=== PATIENT | male | born 1955 | race Caucasian/White ===

== ENCOUNTER 2016-10-07 13:11 | Inpatient (IN) | payer BC ==
[~2016-10-07] VITALS: Ht 190.5 cm; Wt 125.5 kg
[~2016-10-07 13:11] MED LIST: ADVIN50/60 INH; AMIO200T4 PO; APIX1TAB3 PO; CYAN1CAP3 PO; FLV1 PO; MCRK/20 PO; METO50TA16 PO; RMR15 PO; ZCR40 PO
[2016-10-07] MEDS ORDERED: METHYLPREDNISOLONE 125 MG VIAL IV STA (13:25)
[2016-10-07] MEDS ORDERED: ALBUT/IPRATROP 3MG/0.5MG NEB 3 ML VIAL INH ONE (13:30)
[2016-10-07 13:40] VITALS: PULSE 87; O2SAT 88
[2016-10-07 13:51] LABS: BASO % 0.3 %; BASO ABS # 0.02 K/uL (0-0.2); EOS % 0.5 %; HEMATOCRIT 44.4 % (42-52); IG% 0.3 %; LYMPH % 5.9 %; LYMPH ABS # 0.44 K/uL (1.2-3.4); MEAN CORPUSCULAR HEMOGLOBIN 34.8 pg (25-34); MEAN CORPUSCULAR HGB CONC 31.3 g/dl (32-36); MEAN PLATELET VOLUME 9.7 fL (7.4-10.4); MONO % 15.3 %; NEUT % 77.7 %; PLATELET COUNT 127 K/uL (130-400); WHITE BLOOD COUNT 7.52 K/uL (4.8-10.8)
--- NOTE | 2016-10-07 13:52 | EMERGENCY ROOM VISIT NOTE ---
History Report prepared by Vinayak: Quinton Olguin Under the Supervision of: Dr. Dakotah Mcnally D.O. First contact with patient: 13:22 Chief Complaint: RESPIRATORY PROBLEMS Stated Complaint: SOB, CHEST DISCOMFORT, COPD, CHF History of Present Illness The patient is a 61 year old male who presents to the Emergency Room with complaints of waxing and waning respiratory problems that started around 2 weeks ago. Per the nursing staff, the patient is 77% on 6 liters of oxygen currently. The patient wears oxygen all the time. He wears 2 liters at work and 4 liters at home. He says he is usually at around 92%. The patient says he has had a good handle on the shortness of breath with steroids and antibiotics, but today his symptoms worsened again. He says his legs are weak and his legs are a bit swollen. He is coughing clear mucous. He had one jab of chest pain in the waiting room, but he denies any other chest pain. He also denies fevers or current runny nose. The patient had an appointment scheduled for 1300 today with his primary care physician but he went here instead. The patient is not currently on steroids or any nebulizer treatments. He has COPD. He does not smoke. The patient also has CHF. He traveled to the [facility] a couple weeks ago. Source of History: patient, spouse/significant other, nursing staff Onset: Around 2 weeks ago Position: other (global - respiratory problems) Symptom Intensity: 77 on 6 liters Timing: waxes/wanes Associated Symptoms: + SOB, + cough, + weakness (legs), No chest pain ( other than one jab in waiting room), No fevers Note: Associated symptoms: Legs a bit swollen. Denies current runny nose. Review of Systems See HPI for pertinent positives & negatives. A total of 10 systems reviewed and were otherwise negative. Past Medical & Surgical Medical Problems: (1) Acute renal insufficiency (2) Atrial fibrillation with RVR (3) Bilateral lower leg cellulitis (4) CHF (congestive heart failure) (5) COPD (chronic obstructive pulmonary disease) (6) Hyponatremia (7) PNA (pneumonia) (8) SIRS (systemic inflammatory response syndrome) Family History Cancer Heart disease Hypertension Social History Smoking Status: Former Smoker Drug Use: none Marital Status: Housing Status: lives with significant other Occupation Status: employed Current/Historical Medications Scheduled Amiodarone Hcl (Cordarone), 200 MG PO BID Apixaban (Eliquis), 5 MG PO BID Cyanocobalamin (B-12), 1,000 MCG PO DAILY Fluticasone Prop/Salmeterol (Advair Diskus 500/50 60 Dose), 1 PUFF INH BID Furosemide (Lasix), 20 MG PO DAILY Ipratropium-Albuterol (Combivent Respimat), 1 PUFFS INH QID Metoprolol Tartrate (Lopressor) (Lopressor), 50 MG PO TID Omeprazole (Prilosec), 20 MG PO BID Potassium Chloride (Potassium Chloride ER), 20 MEQ PO BID Simvastatin (Simvastatin), 40 MG PO QPM Allergies Coded Allergies: No Known Allergies (Unverified , 10/07/16) Physical Exam Vital Signs Date Time Temp Pulse Resp B/P Pulse Ox O2 Delivery O2 Flow Rate FiO2 10/07/16 15:19 68 22 165/69 96 Mask 10.0 10/07/16 14:16 65 10/07/16 14:15 64 24 172/68 96 Nasal Cannula 6.0 10/07/16 13:46 95 Nasal Cannula 6.0 10/07/16 13:40 87 22 88 Nasal Cannula 6.0 10/07/16 13:25 85 Nasal Cannula 6.0 10/07/16 13:25 85 Nasal Cannula 6.0 10/07/16 13:17 37.1 68 20 150/74 72 Nasal Cannula 4.0 Physical Exam GENERAL: Patient is awake, alert, somewhat anxious appearing but does not appear to be in pain. EYES: The conjunctivae are clear. The pupils are round and reactive. EARS, NOSE, MOUTH AND THROAT: The nose is without any evidence of any deformity. Mucous membranes are moist tongue is midline NECK: The neck is nontender and supple. RESPIRATORY: Lung sounds diminished throughout. Significant tachypnea and conversational dyspnea noted. Expiratory wheezing in all wayne. CARDIOVASCULAR: Regular rate and rhythm noted there no murmurs rubs or gallops normal S1 normal S2 GASTROINTESTINAL: The abdomen is soft. Bowel sounds are present in all quadrants. Abdomen is nontender MUSCULOSKELETAL/EXTREMITIES: There is no evidence of gross deformity full range of motion is noted in the hips and shoulders SKIN: Trace pedal edema bilaterally. No calf tenderness elicited. NEUROLOGIC: Patient is awake alert and oriented x3. Medical Decision & Procedures ER Provider Diagnostic Interpretation: X-ray results as stated below per interpretation by me and the radiologist. CHEST ONE VIEW PORTABLE CLINICAL HISTORY: Respiratory distress. Atypical chest pain COMPARISON STUDY: 02/22/2016 FINDINGS: The heart is enlarged. There is mild interstitial edema. There is a small right pleural effusion. There is no lobar consolidation.[ IMPRESSION: Cardiomegaly and mild interstitial edema. Small right pleural effusion. Electronically signed by: Juan Luis Aguilar M.D. 10/07/2016 1:53 PM Laboratory Results Test 10/07/16 00:00 10/07/16 13:30 10/07/16 13:43 Urine Color DK YELLOW Urine Appearance CLEAR (CLEAR) Urine pH 6.5 (4.5-7.5) Urine Specific [place] 1.023 (1.000-1.030) Urine Protein 1+ (NEG) Urine Glucose (UA) NEG (NEG) Urine Ketones TRACE (NEG) Urine Occult Blood NEG (NEG) Urine Nitrite NEG (NEG) Urine Bilirubin NEG (NEG) Urine Urobilinogen NEG (NEG) Urine Leukocyte Esterase TRACE (NEG) Urine WBC (Auto) 1-5 /hpf (0-5) Urine RBC (Auto) 0-4 /hpf (0-4) Urine Hyaline Casts (Auto) 0 /lpf (0-5) Urine Epithelial Cells (Auto) 5-10 /lpf (0-5) Urine Bacteria (Auto) NEG (NEG) Influenza Type A Antigen Neg for Influ A (NEG) Influenza Type B Antigen Neg for Influ B (NEG) RDW Standard Deviation 57.8 fL (36.4-46.3) RDW Coefficient of Variation 14.1 % (11.5-14.5) White Blood Count 7.52 K/uL (4.8-10.8) Red Blood Count 4.00 M/uL (4.7-6.1) Hemoglobin 13.9 g/dL (14.0-18.0) Hematocrit 44.4 % (42-52) Mean Corpuscular Volume 111.0 fL (80-100) Mean Corpuscular Hemoglobin 34.8 pg (25-34) Mean Corpuscular Hemoglobin Concent 31.3 g/dl (32-36) Platelet Count 127 K/uL (130-400) Mean Platelet Volume 9.7 fL (7.4-10.4) Neutrophils (%) (Auto) 77.7 % Lymphocytes (%) (Auto) 5.9 % Monocytes (%) (Auto) 15.3 % Eosinophils (%) (Auto) 0.5 % Basophils (%) (Auto) 0.3 % Neutrophils # (Auto) 5.85 K/uL (1.4-6.5) Lymphocytes # (Auto) 0.44 K/uL (1.2-3.4) Monocytes # (Auto) 1.15 K/uL (0.11-0.59) Eosinophils # (Auto) 0.04 K/uL (0-0.5) Basophils # (Auto) 0.02 K/uL (0-0.2) Immature Granulocyte % (Auto) 0.3 % Immature Granulocyte # (Auto) 0.02 K/uL (0.00-0.02) Macrocytosis PRESENT Prothrombin Time 13.0 SECONDS (9.0-12.0) Prothromb Time International Ratio 1.2 (0.9-1.1) Activated Partial Thromboplast Time 35.5 SECONDS (21.0-31.0) Partial Thromboplastin Ratio 1.4 Est Creatinine Clear Calc Drug Dose 97.2 ml/min Magnesium Level 2.1 mg/dl (1.8-2.4) Total Bilirubin 1.1 mg/dl (0.2-1) Aspartate Amino Transf (AST/SGOT) 40 U/L (15-37) Alanine Aminotransferase (ALT/SGPT) 49 U/L (12-78) Alkaline Phosphatase 124 U/L (45-117) Total Creatine Kinase 23 U/L (39-308) Creatine Kinase MB < 0.5 ng/ml (0.5-3.6) Creatine Kinase MB Ratio (0-3.0) Troponin I < 0.015 ng/ml (0-0.045) Pro-B-Type Natriuretic Peptide 3945 pg/ml (0-900) Total Protein 7.0 gm/dl (6.4-8.2) Albumin 3.6 gm/dl (3.4-5.0) Globulin 3.4 gm/dl (2.5-4.0) Albumin/Globulin Ratio 1.1 (0.9-2) Venous Blood pH 7.34 (7.36-7.41) Venous Blood Partial Pressure CO2 74 mmHg (38.0-50.0) Venous Blood Partial Pressure O2 19 mmHg Venous Blood HCO3 39 mmol/L Venous Blood Oxygen Saturation < 60.0 % Venous Blood Base Excess 10.5 mmol/L Laboratory results per my review. Medications Administered Medications (Trade) Dose Ordered Sig/[place] Route Start Time Stop Time Status Last Admin Dose Admin Albuterol/ Ipratropium (Duoneb) 12 ml ONE ONCE INH 10/07/16 13:30 10/07/16 13:31 DC 10/07/16 13:36 12 ML Methylprednisolone Sodium Succinate (Solu-Medrol IV) 125 mg NOW STAT IV 10/07/16 13:25 10/07/16 13:27 DC 10/07/16 13:25 125 MG Levofloxacin (Levaquin / D5W) 750 mg NOW STAT IV 10/07/16 14:44 10/07/16 14:45 DC 10/07/16 14:44 750 MG Lorazepam (Ativan Inj) 1 mg Q4H PRN IV 10/07/16 15:15 11/06/16 15:14 10/07/16 22:40 1 MG ECG Indication: SOB/dyspnea Rate (beats per minute): 66 Rhythm: normal sinus Findings: PVC, other (ST segment flattening noted) Change: no significant change (from April 26 2016) ED Course 1320 The patient was evaluated in room A1. A complete history and physical examination were performed. 1325: Ordered Solu-Medrol IV 125 mg IV. 1330: Ordered Duoneb 12 ml INH. 1443: I reevaluated the patient and he is still wheezing a lot. The patient verbally expressed agreement and understanding of the treatment plan. The patient will be evaluated for further treatment. 1444: Ordered Levaquin / D5W 750 mg IV. 1447: I discussed the patient with Dr. Hernandez - [facility] engineering programmer - he will evaluate the patient for further treatment. Medical Decision Differential diagnosis: Etiologies such as infections, reactive airway disease, pneumonia, pneumothorax , COPD, CHF, cardiac ischemia, pulmonary embolism, musculoskeletal, gastrointestinal, as well as others were entertained. Nursing notes reviewed. The patient is a 61-year-old male who presented to the emergency department for an evaluation of shortness of breath. The patient is a history of COPD. He currently wears oxygen. He states that he's had significant shortness of breath and cough despite wearing supplemental oxygen. The patient was treated with an hour-long nebulizer in emergency department. He was also treated with IV steroids and IV antibiotics. I discussed the patient's laboratory and radiographic studies with him. He continued to have significant symptoms as well as a significant oxygen requirement while in the emergency department. This reason I discussed his case with the on-call [facility] hospitalist group. They have agreed to evaluate the patient in emergency apartment for further management and disposition. The patient was reevaluated multiple times. Consults Time Called: [id number] Consulting Physician: Dr. Mary HAYDEN engineering programmer Returned Call: [phone] I discussed the patient with Dr. Mary HAYDEN engineering programmer - he will evaluate the patient for further treatment. Impression Primary Impression: COPD exacerbation Additional Impressions: Hypoxia, Acute bronchitis Critical Care I have personally spent greater than 45 minutes of critical care time in the direct management of this patient. This includes bedside care, interpretation of diagnostic studies, and testing, discussion with consultants, patient, and family members, and other required patient management activities. This 45 minutes is in excess of all separately billable procedures. Scribe Attestation The scribe's documentation has been prepared under my direction and personally reviewed by me in its entirety. I confirm that the note above accurately reflects all work, treatment, procedures, and medical decision making performed by me. Departure Information Dispostion Being Evaluated By Hospitalist Luis Melendez M.D. (PCP) Patient Instructions A Signature Page, My [facility]
[2016-10-07 13:54] LABS: VEN BLOOD GAS BASE EXCESS 10.5 mmol/L; VENOUS BLOOD GAS PCO2 74 mmHg (38.0-50.0); VENOUS BLOOD GAS PO2 19 mmHg
[2016-10-07 13:55] LABS: VEN BLD GAS O2 SATURATION < 60.0 %
[2016-10-07 14:00] LABS: INR 1.2 (0.9-1.1); PARTIAL THROMBOPLASTIN RATIO 1.4
[2016-10-07 14:08] LABS: ALT/SGPT 49 U/L (12-78); BLOOD UREA NITROGEN 16 mg/dl (7-18); BUN/CREATININE RATIO 14.5 (10-20); CALCIUM 8.9 mg/dl (8.5-10.1); CARBON DIOXIDE 34 mmol/L (21-32); CHLORIDE 96 mmol/L (98-107); GLUCOSE 87 mg/dl (70-99); POTASSIUM 4.7 mmol/L (3.5-5.1); SODIUM 137 mmol/L (136-145)
[2016-10-07 14:13] LABS: ALB/GLOB RATIO 1.1 (0.9-2); ALKALINE PHOSPHATASE 124 U/L (45-117); AST/SGOT 40 U/L (15-37)
[2016-10-07 14:15] LABS: COMPLETE YES
[2016-10-07] MEDS ORDERED: LEVAQUIN 750MG / 150ML D5W IV STA (14:44)
[2016-10-07] MEDS ORDERED: ONDANSETRON INJ 2 MG/ML 2 ML VIAL IV PRN (15:15)
[2016-10-07] MEDS ORDERED: MAGNESIUM HYDROXIDE SUSP 30 ML UDC PO PRN (15:15)
[2016-10-07] MEDS ORDERED: OPTIRAY 320 IV PRN (15:30)
--- NOTE | 2016-10-07 15:49 | History and Physical ---
History & Physical Date & Time of Service: Oct 07, 2016 at 15:27 Chief Complaint: Sob, Chest Discomfort, Copd, Chf Primary Care Physician: Luis Azevedo M.D. History of Present Illness Source: patient, partner This is a 61 yo m with known COPD, HTN, CHF and Afibb that is presenting to us with worsening SOB over the past week. He notes that over the past week any sort of physical activity will make him very fatigued and SOB. He is unable to even walk from one room to another in his house without this shortness of breath. He was concerned about this and arranged to see his PCP this afternoon however when he had a particularly bad episode of SOB he thought it was best to come to the ED instead fo the PCP. He notes that he typically has to use 4 L of O2 at home. In the ED he arrived with an O2 Sat of 77% and was requiring 6 L of oxygen to maintain above a 90% of O2 sat. He notes that he has also had a productive cough but denies any hemoptysis only clear sputum. Denies any fever, chest pain (only the sensation of tightness from not being able to take a deep breath), abdominal pain, numbness/ tingling of limbs. He has not had any recent illnesses but many of his coworkers have been ill. He has recently travelled to [facility] and returned on Sep 21. He has a h/o of CHF and his last echo was done during the previous admission. He has been compliant with his medications. Denies any swelling of limbs or sudden increase in his weight. He takes Eliquis and Metoprolol for Afibb and is currently NSR. He follows with Dr Calderon. He mentioned that he does drink on a daily basis and has 4-5 beers daily with occasional drink of liquor. Quit smoking 3-4 years ago. Past Medical/Surgical History Medical Problems: (1) Atrial fibrillation with RVR Status: Resolved (2) Bilateral lower leg cellulitis Status: Resolved (3) CHF (congestive heart failure) Status: Chronic (4) COPD (chronic obstructive pulmonary disease) Status: Chronic (5) PNA (pneumonia) Status: Resolved (6) SIRS (systemic inflammatory response syndrome) Status: Resolved Family History Cancer Heart disease Hypertension Social History Smoking Status: Former Smoker Smokeless Tobacco Use: No Alcohol Use: heavy Drug Use: none Marital Status: Housing status: lives with significant other Occupational Status: employed Immunizations History of Influenza Vaccine: Yes History of Tetanus Vaccine?: Yes History of Pneumococcal: Yes History of Hepatitis B Vaccine: No Multi-Drug Resistant Organisms History of MDRO: No Allergies Coded Allergies: No Known Allergies (Unverified , 10/07/16) Home Medications Scheduled Amiodarone Hcl (Cordarone), 200 MG PO BID Apixaban (Eliquis), 5 MG PO BID Cyanocobalamin (B-12), 1,000 MCG PO DAILY Fluticasone Prop/Salmeterol (Advair Diskus 500/50 60 Dose), 1 PUFF INH BID Furosemide (Lasix), 20 MG PO DAILY Ipratropium-Albuterol (Combivent Respimat), 1 PUFFS INH QID Metoprolol Tartrate (Lopressor) (Lopressor), 50 MG PO TID Omeprazole (Prilosec), 20 MG PO BID Potassium Chloride (Potassium Chloride ER), 20 MEQ PO BID Simvastatin (Simvastatin), 40 MG PO QPM Review of Systems Constitutional: + weakness, No fever, No weight loss ENT: No hearing loss Respiratory: + cough, + dyspnea at rest, + dyspnea on exertion, + shortness of breath, + sputum, + wheezing, No hemoptysis Cardiovascular: No chest pain, No orthopnea Abdomen: No constipation, No diarrhea, No nausea, No pain, No vomiting Genitourinary - Male: No dysuria, No hematuria Neurologic: + weakness, No balance problems, No memory loss, No numbness/ tingling Psychiatric: No anxiety, No depression symptoms Endocrine: + fatigue Hematologic / Lymphatic: No abnormal bleeding/bruising Integumentary: No rash Physical Exam Vital Signs Date Time Temp Pulse Resp B/P Pulse Ox O2 Delivery O2 Flow Rate FiO2 10/07/16 15:19 68 22 165/69 96 Mask 10.0 10/07/16 14:16 65 10/07/16 14:15 64 24 172/68 96 Nasal Cannula 6.0 10/07/16 13:46 95 Nasal Cannula 6.0 10/07/16 13:40 87 22 88 Nasal Cannula 6.0 10/07/16 13:25 85 Nasal Cannula 6.0 10/07/16 13:25 85 Nasal Cannula 6.0 10/07/16 13:17 37.1 68 20 150/74 72 Nasal Cannula 4.0 General Appearance: WD/WN, no apparent distress Head: normocephalic, atraumatic Eyes: normal inspection ENT: normal ENT inspection Neck: supple Respiratory/Chest: + decreased breath sounds (bases), + accessory muscle use, + wheezing, + pertinent finding (coarse breath sounds througout) Cardiovascular: regular rate, rhythm, no murmur Abdomen/GI: normal bowel sounds, non tender, soft Back: normal inspection, no CVA tenderness Extremities/Musculoskelatal: no calf tenderness, no pedal edema Neurologic/Psych: alert, normal mood/affect, oriented x 3 Skin: normal color, warm/dry, no rash, + pertinent finding (stasis dermatitis) Lymphatic: no adenopathy Diagnostics Laboratory Results Results Past 24 Hours Test 10/07/16 00:00 10/07/16 13:30 10/07/16 13:43 10/07/16 15:13 Range/Units Influenza Type A Antigen Neg for Influ A NEG Influenza Type B Antigen Neg for Influ B NEG White Blood Count 7.52 4.8-10.8 K/uL Red Blood Count 4.00 4.7-6.1 M/uL Hemoglobin 13.9 14.0-18.0 g/dL Hematocrit 44.4 42-52 % Mean Corpuscular Volume 111.0 80-100 fL Mean Corpuscular Hemoglobin 34.8 25-34 pg Mean Corpuscular Hemoglobin Concent 31.3 32-36 g/dl Platelet Count 127 130-400 K/uL Mean Platelet Volume 9.7 7.4-10.4 fL Neutrophils (%) (Auto) 77.7 % Lymphocytes (%) (Auto) 5.9 % Monocytes (%) (Auto) 15.3 % Eosinophils (%) (Auto) 0.5 % Basophils (%) (Auto) 0.3 % Neutrophils # (Auto) 5.85 1.4-6.5 K/uL Lymphocytes # (Auto) 0.44 1.2-3.4 K/uL Monocytes # (Auto) 1.15 0.11-0.59 K/uL Eosinophils # (Auto) 0.04 0-0.5 K/uL Basophils # (Auto) 0.02 0-0.2 K/uL RDW Standard Deviation 57.8 36.4-46.3 fL RDW Coefficient of Variation 14.1 11.5-14.5 % Immature Granulocyte % (Auto) 0.3 % Immature Granulocyte # (Auto) 0.02 0.00-0.02 K/uL Macrocytosis PRESENT Prothrombin Time 13.0 9.0-12.0 SECONDS Prothromb Time International Ratio 1.2 0.9-1.1 Activated Partial Thromboplast Time 35.5 21.0-31.0 SECONDS Partial Thromboplastin Ratio 1.4 Sodium Level 137 136-145 mmol/L Potassium Level 4.7 3.5-5.1 mmol/L Chloride Level 96 98-107 mmol/L Carbon Dioxide Level 34 21-32 mmol/L Anion Gap 7.0 3-11 mmol/L Blood Urea Nitrogen 16 7-18 mg/dl Creatinine 1.10 0.60-1.40 mg/dl Est Creatinine Clear Calc Drug Dose 97.2 ml/min Estimated GFR () 82.9 Estimated GFR (Non- 71.6 BUN/Creatinine Ratio 14.5 10-20 Random Glucose 87 70-99 mg/dl Calcium Level 8.9 8.5-10.1 mg/dl Total Bilirubin 1.1 0.2-1 mg/dl Aspartate Amino Transf (AST/SGOT) 40 15-37 U/L Alanine Aminotransferase (ALT/SGPT) 49 12-78 U/L Alkaline Phosphatase 124 45-117 U/L Total Creatine Kinase 23 39-308 U/L Creatine Kinase MB < 0.5 0.5-3.6 ng/ml Creatine Kinase MB Ratio 0-3.0 Troponin I < 0.015 0-0.045 ng/ml Pro-B-Type Natriuretic Peptide 3945 0-900 pg/ml Total Protein 7.0 6.4-8.2 gm/dl Albumin 3.6 3.4-5.0 gm/dl Globulin 3.4 2.5-4.0 gm/dl Albumin/Globulin Ratio 1.1 0.9-2 Venous Blood pH 7.34 7.36-7.41 Venous Blood Partial Pressure CO2 74 38.0-50.0 mmHg Venous Blood Partial Pressure O2 19 mmHg Venous Blood HCO3 39 mmol/L Venous Blood Oxygen Saturation < 60.0 % Venous Blood Base Excess 10.5 mmol/L Microbiology Results 10/07/16 Blood Culture, Received Pending 10/07/16 Blood Culture, Received Pending Diagnostic Radiology CHEST ONE VIEW PORTABLE CLINICAL HISTORY: Respiratory distress. Atypical chest pain COMPARISON STUDY: 02/22/2016 FINDINGS: The heart is enlarged. There is mild interstitial edema. There is a small right pleural effusion. There is no lobar consolidation.[ IMPRESSION: Cardiomegaly and mild interstitial edema. Small right pleural effusion. EKG bpm 66 qtc 444 NSR occasional PVC no ischemic changes Impression Assessment and Plan This is a 61 yo m suffering from acute hypoxic/hypercapnic respiratory failure secondary to acute on chronic COPD exacerbation Hypoxic respiratory failure secondary to acute on chronic COPD exacerbation - Tele admission - Levo was given in the ED - will order procalcitonin to help gauge care tomorrow, will have Levo ordered for 1500 - Methypred 60 mg q 6 h - Duoneb - continue home inhalers - incentive micah and flutter valve - blood culture pending - influenza neg - Chronic CHF- Stable - continue home meds - monitor I&O and daily weights - elevated BNP from BL most likely secondary to the COPD exacerbation - will defer echo for now HTN - continue home meds A fibb - continue home meds Alcohol withdrawal - Ativan 1 mg prn for withdrawal symptoms Thrombocytopenia most likely secondary to alcohol abuse - recheck in am - Mg levels as commonly low with alcohol abuse DVT Prophylaxis Eliquis FULL CODE Level of Care Telemetry Advanced Directives Existing Living Will: Yes Resuscitation Status FULL RESUSCITATION VTE Prophylaxis VTE Risk Assessment Done? Y/N: Yes Risk Level: Moderate Given or contraindicated: Other Anticoagulation Social Service Consult None Apply Note Total Time: Critical Care 30 - 74 minutes I evaluated this patient and performed a physical exam. I reviewed the orders and read this note performed by Dr. Janett Owusu M.D.. I agree with the orders and the entire contents of this note.
[2016-10-07] MEDS ORDERED: IPRATROPIUM BROMIDE/ALBUTEROL respimat INH INH SCH (17:00)
[2016-10-07 17:14] VITALS: BP 146/67; PULSE 72; TEMP 37; O2SAT 89; Ht 190.5 cm; Wt 125.5 kg
[2016-10-07 19:03] LABS: URINE APPEARANCE CLEAR (CLEAR); URINE COLOR DK YELLOW; URINE NITRITE NEG (NEG); URINE PH 6.5 (4.5-7.5); URINE SPECIFIC GRAVITY 1.023 (1.000-1.030); UROBILINOGEN NEG (NEG)
[2016-10-07 19:04] LABS: MANUAL MICROSCOPIC REQUIRED? NO; REVIEW REQ? NO
[2016-10-07 19:05] LABS: URINE BILIRUBIN NEG (NEG)
[2016-10-07] MEDS: METHYLPREDNISOLONE IV 60 MG in SYRINGE 0 ML IV SCH (19:14)
--- NOTE | 2016-10-07 20:52 | DIAGNOSTIC IMAGING REPORT ---
CHEST CTA for PULMONARY ARTERIES CT DOSE: 695.10 mGy.cm HISTORY: Short of breath. Chest discomfort. TECHNIQUE: Multiaxial CT images of the chest were performed following the intravenous administration of contrast to evaluate the pulmonary arteries. Maximal intensity projection images were also obtained. COMPARISON STUDY: Chest CT 02/02/2014. FINDINGS: The liver remains slightly hyperdense. There is an 8 cm cyst within the upper pole of the right kidney containing a few peripheral punctate calcifications. No pleural or pericardial effusions. The heart is mildly enlarged. No mediastinal or hilar lymphadenopathy. No pneumothorax. Trace mucoid material within the trachea. Mild bronchial wall thickening remains unchanged. Moderate emphysema. Small focus of consolidation at the base of the lingula. This may represent atelectasis. A few scattered tree-in-bud nodular opacities within the bilateral lower lobes. There is also focal consolidation at the base of the right lower lobe. Normal caliber thoracic aorta with no evidence for dissection. No evidence for pulmonary embolus. IMPRESSION: 1. No evidence for pulmonary embolus. 2. Patchy densities within the base of the right lower lobe and tree-in-bud nodular opacities within the bilateral lower lobes. This likely represents a pneumonia/infectious bronchiolitis. This could be due to prior aspiration. 3. Emphysema. Electronically signed by: Skyler Lamar M.D. 10/07/2016 8:50 PM
[2016-10-07 20:54] VITALS: BP 150/71; PULSE 62
[2016-10-07] MEDS: FLUTICASONE/SALMETEROL (ADVAIR) 500/50 INH 14 PUFF INH SCH (20:55)
[2016-10-07] MEDS: SIMVASTATIN 40 MG TAB PO SCH (20:56)
[2016-10-07] MEDS: POTASSIUM CHLORIDE 20 MEQ TABCR PO SCH (20:56)
[2016-10-07] MEDS: APIXABAN 2.5 MG TAB PO SCH (20:56)
[2016-10-07] MEDS: AMIODARONE 200 MG TAB PO SCH (20:56)
[2016-10-07] MEDS: METOPROLOL TARTRATE 50 MG TAB PO SCH (20:57)
[2016-10-07] MEDS: PANTOprazole SOD 40 MG TAB PO SCH (20:57)
[2016-10-07] MEDS: ALBUT/IPRATROP 3MG/0.5MG NEB 3 ML VIAL INH SCH (21:00)
[2016-10-07 21:04] VITALS: PULSE 64; O2SAT 88
[2016-10-07] MEDS: LORAZEPAM 2 MG/ML 1 ML VIAL IV PRN (22:40)
[2016-10-07] MEDS: ZOLPIDEM TARTRATE 5 MG TAB PO PRN (22:40)
[2016-10-08] VITALS (15 sets, daily range): BP systolic 117–170; BP diastolic 66–80; PULSE 53–93; TEMP 36.3–36.8; O2SAT 90–94
[2016-10-08] MEDS: METHYLPREDNISOLONE IV 60 MG in SYRINGE 0 ML IV SCH ×4 (02:26→19:50)
[2016-10-08 07:21] LABS: HEMATOCRIT 42.3 % (42-52); MEAN CELL VOLUME 109.3 fL (80-100); MEAN CORPUSCULAR HEMOGLOBIN 35.1 pg (25-34); MEAN CORPUSCULAR HGB CONC 32.2 g/dl (32-36); MEAN PLATELET VOLUME 9.7 fL (7.4-10.4); PLATELET COUNT 121 K/uL (130-400); RED BLOOD COUNT 3.87 M/uL (4.7-6.1); WHITE BLOOD COUNT 4.76 K/uL (4.8-10.8)
[2016-10-08] MEDS: ALBUT/IPRATROP 3MG/0.5MG NEB 3 ML VIAL INH SCH ×4 (07:24→20:18)
[2016-10-08 07:50] LABS: BUN/CREATININE RATIO 17.4 (10-20); CALCIUM 8.5 mg/dl (8.5-10.1); CREATININE 1.1 mg/dl (0.60-1.40); POTASSIUM 5.2 mmol/L (3.5-5.1)
[2016-10-08] MEDS: FLUTICASONE/SALMETEROL (ADVAIR) 500/50 INH 14 PUFF INH SCH ×2 (08:18→20:55)
[2016-10-08] MEDS: AMIODARONE 200 MG TAB PO SCH ×2 (08:18→20:54)
[2016-10-08] MEDS: PANTOprazole SOD 40 MG TAB PO SCH ×2 (08:19→20:53)
[2016-10-08] MEDS: APIXABAN 2.5 MG TAB PO SCH ×2 (08:19→20:54)
[2016-10-08] MEDS: CYANOCOBALAMIN 500 MCG TAB (VIT B-12) PO SCH (08:19)
[2016-10-08] MEDS: POTASSIUM CHLORIDE 20 MEQ TABCR PO SCH (08:19)
[2016-10-08] MEDS: METOPROLOL TARTRATE 50 MG TAB PO SCH ×3 (08:19→20:55)
[2016-10-08] MEDS: FUROSEMIDE 20 MG TAB PO SCH (08:20)
[2016-10-08] MEDS: LEVOFLOXACIN / D5W 750 MG in PREMIXED IN D5W 150 ML IV SCH (14:58)
--- NOTE | 2016-10-08 17:53 | Hospitalist Progress Note ---
Hospitalist Progress Note Date of Service Oct 08, 2016. Subjective Pt evaluation today including: conversation w/ patient, physical exam, chart review, lab review, review of studies, review of inpatient medication list Patient reports feeling improved today, not yet at his baseline. He uses 4L chronically at home. He is on 6L currently. No chest pain, nausea, or f/c. Additional Comments: A 10 system review was performed and all were negative. Positives were placed in the subjective section. Objective Vital Signs Date Time Temp Pulse Resp B/P Pulse Ox O2 Delivery O2 Flow Rate FiO2 10/08/16 16:30 56 18 94 Nasal Cannula 5.0 10/08/16 16:00 92 Nasal Cannula 4.0 10/08/16 15:36 36.6 53 20 137/71 91 Nasal Cannula 5.0 10/08/16 14:57 90 117/67 10/08/16 11:57 36.4 60 21 142/74 91 Nasal Cannula 5.0 10/08/16 11:31 93 20 91 Nasal Cannula 6.0 10/08/16 11:04 36.6 67 20 90 6.0 10/08/16 08:00 90 Nasal Cannula 6.0 10/08/16 07:27 67 20 90 Nasal Cannula 6.0 10/08/16 07:24 36.6 60 20 151/80 91 Nasal Cannula 6.0 10/08/16 04:00 92 Nasal Cannula 5.0 Humidified Oxygen 10/08/16 03:41 36.3 60 20 163/78 92 Nasal Cannula 5.0 10/08/16 00:00 36.3 61 170/80 90 Nasal Cannula 6.0 10/08/16 00:00 90 Nasal Cannula 6.0 Humidified Oxygen 10/07/16 21:04 64 20 88 Nasal Cannula 4.0 10/07/16 20:54 62 150/71 10/07/16 20:00 Nasal Cannula 4.0 Physical Exam Notes: GEN: Awake, alert, and oriented x 3. Not in acute distress HEENT: Tm's intact, no inflammation, EOMI, PERRLA, MMM Neck: Soft, supple Lungs: + Expiratory wheezes b/l. Heart: REG, nrl S1S2 without murmurs, rubs or gallops Abdomen: Soft, NT, ND, + BS EXT: No C/C/E NEURO: CN's II-XII grossly intact, non-focal Skin: warm, dry, no rashes PSYCH: pleasant, cooperative, no signs of significant anxiety or depression. Laboratory Results Last 24 Hours Test 10/08/16 07:06 White Blood Count 4.76 K/uL Red Blood Count 3.87 M/uL Hemoglobin 13.6 g/dL Hematocrit 42.3 % Mean Corpuscular Volume 109.3 fL Mean Corpuscular Hemoglobin 35.1 pg Mean Corpuscular Hemoglobin Concent 32.2 g/dl RDW Standard Deviation 55.3 fL RDW Coefficient of Variation 13.8 % Platelet Count 121 K/uL Mean Platelet Volume 9.7 fL Sodium Level 138 mmol/L Potassium Level 5.2 mmol/L Chloride Level 97 mmol/L Carbon Dioxide Level 34 mmol/L Anion Gap 7.0 mmol/L Blood Urea Nitrogen 19 mg/dl Creatinine 1.10 mg/dl Est Creatinine Clear Calc Drug Dose 96.4 ml/min Estimated GFR () 82.9 Estimated GFR (Non- 71.6 BUN/Creatinine Ratio 17.4 Random Glucose 157 mg/dl Calcium Level 8.5 mg/dl Assessment and Plan 1) Hypoxic respiratory failure secondary to acute on chronic COPD exacerbation - IV Levaquin, IV steroid, pulmonology consult pending. nebs. 2) Chronic CHF- Stable no decompensation. - continue home meds - monitor I&O and daily weights 3) HTN - Stable on metoprolol. 4) A.Fib - Chronic - rate controlled with metoprolol and amiodarone. on Eliquis. 5) Monitor for Alcohol withdrawal - Ativan 1 mg prn for withdrawal symptoms 6) Hyperlipidemia - Zocor continued 7) GERD - Protonix continued. DVT Prophylaxis is covered Eliquis Continued [facility] stay due to: multiple IV medications needed Discharge planning: home with home health
--- NOTE | 2016-10-08 19:30 | PULMONARY CONSULTATION ---
DATE OF CONSULTATION: 10/08/2016 TIME: 4:25 p.m. REPORT OF CONSULTATION: The patient was seen in room 278, bed 1. He is a 61-year-old male, with a longstanding history of severe COPD. For approximately 7-10 days, he has had more shortness of breath than normal. He wears oxygen almost continuously. Typically, he wears 4 liters at home and 2 liters at work. He has a portable concentrator. Sometimes, at work, he will be off of oxygen for an hour or so. He does check his pulse oximetries. Recently, he has been noticing that his oxygen saturations have been lower than his usual. In fact, in the Emergency Room, he had a saturation of only 72% on a 4 liter nasal cannula. He has been feeling more congested in the chest than normal. He coughs, but has small quantities of mucus. The mucus has been clear. There has been no hemoptysis. He has not had chills, fevers or sweats. He denies chest pains. The patient and his recently had a trip to [facility] for about a week. He felt quite good on vacation. However, he started taking some prednisone near the end of the trip apparently because he was not feeling quite well then. The patient has a history of smoking in the past. He quit smoking about 4 years ago, but he smoked between 1 and 1-1/2 packs per day for about 35 years. At home, he has a nebulizer. He does not like to use it. He does not like taking the extra time. He admits he has not been using it regularly at all. He has a Combivent Respimat that he usually takes about twice a day and sometimes 1-2 times more on an as needed basis. He also has Advair that he does take 1 puff b.i.d. He previously had been on Spiriva. He is not sure why they discontinued that, but they stopped that when he was put on the Combivent. He has seen Dr. Giles in his office for pulmonary medicine. Usually he follows up with Dr. Azevedo, his primary physician. The patient has a history of sleep apnea. Apparently, it was severe. He never tolerated either CPAP or BiPAP. He states he is very claustrophobic even with anything on his head. He states he had tried numerous masks. He tried it faithfully for a month or so, but had very little sleep with it. PAST SURGICAL HISTORY: Hernia repair x2. PAST MEDICAL HISTORY: 1. Prior pneumonia. 2. COPD. 3. Congestive heart failure. 4. Atrial fibrillation. 5. Hypertension. 6. Cellulitis. 7. Admitted in April 2016 with hyponatremia. 8. Listed history of QT prolongation. SOCIAL HISTORY: Tobacco as noted above. ETOH -- an average of 4-5, sixteen ounce cans of beer per day. FAMILY HISTORY: Father at age 67, heart disease. Mother at age 84, colon cancer with lung metastasis. MEDICATIONS AT HOME: 1. Amiodarone 200 mg b.i.d. 2. Apixaban 5 mg b.i.d. 3. Vitamin B12 daily. 4. Advair 500/50 one puff b.i.d. 5. Furosemide 20 mg daily. 6. Combivent Respimat ordered q.i.d., but taking less than that. 7. Metoprolol 50 mg t.i.d. 8. Omeprazole 20 mg b.i.d. 9. Potassium 20 mEq b.i.d. 10. Simvastatin 40 mg daily. REVIEW OF SYSTEMS: GENERAL: The patient's energy level is fairly good considering his multiple medical problems. He still works as noted. He works at a [employer] in the [employer], but most of his work is sitting at a desk with a computer. OPHTHALMIC: Denies visual complaints. ENT: Denies nasal congestion or coryza at present. He did have nasal congestion when he first got sick. CARDIAC: No chest pain or palpitations. PULMONARY: As noted above. GASTROINTESTINAL: Appetite was decreased, but when he gets in the hospital his appetite always increases due to the steroids. He denies any bowel complaints. GENITOURINARY: Denies complaints. MUSCULOSKELETAL: No acute complaint of myalgias or arthralgias. DERMATOLOGIC: He has chronic skin discoloration of the lower extremities related to venous insufficiency. No rashes and no significant edema. ENDOCRINE: No lymphadenopathy. PHYSICAL EXAMINATION: GENERAL: The patient is a 61-year-old male, who appeared comfortable at rest. He was cooperative, alert and oriented. He has been afebrile. HEENT: Pupils were reactive to light. Nares were clear. Mouth exam was unremarkable. Pharynx was a Mallampati grade 2. NECK: Palpation of the neck reveals no lymph nodes. CHEST: Showed some increased AP diameter. HEART: Rate is 53 per minute, it was regular. Cardiac rhythm shows normal sinus. Blood pressure is 137/71. LUNGS: Lung wayne revealed wheezing bilaterally. There was marked prolongation to the expiratory phase of respiration. Respiratory rate was 20 breaths per minute. There was no accessory muscle use at rest. Saturation was 91% on 5 liters. ABDOMEN: Moderately obese. BMI is 32.5. Good bowel sounds were heard. There was a scar from prior surgery. There was no tenderness to palpation or masses. EXTREMITIES: Reveals chronic venous insufficiency with some degree of varicose veins noted. No edema was present. IMAGING: Chest x-ray suggested cardiomegaly with mild interstitial edema. A pleural effusion was suggested. However, he did have a CT angio of the chest performed. There was no evidence of pulmonary embolic disease. Emphysematous changes were noted throughout. There were patchy infiltrates in the right base, fairly close to the diaphragm. Some tree-in-bud nodular opacities within the lower lobes were noted. There was a 5 mm lung nodule noted in the left upper lobe. LABORATORIES: CBC shows a white count of 4.76. Hemoglobin is 13.6. Platelets were 121,000. INR was 1.2. PTT was 35.5. Urinalysis showed +1 protein. Venous blood gas showed a pH of 7.34 with a pCO2 of 74 and a pO2 of 19. Very little conclusion can be drawn from that. Electrolytes showed a sodium of 138, potassium 5.2, chloride 97 and bicarb 34. BUN was 19 with a creatinine of 1.1. Procalcitonin was 0.05. Flu test was negative. Liver function tests were normal. ProBNP was 3945. IMPRESSION: 1. Right lower lobe infiltrate, suspicious for pneumonia. 2. Respiratory failure -- acute on chronic with hypoxia and hypercarbia. 3. Emphysema. 4. Obstructive sleep apnea -- intolerant of CPAP and BiPAP. 5. Congestive heart failure. COMMENTS AND RECOMMENDATIONS: The patient clinically is somewhat improved. He, his and I discussed numerous topics. His current medication includes levofloxacin. The patient does have a history of prolonged QT interval. Thus, this may not be the most ideal antibiotic. We will defer this to medicine department. There would be alternatives that he could have, such as cephalosporin with azithromycin. He is on his other usual medicines. The patient is on amiodarone, but I do not strongly suspect amiodarone toxicity. I do not see x-ray changes that would be strongly suggestive for that. His CAT scan does suggest pneumonia; even now his symptom complex is not strongly suspicious. By that I mean he has had no fevers, white count is not elevated and there is no discolored sputum. Nonetheless, would treat with antibiotics based upon the CAT scan. He is on steroids; 60 mg of methylprednisolone q. 6 hours. As he improves, obviously would taper that back. He is on neb treatments with the DuoNebs q.i.d. He really does not like nebulizer treatments even in here. He seems to be bothered by the time and noticing some dryness of his mouth. Nonetheless, I have encouraged him to keep using this and perhaps at home try to use his nebulizers more often. We spoke at length about the significance of severe sleep apnea including problems with his respiratory status. He feels very claustrophobic. I suggested he and his might look online regarding a device called No mask which does not involve any straps. This will be left up to the patient and Dr. Giles who he usually follows with. We discussed also my suggestion that he decrease his alcohol intake, just for overall health reasons. I am not certain of the significance of the elevation of BNP. He does not have significant peripheral edema that would usually be seen with right-sided heart failure. Thank you very much for asking me to assist in his care.
[2016-10-08] MEDS: SIMVASTATIN 40 MG TAB PO SCH (20:53)
[2016-10-08] MEDS: LORAZEPAM 2 MG/ML 1 ML VIAL IV PRN (22:08)
[2016-10-09] VITALS (10 sets, daily range): BP systolic 132–162; BP diastolic 68–80; PULSE 55–81; TEMP 35.8–36.6; O2SAT 68–92
[2016-10-09] MEDS: ZOLPIDEM TARTRATE 5 MG TAB PO PRN ×2 (00:36→23:52)
[2016-10-09] MEDS: METHYLPREDNISOLONE IV 60 MG in SYRINGE 0 ML IV SCH ×3 (02:17→14:02)
[2016-10-09] MEDS: LORAZEPAM 2 MG/ML 1 ML VIAL IV PRN ×2 (02:23→22:13)
[2016-10-09 07:47] LABS: HEMATOCRIT 44.6 % (42-52); MEAN CELL VOLUME 111.2 fL (80-100); MEAN CORPUSCULAR HEMOGLOBIN 34.9 pg (25-34); MEAN CORPUSCULAR HGB CONC 31.4 g/dl (32-36); MEAN PLATELET VOLUME 10.1 fL (7.4-10.4); PLATELET COUNT 160 K/uL (130-400); RED BLOOD COUNT 4.01 M/uL (4.7-6.1); WHITE BLOOD COUNT 15.27 K/uL (4.8-10.8)
[2016-10-09] MEDS: ALBUT/IPRATROP 3MG/0.5MG NEB 3 ML VIAL INH SCH ×4 (07:49→20:00)
[2016-10-09] MEDS: AMIODARONE 200 MG TAB PO SCH ×2 (07:56→21:54)
[2016-10-09] MEDS: FLUTICASONE/SALMETEROL (ADVAIR) 500/50 INH 14 PUFF INH SCH ×2 (07:56→21:53)
[2016-10-09] MEDS: FUROSEMIDE 20 MG TAB PO SCH (07:58)
[2016-10-09] MEDS: APIXABAN 2.5 MG TAB PO SCH ×2 (07:58→21:54)
[2016-10-09] MEDS: METOPROLOL TARTRATE 50 MG TAB PO SCH ×3 (07:58→21:54)
[2016-10-09] MEDS: PANTOprazole SOD 40 MG TAB PO SCH ×2 (07:59→21:53)
[2016-10-09] MEDS: CYANOCOBALAMIN 500 MCG TAB (VIT B-12) PO SCH (07:59)
[2016-10-09 09:18] LABS: BUN/CREATININE RATIO 29.7 (10-20); CALCIUM 8.7 mg/dl (8.5-10.1); CREATININE 1.4 mg/dl (0.60-1.40); POTASSIUM 5.5 mmol/L (3.5-5.1)
[2016-10-09] MEDS ORDERED: SODIUM POLYST. SULF SUSP 15G/60ML PO STA (09:32)
[2016-10-09] MEDS: LEVOFLOXACIN / D5W 750 MG in PREMIXED IN D5W 150 ML IV SCH (14:04)
--- NOTE | 2016-10-09 16:05 | PULMONARY PROGRESS NOTE ---
DATE: 10/09/2016 TIME: 3:35 p.m. SUBJECTIVE: The patient seems a bit out of sorts. He says he is frustrated at being here. He has only been hospitalized for approximately 48 hours. He feels like nothing is getting done. He admitted that it is easier for him to walk to the bathroom than it had been before. He acknowledges that he is still wheezing, but he states he always wheezes. He states his cough is mild. OBJECTIVE: GENERAL: The patient did not appear in any distress. VITAL SIGNS: He is afebrile with a temperature of 36.3. ENT: Unchanged from the exam yesterday. HEART: Heart rate was 72 per minute. The rhythm was regular. LUNGS: Beltran revealed moderate wheeze and rhonchi bilaterally. CHEST: Respiratory rate was 24 breaths per minute. Oxygen saturation was 91% on room air. There is recorded, pulse oximetry of only 68% on room air at 11:11 a.m. today. I am not sure of these circumstances. The [facility] already and the nurse coming on does not know the patient. ABDOMEN: Soft. It is mildly obese. EXTREMITIES: Showed no change in the chronic venous insufficiency with skin color changes. LABORATORY DATA: White count today was increased to 15.27. Yesterday was 4.76. This may be related to steroids. Hemoglobin today 14. Platelets are 160,000. Sodium is 137, potassium 5.5, chloride 98, bicarbonate 32. The BUN was 42 with a creatinine of 1.4. Yesterday's BUN was 19 with a creatinine of 1.1. IMPRESSIONS: 1. Right lower lobe infiltrate -- suspicious for pneumonia. 2. Respiratory failure -- acute on chronic with hypoxia and hypercarbia. 3. Emphysema. 4. Obstructive sleep apnea -- intolerant of CPAP and BiPAP. 5. Congestive heart failure. COMMENTS AND RECOMMENDATIONS: The patient is on levofloxacin. As noted in original consultation, there is a past history of prolonged QT interval. I will defer to medicine as to whether to continue levofloxacin or changed to alternatives. The patient's BUN and creatinine are elevated. I believe the Lasix should be held. He may even need a short course of IV fluids. I would cut back the dose of the methylprednisolone. This may be contributing to the elevation of kidney function. He is currently on 60 mg IV q. 6 hours and I will reduce that to 40 mg IV q. 8 hours. I would suggest perhaps a physical therapy order to ambulate the patient with oxygen. This may help him get rid of a little frustration as he would like to walk more than what he is doing. I do not believe he is actually ready for discharge as yet. I called DR. Hernandez to discuss and left message on voice mail. SUNG
--- NOTE | 2016-10-09 17:40 | DIAGNOSTIC IMAGING REPORT ---
CHEST 2 VIEWS ROUTINE CLINICAL HISTORY: Hypoxia. History of COPD. COMPARISON STUDY: 10/07/2016 FINDINGS: The heart remains enlarged. There are bilateral interstitial pulmonary opacities similar to the preceding study. A recent CT scan favored these being inflammatory. There is underlying emphysema.[ There is also evidence for right posterior basilar atelectasis/consolidation. IMPRESSION: Cardiomegaly and mild bilateral interstitial opacities, similar to the preceding study. Emphysema. Electronically signed by: Juan Luis Aguilar M.D. 10/09/2016 5:38 PM Dictated Date/Time: 10/09/2016 5:36 PM
[2016-10-09] MEDS: SODIUM CHLORIDE 0.9% 1000ML 1,000 ML IV SCH (18:59)
[2016-10-09] MEDS: SIMVASTATIN 40 MG TAB PO SCH (21:53)
[2016-10-09] MEDS: METHYLPREDNISOLONE IV 40 MG in SYRINGE 0 ML IV SCH (21:55)
--- NOTE | 2016-10-09 23:33 | Progress Note ---
Subjective Date of Service: Oct 09, 2016. Subjective Pt evaluation today including: conversation w/ patient, physical exam, chart review, lab review, review of studies (cxr), review of inpatient medication list Pain: denies any chest pain, abd pain PO Intake: normal ("too good" he states) Voiding: no voiding problems overall his pulmonary symptoms are better cough, wheezing, dyspnea are all improved he is still requiring 5 liters of NC O2 Problem List Medical Problems: (1) Acute renal failure Status: Acute (2) CHF (congestive heart failure) Status: Acute (3) COPD (chronic obstructive pulmonary disease) Status: Acute (4) COPD exacerbation Status: Acute (5) Hypokalemia Status: Acute (6) Hypoxia Status: Acute (7) SOB (shortness of breath) Status: Acute Review of Systems Constitutional: No fever Respiratory: No dyspnea at rest Cardiac: No chest pain, No orthopnea Abdomen: No pain Objective Vital Signs Date Time Temp Pulse Resp B/P Pulse Ox O2 Delivery O2 Flow Rate FiO2 10/09/16 20:42 72 20 92 Nasal Cannula 4.0 10/09/16 20:01 36.6 55 16 141/74 90 4.5 10/09/16 16:00 36.3 66 18 138/68 90 Nasal Cannula 5.0 10/09/16 16:00 Nasal Cannula 5.0 10/09/16 15:21 72 24 91 Room Air 10/09/16 12:00 Nasal Cannula 4.0 10/09/16 11:18 36.3 81 18 162/80 92 Nasal Cannula 4.0 10/09/16 11:11 72 24 68 Room Air 10/09/16 08:22 36.2 56 20 157/77 92 Nasal Cannula 2.0 10/09/16 08:00 Nasal Cannula 5.0 10/09/16 07:55 55 18 91 Nasal Cannula 5.0 10/09/16 04:40 35.8 70 20 148/72 90 Nasal Cannula 5.0 10/09/16 04:10 Nasal Cannula 5.0 10/09/16 00:25 36.3 61 23 132/69 92 Nasal Cannula 5.0 10/09/16 00:15 Nasal Cannula 5.0 Physical Exam General Appearance: no apparent distress ENT: + pertinent finding (MM are dry) Neck: no JVD Respiratory/Chest: no respiratory distress, no accessory muscle use, + rales ( fine, bases), + wheezing (extensive b/l) Cardiovascular: regular rate, rhythm, no gallop, no murmur Abdomen: normal bowel sounds, non tender, soft, no organomegaly Extremities: no pedal edema Neurologic/Psychiatric: alert, oriented x 3 Laboratory Results Last 24 Hours Test 10/09/16 07:09 White Blood Count 15.27 K/uL Red Blood Count 4.01 M/uL Hemoglobin 14.0 g/dL Hematocrit 44.6 % Mean Corpuscular Volume 111.2 fL Mean Corpuscular Hemoglobin 34.9 pg Mean Corpuscular Hemoglobin Concent 31.4 g/dl RDW Standard Deviation 57.5 fL RDW Coefficient of Variation 14.1 % Platelet Count 160 K/uL Mean Platelet Volume 10.1 fL Sodium Level 137 mmol/L Potassium Level 5.5 mmol/L Chloride Level 98 mmol/L Carbon Dioxide Level 32 mmol/L Anion Gap 7.0 mmol/L Blood Urea Nitrogen 42 mg/dl Creatinine 1.40 mg/dl Est Creatinine Clear Calc Drug Dose 76.3 ml/min Estimated GFR () 62.0 Estimated GFR (Non- 53.5 BUN/Creatinine Ratio 29.7 Random Glucose 145 mg/dl Calcium Level 8.7 mg/dl Assessment and Plan 61yo male with: 1. acute/chronic hypoxic/hypercarbic respiratory failure - slowly improving. Acute component 2nd to COPD exacerbation +/- pneumonia. 2. COPD exacerbation - appreciate pulmonary consultation & recommendations. Cont IV steroids, nebs, incentive micah/pulm toilet, etc. Defer steroid management to pulmonary. 3. ?acute/chronic diastolic CHF - chest x-ray obtained today; some suggestion of pulmonary vascular congestion, but clinically patient appears volume depleted. 4. acute kidney injury - hydrate with NS, and repeat BMP am. 5. hyperkalemia - 2nd to #4 - kayexalate 30gm x 1. Repeat BMP am. 6. HTN - controlled; cont metoprolol. 7. a. fib - cont anticoagulation, amiodarone, and BB. 8. RLL pneumonia - continue levaquin. day #3 of abx. 9. macrocytic anemia - check b12/folate in am. Previous b12 level earlier this year was low. 10. alcohol dependence - no signs/symptoms of etoh withdrawal. Cont ativan prn , thiamine, etc. 11. GERD - PPI. progressing Continued [facility] stay due to: multiple IV medications needed Discharge planning: home with home health
[2016-10-10] VITALS (13 sets, daily range): BP systolic 141–169; BP diastolic 71–78; PULSE 53–61; TEMP 36.2–37.1; O2SAT 90–100
[2016-10-10] MEDS: ACETAMINOPHEN 325 MG TAB PO PRN (03:56)
[2016-10-10] MEDS: LORAZEPAM 2 MG/ML 1 ML VIAL IV PRN (03:56)
[2016-10-10] MEDS: SODIUM CHLORIDE 0.9% 1000ML 1,000 ML IV SCH ×2 (05:22→16:01)
[2016-10-10] MEDS: METHYLPREDNISOLONE IV 40 MG in SYRINGE 0 ML IV SCH (05:22)
[2016-10-10 07:41] LABS: BUN/CREATININE RATIO 34.3 (10-20); CALCIUM 8.5 mg/dl (8.5-10.1); CREATININE 1.5 mg/dl (0.60-1.40)
[2016-10-10] MEDS: ALBUT/IPRATROP 3MG/0.5MG NEB 3 ML VIAL INH SCH ×4 (08:04→19:23)
[2016-10-10] MEDS: METOPROLOL TARTRATE 50 MG TAB PO SCH ×3 (09:00→20:57)
[2016-10-10] MEDS: AMIODARONE 200 MG TAB PO SCH ×2 (09:19→20:49)
[2016-10-10] MEDS: FLUTICASONE/SALMETEROL (ADVAIR) 500/50 INH 14 PUFF INH SCH ×2 (09:19→20:47)
[2016-10-10] MEDS: APIXABAN 2.5 MG TAB PO SCH ×2 (09:20→20:50)
[2016-10-10] MEDS: PANTOprazole SOD 40 MG TAB PO SCH ×2 (09:20→20:50)
[2016-10-10] MEDS: CYANOCOBALAMIN 500 MCG TAB (VIT B-12) PO SCH (09:21)
--- NOTE | 2016-10-10 10:46 | PULMONARY PROGRESS NOTE ---
DATE: 10/10/2016 TIME: 10:00 a.m. SUBJECTIVE: The patient states he feels better today. He did walk with physical therapy this morning and he felt good about that. He states he had no difficulty ambulating around the hester x2. He feels that his cough is less and his breathing is easier. He does not feel as tight as he did. His spirits were much better today. OBJECTIVE: GENERAL: The patient was sleeping when I first came into the room. He was having obvious sleep apnea as I was watching him. I had to shake him a couple of times to awaken him. From this perspective, he feels like he was sleeping very well. He is afebrile. NECK: The patient has a large neck. No lymph nodes were palpable. VITAL SIGNS: Heart rate was 58 per minute. Blood pressure 141/73. Respiratory rate 22 breaths per minute. Oxygen saturation was 91% on 4 liters. LUNGS: Auscultation revealed [id number] wheezing. His aeration was much better than it had been previously. ABDOMEN: Obese. It was soft and nontender. EXTREMITIES: Show color changes compatible with chronic venous insufficiency. Varicose veins were noted. He is not edematous. Chest x-ray done yesterday was unchanged. This is not surprising in that the CAT scan of the chest was actually much more abnormal than what was seen on the chest x-ray itself. It is difficult to evaluate the right basilar infiltrates from a plain chest x-ray perspective. LABORATORY DATA: The BUN today was 51 and previously was 42 yesterday. On admission, it was 19. The creatinine today is 1.5 that had been 1.4 yesterday and 1.1 on admission. IMPRESSIONS: 1. Right lower lobe pneumonia. 2. Respiratory failure -- acute on chronic with hypoxia and hypercarbia -- improved. 3. Emphysema. 4. Obstructive sleep apnea. 5. Congestive heart failure. 6. Renal insufficiency. COMMENTS AND RECOMMENDATIONS: His respiratory status today seems better. I believe we can further taper the steroids and discovery manager to oral prednisone. The patient's renal function has been decreasing. This is likely multifactorial. The steroids could contribute to this, but also the levofloxacin could contribute. He is getting some IV fluids, which I agree with. The levofloxacin dose may need to be adjusted for the renal changes. I would continue to increase the patient's activity levels.
[2016-10-10] MEDS: CEROVITE ADV FORMULA TAB PO SCH (11:30)
[2016-10-10] MEDS: THIAMINE HCL 100 MG TAB PO SCH ×2 (11:31→20:48)
[2016-10-10] MEDS ORDERED: LEVOFLOXACIN 750 MG TAB PO ONE (15:00)
[2016-10-10 17:28] LABS: BUN/CREATININE RATIO 40.8 (10-20); CALCIUM 8.6 mg/dl (8.5-10.1); CREATININE 1.3 mg/dl (0.60-1.40); POTASSIUM 4.9 mmol/L (3.5-5.1)
--- NOTE | 2016-10-10 20:15 | Progress Note ---
Subjective Date of Service: Oct 10, 2016. Subjective Pt evaluation today including: conversation w/ patient, physical exam, chart review, lab review, conversation w/ account consultant (pulmonary - Dr. Ruiz) Pain: denies PO Intake: normal Voiding: no voiding problems patient agitated during my visit - he feels he is not getting "all the right information" he also states he is anxious and wants to go home refused the folic acid earlier today and stated to me "I don't need that" he feels that his breathing is improved with less cough and dyspnea Problem List Medical Problems: (1) Acute renal failure Status: Acute (2) CHF (congestive heart failure) Status: Acute (3) COPD (chronic obstructive pulmonary disease) Status: Acute (4) COPD exacerbation Status: Acute (5) Hypokalemia Status: Acute (6) Hypoxia Status: Acute (7) SOB (shortness of breath) Status: Acute Review of Systems Constitutional: No fever Respiratory: + cough, + dyspnea on exertion, + shortness of breath, + sputum, + wheezing Cardiac: No chest pain, No orthopnea Abdomen: No pain Objective Vital Signs Date Time Temp Pulse Resp B/P Pulse Ox O2 Delivery O2 Flow Rate FiO2 10/10/16 19:52 36.2 54 20 162/74 100 Nasal Cannula 4.5 10/10/16 19:26 54 20 92 Nasal Cannula 5.0 10/10/16 16:23 56 20 91 Nasal Cannula 4.0 10/10/16 16:00 92 Nasal Cannula 5.0 10/10/16 15:12 36.4 61 20 145/74 92 Nasal Cannula 5.0 10/10/16 12:00 Nasal Cannula 5.0 10/10/16 11:48 36.4 58 20 157/78 100 Nasal Cannula 5.0 10/10/16 11:23 56 20 93 Nasal Cannula 4.0 10/10/16 08:04 58 22 91 Nasal Cannula 4.0 10/10/16 08:00 Nasal Cannula 5.0 10/10/16 07:28 36.4 53 20 141/73 90 Nasal Cannula 5.0 10/10/16 04:19 36.6 60 20 155/71 91 Nasal Cannula 5.0 10/10/16 04:00 Nasal Cannula 5.0 10/10/16 00:20 37.1 61 20 169/75 91 Nasal Cannula 5.0 10/10/16 00:00 Nasal Cannula 5.0 10/09/16 20:42 72 20 92 Nasal Cannula 4.0 Physical Exam General Appearance: no apparent distress ENT: pharynx normal Neck: + JVD Respiratory/Chest: no respiratory distress, no accessory muscle use, + crackles (right base), + wheezing (b/l but improved from yesterday and airation also improved) Cardiovascular: regular rate, rhythm, no gallop, no murmur Abdomen: normal bowel sounds, non tender, soft, no organomegaly Extremities: no pedal edema Neurologic/Psychiatric: alert, oriented x 3, + pertinent finding (no signs of etoh withdrawal ) Laboratory Results Last 24 Hours Test 10/10/16 06:46 10/10/16 16:50 Sodium Level 139 mmol/L 142 mmol/L Potassium Level 5.0 mmol/L 4.9 mmol/L Chloride Level 99 mmol/L 100 mmol/L Carbon Dioxide Level 34 mmol/L 36 mmol/L Anion Gap 6.0 mmol/L 6.0 mmol/L Blood Urea Nitrogen 51 mg/dl 53 mg/dl Creatinine 1.50 mg/dl 1.30 mg/dl Est Creatinine Clear Calc Drug Dose 71.7 ml/min 82.8 ml/min Estimated GFR () 57.0 67.8 Estimated GFR (Non- 49.2 58.5 BUN/Creatinine Ratio 34.3 40.8 Random Glucose 129 mg/dl 127 mg/dl Calcium Level 8.5 mg/dl 8.6 mg/dl Vitamin B12 Level 1110 pg/mL Folate 6.34 ng/mL Assessment and Plan 61yo male with: 1. acute/chronic hypoxic/hypercarbic respiratory failure - improved once again. Acute component 2nd to COPD exacerbation + RLL pneumonia. 2. COPD exacerbation - appreciate pulmonary consultation & recommendations. Cont steroids - to be converted to oral today; also cont nebs, incentive micah/ pulm toilet, etc. 3. ?acute/chronic diastolic CHF - not suggested. Hold lasix due to DOMINIQUE. 4. acute kidney injury - slightly worse today; hydrate, and repeat BMP this afternoon and again tomorrow am. 5. hyperkalemia - resolved. 6. HTN - controlled; cont metoprolol. 7. a. fib - cont anticoagulation, amiodarone, and BB. 8. RLL pneumonia - community acquired; continue levaquin. day #4 of abx. 9. macrocytic anemia - b12 is normal, folic acid is low-normal; supplement the latter. 10. alcohol dependence - no signs/symptoms of etoh withdrawal. Cont ativan prn , thiamine, etc. 11. GERD - PPI. slowly progressing but hopefully d/c tomorrow? Continued [facility] stay due to: multiple IV medications needed Discharge planning: home with home health
[2016-10-10] MEDS: SIMVASTATIN 40 MG TAB PO SCH (20:48)
[2016-10-10] MEDS: LORAZEPAM INJ 1 MG in SYRINGE 0.5 ML IV PRN (22:15)
[2016-10-11] VITALS (10 sets, daily range): BP systolic 143–173; BP diastolic 60–81; PULSE 55–77; TEMP 36.4–36.5; O2SAT 71–95
[2016-10-11] MEDS: SODIUM CHLORIDE 0.9% 1000ML 1,000 ML IV SCH (00:41)
[2016-10-11] MEDS: ZOLPIDEM TARTRATE 5 MG TAB PO PRN ×2 (00:41→22:44)
[2016-10-11] MEDS: ACETAMINOPHEN 325 MG TAB PO PRN ×3 (00:41→20:51)
[2016-10-11 07:01] LABS: MEAN CELL VOLUME 113.1 fL (80-100); MEAN CORPUSCULAR HEMOGLOBIN 34.4 pg (25-34); MEAN CORPUSCULAR HGB CONC 30.4 g/dl (32-36); MEAN PLATELET VOLUME 10.1 fL (7.4-10.4); PLATELET COUNT 143 K/uL (130-400); RED BLOOD COUNT 3.98 M/uL (4.7-6.1); WHITE BLOOD COUNT 13.44 K/uL (4.8-10.8)
[2016-10-11 07:27] LABS: BUN/CREATININE RATIO 37.2 (10-20); CALCIUM 8.7 mg/dl (8.5-10.1); CREATININE 1.4 mg/dl (0.60-1.40); POTASSIUM 5.3 mmol/L (3.5-5.1)
[2016-10-11] MEDS: ALBUT/IPRATROP 3MG/0.5MG NEB 3 ML VIAL INH SCH ×4 (07:47→19:11)
[2016-10-11] MEDS: AMIODARONE 200 MG TAB PO SCH ×2 (09:37→20:26)
[2016-10-11] MEDS: FLUTICASONE/SALMETEROL (ADVAIR) 500/50 INH 14 PUFF INH SCH ×2 (09:37→20:25)
[2016-10-11] MEDS: APIXABAN 2.5 MG TAB PO SCH ×2 (09:38→20:27)
[2016-10-11] MEDS: METOPROLOL TARTRATE 50 MG TAB PO SCH ×3 (09:39→20:32)
[2016-10-11] MEDS: PANTOprazole SOD 40 MG TAB PO SCH ×2 (09:40→20:27)
[2016-10-11] MEDS: CEROVITE ADV FORMULA TAB PO SCH (09:40)
[2016-10-11] MEDS: THIAMINE HCL 100 MG TAB PO SCH ×2 (09:40→20:30)
[2016-10-11] MEDS: CYANOCOBALAMIN 500 MCG TAB (VIT B-12) PO SCH (09:41)
[2016-10-11] MEDS ORDERED: FUROSEMIDE INJ 40 MG in SYRINGE 0 ML IV ONE (11:15)
[2016-10-11] MEDS: LEVOFLOXACIN 750 MG TAB PO SCH (11:17)
--- NOTE | 2016-10-11 11:18 | PULMONARY PROGRESS NOTE ---
DATE: 10/11/2016 DATE: 10/11/2016. TIME: 10:50 a.m. SUBJECTIVE: The patient states he had a reasonably good night. He is not complaining of significant shortness of breath. He still has some cough. He is able to cough up phlegm more so when he is up walking around or going to the bathroom. He denies chest pains. The patient has been gaining weight. In comparison with 4 days ago he has put on 4 kilograms of weight. OBJECTIVE: GENERAL: The patient appears flushed. He has not had any fevers. He appeared comfortable at rest. He is able to lie flat without difficulty. EARS, NOSE, THROAT EXAMINATION: Unchanged. HEART: Heart rate is 60 beats per minute. The rhythm is regular. LUNGS: Lung wayne revealed mild rales at both bases with mild wheeze on end expiration. Saturation was 89% on 5 liters. He is still requiring a fair amount of oxygen. Blood pressure this morning 173/75. ABDOMEN: Obese. Good bowel sounds were heard. There was no tenderness to palpation. EXTREMITIES: Revealed +1 edema. LABORATORY DATA: CBC today shows a white count of 13.44. Hemoglobin 13.7. Platelets 143,000. Electrolytes show sodium 142, potassium 5.3, chloride 102, bicarbonate 34. The BUN is 52 with creatinine 1.4. His elevation of the renal numbers persist despite having hydration. IMPRESSIONS: 1. Right lower lobe pneumonia -- clinically improved. 2. Respiratory failure -- acute on chronic with hypoxia and hypercarbia. 3. Emphysema. 4. Obstructive sleep apnea -- intolerant of medicines. 5. Questionable congestive heart failure. 6. Renal insufficiency. COMMENTS AND RECOMMENDATIONS: The patient seems to be clinically improved. This is at least from a respiratory perspective. However, he remains requiring up to 5 liters of oxygen. His kidney function is still abnormal. Potassium is still abnormal. This is all despite hydration. Case was discussed with Dr. Kraft. The plan would be to give him a trial of 1 dose of Lasix and see how well he diureses over the next several hours. The steroids were changed over to oral today. They can be tapered as an outpatient. He would need a total of 7 days of the levofloxacin. Consideration may be given to discharge in the near future.
--- NOTE | 2016-10-11 17:10 | Progress Note ---
Subjective Date of Service: Oct 11, 2016. Subjective Pt evaluation today including: conversation w/ patient, physical exam, chart review, lab review, conversation w/ dairy feed sales consultant (pulmonary Dr. Ruiz), review of inpatient medication list Pain: denies cp, abd pain PO Intake: normal Voiding: no voiding problems Patient reports ongoing cough and dyspnea. When asked if they are improved he states "I think so." Denied orthopnea. He continues to be frustrated about being hospitalized. Problem List Medical Problems: (1) Acute renal failure Status: Acute (2) CHF (congestive heart failure) Status: Acute (3) COPD (chronic obstructive pulmonary disease) Status: Acute (4) COPD exacerbation Status: Acute (5) Hypokalemia Status: Acute (6) Hypoxia Status: Acute (7) SOB (shortness of breath) Status: Acute Review of Systems Constitutional: No chills, No fever Respiratory: + cough, + dyspnea on exertion Cardiac: No PND, No chest pain, No edema, No orthopnea Abdomen: No pain Objective Vital Signs Date Time Temp Pulse Resp B/P Pulse Ox O2 Delivery O2 Flow Rate FiO2 10/11/16 16:30 36.5 64 20 143/60 90 Nasal Cannula 4.0 10/11/16 16:00 Nasal Cannula 4.0 10/11/16 16:00 63 20 71 Room Air 10/11/16 12:13 55 20 95 Nasal Cannula 5.0 10/11/16 12:00 36.5 59 22 159/65 92 Nasal Cannula 5.0 10/11/16 12:00 Nasal Cannula 4.5 10/11/16 08:00 Nasal Cannula 4.5 10/11/16 07:47 62 20 89 Nasal Cannula 5.0 10/11/16 07:46 36.4 61 20 173/75 91 Nasal Cannula 5.0 10/11/16 04:00 Nasal Cannula 4.5 10/11/16 01:34 36.4 65 22 154/68 95 Nasal Cannula 5.0 10/11/16 00:00 Nasal Cannula 4.5 10/10/16 20:54 60 10/10/16 20:00 93 Nasal Cannula 4.5 10/10/16 19:52 36.2 54 20 162/74 100 Nasal Cannula 4.5 10/10/16 19:26 54 20 92 Nasal Cannula 5.0 Physical Exam General Appearance: no apparent distress ENT: pharynx normal Neck: + JVD Respiratory/Chest: no respiratory distress, no accessory muscle use, + crackles (both bases), + wheezing (b/l) Cardiovascular: regular rate, rhythm, no gallop, no murmur Abdomen: normal bowel sounds, non tender, soft, no organomegaly Extremities: + pedal edema, + pertinent finding (stasis changes b/l legs) Neurologic/Psychiatric: alert, oriented x 3, + pertinent finding (no tremors) Laboratory Results Last 24 Hours Test 10/11/16 06:18 White Blood Count 13.44 K/uL Red Blood Count 3.98 M/uL Hemoglobin 13.7 g/dL Hematocrit 45.0 % Mean Corpuscular Volume 113.1 fL Mean Corpuscular Hemoglobin 34.4 pg Mean Corpuscular Hemoglobin Concent 30.4 g/dl RDW Standard Deviation 58.6 fL RDW Coefficient of Variation 14.1 % Platelet Count 143 K/uL Mean Platelet Volume 10.1 fL Sodium Level 142 mmol/L Potassium Level 5.3 mmol/L Chloride Level 102 mmol/L Carbon Dioxide Level 34 mmol/L Anion Gap 6.0 mmol/L Blood Urea Nitrogen 52 mg/dl Creatinine 1.40 mg/dl Est Creatinine Clear Calc Drug Dose 77.6 ml/min Estimated GFR () 62.0 Estimated GFR (Non- 53.5 BUN/Creatinine Ratio 37.2 Random Glucose 125 mg/dl Calcium Level 8.7 mg/dl Assessment and Plan 61yo male with: 1. acute/chronic hypoxic/hypercarbic respiratory failure - Acute component 2nd to COPD exacerbation + RLL pneumonia. No change today / no significant improvement. Remains on 5 liters [place] O2 (uses 4 at home). 2. COPD exacerbation - appreciate pulmonary consultation & recommendations. Cont steroids, nebs, incentive micah/pulm toilet, etc. Defer steroid taper to Dr. Ruiz. Day #5 of antibiotics. 3. acute/chronic diastolic CHF - volume status has been difficult to determine. Initially it was thought he was volume depleted. Despite hydration over the last 2 days his BUN and Cr have not changed. Weight is now 273 pounds, up from 259 pounds earlier this stay (he was 258 # in the office in early September). Stop IVF. Lasix 40mg IV x 1 and follow clinical response. 4. acute kidney injury - despite hydration it has not improved. Potassium high again today. See #3 above. Lasix x 1 and reassess. Repeat BMP tonight. 5. hyperkalemia - recurrent. See above. 6. HTN - controlled; cont metoprolol. 7. a. fib - cont anticoagulation, amiodarone, and BB. 8. RLL pneumonia - community acquired; continue levaquin. day #5 of abx. 9. macrocytic anemia - b12 is normal, folic acid is low-normal; folic acid supplement ordered. 10. alcohol dependence - he has been agitated last 24 hours. Due to mild etoh withdrawal? Cont ativan prn, thiamine, etc. 11. GERD - PPI. update family when able Continued [facility] stay due to: multiple IV medications needed Discharge planning: home with home health
[2016-10-11] MEDS: SIMVASTATIN 40 MG TAB PO SCH (20:28)
[2016-10-11] MEDS: LORAZEPAM INJ 1 MG in SYRINGE 0.5 ML IV PRN (20:52)
[2016-10-12] VITALS (8 sets, daily range): BP systolic 151–160; BP diastolic 75–82; PULSE 52–61; TEMP 36.3–36.4; O2SAT 83–94
[2016-10-12 07:33] LABS: BUN/CREATININE RATIO 34.9 (10-20); CALCIUM 8.4 mg/dl (8.5-10.1); CREATININE 1.4 mg/dl (0.60-1.40); MAGNESIUM 2.5 mg/dl (1.8-2.4); POTASSIUM 4.9 mmol/L (3.5-5.1)
[2016-10-12] MEDS: ALBUT/IPRATROP 3MG/0.5MG NEB 3 ML VIAL INH SCH ×3 (07:44→15:18)
[2016-10-12] MEDS: METOPROLOL TARTRATE 50 MG TAB PO SCH ×2 (09:00→13:53)
[2016-10-12] MEDS: FLUTICASONE/SALMETEROL (ADVAIR) 500/50 INH 14 PUFF INH SCH (09:05)
[2016-10-12] MEDS: APIXABAN 2.5 MG TAB PO SCH (09:07)
[2016-10-12] MEDS: PANTOprazole SOD 40 MG TAB PO SCH (09:07)
[2016-10-12] MEDS: AMIODARONE 200 MG TAB PO SCH (09:08)
[2016-10-12] MEDS: CYANOCOBALAMIN 500 MCG TAB (VIT B-12) PO SCH (09:08)
[2016-10-12] MEDS: CEROVITE ADV FORMULA TAB PO SCH (09:08)
[2016-10-12] MEDS: THIAMINE HCL 100 MG TAB PO SCH (09:09)
--- NOTE | 2016-10-12 10:21 | DIAGNOSTIC IMAGING REPORT ---
CHEST 2 VIEWS ROUTINE HISTORY: Follow up airspace opacities. COMPARISON: Chest 10/09/2016. FINDINGS: The heart remains enlarged. No pneumothorax. No pleural effusions. Diffuse interstitial thickening and patchy bibasilar airspace opacities persist. IMPRESSION: No change in the patchy bibasilar airspace opacities with likely represents a pneumonia. One month chest x-ray follow up be performed to ensure complete resolution. Electronically signed by: Skyler Lamar M.D. 10/12/2016 10:19 AM Dictated Date/Time: 10/12/2016 10:16 AM
[2016-10-12] MEDS: LEVOFLOXACIN 750 MG TAB PO SCH (10:54)
[2016-10-12] MEDS: NYSTATIN SUSP 500,000 U/5 ML UDC PO SCH ×2 (13:52→16:43)
--- NOTE | 2016-10-12 14:58 | PULMONARY PROGRESS NOTE ---
DATE: 10/12/2016 TIME: 1:50 p.m. SUBJECTIVE: The patient is feeling better. He has ambulated in the [place]ster today wearing oxygen and did well without any significant shortness of breath. He feels that his breathing is better. Yesterday, he was given some IV Lasix. He did not notice any dramatic increase in his urination. Unfortunately, his urine output was not kept for record yesterday. Generally overall he is feeling much better and is anxious for discharge. OBJECTIVE: GENERAL: The patient appears comfortable at rest. He was in no distress. VITAL SIGNS: Temperature is 36.3. ENT: Unchanged. HEART: Heart rate is 54 per minute. The rhythm was regular. Blood pressure 151/82. LUNGS: Respiratory rate 20 breaths per minute and not labored. The breath sounds were mildly diminished. Mild wheezing was heard on expiration. Oxygen saturation on 4 liters was 92% at the time of my exam. His saturation did drop somewhat when walking apparently. He does have oxygen at home. He has a nebulizer at home, but he does not like to use it. However, he likes the mask for the neb treatments rather than a pipe. He asked where he could get one. I believe he could have the one we are using here in the hospital and he should take at home with him. ABDOMEN: Remains obese. It was soft and nontender. EXTREMITIES: Continue to reveal +2 edema. His weight was recorded as 125 kilograms which could represent an increase of 0.9 kilograms. This would be despite the Lasix. IMPRESSION: 1. Right lower lobe pneumonia. 2. Respiratory failure -- acute on chronic with hypoxia and hypercarbia. 3. Emphysema. 4. Obstructive sleep apnea -- untreated and intolerant of CPAP and BiPAP. 5. Congestive heart failure. 6. Renal insufficiency. COMMENTS: The patient is clinically improved. He persists with weight gain, but it is not clear the exact source. While he is edematous, it does not seem worse. Despite having the Lasix his BUN and creatinine were relatively unchanged. I do not have objection to discharge at the present time. He may need the levofloxacin for only another day or so. I believe the prednisone could be started at 50 mg daily, and decreased gradually over the course of a couple of weeks. The patient should if possible decrease his alcohol intake. Watching his salt intake would obviously be important as well. His chest x-ray from today continues to show some patchy airspace opacities and thus a followup in several weeks would be advised. The patient does follow up with Dr. Giles and he likely should see him in a few weeks. He obviously should follow up with Dr. Azevedo soon.
[2016-10-12] MEDS ORDERED: NYSS5 PO (16:11)
[2016-10-12] MEDS ORDERED: IPRASOL4 INH (16:11)
[2016-10-12] MEDS ORDERED: FLV1 PO (16:11)
[2016-10-12] MEDS ORDERED: LVQ750 PO (16:11)
[2016-10-12] MEDS ORDERED: PRED10TA PO (16:11)
[2016-10-12] MEDS ORDERED: NEBMAC (16:11)
--- NOTE | 2016-10-12 16:24 | Discharge Instructions ---
Discharge Instructions Admission Reason for Admission: COPD Exacerbation Discharge Discharge Diagnosis / Problem: 1. COPD exacerbation 2. Right-sided Pneumonia Discharge Goals Goal(s): Learn about illness, Diagnostic testing, Therapeutic intervention Activity Recommendations Activity Limitations: as noted below Exercise/Sports Limitations: gradually increase as tolerated (over the next 1- 2 week) May Resume Sexual Activity: after follow-up appointment Recommend staying out of work for about 1 week. Instructions / Follow-Up Instructions / Follow-Up From Dr. Kraft - 1. Start your antibiotic (levaquin, also known as levofloxacin) TOMORROW on 10/13 and take for 4 days. 2. Start your prednisone TOMORROW on 10/13/16 and take a "taper" as directed. Take all prednisone with food. 3. HOLD YOUR POTASSIUM UNTIL DR. SANTACRUZ TELLS YOU TO RESUME IT. 4. SKIP YOUR LASIX TODAY but resume lasix 20mg once daily on 10/13/16. 5. A prescription for a nebulizer machine has been provided for you. You can purchase this from a medical supply store such as [facility], located on [facility] near the [facility]. 6. The medication for the neb machine is called "duonebs." You can use this 4 times a day (every 6 hours). Some people use is scheduled, and some simply use it as needed. I would use it scheduled for the next few days as you continue your recovery. The duoneb medication is the same medication as "combivent inhaler" and thus do not use both products at the same time. 7. Limit your fluids to 1500cc/day until Dr. Santacruz tells you otherwise. 8. Check your weight EVERY DAY, preferably first thing in the morning upon awakening. Write these weights down and show them to Dr. Santacruz. 9. Please call Dr. Santacruz's office on 10/13/16. Ideally you should be seen by him on 10/14/16. You will need repeat lab studies either tomorrow or Thursday. 10. Continue your home oxygen at 4 liters as previous. 11. Lastly, see Dr. Giles within the next 1-2 weeks for your lungs. Other instructions - Call 911 and go to the Emergency Room if: * You have tightness or pain in your chest that does not go away with rest or Nitroglycerin * You are very short of breath even with rest Call your doctor if any of the following symptoms or problems start or get worse: * Shortness of breath or difficulty breathing * Wake up at night short of breath * Chest pain * Cough * Swelling of your hands, fee, or legs * More fatigued or tired with your normal activity * Palpitations - sudden fast heart beats WEIGHT * Weigh yourself every morning after using the bathroom. * Use the same scale. * Wear the same amount of clothing. * Write your weight down on your chart. * Call your doctor if you gain more than 2-3 pounds in 1-2 days.* MEDICATIONS * Use this discharge instruction sheet for instructions. * Take your medications at the time your doctor ordered. * Do not skip a dose of your medicines. * If you miss a dose of medicine, take as soon as possible, but DO NOT DOUBLE A DOSE. * Read your medicine information when you get home. * Know all of the side effects of your medicine. * Call your doctor's office if you have any side effects. * Be sure all of your doctors know what medicine and herbs you take (including cold, flu, and herbal medicine). * Pain Medicine: If you do not get relief from your pain, please call your doctor for help. Take the following with you to your follow-up doctor appointments: * Weight Chart * Medication List * List of questions Do not drink excessive alcohol, beer or wine. Current Hospital Diet Patient's current hospital diet: AHA Diet (Heart Healthy) Discharge Diet Recommended Diet: Low Sodium Diet (2gm Na) Fluid Restriction: 1500 ml (6 cups) Procedures Procedures Performed: chest x-rays with emphysema, possible right-sided pneumonia CAT scan of the lungs with emphysema and probable Right lower lobe pneumonia Pending Studies Studies pending at discharge: no Laboratory Results Lipid Panel Test 09/10/16 09:12 Range/Units Triglycerides Level 88 0-150 mg/dl Cholesterol Level 131 0-200 mg/dl HDL Cholesterol 73 mg/dl Cholesterol/HDL Ratio 1.8 LDL Cholesterol, Calculated 40 mg/dl Medical Emergencies . Who to Call and When: Medical Emergencies: If at any time you feel your situation is an emergency, please call 911 immediately. . Non-Emergent Contact Non-Emergency issues call your: Primary Care Provider, Fire Technician Call Non-Emergent contact if: temperature is above 100.5, you have any medication questions . . "Provider Documentation" section prepared by Gian Kraft. VTE Core Measure Inpt VTE Proph given/why not?: Other Anticoagulation
--- NOTE | 2016-10-13 06:32 | Discharge Summary ---
Discharge Summary Admission Date: Oct 07, 2016 at 15:24 Discharge Date: Oct 12, 2016 Discharge Disposition: Home Principal Diagnosis: acute/chronic hypercarbic & hypoxic respiratory failure Problems/Secondary Diagnoses: 1. COPD exacerbation 2. suspected RLL pneumonia 3. acute kidney injury - 2nd to IV contrast ? 4. chronic diastolic CHF 5. alcohol dependence 6. low-normal folate level 7. atrial fibrillation on chronic anticoagulation 8. MARK - untreated 9. hyperkalemia - resolved 10. former tobacco dependence 11. probable thrush Immunizations: Have You Had Influenza Vaccine: Yes History of Tetanus Vaccine?: Yes History of Pneumococcal: Yes History of Hepatitis B Vaccine: No Procedures: CTA chest: IMPRESSION: 1. No evidence for pulmonary embolus. 2. Patchy densities within the base of the right lower lobe and tree-in-bud nodular opacities within the bilateral lower lobes. This likely represents a pneumonia/infectious bronchiolitis. This could be due to prior aspiration. 3. Emphysema. Consultations: 1. pulmonary - Ok Ruiz DO 2. physical therapy Medication Reconciliation New Medications: Ipratropium-Albuterol (Duoneb) 3 Ml Nebu 1 TREATMENT INH Q6H, #1 BOX 1 Refill Nebulizer Machine (Home Use) (Nebulizer Machine (Home Use) ) Mis 1 EA N/A UD, #1 Folic Acid (Folic Acid) 1 Mg Tab 1 MG PO QAM, #30 TAB 0 Refills Levofloxacin (Levofloxacin) 750 Mg Tab 750 MG PO DAILY for 4 Days, #4 TAB 0 Refills start 10/13/16 Nystatin (Nystatin) 5 Ml Susp 5 ML PO QID for 7 Days, 0 Refills Prednisone Tab (Prednisone) 10 Mg Tab 10 MG PO DIRECTED, #35 TAB 0 Refills starting 10/13/16 - take 5 tabs days 1-3, 4 tabs days 4/5, 3 tabs days 6/7, 2 tabs days 8/9, 1 tab days /, then stop. Take all with food. Continued Medications: Amiodarone Hcl (Cordarone) 200 Mg Tab 200 MG PO BID Apixaban (Eliquis) 5 Mg Tab 5 MG PO BID Cyanocobalamin (B-12) 1,000 Mcg Cap 1000 MCG PO DAILY, #30 5 Refills Fluticasone Prop/Salmeterol (Advair Diskus 500/50 60 Dose) 1 Ea Aerp 1 PUFF INH BID Furosemide (Lasix) 20 Mg Tab 20 MG PO DAILY, TAB Ipratropium-Albuterol (Combivent Respimat) 1 Aer Aer 1 PUFFS INH QID Metoprolol Tartrate (Lopressor) (Lopressor) 50 Mg Tab 50 MG PO TID Omeprazole (Prilosec) 20 Mg Cap 20 MG PO BID Simvastatin (Simvastatin) 40 Mg Tab 40 MG PO QPM Discontinued Medications: Potassium Chloride (Potassium Chloride ER) 20 Meq Tabcr 20 MEQ PO BID, #60 Referrals At Discharge Follow up Referrals: Physician Referral - Please Call For Appointment with Luis Azevedo M.D. Lead Refinery Supervisor Referral - Please Call For Appointment with Salty Giles D.O. Pulmonary Discharge Exam Physical Exam: General Appearance: no apparent distress ENT: + pharyngeal erythema (possible thrush) Neck: no JVD Respiratory/Chest: no respiratory distress, no accessory muscle use, + rales (right base), + wheezing (b/l) Cardiovascular: regular rate, rhythm, no gallop, no murmur, normal peripheral pulses Abdomen / GI: normal bowel sounds, non tender, soft, no organomegaly Extremities: + pedal edema (1+ b/l ) Neurologic/Psychiatric: alert, oriented x 3 Skin: + pertinent finding (stasis changes b/l legs ) Hospital Course HISTORY OF PRESENT ILLNESS: This is a 61yo male with chronic respiratory failure due to COPD on home O2 4 liters continuosly, chronic diastolic CHF, HTN and a. fib who presented with worsening SOB over the past week. He noted that over the past week any sort of physical activity made him very fatigued and SOB. He was unable to even walk from one room to another in his house without this shortness of breath. He was concerned about this and arranged to see his PCP this afternoon however when he had a particularly bad episode of SOB he thought it was best to come to the ED instead. He noted that he typically has to use 4 L of O2 at home. In the ED he arrived with an O2 Sat of 77% and was requiring 6 L of oxygen to maintain above a 90% of O2 sat. He also noted that he has had a productive cough but denied any hemoptysis. Denied any fever, chest pain (only the sensation of tightness from not being able to take a deep breath), abdominal pain, numbness/ tingling of limbs. He has not had any recent illnesses but many of his coworkers had been ill. He had recently travelled to the [facility] and returned on Sep 21. He has a h/o of CHF and his last echo was done during the previous admission. He reported compliance with his medications. Denied any swelling of limbs or sudden increase in his weight. He takes Eliquis and Metoprolol for a. fib and is currently in NSR. He follows with Dr Monty Calderon. He mentioned that he does drink on a daily basis and has 4-5 beers daily with occasional drink of liquor. Quit smoking 3-4 years ago. HOSPITAL COURSE: The patient's acute/chronic hypoxic/hypercarbic respiratory failure was due to a combination of COPD exacerbation and RLL pneumonia as seen on CT chest. He was treated with IV steroids, antibiotics, O2, nebulizer treatments, and other supportive care. He was seen in consult by Dr. Ok Ruiz, pulmonary, who provided additional recommendations for his pulmonary issues. O2 sats with walking ( while using his oxygen) on day of discharge were upper 80s/90. He made gradual improvement in all respiratory symptoms and O2 was weaned to his baseline of 4 liters NC O2. He completed in total 6 days of IV levaquin while hospitalized. During his stay he suffered an acute kidney injury; baseline creatinine was 1.1 , climbing to a peak of 1.5 while here. Although not certain the DOMINIQUE could have been due to IV contrast that was used for his CTA chest. He received IV hydration in the setting of his DOMINIQUE. Creatinine at discharge improved to 1.4. In the midst of his DOMINIQUE the patient had considerable weight gain of at least 4- 5 kg. Despite such serial chest x-rays did not show pulmonary edema and he did not have CHF symptomatology. The patient was advised to stay 1 additional day to check the stability of his creatinine but was adamant about discharge to home. Recommend at discharge the following - 1. holding potassium supplementation 2. holding lasix on day of discharge 3. repeat BMP within 1-2 days of discharge for stability & recovery of the creatinine 4. four additional days of antibiotics for RLL pneumonia 5. prolonged steroid taper 6. avoidance of nephrotoxic medications (NSAIDs, etc) 7. course of folic acid for low-normal folate level 8. daily weights 9. follow-up with Dr. Azevedo within 48 hours 10. follow-up with his primary clinical nursing coordinator, Dr. Giles, within 1 week Total Time Spent: Greater than 30 minutes This includes examination of the patient, discharge planning, medication reconciliation, and communication with other providers. Discharge Instructions Please refer to the electronic Patient Visit Report (Discharge Instructions) for additional information. Follow-Up see Dr. Azevedo within 48 hours of discharge; care plan was discussed with Dr. Azevedo on 10/12/[address] Giles within 1 week of discharge Additional Copies To Salty Giles D.O. Pulmonary; Luis Azevedo M.D.
[2016-10-25] MEDS ORDERED: IPRA1AER2 INH (07:46)
[2016-10-25] MEDS ORDERED: FURO-85 PO (14:49)
[2016-10-25] MEDS ORDERED: OMEP20CA9 PO (15:28)
[2016-11-11] MEDS ORDERED: NTRSLP4 SL (11:13)
[2016-11-11] MEDS ORDERED: MCRK20 PO (11:13)
[2016-11-11] MEDS ORDERED: THM100 PO (11:13)
[2016-11-11] MEDS ORDERED: PRED10TA PO (11:13)
[2016-11-11] MEDS ORDERED: ZRX5 PO (11:13)
[2016-11-11] MEDS ORDERED: DMX250 PO (11:13)
[2016-11-20] MEDS ORDERED: OXGN (10:38)
[2016-11-20] MEDS ORDERED: FRS/40 PO (10:38)
[2016-11-20] MEDS ORDERED: SIMV40TA2 PO (10:38)
[2016-11-20] MEDS ORDERED: POTA1TAB97 PO (10:38)
[2016-11-20] MEDS ORDERED: LPR25 PO (10:38)
[2016-11-20] MEDS ORDERED: ACET-1325 PO (10:38)
== END 2016-10-12 17:33 | disposition home or self-care (01) | DRG 189 ==
LOC: ENRESERVDT → ENRESERVTM → C.EDB 13:16 → C.2T 15:24 → C.MED 10-08 11:09
PROVIDERS: ADMIT Hospitalist; ATTEND Internal Medicine
DX: J96.21 Acute and chronic respiratory failure with hypoxia (principal); J18.9 Pneumonia, unspecified organism; J44.1 Chronic obstructive pulmonary disease with (acute) exacerbation; J44.0 Chronic obstructive pulmonary disease with (acute) lower respiratory infection; I50.32 Chronic diastolic (congestive) heart failure; B37.0 Candidal stomatitis; N17.9 Acute kidney failure, unspecified; F10.239 Alcohol dependence with withdrawal, unspecified; T50.8X5A Adverse effect of diagnostic agents, initial encounter; Y92.239 Unspecified place in hospital as the place of occurrence of the external cause; J96.22 Acute and chronic respiratory failure with hypercapnia; E87.5 Hyperkalemia; T51.0X2A Toxic effect of ethanol, intentional self-harm, initial encounter; D69.59 Other secondary thrombocytopenia; R63.5 Abnormal weight gain; D53.9 Nutritional anemia, unspecified; I11.0 Hypertensive heart disease with heart failure; E78.5 Hyperlipidemia, unspecified; K21.9 Gastro-esophageal reflux disease without esophagitis; I48.91 Unspecified atrial fibrillation; G47.33 Obstructive sleep apnea (adult) (pediatric); I87.2 Venous insufficiency (chronic) (peripheral); Z68.34 Body mass index [BMI] 34.0-34.9, adult; Z99.81 Dependence on supplemental oxygen; Z87.891 Personal history of nicotine dependence; Z79.01 Long term (current) use of anticoagulants; Z79.51 Long term (current) use of inhaled steroids; Z79.899 Other long term (current) drug therapy

== ENCOUNTER → 2016-10-13 | Outpatient (CLI) | payer BC ==
[~2016-10-13] MED LIST changes: +ACET-1325 PO; +CYAN10005 PO; +DMX250 PO; +FOLI1TAB7 PO; +FRS/40 PO; +FURO-85 PO; +IPRA1AER2 INH; +IPRASOL4 INH; +LPR25 PO; +LVQ750 PO; -MCRK/20 PO; +MCRK20 PO; +NEBMAC; +NTRSLP4 SL; +NYSS5 PO; +OMEP20CA9 PO; +OXGN; +POTA1TAB97 PO; +PRED10TA PO; -RMR15 PO; +SIMV40TA2 PO; +THM100 PO; +ZRX5 PO
[2016-10-13 16:53] LABS: BLOOD UREA NITROGEN 31 mg/dl (7-18); CALCIUM 8.7 mg/dl (8.5-10.1); CARBON DIOXIDE 39 mmol/L (21-32); CHLORIDE 100 mmol/L (98-107); GLUCOSE 82 mg/dl (70-99); MAGNESIUM 2.2 mg/dl (1.8-2.4); POTASSIUM 4.4 mmol/L (3.5-5.1); SODIUM 143 mmol/L (136-145)
== END | disposition home or self-care (01) ==
LOC: C.LABBFT 12:00
PROVIDERS: ATTEND Internal Medicine
DX: J18.9 Pneumonia, unspecified organism (principal)

== ENCOUNTER → 2016-10-17 | Outpatient (CLI) | payer BC ==
[2016-10-17 12:50] LABS: BLOOD UREA NITROGEN 31 mg/dl (7-18); BUN/CREATININE RATIO 23.8 (10-20); CALCIUM 8.1 mg/dl (8.5-10.1); CARBON DIOXIDE 38 mmol/L (21-32); CHLORIDE 98 mmol/L (98-107); GLUCOSE 87 mg/dl (70-99); POTASSIUM 4.5 mmol/L (3.5-5.1); SODIUM 142 mmol/L (136-145)
== END | disposition home or self-care (01) ==
LOC: C.LABBFT 10:59
PROVIDERS: ATTEND Internal Medicine
DX: E87.6 Hypokalemia (principal)

== ENCOUNTER → 2016-10-23 | Outpatient (CLI) | payer BC ==
[2016-10-23 17:31] LABS: BLOOD UREA NITROGEN 26 mg/dl (7-18); BUN/CREATININE RATIO 19.9 (10-20); CALCIUM 8.4 mg/dl (8.5-10.1); CARBON DIOXIDE 37 mmol/L (21-32); CHLORIDE 94 mmol/L (98-107); GLUCOSE 80 mg/dl (70-99); POTASSIUM 4.8 mmol/L (3.5-5.1); SODIUM 137 mmol/L (136-145)
== END | disposition home or self-care (01) ==
LOC: C.LABBFT 11:59
PROVIDERS: ATTEND Internal Medicine
DX: R60.9 Edema, unspecified (principal)

== ENCOUNTER 2016-10-25 19:13 | Emergency (ER) | payer BC ==
[~2016-10-25] VITALS: Ht 190.5 cm; Wt 127.7 kg
[~2016-10-25 19:13] MED LIST changes: -ACET-1325 PO; -CYAN10005 PO; -DMX250 PO; -FOLI1TAB7 PO; -FRS/40 PO; -LPR25 PO; -MCRK20 PO; -NEBMAC; -NTRSLP4 SL; -OXGN; -POTA1TAB97 PO; -SIMV40TA2 PO; -THM100 PO; -ZRX5 PO
[2016-10-25 19:24] VITALS: TEMP 37; Ht 190.5 cm; Wt 127.7 kg
[2016-10-25 19:46] VITALS: O2SAT 95
[2016-10-25] MEDS ORDERED: ALBUT/IPRATROP 3MG/0.5MG NEB 3 ML VIAL INH STA (20:10)
--- NOTE | 2016-10-25 20:18 | DIAGNOSTIC IMAGING REPORT ---
CHEST ONE VIEW PORTABLE CLINICAL HISTORY: Shortness of breath. Respiratory distress. COMPARISON STUDY: Chest CT October 07, 2016 and chest radiograph October 12, 2016. FINDINGS: Lung volumes are normal. There is no pneumothorax or pleural effusion. There are persistent bilateral lower lung opacities. Moderate cardiomegaly is unchanged. There is no evidence of pulmonary edema. IMPRESSION: Persistent bibasilar opacities, similar to prior exam. The opacities could reflect pneumonia or atelectasis. Electronically signed by: Chay Jimenez M.D. 10/25/2016 8:16 PM Dictated Date/Time: 10/25/2016 8:13 PM
[2016-10-25 20:26] LABS: URINE APPEARANCE CLEAR (CLEAR); URINE BILIRUBIN NEG (NEG); URINE COLOR YELLOW; URINE NITRITE NEG (NEG); URINE SPECIFIC GRAVITY 1.003 (1.000-1.030); UROBILINOGEN NEG (NEG)
[2016-10-25 20:31] LABS: MANUAL MICROSCOPIC REQUIRED? NO; REVIEW REQ? NO
[2016-10-25 20:48] LABS: BASO % 0.1 %; BASO ABS # 0.01 K/uL (0-0.2); COMPLETE YES; EOS % 0.4 %; HEMATOCRIT 39.8 % (42-52); IG% 0.6 %; LYMPH % 12.5 %; LYMPH ABS # 1.18 K/uL (1.2-3.4); MEAN CELL VOLUME 104.2 fL (80-100); MEAN CORPUSCULAR HGB CONC 32.7 g/dl (32-36); MEAN PLATELET VOLUME 9.8 fL (7.4-10.4); MONO % 2.1 %; NEUT % 84.3 %; PLATELET COUNT 142 K/uL (130-400); RED BLOOD COUNT 3.82 M/uL (4.7-6.1); WHITE BLOOD COUNT 9.42 K/uL (4.8-10.8)
[2016-10-25 21:05] LABS: ALT/SGPT 40 U/L (12-78); BLOOD UREA NITROGEN 28 mg/dl (7-18); BUN/CREATININE RATIO 21.6 (10-20); CALCIUM 8.4 mg/dl (8.5-10.1); CARBON DIOXIDE 36 mmol/L (21-32); CHLORIDE 93 mmol/L (98-107); GLUCOSE 85 mg/dl (70-99); POTASSIUM 4.4 mmol/L (3.5-5.1); SODIUM 137 mmol/L (136-145)
[2016-10-25 21:07] LABS: INR 1.1 (0.9-1.1); PARTIAL THROMBOPLASTIN RATIO 1.1; PROTHROMBIN TIME (PATIENT) 11.6 SECONDS (9.0-12.0)
[2016-10-25 21:10] LABS: ALB/GLOB RATIO 1.4 (0.9-2); ALKALINE PHOSPHATASE 122 U/L (45-117); AST/SGOT 26 U/L (15-37)
[2016-10-25] MEDS ORDERED: IPRASOL4 INH (21:33)
[2016-10-25] MEDS ORDERED: FUROSEMIDE 40 MG/4 ML VIAL IV STA (22:43)
[2016-10-26 00:05] VITALS: BP 151/72; PULSE 57; O2SAT 93
--- NOTE | 2016-10-26 02:55 | EMERGENCY ROOM VISIT NOTE ---
History Report prepared by Vinayak: Rubi Asencio Under the Supervision of: Dr. Yann Villanueva M.D. First contact with patient: 19:39 Chief Complaint: SHORTNESS OF BREATH Stated Complaint: SOB/EDEMA-LOWER LEGS AND BLEEDING Nursing Triage Summary: pt brought to ED by ALS services, report pt was admitted 2 weeks ago for pneumonia. pt states he started with severe fluid retention in bilateral legs/ankles 3 days ago and worstening sob today. pt wears 4L NC o2 at home and 2L NC at work. EMS reports today pt noticed he was "standing in a puddle" and noticed a varicose vein had ruptured in his right ankle, dressed and bleeding controlled by EMS. weeping in left foot. pt states he has been doubling his home lasix from 20mg to 40mg for the past 3 days. pt voided 300cc prior to arrival. EMS reports pt's systolic BP 185, gave 2 sprays of nitro prehospital. upon arrival pt alert and oriented x4. o2 in place. pt ambulatory to restroom upon arrival, takes off o2, this RN stayed at bedside. upon returning to bed pt's o2 ~77% on RA. 6L NC applied and o2 to 95%. pt has a hx copd and asthma. right ankle bandaged at this time. pt respiratory rate ~24-26 per minute. pt states he has been coughing " a little, not as much as I would like." History of Present Illness The patient is a 61 year old male who presents to the Emergency Room via ALS with complaints of worsening shortness of breath within the past few days. Per patient, he is always short of breath. He wears 2 liters of oxygen at home and 4 liters at work. The patient took 40 mg of Lasix today, after being told to increase his dosage. The patient put out more urine but felt short of breath. The patient notes that his legs have been swollen since his last hospitalization two weeks ago. Tonight, the patient ruptured a varicose vein on his right leg, and he notes he has a weeping left leg. The patient was 77% on room air upon arrival to the ED and ambulating to the bathroom. Pt denies LOC, headache, fevers, chills, diaphoresis, visual changes, neck pain, chest pain, nausea, vomiting, abdominal pain, back pain, melena, hematochezia, urinary symptoms, numbness, weakness, lymphadenopathy, rash, or other complaints. Source of History: patient Onset: past several days Position: chest Quality: other (shortness of breath) Timing: worsening Note: The patient notes that his legs have been swollen since his last hospitalization two weeks ago. Tonight, the patient ruptured a varicose vein on his right leg, and he notes he has a weeping left leg. Review of Systems See HPI for pertinent positives and negatives. A total of ten systems were reviewed and were otherwise negative. Past Medical & Surgical Medical Problems: (1) Acute renal insufficiency (2) Atrial fibrillation with RVR (3) Bilateral lower leg cellulitis (4) CHF (congestive heart failure) (5) COPD (chronic obstructive pulmonary disease) (6) Hyponatremia (7) PNA (pneumonia) (8) SIRS (systemic inflammatory response syndrome) Family History Cancer Heart disease Hypertension Social History Smoking Status: Former Smoker Drug Use: none Marital Status: Housing Status: lives with significant other Occupation Status: employed Current/Historical Medications Scheduled Amiodarone Hcl (Cordarone), 200 MG PO BID Apixaban (Eliquis), 5 MG PO BID Cyanocobalamin (B-12), 1,000 MCG PO DAILY Fluticasone Prop/Salmeterol (Advair Diskus 500/50 60 Dose), 1 PUFF INH BID Folic Acid (Folic Acid), 1 MG PO QAM Furosemide (Lasix), 40 MG PO DAILY Ipratropium-Albuterol (Duoneb), 1 TREATMENT INH BID Metoprolol Tartrate (Lopressor) (Lopressor), 50 MG PO TID Omeprazole (Prilosec), 20 MG PO BID Prednisone Tab (Prednisone), 10 MG PO DIRECTED Simvastatin (Simvastatin), 40 MG PO QPM Scheduled PRN Ipratropium-Albuterol (Combivent Respimat), 1 PUFFS INH QID PRN for SOB/Wheezing Allergies Coded Allergies: No Known Allergies (Unverified , 10/07/16) Physical Exam Vital Signs Date Time Temp Pulse Resp B/P Pulse Ox O2 Delivery O2 Flow Rate FiO2 10/26/16 00:05 57 22 151/72 93 10/25/16 23:05 56 18 135/65 96 Nasal Cannula 4.0 10/25/16 21:16 64 10/25/16 21:13 64 24 148/69 90 Nasal Cannula 4.0 10/25/16 20:01 63 24 112/97 96 Nasal Cannula 6.0 10/25/16 19:46 95 Nasal Cannula 6.0 10/25/16 19:38 95 Nasal Cannula 6.0 Free Flow/Blow[place] 10/25/16 19:24 37.0 63 24 146/86 95 Nasal Cannula 4.0 10/25/16 19:24 Nasal Cannula 4.0 94 Physical Exam GENERAL: Awake, alert, mildly dyspneic appearing, in no distress HENT: Normocephalic, atraumatic. Oropharynx unremarkable. EYES: Normal conjunctiva. Sclera non-icteric. NECK: Supple. No nuchal rigidity. FROM. No JVD. RESPIRATORY: Few expiratory wheezes bilaterally, otherwise clear. CARDIAC: Regular rate, normal rhythm. Extremities warm and well perfused. Pulses equal. ABDOMEN: Soft, non-distended. No tenderness to palpation. No rebound or guarding. No masses. RECTAL: Deferred. MUSCULOSKELETAL: Chest examination reveals no tenderness. The back is symmetrical on inspection without obvious abnormality. There is no CVA tenderness to palpation. No joint edema. LOWER EXTREMITIES: Calves are equal size bilaterally and non-tender. 2-3+ edema bilaterally. Varicosity of right medial ankle. Chronic venous and ecchymotic discoloration. NEURO: Normal sensorium. No sensory or motor deficits noted. SKIN: No rash or jaundice noted. Medical Decision & Procedures ER Provider Diagnostic Interpretation: X-ray: Per my interpretation, radiologist review. CHEST ONE VIEW PORTABLE CLINICAL HISTORY: Shortness of breath. Respiratory distress. COMPARISON STUDY: Chest CT October 07, 2016 and chest radiograph October 12, 2016. FINDINGS: Lung volumes are normal. There is no pneumothorax or pleural effusion. There are persistent bilateral lower lung opacities. Moderate cardiomegaly is unchanged. There is no evidence of pulmonary edema. IMPRESSION: Persistent bibasilar opacities, similar to prior exam. The opacities could reflect pneumonia or atelectasis. Electronically signed by: Chay Jimenez M.D. 10/25/2016 8:16 PM Dictated Date/Time: 10/25/2016 8:13 PM Laboratory Results 10/25/16 20:30 Red Blood Count 3.82, Mean Corpuscular Volume 104.2, Mean Corpuscular Hemoglobin 34.0, Mean Corpuscular Hemoglobin Concent 32.7, Mean Platelet Volume 9.8, Neutrophils (%) (Auto) 84.3, Lymphocytes (%) (Auto) 12.5, Monocytes (%) ( Auto) 2.1, Eosinophils (%) (Auto) 0.4, Basophils (%) (Auto) 0.1, Neutrophils # ( Auto) 7.93, Lymphocytes # (Auto) 1.18, Monocytes # (Auto) 0.20, Eosinophils # ( Auto) 0.04, Basophils # (Auto) 0.01 10/25/16 20:30 Test 10/25/16 00:00 10/25/16 20:30 Urine Color YELLOW Urine Appearance CLEAR (CLEAR) Urine pH 6.0 (4.5-7.5) Urine Specific [place] 1.003 (1.000-1.030) Urine Protein NEG (NEG) Urine Glucose (UA) NEG (NEG) Urine Ketones NEG (NEG) Urine Occult Blood NEG (NEG) Urine Nitrite NEG (NEG) Urine Bilirubin NEG (NEG) Urine Urobilinogen NEG (NEG) Urine Leukocyte Esterase NEG (NEG) White Blood Count 9.42 K/uL (4.8-10.8) Red Blood Count 3.82 M/uL (4.7-6.1) Hemoglobin 13.0 g/dL (14.0-18.0) Hematocrit 39.8 % (42-52) Mean Corpuscular Volume 104.2 fL (80-100) Mean Corpuscular Hemoglobin 34.0 pg (25-34) Mean Corpuscular Hemoglobin Concent 32.7 g/dl (32-36) Platelet Count 142 K/uL (130-400) Mean Platelet Volume 9.8 fL (7.4-10.4) Neutrophils (%) (Auto) 84.3 % Lymphocytes (%) (Auto) 12.5 % Monocytes (%) (Auto) 2.1 % Eosinophils (%) (Auto) 0.4 % Basophils (%) (Auto) 0.1 % Neutrophils # (Auto) 7.93 K/uL (1.4-6.5) Lymphocytes # (Auto) 1.18 K/uL (1.2-3.4) Monocytes # (Auto) 0.20 K/uL (0.11-0.59) Eosinophils # (Auto) 0.04 K/uL (0-0.5) Basophils # (Auto) 0.01 K/uL (0-0.2) RDW Standard Deviation 53.5 fL (36.4-46.3) RDW Coefficient of Variation 14.1 % (11.5-14.5) Immature Granulocyte % (Auto) 0.6 % Immature Granulocyte # (Auto) 0.06 K/uL (0.00-0.02) Prothrombin Time 11.6 SECONDS (9.0-12.0) Prothromb Time International Ratio 1.1 (0.9-1.1) Activated Partial Thromboplast Time 29.2 SECONDS (21.0-31.0) Partial Thromboplastin Ratio 1.1 Anion Gap 8.0 mmol/L (3-11) Est Creatinine Clear Calc Drug Dose 84.8 ml/min Estimated GFR () 67.8 Estimated GFR (Non- 58.5 BUN/Creatinine Ratio 21.6 (10-20) Calcium Level 8.4 mg/dl (8.5-10.1) Total Bilirubin 1.6 mg/dl (0.2-1) Aspartate Amino Transf (AST/SGOT) 26 U/L (15-37) Alanine Aminotransferase (ALT/SGPT) 40 U/L (12-78) Alkaline Phosphatase 122 U/L (45-117) Troponin I < 0.015 ng/ml (0-0.045) Pro-B-Type Natriuretic Peptide 3734 pg/ml (0-900) Total Protein 6.2 gm/dl (6.4-8.2) Albumin 3.6 gm/dl (3.4-5.0) Globulin 2.6 gm/dl (2.5-4.0) Albumin/Globulin Ratio 1.4 (0.9-2) Laboratory results reviewed by me Medications Administered Medications (Trade) Dose Ordered Sig/Franklyn Route Start Time Stop Time Status Last Admin Dose Admin Albuterol/ Ipratropium (Duoneb) 3 ml NOW STAT INH 10/25/16 20:10 10/25/16 20:11 DC 10/25/16 20:32 3 ML Furosemide (Lasix Inj) 40 mg NOW STAT IV 10/25/16 22:43 10/25/16 22:44 DC 10/25/16 23:06 40 MG ECG Indication: SOB/dyspnea Rate (beats per minute): 62 Rhythm: normal sinus Findings: Q waves (anterosepta), no acute ischemic change, no ectopy ED Course 1956: The patient was evaluated in room C9. A complete history and physical exam was performed. Labs from 10/23/16 were reviewed and showed normal renal function and potassium. 2006: Dermabond placed over top of varicosity on right leg. 2009: Duoneb 3 ml INH 2238: I reevaluated the patient; he is doing well and the bleeding from the varicosity has stopped. He states that he would like to go home. The patient will double his oral Lasix to twice a day and will follow up in the office in two days. Discussed results and discharge instructions: He verbalized understanding and agreement. The patient is ready for discharge. 2242: Lasix 40 mg IV Medical Decision Triage Nursing notes reviewed. The patient's presentation and history were concerning for leg swelling, shortness of breath, and a bleeding varicosity. Etiologies such as pneumonia, COPD, reactive airway disease, CHF, cardiac ischemia, pulmonary embolism, pneumothorax, musculoskeletal, infections, gastrointestinal, as well as others were entertained. The patient was evaluated. EMS had placed a pressure dressing and this controlled the bleeding. There was a small punctate wound with a bleeding varicosity. Dermabond was applied after the skin was prepped. This worked well to prevent any further bleeding. The patient had chest x-ray performed. This showed some vascular congestion. The patient's BNP was moderately elevated consistent with his known CHF. The patient took 40 mg of Lasix before coming in. He had multiple urine output episodes. The patient was given 40 mg of IV Lasix. The patient desires discharge home. He wears oxygen 24 hours a day. He feels good with his oxygen. The bleeding is now controlled. His electrolytes and blood work were otherwise unremarkable and any function was normal. The patient will double his Lasix dose to 40 mg twice daily until he is seen on Thursday with his primary office. If he worsens in any way he agrees to come back to the emergency department. By the evaluation outlined above other emergent etiologies such as those listed in the differential, as well as others, were deemed relatively unlikely. The patient and were informed about the findings as listed above. All questions were answered and they were pleased with the treatment. Return instructions were outlined and the patient was discharged in stable condition. The patient was referred to his PCP for follow-up Thursday for a recheck of the current condition. The chart was completed utilizing [employer] Speech voice recognition software. Grammatical errors, random word insertions, pronoun errors, and incomplete sentences are an occasional consequence of this system due to software limitations, ambient noise, and hardware issues. Any formal questions or concerns about the content, text, or information contained within the body of this dictation should be directly addressed to the physician for clarification. Impression Primary Impression: Lower extremity edema Additional Impressions: CHF (congestive heart failure) Ruptured varicosity Scribe Attestation The scribe's documentation has been prepared under my direction and personally reviewed by me in its entirety. I confirm that the note above accurately reflects all work, treatment, procedures, and medical decision making performed by me. Departure Information Dispostion Home / Self-Care Referrals Luis Azevedo M.D. (PCP) Forms HOME CARE DOCUMENTATION FORM, IMPORTANT VISIT INFORMATION Patient Instructions My [facility] Additional Instructions Increase Lasix to 40 mg twice daily until seen by your primary office on Thursday. Fluid restriction as discussed. Dermabond skin adhesive was used to close the wound. It should fall off in 5 to 10 days on its own. You do not did not need to keep it bandaged. Do not soak the wound for 8 hours. After 8 hours you may get it wet, but again do not soak it. Continue current medications otherwise. Use your oxygen. Return to the ER immediately for shortness of breath, chest pain, spreading redness, fevers, pus-like drainage, severe pain, or as needed. Even with antibiotics, infections can worsen. Please follow the instructions given to you by the doctor. Problem Qualifiers
[2016-11-11] MEDS ORDERED: MCRK20 PO (11:13)
[2016-11-11] MEDS ORDERED: THM100 PO (11:13)
[2016-11-11] MEDS ORDERED: ZRX5 PO (11:13)
[2016-11-11] MEDS ORDERED: PRED10TA PO (11:13)
[2016-11-11] MEDS ORDERED: DMX250 PO (11:13)
[2016-11-11] MEDS ORDERED: NTRSLP4 SL (11:13)
[2016-11-20] MEDS ORDERED: LPR25 PO (10:38)
[2016-11-20] MEDS ORDERED: ACET-1325 PO (10:38)
[2016-11-20] MEDS ORDERED: FRS/40 PO (10:38)
[2016-11-20] MEDS ORDERED: OXGN (10:38)
[2016-11-20] MEDS ORDERED: SIMV40TA2 PO (10:38)
[2016-11-20] MEDS ORDERED: POTA1TAB97 PO (10:38)
== END 2016-10-26 00:05 | disposition home or self-care (01) ==
LOC: EDBD 19:13 → C.EDC 19:15
DX: I50.9 Heart failure, unspecified (principal); I83.899 Varicose veins of unspecified lower extremity with other complications; Z87.01 Personal history of pneumonia (recurrent); Z99.81 Dependence on supplemental oxygen; J44.9 Chronic obstructive pulmonary disease, unspecified; I48.91 Unspecified atrial fibrillation; Z82.49 Family history of ischemic heart disease and other diseases of the circulatory system; Z87.891 Personal history of nicotine dependence; Z79.899 Other long term (current) drug therapy

== ENCOUNTER → 2016-10-30 | Outpatient (CLI) | payer BC ==
[~2016-10-30] MED LIST changes: +ACET-1325 PO; +CYAN10005 PO; +DMX250 PO; +FOLI1TAB7 PO; +FRS/40 PO; +LPR25 PO; -LVQ750 PO; +MCRK20 PO; +NTRSLP4 SL; -NYSS5 PO; +OXGN; +POTA1TAB97 PO; +SIMV40TA2 PO; +THM100 PO; +ZRX5 PO
[2016-10-30 10:34] LABS: BLOOD UREA NITROGEN 21 mg/dl (7-18); GLUCOSE 93 mg/dl (70-99)
[2016-10-30 10:35] LABS: BUN/CREATININE RATIO 16.3 (10-20); CALCIUM 8.5 mg/dl (8.5-10.1); CARBON DIOXIDE 40 mmol/L (21-32); CHLORIDE 95 mmol/L (98-107); POTASSIUM 4.2 mmol/L (3.5-5.1); SODIUM 139 mmol/L (136-145)
== END | disposition home or self-care (01) ==
LOC: C.LAB1850 09:10
PROVIDERS: ATTEND Internal Medicine
DX: R60.9 Edema, unspecified (principal)

== ENCOUNTER → 2016-10-31 | Outpatient (CLI) | payer BC ==
--- NOTE | 2016-10-31 17:31 | DIAGNOSTIC IMAGING REPORT ---
LEFT LOWER EXTREMITY VENOUS DOPPLER HISTORY: Left leg swelling. COMPARISON STUDY: None. FINDINGS: There is normal compressibility, flow, and augmentation within the left lower extremity deep venous system. Subcutaneous trace edema within the left lower leg. IMPRESSION: No DVT within the left lower extremity. Electronically signed by: Skyler Lamar M.D. 10/31/2016 5:30 PM Dictated Date/Time: 10/31/2016 5:29 PM
== END | disposition home or self-care (01) ==
LOC: C.ULTR 16:49
PROVIDERS: ATTEND Internal Medicine
DX: M79.89 Other specified soft tissue disorders (principal)

== ENCOUNTER 2016-11-05 03:54 | Inpatient (IN) | payer BC ==
[~2016-11-05] VITALS: Ht 193 cm; Wt 111.8 kg
[2016-11-05] VITALS (8 sets, daily range): BP systolic 104–144; BP diastolic 55–72; PULSE 57–83; TEMP 36.4–36.8; O2SAT 89–97; Ht 193 cm; Wt 111.8 kg
[~2016-11-05 03:54] MED LIST changes: -ACET-1325 PO; -CYAN10005 PO; -DMX250 PO; -FOLI1TAB7 PO; -FRS/40 PO; -LPR25 PO; -MCRK20 PO; -NTRSLP4 SL; -OXGN; -POTA1TAB97 PO; -SIMV40TA2 PO; -THM100 PO; -ZRX5 PO
--- NOTE | 2016-11-05 04:35 | EMERGENCY ROOM VISIT NOTE ---
History Report prepared by Vinayak: Jourdan Gentile Under the Supervision of: Dr. Jacquie Neri D.O. First contact with patient: 03:57 Chief Complaint: CARDIAC ASSESSMENT Stated Complaint: SHORT OF BREATH/MUSCLE TREMORS/CHEST DISCOMFORT History of Present Illness The patient is a 61 year old male who presents to the Emergency Room with complaints of constant shortness of breath starting prior to arrival. The patient additionally complains of some chest pressure that started a month or two ago as well coughing up some fluid from his lungs. The patient's states that he was admitted to the hospital on 10/22 for pneumonia. He states that he is currently taking Lasix and prednisone. The patient denies any abdominal pain. The patient's additionally states that the patient has been having arm weakness, he is thirsty, and he felt light headed after going to the bathroom. The patient additionally states that he has A-fib. Source of History: patient, spouse/significant other Onset: prior to arrival Position: other (global) Quality: other (shortness of breath) Timing: constant Associated Symptoms: + cough, No abdominal pain Note: Associated symptoms: Chest pressure and light headedness Review of Systems See HPI for pertinent positives & negatives. A total of 10 systems reviewed and were otherwise negative. Past Medical & Surgical Medical Problems: (1) Acute renal insufficiency (2) Atrial fibrillation with RVR (3) Bilateral lower leg cellulitis (4) CHF (congestive heart failure) (5) CHF exacerbation (6) COPD (chronic obstructive pulmonary disease) (7) Hyponatremia (8) PNA (pneumonia) (9) SIRS (systemic inflammatory response syndrome) Family History Cancer Heart disease Hypertension Social History Smoking Status: Former Smoker Drug Use: none Marital Status: Housing Status: lives with significant other Occupation Status: employed Current/Historical Medications Scheduled Amiodarone Hcl (Cordarone), 200 MG PO BID Apixaban (Eliquis), 5 MG PO BID Cyanocobalamin (Vitamin B-12), 1,000 MCG PO DAILY Fluticasone Prop/Salmeterol (Advair Diskus 500/50 60 Dose), 1 PUFF INH BID Folic Acid (Folvite), 1 MG PO DAILY Furosemide (Lasix), 40 MG PO DAILY Ipratropium-Albuterol (Duoneb), 1 TREATMENT INH BID Metoprolol Tartrate (Lopressor) (Lopressor), 50 MG PO TID Omeprazole (Prilosec), 20 MG PO BID Prednisone Tab (Prednisone), 10 MG PO DIRECTED Simvastatin (Simvastatin), 40 MG PO QPM Scheduled PRN Ipratropium-Albuterol (Combivent Respimat), 1 PUFFS INH QID PRN for SOB/Wheezing Allergies Coded Allergies: No Known Allergies (Unverified , 11/05/16) Physical Exam Vital Signs Date Time Temp Pulse Resp B/P Pulse Ox O2 Delivery O2 Flow Rate FiO2 11/05/16 06:16 79 17 178/76 97 BiPAP Mask 11/05/16 05:38 81 20 163/86 92 BiPAP 40 11/05/16 04:31 84 19 166/69 87 BiPAP 40 11/05/16 04:20 83 92 40 11/05/16 04:06 81 11/05/16 04:00 47 Nasal Cannula 4.0 11/05/16 04:00 82 19 152/78 47 Nasal Cannula 4.0 11/05/16 04:00 97 Mask 15.0 Non-Rebreather Physical Exam HEENT: Head - normocephalic and atraumatic Pupils are equal, round, and reactive to light. Extraocular eye muscles are intact, and sclera are anicteric. Nose - moist nasal mucosa without discharge. Mouth - moist buccal mucosa. Oropharynx is nonerythematous and there is no tonsillar exudate or edema noted. Neck: Supple; no JVD, nuchal rigidity, cervical lymphadenopathy. Heart: Regular rate and rhythm. There is a normal S1 and S2 with no murmurs, clicks, or gallops appreciated. Lungs: Rales and wheezing in all lung wayne. Abdomen: Soft, completely nontender, nondistended, with good bowel sounds. There are no palpable pulsatile masses or hepatosplenomegaly. There is no guarding, rigidity, or rebound noted. Extremities: Lower extremity edema left greater than the right. Moderate erythema surrounding the left tib fib. No evidence of clubbing. There are easily palpable peripheral pulses. Skin: Skin is cyanotic. Warm and dry with good turgor and no rashes. Medical Decision & Procedures ER Provider Diagnostic Interpretation: X-ray results as stated below per interpretation by me Chest X-ray: Moderate to severe congestive heart failure. Cardiomegaly. Similar to his x-ray from 10/25/2016 Laboratory Results 11/05/16 04:50 Red Blood Count 3.41, Mean Corpuscular Volume 112.3, Mean Corpuscular Hemoglobin 34.9, Mean Corpuscular Hemoglobin Concent 31.1, Mean Platelet Volume 9.3, Neutrophils (%) (Auto) 84.3, Lymphocytes (%) (Auto) 6.5, Monocytes (%) ( Auto) 6.7, Eosinophils (%) (Auto) 0.2, Basophils (%) (Auto) 0.2, Neutrophils # ( Auto) 6.87, Lymphocytes # (Auto) 0.53, Monocytes # (Auto) 0.55, Eosinophils # ( Auto) 0.02, Basophils # (Auto) 0.02 11/05/16 04:50 Test 11/05/16 04:50 11/05/16 05:33 White Blood Count 8.16 K/uL (4.8-10.8) Red Blood Count 3.41 M/uL (4.7-6.1) Hemoglobin 11.9 g/dL (14.0-18.0) Hematocrit 38.3 % (42-52) Mean Corpuscular Volume 112.3 fL (80-100) Mean Corpuscular Hemoglobin 34.9 pg (25-34) Mean Corpuscular Hemoglobin Concent 31.1 g/dl (32-36) Platelet Count 171 K/uL (130-400) Mean Platelet Volume 9.3 fL (7.4-10.4) Neutrophils (%) (Auto) 84.3 % Lymphocytes (%) (Auto) 6.5 % Monocytes (%) (Auto) 6.7 % Eosinophils (%) (Auto) 0.2 % Basophils (%) (Auto) 0.2 % Neutrophils # (Auto) 6.87 K/uL (1.4-6.5) Lymphocytes # (Auto) 0.53 K/uL (1.2-3.4) Monocytes # (Auto) 0.55 K/uL (0.11-0.59) Eosinophils # (Auto) 0.02 K/uL (0-0.5) Basophils # (Auto) 0.02 K/uL (0-0.2) RDW Standard Deviation 62.6 fL (36.4-46.3) RDW Coefficient of Variation 15.5 % (11.5-14.5) Immature Granulocyte % (Auto) 2.1 % Immature Granulocyte # (Auto) 0.17 K/uL (0.00-0.02) Nucleated RBC Absolute Count (auto) 0.04 K/uL (0-0) Nucleated Red Blood Cells % 0.5 % Macrocytosis PRESENT Stomatocytes 1+ Prothrombin Time 12.7 SECONDS (9.0-12.0) Prothromb Time International Ratio 1.2 (0.9-1.1) Activated Partial Thromboplast Time 32.7 SECONDS (21.0-31.0) Partial Thromboplastin Ratio 1.3 Anion Gap 6.0 mmol/L (3-11) Est Creatinine Clear Calc Drug Dose 72.0 ml/min Estimated GFR () 57.0 Estimated GFR (Non- 49.2 BUN/Creatinine Ratio 19.4 (10-20) Calcium Level 8.6 mg/dl (8.5-10.1) Total Creatine Kinase 17 U/L (39-308) Creatine Kinase MB 1.0 ng/ml (0.5-3.6) Creatine Kinase MB Ratio 5.9 (0-3.0) Troponin I 0.015 ng/ml (0-0.045) Pro-B-Type Natriuretic Peptide 5779 pg/ml (0-900) Bedside Blood Gas pH (LAB) 7.32 (7.35-7.45) Bedside Blood Gas pCO2 (LAB) 81 mmHg (35-46) Bedside Blood Gas pO2 (LAB) 43 mmHg (80-95) Bedside Blood Gas HCO3 (LAB) 42 meq/L (19-24) Bedside Blood Gas Total CO2 > 40 mEq/l (24-31) Bedside Blood Gas Base Excess (LAB) 16.0 meq/L (-9-1.8) Bedside Blood Gas O2 Saturation 72.0 % (90-95) Laboratory results per my review. Medications Administered Medications (Trade) Dose Ordered Sig/[place] Route Start Time Stop Time Status Last Admin Dose Admin Furosemide (Lasix Inj) 80 mg STK-MED ONCE .ROUTE 11/05/16 05:52 11/05/16 05:54 DC 11/05/16 05:56 80 MG Procedure BiPAP IV Lasix ECG Indication: SOB/dyspnea Rate (beats per minute): 78 Rhythm: normal sinus Findings: 1st degree AV block, no acute ischemic change, no ectopy ED Course 0357: Past medical records reviewed. The patient was evaluated in room B6. A complete history and physical exam was performed. A twelve-lead EKG was obtained. Labs drawn as above. A portable chest x-ray was performed. 0504: I reevaluated the patient, and he was much more comfortable, but his oxygen saturation is only 88% on BiPAP. So he is going to get ABG 0534: I reevaluated the patient, and he was resting comfortably. They changed the position of the pulse ox to his forehead, and they are getting reads of 93. However by ABG the PO2 is 43, so we increased the FiO2 in the BiPAP to 50. Additionally, I discussed intubation with him and his . The ABG may actually be venous since the O2 saturation was 72%. 0542: Furosemide 80mg IV 0625: I discussed the patient's case with Dr. Cantu. He is going to evaluate the patient for further treatment Medical Decision The patient is a 61 year old male who presents to the ED with shortness of breath. Differential diagnosis includes pneumonia, bronchitis, COPD exacerbation , CHF, and cardiac ischemia. White blood cell count 8.1, hemoglobin 11.9, platelet 171, BUN 29, creatinine 1.5, glucose 119, BNP 5779, troponin 0.15 ABG pH 7.32, PCO2 81.2, PO2 43, Bicarb 42, SO2 of 72% This is a 61-year-old male patient with a history of COPD, CHF, and pneumonia. The patient was recently evaluated and had his dose of Lasix increased to 40 mg twice a day. The explains that his respiratory complaints and chest pressure started within the past 12 hours. She has noticed increased weakness and thirst. When EMS arrived on scene, the patient was on his usual 4 L of O2 by nasal cannula with an O2 saturation of 50%. Chest x-ray shows moderate congestive heart failure. Physical exam is consistent with this. The patient has had some improvement on BiPAP. His chest pressure resolved after his O2 saturations came up into the 90s. He had a normal-appearing EKG and negative troponin. Consults Time Called: 05 Consulting Physician: Dr. Cantu Returned Call: [phone] I discussed the patient's case with Dr. Cantu. He is going to evaluate the patient for further treatment Impression Primary Impression: Hypoxia Additional Impressions: CHF (congestive heart failure) Chest pressure Scribe Attestation The scribe's documentation has been prepared under my direction and personally reviewed by me in its entirety. I confirm that the note above accurately reflects all work, treatment, procedures, and medical decision making performed by me. Departure Information Dispostion Being Evaluated By Hospitalist Referrals Luis Azevedo M.D. (PCP) Problem Qualifiers
[2016-11-05] MEDS ORDERED: CYAN10005 PO (04:52)
[2016-11-05] MEDS ORDERED: FOLI1TAB7 PO (04:54)
[2016-11-05] MEDS ORDERED: PRED10TA PO (04:57)
[2016-11-05 05:01] LABS: BASO % 0.2 %; BASO ABS # 0.02 K/uL (0-0.2); EOS % 0.2 %; HEMATOCRIT 38.3 % (42-52); IG% 2.1 %; LYMPH % 6.5 %; LYMPH ABS # 0.53 K/uL (1.2-3.4); MEAN CELL VOLUME 112.3 fL (80-100); MEAN CORPUSCULAR HEMOGLOBIN 34.9 pg (25-34); MEAN CORPUSCULAR HGB CONC 31.1 g/dl (32-36); MEAN PLATELET VOLUME 9.3 fL (7.4-10.4); MONO % 6.7 %; NEUT % 84.3 %; PLATELET COUNT 171 K/uL (130-400); RED BLOOD COUNT 3.41 M/uL (4.7-6.1); WHITE BLOOD COUNT 8.16 K/uL (4.8-10.8)
[2016-11-05 05:13] LABS: INR 1.2 (0.9-1.1); PARTIAL THROMBOPLASTIN RATIO 1.3; PROTHROMBIN TIME (PATIENT) 12.7 SECONDS (9.0-12.0)
[2016-11-05 05:19] LABS: BUN/CREATININE RATIO 19.4 (10-20); CALCIUM 8.6 mg/dl (8.5-10.1); CREATININE 1.5 mg/dl (0.60-1.40); POTASSIUM 4.6 mmol/L (3.5-5.1)
[2016-11-05 05:24] LABS: CKMB/CK RATIO 5.9 (0-3.0)
[2016-11-05 05:32] LABS: COMPLETE YES; STOMATOCYTE 1+
[2016-11-05] MEDS ORDERED: FUROSEMIDE INJ 80 MG in SYRINGE 0 ML IV STA (05:42)
[2016-11-05] MEDS ORDERED: FUROSEMIDE 40 MG/4 ML VIAL ONE (05:52)
[2016-11-05 05:57] LABS: ISTAT ARTERIAL BLOOD GAS HCO3 42 meq/L (19-24); ISTAT ARTERIAL BLOOD GAS PCO2 81 mmHg (35-46); ISTAT ARTERIAL BLOOD GAS PO2 43 mmHg (80-95); ISTAT ARTERIAL BLOOD GAS pH 7.32 (7.35-7.45); ISTAT CARBON DIOXIDE > 40 mEq/l (24-31)
[2016-11-05] MEDS ORDERED: IPRATROPIUM BROMIDE/ALBUTEROL respimat INH INH PRN (06:15)
[2016-11-05] MEDS ORDERED: NITROGLYCERIN 0.4 MG SL PER TAB CHARGE SL PRN (06:15)
[2016-11-05] MEDS ORDERED: MAGNESIUM HYDROXIDE SUSP 30 ML UDC PO PRN (06:15)
[2016-11-05] MEDS ORDERED: ALUMINUM/MAGNESIUM/SIMETH (MAALOX MAX) 30 ML UDC PO PRN (06:15)
[2016-11-05] MEDS ORDERED: POLYETHYLENE (MIRALAX) 17 GM PACK PO PRN (06:15)
[2016-11-05] MEDS ORDERED: MoRPHine SULFATE 2 MG/ML CARP IV PRN (06:15)
[2016-11-05] MEDS ORDERED: ONDANSETRON INJ 2 MG/ML 2 ML VIAL IV PRN (06:15)
--- NOTE | 2016-11-05 06:25 | DIAGNOSTIC IMAGING REPORT ---
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 Mild persistent prominence of pulmonary vasculature. Diaphragms smooth. Costophrenic angles are sharp. IMPRESSION: Pulmonary venous congestion versus early congestive failure Electronically signed by: Raymundo Fitzgerald M.D. 11/05/2016 6:23 AM Dictated Date/Time: 11/05/2016 6:23 AM
--- NOTE | 2016-11-05 06:47 | History and Physical ---
History & Physical Date & Time of Service: Nov 05, 2016 at 06:27 Chief Complaint: Short Of Breath/Muscle Tremors/Chest Discomfort Primary Care Physician: Luis Azevedo M.D. History of Present Illness Source: patient 61 y/o M w/Hx advanced COPD, PAF and diastolic CHF. Pt was recently admitted for COPD and pneumonia. Presents with progressive SOB limiting any activity. Also complained of central chest tightness prior to admission and B/L hand tremors. He denies N/V, diaphoresis. Denies a productive cough or significant wheezing. Denies fevers/rigors. Initial CXR is consistent with pulmonary edema. Pt required Bipap to maintain an adequate 02 saturation on arrival to ER. Pt also states that he had increased his Lasix dose due to SOB earlier in the week. Past Medical/Surgical History Medical Problems: (1) Atrial fibrillation with RVR Status: Resolved (2) Bilateral lower leg cellulitis Status: Resolved (3) CHF (congestive heart failure) Status: Chronic (4) COPD (chronic obstructive pulmonary disease) Status: Chronic 4l 02 (5) PNA (pneumonia) Status: Resolved (6) SIRS (systemic inflammatory response syndrome) Status: Resolved Family History Cancer Heart disease Hypertension Social History Smoking Status: Former Smoker Drug Use: none Marital Status: Housing status: lives with significant other Occupational Status: employed Immunizations History of Influenza Vaccine: Yes History of Tetanus Vaccine?: Yes History of Pneumococcal: Yes History of Hepatitis B Vaccine: No Multi-Drug Resistant Organisms History of MDRO: No Allergies Coded Allergies: No Known Allergies (Unverified , 11/05/16) Home Medications Scheduled Amiodarone Hcl (Cordarone), 200 MG PO BID Apixaban (Eliquis), 5 MG PO BID Cyanocobalamin (Vitamin B-12), 1,000 MCG PO DAILY Fluticasone Prop/Salmeterol (Advair Diskus 500/50 60 Dose), 1 PUFF INH BID Folic Acid (Folvite), 1 MG PO DAILY Furosemide (Lasix), 40 MG PO DAILY Ipratropium-Albuterol (Duoneb), 1 TREATMENT INH BID Metoprolol Tartrate (Lopressor) (Lopressor), 50 MG PO TID Omeprazole (Prilosec), 20 MG PO BID Prednisone Tab (Prednisone), 10 MG PO DIRECTED Simvastatin (Simvastatin), 40 MG PO QPM Scheduled PRN Ipratropium-Albuterol (Combivent Respimat), 1 PUFFS INH QID PRN for SOB/Wheezing Review of Systems Constitutional: No chills, No fever, No sweats Eyes: No eye pain, No worsening of vision ENT: No hearing loss, No nasal symptoms, No unusual epistaxis Respiratory: + dyspnea at rest, + dyspnea on exertion, + shortness of breath, No cough, No sputum, No wheezing Cardiovascular: + chest pain, + edema, + orthopnea, No PND, No claudication Abdomen: No nausea, No pain, No vomiting Musculoskeletal: No joint pain Genitourinary - Male: No dysuria, No hematuria Neurologic: No memory loss, No paralysis, No weakness Psychiatric: No depression symptoms Endocrine: No fatigue Hematologic / Lymphatic: No abnormal bleeding/bruising Integumentary: No rash Allergic / Immunologic: No environmental allergies Physical Exam Vital Signs Date Time Temp Pulse Resp B/P Pulse Ox O2 Delivery O2 Flow Rate FiO2 11/05/16 05:38 81 20 163/86 92 BiPAP 40 11/05/16 04:31 84 19 166/69 87 BiPAP 40 11/05/16 04:20 83 92 40 11/05/16 04:06 81 11/05/16 04:00 47 Nasal Cannula 4.0 11/05/16 04:00 82 19 152/78 47 Nasal Cannula 4.0 11/05/16 04:00 97 Mask 15.0 Non-Rebreather General Appearance: WD/WN, no apparent distress Head: normocephalic, atraumatic Eyes: normal inspection, PERRL, EOMI ENT: normal ENT inspection, pharynx normal Neck: supple, + JVD Respiratory/Chest: chest non-tender, + decreased breath sounds, + crackles Cardiovascular: regular rate, rhythm, + JVD Abdomen/GI: normal bowel sounds, non tender, soft Back: normal inspection, no CVA tenderness Extremities/Musculoskelatal: normal inspection, no calf tenderness, + pedal edema, + swelling, + pertinent finding Neurologic/Psych: tours hostess II-XII nml as tested, no motor/sensory deficits, alert, normal mood/affect, normal reflexes, oriented x 3 Skin: normal color, warm/dry, no rash Diagnostics Laboratory Results Results Past 24 Hours Test 11/05/16 04:50 11/05/16 05:33 Range/Units White Blood Count 8.16 4.8-10.8 K/uL Red Blood Count 3.41 4.7-6.1 M/uL Hemoglobin 11.9 14.0-18.0 g/dL Hematocrit 38.3 42-52 % Mean Corpuscular Volume 112.3 80-100 fL Mean Corpuscular Hemoglobin 34.9 25-34 pg Mean Corpuscular Hemoglobin Concent 31.1 32-36 g/dl Platelet Count 171 130-400 K/uL Mean Platelet Volume 9.3 7.4-10.4 fL Neutrophils (%) (Auto) 84.3 % Lymphocytes (%) (Auto) 6.5 % Monocytes (%) (Auto) 6.7 % Eosinophils (%) (Auto) 0.2 % Basophils (%) (Auto) 0.2 % Neutrophils # (Auto) 6.87 1.4-6.5 K/uL Lymphocytes # (Auto) 0.53 1.2-3.4 K/uL Monocytes # (Auto) 0.55 0.11-0.59 K/uL Eosinophils # (Auto) 0.02 0-0.5 K/uL Basophils # (Auto) 0.02 0-0.2 K/uL RDW Standard Deviation 62.6 36.4-46.3 fL RDW Coefficient of Variation 15.5 11.5-14.5 % Immature Granulocyte % (Auto) 2.1 % Immature Granulocyte # (Auto) 0.17 0.00-0.02 K/uL Nucleated RBC Absolute Count (auto) 0.04 0-0 K/uL Nucleated Red Blood Cells % 0.5 % Macrocytosis PRESENT Stomatocytes 1+ Prothrombin Time 12.7 9.0-12.0 SECONDS Prothromb Time International Ratio 1.2 0.9-1.1 Activated Partial Thromboplast Time 32.7 21.0-31.0 SECONDS Partial Thromboplastin Ratio 1.3 Sodium Level 139 136-145 mmol/L Potassium Level 4.6 3.5-5.1 mmol/L Chloride Level 94 98-107 mmol/L Carbon Dioxide Level 39 21-32 mmol/L Anion Gap 6.0 3-11 mmol/L Blood Urea Nitrogen 29 7-18 mg/dl Creatinine 1.50 0.60-1.40 mg/dl Est Creatinine Clear Calc Drug Dose 72.0 ml/min Estimated GFR () 57.0 Estimated GFR (Non- 49.2 BUN/Creatinine Ratio 19.4 10-20 Random Glucose 119 70-99 mg/dl Calcium Level 8.6 8.5-10.1 mg/dl Total Creatine Kinase 17 39-308 U/L Creatine Kinase MB 1.0 0.5-3.6 ng/ml Creatine Kinase MB Ratio 5.9 0-3.0 Troponin I 0.015 0-0.045 ng/ml Pro-B-Type Natriuretic Peptide 5779 0-900 pg/ml Bedside Blood Gas pH (LAB) 7.32 7.35-7.45 Bedside Blood Gas pCO2 (LAB) 81 35-46 mmHg Bedside Blood Gas pO2 (LAB) 43 80-95 mmHg Bedside Blood Gas HCO3 (LAB) 42 19-24 meq/L Bedside Blood Gas Total CO2 > 40 24-31 mEq/l Bedside Blood Gas Base Excess (LAB) 16.0 -9-1.8 meq/L Bedside Blood Gas O2 Saturation 72.0 90-95 % Diagnostic Radiology CXR: CHF EKG Sinus , incomplete RBBB Impression Assessment and Plan 61 y/o M w/Hx advanced COPD, PAF and diastolic CHF. Pt was recently admitted for COPD and pneumonia. Presents with progressive SOB limiting any activity. Also complained of central chest tightness prior to admission and B/L hand tremors. He denies N/V, diaphoresis. Denies a productive cough or significant wheezing. Denies fevers/rigors. Initial CXR is consistent with pulmonary edema. Pt required Bipap to maintain an adequate 02 saturation on arrival to ER. 1) CHF exacerbation - echo on record 02/17 does not specifically mention systolic or diastolic dysfunction and revealed a preserved EF. Pt will be treated with IV lasix and we will obtain a repeat limited echo. 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 We will cont his B juan ramon. He will remain on Bipap until he is adequately diuresed and can tolerate a NC. We will rule out an acute event with serial troponins due to earlier complaint of CP. 2) COPD - pt is completing a Prednisone taper and will cont Duonebs in addition to Advair. Current SOB does not appear related to an acute exacerbation. 3) PAF - rhythm is sinus on admission - pt is anticoagulated with Apixaban - cont Amio, Toprol. 4) Pt states he drinks 3 beers daily - I have informed him that this can lead to water retention and should likey be avoided with underlying CHF. 5) Renal function is impared compared to baseline - this may be due to CHF - will trend in AM Full code - anticoagulated with Apixaban Total time for this admit including review of records, labs, imaging, EKG - discussion with ER MD and pt - 37 min Level of Care Telemetry Resuscitation Status FULL RESUSCITATION VTE Prophylaxis VTE Risk Assessment Done? Y/N: Yes Risk Level: Moderate Given or contraindicated: Other Anticoagulation
[2016-11-05] MEDS ORDERED: ALBUT/IPRATROP 3MG/0.5MG NEB 3 ML VIAL INH SCH (09:00)
[2016-11-05] MEDS: FLUTICASONE/SALMETEROL (ADVAIR) 500/50 INH 14 PUFF INH SCH ×2 (09:34→21:37)
[2016-11-05] MEDS: FUROSEMIDE INJ 40 MG in SYRINGE 0 ML IV SCH ×2 (09:35→21:39)
[2016-11-05] MEDS: METOPROLOL TARTRATE 50 MG TAB PO SCH ×3 (09:35→21:00)
[2016-11-05] MEDS: AMIODARONE 200 MG TAB PO SCH ×2 (09:35→21:42)
[2016-11-05] MEDS: POTASSIUM CHLORIDE 20 MEQ TABCR PO SCH ×2 (09:36→21:40)
[2016-11-05] MEDS: CYANOCOBALAMIN 500 MCG TAB (VIT B-12) PO SCH (09:36)
[2016-11-05] MEDS: APIXABAN 2.5 MG TAB PO SCH ×2 (09:36→21:41)
[2016-11-05] MEDS: PANTOprazole SOD 40 MG TAB PO SCH ×2 (09:37→21:41)
[2016-11-05] MEDS: NITROGLYCERIN OINT 2% 1GM PACKET EXT SCH ×3 (09:37→18:19)
--- NOTE | 2016-11-05 11:45 | Progress Note ---
Subjective Date of Service: Nov 05, 2016. Subjective Pt evaluation today including: conversation w/ patient, conversation w/ family , physical exam, chart review, lab review, review of studies, review of inpatient medication list Voiding: no voiding problems On BiPAP, awake and alert and orientated, conversational, has a lot of urine output, no other complaint Problem List Medical Problems: (1) Acute renal failure Status: Acute (2) Chest pressure Status: Acute (3) CHF (congestive heart failure) Status: Acute (4) CHF (congestive heart failure) Status: Chronic (5) COPD (chronic obstructive pulmonary disease) Status: Acute (6) COPD exacerbation Status: Acute (7) Hypokalemia Status: Acute (8) Hypoxia Status: Acute (9) SOB (shortness of breath) Status: Acute Review of Systems Constitutional: No chills, No fatigue, No fever, No problem reported, No sweats , No weakness, No weight loss Eyes: No diplopia, No discharge, No eye pain, No redness, No worsening of vision ENT: No dental problems, No hearing loss, No nasal symptoms, No sore throat, No tinnitus, No trouble swallowing, No unusual epistaxis Respiratory: + shortness of breath, No cough, No dyspnea at rest, No dyspnea on exertion, No hemoptysis, No sputum, No wheezing Cardiac: No PND, No chest pain, No claudication, No edema, No orthopnea, No palpitations Abdomen: No constipation, No diarrhea, No nausea, No pain, No vomiting Musculoskeletal: No calf pain, No joint pain, No muscle pain, No swelling Male : No dysuria, No hematuria, No incontinence, No nocturia more than once/ night, No slowing stream, No urinary frequency Neurologic: No balance problems, No memory loss, No numbness/tingling, No paralysis, No vertigo, No weakness Psychiatric: No anhedonism, No anxiety, No depression symptoms, No insomnia, No substance abuse Heme: No abnormal bleeding/bruising, No clotting problems, No night sweats, No swollen lymph nodes Endo: + fatigue, No excessive thirst, No excessive urination Skin: No bleeding, No color change, No itch, No new/changing skin lesions, No rash Objective Vital Signs Date Time Temp Pulse Resp B/P Pulse Ox O2 Delivery O2 Flow Rate FiO2 11/05/16 11:20 36.8 70 22 138/71 90 Nasal Cannula 6.0 11/05/16 08:40 36.5 78 18 144/66 89 Nasal Cannula 6.0 11/05/16 08:40 Nasal Cannula 6.0 11/05/16 08:08 76 18 134/57 100 BiPAP 11/05/16 07:49 97 BiPAP 15.0 40 11/05/16 07:23 75 11/05/16 06:16 79 17 178/76 97 BiPAP Mask 11/05/16 05:38 81 20 163/86 92 BiPAP 40 11/05/16 04:31 84 19 166/69 87 BiPAP 40 11/05/16 04:20 83 92 40 11/05/16 04:06 81 11/05/16 04:00 47 Nasal Cannula 4.0 11/05/16 04:00 82 19 152/78 47 Nasal Cannula 4.0 11/05/16 04:00 97 Mask 15.0 Non-Rebreather Physical Exam General Appearance: WD/WN, no apparent distress Eyes: normal inspection, PERRL, EOMI, sclerae normal ENT: normal ENT inspection, hearing grossly normal, pharynx normal Neck: supple, no adenopathy, thyroid normal, no JVD, no carotid bruits, trachea midline Respiratory/Chest: chest non-tender, normal breath sounds, no respiratory distress, no accessory muscle use, + decreased breath sounds, + wheezing Cardiovascular: regular rate, rhythm, no gallop, no JVD, no murmur Abdomen: normal bowel sounds, non tender, soft, no organomegaly, no pulsatile mass Extremities: normal range of motion, non-tender, normal inspection, no pedal edema, no calf tenderness, normal capillary refill, pelvis stable, + swelling 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, no motor/sensory deficits, alert, normal mood/affect, oriented x 3 Skin: normal color, warm/dry, no rash Lymphatic: no adenopathy Laboratory Results Last 24 Hours Test 11/05/16 04:50 11/05/16 05:33 White Blood Count 8.16 K/uL Red Blood Count 3.41 M/uL Hemoglobin 11.9 g/dL Hematocrit 38.3 % Mean Corpuscular Volume 112.3 fL Mean Corpuscular Hemoglobin 34.9 pg Mean Corpuscular Hemoglobin Concent 31.1 g/dl Platelet Count 171 K/uL Mean Platelet Volume 9.3 fL Neutrophils (%) (Auto) 84.3 % Lymphocytes (%) (Auto) 6.5 % Monocytes (%) (Auto) 6.7 % Eosinophils (%) (Auto) 0.2 % Basophils (%) (Auto) 0.2 % Neutrophils # (Auto) 6.87 K/uL Lymphocytes # (Auto) 0.53 K/uL Monocytes # (Auto) 0.55 K/uL Eosinophils # (Auto) 0.02 K/uL Basophils # (Auto) 0.02 K/uL RDW Standard Deviation 62.6 fL RDW Coefficient of Variation 15.5 % Immature Granulocyte % (Auto) 2.1 % Immature Granulocyte # (Auto) 0.17 K/uL Nucleated RBC Absolute Count (auto) 0.04 K/uL Nucleated Red Blood Cells % 0.5 % Macrocytosis PRESENT Stomatocytes 1+ Prothrombin Time 12.7 SECONDS Prothromb Time International Ratio 1.2 Activated Partial Thromboplast Time 32.7 SECONDS Partial Thromboplastin Ratio 1.3 Sodium Level 139 mmol/L Potassium Level 4.6 mmol/L Chloride Level 94 mmol/L Carbon Dioxide Level 39 mmol/L Anion Gap 6.0 mmol/L Blood Urea Nitrogen 29 mg/dl Creatinine 1.50 mg/dl Est Creatinine Clear Calc Drug Dose 72.0 ml/min Estimated GFR () 57.0 Estimated GFR (Non- 49.2 BUN/Creatinine Ratio 19.4 Random Glucose 119 mg/dl Calcium Level 8.6 mg/dl Total Creatine Kinase 17 U/L Creatine Kinase MB 1.0 ng/ml Creatine Kinase MB Ratio 5.9 Troponin I 0.015 ng/ml Pro-B-Type Natriuretic Peptide 5779 pg/ml Bedside Blood Gas pH (LAB) 7.32 Bedside Blood Gas pCO2 (LAB) 81 mmHg Bedside Blood Gas pO2 (LAB) 43 mmHg Bedside Blood Gas HCO3 (LAB) 42 meq/L Bedside Blood Gas Total CO2 > 40 mEq/l Bedside Blood Gas Base Excess (LAB) 16.0 meq/L Bedside Blood Gas O2 Saturation 72.0 % Assessment and Plan 61 y/o M admitted because of dyspnea on exertion, progressively getting worse, COPD CHF exacerbation on 11/05/2016 Hx of advanced COPD, PAF and diastolic CHF. Pt was recently admitted for COPD and pneumonia. he presents to the emergency known with progressive SOB limiting any activity. Also complained of central chest tightness prior to admission and B/L hand tremors. Pt required Bipap to maintain an adequate 02 saturation on arrival to ER. He reported he supposed to be on BiPAP machine at home, but did not use for a while Likely diastolic CHF exacerbation echo on record 02/17 does not specifically mention systolic or diastolic dysfunction and revealed a preserved EF. Continue IV lasix and we will obtain a repeat limited echo. Follow-up with cardiology input cont his B juan ramon. Continue follow-up cardiac enzyme and troponin Possible 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 raspberry failure which is supported by ABG studies with acidosis and he waited PCO2 Continue Bipap until he is adequately diuresed and can tolerate a NC. Severe COPD pt is completing a Prednisone taper and will cont Duonebs in addition to Advair. PAF - rhythm is sinus on admission Continue anticoagulated with Apixaban cont Amio, Toprol. drinks 3 beers daily Has counselled about risk and benefit of drinking alcohol, recommend to quit drinking Possible AK I due to acute CHF exacerbation will trend in AM Discussed with patient's answer all questions Full code - anticoagulated with Apixaban Continued [facility] stay due to: multiple IV medications needed Discharge planning: home
[2016-11-05 13:25] LABS: THYROID STIMULATING HORMONE 2.06 uIu/ml (0.300-4.500)
--- NOTE | 2016-11-05 18:10 | ECHOCARDIOGRAM REPORT ---
*NOTICE TO RECEIVING [employer] This information is strictly Confidential and protected under [place] law. [place] law prohibits you from making any further disclosure of this information unless further disclosure is expressly permitted by the written consent of the person to whom it pertains or is authorized by law. A general authorization for the release of medical or other information is not sufficient for this purpose. Hospital accepts no responsibility if the information is made available to any other person, INCLUDING THE PATIENT. Interpretation Summary * Name: JARED MOSQUERA Study Date: 11/05/2016 03:05 PM BP: 138/71 mmHg * Patient Location: .MED\S\N280\S\2 HR: 70 * : 1955 (M/d/yyyy) Gender: Male Height: 76 in * Age: 61 yrs Ethnicity: CA Weight: 262 lb * Ordering Physician: Bala Cantu * Performed By: Jessa Fofana RDCS * * Reason For Study: Congestive heart failure, shortness of breath * BSA: 2.5 m2 * -- Conclusions -- * 1. Normal LV size. Mild concentric LVH. * 2. Normal LV systolic function. LVEF 60-65%. Flattened septum consistent with RV volume overload. * 3. Severely dilated RV, borderline RV function * 4. Severely dilated RA. * 5. Dilated IVC suggestive of elevated CVP (15 mmHg). * 6. Compared with prior studies on 02/27/2016, 01/14/2015: No significant changes. Procedure Details * A complete two-dimensional transthoracic echocardiogram was performed (2D, M-mode, Doppler and color flow Doppler). Left Ventricle * The left ventricle is grossly normal size. * There is mild concentric left ventricular hypertrophy. * Ejection Fraction = 60-65%. * Flattened septum is consistent with RV volume overload. Right Ventricle * The right ventricle is severely dilated. * The right ventricular systolic function is borderline reduced. Atria * The left atrial size is normal. * The right atrium is severely dilated. * No ASD detected; PFO is not assessed. Mitral Valve * The mitral valve is grossly normal. * There is mild mitral annular calcification. * Mitral stenosis is absent. * There is trace mitral regurgitation. Tricuspid Valve * The tricuspid valve is not well visualized, but is grossly normal. * There is no tricuspid stenosis. * Significant tricuspid regurgitation is absent. Aortic Valve * The aortic valve opens well. * No hemodynamically significant valvular aortic stenosis. * There is no significant aortic regurgitation. Pulmonic Valve * The pulmonary valve is inadequately visualized, but the Doppler data is adequate for interpretation. * Pulmonic stenosis is absent. * There is no significant pulmonary regurgitation. Great Vessels * The aortic root and proximal ascending aorta are normal sized. * No Doppler or imaging evidence of an aortic coarctation. Pericardium/Pleural * There is no pericardial effusion. Great Vessels * Dilated inferior vena cava with reduced collapsability with sniff indicates an elevated right atrial pressure of 15 mmHg MMode 2D Measurements and Calculations IVSd 0.99 cm LVIDd 4.9 cm LVIDs 3.1 cm LVPWd 1.3 cm IVS/LVPW 0.79 FS 37.2 % EDV(Teich) 113.0 ml ESV(Teich) 37.3 ml EF(Teich) 67.0 % EDV(cubed) 117.8 ml ESV(cubed) 29.2 ml EF(cubed) 75.2 % LV mass(C)d 206.5 grams LV mass(C)dI 83.1 grams/m\S\2 CO(Teich) 4.5 l/min CI(Teich) 1.8 l/min/m\S\2 SV(Teich) 75.7 ml SI(Teich) 30.5 ml/m\S\2 CO(cubed) 5.3 l/min CI(cubed) 2.1 l/min/m\S\2 SV(cubed) 88.7 ml SI(cubed) 35.7 ml/m\S\2 Ao root diam 3.1 cm Ao root area 7.4 cm\S\2 ACS 1.9 cm LA dimension 3.9 cm LA/Ao 1.3 LVOT diam 2.0 cm LVOT area 3.1 cm\S\2 LVAd ap4 33.6 cm\S\2 LVLd ap4 8.7 cm EDV(MOD-sp4) 110.0 ml LVAs ap4 19.1 cm\S\2 LVLs ap4 7.0 cm ESV(MOD-sp4) 42.0 ml EF(MOD-sp4) 61.8 % LVAd ap2 28.8 cm\S\2 LVLd ap2 8.4 cm EDV(MOD-sp2) 81.0 ml LVAs ap2 15.7 cm\S\2 LVLs ap2 6.4 cm ESV(MOD-sp2) 32.0 ml EF(MOD-sp2) 60.5 % CO(MOD-sp4) 4.1 l/min CI(MOD-sp4) 1.6 l/min/m\S\2 SV(MOD-sp4) 68.0 ml SI(MOD-sp4) 27.4 ml/m\S\2 CO(MOD-sp2) 2.9 l/min CI(MOD-sp2) 1.2 l/min/m\S\2 SV(MOD-sp2) 49.0 ml SI(MOD-sp2) 19.7 ml/m\S\2 Doppler Measurements and Calculations MV E max roxanne 94.8 cm/sec MV A max roxanne 101.2 cm/sec MV E/A 0.94 MV dec time 0.35 sec Ao V2 max 164.4 cm/sec Ao max PG 10.8 mmHg Ao max PG (full) 4.5 mmHg UMU(V,A) 2.3 cm\S\2 UMU(V,D) 2.3 cm\S\2 LV V1 max PG 6.3 mmHg LV V1 max 125.4 cm/sec PA V2 max 114.0 cm/sec PA max PG 5.2 mmHg PA acc slope 442.1 cm/sec\S\2 PA acc time 0.14 sec TR max roxanne 286.0 cm/sec PA pr(Accel) 17.2 mmHg
[2016-11-05] MEDS: ALBUT/IPRATROP 3MG/0.5MG NEB 3 ML VIAL INH SCH (20:00)
[2016-11-05] MEDS: ZOLPIDEM TARTRATE 5 MG TAB PO PRN (21:38)
[2016-11-05] MEDS: SIMVASTATIN 40 MG TAB PO SCH (21:41)
[2016-11-05] MEDS: ACETAMINOPHEN 325 MG TAB PO PRN (21:50)
[2016-11-06] VITALS (17 sets, daily range): BP systolic 114–162; BP diastolic 51–80; PULSE 56–91; TEMP 36.1–36.8; O2SAT 90–98
[2016-11-06] MEDS: NITROGLYCERIN OINT 2% 1GM PACKET EXT SCH ×5 (00:18→23:31)
[2016-11-06 07:19] LABS: BUN/CREATININE RATIO 22.1 (10-20); CALCIUM 8.7 mg/dl (8.5-10.1); CREATININE 1.5 mg/dl (0.60-1.40); MAGNESIUM 1.8 mg/dl (1.8-2.4); POTASSIUM 4.4 mmol/L (3.5-5.1)
[2016-11-06] MEDS: ALBUT/IPRATROP 3MG/0.5MG NEB 3 ML VIAL INH SCH ×4 (07:35→19:06)
[2016-11-06] MEDS: CYANOCOBALAMIN 500 MCG TAB (VIT B-12) PO SCH (08:17)
[2016-11-06] MEDS: FUROSEMIDE INJ 40 MG in SYRINGE 0 ML IV SCH ×2 (08:18→20:35)
[2016-11-06] MEDS: PANTOprazole SOD 40 MG TAB PO SCH ×2 (08:18→20:37)
[2016-11-06] MEDS: APIXABAN 2.5 MG TAB PO SCH ×2 (08:18→20:36)
[2016-11-06] MEDS: AMIODARONE 200 MG TAB PO SCH ×2 (08:18→20:35)
[2016-11-06] MEDS: POTASSIUM CHLORIDE 20 MEQ TABCR PO SCH ×2 (08:18→20:36)
[2016-11-06] MEDS: METOPROLOL TARTRATE 50 MG TAB PO SCH ×3 (08:19→20:37)
[2016-11-06] MEDS: FLUTICASONE/SALMETEROL (ADVAIR) 500/50 INH 14 PUFF INH SCH ×2 (08:19→20:35)
--- NOTE | 2016-11-06 09:30 | Cardiology Consultation ---
Cardiology Consultation Date of Consultation: Nov 06, 2016. Requesting Physician: Dr. Cantu Reason for Consultation: Congestive heart failure Pt evaluation today including: conversation w/ patient, physical exam, lab review, review of studies, review of inpatient medication list History of Present Illness This is a 61-year-old gentleman with a history of mild carotid disease, COPD with cor pulmonale, long-standing tobacco and alcohol abuse who presented with near syncope and was observed to be in atrial fibrillation with a rapid ventricular response on December 10, 2010. He also had some chest heaviness when he presented with that arrhythmia. He was feeling poorly throughout most of that day, it is likely that the arrhythmia started that morning and it subsequently terminated spontaneously the same day in the hospital. Evaluation in the hospital included echocardiography and stress testing. The echocardiogram suggested right ventricular dysfunction, the stress test suggested ischemia in the LAD distribution. Based on lack of any anginal symptoms other than during the arrhythmia invasive evaluation has not been performed however he is being treated medically for atherosclerosis. He was discharged from the hospital on low dose beta blockade given his COPD. He had a recurrence of his arrhythmia in December of 2010 (based on symptoms) with some dizziness therefore we added digoxin to his regimen. On a dose of 0.25 mg daily he had a level of 2.0 therefore this was reduced at 0.125 mg daily. He presented to [facility] 01/13/2015 in atrial flutter with a rapid heart rate. Additionally he had a respiratory illness which may have contributed to the rapid heart rate. He also had a rapid wide complex tachycardia at about 250 bpm which was likely 1-1 conduction of his atrial flutter with aberrancy. He tolerated it reasonably well. He was treated with amiodarone for control of the arrhythmia and spontaneously converted to sinus rhythm. His amiodarone has been continued. He was started on Coumadin, however his INR was elevated at 4.6 on 01/28/2015 and this was discontinued and switched to Eliquis which was started on 02/07/2015. He Has been tolerating Eliquis well. Since starting amiodarone his rhythm has not been much of an issue, he has had no sensation of palpitations has had no lightheadedness, dizziness or presyncope. He is tolerating his amiodarone well. He is now admitted with progressive shortness of breath and peripheral edema consistent with volume overload. In review of his records it appears that his normal 40 mg daily Lasix dose was reduced in early October to 20 mg daily and then he began to develop fluid retention, subsequently was increased but he did not evidently have significant diuresis. Based on his weights however there does not seem to be a lot of change from that admission. He does seem to be trying to follow a fluid restriction at home although he may be drinking excessive fluid, he thinks his urine volume may have diminished somewhat recently. He did notice increase in leg swelling going back several weeks. Past Medical/Surgical History Medical Problems: (1) Atrial fibrillation with RVR Status: Resolved (2) Bilateral lower leg cellulitis Status: Resolved (3) CHF (congestive heart failure) Status: Chronic (4) COPD (chronic obstructive pulmonary disease) Status: Chronic 4l 02 (5) PNA (pneumonia) Status: Resolved (6) SIRS (systemic inflammatory response syndrome) Status: Resolved Family History Cancer Heart disease Hypertension Social History Smoking Status: Former Smoker History of Alcohol Use: Yes (4-5 BEERS A DAY) Review of Systems Constitutional: No fever, No weakness, No weight loss Respiratory: + shortness of breath, No cough, No dyspnea at rest, No dyspnea on exertion, No hemoptysis, No sputum, No wheezing Cardiac: + edema, No PND, No chest pain, No claudication, No orthopnea, No palpitations Abdomen: No GI bleeding, No diarrhea, No nausea, No pain, No vomiting Male : No nocturia more than once/night, No sexual dysfunction, No slowing stream, No urinary frequency Neurologic: No balance problems, No numbness/tingling, No paralysis, No weakness Heme: No abnormal bleeding/bruising, No clotting problems Endo: No fatigue Skin: No problem reported All Other Systems: Reviewed and Negative Allergies Coded Allergies: No Known Allergies (Unverified , 11/05/16) Medications Current Inpatient Medications Medications (Trade) Dose Ordered Sig/[place] Route Start Time Stop Time Status Last Admin Dose Admin Amiodarone HCl (Cordarone Tab) 200 mg BID PO 11/05/16 09:00 12/05/16 08:59 11/06/16 08:18 200 MG Cyanocobalamin (Vitamin B-12 Tab) 1,000 mcg DAILY PO 11/05/16 09:00 12/05/16 08:59 11/06/16 08:17 1,000 MCG Salmeterol Xinafoate/ Fluticasone (Advair Diskus 500/50 Inh) 1 puff BID INH 11/05/16 09:00 12/05/16 08:59 11/06/16 08:19 1 PUFF Folic Acid (Folvite Tab) 1 mg DAILY PO 11/05/16 09:00 12/05/16 08:59 11/06/16 08:18 1 MG Albuterol/ Ipratropium (Combivent Respimat Inh) 1 puffs QID PRN INH 11/05/16 06:15 12/05/16 06:14 Metoprolol Tartrate (Lopressor Tab) 50 mg TID PO 11/05/16 09:00 12/05/16 08:59 11/06/16 08:19 50 MG Prednisone (PredniSONE TAB) 10 mg DAILY PO 11/05/16 09:00 12/05/16 08:59 11/06/16 08:19 10 MG Simvastatin (Zocor Tab) 40 mg QPM PO 11/05/16 21:00 12/05/16 20:59 11/05/16 21:41 40 MG Apixaban (Eliquis Tab) 5 mg BID PO 11/05/16 09:15 12/05/16 09:14 11/06/16 08:18 5 MG Pantoprazole Sodium (Protonix Tab) 40 mg BID PO 11/05/16 09:15 12/05/16 09:14 11/06/16 08:18 40 MG Acetaminophen (Tylenol Tab) 650 mg Q4H PRN PO 11/05/16 06:15 12/05/16 06:14 11/05/16 21:50 650 MG Al Hydrox/Mg Hydrox/Simethicone (Maalox Max Susp) 15 ml Q4H PRN PO 11/05/16 06:15 12/05/16 06:14 Magnesium Hydroxide (Milk Of Magnesia Susp) 30 ml Q12H PRN PO 11/05/16 06:15 12/05/16 06:14 Zolpidem Tartrate (Ambien Tab) 5 mg HSZ PRN PO 11/05/16 06:15 12/05/16 06:14 11/05/16 21:38 5 MG Ondansetron HCl (Zofran Inj) 4 mg Q6H PRN IV 11/05/16 06:15 12/05/16 06:14 Nitroglycerin (Nitrostat Tab) 0.4 mg UD PRN SL 11/05/16 06:15 12/05/16 06:14 Nitroglycerin (Nitroglycerin 2% Oint) 1 inch Q6 EXT 11/05/16 09:15 12/05/16 09:14 11/06/16 05:58 1 INCH Morphine Sulfate (MoRPHine SULFATE INJ) 2 mg Q30M PRN IV 11/05/16 06:15 11/19/16 06:14 Polyethylene 17 gm 17 gm DAILY PRN PO 11/05/16 06:15 12/05/16 06:14 Furosemide/Syringe (Lasix Inj/ Syringe) 4 ml @ 4 mls/min BID IV 11/05/16 09:00 12/05/16 08:59 11/06/16 08:18 4 MLS/MIN Potassium Chloride (Klor-Con Tab) 10 meq BID PO 11/05/16 09:00 12/05/16 08:59 11/06/16 08:18 10 MEQ Albuterol/ Ipratropium (Duoneb) 1 ml BIDR INH 11/05/16 20:00 12/05/16 19:59 11/06/16 07:35 1 ML Physical Exam Vital Signs Past 12 Hours Date Time Temp Pulse Resp B/P Pulse Ox O2 Delivery O2 Flow Rate FiO2 11/06/16 07:47 36.3 62 22 114/66 91 Nasal Cannula 5.0 11/06/16 07:35 89 20 91 Nasal Cannula 6.0 11/06/16 04:00 36.5 91 16 141/69 91 Nasal Cannula 5.0 11/06/16 04:00 Nasal Cannula 5.0 11/06/16 00:05 Nasal Cannula 5.0 11/05/16 23:31 36.4 65 18 143/72 93 Nasal Cannula 6.0 Constitutional: General Apperance: heathly-appearing Level of Distress: NAD Psychiatric: Mental Status: active & alert Head: normocephalic Eyes: EOM: EOMI ENMT: normal ENT inspection, hearing grossly normal Neck: supple, no masses Lungs: Respiratory effort: no dyspnea, good air movement Auscultation: no wheezing, decreased breath sounds Cardiovascular: Heart Auscultation: RRR, no murmurs, no rubs, no gallops Peripheral Pulses: Bruits: none appreciated Abdomen: Bowel Sounds: normal Inspection & Palpation: soft, no tenderness, guarding & rebound, no masses Musculoskeletal: normal strength (5/5 throughout) Extremities: edema (+3 bilateral) Neurologic: Cranial Nerves: grossly intact Sensation: grossly intact Data Laboratory Results: Last 24 Hours Test 11/05/16 12:30 11/06/16 05:52 Troponin I 0.027 ng/ml Thyroid Stimulating Hormone (TSH) 2.060 uIu/ml Sodium Level 140 mmol/L Potassium Level 4.4 mmol/L Chloride Level 94 mmol/L Carbon Dioxide Level 40 mmol/L Anion Gap 6.0 mmol/L Blood Urea Nitrogen 33 mg/dl Creatinine 1.50 mg/dl Est Creatinine Clear Calc Drug Dose 71.5 ml/min Estimated GFR () 57.0 Estimated GFR (Non- 49.2 BUN/Creatinine Ratio 22.1 Random Glucose 90 mg/dl Calcium Level 8.7 mg/dl Magnesium Level 1.8 mg/dl Pro-B-Type Natriuretic Peptide 4229 pg/ml Imaging: An echocardiogram done 11/05/2016 shows normal left ventricular size with mild concentric left ventricular hypertrophy, normal systolic function. His right ventricle is severely dilated with borderline function and he has a severely dilated right atrium and IVC. The CVP is estimated at 15 mmHg. Similar to February 2016 and January 2015. EKG: An electrocardiogram done on admission demonstrates sinus rhythm with a sinus arrhythmia, what appears to be an old anteroseptal myocardial infarction and incomplete right bundle branch block. This is similar to prior electrocardiograms. Telemetry reviewed: Sinus rhythm, no significant abnormality Assessment & Plan #1. Congestive heart failure: He presents with worsening shortness of breath as well as peripheral edema consistent with left and right heart failure. His left ventricular systolic function however is normal, he may have left ventricular diastolic dysfunction (he does have mild left ventricular hypertrophy) causing his shortness of breath. He also has right ventricular dysfunction and elevated right-sided pressures would certainly contribute to his edema. There does not appear to be significant change in left ventricular or right ventricular function therefore his presentation is probably due to a positive fluid balance, in part probably due to excessive fluid intake, perhaps due to worsening renal function or lack of diuresis following reduction of his diuretic dose early October. I agree with diuresis watching his renal function. So far based on intake and output and his weight he has not diuresed appreciably , although he tells me that he feels better and that he has been urinating quite frequently since admission. #2. Paroxysmal atrial fibrillation and flutter: He has a long history of paroxysmal atrial fibrillation but also has documentation of atrial flutter with a rapid heart rate, including probable 1-1 conduction. I would continue the amiodarone at his current dose of 400 mg daily since his level was on the low side in the past on this dose. It does seem he working to control his atrial arrhythmia. I am going to get a level currently is has not had one for some time and I'm also going to check his liver function tests, although they could be elevated due to heart failure as well. He does need to continue anticoagulation is tolerating the Eliquis well. #3. Coronary artery disease: He is presumed to have coronary artery disease based on an abnormal stress test, however he does not have symptoms related to it at present. His last stress test, although not a very good test as he did not reach target HR, did not show ischemia. His cardiac enzymes have been normal so far. With normal LV function without wall motion abnormalities and normal cardiac enzymes I would not further investigate coronary disease at this time. #4. Cor pulmonale: His echos have demonstrated right heart dysfunction and cor pulmonale, this appears to be present on his current echocardiogram which is not appreciably different than the last several. There is little that can be done with this other than controlling his volume status. Hopefully with diuresis creatinine will not worsen, I don't believe his left ventricular preload is reduced currently although that may happen with diuresis resulting in a diminished cardiac output and worsening creatinine. I would however continue with diuresis and watch closely. Thank you for allowing me to participate in his care.
--- NOTE | 2016-11-06 10:34 | Progress Note ---
Subjective Date of Service: Nov 06, 2016. Subjective Pt evaluation today including: conversation w/ patient, conversation w/ family , physical exam, chart review, lab review, review of studies, conversation w/ senior science consultant, review of inpatient medication list Voiding: no voiding problems Off BiPAP machine, on 5 L/m [place] O2, was on 4 L/m at home, report some yellow sputum occasionally, is getting better, but in lower extremity still's warning , feeling generalized weakness and tired, eating and drinking okay, no difficulty in voiding, has no bowel movement Problem List Medical Problems: (1) Acute renal failure Status: Acute (2) Chest pressure Status: Acute (3) CHF (congestive heart failure) Status: Acute (4) CHF (congestive heart failure) Status: Chronic (5) COPD (chronic obstructive pulmonary disease) Status: Acute (6) COPD exacerbation Status: Acute (7) Hypokalemia Status: Acute (8) Hypoxia Status: Acute (9) SOB (shortness of breath) Status: Acute Review of Systems Constitutional: + fatigue, + weakness Eyes: No diplopia, No discharge, No eye pain, No redness, No worsening of vision ENT: No dental problems, No hearing loss, No nasal symptoms, No sore throat, No tinnitus, No trouble swallowing, No unusual epistaxis Respiratory: + cough, + shortness of breath, + wheezing, No dyspnea at rest, No dyspnea on exertion, No hemoptysis, No sputum Cardiac: + edema, No PND, No chest pain, No claudication, No orthopnea, No palpitations Abdomen: No constipation, No diarrhea, No nausea, No pain, No vomiting Musculoskeletal: + swelling, No calf pain, No joint pain, No muscle pain Male : No dysuria, No hematuria, No incontinence, No nocturia more than once/ night, No slowing stream, No urinary frequency Neurologic: No balance problems, No memory loss, No numbness/tingling, No paralysis, No vertigo, No weakness Psychiatric: No anhedonism, No anxiety, No depression symptoms, No insomnia, No substance abuse Heme: No abnormal bleeding/bruising, No clotting problems, No night sweats, No swollen lymph nodes Endo: No excessive thirst, No excessive urination, No fatigue Skin: No bleeding, No color change, No itch, No new/changing skin lesions, No rash Objective Vital Signs Date Time Temp Pulse Resp B/P Pulse Ox O2 Delivery O2 Flow Rate FiO2 11/06/16 08:00 92 Nasal Cannula 5.0 11/06/16 07:47 36.3 62 22 114/66 91 Nasal Cannula 5.0 11/06/16 07:35 89 20 91 Nasal Cannula 6.0 11/06/16 04:00 36.5 91 16 141/69 91 Nasal Cannula 5.0 11/06/16 04:00 Nasal Cannula 5.0 11/06/16 00:05 Nasal Cannula 5.0 11/05/16 23:31 36.4 65 18 143/72 93 Nasal Cannula 6.0 11/05/16 20:05 Nasal Cannula 5.0 11/05/16 19:31 36.8 57 18 119/65 91 Nasal Cannula 6.0 Humidified Oxygen 11/05/16 15:57 90 Nasal Cannula 5.0 11/05/16 15:52 36.8 63 18 104/55 90 Nasal Cannula 5.0 11/05/16 12:00 Nasal Cannula 6.0 11/05/16 11:20 36.8 70 22 138/71 90 Nasal Cannula 6.0 Physical Exam General Appearance: WD/WN, no apparent distress, + obese, + pertinent finding ( chronic ill-looking,) Eyes: normal inspection, PERRL, EOMI, sclerae normal, + pertinent finding ENT: normal ENT inspection, hearing grossly normal, pharynx normal Neck: supple, no adenopathy, thyroid normal, no JVD, no carotid bruits, trachea midline Respiratory/Chest: chest non-tender, normal breath sounds, no respiratory distress, no accessory muscle use, + decreased breath sounds, + wheezing, + pertinent finding (chest tight) Cardiovascular: regular rate, rhythm, no edema, no gallop, no JVD, no murmur Abdomen: normal bowel sounds, non tender, soft, no organomegaly, no pulsatile mass Extremities: normal range of motion, non-tender, normal inspection, no pedal edema, no calf tenderness, normal capillary refill, + calf tenderness (left, left lower extremity swelling 3+, right lower extremity swellinging 2+) Neurologic/Psychiatric: video recorder 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 II-XII nml as tested, no motor/sensory deficits, alert, normal mood/affect, oriented x 3 Skin: normal color, warm/dry, no rash Lymphatic: no adenopathy Laboratory Results Last 24 Hours Test 11/05/16 12:30 11/06/16 05:52 11/06/16 09:29 Troponin I 0.027 ng/ml Thyroid Stimulating Hormone (TSH) 2.060 uIu/ml Sodium Level 140 mmol/L Potassium Level 4.4 mmol/L Chloride Level 94 mmol/L Carbon Dioxide Level 40 mmol/L Anion Gap 6.0 mmol/L Blood Urea Nitrogen 33 mg/dl Creatinine 1.50 mg/dl Est Creatinine Clear Calc Drug Dose 71.5 ml/min Estimated GFR () 57.0 Estimated GFR (Non- 49.2 BUN/Creatinine Ratio 22.1 Random Glucose 90 mg/dl Calcium Level 8.7 mg/dl Magnesium Level 1.8 mg/dl Pro-B-Type Natriuretic Peptide 4229 pg/ml Assessment and Plan 61 y/o M admitted because of dyspnea on exertion, progressively getting worse, CHF and copd exacerbation on 11/05/2016 Hx of advanced COPD, PAF and diastolic CHF. Pt was recently admitted for COPD and pneumonia. he presents to the emergency known with progressive SOB limiting any activity. Also complained of central chest tightness prior to admission and B/L hand tremors. Pt required Bipap to maintain an adequate 02 saturation on arrival to ER. He reported he supposed to be on BiPAP machine at home, but did not use for a while Worsening sob and dyspnea on exertion likely from combined to CHF and COPD exacerbation is a little bit better Likely diastolic CHF exacerbation: Stable, echo on record 02/17 does not specifically mention systolic or diastolic dysfunction and revealed a preserved EF. Has been on IV lasix , and beta juan ramon, no JOSE inhibitor because of chronic kidney disease creatinine 1.5 Follow-up with cardiology input There is no obvious negative urine output, however BMP decreased from 5779 to 4 229, and his oxygenation is possible better, which is supported from he need less hours of BiPAP support Has ordered fluid restriction, input and output, counseling about the importance of fluid restriction, and 2 g sodium diet and the important now medicine compliance Has ordered to CHF education package Possible 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 raspberry failure and COPD exacerbation which is supported by ABG studies with acidosis and he raised PCO2 upon admission History of COPD and tobacco abuse disorder, was having chronic respirator failure home O2 dependent prior to the admission Little improving Continue Bipap and nighttime, continue NCO 2 Will continue nebulizer treatment every 6 hours and every 2 hours as needed, Will add Solu-Medrol to a hour Will follow-up outreach team member input PAF - rhythm is sinus on admission, continue to stable Continue anticoagulated with Apixaban cont Amio, Toprol. Possible heavy alcohol intake with drinks 3 beers daily, Has counselled about risk and benefit of drinking alcohol, recommend to quit drinking Stable patient has no sign of alcohol withdrawal now Possible acute kidney injury on chronic kidney disease stage III due to acute CHF exacerbation upon admission Creatinine is 1.5 compared to yesterday 1.5 Stable will follow-up Discussed with patient's answer all questions Full code anticoagulated with Apixaban Continued [facility] stay due to: multiple IV medications needed Discharge planning: home
[2016-11-06] MEDS: METHYLPREDNISOLONE IV 80 MG in SYRINGE 0 ML IV SCH ×2 (10:39→18:24)
[2016-11-06] MEDS: ACETAMINOPHEN 325 MG TAB PO PRN ×2 (10:40→21:57)
[2016-11-06] MEDS: SIMVASTATIN 40 MG TAB PO SCH (20:37)
[2016-11-06] MEDS ORDERED: NURSING VERBAL MED ORDER ONE (23:45)
[2016-11-06] MEDS ORDERED: KETOROLAC TROMETHAMINE 15 MG/ML VIAL ONE (23:54)
[2016-11-07] VITALS (17 sets, daily range): BP systolic 102–147; BP diastolic 46–68; PULSE 56–84; TEMP 36.4–36.8; O2SAT 91–97
[2016-11-07] MEDS: METHYLPREDNISOLONE IV 80 MG in SYRINGE 0 ML IV SCH ×3 (01:56→20:50)
[2016-11-07] MEDS: NITROGLYCERIN OINT 2% 1GM PACKET EXT SCH ×3 (05:49→18:03)
[2016-11-07 06:27] LABS: HEMATOCRIT 36.8 % (42-52); IG% 0.4 %; LYMPH % 3.5 %; LYMPH ABS # 0.18 K/uL (1.2-3.4); MEAN CELL VOLUME 111.5 fL (80-100); MEAN CORPUSCULAR HEMOGLOBIN 33.9 pg (25-34); MEAN CORPUSCULAR HGB CONC 30.4 g/dl (32-36); MEAN PLATELET VOLUME 9.7 fL (7.4-10.4); NEUT % 94.1 %; PLATELET COUNT 201 K/uL (130-400); WHITE BLOOD COUNT 5.08 K/uL (4.8-10.8)
[2016-11-07 06:57] LABS: COMPLETE YES; POLYCHROMASIA 1+
[2016-11-07 07:24] LABS: BUN/CREATININE RATIO 22.9 (10-20); CALCIUM 8.7 mg/dl (8.5-10.1); CREATININE 1.5 mg/dl (0.60-1.40); POTASSIUM 4.7 mmol/L (3.5-5.1)
[2016-11-07] MEDS: ALBUT/IPRATROP 3MG/0.5MG NEB 3 ML VIAL INH SCH ×4 (07:26→19:06)
[2016-11-07] MEDS: FLUTICASONE/SALMETEROL (ADVAIR) 500/50 INH 14 PUFF INH SCH ×2 (08:46→20:48)
[2016-11-07] MEDS: FUROSEMIDE INJ 40 MG in SYRINGE 0 ML IV SCH ×2 (08:47→20:49)
[2016-11-07] MEDS: CYANOCOBALAMIN 500 MCG TAB (VIT B-12) PO SCH (08:47)
[2016-11-07] MEDS: METOPROLOL TARTRATE 50 MG TAB PO SCH ×3 (08:50→20:53)
[2016-11-07] MEDS: AMIODARONE 200 MG TAB PO SCH ×2 (08:50→20:51)
[2016-11-07] MEDS: PANTOprazole SOD 40 MG TAB PO SCH ×2 (08:50→20:53)
[2016-11-07] MEDS: APIXABAN 2.5 MG TAB PO SCH ×2 (08:50→20:52)
--- NOTE | 2016-11-07 09:53 | Progress Note ---
Subjective Date of Service: Nov 07, 2016. Subjective Pt evaluation today including: conversation w/ patient, physical exam, chart review, lab review, review of studies, conversation w/ media consultant, review of inpatient medication list Voiding: no voiding problems Feeling a little better in sob, still on nasal cannula oxygen 5 L/m, generally feeling better, complaining about left lower extremity swelling, which is not new. His report has ruled out DVT prior to this admission on 10/31 Doppler studies with pcp, there was a hx of left ankle sprain history, currently still have some pain, Has good urine output, has no bowel movement for 2 days, Has been out of bed to the rest known with some help Problem List Medical Problems: (1) Acute renal failure Status: Acute (2) Chest pressure Status: Acute (3) CHF (congestive heart failure) Status: Acute (4) CHF (congestive heart failure) Status: Chronic (5) COPD (chronic obstructive pulmonary disease) Status: Acute (6) COPD exacerbation Status: Acute (7) Hypokalemia Status: Acute (8) Hypoxia Status: Acute (9) SOB (shortness of breath) Status: Acute Review of Systems Constitutional: + fatigue, + weakness, No chills, No fever, No problem reported , No sweats, No weight loss Eyes: No diplopia, No discharge, No eye pain, No redness, No worsening of vision ENT: No dental problems, No hearing loss, No nasal symptoms, No sore throat, No tinnitus, No trouble swallowing, No unusual epistaxis Respiratory: No cough, No dyspnea at rest, No dyspnea on exertion, No hemoptysis, No shortness of breath, No sputum, No wheezing Cardiac: + edema, No PND, No chest pain, No claudication, No orthopnea, No palpitations Abdomen: + constipation, No diarrhea, No nausea, No pain, No vomiting Musculoskeletal: + joint pain, No calf pain, No muscle pain, No swelling Male : No dysuria, No hematuria, No incontinence, No nocturia more than once/ night, No slowing stream, No urinary frequency Neurologic: No balance problems, No memory loss, No numbness/tingling, No paralysis, No vertigo, No weakness Psychiatric: No anhedonism, No anxiety, No depression symptoms, No insomnia, No substance abuse Heme: No abnormal bleeding/bruising, No clotting problems, No night sweats, No swollen lymph nodes Endo: No excessive thirst, No excessive urination, No fatigue Skin: No bleeding, No color change, No itch, No new/changing skin lesions, No rash Objective Vital Signs Date Time Temp Pulse Resp B/P Pulse Ox O2 Delivery O2 Flow Rate FiO2 11/07/16 07:33 36.7 61 18 133/67 91 11/07/16 07:26 72 16 91 Nasal Cannula 5.0 11/07/16 05:49 57 119/58 11/07/16 05:00 36.6 64 20 102/46 92 Nasal Cannula 5.0 11/07/16 04:00 Nasal Cannula 5.0 11/07/16 00:10 Nasal Cannula 5.0 11/06/16 23:58 36.5 68 20 116/51 95 Nasal Cannula 5.0 11/06/16 23:24 36.5 68 20 116/51 95 Nasal Cannula 5.0 11/06/16 20:41 63 144/73 90 Nasal Cannula 5.0 11/06/16 20:00 90 Nasal Cannula 6.0 11/06/16 19:57 36.1 62 20 162/80 98 Nasal Cannula 5.0 11/06/16 19:06 61 16 91 Nasal Cannula 5.0 11/06/16 18:25 147/71 11/06/16 16:12 85 16 91 Nasal Cannula 6.0 11/06/16 16:00 90 Nasal Cannula 6.0 11/06/16 15:10 36.7 61 22 118/58 92 Nasal Cannula 5.0 11/06/16 14:06 36.8 60 20 118/63 94 Nasal Cannula 5.0 11/06/16 12:00 92 Nasal Cannula 5.0 11/06/16 11:23 36.4 56 22 114/64 92 Nasal Cannula 5.0 11/06/16 11:23 86 18 91 Nasal Cannula 6.0 Physical Exam General Appearance: WD/WN, no apparent distress, + obese Eyes: normal inspection, PERRL, EOMI, sclerae normal, + pertinent finding (on nasal cannula oxygen) ENT: normal ENT inspection, hearing grossly normal, pharynx normal Neck: supple, no adenopathy, thyroid normal, no JVD, no carotid bruits, trachea midline Respiratory/Chest: chest non-tender, normal breath sounds, no respiratory distress, no accessory muscle use, + decreased breath sounds, + wheezing (seems a little better than yesterday) Cardiovascular: regular rate, rhythm, no edema, no gallop, no JVD, no murmur Abdomen: normal bowel sounds, non tender, soft, no organomegaly, no pulsatile mass Extremities: normal range of motion, non-tender, normal inspection, no pedal edema, no calf tenderness, normal capillary refill, pelvis stable, + swelling ( in left lower extremity obvious compared to right lower extremity, there was no local red /hot , or open wound, left posterior ankle mild tender when palpation) Neurologic/Psychiatric: service 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 II-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 nml as tested, no motor/sensory deficits, alert, normal mood/affect, oriented x 3 Skin: normal color, warm/dry, no rash Lymphatic: no adenopathy Laboratory Results Last 24 Hours Test 11/06/16 10:25 11/07/16 05:31 Total Bilirubin 1.2 mg/dl Direct Bilirubin 0.6 mg/dl Aspartate Amino Transf (AST/SGOT) 55 U/L Alanine Aminotransferase (ALT/SGPT) 41 U/L Alkaline Phosphatase 119 U/L Total Protein 6.4 gm/dl Albumin 3.0 gm/dl White Blood Count 5.08 K/uL Red Blood Count 3.30 M/uL Hemoglobin 11.2 g/dL Hematocrit 36.8 % Mean Corpuscular Volume 111.5 fL Mean Corpuscular Hemoglobin 33.9 pg Mean Corpuscular Hemoglobin Concent 30.4 g/dl Platelet Count 201 K/uL Mean Platelet Volume 9.7 fL Neutrophils (%) (Auto) 94.1 % Lymphocytes (%) (Auto) 3.5 % Monocytes (%) (Auto) 2.0 % Eosinophils (%) (Auto) 0.0 % Basophils (%) (Auto) 0.0 % Neutrophils # (Auto) 4.78 K/uL Lymphocytes # (Auto) 0.18 K/uL Monocytes # (Auto) 0.10 K/uL Eosinophils # (Auto) 0.00 K/uL Basophils # (Auto) 0.00 K/uL RDW Standard Deviation 62.3 fL RDW Coefficient of Variation 15.5 % Immature Granulocyte % (Auto) 0.4 % Immature Granulocyte # (Auto) 0.02 K/uL Polychromasia 1+ Basophilic Stippling 1+ Macrocytosis PRESENT Sodium Level 143 mmol/L Potassium Level 4.7 mmol/L Chloride Level 95 mmol/L Carbon Dioxide Level 42 mmol/L Anion Gap 6.0 mmol/L Blood Urea Nitrogen 34 mg/dl Creatinine 1.50 mg/dl Est Creatinine Clear Calc Drug Dose 71.7 ml/min Estimated GFR () 57.0 Estimated GFR (Non- 49.2 BUN/Creatinine Ratio 22.9 Random Glucose 151 mg/dl Calcium Level 8.7 mg/dl Magnesium Level 2.0 mg/dl Assessment and Plan 61 y/o M admitted because of dyspnea on exertion, progressively getting worse, CHF and copd exacerbation on 11/05/2016 Hx of advanced COPD, PAF and diastolic CHF. Pt was recently admitted for COPD and pneumonia. he presents to the emergency known with progressive SOB limiting any activity. Also complained of central chest tightness prior to admission and B/L hand tremors. Pt required Bipap to maintain an adequate 02 saturation on arrival to ER. He reported he supposed to be on BiPAP machine at home, but did not use for a while Worsening sob and dyspnea on exertion likely from combined to CHF and COPD exacerbation upon admission: Improving slowly Acute on chronic diastolic CHF exacerbation: Stable/improved Echo in this admission shows diastolic dysfunction No obvious neck you output, he is even gaining weight Has been on IV lasix , and beta juan ramon, no JOSE inhibitor because of chronic kidney disease creatinine , today's creatinine is 1.6 Cardiology on the case Continue fluid restriction, input and output, counseling about the importance of fluid restriction, and 2 g sodium diet and the important now medicine compliance Has ordered to CHF education package Possible 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 raspberry failure and COPD exacerbation and Cor pulmonale: History of COPD and tobacco abuse disorder, was having chronic respirator failure home O2 dependent prior to the admission Little improving, today is better, which is supported of better talking and less wheezing BMP shows an elevated bicarbonate mild, possible alkalosis from diuretic, we'll continue current dose of diuretic, follow-up Continue Bipap and nighttime, continue NCO 2 new echo reviewed: it is not different than the last echo Will continue nebulizer treatment every 6 hours and every 2 hours as needed, Continue Solu-Medrol Follow-up oil agent input -Left Lower extremity swelling, etiology unknown, has ruled out DVT prior to this admission, which was done on 10/31/2016 I don't think I need to repeat doppler , he is on Apixaban for stroke prevention, which will also help for the treatment of DVT, therefore the management possible no difference but single left lower extremity swelling and edema needs to have further evaluation and treatment ,I will request vascular surgeon consult PAF: Currently is NSR, stable Continue anticoagulated with Apixaban cont Amio, Toprol. Possible heavy alcohol intake with drinks 3 beers daily, stable Has counselled about risk and benefit of drinking alcohol, recommend to quit drinking Stable patient has no sign of alcohol withdrawal now Possible acute kidney injury on chronic kidney disease stage III due to acute CHF exacerbation upon admission Creatinine is 1.6 compared to yesterday 1.5 Stable will follow-up Encourage out of bed and walk and PT OT Full code anticoagulated with Apixaban Continued [facility] stay due to: multiple IV medications needed Discharge planning: home
[2016-11-07] MEDS ORDERED: METOLAZONE 5 MG TAB PO SCH (10:30)
[2016-11-07] MEDS: POTASSIUM CHLORIDE 20 MEQ TABCR PO SCH ×2 (11:32→20:53)
[2016-11-07] MEDS: TRAMADOL HCL 50 MG TAB PO PRN ×2 (14:07→20:48)
--- NOTE | 2016-11-07 14:07 | Surgery Consultation ---
Consultation Date of Service Nov 07, 2016. Chief Complaint LLE edema History of Present Illness The patient is a 61 year old male with complicated medical hx, including CHF, CAD, HTN, COPD, venous insufficiency, seen in consultation today for edema of LLE which has been worse than usual over past 2 weeks. Pt states he had a near fall at home 2 weeks ago and noted pain in his posterior ankle and calf. States edema appeared worse the following day. Pt on eliquis chronically. States he usually takes good care of his legs, keeping them moisturized and wearing knee high compression daily. His PCP sent him for an US to r/o DVT which was neg. Admits RAO, chronic cough, orthopnea. Denies [facility], fever, chills , chest pain, abd pain, N/V, rest pain, claudication, other complaints. Vitals Vital Signs Past 12 Hours Date Time Temp Pulse Resp B/P Pulse Ox O2 Delivery O2 Flow Rate FiO2 11/07/16 11:40 62 18 94 Nasal Cannula 5.0 11/07/16 11:18 36.4 83 20 136/68 97 Nasal Cannula 5.0 11/07/16 08:00 93 Nasal Cannula 5.0 11/07/16 07:33 36.7 61 18 133/67 91 11/07/16 07:26 72 16 91 Nasal Cannula 5.0 11/07/16 05:49 57 119/58 11/07/16 05:00 36.6 64 20 102/46 92 Nasal Cannula 5.0 11/07/16 04:00 Nasal Cannula 5.0 Allergies Coded Allergies: No Known Allergies (Unverified , 11/05/16) Home Medications Scheduled Amiodarone Hcl (Cordarone), 200 MG PO BID Apixaban (Eliquis), 5 MG PO BID Cyanocobalamin (Vitamin B-12), 1,000 MCG PO DAILY Fluticasone Prop/Salmeterol (Advair Diskus 500/50 60 Dose), 1 PUFF INH BID Folic Acid (Folvite), 1 MG PO DAILY Furosemide (Lasix), 40 MG PO DAILY Ipratropium-Albuterol (Duoneb), 1 TREATMENT INH BID Metoprolol Tartrate (Lopressor) (Lopressor), 50 MG PO TID Omeprazole (Prilosec), 20 MG PO BID Prednisone Tab (Prednisone), 10 MG PO DIRECTED Simvastatin (Simvastatin), 40 MG PO QPM Scheduled PRN Ipratropium-Albuterol (Combivent Respimat), 1 PUFFS INH QID PRN for SOB/Wheezing Problem List Medical Problems: (1) Acute renal insufficiency (2) Atrial fibrillation with RVR (3) Bilateral lower leg cellulitis (4) CHF (congestive heart failure) (5) CHF exacerbation (6) COPD (chronic obstructive pulmonary disease) (7) Hyponatremia (8) PNA (pneumonia) (9) SIRS (systemic inflammatory response syndrome) Surgical / Medical History Hx Cardiac Surgery: No Hx Abdominal Surgery: Yes (UMBILICAL HERNIA) Hx Cancer Surgery: No Hx Thoracic Surgery: No Hx Orthopedic: No Hx Urinary Tract Surgery: No HX Other Surgery: No Past Medical/Surgical History: CHF, COPD, Heart Disease, High Cholesterol, Hypertension Family History Cancer Heart disease Hypertension Social History Smoking Status: Former Smoker Hx Tobacco Use In Past Year?: No Hx Alcohol Use - Type & Amnt: Yes (4-5 BEERS A DAY) Hx Substance Use -Type & Amnt: No Review of Systems Constitutional: + malaise, No chills, No fever Skin: No change in color Eyes: No visual changes ENMT: No sore throat Respiratory: + RAO, + cough, + orthopnea, + short of breath, No hemoptysis Cardiovascular: No chest pain, No palpitations, No syncope Gastrointestinal: No abdominal pain, No nausea, No vomiting Neurologic: No dizziness, No headache, No lethargy, No numbness, No tingling Physical Exam Constitutional: General Apperance: well-nourished, well-developed, obese Level of Distress: NAD, chronically ill Psychiatric: Mental Status: active & alert, normal mood, normal affect Orientation: oriented except where noted, to time, to place, to person Memory: recent memory normal, remote memory normal Head: normocephalic, atraumatic Eyes: EOM: EOMI ENMT: normal ENT inspection, hearing grossly normal Neck: supple, trachea midline Lungs: Respiratory effort: no dyspnea Auscultation: no wheezing, decreased breath sounds, wet rales/crackles ( basilar) Cardiovascular: Apical Impulse: not displaced Heart Auscultation: no rubs, no gallops Peripheral Pulses: Pulses: full and equal, in all extremities except if noted Bruits: none appreciated Carotid Pulse: normal on the left, normal on the right Brachial Pulses: normal on the left, normal on the right Radial Pulse: normal on the left, normal on the right Femoral Pulse: normal on the left, normal on the right Posterior Tibialis Pulse: decreased on the left, decreased on the right Dorsalis Pedis Pulse: decreased on the left, decreased on the right Abdomen: Bowel Sounds: normal Inspection & Palpation: soft, non-distended, no tenderness, guarding & rebound Musculoskeletal: normal strength (5/5 throughout), normal tone Extremities: Upper Right: no cyanosis, no edema, no varicosities Upper Left: no cyanosis, no edema, no varicosities Lower Right: no cyanosis, no palpable cord, no clubbing, no ulcers, no mottling, edema Lower Left: no cyanosis, no clubbing, no ulcers, no mottling, edema, varicosities, pertinent finding (skin changes to BLE consistent with chronic venous insufficiency and varicose veins. Large ecchymotic area to posterior L proximal and mid calf. + tender to touch, no erythema. ) Neurologic: Cranial Nerves: grossly intact Sensation: grossly intact Assessment and Plan ASSESSMENT and PLAN: L calf ecchymosis/injury Chronic venous insufficiency Pt has large ecchymotic area to posterior calf, likely from the near fall/ injury 2 weeks ago. In addition, he has chronic venous insufficiency which he treats at home appropriately with compression. Recommend continue compression. If pt continues to have severe pain with ambulation, recommend orthopedic eval. Please call if needed.
--- NOTE | 2016-11-07 15:20 | Cardiology Follow-Up ---
Subjective Date of Service: Nov 07, 2016. Pt evaluation today including: conversation w/ patient, physical exam, lab review, review of studies, review of inpatient medication list History of Present Illness This is a 61-year-old gentleman with a history of mild carotid disease, COPD with cor pulmonale, long-standing tobacco and alcohol abuse who presented with near syncope and was observed to be in atrial fibrillation with a rapid ventricular response on December 10, 2010. He also had some chest heaviness when he presented with that arrhythmia. He was feeling poorly throughout most of that day, it is likely that the arrhythmia started that morning and it subsequently terminated spontaneously the same day in the hospital. Evaluation in the hospital included echocardiography and stress testing. The echocardiogram suggested right ventricular dysfunction, the stress test suggested ischemia in the LAD distribution. Based on lack of any anginal symptoms other than during the arrhythmia invasive evaluation has not been performed however he is being treated medically for atherosclerosis. He was discharged from the hospital on low dose beta blockade given his COPD. He had a recurrence of his arrhythmia in December of 2010 (based on symptoms) with some dizziness therefore we added digoxin to his regimen. On a dose of 0.25 mg daily he had a level of 2.0 therefore this was reduced at 0.125 mg daily. He presented to [facility] 01/13/2015 in atrial flutter with a rapid heart rate. Additionally he had a respiratory illness which may have contributed to the rapid heart rate. He also had a rapid wide complex tachycardia at about 250 bpm which was likely 1-1 conduction of his atrial flutter with aberrancy. He tolerated it reasonably well. He was treated with amiodarone for control of the arrhythmia and spontaneously converted to sinus rhythm. His amiodarone has been continued. He was started on Coumadin, however his INR was elevated at 4.6 on 01/28/2015 and this was discontinued and switched to Eliquis which was started on 02/07/2015. He Has been tolerating Eliquis well. Since starting amiodarone his rhythm has not been much of an issue, he has had no sensation of palpitations has had no lightheadedness, dizziness or presyncope. He is tolerating his amiodarone well. He is now admitted with progressive shortness of breath and peripheral edema consistent with volume overload. In review of his records it appears that his normal 40 mg daily Lasix dose was reduced in early October to 20 mg daily and then he began to develop fluid retention, subsequently was increased but he did not evidently have significant diuresis. He did notice increase in leg swelling going back several weeks. Today he feels relatively well, he observed that there is not been much change in his legs over the last day or so and he does not think his urine output has changed a lot over the last day. He is not having shortness of breath. Social History Smoking Status: Former Smoker History of Alcohol Use: Yes (4-5 BEERS A DAY) Review of Systems Respiratory: No cough, No dyspnea at rest, No dyspnea on exertion, No hemoptysis, No shortness of breath, No sputum, No wheezing Cardiac: + edema, No PND, No chest pain, No claudication, No orthopnea, No palpitations Medications Cardiovascular: Item Value Date Time Simvastatin 40 mg 11/05/16 2100 (Zocor Tab) QPM/PO 11/06/16 2037 Apixaban 5 mg 11/05/16 0915 (Eliquis Tab) BID/PO 11/07/16 0850 Amiodarone HCl 200 mg 11/05/16 0900 (Cordarone Tab) BID/PO 11/07/16 0850 Metoprolol 50 mg 11/05/16 0900 Tartrate TID/PO 11/07/16 1408 (Lopressor Tab) Furosemide 40 mg/ 4 ml @ 4 mls/min 11/05/16 0900 Syringe BID/IV 11/07/16 0847 Potassium Chloride 10 meq 11/05/16 0900 (Klor-Con Tab) BID/PO 11/07/16 1132 Objective Vital Signs Past 12 Hours Date Time Temp Pulse Resp B/P Pulse Ox O2 Delivery O2 Flow Rate FiO2 11/07/16 14:42 36.8 64 20 121/63 96 11/07/16 12:00 93 Nasal Cannula 5.0 11/07/16 11:40 62 18 94 Nasal Cannula 5.0 11/07/16 11:18 36.4 83 20 136/68 97 Nasal Cannula 5.0 11/07/16 08:00 93 Nasal Cannula 5.0 11/07/16 07:33 36.7 61 18 133/67 91 11/07/16 07:26 72 16 91 Nasal Cannula 5.0 11/07/16 05:49 57 119/58 2/3/17 05:00 36.6 64 20 102/46 92 Nasal Cannula 5.0 11/07/16 04:00 Nasal Cannula 5.0 Last Recorded Weight-Kilograms: 118.000 Intake & Output 8-Hour Column 11/06/16 11/06/16 11/07/16 15:59 23:59 07:59 Intake Total 620 ml 540 ml Output Total 700 ml 300 ml Balance -80 ml 540 ml -300 ml 24-Hour Column 11/07/16 07:59 Intake Total 1160 ml Output Total 1000 ml Balance 160 ml Physical Exam Constitutional: General Apperance: well-nourished, well-developed, obese Level of Distress: NAD, chronically ill Lungs: Respiratory effort: no dyspnea Auscultation: no wheezing, decreased breath sounds Cardiovascular: Apical Impulse: not displaced Heart Auscultation: RRR, no murmurs, no rubs, no gallops Peripheral Pulses: Bruits: none appreciated Carotid Pulse: normal on the left, normal on the right Radial Pulse: normal on the left, normal on the right Femoral Pulse: normal on the left, normal on the right Dorsalis Pedis Pulse: decreased on the left, decreased on the right Extremities: edema (+3 bilateral) Data Laboratory Results: Last 24 Hours Test 11/07/16 05:31 White Blood Count 5.08 K/uL Red Blood Count 3.30 M/uL Hemoglobin 11.2 g/dL Hematocrit 36.8 % Mean Corpuscular Volume 111.5 fL Mean Corpuscular Hemoglobin 33.9 pg Mean Corpuscular Hemoglobin Concent 30.4 g/dl Platelet Count 201 K/uL Mean Platelet Volume 9.7 fL Neutrophils (%) (Auto) 94.1 % Lymphocytes (%) (Auto) 3.5 % Monocytes (%) (Auto) 2.0 % Eosinophils (%) (Auto) 0.0 % Basophils (%) (Auto) 0.0 % Neutrophils # (Auto) 4.78 K/uL Lymphocytes # (Auto) 0.18 K/uL Monocytes # (Auto) 0.10 K/uL Eosinophils # (Auto) 0.00 K/uL Basophils # (Auto) 0.00 K/uL RDW Standard Deviation 62.3 fL RDW Coefficient of Variation 15.5 % Immature Granulocyte % (Auto) 0.4 % Immature Granulocyte # (Auto) 0.02 K/uL Polychromasia 1+ Basophilic Stippling 1+ Macrocytosis PRESENT Sodium Level 143 mmol/L Potassium Level 4.7 mmol/L Chloride Level 95 mmol/L Carbon Dioxide Level 42 mmol/L Anion Gap 6.0 mmol/L Blood Urea Nitrogen 34 mg/dl Creatinine 1.50 mg/dl Est Creatinine Clear Calc Drug Dose 71.7 ml/min Estimated GFR () 57.0 Estimated GFR (Non- 49.2 BUN/Creatinine Ratio 22.9 Random Glucose 151 mg/dl Calcium Level 8.7 mg/dl Magnesium Level 2.0 mg/dl Assessment and Plan #1. Congestive heart failure: He presents with worsening shortness of breath as well as peripheral edema consistent with left and right heart failure. His left ventricular systolic function however is normal, he may have left ventricular diastolic dysfunction (he does have mild left ventricular hypertrophy) causing his shortness of breath. He also has right ventricular dysfunction and elevated right-sided pressures would certainly contribute to his edema. There does not appear to be significant change in left ventricular or right ventricular function therefore his presentation is probably due to a positive fluid balance, in part probably due to excessive fluid intake, perhaps due to worsening renal function or lack of diuresis following reduction of his diuretic dose early October. I agree with diuresis watching his renal function. So far based on intake and output and his weight he has not diuresed appreciably , although he tells me that he feels better and that he has been urinating quite frequently since admission. I think we have to increase his diuretic regimen, especially when he goes home. I'm going to start Zaroxolyn daily here and perhaps should be sent home with a when necessary dose. I did discuss daily weights and when necessary diuretics with him at some length yesterday. #2. Paroxysmal atrial fibrillation and flutter: He has a long history of paroxysmal atrial fibrillation but also has documentation of atrial flutter with a rapid heart rate, including probable 1-1 conduction. I would continue the amiodarone at his current dose of 400 mg daily since his level was on the low side in the past on this dose. It does seem he working to control his atrial arrhythmia. I ordered and amiodarone level which is pending. I did obtain liver function tests which are minimally elevated, I suspect a lot of the elevation may be due to passive congestion from his heart failure but even if it is the amiodarone they're minimally elevated and not adjust hison the liver function tests. He does need to continue anticoagulation and is tolerating the Eliquis well. #3. Coronary artery disease: He is presumed to have coronary artery disease based on an abnormal stress test, however he does not have symptoms related to it at present. His last stress test, although not a very good test as he did not reach target HR, did not show ischemia. His cardiac enzymes have been normal so far. With normal LV function without wall motion abnormalities and normal cardiac enzymes I would not further investigate coronary disease at this time. #4. Cor pulmonale: His echos have demonstrated right heart dysfunction and cor pulmonale, this appears to be present on his current echocardiogram which is not appreciably different than the last several. There is little that can be done with this other than controlling his volume status. Hopefully with diuresis creatinine will not worsen, I don't believe his left ventricular preload is reduced currently although that may happen with diuresis resulting in a diminished cardiac output and worsening creatinine. I would however continue with diuresis and watch closely. Thank you for allowing me to participate in his care.
[2016-11-07] MEDS ORDERED: METOLAZONE 5 MG TAB PO ONE (20:30)
[2016-11-07] MEDS: SIMVASTATIN 40 MG TAB PO SCH (20:54)
[2016-11-07] MEDS: ZOLPIDEM TARTRATE 5 MG TAB PO PRN (22:38)
[2016-11-07 23:31] LABS: AMIODARONE 1.7 mcg/mL (1.5-2.5); DESMETHYLAMIODARONE 1.8 mcg/mL (1.5-2.5)
[2016-11-08] VITALS (12 sets, daily range): BP systolic 125–154; BP diastolic 56–76; PULSE 57–63; TEMP 36.2–36.5; O2SAT 90–96
[2016-11-08] MEDS: NITROGLYCERIN OINT 2% 1GM PACKET EXT SCH ×4 (00:12→17:11)
[2016-11-08 06:55] LABS: BUN/CREATININE RATIO 26.9 (10-20); CALCIUM 8.7 mg/dl (8.5-10.1); CREATININE 1.4 mg/dl (0.60-1.40); POTASSIUM 4.7 mmol/L (3.5-5.1)
[2016-11-08] MEDS: ALBUT/IPRATROP 3MG/0.5MG NEB 3 ML VIAL INH SCH ×4 (07:16→19:01)
[2016-11-08] MEDS: METOLAZONE 5 MG TAB PO SCH (08:11)
[2016-11-08] MEDS: TRAMADOL HCL 50 MG TAB PO PRN ×3 (08:11→19:45)
[2016-11-08] MEDS: APIXABAN 2.5 MG TAB PO SCH ×2 (08:12→19:46)
[2016-11-08] MEDS: CYANOCOBALAMIN 500 MCG TAB (VIT B-12) PO SCH (08:12)
[2016-11-08] MEDS: METOPROLOL TARTRATE 50 MG TAB PO SCH ×3 (08:13→19:47)
[2016-11-08] MEDS: POTASSIUM CHLORIDE 20 MEQ TABCR PO SCH ×2 (08:14→19:47)
[2016-11-08] MEDS: PANTOprazole SOD 40 MG TAB PO SCH ×2 (08:15→19:46)
[2016-11-08] MEDS: FLUTICASONE/SALMETEROL (ADVAIR) 500/50 INH 14 PUFF INH SCH ×2 (08:15→19:45)
[2016-11-08] MEDS: AMIODARONE 200 MG TAB PO SCH ×2 (08:15→19:46)
[2016-11-08] MEDS: FUROSEMIDE INJ 40 MG in SYRINGE 0 ML IV SCH ×2 (08:47→19:45)
[2016-11-08] MEDS: METHYLPREDNISOLONE IV 80 MG in SYRINGE 0 ML IV SCH (08:47)
--- NOTE | 2016-11-08 10:06 | Progress Note ---
Subjective Date of Service: Nov 08, 2016. Subjective Pt evaluation today including: conversation w/ patient, conversation w/ family , physical exam, chart review, lab review, review of studies, conversation w/ cosmetic consultant, review of inpatient medication list Voiding: elizabeth catheter in place Patient refuse BiPAP, however Feeling better, especially lower back and left lower extremity, feeling less swollen, no more left lower extremity pain, has good urine output, eating and stool is good Problem List Medical Problems: (1) Acute renal failure Status: Acute (2) Chest pressure Status: Acute (3) CHF (congestive heart failure) Status: Acute (4) CHF (congestive heart failure) Status: Chronic (5) COPD (chronic obstructive pulmonary disease) Status: Acute (6) COPD exacerbation Status: Acute (7) Hypokalemia Status: Acute (8) Hypoxia Status: Acute (9) SOB (shortness of breath) Status: Acute Review of Systems Constitutional: + fatigue, + weakness, No chills, No fever, No problem reported , No sweats, No weight loss Eyes: No diplopia, No discharge, No eye pain, No redness, No worsening of vision ENT: No dental problems, No hearing loss, No nasal symptoms, No sore throat, No tinnitus, No trouble swallowing, No unusual epistaxis Respiratory: + shortness of breath, No cough, No dyspnea at rest, No dyspnea on exertion, No hemoptysis, No sputum, No wheezing Cardiac: No PND, No chest pain, No claudication, No edema, No orthopnea, No palpitations Abdomen: No constipation, No diarrhea, No nausea, No pain, No vomiting Musculoskeletal: + swelling (left lower extremity swelling is 2+ now, is better and then yesterday, bluish behind left lknee, no local tenderness), No calf pain, No joint pain, No muscle pain Male : No dysuria, No hematuria, No incontinence, No nocturia more than once/ night, No slowing stream, No urinary frequency Neurologic: No balance problems, No memory loss, No numbness/tingling, No paralysis, No vertigo, No weakness Psychiatric: No anhedonism, No anxiety, No depression symptoms, No insomnia, No substance abuse Heme: No abnormal bleeding/bruising, No clotting problems, No night sweats, No swollen lymph nodes Endo: No excessive thirst, No excessive urination, No fatigue Skin: No bleeding, No color change, No itch, No new/changing skin lesions, No rash Objective Vital Signs Date Time Temp Pulse Resp B/P Pulse Ox O2 Delivery O2 Flow Rate FiO2 11/08/16 07:18 36.2 59 16 138/65 93 Nasal Cannula 5.0 11/08/16 07:17 62 18 90 Nasal Cannula 5.0 11/08/16 04:26 36.3 62 20 125/56 91 Nasal Cannula 5.0 11/08/16 04:00 Nasal Cannula 5.0 11/08/16 00:00 Nasal Cannula 5.0 11/07/16 23:15 36.5 62 20 139/67 91 11/07/16 20:38 64 147/68 92 Nasal Cannula 5.0 11/07/16 20:00 96 Nasal Cannula 5.0 11/07/16 19:38 36.8 56 20 120/68 91 Nasal Cannula 4.0 11/07/16 19:06 84 18 93 Nasal Cannula 5.0 11/07/16 18:01 63 131/64 11/07/16 16:04 64 18 94 Nasal Cannula 5.0 11/07/16 16:00 96 Nasal Cannula 5.0 11/07/16 14:42 36.8 64 20 121/63 96 11/07/16 12:00 93 Nasal Cannula 5.0 11/07/16 11:40 62 18 94 Nasal Cannula 5.0 11/07/16 11:18 36.4 83 20 136/68 97 Nasal Cannula 5.0 Physical Exam General Appearance: WD/WN, no apparent distress, + obese Eyes: normal inspection, PERRL, EOMI, sclerae normal ENT: normal ENT inspection, hearing grossly normal, pharynx normal Neck: supple, no adenopathy, thyroid normal, no JVD, no carotid bruits, trachea midline Respiratory/Chest: chest non-tender, lungs clear, normal breath sounds, no respiratory distress, no accessory muscle use, + decreased breath sounds Cardiovascular: regular rate, rhythm, no edema, no gallop, no JVD, no murmur Abdomen: normal bowel sounds, non tender, soft, no organomegaly, no pulsatile mass Extremities: normal range of motion, non-tender, normal inspection, no pedal edema, no calf tenderness, normal capillary refill, pelvis stable, + swelling ( left lower extremity 2+ swelling, right lower extremity 1+ swelling, ) Neurologic/Psychiatric: harness inspector II-XII nml as tested, no motor/sensory deficits, alert, normal mood/affect, oriented x 3 Skin: normal color, warm/dry, no rash Lymphatic: no adenopathy Laboratory Results Last 24 Hours Test 11/08/16 05:15 Sodium Level 141 mmol/L Potassium Level 4.7 mmol/L Chloride Level 93 mmol/L Carbon Dioxide Level 44 mmol/L Anion Gap 4.0 mmol/L Blood Urea Nitrogen 38 mg/dl Creatinine 1.40 mg/dl Est Creatinine Clear Calc Drug Dose 76.8 ml/min Estimated GFR () 62.0 Estimated GFR (Non- 53.5 BUN/Creatinine Ratio 26.9 Random Glucose 129 mg/dl Calcium Level 8.7 mg/dl Magnesium Level 2.0 mg/dl Assessment and Plan 61 y/o M admitted because of dyspnea on exertion, progressively getting worse, CHF and copd exacerbation on 11/05/2016 Hx of advanced COPD, PAF and diastolic CHF. Pt was recently admitted for COPD and pneumonia. he presents to the emergency known with progressive SOB limiting any activity. Also complained of central chest tightness prior to admission and B/L hand tremors. Pt required Bipap to maintain an adequate 02 saturation on arrival to ER. He reported he supposed to be on BiPAP machine at home, but did not use for a while combined to CHF and COPD exacerbation upon admission: Continue Improving slowly Acute on chronic diastolic CHF exacerbation: Stable/continue improving Echo in this admission shows diastolic dysfunction Negative output 2 L in 2 days Has been on IV lasix , and beta juan ramon, no JOSE inhibitor because of chronic kidney disease creatinine , today's creatinine is improved, is in 1.2 from 1.6 Cardiology on the case, add Zaroxolyn from 11/07/2016 Improve negative output and renal function likely the combined effect of Lasix and Zaroxolyn, will continue Worsening alkalosis likely from the diuretic, adding Diamox 250 by mouth twice a day for 2 days only Continue fluid restriction, input and output, counseling about the importance of fluid restriction, and 2 g sodium diet and the important now medicine compliance Has ordered to CHF education package new echo reviewed: it is not different than the last echo Possible 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 raspberry failure and COPD exacerbation and Cor pulmonale: Stable and improving History of COPD and tobacco abuse disorder, was having chronic respirator failure home O2 dependent prior to the admission continue NCO 2, possible is approaching to baseline Will continue nebulizer treatment every 6 hours and every 2 hours as needed, Continue Solu-Medrol Floral Designer consulted but not seen yet, will remind him to see -Left Lower extremity swelling, etiology unknown, Improves has ruled out DVT prior to this admission, which was done on 10/31/2016 I don't think I need to repeat doppler , he is on Apixaban for stroke prevention, which will also help for the treatment of DVT, therefore the management possible no difference but single left lower extremity swelling and edema needs to have further evaluation and treatment vascular surgeon consulted, no any further evaluation, recommend compression stockings, which was ordered PAF: Currently is NSR, stable Continue anticoagulated with Apixaban cont Amio, Toprol. Possible heavy alcohol intake with drinks 3 beers daily, stable Has counselled about risk and benefit of drinking alcohol, recommend to quit drinking Stable patient has no sign of alcohol withdrawal now Possible acute kidney injury on chronic kidney disease stage III due to acute CHF exacerbation upon admission See above, improves after diuretic Stable will follow-up Encourage out of bed and walk and PT OT Possible discharge in day 1 or 2 Full code anticoagulated with Apixaban Continued [facility] stay due to: multiple IV medications needed Discharge planning: home
--- NOTE | 2016-11-08 11:00 | Cardiology Follow-Up ---
Subjective Date of Service: Nov 08, 2016. Pt evaluation today including: conversation w/ patient, physical exam, lab review, review of studies, review of inpatient medication list History of Present Illness This is a 61-year-old gentleman with a history of mild carotid disease, COPD with cor pulmonale, long-standing tobacco and alcohol abuse who presented with near syncope and was observed to be in atrial fibrillation with a rapid ventricular response on December 10, 2010. He also had some chest heaviness when he presented with that arrhythmia. He was feeling poorly throughout most of that day, it is likely that the arrhythmia started that morning and it subsequently terminated spontaneously the same day in the hospital. Evaluation in the hospital included echocardiography and stress testing. The echocardiogram suggested right ventricular dysfunction, the stress test suggested ischemia in the LAD distribution. Based on lack of any anginal symptoms other than during the arrhythmia invasive evaluation has not been performed however he is being treated medically for atherosclerosis. He was discharged from the hospital on low dose beta blockade given his COPD. He had a recurrence of his arrhythmia in December of 2010 (based on symptoms) with some dizziness therefore we added digoxin to his regimen. On a dose of 0.25 mg daily he had a level of 2.0 therefore this was reduced at 0.125 mg daily. He presented to [facility] 01/13/2015 in atrial flutter with a rapid heart rate. Additionally he had a respiratory illness which may have contributed to the rapid heart rate. He also had a rapid wide complex tachycardia at about 250 bpm which was likely 1-1 conduction of his atrial flutter with aberrancy. He tolerated it reasonably well. He was treated with amiodarone for control of the arrhythmia and spontaneously converted to sinus rhythm. His amiodarone has been continued. He was started on Coumadin, however his INR was elevated at 4.6 on 01/28/2015 and this was discontinued and switched to Eliquis which was started on 02/07/2015. He Has been tolerating Eliquis well. Since starting amiodarone his rhythm has not been much of an issue, he has had no sensation of palpitations has had no lightheadedness, dizziness or presyncope. He is tolerating his amiodarone well. He is now admitted with progressive shortness of breath and peripheral edema consistent with volume overload. In review of his records it appears that his normal 40 mg daily Lasix dose was reduced in early October to 20 mg daily and then he began to develop fluid retention, subsequently was increased but he did not evidently have significant diuresis. He did notice increase in leg swelling going back several weeks. He did not seem to be diuresing very well therefore I added Zaroxolyn to his regimen. He feels that he has improved significantly, he feels that his swelling is down and his breathing is much better. He does not seem to get out of bed very much. Social History Smoking Status: Former Smoker History of Alcohol Use: Yes (4-5 BEERS A DAY) Review of Systems Respiratory: + shortness of breath, No cough, No dyspnea at rest, No dyspnea on exertion, No hemoptysis, No sputum, No wheezing Cardiac: No PND, No chest pain, No claudication, No edema, No orthopnea, No palpitations Medications Cardiovascular: Item Value Date Time Acetazolamide 250 mg 11/08/16 2100 (Diamox Tab) BID/PO Metolazone 5 mg 11/08/16 0830 (Zaroxolyn Tab) DAILY@0830/PO 11/08/16 0811 Simvastatin 40 mg 11/05/16 2100 (Zocor Tab) QPM/PO 11/07/16 2054 Apixaban 5 mg 11/05/16 0915 (Eliquis Tab) BID/PO 11/08/16 0812 Amiodarone HCl 200 mg 11/05/16 0900 (Cordarone Tab) BID/PO 11/08/16 0815 Metoprolol 50 mg 11/05/16 0900 Tartrate TID/PO (Lopressor Tab) Furosemide 40 mg/ 4 ml @ 4 mls/min 11/05/16 0900 Syringe BID/IV 11/08/16 0847 Potassium Chloride 10 meq 11/05/16 0900 (Klor-Con Tab) BID/PO 11/08/16 0814 Objective Vital Signs Past 12 Hours Date Time Temp Pulse Resp B/P Pulse Ox O2 Delivery O2 Flow Rate FiO2 11/08/16 07:18 36.2 59 16 138/65 93 Nasal Cannula 5.0 11/08/16 07:17 62 18 90 Nasal Cannula 5.0 11/08/16 04:26 36.3 62 20 125/56 91 Nasal Cannula 5.0 11/08/16 04:00 Nasal Cannula 5.0 11/08/16 00:00 Nasal Cannula 5.0 11/07/16 23:15 36.5 62 20 139/67 91 Last Recorded Weight-Kilograms: 118.200 Intake & Output 8-Hour Column 11/07/16 11/08/16 11/08/16 16:00 00:00 08:00 Intake Total 480 ml 640 ml 100 ml Output Total 300 ml 600 ml 1350 ml Balance 180 ml 40 ml -1250 ml 24-Hour Column 11/08/16 08:00 Intake Total 1220 ml Output Total 2250 ml Balance -1030 ml Physical Exam Constitutional: General Apperance: well-nourished, well-developed, obese Level of Distress: NAD, chronically ill Lungs: Respiratory effort: no dyspnea Auscultation: no wheezing, decreased breath sounds Cardiovascular: Apical Impulse: not displaced Heart Auscultation: RRR, no murmurs, no rubs, no gallops Peripheral Pulses: Bruits: none appreciated Carotid Pulse: normal on the left, normal on the right Radial Pulse: normal on the left, normal on the right Femoral Pulse: normal on the left, normal on the right Dorsalis Pedis Pulse: decreased on the left, decreased on the right Extremities: edema (+2 bilateral) Data Laboratory Results: Last 24 Hours Test 11/08/16 05:15 Sodium Level 141 mmol/L Potassium Level 4.7 mmol/L Chloride Level 93 mmol/L Carbon Dioxide Level 44 mmol/L Anion Gap 4.0 mmol/L Blood Urea Nitrogen 38 mg/dl Creatinine 1.40 mg/dl Est Creatinine Clear Calc Drug Dose 76.8 ml/min Estimated GFR () 62.0 Estimated GFR (Non- 53.5 BUN/Creatinine Ratio 26.9 Random Glucose 129 mg/dl Calcium Level 8.7 mg/dl Magnesium Level 2.0 mg/dl Telemetry reviewed: Sinus rhythm with occasional pacing, well-controlled heart rate Assessment and Plan #1. Congestive heart failure: He presents with worsening shortness of breath as well as peripheral edema consistent with left and right heart failure. His left ventricular systolic function however is normal, he may have left ventricular diastolic dysfunction (he does have mild left ventricular hypertrophy) causing his shortness of breath. He also has right ventricular dysfunction and elevated right-sided pressures would certainly contribute to his edema. There does not appear to be significant change in left ventricular or right ventricular function therefore his presentation is probably due to a positive fluid balance, in part probably due to excessive fluid intake, perhaps due to worsening renal function or lack of diuresis following reduction of his diuretic dose early October. I agree with diuresis watching his renal function. So far based on intake and output and his weight he has not diuresed appreciably , in fact his weight has steadily increased (although they were different scales involved including a bed scale) and his I&O has not been appreciably negative but I believe is quite incomplete. He tells me that he feels better and that he has been urinating quite frequently since admission and he does not believe that his weight is not decreasing. He does seem to be better clinically and I am disinclined to increase his diuretics. I think we should watch him for another day or 2 and make sure that he is on the right track. #2. Paroxysmal atrial fibrillation and flutter: He has a long history of paroxysmal atrial fibrillation but also has documentation of atrial flutter with a rapid heart rate, including probable 1-1 conduction. I would continue the amiodarone at his current dose of 400 mg daily since his level is acceptable on this dose. It does seem he working to control his atrial arrhythmia.. I did obtain liver function tests several days ago which were minimally elevated, I suspect a lot of the elevation may be due to passive congestion from his heart failure but even if it is the amiodarone they're minimally elevated and I would not adjust the dose based on the liver function tests. I am going to repeat them however now that his volume status appears to be improved. He does need to continue anticoagulation and is tolerating the Eliquis well. #3. Coronary artery disease: He is presumed to have coronary artery disease based on an abnormal stress test, however he does not have symptoms related to it at present. His last stress test, although not a very good test as he did not reach target HR, did not show ischemia. His cardiac enzymes have been normal so far. With normal LV function without wall motion abnormalities and normal cardiac enzymes I would not further investigate coronary disease at this time. #4. Cor pulmonale: His echos have demonstrated right heart dysfunction and cor pulmonale, this appears to be present on his current echocardiogram which is not appreciably different than the last several. There is little that can be done with this other than controlling his volume status. Hopefully with diuresis creatinine will not worsen, I don't believe his left ventricular preload is reduced currently although that may happen with diuresis resulting in a diminished cardiac output and worsening creatinine. So far his creatinine is unchanged or slightly improved. I would however continue with diuresis and watch closely. Thank you for allowing me to participate in his care.
--- NOTE | 2016-11-08 14:39 | Pulmonary Consultation ---
History General Date of Service: Nov 08, 2016. Stated Complaint: Chf Exacerbation HPI The patient is a 61 year old male who presents to [facility] with complaints of Chf Exacerbation. The patient's primary care provider is Luis Azevedo M.D.. 61-year-old male admitted through the [facility] emergency room on November. He is a past medical history is significant for very severe COPD (FEV1 : 27%), paroxysmal atrial fibrillation and diastolic heart failure. He was recently admitted to the [facility] from October 07 through the 2016 for acute on chronic hypercapnic/hypoxic respiratory failure. Pulmonary consultation by Dr. Ok Ruiz noted right lower lobe pneumonia, respiratory failure(acute on chronic hypoxemia/hypercarbia), obstructive sleep apnea but intolerance to CPAP and BiPAP as well as renal insufficiency with diastolic heart failure. For this admission on there 2016 he was noted to be in acute respiratory insufficiency noting: Dyspnea at rest, chest tightness initially and bilateral hand tremors. He was noted be hypoxic on arrival and has been treated with antibiotics, diuresis and supplemental oxygen. The patients is at the bedside and they both note he is much improved. He still notes dyspnea with exertion, not back to his baseline and intermittent nonproductive cough. He denies chest pain, pleurisy, vertigo, rhinitis, productive cough or hemoptysis. 1)Cardiac Echo (11/05/16) compared to 02/27/16 as well as 01/14/2015 no significant changes noted a.LV: LVH, EF=60-65%, flattened septum b.RV: severely dilated c.RA: Severe dilation d.Dilated IVC Work-up: 1)AB.32/81/43/42 with SaO2 of 72%--possible venous blood gas 2)Serum bicarbonate: 39>44 3)BUN: 2938 4)Cr: 1.50---1.40 5)Pro BNP: 4229 on 11/06/16 6)EK10/05/2016: Poor quality wandering baseline: Does appear to be sinus rhythm no acute signs of ischemia 7)Chest x-ray to 10/24/16: Hilar fullness with cephalization parabronchial cuffing bilaterally no pleural effusions noted Treatment: #1 diuresis: Overall diuresis 1.3L #2 Acetazolamide 250mg BID #3 Zaroxolyn 5 mg by mouth daily #4 Methylprednisolone 80 mg IV every 12hrs #5 nebs 4 times per day #6 Eliquis 5 mg by mouth twice a day #7 Advair Diskus 500/50 twice a day Historian: patient, partner, caregiver, EMS Review of Systems Constitutional: reports: weakness Eyes: reports: no symptoms ENT: reports: no symptoms Cardiovascular: reports: no symptoms Respiratory: reports: RAO, cough Gastrointestinal: reports: no symptoms Genitourinary - Male: reports: no symptoms Musculoskeletal: reports: myalgias Integumentary: reports: no symptoms Neurologic: reports: no symptoms Psychiatric: reports: no symptoms Endocrine: no symptoms Hematologic / Lymphatic: no symptoms Allergic / Immunologic: no symptoms Past Medical History Past Medical History: (1) Acute renal insufficiency (2) Atrial fibrillation with RVR (3) Bilateral lower leg cellulitis (4) CHF (congestive heart failure) (5) CHF exacerbation -LVEF: 60-65% (6) Very Severe COPD -O2 dependent: 2 L at rest 4 L with exertion -FEV1: 1.15/27% -FEV1/FVC: 43 -Advair 500/50 -Cor pulmonale (7) Hyponatremia (8) PNA (pneumonia) (9) SIRS (systemic inflammatory response syndrome) (10) MARK-untreated (11) tobacco dependence (12) alcohol abuse Past Surgical History: no surgical history Family History Cancer Heart disease Hypertension Social History Hx Tobacco Use In Past Year?: No Smoking Status: Former Smoker Marital status: Housing status: lives with significant other Occupational Status: employed Immunizations History of Influenza Vaccine: Yes History of Tetanus Vaccine?: Yes History of Pneumococcal: Yes History of Hepatitis B Vaccine: No History of MDRO History of MDRO: No Allergies Coded Allergies: No Known Allergies (Unverified , 11/05/16) Current Medications Reported Home Medications Medications Dose Route/Sig Max Daily Dose Days Date Category Dose Instructions Prednisone 10 Mg Tab 10 Mg PO DIRECTED 11/05/16 Reported take with food. start 10/13/16 take 5 tabs day 1-3, then 4 tabs day 4-5, then 3 tabs day 6-7, 2 tabs 8-9, 1 tab 10-11 then stop Folvite (Folic Acid) 1 Mg Tab 1 Mg PO DAILY 11/05/16 Reported Vitamin B-12 (Cyanocobalamin) 1,000 Mcg Tab 1,000 Mcg PO DAILY 11/05/16 Reported Duoneb (Ipratropium-Albuterol) 3 Ml Nebu 1 Treatment INH BID 10/25/16 Reported Lasix (Furosemide) 20 Mg Tab 40 Mg PO DAILY 10/07/16 Reported Eliquis (Apixaban) 5 Mg Tab 5 Mg PO BID 02/27/16 Reported Lopressor (Metoprolol Tartrate) 50 Mg Tab 50 Mg PO TID 02/27/16 Reported Cordarone (Amiodarone Hcl) 200 Mg Tab 200 Mg PO BID 02/27/16 Reported Advair Diskus 500/50 60 Dose (Fluticasone Prop/Salmeterol) 1 Ea Aerp 1 Puff INH BID 02/27/16 Reported Combivent Respimat (Ipratropium-Albuterol) 1 Aer Aer 1 Puffs INH QID PRN 02/27/16 Reported Prilosec (Omeprazole) 20 Mg Cap 20 Mg PO BID 01/13/15 Reported Simvastatin 40 Mg Tab 40 Mg PO QPM 01/13/15 Reported Physical Physical Exam Vital Signs: Date Time Temp Pulse Resp B/P Pulse Ox O2 Delivery O2 Flow Rate FiO2 11/08/16 11:18 36.4 61 16 128/63 96 Room Air 11/08/16 11:11 62 18 94 Nasal Cannula 5.0 11/08/16 08:00 93 Nasal Cannula 5.0 11/08/16 07:18 36.2 59 16 138/65 93 Nasal Cannula 5.0 11/08/16 07:17 62 18 90 Nasal Cannula 5.0 11/08/16 04:26 36.3 62 20 125/56 91 Nasal Cannula 5.0 11/08/16 04:00 Nasal Cannula 5.0 11/08/16 00:00 Nasal Cannula 5.0 11/07/16 23:15 36.5 62 20 139/67 91 11/07/16 20:38 64 147/68 92 Nasal Cannula 5.0 11/07/16 20:00 96 Nasal Cannula 5.0 11/07/16 19:38 36.8 56 20 120/68 91 Nasal Cannula 4.0 11/07/16 19:06 84 18 93 Nasal Cannula 5.0 11/07/16 18:01 63 131/64 11/07/16 16:04 64 18 94 Nasal Cannula 5.0 11/07/16 16:00 96 Nasal Cannula 5.0 11/07/16 14:42 36.8 64 20 121/63 96 General Appearance: mild distress Head: NORMOCEPHALIC, ATRAUMATIC Eyes: PERRLA, NO DISCHARGE, EOMI ENT: NORMAL EAR EXAM, NORMAL NASAL EXAM, NORMAL MOUTH EXAM, NORMAL THROAT EXAM , NORMAL DENTAL EXAM Neck: NORMAL RANGE OF MOTION, NO TENDERNESS, TRACHEA MIDLINE, other (no JVD noted) Respiratory: other (decreased breath sounds bilaterally with minimal expiratory rhonchi appreciated\) Cardiovasular: other (irregular rate and rhythm distant heart sounds unable to auscultate for murmurs rubs or gallops) Abdomen: NON TENDER, NORMAL BOWEL SOUNDS, NO REBOUND, NO MASSES, NO GUARDING, NO ORGANOMEGALY Genitourinary - Male: EXTERNAL GENITALIA NORMAL Back: NORMAL INSPECTION, NO MIDLINE TENDERNESS, NO CVA TENDERNESS, NO PARAVERTEBRAL TTP Upper Extremities: NO EDEMA Lower Extremities: other (bilateral lower extremity edema right-sided 1+ with left-sided 3+) Pulses: carotid (R) (1+), carotid (L) (1+), dorsalis pedis (R) (1+), dorsalis pedis (L) (0) Neuro: ALERT, ORIENTED x 3, NORMAL MOTOR EXAM, NORMAL SENSATION Reflexes: biceps (R) (2+), bicpes (L) (2+) Babinski Testing: right (downgoing), left (equivocal) Psychiatric: NORMAL AFFECT, NO SUICIDAL IDEATION, CONTRACTS FOR SAFETY Diagnostics Labs Results Past 24 Hours Test 11/08/16 05:15 Range/Units Sodium Level 141 136-145 mmol/L Potassium Level 4.7 3.5-5.1 mmol/L Chloride Level 93 98-107 mmol/L Carbon Dioxide Level 44 21-32 mmol/L Anion Gap 4.0 3-11 mmol/L Blood Urea Nitrogen 38 7-18 mg/dl Creatinine 1.40 0.60-1.40 mg/dl Est Creatinine Clear Calc Drug Dose 76.8 ml/min Estimated GFR () 62.0 Estimated GFR (Non- 53.5 BUN/Creatinine Ratio 26.9 10-20 Random Glucose 129 70-99 mg/dl Calcium Level 8.7 8.5-10.1 mg/dl Magnesium Level 2.0 1.8-2.4 mg/dl Diagnostic Radiology Chest x-ray to 10/24/16: Hilar fullness with cephalization parabronchial cuffing bilaterally no pleural effusions noted EKG EK10/05/2016: Poor quality wandering baseline: Does appear to be sinus rhythm no acute signs of ischemia Impression Assessment and Plan 61-year-old male admitted for acute on chronic respiratory insufficiency/failure : #1 Hypoxia: Patient's hypoxia is a combination of very severe COPD with an FEV1 of 27%, cor pulmonale and left ventricular diastolic dysfunction. Most prominent portions of his hypoxia most likely his COPD and cor pulmonale. It does appear at this time the patient is having severe right ventricular dysfunctioning causing increasing left ventricular diastolic dysfunction. Agree with the current plan on continuing oxygen support and diuresis. -Steroids: At this time I suggest we dropped his methylprednisolone from 80 mg to 60 mg every 12. -Diamox: As patient's bicarbonate is rising I do agree with 2-3 days worth of Diamox but patient's ABG did note chronic acidosis which could be exacerbated with prolonged Diamox use, we'll have to monitor electrolytes closely -I's and O's: Patient's physical exam as well as labs to suggest he's had a proper diuresis. We should be careful the next 24-48 hours and monitor his renal function as well as preload requirements. -COPD: Continue current COPD regimen should discuss initiation of Spiriva prior to discharge -Cor pulmonale: Once the patient is stabilized and can be discharged we can discuss the possibility right heart catheterization with evaluation of left ventricular end-diastolic pressures for possible out of proportion pulmonary hypertension with initiation of medications for group 1 pulmonary hypertension. This is a very aggressive maneuver improper pressure monitoring must be performed prior to initiation of any medications. #2 MARK: Patient is intolerant of CPAP/BiPAP refuses to wear.
[2016-11-08] MEDS: AcetaZOLAMIDE 250 MG TAB PO SCH (17:16)
[2016-11-08] MEDS: METHYLPREDNISOLONE IV 60 MG in SYRINGE 0 ML IV SCH (19:45)
[2016-11-08] MEDS: SIMVASTATIN 40 MG TAB PO SCH (19:47)
[2016-11-08] MEDS: ZOLPIDEM TARTRATE 5 MG TAB PO PRN (22:01)
[2016-11-09] VITALS (15 sets, daily range): BP systolic 130–162; BP diastolic 64–89; PULSE 55–77; TEMP 36.3–36.7; O2SAT 93–96
[2016-11-09] MEDS: NITROGLYCERIN OINT 2% 1GM PACKET EXT SCH ×5 (00:14→23:46)
[2016-11-09 06:11] LABS: BUN/CREATININE RATIO 34.6 (10-20); CREATININE 1.4 mg/dl (0.60-1.40); MAGNESIUM 2.4 mg/dl (1.8-2.4); POTASSIUM 4.1 mmol/L (3.5-5.1)
[2016-11-09] MEDS: ALBUT/IPRATROP 3MG/0.5MG NEB 3 ML VIAL INH SCH ×4 (07:12→18:58)
[2016-11-09] MEDS: METOLAZONE 5 MG TAB PO SCH (08:04)
[2016-11-09] MEDS: METHYLPREDNISOLONE IV 60 MG in SYRINGE 0 ML IV SCH ×2 (09:01→20:33)
[2016-11-09] MEDS: FUROSEMIDE INJ 40 MG in SYRINGE 0 ML IV SCH ×2 (09:01→20:33)
[2016-11-09] MEDS: APIXABAN 2.5 MG TAB PO SCH ×2 (09:02→20:33)
[2016-11-09] MEDS: PANTOprazole SOD 40 MG TAB PO SCH ×2 (09:02→20:34)
[2016-11-09] MEDS: POTASSIUM CHLORIDE 20 MEQ TABCR PO SCH ×2 (09:03→20:34)
[2016-11-09] MEDS: CYANOCOBALAMIN 500 MCG TAB (VIT B-12) PO SCH (09:04)
[2016-11-09] MEDS: METOPROLOL TARTRATE 50 MG TAB PO SCH ×3 (09:05→20:29)
[2016-11-09] MEDS: AMIODARONE 200 MG TAB PO SCH ×2 (09:05→20:33)
[2016-11-09] MEDS: AcetaZOLAMIDE 250 MG TAB PO SCH ×2 (09:05→17:32)
[2016-11-09] MEDS: FLUTICASONE/SALMETEROL (ADVAIR) 500/50 INH 14 PUFF INH SCH ×2 (09:06→20:32)
[2016-11-09] MEDS: TRAMADOL HCL 50 MG TAB PO PRN ×2 (09:10→19:54)
--- NOTE | 2016-11-09 09:54 | Cardiology Follow-Up ---
Subjective Date of Service: Nov 09, 2016. Pt evaluation today including: conversation w/ patient, physical exam, lab review, review of studies, review of inpatient medication list History of Present Illness This is a 61-year-old gentleman with a history of mild carotid disease, COPD with cor pulmonale, long-standing tobacco and alcohol abuse who presented with near syncope and was observed to be in atrial fibrillation with a rapid ventricular response on December 10, 2010. He also had some chest heaviness when he presented with that arrhythmia. He was feeling poorly throughout most of that day, it is likely that the arrhythmia started that morning and it subsequently terminated spontaneously the same day in the hospital. Evaluation in the hospital included echocardiography and stress testing. The echocardiogram suggested right ventricular dysfunction, the stress test suggested ischemia in the LAD distribution. Based on lack of any anginal symptoms other than during the arrhythmia invasive evaluation has not been performed however he is being treated medically for atherosclerosis. He was discharged from the hospital on low dose beta blockade given his COPD. He had a recurrence of his arrhythmia in December of 2010 (based on symptoms) with some dizziness therefore we added digoxin to his regimen. On a dose of 0.25 mg daily he had a level of 2.0 therefore this was reduced at 0.125 mg daily. He presented to [facility] 01/13/2015 in atrial flutter with a rapid heart rate. Additionally he had a respiratory illness which may have contributed to the rapid heart rate. He also had a rapid wide complex tachycardia at about 250 bpm which was likely 1-1 conduction of his atrial flutter with aberrancy. He tolerated it reasonably well. He was treated with amiodarone for control of the arrhythmia and spontaneously converted to sinus rhythm. His amiodarone has been continued. He was started on Coumadin, however his INR was elevated at 4.6 on 01/28/2015 and this was discontinued and switched to Eliquis which was started on 02/07/2015. He Has been tolerating Eliquis well. Since starting amiodarone his rhythm has not been much of an issue, he has had no sensation of palpitations has had no lightheadedness, dizziness or presyncope. He is tolerating his amiodarone well. He is now admitted with progressive shortness of breath and peripheral edema consistent with volume overload. In review of his records it appears that his normal 40 mg daily Lasix dose was reduced in early October to 20 mg daily and then he began to develop fluid retention, subsequently was increased but he did not evidently have significant diuresis. He did notice increase in leg swelling going back several weeks. He did not seem to be diuresing very well therefore I added Zaroxolyn to his regimen several days ago. He feels that he has improved significantly, he feels that his swelling is down and his breathing is much better. He does not seem to get out of bed very much. Social History Smoking Status: Former Smoker History of Alcohol Use: Yes (4-5 BEERS A DAY) Review of Systems Respiratory: No cough, No dyspnea at rest, No dyspnea on exertion, No hemoptysis, No shortness of breath, No sputum, No wheezing Cardiac: No PND, No chest pain, No claudication, No edema, No orthopnea, No palpitations Medications Cardiovascular: Item Value Date Time Metolazone 5 mg 11/08/16 0830 (Zaroxolyn Tab) DAILY@0830/PO 11/09/16 0804 Simvastatin 40 mg 11/05/16 2100 (Zocor Tab) QPM/PO 11/08/16 1947 Apixaban 5 mg 11/05/16 0915 (Eliquis Tab) BID/PO 11/09/16 0902 Amiodarone HCl 200 mg 11/05/16 0900 (Cordarone Tab) BID/PO 11/09/16 0905 Metoprolol 50 mg 11/05/16 0900 Tartrate TID/PO 11/09/16 0905 (Lopressor Tab) Furosemide 40 mg/ 4 ml @ 4 mls/min 11/05/16 0900 Syringe BID/IV 11/09/16 0901 Potassium Chloride 10 meq 11/05/16 0900 (Klor-Con Tab) BID/PO 11/09/16 0903 Objective Vital Signs Past 12 Hours Date Time Temp Pulse Resp B/P Pulse Ox O2 Delivery O2 Flow Rate FiO2 11/09/16 07:12 56 18 93 Nasal Cannula 5.0 11/09/16 07:12 36.5 57 20 160/74 96 Nasal Cannula 5.0 11/09/16 04:05 36.7 58 20 132/64 94 Nasal Cannula 5.0 11/09/16 00:00 Nasal Cannula 5.0 11/08/16 23:36 36.4 60 20 151/75 95 Nasal Cannula 5.0 Last Recorded Weight-Kilograms: 116.700 Intake & Output 8-Hour Column 11/08/16 11/09/16 11/09/16 16:00 00:00 08:00 Intake Total 780 ml 440 ml 140 ml Output Total 1000 ml 1125 ml 750 ml Balance -220 ml -685 ml -610 ml 24-Hour Column 11/09/16 08:00 Intake Total 1360 ml Output Total 2875 ml Balance -1515 ml Physical Exam Constitutional: General Apperance: well-nourished, well-developed, obese Level of Distress: NAD, chronically ill Lungs: Respiratory effort: no dyspnea Auscultation: no wheezing, decreased breath sounds Cardiovascular: Apical Impulse: not displaced Heart Auscultation: RRR, no murmurs, no rubs, no gallops Peripheral Pulses: Bruits: none appreciated Carotid Pulse: normal on the left, normal on the right Radial Pulse: normal on the left, normal on the right Femoral Pulse: normal on the left, normal on the right Dorsalis Pedis Pulse: decreased on the left, decreased on the right Extremities: edema (+2 bilateral) Data Laboratory Results: Last 24 Hours Test 11/09/16 05:08 Sodium Level 139 mmol/L Potassium Level 4.1 mmol/L Chloride Level 92 mmol/L Carbon Dioxide Level 44 mmol/L Anion Gap 3.0 mmol/L Blood Urea Nitrogen 48 mg/dl Creatinine 1.40 mg/dl Est Creatinine Clear Calc Drug Dose 76.9 ml/min Estimated GFR () 62.0 Estimated GFR (Non- 53.5 BUN/Creatinine Ratio 34.6 Random Glucose 149 mg/dl Calcium Level 9.0 mg/dl Magnesium Level 2.4 mg/dl Total Bilirubin 0.7 mg/dl Direct Bilirubin 0.3 mg/dl Aspartate Amino Transf (AST/SGOT) 22 U/L Alanine Aminotransferase (ALT/SGPT) 34 U/L Alkaline Phosphatase 118 U/L Total Protein 6.1 gm/dl Albumin 3.2 gm/dl Telemetry reviewed: Sinus rhythm, no significant arrhythmia Assessment and Plan #1. Congestive heart failure: He presents with worsening shortness of breath as well as peripheral edema consistent with left and right heart failure. His left ventricular systolic function however is normal, he may have left ventricular diastolic dysfunction (he does have mild left ventricular hypertrophy) causing his shortness of breath. He also has right ventricular dysfunction and elevated right-sided pressures would certainly contribute to his edema. There does not appear to be significant change in left ventricular or right ventricular function therefore his presentation is probably due to a positive fluid balance, in part probably due to excessive fluid intake, perhaps due to worsening renal function or lack of diuresis following reduction of his diuretic dose early October. I agree with diuresis watching his renal function. So far based on intake and output and his weight he has not diuresed a lot, although his weight is down now, and his I&O has not been appreciably negative but I believe is quite incomplete. He tells me that he feels better and that he has been urinating quite frequently since admission. He does seem to be better clinically and I am disinclined to increase his diuretics. I think we should watch him for another day or two. #2. Paroxysmal atrial fibrillation and flutter: He has a long history of paroxysmal atrial fibrillation but also has documentation of atrial flutter with a rapid heart rate, including probable 1-1 conduction. I would continue the amiodarone at his current dose of 400 mg daily since his level is acceptable on this dose. It does seem he working to control his atrial arrhythmia.. I did obtain liver function tests 11/06/2016 which were minimally elevated, I suspected a lot of the elevation was be due to passive liver congestion from his heart failure but even if it is the amiodarone they're minimally elevated and I would not adjust the dose based on the liver function tests. On repeat today his liver function tests are significantly improved, several are still slightly abnormal. This is consistent with passive congestion an improvement. He does need to continue anticoagulation and is tolerating the Eliquis well. #3. Coronary artery disease: He is presumed to have coronary artery disease based on an abnormal stress test, however he does not have symptoms related to it at present. His last stress test, although not a very good test as he did not reach target HR, did not show ischemia. His cardiac enzymes have been normal. With normal LV function without wall motion abnormalities and normal cardiac enzymes I would not further investigate coronary disease at this time. #4. Cor pulmonale: His echos have demonstrated right heart dysfunction and cor pulmonale, this appears to be present on his current echocardiogram which is not appreciably different than the last several. There is little that can be done with this other than controlling his volume status. Hopefully with diuresis creatinine will not worsen, I don't believe his left ventricular preload is reduced currently although that may happen with diuresis resulting in a diminished cardiac output and worsening creatinine. So far his creatinine is unchanged or slightly improved. I would therefore continue with diuresis and watch closely. Thank you for allowing me to participate in his care.
--- NOTE | 2016-11-09 12:50 | Progress Note ---
Subjective Date of Service: Nov 09, 2016. Subjective Pt evaluation today including: conversation w/ patient, conversation w/ family , physical exam, chart review, lab review, review of studies, conversation w/ senior consumer insights consultant, review of inpatient medication list Sitting up in best side, feeling much comfortable, speak full sentence, no acute distress or any labored breathing He also looks less swelling Has not needed to be on BiPAP machine, Possible is 96% in 2 L which is significantly improved from his baseline need a 4 L/m at home Left lower extremity still have some pain and swelling, is better Problem List Medical Problems: (1) Acute renal failure Status: Acute (2) Chest pressure Status: Acute (3) CHF (congestive heart failure) Status: Acute (4) CHF (congestive heart failure) Status: Chronic (5) COPD (chronic obstructive pulmonary disease) Status: Acute (6) COPD exacerbation Status: Acute (7) Hypokalemia Status: Acute (8) Hypoxia Status: Acute (9) SOB (shortness of breath) Status: Acute Review of Systems Constitutional: No chills, No fatigue, No fever, No problem reported, No sweats , No weakness, No weight loss Eyes: No diplopia, No discharge, No eye pain, No redness, No worsening of vision ENT: No dental problems, No hearing loss, No nasal symptoms, No sore throat, No tinnitus, No trouble swallowing, No unusual epistaxis Respiratory: No cough, No dyspnea at rest, No dyspnea on exertion, No hemoptysis, No shortness of breath, No sputum, No wheezing Cardiac: No PND, No chest pain, No claudication, No edema, No orthopnea, No palpitations Abdomen: No constipation, No diarrhea, No nausea, No pain, No vomiting Musculoskeletal: + swelling (left lower extremity), No calf pain, No joint pain , No muscle pain Male : No dysuria, No hematuria, No incontinence, No nocturia more than once/ night, No slowing stream, No urinary frequency Neurologic: No balance problems, No memory loss, No numbness/tingling, No paralysis, No vertigo, No weakness Psychiatric: No anhedonism, No anxiety, No depression symptoms, No insomnia, No substance abuse Heme: No abnormal bleeding/bruising, No clotting problems, No night sweats, No swollen lymph nodes Endo: No excessive thirst, No excessive urination, No fatigue Skin: No bleeding, No color change, No itch, No new/changing skin lesions, No rash Objective Vital Signs Date Time Temp Pulse Resp B/P Pulse Ox O2 Delivery O2 Flow Rate FiO2 11/09/16 11:54 36.7 77 18 158/89 96 Nasal Cannula 2.0 11/09/16 11:16 60 18 93 Nasal Cannula 5.0 11/09/16 08:00 96 Nasal Cannula 5.0 11/09/16 07:12 56 18 93 Nasal Cannula 5.0 11/09/16 07:12 36.5 57 20 160/74 96 Nasal Cannula 5.0 11/09/16 04:05 36.7 58 20 132/64 94 Nasal Cannula 5.0 11/09/16 00:00 Nasal Cannula 5.0 11/08/16 23:36 36.4 60 20 151/75 95 Nasal Cannula 5.0 11/08/16 20:00 Nasal Cannula 5.0 11/08/16 19:25 36.5 57 20 154/76 96 Nasal Cannula 5.0 Humidified Oxygen 11/08/16 16:00 94 Nasal Cannula 5.0 11/08/16 15:29 63 18 93 Nasal Cannula 5.0 11/08/16 15:04 36.4 61 16 145/65 93 Nasal Cannula 5.0 Physical Exam General Appearance: WD/WN, no apparent distress, + obese, + pertinent finding ( he generally looks much better seems like lost more body weight then documented ) Eyes: normal inspection, PERRL, EOMI, sclerae normal ENT: normal ENT inspection, hearing grossly normal, pharynx normal Neck: supple, no adenopathy, thyroid normal, no JVD, no carotid bruits, trachea midline Respiratory/Chest: chest non-tender, normal breath sounds, no respiratory distress, no accessory muscle use, + decreased breath sounds Cardiovascular: regular rate, rhythm, no edema, no gallop, no JVD, no murmur Abdomen: normal bowel sounds, non tender, soft, no organomegaly, no pulsatile mass Extremities: normal range of motion, non-tender, no calf tenderness, normal capillary refill, pelvis stable, + pertinent finding (left lower extremity still 2+ edema, no calf pain) Neurologic/Psychiatric: cloth beamer II-XII nml as tested, no motor/sensory deficits, alert, normal mood/affect, oriented x 3 Skin: normal color, warm/dry, no rash Lymphatic: no adenopathy Laboratory Results Last 24 Hours Test 11/09/16 05:08 Sodium Level 139 mmol/L Potassium Level 4.1 mmol/L Chloride Level 92 mmol/L Carbon Dioxide Level 44 mmol/L Anion Gap 3.0 mmol/L Blood Urea Nitrogen 48 mg/dl Creatinine 1.40 mg/dl Est Creatinine Clear Calc Drug Dose 76.9 ml/min Estimated GFR () 62.0 Estimated GFR (Non- 53.5 BUN/Creatinine Ratio 34.6 Random Glucose 149 mg/dl Calcium Level 9.0 mg/dl Magnesium Level 2.4 mg/dl Total Bilirubin 0.7 mg/dl Direct Bilirubin 0.3 mg/dl Aspartate Amino Transf (AST/SGOT) 22 U/L Alanine Aminotransferase (ALT/SGPT) 34 U/L Alkaline Phosphatase 118 U/L Total Protein 6.1 gm/dl Albumin 3.2 gm/dl Assessment and Plan 61 y/o M admitted because of dyspnea on exertion, progressively getting worse, CHF and copd exacerbation on 11/05/2016 Hx of advanced COPD, PAF and diastolic CHF. Pt was recently admitted for COPD and pneumonia. he presents to the emergency known with progressive SOB limiting any activity. Also complained of central chest tightness prior to admission and B/L hand tremors. Pt required Bipap to maintain an adequate 02 saturation on arrival to ER. He reported he supposed to be on BiPAP machine at home, but did not use for a while combined to CHF and COPD exacerbation upon admission: Continue Improving slowly, but compared to admission significant better Acute on chronic diastolic CHF exacerbation: Stable/continue improving Echo in this admission shows diastolic dysfunction Negative output 2.8 L in 3 days Has been on IV lasix , and beta juan ramon, no JOSE inhibitor because of chronic kidney disease creatinine ,creatinine continue to improve in 3 days Cardiology on the case, add Zaroxolyn from 11/07/2016, tolerated well Improve negative output and renal function likely the combined effect of Lasix and Zaroxolyn, will continue Worsening alkalosis likely from the diuretic, adding Diamox 250 by mouth twice a day for 2 days only Continue fluid restriction, input and output, counseling about the importance of fluid restriction, and 2 g sodium diet and the important now medicine compliance Has ordered to CHF education package new echo reviewed: it is not different than the last echo Possible 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 raspberry failure and COPD exacerbation and Cor pulmonale: Stable and improving History of COPD and tobacco abuse disorder, was having chronic respirator failure home O2 dependent prior to the admission continue NCO 2, possible is approaching to baseline Will continue nebulizer treatment every 6 hours and every 2 hours as needed, Continue tapering Solu-Medrol Paginator consulted on the case -Left Lower extremity swelling, etiology unknown, Improves has ruled out DVT prior to this admission, which was done on 10/31/2016 I don't think I need to repeat doppler , he is on Apixaban for stroke prevention, which will also help for the treatment of DVT, therefore the management possible no difference but single left lower extremity swelling and edema needs to have further evaluation and treatment vascular surgeon consulted, no any further evaluation, recommend compression stockings, which was ordered, encourage patient to continue left lower extremity stocking for the edema PAF: Currently is NSR, stable Continue anticoagulated with Apixaban cont Amio, Toprol. Possible heavy alcohol intake with drinks 3 beers daily, stable Has counselled about risk and benefit of drinking alcohol, recommend to quit drinking Stable patient has no sign of alcohol withdrawal now Possible acute kidney injury on chronic kidney disease stage III due to acute CHF exacerbation upon admission See above, continue improves after diuretic Stable will follow-up Has a lot of discussion with patient above medicine compliance , and water restriction/ diet compliance, to decreased the risk of readmission, However, he seems not agreeable in this aspect, he said he will no more do the fluid restrictions after discharge to home, which make him feel no quantity of life, and he would like to continue drinking beer 2-3 daily to enjoy his life. Patient needs to have a lot of education in this aspect Encourage out of bed and walk and PT OT Possible discharge in day 1 or 2 Full code anticoagulated with Apixaban Continued [facility] stay due to: multiple IV medications needed Discharge planning: home
[2016-11-09] MEDS: ACETAMINOPHEN 325 MG TAB PO PRN (15:51)
[2016-11-09] MEDS: SIMVASTATIN 40 MG TAB PO SCH (20:34)
[2016-11-09] MEDS: ZOLPIDEM TARTRATE 5 MG TAB PO PRN (21:59)
[2016-11-10] VITALS (17 sets, daily range): BP systolic 143–171; BP diastolic 64–81; PULSE 55–71; TEMP 36.2–36.6; O2SAT 87–98
[2016-11-10] MEDS: NITROGLYCERIN OINT 2% 1GM PACKET EXT SCH ×3 (06:23→18:52)
[2016-11-10] MEDS: ALBUT/IPRATROP 3MG/0.5MG NEB 3 ML VIAL INH SCH ×4 (07:11→18:28)
[2016-11-10 07:41] LABS: BUN/CREATININE RATIO 34.5 (10-20); CALCIUM 8.8 mg/dl (8.5-10.1); CREATININE 1.6 mg/dl (0.60-1.40); MAGNESIUM 2.4 mg/dl (1.8-2.4); POTASSIUM 4.2 mmol/L (3.5-5.1)
[2016-11-10] MEDS: ACETAMINOPHEN 325 MG TAB PO PRN ×2 (07:46→15:57)
[2016-11-10] MEDS: METOLAZONE 5 MG TAB PO SCH (08:07)
--- NOTE | 2016-11-10 08:54 | Cardiology Follow-Up ---
Subjective Date of Service: Nov 10, 2016. Pt evaluation today including: conversation w/ patient, physical exam, lab review, review of studies, review of inpatient medication list History of Present Illness This is a 61-year-old gentleman with a history of mild carotid disease, COPD with cor pulmonale, long-standing tobacco and alcohol abuse who presented with near syncope and was observed to be in atrial fibrillation with a rapid ventricular response on December 10, 2010. He also had some chest heaviness when he presented with that arrhythmia. He was feeling poorly throughout most of that day, it is likely that the arrhythmia started that morning and it subsequently terminated spontaneously the same day in the hospital. Evaluation in the hospital included echocardiography and stress testing. The echocardiogram suggested right ventricular dysfunction, the stress test suggested ischemia in the LAD distribution. Based on lack of any anginal symptoms other than during the arrhythmia invasive evaluation has not been performed however he is being treated medically for atherosclerosis. He was discharged from the hospital on low dose beta blockade given his COPD. He had a recurrence of his arrhythmia in December of 2010 (based on symptoms) with some dizziness therefore we added digoxin to his regimen. On a dose of 0.25 mg daily he had a level of 2.0 therefore this was reduced at 0.125 mg daily. He presented to [facility] 01/13/2015 in atrial flutter with a rapid heart rate. Additionally he had a respiratory illness which may have contributed to the rapid heart rate. He also had a rapid wide complex tachycardia at about 250 bpm which was likely 1-1 conduction of his atrial flutter with aberrancy. He tolerated it reasonably well. He was treated with amiodarone for control of the arrhythmia and spontaneously converted to sinus rhythm. His amiodarone has been continued. He was started on Coumadin, however his INR was elevated at 4.6 on 01/28/2015 and this was discontinued and switched to Eliquis which was started on 02/07/2015. He Has been tolerating Eliquis well. Since starting amiodarone his rhythm has not been much of an issue, he has had no sensation of palpitations has had no lightheadedness, dizziness or presyncope. He is tolerating his amiodarone well. He is now admitted with progressive shortness of breath and peripheral edema consistent with volume overload. In review of his records it appears that his normal 40 mg daily Lasix dose was reduced in early October to 20 mg daily and then he began to develop fluid retention, subsequently was increased but he did not evidently have significant diuresis. He did notice increase in leg swelling going back several weeks. He did not seem to be diuresing very well therefore I added Zaroxolyn to his regimen several days ago. He feels that he has improved significantly, he feels that his swelling is down and his breathing is much better. He does not seem to get out of bed very much. Social History Smoking Status: Former Smoker History of Alcohol Use: Yes (4-5 BEERS A DAY) Review of Systems Respiratory: No cough, No dyspnea at rest, No dyspnea on exertion, No hemoptysis, No shortness of breath, No sputum, No wheezing Cardiac: No PND, No chest pain, No claudication, No edema, No orthopnea, No palpitations Medications Cardiovascular: Item Value Date Time Metolazone 5 mg 11/08/16 0830 (Zaroxolyn Tab) DAILY@0830/PO 11/10/16 0807 Acetazolamide 250 mg 11/08/16 1700 (Diamox Tab) BID@0900,1700/PO 11/09/16 1732 Simvastatin 40 mg 11/05/16 2100 (Zocor Tab) QPM/PO 11/09/162033 Apixaban 5 mg 11/05/16 0915 (Eliquis Tab) BID/PO 11/09/162032 Nitroglycerin 1 inch 11/05/16 0915 (Nitroglycerin Q6/EXT 11/10/16 0623 2% Oint) Amiodarone HCl 200 mg 11/05/16 0900 (Cordarone Tab) BID/PO 11/09/162032 Metoprolol 50 mg 11/05/16 0900 Tartrate TID/PO (Lopressor Tab) Furosemide 40 mg/ 4 ml @ 4 mls/min 11/05/16 0900 Syringe BID/IV 11/09/162032 Potassium Chloride 10 meq 11/05/16 0900 (Klor-Con Tab) BID/PO 11/09/162033 Objective Vital Signs Past 12 Hours Date Time Temp Pulse Resp B/P Pulse Ox O2 Delivery O2 Flow Rate FiO2 11/10/16 07:31 36.2 57 18 145/65 95 Room Air 5.0 11/10/16 07:13 59 18 95 Nasal Cannula 5.0 11/10/16 04:06 36.4 59 18 156/65 94 Nasal Cannula 5.0 11/10/16 04:00 Nasal Cannula 5.0 11/10/16 00:00 Nasal Cannula 5.0 11/09/16 23:18 36.5 60 20 162/75 95 Nasal Cannula 5.0 Last Recorded Weight-Kilograms: 114.400 Intake & Output 8-Hour Column 11/09/16 11/09/16 11/10/16 15:59 23:59 07:59 Intake Total 360 ml 240 ml 140 ml Output Total 1600 ml 1475 ml Balance -1240 ml 240 ml -1335 ml 24-Hour Column 11/10/16 07:59 Intake Total 740 ml Output Total 3075 ml Balance -2335 ml Physical Exam Constitutional: General Apperance: well-nourished, well-developed, obese Level of Distress: NAD, chronically ill Lungs: Respiratory effort: no dyspnea Auscultation: no wheezing, decreased breath sounds Cardiovascular: Apical Impulse: not displaced Heart Auscultation: RRR, no murmurs, no rubs, no gallops Peripheral Pulses: Bruits: none appreciated Carotid Pulse: normal on the left, normal on the right Radial Pulse: normal on the left, normal on the right Femoral Pulse: normal on the left, normal on the right Dorsalis Pedis Pulse: decreased on the left, decreased on the right Extremities: edema (+1 bilateral, improved) Data Laboratory Results: Last 24 Hours Test 11/10/16 06:03 Sodium Level 140 mmol/L Potassium Level 4.2 mmol/L Chloride Level 93 mmol/L Carbon Dioxide Level 44 mmol/L Anion Gap 3.0 mmol/L Blood Urea Nitrogen 55 mg/dl Creatinine 1.60 mg/dl Est Creatinine Clear Calc Drug Dose 66.2 ml/min Estimated GFR () 52.7 Estimated GFR (Non- 45.5 BUN/Creatinine Ratio 34.5 Random Glucose 135 mg/dl Calcium Level 8.8 mg/dl Magnesium Level 2.4 mg/dl Telemetry reviewed: SR, no arrhythmias Assessment and Plan #1. Congestive heart failure: He presents with worsening shortness of breath as well as peripheral edema consistent with left and right heart failure. His left ventricular systolic function however is normal, he may have left ventricular diastolic dysfunction (he does have mild left ventricular hypertrophy) causing his shortness of breath. He also has right ventricular dysfunction and elevated right-sided pressures would certainly contribute to his edema. There does not appear to be significant change in left ventricular or right ventricular function therefore his presentation is probably due to a positive fluid balance, in part probably due to excessive fluid intake, perhaps due to worsening renal function or lack of diuresis following reduction of his diuretic dose early October. I agree with diuresis watching his renal function. He has been diuresing well the past several days and feels well. He is still fluid overloaded but approaching a reasonable state of hydration. #2. Paroxysmal atrial fibrillation and flutter: He has a long history of paroxysmal atrial fibrillation but also has documentation of atrial flutter with a rapid heart rate, including probable 1-1 conduction. I would continue the amiodarone at his current dose of 400 mg daily since his level is acceptable on this dose. It does seem he working to control his atrial arrhythmia.. I did obtain liver function tests 11/06/2016 which were minimally elevated, I suspected a lot of the elevation was be due to passive liver congestion from his heart failure but even if it is the amiodarone they're minimally elevated and I would not adjust the dose based on the liver function tests. On repeat his liver function tests are significantly improved, several are still slightly abnormal. This is consistent with passive congestion an improvement. He does need to continue anticoagulation and is tolerating the Eliquis well. #3. Coronary artery disease: He is presumed to have coronary artery disease based on an abnormal stress test, however he does not have symptoms related to it at present. His last stress test, although not a very good test as he did not reach target HR, did not show ischemia. His cardiac enzymes have been normal. With normal LV function without wall motion abnormalities and normal cardiac enzymes I would not further investigate coronary disease at this time. #4. Cor pulmonale: His echos have demonstrated right heart dysfunction and cor pulmonale, this appears to be present on his current echocardiogram which is not appreciably different than the last several. There is little that can be done with this other than controlling his volume status. Hopefully with diuresis creatinine will not worsen much more, but it is trending up now. We may not be able to diurese much more without affecting his preload and reducing cardiac output. Thank you for allowing me to participate in his care.
[2016-11-10] MEDS: AcetaZOLAMIDE 250 MG TAB PO SCH ×2 (09:23→16:41)
[2016-11-10] MEDS: APIXABAN 2.5 MG TAB PO SCH ×2 (09:23→21:44)
[2016-11-10] MEDS: METHYLPREDNISOLONE IV 60 MG in SYRINGE 0 ML IV SCH ×2 (09:23→21:42)
[2016-11-10] MEDS: FUROSEMIDE INJ 40 MG in SYRINGE 0 ML IV SCH ×2 (09:23→21:42)
[2016-11-10] MEDS: PANTOprazole SOD 40 MG TAB PO SCH ×2 (09:24→21:45)
[2016-11-10] MEDS: AMIODARONE 200 MG TAB PO SCH ×2 (09:24→21:43)
[2016-11-10] MEDS: THIAMINE HCL 100 MG TAB PO SCH (09:24)
[2016-11-10] MEDS: POTASSIUM CHLORIDE 20 MEQ TABCR PO SCH ×2 (09:25→21:44)
[2016-11-10] MEDS: CYANOCOBALAMIN 500 MCG TAB (VIT B-12) PO SCH (09:25)
[2016-11-10] MEDS: FLUTICASONE/SALMETEROL (ADVAIR) 500/50 INH 14 PUFF INH SCH ×2 (09:25→21:41)
[2016-11-10] MEDS: METOPROLOL TARTRATE 50 MG TAB PO SCH ×3 (09:26→21:00)
--- NOTE | 2016-11-10 11:50 | Progress Note ---
Subjective Date of Service: Nov 10, 2016. Subjective Pt evaluation today including: conversation w/ patient, physical exam, chart review, lab review, review of studies, review of inpatient medication list feeling better - breathign feels more at baseline but notes that he hasn't gotten up and around much so wonders how well he'll do with activity. notes that he got caught off guard w CHF exacerbation since it was new to him and crept up insidiously with slow weight gain and slow worsening of breathing notes he's not going to want to comply with lifestyle change. after further discussion he is willing to learn how the foods / sodium intake / fluid intake affect him so he can modify things with lasix/etc to keep from having severe exacerbations, but doesn't want to change life habits - just wants to change how he follows his condition and what he does with medications Problem List Medical Problems: (1) Acute renal failure Status: Acute (2) Chest pressure Status: Acute (3) CHF (congestive heart failure) Status: Acute (4) CHF (congestive heart failure) Status: Chronic (5) COPD (chronic obstructive pulmonary disease) Status: Acute (6) COPD exacerbation Status: Acute (7) Hypokalemia Status: Acute (8) Hypoxia Status: Acute (9) SOB (shortness of breath) Status: Acute Review of Systems ros otherwise negative except for as above Objective Vital Signs Date Time Temp Pulse Resp B/P Pulse Ox O2 Delivery O2 Flow Rate FiO2 11/10/16 11:10 71 18 94 Nasal Cannula 5.0 11/10/16 08:00 95 Nasal Cannula 5.0 11/10/16 07:31 36.2 57 18 145/65 95 Room Air 5.0 11/10/16 07:13 59 18 95 Nasal Cannula 5.0 11/10/16 04:06 36.4 59 18 156/65 94 Nasal Cannula 5.0 11/10/16 04:00 Nasal Cannula 5.0 11/10/16 00:00 Nasal Cannula 5.0 11/09/16 23:18 36.5 60 20 162/75 95 Nasal Cannula 5.0 11/09/16 20:25 60 149/69 95 Nasal Cannula 5.0 11/09/16 20:19 36.4 59 18 147/72 95 Nasal Cannula 5.0 11/09/16 20:00 96 Nasal Cannula 5.0 11/09/16 18:59 60 18 95 Nasal Cannula 5.0 11/09/16 17:32 58 135/69 11/09/16 16:00 96 Nasal Cannula 5.0 11/09/16 15:22 58 18 96 Nasal Cannula 5.0 11/09/16 14:56 36.4 55 16 152/74 93 Nasal Cannula 5.0 11/09/16 12:00 96 Nasal Cannula 5.0 11/09/16 11:54 36.7 77 18 158/89 96 Nasal Cannula 2.0 Physical Exam General Appearance: no apparent distress Eyes: EOMI ENT: hearing grossly normal Neck: trachea midline Respiratory/Chest: no respiratory distress, no accessory muscle use, + decreased breath sounds (globally no r//rw good effort), + rales (faint bibasilar - only heard with amplification) Extremities: normal range of motion 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 breathing feels at baseline. Acute on chronic diastolic CHF exacerbation: Stable/continue improving Echo in this admission shows diastolic dysfunction -continue diuretic - transition to PO -no ACEi due to CKD/creatinine -educated on lifestyle importance - discussed that how he follows through ( changing eating habits vs vigilance and diuretics) is up to him, but that ignoring recommendations entirely will likely just have him have recurrent exacerbations- he did express understanding of that Possible 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 respiratory failure and COPD exacerbation and Cor pulmonale: Stable and improving History of COPD and tobacco abuse disorder, was having chronic respiratory failure home O2 dependent prior to the admission continue NCO 2, at rest he feels he is at baseline Will continue nebulizers Continue tapering Solu-Medrol --> transition to PO prednisone -Left Lower extremity swelling, etiology unknown, Improved doppler negative, already on anticoagulation likely asymmetric venous stasis PAF: Currently is NSR, stable Continue anticoagulated with Apixaban cont Amio, Toprol. DOMINIQUE on CKD stage III present on admission due to acute CHF exacerbation upon admission continue to follow DVT proph -anticoagulated increase ambulation - hopefully home by tomorrow as long as no significant RAO Continued [facility] stay due to: multiple IV medications needed Discharge planning: home
[2016-11-10] MEDS: TRAMADOL HCL 50 MG TAB PO PRN (19:26)
[2016-11-10] MEDS: ZOLPIDEM TARTRATE 5 MG TAB PO PRN (21:42)
[2016-11-10] MEDS: SIMVASTATIN 40 MG TAB PO SCH (21:45)
[2016-11-11 04:48] VITALS: BP 154/72; PULSE 63; TEMP 36.3; O2SAT 92
[2016-11-11] MEDS: NITROGLYCERIN OINT 2% 1GM PACKET EXT SCH ×2 (06:33)
[2016-11-11 07:19] VITALS: PULSE 60; O2SAT 95
[2016-11-11] MEDS: ALBUT/IPRATROP 3MG/0.5MG NEB 3 ML VIAL INH SCH ×2 (07:19→12:00)
[2016-11-11 07:44] VITALS: BP 142/85; PULSE 67; TEMP 36.3; O2SAT 94
[2016-11-11 08:00] VITALS: O2SAT 93
[2016-11-11] MEDS: FLUTICASONE/SALMETEROL (ADVAIR) 500/50 INH 14 PUFF INH SCH (08:01)
[2016-11-11] MEDS: AMIODARONE 200 MG TAB PO SCH (08:01)
[2016-11-11] MEDS: AcetaZOLAMIDE 250 MG TAB PO SCH (08:02)
[2016-11-11] MEDS: CYANOCOBALAMIN 500 MCG TAB (VIT B-12) PO SCH (08:02)
[2016-11-11] MEDS: METHYLPREDNISOLONE IV 60 MG in SYRINGE 0 ML IV SCH (08:02)
[2016-11-11] MEDS: POTASSIUM CHLORIDE 20 MEQ TABCR PO SCH (08:03)
[2016-11-11] MEDS: APIXABAN 2.5 MG TAB PO SCH (08:05)
[2016-11-11] MEDS: METOPROLOL TARTRATE 50 MG TAB PO SCH (08:06)
[2016-11-11] MEDS: PANTOprazole SOD 40 MG TAB PO SCH (08:06)
[2016-11-11] MEDS: METOLAZONE 5 MG TAB PO SCH (08:06)
[2016-11-11] MEDS: THIAMINE HCL 100 MG TAB PO SCH (08:07)
--- NOTE | 2016-11-11 09:10 | Cardiology Follow-Up ---
Subjective Date of Service: Nov 11, 2016. Pt evaluation today including: conversation w/ patient, physical exam, lab review, review of studies, review of inpatient medication list History of Present Illness This is a 61-year-old gentleman with a history of mild carotid disease, COPD with cor pulmonale, long-standing tobacco and alcohol abuse who presented with near syncope and was observed to be in atrial fibrillation with a rapid ventricular response on December 10, 2010. He also had some chest heaviness when he presented with that arrhythmia. He was feeling poorly throughout most of that day, it is likely that the arrhythmia started that morning and it subsequently terminated spontaneously the same day in the hospital. Evaluation in the hospital included echocardiography and stress testing. The echocardiogram suggested right ventricular dysfunction, the stress test suggested ischemia in the LAD distribution. Based on lack of any anginal symptoms other than during the arrhythmia invasive evaluation has not been performed however he is being treated medically for atherosclerosis. He was discharged from the hospital on low dose beta blockade given his COPD. He had a recurrence of his arrhythmia in December of 2010 (based on symptoms) with some dizziness therefore we added digoxin to his regimen. On a dose of 0.25 mg daily he had a level of 2.0 therefore this was reduced at 0.125 mg daily. He presented to [facility] 01/13/2015 in atrial flutter with a rapid heart rate. Additionally he had a respiratory illness which may have contributed to the rapid heart rate. He also had a rapid wide complex tachycardia at about 250 bpm which was likely 1-1 conduction of his atrial flutter with aberrancy. He tolerated it reasonably well. He was treated with amiodarone for control of the arrhythmia and spontaneously converted to sinus rhythm. His amiodarone has been continued. He was started on Coumadin, however his INR was elevated at 4.6 on 01/28/2015 and this was discontinued and switched to Eliquis which was started on 02/07/2015. He Has been tolerating Eliquis well. Since starting amiodarone his rhythm has not been much of an issue, he has had no sensation of palpitations has had no lightheadedness, dizziness or presyncope. He is tolerating his amiodarone well. He is now admitted with progressive shortness of breath and peripheral edema consistent with volume overload. In review of his records it appears that his normal 40 mg daily Lasix dose was reduced in early October to 20 mg daily and then he began to develop fluid retention, subsequently was increased but he did not evidently have significant diuresis. He did notice increase in leg swelling going back several weeks. He did not seem to be diuresing very well therefore I added Zaroxolyn to his regimen several days ago. He feels that he has improved significantly, he feels that his swelling is down and his breathing is much better. He does not seem to get out of bed very much. Social History Smoking Status: Former Smoker History of Alcohol Use: Yes (4-5 BEERS A DAY) Review of Systems Respiratory: No cough, No dyspnea at rest, No dyspnea on exertion, No hemoptysis, No shortness of breath, No sputum, No wheezing Cardiac: No PND, No chest pain, No claudication, No edema, No orthopnea, No palpitations Medications Cardiovascular: Item Value Date Time Acetazolamide 250 mg 11/08/16 1700 (Diamox Tab) BID@0900,1700/PO 11/11/16 0802 Metolazone 5 mg 11/08/16 0830 (Zaroxolyn Tab) DAILY@0830/PO 11/11/16 0806 Simvastatin 40 mg 11/05/16 2100 (Zocor Tab) QPM/PO 11/10/16 2145 Apixaban 5 mg 11/05/16 0915 (Eliquis Tab) BID/PO 11/11/16 0805 Amiodarone HCl 200 mg 11/05/16 0900 (Cordarone Tab) BID/PO 11/11/16 0801 Metoprolol 50 mg 11/05/16 0900 Tartrate TID/PO 11/11/16 0806 (Lopressor Tab) Potassium Chloride 10 meq 11/05/16 0900 (Klor-Con Tab) BID/PO 11/11/16 0803 Magnesium 30 ml 11/05/16 0615 Hydroxide Q12H PRN/PO (Milk Of Magnesia Susp) Objective Vital Signs Past 12 Hours Date Time Temp Pulse Resp B/P Pulse Ox O2 Delivery O2 Flow Rate FiO2 11/11/16 07:44 36.3 67 18 142/85 94 5.0 11/11/16 07:19 60 18 95 Nasal Cannula 5.0 11/11/16 04:48 36.3 63 20 154/72 92 Nasal Cannula 5.0 11/11/16 04:00 Nasal Cannula 5.0 11/11/16 00:00 Nasal Cannula 5.0 11/10/16 23:37 36.3 65 20 157/81 97 Nasal Cannula 5.0 11/10/16 21:40 58 146/72 94 Nasal Cannula 5.0 Last Recorded Weight-Kilograms: 111.800 Intake & Output 8-Hour Column 11/10/16 11/10/16 11/11/16 15:59 23:59 07:59 Intake Total 480 ml 240 ml 100 ml Output Total 1200 ml 700 ml 850 ml Balance -720 ml -460 ml -750 ml 24-Hour Column 11/11/16 07:59 Intake Total 820 ml Output Total 2750 ml Balance -1930 ml Physical Exam Constitutional: General Apperance: well-nourished, well-developed, obese Level of Distress: NAD, chronically ill Lungs: Respiratory effort: no dyspnea Auscultation: no wheezing, decreased breath sounds Cardiovascular: Apical Impulse: not displaced Heart Auscultation: RRR, no murmurs, no rubs, no gallops Peripheral Pulses: Bruits: none appreciated Extremities: edema (+1 bilateral, improved) Data Telemetry reviewed: Sinus rhythm and sinus bradycardia Assessment and Plan #1. Congestive heart failure: He presents with worsening shortness of breath as well as peripheral edema consistent with left and right heart failure. His left ventricular systolic function however is normal, he may have left ventricular diastolic dysfunction (he does have mild left ventricular hypertrophy) causing his shortness of breath. He also has right ventricular dysfunction and elevated right-sided pressures would certainly contribute to his edema. There does not appear to be significant change in left ventricular or right ventricular function therefore his presentation is probably due to a positive fluid balance, in part probably due to excessive fluid intake, perhaps due to worsening renal function or lack of diuresis following reduction of his diuretic dose early October. I agree with diuresis watching his renal function. He has been diuresing well the past several days and feels well. He is still fluid overloaded (based on edema) but approaching a reasonable state of hydration. We may not be able to eliminate all of the edema due to his right heart dysfunction. #2. Paroxysmal atrial fibrillation and flutter: He has a long history of paroxysmal atrial fibrillation but also has documentation of atrial flutter with a rapid heart rate, including probable 1-1 conduction. I would continue the amiodarone at his current dose of 400 mg daily since his level is acceptable on this dose. It does seem he working to control his atrial arrhythmia.. I did obtain liver function tests 11/06/2016 which were minimally elevated, I suspected a lot of the elevation was be due to passive liver congestion from his heart failure but even if it is the amiodarone they're minimally elevated and I would not adjust the dose based on the liver function tests. On repeat his liver function tests are significantly improved, several are still slightly abnormal. This is consistent with passive congestion an improvement. He does need to continue anticoagulation and is tolerating the Eliquis well. #3. Coronary artery disease: He is presumed to have coronary artery disease based on an abnormal stress test, however he does not have symptoms related to it at present. His last stress test, although not a very good test as he did not reach target HR, did not show ischemia. His cardiac enzymes have been normal. With normal LV function without wall motion abnormalities and normal cardiac enzymes I would not further investigate coronary disease at this time. #4. Cor pulmonale: His echos have demonstrated right heart dysfunction and cor pulmonale, this appears to be present on his current echocardiogram which is not appreciably different than the last several. There is little that can be done with this other than controlling his volume status. Hopefully with diuresis creatinine will not worsen much more, but it is trending up as of yesterday. We may not be able to diurese much more without affecting his preload and reducing cardiac output. I will order kidney function for today. If he goes home I will arrange outpatient follow-up in one to 2 weeks to follow his volume status, he should go home with when necessary Zaroxolyn to take along with his daily Lasix. Thank you for allowing me to participate in his care.
[2016-11-11 11:03] LABS: BUN/CREATININE RATIO 35.3 (10-20); CALCIUM 8.8 mg/dl (8.5-10.1); CREATININE 1.5 mg/dl (0.60-1.40); POTASSIUM 3.6 mmol/L (3.5-5.1)
[2016-11-11] MEDS ORDERED: PRED10TA PO (11:13)
[2016-11-11] MEDS ORDERED: THM100 PO (11:13)
[2016-11-11] MEDS ORDERED: ZRX5 PO (11:13)
[2016-11-11] MEDS ORDERED: MCRK20 PO (11:13)
[2016-11-11] MEDS ORDERED: NTRSLP4 SL (11:13)
[2016-11-11] MEDS ORDERED: DMX250 PO (11:13)
--- NOTE | 2016-11-11 11:18 | Discharge Instructions ---
Discharge Instructions Admission Reason for Admission: Chf Exacerbation Discharge Discharge Diagnosis / Problem: acute congestive heart failure Discharge Goals Goal(s): Diagnostic testing, Therapeutic intervention Activity Recommendations Activity Limitations: resume your previous activity . Instructions / Follow-Up Instructions / Follow-Up congestive heart failure -we'll manage with your regular lasix and additional metolazone when you're showing weight gain -weigh yourself daily, follow swelling, and follow your breathing - worsening of any of those (and particularly two of those at the same time) can be quite indicative of a worsening with congestive heart failure that will likely require more aggressive diuretics -we'll get you set up with the [facility] congestive heart failure clinic to help facilitate advice and follow up on the dosing/fluid balance and "keeping you out of trouble" -sodium intake leads pretty much directly to fluid retention - so when you take in more sodium expect to retain more fluid. the goals would be to stay below 2000mg of sodium in a day, and less then 400mg of sodium in any given serving. when you exceed those limits, you'll want to be extra vigilant for retention/// needing more diuretics -the fluid balance will be to try to stay in between "wet" and "dry." symptoms of being "wet" will be too much fluid -- short of breath, swelling, weight gain. symptoms of being dry can be really subtle until/unless it progresses to kidney failure -- and so you'll want your team to check labwork relatively frequently (a basic metabolic panel next week, then periodically - especially if you've needed to be on the extra diuretic for any length of time) Call your Primary Care doctor if any of the following symptoms or problems start or get worse: * Shortness of breath or difficulty breathing * Wake up at night short of breath * Chest pain * Cough * Swelling of your hands, feet, or legs * More fatigued or tired with your normal activity * Palpitations - sudden fast heart beats WEIGHT * Weigh yourself every morning after using the bathroom. * Use the same scale. * Wear the same amount of clothing. * Write your weight down on a chart. * Call your Primary Care doctor if you gain more than 2-3 pounds in 1-2 days. MEDICATIONS * Use this discharge instruction sheet for medication instructions. * Take your medications at the time your doctor ordered. * Do not skip a dose of your medicines. * If you miss a dose of medicine, take it as soon as possible, but DO NOT DOUBLE A DOSE. * Read your medicine information when you get home. * Know all of the side effects of your medicine. If in doubt, ask your pharmacist * Call your Primary Care doctor's office if you have any side effects. * Be sure all of your doctors know what medicine and herbs you take (including cold, flu, and herbal medicine). Take the following with you to your follow-up doctor appointments: * Weight Chart * Medication List * List of questions Do not drink excessive alcohol, beer or wine. Current Hospital Diet Patient's current hospital diet: AHA Diet (Heart Healthy) Discharge Diet Recommended Diet: Low Sodium Diet (2gm Na) Pending Studies Studies pending at discharge: no Laboratory Results Lipid Panel Test 09/10/16 09:12 Range/Units Triglycerides Level 88 0-150 mg/dl Cholesterol Level 131 0-200 mg/dl HDL Cholesterol 73 mg/dl Cholesterol/HDL Ratio 1.8 LDL Cholesterol, Calculated 40 mg/dl Medical Emergencies . Who to Call and When: Call 911 or go to the Emergency Room if: * If at any time you feel your situation is an emergency * You have tightness or pain in your chest that does not go away with rest or Nitroglycerin * You are very short of breath even with rest . Non-Emergent Contact Non-Emergency issues call your: Primary Care Provider, Strainer Mill Operator . . "Provider Documentation" section prepared by Sanford Rodrigues. VTE Core Measure Inpt VTE Proph given/why not?: Other Anticoagulation
[2016-11-11 11:59] VITALS: BP 142/85; PULSE 67; TEMP 36.3; O2SAT 93
[2016-11-11] MEDS ORDERED: IPRATROPIUM BROMIDE/ALBUTEROL respimat INH INH SCH (17:00)
--- NOTE | 2016-11-11 18:23 | Discharge Summary ---
Discharge Summary Admission Date: Nov 05, 2016 at 06:23 Discharge Date: Nov 11, 2016 Discharge Disposition: Home Principal Diagnosis: acute diastolic CHF, COPD exacerbation Problems/Secondary Diagnoses: (1) CHF (congestive heart failure) Status: Chronic Immunizations: Have You Had Influenza Vaccine: Yes History of Tetanus Vaccine?: Yes History of Pneumococcal: Yes History of Hepatitis B Vaccine: No Procedures: echo: Interpretation Summary * Name: JARED MOSQUERA Study Date: 11/05/2016 03:05 PM BP: 138/71 mmHg * Patient Location: [facility]\S\N280\S\2 HR: 70 * : 1955 (M/d/yyyy) Gender: Male Height: 76 in * Age: 61 yrs Ethnicity: [place] Weight: 262 lb * Ordering Physician: Bala Cantu * Performed By: Jessa Fofana RDCS * * Reason For Study: Congestive heart failure, shortness of breath * BSA: 2.5 m2 * -- Conclusions -- * 1. Normal LV size. Mild concentric LVH. * 2. Normal LV systolic function. LVEF 60-65%. Flattened septum consistent with RV volume overload. * 3. Severely dilated RV, borderline RV function * 4. Severely dilated RA. * 5. Dilated IVC suggestive of elevated CVP (15 mmHg). * 6. Compared with prior studies on 02/27/2016, 01/14/2015: No significant changes. Procedure Details * A complete two-dimensional transthoracic echocardiogram was performed (2D, M- mode, Doppler and color flow Doppler). Left Ventricle * The left ventricle is grossly normal size. * There is mild concentric left ventricular hypertrophy. * Ejection Fraction = 60-65%. * Flattened septum is consistent with RV volume overload. Right Ventricle * The right ventricle is severely dilated. * The right ventricular systolic function is borderline reduced. Atria * The left atrial size is normal. * The right atrium is severely dilated. * No ASD detected; PFO is not assessed. Mitral Valve * The mitral valve is grossly normal. * There is mild mitral annular calcification. * Mitral stenosis is absent. * There is trace mitral regurgitation. Tricuspid Valve * The tricuspid valve is not well visualized, but is grossly normal. * There is no tricuspid stenosis. * Significant tricuspid regurgitation is absent. Aortic Valve * The aortic valve opens well. * No hemodynamically significant valvular aortic stenosis. * There is no significant aortic regurgitation. Pulmonic Valve * The pulmonary valve is inadequately visualized, but the Doppler data is adequate for interpretation. * Pulmonic stenosis is absent. * There is no significant pulmonary regurgitation. Great Vessels * The aortic root and proximal ascending aorta are normal sized. * No Doppler or imaging evidence of an aortic coarctation. Pericardium/Pleural * There is no pericardial effusion. Great Vessels * Dilated inferior vena cava with reduced collapsability with sniff indicates an elevated right atrial pressure of 15 mmHg Last Resulted CBC 11/07/16 05:31 Red Blood Count 3.30, Mean Corpuscular Volume 111.5, Mean Corpuscular Hemoglobin 33.9, Mean Corpuscular Hemoglobin Concent 30.4, Mean Platelet Volume 9.7, Neutrophils (%) (Auto) 94.1, Lymphocytes (%) (Auto) 3.5, Monocytes (%) ( Auto) 2.0, Eosinophils (%) (Auto) 0.0, Basophils (%) (Auto) 0.0, Neutrophils # ( Auto) 4.78, Lymphocytes # (Auto) 0.18, Monocytes # (Auto) 0.10, Eosinophils # ( Auto) 0.00, Basophils # (Auto) 0.00 Last Resulted BMP 11/11/16 10:35 Consultations: cardiology vascular surgery (for doppler negative asymmetric LE edema) Medication Reconciliation New Medications: Prednisone Tab (Prednisone) 10 Mg Tab 10 MG PO UD, #20 TAB 4 po x 2 days then 3 po x 2 days then 2 po x 2 days then 1 po x 2 days then stop Acetazolamide (Acetazolamide) 250 Mg Tab 250 MG PO BID@0900,1700, #28 TAB Metolazone (Metolazone) 5 Mg Tab 5 MG PO UD, #20 TAB Nitroglycerin (Nitrostat) 0.4 Mg/1 Tab Subl 0.4 MG SL UD PRN for Chest Pain, #30 Potassium Chloride (Klor-Con M20) 20 Meq Tabcr 10 MEQ PO DAILY, #30 Thiamine HCl (Vitamin B-1) 100 Mg Tab 100 MG PO QAM, #30 TAB Continued Medications: Amiodarone Hcl (Cordarone) 200 Mg Tab 200 MG PO BID Apixaban (Eliquis) 5 Mg Tab 5 MG PO BID Cyanocobalamin (Vitamin B-12) 1,000 Mcg Tab 1000 MCG PO DAILY, TAB Fluticasone Prop/Salmeterol (Advair Diskus 500/50 60 Dose) 1 Ea Aerp 1 PUFF INH BID Folic Acid (Folvite) 1 Mg Tab 1 MG PO DAILY, TAB Furosemide (Lasix) 20 Mg Tab 40 MG PO DAILY, TAB Ipratropium-Albuterol (Combivent Respimat) 1 Aer Aer 1 PUFFS INH QID PRN for SOB/Wheezing Ipratropium-Albuterol (Duoneb) 3 Ml Nebu 1 TREATMENT INH BID, INHA Metoprolol Tartrate (Lopressor) (Lopressor) 50 Mg Tab 50 MG PO TID Omeprazole (Prilosec) 20 Mg Cap 20 MG PO BID Simvastatin (Simvastatin) 40 Mg Tab 40 MG PO QPM Discontinued Medications: Prednisone Tab (Prednisone) 10 Mg Tab 10 MG PO DIRECTED, TAB take with food. 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 breathing feels at baseline. Acute on chronic diastolic CHF exacerbation: Stable/continue improving Echo in this admission shows diastolic dysfunction -continue diuretics - lasix daily, symptom triggered zaroxyln -no ACEi due to CKD/creatinine -educated on lifestyle importance - discussed that how he follows through ( changing eating habits vs vigilance and diuretics) is up to him, but that ignoring recommendations entirely will likely just have him have recurrent exacerbations- he did express understanding of that -CHF clinic f/u -BMP next week then periodically thereafter Possible 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 respiratory failure and COPD exacerbation and Cor pulmonale: Stable and improving History of COPD and tobacco abuse disorder, was having chronic respiratory failure home O2 dependent prior to the admission continue NCO 2, at rest he feels he is at baseline Will continue nebulizers wean steroids -Left Lower extremity swelling Improved doppler negative, already on anticoagulation likely asymmetric venous stasis PAF: Currently is NSR, stable Continue anticoagulated with Apixaban cont Amio, Toprol. DOMINIQUE on CKD stage III present on admission due to acute CHF exacerbation upon admission continue to follow up as outpt DVT proph -anticoagulated stable for discharge to home Total Time Spent: Greater than 30 minutes This includes examination of the patient, discharge planning, medication reconciliation, and communication with other providers. Discharge Instructions Please refer to the electronic Patient Visit Report (Discharge Instructions) for additional information. Additional Copies To Luis Azevedo M.D.
[2016-11-20] MEDS ORDERED: ACET-1325 PO (10:38)
[2016-11-20] MEDS ORDERED: OXGN (10:38)
[2016-11-20] MEDS ORDERED: LPR25 PO (10:38)
[2016-11-20] MEDS ORDERED: POTA1TAB97 PO (10:38)
[2016-11-20] MEDS ORDERED: SIMV40TA2 PO (10:38)
[2016-11-20] MEDS ORDERED: FRS/40 PO (10:38)
== END 2016-11-11 12:32 | disposition home or self-care (01) | DRG 291 ==
LOC: ENRESERVDT → ENRESERVTM → ENRESERV → EDBD 03:54 → C.EDB 03:56 → C.MED 06:23 → UNDOADMIN 06:23 → C.MED 11-08 16:19
PROVIDERS: ADMIT Internal Medicine; ATTEND Family Medicine
DX: I50.33 Acute on chronic diastolic (congestive) heart failure (principal); J96.22 Acute and chronic respiratory failure with hypercapnia; J96.21 Acute and chronic respiratory failure with hypoxia; N17.9 Acute kidney failure, unspecified; J44.1 Chronic obstructive pulmonary disease with (acute) exacerbation; I48.92 Unspecified atrial flutter; E87.2 Acidosis; I13.0 Hypertensive heart and chronic kidney disease with heart failure and stage 1 through stage 4 chronic kidney disease, or unspecified chronic kidney disease; N18.3 Chronic kidney disease, stage 3 (moderate); I48.0 Paroxysmal atrial fibrillation; I25.10 Atherosclerotic heart disease of native coronary artery without angina pectoris; I27.81 Cor pulmonale (chronic); G47.33 Obstructive sleep apnea (adult) (pediatric); R07.89 Other chest pain; I87.2 Venous insufficiency (chronic) (peripheral); E78.00 Pure hypercholesterolemia, unspecified; I27.2 Other secondary pulmonary hypertension; F10.10 Alcohol abuse, uncomplicated; S80.12XA Contusion of left lower leg, initial encounter; X58.XXXA Exposure to other specified factors, initial encounter; Y92.009 Unspecified place in unspecified non-institutional (private) residence as the place of occurrence of the external cause; M79.89 Other specified soft tissue disorders; Z53.29 Procedure and treatment not carried out because of patient's decision for other reasons; Z82.49 Family history of ischemic heart disease and other diseases of the circulatory system; Z79.51 Long term (current) use of inhaled steroids; Z79.52 Long term (current) use of systemic steroids; Z79.01 Long term (current) use of anticoagulants; Z79.899 Other long term (current) drug therapy; Z87.891 Personal history of nicotine dependence

== ENCOUNTER → 2016-11-14 | Outpatient (CLI) | payer BC ==
[~2016-11-14] MED LIST changes: +ACET-1325 PO; +CYAN10005 PO; -CYAN1CAP3 PO; +DMX250 PO; -FLV1 PO; +FOLI1TAB7 PO; +FRS/40 PO; +LPR25 PO; +MCRK20 PO; +NTRSLP4 SL; +OXGN; +POTA1TAB97 PO; +SIMV40TA2 PO; +THM100 PO; +ZRX5 PO
[2016-11-14 12:50] LABS: BLOOD UREA NITROGEN 51 mg/dl (7-18); BUN/CREATININE RATIO 31.9 (10-20); CALCIUM 8.8 mg/dl (8.5-10.1); CARBON DIOXIDE 35 mmol/L (21-32); CHLORIDE 94 mmol/L (98-107); GLUCOSE 103 mg/dl (70-99); POTASSIUM 3.6 mmol/L (3.5-5.1); SODIUM 138 mmol/L (136-145)
== END | disposition home or self-care (01) ==
LOC: C.LABBFT 11:26
PROVIDERS: ATTEND Internal Medicine
DX: N17.9 Acute kidney failure, unspecified (principal)

== ENCOUNTER → 2016-12-01 | Day surgery (SDC) | payer BC ==
[2016-11-20 10:40] VITALS: Ht 190.5 cm; Wt 105.9 kg
[~2016-12-01] VITALS: Ht 190.5 cm; Wt 105.9 kg
[~2016-12-01] MED LIST changes: +500ML BSS 0.3ML EPI 1:1000PF IRRIG ONE; +ACETAMINOPHEN 325 MG TAB PO PRN; +AMVISC PLUS 0.8ML SYRINGE INT OCU ONE; +ATROPINE SULFATE 0.1 MG/ML 5ML SYR IV PRN; +BRIMONIDINE TART 0.2% OP SOLN PER DROP CHARGE ONE; +BSS FLUSH ONE; -CYAN10005 PO; -DMX250 PO; +ENDOCOAT 0.85ML SYRINGE INT OCU ONE; +EpHEDrine SULFATE INJ 50 MG/ML AMP IV PRN; +EpINEphrine INJ 1MG/ML AMP 1 MG/ML AMP ONE; -FOLI1TAB7 PO; -FURO-85 PO; +LACTATED RINGER'S 1000ML 500 ML IV SCH; +LIDOCAINE 4% OP SOLN DROP CHARGE ONE; +LIDOCAINE 4% OP SOLN DROP CHARGE OPL SCH; +LIDOCAINE HCL 1% MPF 2 ML VIAL ONE; -MCRK20 PO; -METO50TA16 PO; +MIDAZOLAM HCL 1 MG/ML 2ML VIAL ONE; +MOXIFLOXACIN OPH SOLN PER DROP CHARGE ONE; +POVIDONE-IODINE OP SOLN 30 ML BTL ONE; -PRED10TA PO; +PROPARACAINE 0.5% OP SOLN PER DROP CHARGE OPL SCH; -THM100 PO; +TOBRAMYCIN/DEXAMETHASONE OPH OINT PER APPLN CHARGE ONE; -ZCR40 PO; -ZRX5 PO
[2016-12-01] MEDS: PHENYLEPHRINE HCL 2.5% OP SOLN PER DROP CHARGE OPL SCH ×2 (12:00→12:05)
[2016-12-01] MEDS: TROPICAMIDE 1% OP SOLN PER DROP CHARGE OPL SCH ×2 (12:01→12:06)
[2016-12-01] MEDS: CYCLOPENTOLATE HCL 1% OP SOLN PER DROP CHARGE OPL SCH ×2 (12:02→12:07)
[2016-12-01] MEDS: KETOROLAC 0.5% OP SOLN PER DROP CHARGE OPL SCH ×2 (12:03→12:08)
[2016-12-01] MEDS: MOXIFLOXACIN OPH SOLN PER DROP CHARGE OPL SCH ×2 (12:04→12:14)
--- NOTE | 2016-12-01 12:50 | History & Physical Bridge - [place] ---
H&P Re-Evaluation Bridge Note: I have examined the patient, reviewed the History & Physical and in the interval since the performance of the History & Physical I have noted the following changes of clinical significance: No changes noted
--- NOTE | 2016-12-01 13:21 | Discharge Instructions-SurgCtr ---
Discharge Instructions Visit Reason for Visit: Cataract Left Eye Discharge Discharge Diagnosis / Problem: cataract left eye Discharge Goals Goal(s): Improve function Activity Recommendations Activity Limitations: per Instructions/Follow-up section Lifting Limitations: no more than 5 pounds Anesthesia . Post Anesthesia Instructions: If you have had General Anesthesia or IV Sedation: * Do not drive today. * Resume driving when surgeon permits. * Do not make important decisions or sign legal documents today. * Call surgeon for: 1. Temperature elevations greater than 101 degrees F. 2. Uncontrollable pain. 3. Excessive bleeding. 4. Persistent nausea and vomiting. 5. Medication intolerance (nausea, vomiting or rash). * For nausea and vomiting use only clear liquids such as: tea, soda, bouillon until nausea subsides, then gradually increase diet as tolerated. * If you have any concerns or questions, call your surgeon's office. If physician is unavailable and it is an emergency, call 911 or go to the nearest emergency room. . Instructions / Follow-Up Instructions / Follow-Up ACTIVITY RECOMMENDATIONS: * Light activities * You may walk outside, read, watch television. * Mild irritation and blurred vision are common for the first few days, redness around the white part of the eye is common. MEDICATIONS: Resume previous medications unless instructed otherwise by your surgeon. Eye drops (today and tomorrow): Cipro - one drop in operative eye every 2 hours while awake Prednisolone 1% - one drop in operative eye every 2 hours while awake Bromfenac - one drop in operative eye once daily SPECIAL CARE INSTRUCTIONS: * If any problems or concerns, please call Dr. Sierra's office at . * Keep plastic shield taped over eye to sleep at night. * Keep plastic shield taped over eye except to administer eye drops. * Keep plastic shield on until office visit the following day. FOLLOW UP VISIT: Follow-up with Dr. Sierra in the [place] office as scheduled. If not already scheduled, please call the office at . Diet Recommendations Home Diet: resume previous diet Procedures Procedures Performed: Left Cataract Phacoemulsification With Intraocular Lens Implant Pending Studies Studies pending at discharge: no Medical Emergencies . Who to Call and When: Medical Emergencies: If at any time you feel your situation is an emergency, please call 911 immediately. . Non-Emergent Contact Non-Emergency issues call your: New Car Salesperson . . "Provider Documentation" section prepared by Bob Sierra.
--- NOTE | 2016-12-01 13:22 | [facility] Post Operative Brief Note ---
Immediate Operative Summary Operative Date Dec 01, 2016. Pre-Operative Diagnosis Left Eye Cataract Post-Operative Diagnosis Same Procedure(s) Performed Left Cataract Phacoemulsification With Intraocular Lens Implant Surgeon Dr Sierra Microstrategy Developer Surgeon(s) None Estimated Blood Loss 0ml Findings cataract left eye Specimens None Complication(s) None Disposition Recovery Room / PACU
--- NOTE | 2016-12-01 13:35 | OPERATIVE REPORT ---
DATE OF OPERATION: 12/01/2016 PREOPERATIVE DIAGNOSIS: Cataract, left eye. POSTOPERATIVE DIAGNOSIS: Cataract, left eye. PROCEDURE: Phacoemulsification cataract extraction with intraocular lens placement, left eye. SURGEON: Dr. Sierra. COMPLICATIONS: None. ESTIMATED BLOOD LOSS: None. ANESTHESIA: Topical with sedation. OPERATION AND FINDINGS: After informed consent was obtained in the holding area the patient was wheeled back to the Operating Room where cardiac monitoring leads and oxygen by nasal cannula was administered by Anesthesia. Gentle IV sedation was given, and the patient's left eye was prepped and draped in the usual sterile fashion. A wire lid speculum was placed into the left eye and the operating microscope was swung into position. Using 0.12 forceps and a Supersharp blade a paracentesis port was made 3 o'clock hours away from the 3 o'clock position of patient's left eye. 1% non-preserved Lidocaine was then injected into the anterior chamber for anesthesia. A 2.2 mm keratotome blade was then used to make a shelved clear corneal incision at the 3 o'clock position of his left eye. Amvisc was injected into the anterior chamber and a cystotome and Utrata forceps were used to perform a curvilinear capsulorrhexis. BSS on a hydrodissection cannula was used to hydrodissect the lens nucleus away from the capsular bag. The phacoemulsification handpiece was then used in a stop and chop fashion to remove the lens nucleus. The irrigation and aspiration handpiece was then used to remove the residual cortical material. Amvisc was injected into the capsular bag and anterior chamber and a Bausch \T\ Lomb MX60 17.5 Diopter intraocular lens was injected into the capsular bag. Irrigation and aspiration handpiece was used to remove the residual viscoelastic material. The wounds were hydrated and noted to be watertight. The wire lid speculum was removed from the eye. Vigamox, Brimonidine, and TobraDex ointment were placed on the eye and it was shielded. It should be noted that EndoCoat was used during the case to protect the cornea endothelium. DISPOSITION: The patient tolerated the procedure well and was wheeled to the post anesthesia care unit in stable condition. I attest to the content of the Intraoperative Record and any orders documented therein. Any exceptions are noted below. I attest to the content of the Intraoperative Record and any orders documented therein. Any exceptions are noted below. MTDD
[2016-12-01 13:40] VITALS: BP 135/77; PULSE 65; O2SAT 97
--- NOTE | 2016-12-01 13:48 | Anesthesia Progress Nt - [facility] ---
Anesthesia Post Op Note Date & Time Dec 01, 2016 at 13:48 Vital Signs Pain Intensity: 0 Vital Signs Past 12 Hours Date Time Temp Pulse Resp B/P Pulse Ox O2 Delivery O2 Flow Rate FiO2 12/01/16 13:40 65 20 135/77 97 Room Air 12/01/16 13:29 36.3 62 22 124/70 94 Nasal Cannula 4 12/01/16 11:53 36.5 67 20 143/87 96 Nasal Cannula 4 Notes Mental Status: alert / awake / arousable, participated in evaluation Pt Amnestic to Procedure: Yes Nausea / Vomiting: adequately controlled Pain: adequately controlled Airway Patency, RR, SpO2: stable & adequate BP & HR: stable & adequate Hydration State: stable & adequate Anesthetic Complications: no major complications apparent
== END | disposition home or self-care (01) ==
LOC: X.SURG 11:43
PROVIDERS: ATTEND Ophthalmology
DX: H25.12 Age-related nuclear cataract, left eye (principal); J44.9 Chronic obstructive pulmonary disease, unspecified; I10 Essential (primary) hypertension; I51.9 Heart disease, unspecified; Z87.891 Personal history of nicotine dependence

== ENCOUNTER → 2016-12-04 | Outpatient (CLI) | payer BC ==
[~2016-12-04] MED LIST changes: -500ML BSS 0.3ML EPI 1:1000PF IRRIG ONE; -ACETAMINOPHEN 325 MG TAB PO PRN; -AMVISC PLUS 0.8ML SYRINGE INT OCU ONE; -ATROPINE SULFATE 0.1 MG/ML 5ML SYR IV PRN; -BRIMONIDINE TART 0.2% OP SOLN PER DROP CHARGE ONE; -BSS FLUSH ONE; -ENDOCOAT 0.85ML SYRINGE INT OCU ONE; -EpHEDrine SULFATE INJ 50 MG/ML AMP IV PRN; -EpINEphrine INJ 1MG/ML AMP 1 MG/ML AMP ONE; -LACTATED RINGER'S 1000ML 500 ML IV SCH; -LIDOCAINE 4% OP SOLN DROP CHARGE ONE; -LIDOCAINE 4% OP SOLN DROP CHARGE OPL SCH; -LIDOCAINE HCL 1% MPF 2 ML VIAL ONE; -MIDAZOLAM HCL 1 MG/ML 2ML VIAL ONE; -MOXIFLOXACIN OPH SOLN PER DROP CHARGE ONE; -POVIDONE-IODINE OP SOLN 30 ML BTL ONE; -PROPARACAINE 0.5% OP SOLN PER DROP CHARGE OPL SCH; -TOBRAMYCIN/DEXAMETHASONE OPH OINT PER APPLN CHARGE ONE
[2016-12-04 17:42] LABS: BLOOD UREA NITROGEN 21 mg/dl (7-18); BUN/CREATININE RATIO 14.9 (10-20); CALCIUM 8.4 mg/dl (8.5-10.1); CARBON DIOXIDE 34 mmol/L (21-32); CHLORIDE 100 mmol/L (98-107); GLUCOSE 104 mg/dl (70-99); POTASSIUM 3.6 mmol/L (3.5-5.1); SODIUM 141 mmol/L (136-145)
== END | disposition home or self-care (01) ==
LOC: C.LABBFT 10:33
PROVIDERS: ATTEND Internal Medicine
DX: E87.1 Hypo-osmolality and hyponatremia (principal)

== ENCOUNTER → 2016-12-15 | Day surgery (SDC) | payer BC ==
[2016-12-12 14:22] VITALS: Ht 190.5 cm; Wt 105.9 kg
[~2016-12-15] VITALS: Ht 190.5 cm; Wt 105.9 kg
[~2016-12-15] MED LIST changes: +500ML BSS 0.3ML EPI 1:1000PF IRRIG ONE; +ACETAMINOPHEN 325 MG TAB PO PRN; +AMVISC PLUS 0.8ML SYRINGE INT OCU ONE; +ATROPINE SULFATE 0.1 MG/ML 5ML SYR IV PRN; +BRIMONIDINE TART 0.2% OP SOLN PER DROP CHARGE ONE; +BSS FLUSH ONE; +ENDOCOAT 0.85ML SYRINGE INT OCU ONE; +EpHEDrine SULFATE INJ 50 MG/ML AMP IV PRN; +EpINEphrine INJ 1MG/ML AMP 1 MG/ML AMP ONE; +LACTATED RINGER'S 1000ML 500 ML IV SCH; +LIDOCAINE 4% OP SOLN DROP CHARGE ONE; +LIDOCAINE 4% OP SOLN DROP CHARGE OPR SCH; +LIDOCAINE HCL 1% MPF 2 ML VIAL ONE; +MIDAZOLAM HCL 1 MG/ML 2ML VIAL ONE; +MOXIFLOXACIN OPH SOLN PER DROP CHARGE ONE; +POVIDONE-IODINE OP SOLN 30 ML BTL ONE; +PROPARACAINE 0.5% OP SOLN PER DROP CHARGE OPR SCH; +TOBRAMYCIN/DEXAMETHASONE OPH OINT PER APPLN CHARGE ONE
[2016-12-15] MEDS: PHENYLEPHRINE HCL 2.5% OP SOLN PER DROP CHARGE OPR SCH ×2 (10:15→10:20)
[2016-12-15] MEDS: TROPICAMIDE 1% OP SOLN PER DROP CHARGE OPR SCH ×2 (10:16→10:21)
[2016-12-15] MEDS: CYCLOPENTOLATE HCL 1% OP SOLN PER DROP CHARGE OPR SCH ×2 (10:17→10:22)
[2016-12-15] MEDS: KETOROLAC 0.5% OP SOLN PER DROP CHARGE OPR SCH ×2 (10:18→10:23)
[2016-12-15] MEDS: MOXIFLOXACIN OPH SOLN PER DROP CHARGE OPR SCH ×2 (10:19→10:29)
--- NOTE | 2016-12-15 11:10 | [facility] Post Operative Brief Note ---
Immediate Operative Summary Operative Date Dec 15, 2016. Pre-Operative Diagnosis Cataract right eye Post-Operative Diagnosis same Procedure(s) Performed Right Cataract Phacoemulsification With Intraocular Lens Implant Surgeon Dr Sierra Punch Press Operator Helper Surgeon(s) 0 Estimated Blood Loss 0 Findings cataract right eye Specimens 0 Complication(s) None Disposition Recovery Room / PACU
--- NOTE | 2016-12-15 11:10 | Discharge Instructions-SurgCtr ---
Discharge Instructions Date of Service Dec 15, 2016. Visit Reason for Visit: Right Cataract Discharge Discharge Diagnosis / Problem: cataract right eye Discharge Goals Goal(s): Improve function Activity Recommendations Activity Limitations: per Instructions/Follow-up section Lifting Limitations: no more than 5 pounds Anesthesia . Post Anesthesia Instructions: If you have had General Anesthesia or IV Sedation: * Do not drive today. * Resume driving when surgeon permits. * Do not make important decisions or sign legal documents today. * Call surgeon for: 1. Temperature elevations greater than 101 degrees F. 2. Uncontrollable pain. 3. Excessive bleeding. 4. Persistent nausea and vomiting. 5. Medication intolerance (nausea, vomiting or rash). * For nausea and vomiting use only clear liquids such as: tea, soda, bouillon until nausea subsides, then gradually increase diet as tolerated. * If you have any concerns or questions, call your surgeon's office. If physician is unavailable and it is an emergency, call 911 or go to the nearest emergency room. . Instructions / Follow-Up Instructions / Follow-Up ACTIVITY RECOMMENDATIONS: * Light activities * You may walk outside, read, watch television. * Mild irritation and blurred vision are common for the first few days, redness around the white part of the eye is common. MEDICATIONS: Resume previous medications unless instructed otherwise by your surgeon. Eye drops (today and tomorrow): Cipro - one drop in operative eye every 2 hours while awake Prednisolone 1% - one drop in operative eye every 2 hours while awake SPECIAL CARE INSTRUCTIONS: * If any problems or concerns, please call Dr. Sierra's office at . * Keep plastic shield taped over eye to sleep at night. * Keep plastic shield taped over eye except to administer eye drops. * Keep plastic shield on until office visit the following day. FOLLOW UP VISIT: Follow-up with Dr. Sierra in the [place] office as scheduled. If not already scheduled, please call the office at . Diet Recommendations Home Diet: resume previous diet Procedures Procedures Performed: Right Cataract Phacoemulsification With Intraocular Lens Implant Pending Studies Studies pending at discharge: no Medical Emergencies . Who to Call and When: Medical Emergencies: If at any time you feel your situation is an emergency, please call 911 immediately. . Non-Emergent Contact Non-Emergency issues call your: Dental Laboratory Technician Apprentice . . "Provider Documentation" section prepared by Bob Sierra.
[2016-12-15 11:12] VITALS: TEMP 36.6
--- NOTE | 2016-12-15 11:28 | Anesthesia Progress Nt - [facility] ---
Anesthesia Post Op Note Date & Time Dec 15, 2016 at 11:28 Vital Signs Pain Intensity: 0 Vital Signs Past 12 Hours Date Time Temp Pulse Resp B/P Pulse Ox O2 Delivery O2 Flow Rate FiO2 12/15/16 11:12 36.6 57 16 150/72 98 Room Air 12/15/16 10:10 36.5 57 16 145/74 96 Nasal Cannula 4 Notes Mental Status: alert / awake / arousable, participated in evaluation Pt Amnestic to Procedure: Yes Nausea / Vomiting: adequately controlled Pain: adequately controlled Airway Patency, RR, SpO2: stable & adequate BP & HR: stable & adequate Hydration State: stable & adequate Anesthetic Complications: no major complications apparent
[2016-12-15 11:35] VITALS: BP 139/66; PULSE 58; O2SAT 99
--- NOTE | 2016-12-15 11:46 | OPERATIVE REPORT ---
DATE OF OPERATION: 12/15/2016 PREOPERATIVE DIAGNOSIS: Cataract, right eye. POSTOPERATIVE DIAGNOSIS: Cataract, right eye. PROCEDURE: Phacoemulsification cataract extraction with intraocular lens placement, right eye. SURGEON: Dr. Sierra. COMPLICATIONS: None. ESTIMATED BLOOD LOSS: None. ANESTHESIA: Topical with sedation. OPERATION AND FINDINGS: After informed consent was obtained in the holding area the patient was wheeled back to the Operating Room where cardiac monitoring leads and oxygen by nasal cannula was administered by Anesthesia. Gentle IV sedation was given, and the patient's right eye was prepped and draped in usual sterile fashion. A wire lid speculum was placed into the right eye and the operating microscope was swung into position. Using 0.12 forceps and a Supersharp blade a paracentesis port was made 3 o'clock hours away from the 9 o'clock position of patient's right eye. 1% non-preserved Lidocaine was then injected into the anterior chamber for anesthesia. A 2.2 mm keratotome blade was then used to make a shelved clear corneal incision at the 9 o'clock position of his right eye. Amvisc was injected into the anterior chamber and a cystotome and Utrata forceps were used to perform a curvilinear capsulorrhexis. BSS on a hydrodissection cannula was used to hydrodissect the lens nucleus away from the capsular bag. The phacoemulsification handpiece was then used in a stop and chop fashion to remove the lens nucleus. The irrigation and aspiration handpiece was then used to remove the residual cortical material. Amvisc was injected into the capsular bag and anterior chamber and a Bausch \T\ Lomb MX60 17.5 Diopter intraocular lens was injected into the capsular bag. Irrigation and aspiration handpiece was used to remove the residual viscoelastic material. The wounds were hydrated and noted to be watertight. The wire lid speculum was removed from the eye. Vigamox, Brimonidine, and TobraDex ointment were placed on the eye and it was shielded. It should be noted that EndoCoat was used throughout the case to protect the cornea endothelium. DISPOSITION: The patient tolerated the procedure well and was wheeled to the post anesthesia care unit in stable condition. I attest to the content of the Intraoperative Record and any orders documented therein. Any exceptions are noted below. I attest to the content of the Intraoperative Record and any orders documented therein. Any exceptio ns are noted below.
== END | disposition home or self-care (01) ==
LOC: X.SURG 09:55
PROVIDERS: ATTEND Ophthalmology
DX: H25.11 Age-related nuclear cataract, right eye (principal); I10 Essential (primary) hypertension; J44.9 Chronic obstructive pulmonary disease, unspecified

== ENCOUNTER → 2017-01-01 | Outpatient (CLI) | payer BC ==
[~2017-01-01] MED LIST changes: -500ML BSS 0.3ML EPI 1:1000PF IRRIG ONE; -ACETAMINOPHEN 325 MG TAB PO PRN; -AMVISC PLUS 0.8ML SYRINGE INT OCU ONE; -ATROPINE SULFATE 0.1 MG/ML 5ML SYR IV PRN; -BRIMONIDINE TART 0.2% OP SOLN PER DROP CHARGE ONE; -BSS FLUSH ONE; -ENDOCOAT 0.85ML SYRINGE INT OCU ONE; -EpHEDrine SULFATE INJ 50 MG/ML AMP IV PRN; -EpINEphrine INJ 1MG/ML AMP 1 MG/ML AMP ONE; -LACTATED RINGER'S 1000ML 500 ML IV SCH; -LIDOCAINE 4% OP SOLN DROP CHARGE ONE; -LIDOCAINE 4% OP SOLN DROP CHARGE OPR SCH; -LIDOCAINE HCL 1% MPF 2 ML VIAL ONE; -MIDAZOLAM HCL 1 MG/ML 2ML VIAL ONE; -MOXIFLOXACIN OPH SOLN PER DROP CHARGE ONE; -POVIDONE-IODINE OP SOLN 30 ML BTL ONE; -PROPARACAINE 0.5% OP SOLN PER DROP CHARGE OPR SCH; -TOBRAMYCIN/DEXAMETHASONE OPH OINT PER APPLN CHARGE ONE
[2017-01-01 17:30] LABS: BLOOD UREA NITROGEN 23 mg/dl (7-18); BUN/CREATININE RATIO 15.5 (10-20); CALCIUM 8.6 mg/dl (8.5-10.1); CARBON DIOXIDE 33 mmol/L (21-32); CHLORIDE 103 mmol/L (98-107); GLUCOSE 118 mg/dl (70-99); POTASSIUM 4.4 mmol/L (3.5-5.1); SODIUM 141 mmol/L (136-145)
[2017-01-08 05:32] LABS: HEPATITIS C RNA TMA QUAL Not detected
== END | disposition home or self-care (01) ==
LOC: C.LABBFT 13:47
PROVIDERS: ATTEND Physician Assistant Medical
DX: E87.1 Hypo-osmolality and hyponatremia (principal); Z11.59 Encounter for screening for other viral diseases

== ENCOUNTER → 2017-07-15 | Outpatient (CLI) | payer BC ==
[2017-07-15 18:06] LABS: BLOOD UREA NITROGEN 37 mg/dl (7-18); BUN/CREATININE RATIO 20.7 (10-20); CALCIUM 8.4 mg/dl (8.5-10.1); CARBON DIOXIDE 33 mmol/L (21-32); CHLORIDE 99 mmol/L (98-107); GLUCOSE 120 mg/dl (70-99); POTASSIUM 3.7 mmol/L (3.5-5.1); SODIUM 138 mmol/L (136-145)
== END | disposition home or self-care (01) ==
LOC: C.LABBFT 14:19
PROVIDERS: ATTEND Physician Assistant Medical
DX: E87.6 Hypokalemia (principal)

== ENCOUNTER → 2017-07-30 | Outpatient (CLI) | payer BC ==
[2017-07-30 12:44] LABS: BLOOD UREA NITROGEN 15 mg/dl (7-18); BUN/CREATININE RATIO 9.5 (10-20); CALCIUM 8.2 mg/dl (8.5-10.1); CARBON DIOXIDE 32 mmol/L (21-32); CHLORIDE 97 mmol/L (98-107); CREATININE 1.59 mg/dl (0.60-1.40); GLUCOSE 105 mg/dl (70-99); POTASSIUM 3.8 mmol/L (3.5-5.1); SODIUM 136 mmol/L (136-145)
== END | disposition home or self-care (01) ==
LOC: C.LABBFT 10:10
PROVIDERS: ATTEND Physician Assistant Medical
DX: R60.9 Edema, unspecified (principal); E87.1 Hypo-osmolality and hyponatremia; N28.9 Disorder of kidney and ureter, unspecified

== ENCOUNTER → 2017-09-02 | Outpatient (CLI) | payer BC ==
[2017-09-02 17:49] LABS: BLOOD UREA NITROGEN 27 mg/dl (7-18); CALCIUM 8.1 mg/dl (8.5-10.1); CARBON DIOXIDE 33 mmol/L (21-32); CHLORIDE 93 mmol/L (98-107); CREATININE 1.81 mg/dl (0.60-1.40); GLUCOSE 102 mg/dl (70-99); POTASSIUM 3.5 mmol/L (3.5-5.1); SODIUM 130 mmol/L (136-145)
== END | disposition home or self-care (01) ==
LOC: C.LABBFT 11:31
PROVIDERS: ATTEND Nurse Practitioner
DX: I50.32 Chronic diastolic (congestive) heart failure (principal)

== ENCOUNTER → 2017-11-20 | Outpatient (CLI) | payer BC ==
[~2017-11-20] MED LIST changes: +CEFD300C3 PO; +DXY100 PO; +LSN20 PO; +NTRGSL/4 UT
[2017-11-20 17:08] LABS: BASO % 1.4 %; BASO ABS # 0.07 K/uL (0-0.2); EOS % 1.6 %; EOS ABS # 0.08 K/uL (0-0.5); HEMATOCRIT 42.4 % (42-52); HEMOGLOBIN 14.2 g/dL (14.0-18.0); LYMPH % 14.3 %; LYMPH ABS # 0.73 K/uL (1.2-3.4); MEAN CELL VOLUME 104.4 fL (80-100); MEAN CORPUSCULAR HGB CONC 33.5 g/dl (32-36); MEAN PLATELET VOLUME 10.4 fL (7.4-10.4); MONO % 11.4 %; MONO ABS # 0.58 K/uL (0.11-0.59); NEUT % 71.3 %; NEUT ABS # 3.64 K/uL (1.4-6.5); PLATELET COUNT 122 K/uL (130-400); RED CELL DISTRIBUTION WIDTH CV 13.9 % (11.5-14.5); RED CELL DISTRIBUTION WIDTH SD 52.8 fL (36.4-46.3)
[2017-11-20 17:32] LABS: ALBUMIN 3.2 gm/dl (3.4-5.0); ALT/SGPT 62 U/L (12-78); AST/SGOT 75 U/L (15-37); BLOOD UREA NITROGEN 19 mg/dl (7-18); CALCIUM 8.3 mg/dl (8.5-10.1); CARBON DIOXIDE 29 mmol/L (21-32); CREATININE 1.35 mg/dl (0.60-1.40); GLUCOSE 92 mg/dl (70-99); SODIUM 140 mmol/L (136-145)
[2017-11-20 17:40] LABS: ALKALINE PHOSPHATASE 154 U/L (45-117); TOTAL PROTEIN 6.6 gm/dl (6.4-8.2)
== END | disposition home or self-care (01) ==
LOC: C.LABBFT 15:01
PROVIDERS: ATTEND Internal Medicine
DX: R97.20 Elevated prostate specific antigen [PSA] (principal); R39.9 Unspecified symptoms and signs involving the genitourinary system; D64.9 Anemia, unspecified; R53.83 Other fatigue; R53.1 Weakness

== ENCOUNTER 2017-11-24 04:27 | Inpatient (IN) | payer BC ==
[~2017-11-24] VITALS: Ht 190.5 cm; Wt 104.4 kg
[~2017-11-24 04:27] MED LIST changes: -CEFD300C3 PO; -DXY100 PO; -LSN20 PO; -NTRGSL/4 UT
[2017-11-24] MEDS ORDERED: ALBUT/IPRATROP 3MG/0.5MG NEB 3 ML VIAL ONE (04:32)
[2017-11-24] MEDS ORDERED: ATROPINE SULFATE 0.1 MG/ML 5ML SYR ONE (04:46)
[2017-11-24] MEDS ORDERED: DOPamine 400MG / D5W 400 MG IV STA (04:48)
[2017-11-24] MEDS ORDERED: NTRGSL/4 UT (04:54)
--- NOTE | 2017-11-24 04:56 | EMERGENCY ROOM VISIT NOTE ---
History First contact with patient: 04:30 Chief Complaint: RIB PAIN Stated Complaint: RIB PAIN/SHORT OF BREATH History of Present Illness The patient is a 62 year old male who presents to the Emergency Room for evaluation of shortness of breath and right rib pain. Notes he had flu like illness over last few days with runny nose for which PCP had rx Tamiflu though yet to have started. Patient awoke this mornign with symptoms. Associated lightheaded/weak. He has been having chills/rigors since arrival. No nausea, vomiting, syncope, left/sub chest pain, leg swelling, productive cough. He is using his typical 5L NC O2. He has history of Afib on coumadin. Notes taking all medications as prescribed without accidental/purposeful OD. Is on bblocker , denies digoxin/ccb use. No history cardiac stents/surgery. Denies history of heart rates in the 30s. No trauma, injuries, falls. No medications prior to arrival. Exertion makes worse, rest/laying back makes better. Review of Systems See HPI for pertinent positives & negatives. A total of 10 systems reviewed and were otherwise negative. Past Medical/Surgical History Medical Problems: (1) Acute renal insufficiency (2) Acute respiratory failure with hypoxia (3) Atrial fibrillation with RVR (4) Bilateral lower leg cellulitis (5) CHF (congestive heart failure) (6) CHF exacerbation (7) COPD (chronic obstructive pulmonary disease) (8) Hyponatremia (9) PNA (pneumonia) Family History Cancer Heart disease Hypertension Social History Smoking Status: Former Smoker Drug Use: none Marital Status: Housing Status: lives with significant other Occupation Status: employed Current/Historical Medications Scheduled Acetazolamide (Acetazolamide), 1 TAB PO QPM Amiodarone Hcl (Cordarone), 200 MG PO BID Apixaban (Eliquis), 5 MG PO BID Fluticasone Prop/Salmeterol (Advair Diskus 500/50 60 Dose), 1 PUFF INH BID Furosemide (Lasix), 40 MG PO BID Home O2 Therapy (Oxygen), 4 LITERS NA CONTINOUS Ipratropium-Albuterol (Duoneb), 1 TREATMENT INH BID Metoprolol Tartrate (Lopressor), 25 MG PO TID Omeprazole (Prilosec), 20 MG PO BID Potassium Chloride (K-Tab), 1 TAB PO BID Simvastatin (Zocor), 40 MG PO QPM Scheduled PRN Ipratropium-Albuterol (Combivent Respimat), 1 PUFFS INH QID PRN for SOB/Wheezing Nitroglycerin (Nitrostat), 0.4 MG UT DIRECTED PRN for chest pain Physical Exam Vital Signs Date Time Temp Pulse Resp B/P (MAP) Pulse Ox O2 Delivery O2 Flow Rate FiO2 11/24/17 06:35 64 20 123/53 93 Nasal Cannula 6.0 11/24/17 06:05 39.5 63 20 129/58 91 Nasal Cannula 6.0 11/24/17 05:45 62 20 135/54 92 Nasal Cannula 6.0 11/24/17 05:30 61 20 136/55 91 Nasal Cannula 6.0 11/24/17 05:15 63 20 143/54 89 Nasal Cannula 6.0 11/24/17 05:04 64 20 133/52 91 Nasal Cannula 5.0 11/24/17 04:51 63 11/24/17 04:48 56 11/24/17 04:47 63 24 106/52 92 Nasal Cannula 5.0 11/24/17 04:42 31 11/24/17 04:38 0 11/24/17 04:37 57 11/24/17 04:31 38.1 65 21 153/59 90 Nasal Cannula 4.0 Physical Exam GENERAL: Patient is ill appearing and mild distress. HEENT: No acute trauma, normocephalic atraumatic, mucous membranes dry, no nasal congestion, no scleral icterus. NECK: No stridor, no adenopathy, no meningismus, trachea is midline. LUNGS: Crackles bilateral bases. Mild dyspnea. Equal bilaterally. No wheeze appreciated HEART: Bradycardic/irregular. No murmurs, rubs, gallops appreciated. ABDOMEN: Soft, nontender, bowel sounds positive, no masses appreciated, no peritonitis. BACK: No midline tenderness, no CVA tenderness EXTREMITIES: Normal motion all extremities, no cyanosis, no edema. NEUROLOGIC: Alert and oriented, no acute motor or sensory deficits, no focal weakness, cranial nerves grossly intact. SKIN: No rash, no jaundice, no diaphoresis. Medical Decision & Procedures Laboratory Results 11/24/17 04:30 Red Blood Count 4.27, Mean Corpuscular Volume 104.0, Mean Corpuscular Hemoglobin 35.8, Mean Corpuscular Hemoglobin Concent 34.5, Mean Platelet Volume 10.6, Neutrophils (%) (Auto) 85.1, Lymphocytes (%) (Auto) 4.5, Monocytes (%) ( Auto) 9.6, Eosinophils (%) (Auto) 0.4, Basophils (%) (Auto) 0.2, Neutrophils # ( Auto) 12.05, Lymphocytes # (Auto) 0.64, Monocytes # (Auto) 1.36, Eosinophils # ( Auto) 0.06, Basophils # (Auto) 0.03 11/24/17 04:30 Test 11/24/17 04:30 11/24/17 04:48 11/24/17 04:56 11/24/17 05:02 White Blood Count 14.17 K/uL (4.8-10.8) Red Blood Count 4.27 M/uL (4.7-6.1) Hemoglobin 15.3 g/dL (14.0-18.0) Hematocrit 44.4 % (42-52) Mean Corpuscular Volume 104.0 fL (80-100) Mean Corpuscular Hemoglobin 35.8 pg (25-34) Mean Corpuscular Hemoglobin Concent 34.5 g/dl (32-36) Platelet Count 144 K/uL (130-400) Mean Platelet Volume 10.6 fL (7.4-10.4) Neutrophils (%) (Auto) 85.1 % Lymphocytes (%) (Auto) 4.5 % Monocytes (%) (Auto) 9.6 % Eosinophils (%) (Auto) 0.4 % Basophils (%) (Auto) 0.2 % Neutrophils # (Auto) 12.05 K/uL (1.4-6.5) Lymphocytes # (Auto) 0.64 K/uL (1.2-3.4) Monocytes # (Auto) 1.36 K/uL (0.11-0.59) Eosinophils # (Auto) 0.06 K/uL (0-0.5) Basophils # (Auto) 0.03 K/uL (0-0.2) RDW Standard Deviation 52.4 fL (36.4-46.3) RDW Coefficient of Variation 13.7 % (11.5-14.5) Immature Granulocyte % (Auto) 0.2 % Immature Granulocyte # (Auto) 0.03 K/uL (0.00-0.02) Prothrombin Time 10.8 SECONDS (9.0-12.0) Prothromb Time International Ratio 1.0 (0.9-1.1) Est Creatinine Clear Calc Drug Dose 63.5 ml/min Estimated GFR () 53.6 Estimated GFR (Non- 46.2 BUN/Creatinine Ratio 9.8 (10-20) Calcium Level 8.1 mg/dl (8.5-10.1) Total Bilirubin 0.7 mg/dl (0.2-1) Direct Bilirubin 0.3 mg/dl (0-0.2) Aspartate Amino Transf (AST/SGOT) 80 U/L (15-37) Alanine Aminotransferase (ALT/SGPT) 66 U/L (12-78) Alkaline Phosphatase 197 U/L (45-117) Total Creatine Kinase 55 U/L (39-308) Creatine Kinase MB 1.3 ng/ml (0.5-3.6) Creatine Kinase MB Ratio 2.4 (0-3.0) Troponin I < 0.015 ng/ml (0-0.045) Total Protein 7.3 gm/dl (6.4-8.2) Albumin 3.4 gm/dl (3.4-5.0) Influenza Type A (RT-PCR) Neg for Influ A (NEG) Influenza Type B (RT-PCR) Neg for Influ B (NEG) Bedside Lactic Acid Venous 2.48 mmol/L (0.90-1.70) Test 11/24/17 05:06 11/24/17 05:18 Bedside Hemoglobin 15.3 g/dl (14.0-18.0) Bedside Hematocrit 45 % (42-52) Bedside Sodium 138 mEq/L (135-144) Bedside Potassium 4.1 mEq/L (3.3-5.0) Bedside Chloride 98 mEq/L (101-112) Bedside Total CO2 23 mEq/l (24-31) Anion Gap 22.0 mmol/L (16-25) Bedside Blood Urea Nitrogen 16 mg/dl (7-18) Bedside Creatinine 1.7 mg/dl (0.6-1.3) Bedside Glucose (other) 98 mg/dl (70-99) Bedside Ionized Calcium (Carolann) 1.03 mmol/l (1.12-1.32) Arterial Blood pH 7.37 (7.35-7.45) Arterial Blood Partial Pressure CO2 45 mmHg (35-46) Arterial Blood Partial Pressure O2 58 mm/Hg (80-95) Arterial Blood HCO3 26 mmol/L (19-24) Arterial Blood Oxygen Saturation 87.0 % (90-95) Arterial Blood Base Excess 0.1 mEq/L (-9-1.8) Arterial Blood Gas Delivery 6L Mau Test POS (POS) Medications Administered Medications (Trade) Dose Ordered Sig/Franklyn Route Start Time Stop Time Status Last Admin Dose Admin Atropine Sulfate (Atropine Sulfate 0.1mg/ml Inj) 0.5 mg STK-MED ONCE .ROUTE 11/24/17 04:46 11/24/17 04:47 DC 11/24/17 04:46 0.5 MG Dopamine HCl/ Dextrose 0 ml @ 0 mls/hr Q0M STAT IV 11/24/17 04:48 11/24/17 04:49 DC 11/24/17 04:53 12 MLS/HR Ondansetron HCl (Zofran Inj) 4 mg NOW STAT IV 11/24/17 05:00 11/24/17 05:01 DC 11/24/17 05:02 4 MG Sodium Chloride 1,000 ml @ 999 mls/hr Q1H1M STAT IV 11/24/17 05:08 11/24/17 06:08 DC 11/24/17 05:13 999 MLS/HR Acetaminophen (Tylenol Tab) 1,000 mg NOW STAT PO 11/24/17 05:10 11/24/17 05:11 DC 11/24/17 05:16 1,000 MG Piperacillin Sod/ Tazobactam Sod (Zosyn Iv) 4.5 gm NOW STAT IV 11/24/17 05:17 11/24/17 05:19 DC 11/24/17 05:27 4.5 GM Vancomycin HCl 2000 mg/Sodium Chloride 540 ml @ 200 mls/hr ONE STAT IV 11/24/17 05:17 11/24/17 07:58 11/24/17 05:58 200 MLS/HR Pantoprazole Sodium (Protonix Tab) 40 mg NOW STAT PO 11/24/17 06:16 11/24/17 06:34 DC 11/24/17 06:35 40 MG Potassium Chloride (Klor-Con M10) 20 meq BID STAT PO 11/24/17 06:16 11/24/17 06:34 DC 11/24/17 06:35 20 MEQ Medical Decision Differential: Sepsis, Infectious (UTI/Pneumonia/Meningitis/etc), Metabolic/ Electrolyte Abnormality, Cardiac, Dehydration, Anemia, Hepatic, Endocrine, Toxicologic, Neurologic, amongst other pathologies entertained. 62 yr old male arrives for chest pains and weakness. URI symptoms a few days ago, prescribed Tamiflu but hadn't started it as URI improving. Called emergently to his bedside on arrival to find him acutely ill appearing in severe bradycardia with mild hypotension. Brought to trauma bay where Atropine given with improvement in HR and dopamine gtt started. Did develop a bit of nausea with atropine but this does not seem to have lasted very long. He was not nauseous with intial bradycardia and I feel that it was not vagal, especially given it required dopamine to improve. BP improved and holding steady on dopamine. He is found to be septic with moderate lactic acidosis, fever, mild hypotension. Unclear source though I suspect lung related. Flu PCR negative thus will hold from tamiflu. No wheezing on exam thus I do not feel this is COPD and he is brearthing on his NC O2 at this time. Will hold off on steroids at this time and he does not need nebs. Does have some crackles bases which I suspect is bradycardic related as by exam he is clinically dehydrated. With improvement in HR, the baseline lactic acidosis and I feel is he dehydrated will started with fluid resus to 1L NSS to start and then re-assess in ICU by hospitalist/ICU time. Both hospitalist and ICU involved early in patient care. He is vastly improved from arrival and tolerating low dose dopamine well. Medication Reconcilliation Current Medication List: was personally reviewed by me Blood Pressure Screening Patient's blood pressure: Low blood pressure Impression Primary Impression: Sepsis Additional Impressions: Symptomatic bradycardia Dehydration Critical Care I have personally spent greater than 45 minutes of critical care time in the direct management of this patient. This was a life/limb threatening event. This includes time spent evaluating patient, direct bedside care, chart review, placing orders, interpretation of diagnostic studies, discussion with consultants, patient, and family members, as well as other required patient management activities. This 45 minutes is in excess of all separately billable procedures. Departure Information Referrals Azevedo, Christopher E.,M.D. (PCP) Patient Instructions My [facility] Problem Qualifiers
[2017-11-24] MEDS ORDERED: ONDANSETRON INJ 2 MG/ML 2 ML VIAL IV STA (05:00)
[2017-11-24 05:08] LABS: BASO % 0.2 %; BASO ABS # 0.03 K/uL (0-0.2); EOS % 0.4 %; EOS ABS # 0.06 K/uL (0-0.5); HEMATOCRIT 44.4 % (42-52); HEMOGLOBIN 15.3 g/dL (14.0-18.0); IG# 0.03 K/uL (0.00-0.02); LYMPH % 4.5 %; LYMPH ABS # 0.64 K/uL (1.2-3.4); MEAN CORPUSCULAR HEMOGLOBIN 35.8 pg (25-34); MEAN CORPUSCULAR HGB CONC 34.5 g/dl (32-36); MEAN PLATELET VOLUME 10.6 fL (7.4-10.4); MONO % 9.6 %; MONO ABS # 1.36 K/uL (0.11-0.59); NEUT % 85.1 %; NEUT ABS # 12.05 K/uL (1.4-6.5); PLATELET COUNT 144 K/uL (130-400); RED CELL DISTRIBUTION WIDTH CV 13.7 % (11.5-14.5); RED CELL DISTRIBUTION WIDTH SD 52.4 fL (36.4-46.3); WHITE BLOOD COUNT 14.17 K/uL (4.8-10.8)
[2017-11-24] MEDS ORDERED: SODIUM CHLORIDE 0.9% 1000ML 1,000 ML IV STA (05:08)
[2017-11-24] MEDS ORDERED: ACETAMINOPHEN 500 MG TAB PO STA (05:10)
[2017-11-24] MEDS ORDERED: PIPERACILLIN/TAZOBACTAM 4.5 GM/100ML D5W IV STA (05:17)
[2017-11-24] MEDS ORDERED: VANCOMYCIN INJ 2,000 MG in SODIUM CHLORIDE 0.9% 500ML 500 ML IV STA (05:17)
[2017-11-24 05:21] LABS: ISTAT CREATININE 1.7 mg/dl (0.6-1.3); ISTAT IONIZED CALCIUM 1.03 mmol/l (1.12-1.32); ISTAT POTASSIUM 4.1 mEq/L (3.3-5.0)
[2017-11-24 05:24] LABS: ALBUMIN 3.4 gm/dl (3.4-5.0); ALT/SGPT 66 U/L (12-78); AST/SGOT 80 U/L (15-37); BLOOD UREA NITROGEN 15 mg/dl (7-18); CALCIUM 8.1 mg/dl (8.5-10.1); CARBON DIOXIDE 28 mmol/L (21-32); CREATININE 1.57 mg/dl (0.60-1.40); GLUCOSE 93 mg/dl (70-99); POTASSIUM 3.8 mmol/L (3.5-5.1); SODIUM 136 mmol/L (136-145)
[2017-11-24 05:30] LABS: ALKALINE PHOSPHATASE 197 U/L (45-117); CKMB 1.3 ng/ml (0.5-3.6); TOTAL PROTEIN 7.3 gm/dl (6.4-8.2)
[2017-11-24] MEDS ORDERED: VANCOMYCIN CONSULT ACTIVE PRN ×2 (05:30→06:15)
[2017-11-24 05:57] LABS: INFLUENZA A PCR Neg for Influ A (NEG); INFLUENZA B PCR Neg for Influ B (NEG)
[2017-11-24] MEDS ORDERED: DOPamine 400MG / D5W 400 MG IV PRN (06:07)
[2017-11-24] MEDS ORDERED: ACETAMINOPHEN 325 MG TAB PO PRN (06:15)
[2017-11-24] MEDS ORDERED: FENTANYL CITRATE INJ 50 MCG/1 ML 2 ML VIAL IV PRN (06:15)
[2017-11-24] MEDS ORDERED: PIPERACILL/TAZOBAC CONSULT ACTIVE PRN (06:15)
[2017-11-24] MEDS ORDERED: ICU PROTOCOL FOR HYPERGLYCEMIA PRN (06:15)
[2017-11-24] MEDS ORDERED: PANTOprazole SOD 40 MG TAB PO STA (06:16)
[2017-11-24] MEDS ORDERED: POTASSIUM CHLORIDE 10 MEQ TABCR PO STA (06:16)
[2017-11-24] MEDS ORDERED: NITROGLYCERIN 0.4 MG SL PER TAB CHARGE UT PRN (06:30)
--- NOTE | 2017-11-24 06:41 | DIAGNOSTIC IMAGING REPORT ---
CHEST ONE VIEW PORTABLE CLINICAL HISTORY: Fever. COMPARISON STUDY: Chest radiograph November 05, 2016. FINDINGS: There is no pneumothorax or pleural effusion. There is no lobar consolidation. Bilateral lower lung interstitial thickening is noted. Cardiomediastinal silhouette is stable. IMPRESSION: Bilateral lower lung interstitial thickening which may reflect an infectious process. No lobar consolidation. Electronically signed by: Chay Jimenez M.D. 11/24/2017 6:40 AM Dictated Date/Time: 11/24/2017 6:38 AM
--- NOTE | 2017-11-24 06:52 | Critical Care Consultation ---
Critical Care Consultation Date of Consultation: Nov 24, 2017. Attending Physician: Reason for Consultation: 62-year-old male with acute onset of RIGHT-sided rib pain with associated fevers and rigors. Upon presentation to the emergency department, the patient had an episode of bradycardia into the 20s which responded to IV atropine 1 currently requiring dopamine drip. History of Present Illness Patient is a 62-year-old male with a significant past medical history of A. fib , CHF, COPD, hyponatremia, and acute renal failure who presented to the emergency department this evening with acute onset of RIGHT-sided rib pain. On of this past week, the patient reports that he was feeling achy and also had nasal congestion and a dry cough. He saw his primary care provider on Thursday and was placed on Tamiflu, however he was unable to fill the prescription as they had no 30 mg tablets for him to take. His symptoms improved over the next 24 hours, however, and he did not car any medications at that point anyway. He did well throughout the weekend, but this evening while in bed he was tossing and turning and noticed a sharp and sudden onset of pain to the RIGHT-sided lateral portion of his ribs. He felt as though he "pulled a muscle" and couldn't get comfortable. Shortly after, he developed "the shakes" and could not get warm. He did take a nitroglycerin glycerin tablet 1 time as he was concerned for the RIGHT-sided rib pain. The nitroglycerin were provided no relief. Patient was brought to the emergency department by EMS for further evaluation and management. Upon arrival to the ER, the patient had a heart rate in the 60s with a systolic blood pressure in the 160s. Shortly after arrival, the patient was found to have a heart rate that declined into the 20s. He received a one-time dose of 0.5 mg atropine intravenously followed by a drip of dopamine. This is sustained a heart rate in the 60s with a blood pressure in the 130s. Patient was found to be febrile with a temp of 38.5C. He has a leukocytosis of greater than 14,000. He is not anemic. ABG was not overly impressive. He has no significant electrolyte abnormalities. Slight elevation of his creatinine at 1.57 appears normal for the patient. Lactic acid from point care was elevated at 2.48. Cardiac enzymes were normal limits. AST was slightly elevated at 80. Influenza swabs were negative. Upon my evaluation of the patient in the emergency department, he is resting comfortably. At this point, he denies any complaints of pain. The patient reports that during the episode of bradycardia he felt as though he was going to pass out. He reports that he has experienced this one time previously while hospitalized and "severely dehydrated". Currently, the patient denies any headaches, dizziness, lightheadedness, chest pain, palpitations, worsening shortness of breath, pleuritic pain, nausea, vomiting, hematochezia, or melena. The patient does report increasing urinary frequency as well as increased urinary output over the last few days. His PSA was checked in the outpatient most recently has a concern for worsening prostate disease. Patient does admit to drinking 3-4 beers every day. He denies having ever gone through withdrawal like symptoms with cessation of drinking. He lives at home with his . He is a former smoker. Past Medical/Surgical History Medical Problems: (1) Acute renal insufficiency (2) Acute respiratory failure with hypoxia (3) Atrial fibrillation with RVR (4) Bilateral lower leg cellulitis (5) CHF (congestive heart failure) (6) CHF exacerbation (7) COPD (chronic obstructive pulmonary disease) (8) Hyponatremia (9) PNA (pneumonia) (10) SIRS (systemic inflammatory response syndrome) (11) Symptomatic bradycardia Family History Cancer Heart disease Hypertension noncontributory Social History Smoking Status: Former Smoker Smokeless Tobacco Use: No Alcohol Use: heavy Drug Use: none Marital Status: Housing Status: lives with significant other Occupation Status: employed Allergies Coded Allergies: No Known Allergies (Unverified , 12/15/16) Home Medications Scheduled Acetazolamide (Acetazolamide), 1 TAB PO QPM Amiodarone Hcl (Cordarone), 200 MG PO BID Apixaban (Eliquis), 5 MG PO BID Fluticasone Prop/Salmeterol (Advair Diskus 500/50 60 Dose), 1 PUFF INH BID Furosemide (Lasix), 40 MG PO BID Home O2 Therapy (Oxygen), 4 LITERS NA CONTINOUS Ipratropium-Albuterol (Duoneb), 1 TREATMENT INH BID Metoprolol Tartrate (Lopressor), 25 MG PO TID Omeprazole (Prilosec), 20 MG PO BID Potassium Chloride (K-Tab), 1 TAB PO BID Simvastatin (Zocor), 40 MG PO QPM Scheduled PRN Ipratropium-Albuterol (Combivent Respimat), 1 PUFFS INH QID PRN for SOB/Wheezing Nitroglycerin (Nitrostat), 0.4 MG UT DIRECTED PRN for chest pain Current Inpatient Medications Current Inpatient Medications Medications (Trade) Dose Ordered Sig/Frank[place] Route Start Time Stop Time Status Last Admin Dose Admin Vancomycin HCl 2000 mg/Sodium Chloride 540 ml @ 200 mls/hr ONE STAT IV 11/24/17 05:17 11/24/17 07:58 11/24/17 05:58 200 MLS/HR Miscellaneous Information (Consult) 1 ea UD PRN N/A 11/24/17 05:30 12/24/17 05:29 Vancomycin HCl 1000 mg/Sodium Chloride 270 ml @ 125 mls/hr Q12 IV 11/24/17 09:00 12/01/17 08:59 UNV Miscellaneous Information (Consult) 1 ea UD PRN N/A 11/24/17 06:15 12/24/17 06:14 UNV Piperacillin Sod/ Tazobactam Sod 3.375 gm/Dextrose 115 ml @ 28.75 mls/ hr Q8 IV 11/24/17 14:00 12/01/17 13:59 UNV Miscellaneous Information (Consult) 1 ea UD PRN N/A 11/24/17 06:15 12/24/17 06:14 UNV Albuterol/ Ipratropium (Duoneb) 3 ml Q4HWA INH 11/24/17 08:00 12/24/17 07:59 UNV Acetaminophen (Tylenol Tab) 650 mg Q4H PRN PO 11/24/17 06:15 12/24/17 06:14 UNV Fentanyl Citrate (Fentanyl Inj) 25 mcg Q1H PRN IV 11/24/17 06:15 12/08/17 06:14 UNV Dopamine HCl/ Dextrose 0 ml @ 0 mls/hr Q0M STAT IV 11/24/17 06:07 11/24/17 06:08 UNV Miscellaneous Information (Icu Protocol For Hyperglycemia) 1 ea PRN PRN N/A 11/24/17 06:15 11/26/17 06:14 UNV Acetazolamide (Diamox Tab) 250 mg QPM PO 11/24/17 21:00 12/24/17 20:59 UNV Salmeterol Xinafoate/ Fluticasone (Advair Diskus 500/50 Inh) 1 puff BID INH 11/24/17 09:00 12/24/17 08:59 UNV Furosemide (Lasix Tab) 40 mg BID PO 11/24/17 09:00 12/24/17 08:59 UNV Nitroglycerin (Nitrostat Tab) 0.4 mg TID PRN UT 11/24/17 06:30 12/24/17 06:29 UNV Simvastatin (Zocor Tab) 40 mg QPM PO 11/24/17 21:00 12/24/17 20:59 UNV Pantoprazole Sodium (Protonix Tab) 40 mg NOW STAT PO 11/24/17 06:16 11/24/17 06:17 UNV Potassium Chloride (Klor-Con M10) 20 meq BID STAT PO 11/24/17 06:16 11/24/17 06:17 UNV Review of Systems A complete 10-point Review of Systems was discussed with the patient, with pertinent positives and negatives listed in the History of Present Illness. All remaining Review of Systems questions can be considered negative unless otherwise specified. Physical Exam Date Time Temp Pulse Resp B/P (MAP) Pulse Ox O2 Delivery O2 Flow Rate FiO2 11/24/17 06:05 39.5 63 20 129/58 91 Nasal Cannula 6.0 11/24/17 05:45 62 20 135/54 92 Nasal Cannula 6.0 11/24/17 05:30 61 20 136/55 91 Nasal Cannula 6.0 11/24/17 05:15 63 20 143/54 89 Nasal Cannula 6.0 11/24/17 05:04 64 20 133/52 91 Nasal Cannula 5.0 11/24/17 04:51 63 11/24/17 04:48 56 11/24/17 04:47 63 24 106/52 92 Nasal Cannula 5.0 11/24/17 04:42 31 11/24/17 04:38 0 11/24/17 04:37 57 11/24/17 04:31 38.1 65 21 153/59 90 Nasal Cannula 4.0 VITAL SIGNS - Vital signs and nursing notes were reviewed. GENERAL - 62-year-old male appearing his stated age who is in no acute distress. Communicates well with provider and answers questions appropriately. HEAD - NC/AT. EYES - PERRL with EOMI bilaterally. Sclera anicteric. EARS - No deformities of external structures noted on gross examination bilaterally. NOSE - Midline and without cyanosis. No epistaxis or purulent drainage noted. MOUTH/OROPHARYNX - Without perioral cyanosis. Buccal mucosa pink and dry. NECK - Neck with FROM. Supple to palpation. LUNGS - Chest wall symmetric without accessory muscle use, intercostals retractions, or central cyanosis. Normal vesicular breath sounds CTA B/L. No wheezes, rales, or rhonchi appreciated. CARDIAC - RRR with S1/S2. No murmur, rubs, or gallops appreciated. No reproducible tenderness to palpation appreciated over the anterior chest wall. ABDOMEN - Abdominal contour protuberant and without pulsations or visible masses. BS normoactive all four quadrants. No tenderness, palpable masses, hepatosplenomegaly, or ascites noted. EXTREMITIES - No clubbing or peripheral cyanosis. No pretibial edema present. +3 /5 radial and dorsalis pedis pulses palpated throughout. +5/5 strength noted in UE/LE bilaterally. NEUROLOGIC - Cranial nerves II through XII grossly intact. Sensory intact to light touch throughout. PSYCH - A&Ox3 and cooperates fully with examiner. Pt is very pleasant and interacts well with examiner. Laboratory Results Last 24 Hours Test 11/24/17 04:30 11/24/17 04:48 11/24/17 05:02 11/24/17 05:06 White Blood Count 14.17 K/uL Red Blood Count 4.27 M/uL Hemoglobin 15.3 g/dL Hematocrit 44.4 % Mean Corpuscular Volume 104.0 fL Mean Corpuscular Hemoglobin 35.8 pg Mean Corpuscular Hemoglobin Concent 34.5 g/dl Platelet Count 144 K/uL Mean Platelet Volume 10.6 fL Neutrophils (%) (Auto) 85.1 % Lymphocytes (%) (Auto) 4.5 % Monocytes (%) (Auto) 9.6 % Eosinophils (%) (Auto) 0.4 % Basophils (%) (Auto) 0.2 % Neutrophils # (Auto) 12.05 K/uL Lymphocytes # (Auto) 0.64 K/uL Monocytes # (Auto) 1.36 K/uL Eosinophils # (Auto) 0.06 K/uL Basophils # (Auto) 0.03 K/uL RDW Standard Deviation 52.4 fL RDW Coefficient of Variation 13.7 % Immature Granulocyte % (Auto) 0.2 % Immature Granulocyte # (Auto) 0.03 K/uL Prothrombin Time 10.8 SECONDS Prothromb Time International Ratio 1.0 Sodium Level 136 mmol/L Potassium Level 3.8 mmol/L Chloride Level 100 mmol/L Carbon Dioxide Level 28 mmol/L Anion Gap 8.0 mmol/L 22.0 mmol/L Blood Urea Nitrogen 15 mg/dl Creatinine 1.57 mg/dl Est Creatinine Clear Calc Drug Dose 63.5 ml/min Estimated GFR () 53.6 Estimated GFR (Non- 46.2 BUN/Creatinine Ratio 9.8 Random Glucose 93 mg/dl Calcium Level 8.1 mg/dl Magnesium Level 2.1 mg/dl Total Bilirubin 0.7 mg/dl Direct Bilirubin 0.3 mg/dl Aspartate Amino Transf (AST/SGOT) 80 U/L Alanine Aminotransferase (ALT/SGPT) 66 U/L Alkaline Phosphatase 197 U/L Total Creatine Kinase 55 U/L Creatine Kinase MB 1.3 ng/ml Creatine Kinase MB Ratio 2.4 Troponin I < 0.015 ng/ml Total Protein 7.3 gm/dl Albumin 3.4 gm/dl Influenza Type A (RT-PCR) Neg for Influ A Influenza Type B (RT-PCR) Neg for Influ B Bedside Lactic Acid Venous 2.48 mmol/L Bedside Hemoglobin 15.3 g/dl Bedside Hematocrit 45 % Bedside Sodium 138 mEq/L Bedside Potassium 4.1 mEq/L Bedside Chloride 98 mEq/L Bedside Total CO2 23 mEq/l Bedside Blood Urea Nitrogen 16 mg/dl Bedside Creatinine 1.7 mg/dl Bedside Glucose (other) 98 mg/dl Bedside Ionized Calcium (Carolann) 1.03 mmol/l Test 11/24/17 05:18 11/24/17 06:07 Arterial Blood pH 7.37 Arterial Blood Partial Pressure CO2 45 mmHg Arterial Blood Partial Pressure O2 58 mm/Hg Arterial Blood HCO3 26 mmol/L Arterial Blood Oxygen Saturation 87.0 % Arterial Blood Base Excess 0.1 mEq/L Arterial Blood Gas Delivery 6L Mau Test POS Diagnostic Results Chest x-ray demonstrates slight RIGHT greater than left pulmonary vascular congestion consistent with previous imaging studies. Assessment & Plan (1) CHF exacerbation (2) Symptomatic bradycardia (3) COPD (chronic obstructive pulmonary disease) (4) CHF (congestive heart failure) (5) Atrial fibrillation with RVR (6) Febrile illness (7) SIRS (systemic inflammatory response syndrome) Reason Critically Ill: 62-year-old male with acute onset of RIGHT-sided rib pain with associated fevers and rigors. Upon presentation to the emergency department, the patient had an episode of bradycardia into the 20s which responded to IV atropine 1 currently requiring dopamine drip. Neuro - * CAM ICU: NEGATIVE * Rib Pain: * PRN Fentanyl * Evaluate with CT studies for possible sources. * Daily EtOH use: * No h/o withdraw s/s * CIWA protocol. Cardiac - * Symptomatic Bradycardia: * Episode of bradycardia in the 20s resolving with 0.5 mg atropine and dopamine drip. * Known history of A. fib with RVR. Will hold amiodarone and metoprolol at this point. Evaluate with echocardiogram for possible worsening dilatory heart dysfunction in the setting of known CHF. * We'll continue the dopamine for now. We will likely be able to titrate off today as patient's symptoms improve. * Appreciate cardiology consultation for further guidance. * Do question if the patient was experiencing vagal stimulation in the setting of RIGHT-sided rib pain resulting in bradycardia. In review the EKG, he did appear to have prolonged bradycardia with symptoms which is certainly concerning , especially in the setting of significant diastolic heart failure. * Will add Lyme titer for possible heart block. * Will monitor the patient on telemetry. * We will trend troponins. * A. Fib: * Will hold Eliquis for possible need for pacer placement. * Will start on Heparin gtt w/o Bolus. * Hold antiarrhythmic medications in the acute setting secondary to bradycardia arrhythmia. * CHF: * Continue home medications as able. Respiratory - * COPD Requiring Home O2: * Continue home oxygen as needed. * Continue nebulizers. * Pulmonary vascular congestion noted on chest x-ray. * We'll cover with antibiotics including vancomycin and Zosyn in the acute setting of febrile illness with significant pulmonary disease. GI - * Nothing by mouth at this point pending evaluation for possible need a pacemaker. * Prophylaxis: Protonix RENAL/LYTES - * No significant electrolyte derangement. * Will continue to monitor BUN/creatinine. - * Recent evaluation of prostate secondary to voiding complaints. * Question possible component of UTI versus prostatitis. * Will add urinalysis. * Will CT chest/abdomen for evaluation of RIGHT-sided flank pain. Possible kidney stone like presentation resulting in significant pain and bradycardic episode. Searching for possible underlying sources of patient's discomfort. * Would consider Devries catheter for comfort if necessary. ENDO - * No history of diabetes or thyroid disease. HEME - * Stable H&H - will monitor. ID - * Febrile illness/SIRS: * Vancomycin/Zosyn in the acute phase of febrile illness with pulmonary disease. * Will add Levaquin for atypical coverage as well. This is likely more beneficial for the patient overall. * Elevated Lactic Acid - will trend. * Will trend ProCal * Blood cultures pending. LINES/IV ACCESS - * PIVs intact. DVT PROPHYLAXIS - * Heparin gtt. * SCDs. I have personally spent 40 minutes of critical care time in the direct management of this patient. This is a life/limb threatening event. This includes time spent evaluating patient, direct bedside care, chart review, placing orders, interpretation of diagnostic studies, discussion with consultants, patient, and family members, as well as other required patient management activities. This time is exclusive of all separately billable procedures, and teaching time and separate from and in addition to any other critical care service time. Thank you for this consultation allow us to be part of this patient's care. Please refer to my attending physician's documentation for any further recommendations. Attending addendum, The patient was seen, examined independently, agree with assessment and plan of my colleague Aurelio Faith. #1 bradycardia, in the face of sepsis. Patient also was on beta blockers and amiodarone both were held. #2 history of COPD by CAT scan however the patient quit smoking years ago. He continued to be on Advair and Combivent. #3 right lower lobe pneumonia. Plan: #1 agree with your management. #2 continue with bronchodilators. #3 antibiotics for total of 7 days[address] #[address] Calderon input. #5 DVT and GI prophylaxis. #6 IV fluid. #7 disposition plan to telemetry floor. #8 discussed with the staff on rounds and details, CCT including the above was 60 minutes.
[2017-11-24] MEDS ORDERED: LORAZEPAM 2 MG/ML 1 ML VIAL IV PRN (07:00)
[2017-11-24 07:09] LABS: PHOSPHORUS 2.6 mg/dl (2.5-4.9)
[2017-11-24 07:12] VITALS: BP 131/43; PULSE 66; TEMP 38.9; O2SAT 89; Ht 190.5 cm; Wt 104.4 kg
--- NOTE | 2017-11-24 07:34 | DIAGNOSTIC IMAGING REPORT ---
CT OF THE CHEST WITHOUT IV CONTRAST CLINICAL HISTORY: Right lower rib pain. COMPARISON STUDY: Chest CT October 07, 2016 and radiograph November 05, 2016. TECHNIQUE: Axial images of the chest were obtained without IV contrast. Images were reviewed in the axial, sagittal, and coronal planes. IV contrast was not administered for this examination. A dose lowering technique was utilized adhering to the principles of ALARA. FINDINGS: No enlarged axillary, mediastinal or hilar lymph nodes are present. The heart is mildly enlarged. There is no pericardial effusion. No pneumothorax or pleural effusion is noted. There is moderate right middle lobe consolidation as well as right lower lobe consolidation. Moderate emphysema is noted. Note is made of a 4 mm left upper lobe nodule on image 129 of [id number] and a 4 mm right upper lobe nodule shown image 39. These were not evident on prior exam of October 07, 2016. Bony thorax is unremarkable. Abdomen and pelvis will be reported separately. IMPRESSION: 1. Moderate right middle lobe and right lower lobe opacity highly suggestive of pneumonia. 2. Moderate emphysema. 3. Several small pulmonary nodules which are new since CT of October 07, 2016. These are indeterminate. A follow-up chest CT in 6 months is recommended. Electronically signed by: Chay Jimenez M.D. 11/24/2017 7:32 AM Dictated Date/Time: 11/24/2017 7:23 AM
--- NOTE | 2017-11-24 07:41 | DIAGNOSTIC IMAGING REPORT ---
ABDOMEN AND PELVIS CT WITHOUT CONTRAST CT DOSE: 1743.12 mGy.cm HISTORY: RIGHT flank pain TECHNIQUE: Multiaxial CT images of the abdomen and pelvis were performed without the use of intravenous and oral contrast according to the standard department stone protocol. A dose lowering technique was utilized adhering to the principles of ALARA. COMPARISON STUDY: Abdomen and pelvis CT 08/12/2011. FINDINGS: Emphysema. Linear densities at the left lung base favor subsegmental atelectasis. Groundglass and consolidative opacities within the base of the right middle lobe. There is also small air consolidation within the base of the right lower lobe. This likely represents a pneumonia. No pneumoperitoneum. No pneumatosis. No fractures within the visualized osseous structures. Slightly hyperdense liver, unchanged. The liver remains enlarged. Slightly nodular contour to the liver. The spleen measures 16 cm in length. This is increased in size. Multiple small gallstones. There is a small amount of pericholecystic fluid. The unenhanced pancreas and adrenal glands are unremarkable. Calcification within the right kidney appears to be vascular. An 8 cm hypodense lesion within the upper pole the right kidney. This is not significantly changed in likely represents a cyst. The bladder is unremarkable. No retroperitoneal lymphadenopathy. Suboptimal evaluation for bowel pathology due to the lack of intravenous and oral contrast. However, no definite bowel wall thickening or obstruction. Colonic diverticulosis. Normal appendix. Mild mesenteric edema. Trace edema trace edema adjacent to the pancreatic head. IMPRESSION: 1. Right middle and lower lobe airspace opacities. This likely represents a pneumonia. 2. Trace edema adjacent to the pancreatic head. This is likely due to the patient's diffuse edematous state. However, recommend correlation with pancreatic enzymes to exclude the less likely possibility of a mild pancreatitis. 3. Hepatosplenomegaly which has progressed. 4. Mild edema surrounding the gallbladder. There are also multiple small gallstones. This is nonspecific and could be due to the patient's diffuse edematous state or possibly an acute cholecystitis. Clinical correlation is recommended. Ultrasound follow-up may also help for further evaluation. 5. No definite bowel wall thickening or obstruction. 6. Normal appendix. 7. Colonic diverticulosis. 8. Suspect early cirrhosis. The liver remains slightly hyperdense. Electronically signed by: Skyler Lamar M.D. 11/24/2017 7:40 AM Dictated Date/Time: 11/24/2017 7:29 AM
[2017-11-24] MEDS: FUROSEMIDE 40 MG TAB PO SCH ×2 (07:56→17:24)
[2017-11-24 08:00] VITALS: BP 119/49; PULSE 62; O2SAT 93
[2017-11-24] MEDS ORDERED: LEVOFLOXACIN / D5W 750 MG in PREMIXED IN D5W 150 ML IV SCH (08:00)
[2017-11-24] MEDS ORDERED: ALBUT/IPRATROP 3MG/0.5MG NEB 3 ML VIAL INH SCH (08:00)
[2017-11-24 08:51] LABS: INFLUENZA A PCR Neg for Influ A (NEG); INFLUENZA B PCR Neg for Influ B (NEG)
[2017-11-24] MEDS ORDERED: VANCOMYCIN INJ 1,000 MG in SODIUM CHLORIDE 0.9% 250ML 250 ML IV SCH (09:00)
--- NOTE | 2017-11-24 09:58 | Cardiology Consultation ---
Cardiology Consultation Date of Consultation: Nov 24, 2017. Requesting Physician: Dr. Lubin Reason for Consultation: Bradycardia Pt evaluation today including: conversation w/ patient, conversation w/ family , physical exam, lab review, review of inpatient medication list History of Present Illness This is a 61-year-old gentleman with a history of mild carotid disease, COPD with cor pulmonale, long-standing tobacco and alcohol abuse who presented with near syncope and was observed to be in atrial fibrillation with a rapid ventricular response on December 10, 2010. He also had some chest heaviness when he presented with that arrhythmia. He was feeling poorly throughout most of that day, it is likely that the arrhythmia started that morning and it subsequently terminated spontaneously the same day in the hospital. Evaluation in the hospital included echocardiography and stress testing. The echocardiogram suggested right ventricular dysfunction, the stress test suggested ischemia in the LAD distribution. Based on lack of any anginal symptoms other than during the arrhythmia invasive evaluation has not been performed however he is being treated medically for atherosclerosis. He was discharged from the hospital on low dose beta blockade given his COPD. He had a recurrence of his arrhythmia in December of 2010 (based on symptoms) with some dizziness therefore we added digoxin to his regimen. On a dose of 0.25 mg daily he had a level of 2.0 therefore this was reduced at 0.125 mg daily. He presented to [facility] 01/13/2015 in atrial flutter with a rapid heart rate. Additionally he had a respiratory illness which may have contributed to the rapid heart rate. He also had a rapid wide complex tachycardia at about 250 bpm which was likely 1-1 conduction of his atrial flutter with aberrancy. He tolerated it reasonably well. He was treated with amiodarone for control of the arrhythmia and spontaneously converted to sinus rhythm. His amiodarone has been continued. He was started on Coumadin, however his INR was elevated at 4.6 on 01/28/2015 and this was discontinued and switched to Eliquis which was started on 02/07/2015. He Has been tolerating Eliquis well. Since starting amiodarone his rhythm has not been much of an issue, He presented to the emergency room on November 24, 2017 with a week of what sounds like respiratory symptoms including an achy feeling and a dry cough, he then developed right sided rib discomfort and shakes as well as feeling cold. In the emergency room initially his heart rate was in the 60s his blood pressure was 160 systolic, however after arrival he became transiently bradycardic into the 20s for which she received atropine and a dopamine drip. On review this appears to be sinus bradycardia, not heart block and he recalls feeling lightheaded at that time but not other times. The dopamine has just been discontinued. He was febrile and had a leukocytosis and an elevated lactic acid, this is all consistent with infection. He was treated with broad- spectrum antibiotics. I reviewed medications with his , he is on amiodarone 200 mg twice a day, apixaban 5 mg twice a day and metoprolol tartrate, although that dose evidently was recently decreased as an outpatient, for unknown reasons (perhaps bradycardia?). He has not been having symptoms of lightheadedness or dizziness , he has not had symptoms of palpitations to suggest recurrent atrial arrhythmias. He notes that his heart rate is often low but has not had hemodynamic symptoms that I can elicit. Past Medical/Surgical History (1) COPD (chronic obstructive pulmonary disease) (2) Atrial fibrillation with RVR Family History Cancer Heart disease Hypertension Social History Smoking Status: Former Smoker History of Alcohol Use: Yes (3-4 BEERS/DAY) Review of Systems Constitutional: No fever, No weight loss, No weakness Respiratory: + see HPI, + cough, No wheezing, No shortness of breath, No dyspnea on exertion Cardiac: + see HPI, No chest pain, No orthopnea, No PND, No edema, No palpitations Abdomen: No pain, No nausea, No vomiting, No diarrhea, No GI bleeding Male : No urinary frequency, No nocturia more than once/night, No slowing stream, No sexual dysfunction Neurologic: No paralysis, No weakness, No numbness/tingling, No balance problems Heme: No abnormal bleeding/bruising, No clotting problems Endo: No fatigue Skin: No problem reported All Other Systems: Reviewed and Negative Allergies Coded Allergies: No Known Allergies (Unverified , 12/15/16) Medications Current Inpatient Medications Medications (Trade) Dose Ordered Sig/Franklyn Route Start Time Stop Time Status Last Admin Dose Admin Albuterol/ Ipratropium (Duoneb) 3 ml Q4RWA INH 11/24/17 08:00 12/24/17 07:59 Salmeterol Xinafoate/ Fluticasone (Advair Diskus 500/50 Inh) 1 puff BID INH 11/24/17 09:00 12/24/17 08:59 Furosemide (Lasix Tab) 40 mg BID17 PO 11/24/17 09:00 12/24/17 08:59 11/24/17 07:56 40 MG Nitroglycerin (Nitrostat Tab) 0.4 mg TID PRN UT 11/24/17 06:30 12/24/17 06:29 Simvastatin (Zocor Tab) 40 mg QPM PO 11/24/17 21:00 12/24/17 20:59 Doxycycline Hyclate (Vibramycin Cap) 100 mg BID PO 11/24/17 09:00 12/01/17 08:59 UNV Sodium Chloride 1,000 ml @ 100 mls/hr Q10H IV 11/24/17 09:15 12/24/17 09:14 UNV Apixaban (Eliquis Tab) 5 mg BID PO 11/24/17 21:00 12/24/17 20:59 UNV Physical Exam Vital Signs Past 12 Hours Date Time Temp Pulse Resp B/P (MAP) Pulse Ox O2 Delivery O2 Flow Rate FiO2 11/24/17 08:00 Oxymask 9.0 11/24/17 08:00 62 21 119/49 (72) 93 Oxymask 9.0 11/24/17 07:12 38.9 66 24 131/43 89 Nasal Cannula 6.0 11/24/17 06:35 64 20 123/53 93 Nasal Cannula 6.0 11/24/17 06:05 39.5 63 20 129/58 91 Nasal Cannula 6.0 11/24/17 05:45 62 20 135/54 92 Nasal Cannula 6.0 11/24/17 05:30 61 20 136/55 91 Nasal Cannula 6.0 11/24/17 05:15 63 20 143/54 89 Nasal Cannula 6.0 11/24/17 05:04 64 20 133/52 91 Nasal Cannula 5.0 11/24/17 04:51 63 11/24/17 04:48 56 11/24/17 04:47 63 24 106/52 92 Nasal Cannula 5.0 11/24/17 04:42 31 11/24/17 04:38 0 11/24/17 04:37 57 11/24/17 04:31 38.1 65 21 153/59 90 Nasal Cannula 4.0 Constitutional: General Apperance: heathly-appearing Level of Distress: NAD Psychiatric: Mental Status: active & alert Head: normocephalic Eyes: EOM: EOMI ENMT: normal ENT inspection, hearing grossly normal Neck: supple, no masses Lungs: Respiratory effort: no dyspnea, good air movement Auscultation: no wheezing, rales/crackles on the right Cardiovascular: Heart Auscultation: RRR, no murmurs, no rubs, no gallops, bradycardia Peripheral Pulses: Bruits: none appreciated Abdomen: Bowel Sounds: normal Inspection & Palpation: soft, no tenderness, guarding & rebound, no masses Musculoskeletal: normal strength (5/5 throughout) Extremities: no edema Neurologic: Cranial Nerves: grossly intact Sensation: grossly intact Data Laboratory Results: Last 24 Hours Test 11/24/17 04:30 11/24/17 04:48 11/24/17 04:56 11/24/17 05:02 White Blood Count 14.17 K/uL Red Blood Count 4.27 M/uL Hemoglobin 15.3 g/dL Hematocrit 44.4 % Mean Corpuscular Volume 104.0 fL Mean Corpuscular Hemoglobin 35.8 pg Mean Corpuscular Hemoglobin Concent 34.5 g/dl Platelet Count 144 K/uL Mean Platelet Volume 10.6 fL Neutrophils (%) (Auto) 85.1 % Lymphocytes (%) (Auto) 4.5 % Monocytes (%) (Auto) 9.6 % Eosinophils (%) (Auto) 0.4 % Basophils (%) (Auto) 0.2 % Neutrophils # (Auto) 12.05 K/uL Lymphocytes # (Auto) 0.64 K/uL Monocytes # (Auto) 1.36 K/uL Eosinophils # (Auto) 0.06 K/uL Basophils # (Auto) 0.03 K/uL RDW Standard Deviation 52.4 fL RDW Coefficient of Variation 13.7 % Immature Granulocyte % (Auto) 0.2 % Immature Granulocyte # (Auto) 0.03 K/uL Prothrombin Time 10.8 SECONDS Prothromb Time International Ratio 1.0 Sodium Level 136 mmol/L Potassium Level 3.8 mmol/L Chloride Level 100 mmol/L Carbon Dioxide Level 28 mmol/L Anion Gap 8.0 mmol/L Blood Urea Nitrogen 15 mg/dl Creatinine 1.57 mg/dl Est Creatinine Clear Calc Drug Dose 63.5 ml/min Estimated GFR () 53.6 Estimated GFR (Non- 46.2 BUN/Creatinine Ratio 9.8 Random Glucose 93 mg/dl Calcium Level 8.1 mg/dl Magnesium Level 2.1 mg/dl 2.0 mg/dl Total Bilirubin 0.7 mg/dl Direct Bilirubin 0.3 mg/dl Aspartate Amino Transf (AST/SGOT) 80 U/L Alanine Aminotransferase (ALT/SGPT) 66 U/L Alkaline Phosphatase 197 U/L Total Creatine Kinase 55 U/L Creatine Kinase MB 1.3 ng/ml Creatine Kinase MB Ratio 2.4 Troponin I < 0.015 ng/ml Total Protein 7.3 gm/dl Albumin 3.4 gm/dl Procalcitonin 0.21 ng/ml Lyme Disease IgG Antibody NEG Lyme Disease IgM Antibody NEG Influenza Type A (RT-PCR) Neg for Influ A Influenza Type B (RT-PCR) Neg for Influ B Phosphorus Level 2.6 mg/dl Bedside Lactic Acid Venous 2.48 mmol/L Test 11/24/17 05:06 11/24/17 05:18 11/24/17 07:30 11/24/17 07:45 Bedside Hemoglobin 15.3 g/dl Bedside Hematocrit 45 % Bedside Sodium 138 mEq/L Bedside Potassium 4.1 mEq/L Bedside Chloride 98 mEq/L Bedside Total CO2 23 mEq/l Anion Gap 22.0 mmol/L Bedside Blood Urea Nitrogen 16 mg/dl Bedside Creatinine 1.7 mg/dl Bedside Glucose (other) 98 mg/dl Bedside Ionized Calcium (Carolann) 1.03 mmol/l Arterial Blood pH 7.37 Arterial Blood Partial Pressure CO2 45 mmHg Arterial Blood Partial Pressure O2 58 mm/Hg Arterial Blood HCO3 26 mmol/L Arterial Blood Oxygen Saturation 87.0 % Arterial Blood Base Excess 0.1 mEq/L Arterial Blood Gas Delivery 6L Mau Test POS Influenza Type A (RT-PCR) Neg for Influ A Influenza Type B (RT-PCR) Neg for Influ B Urine Color YELLOW Urine Appearance CLEAR Urine pH 6.0 Urine Specific [place] 1.017 Urine Protein NEG Urine Glucose (UA) NEG Urine Ketones NEG Urine Occult Blood TRACE Urine Nitrite NEG Urine Bilirubin NEG Urine Urobilinogen NEG Urine Leukocyte Esterase TRACE Urine WBC (Auto) 1-5 /hpf Urine RBC (Auto) 0-4 /hpf Urine Hyaline Casts (Auto) 0 /lpf Urine Epithelial Cells (Auto) 5-10 /lpf Urine Bacteria (Auto) NEG Imaging: Chest x-ray shows bilateral lower infiltrates EKG: On arrival sinus bradycardia at 57 bpm with first-degree AV block and a WV interval of about 220 ms. Telemetry reviewed: For the most part sinus bradycardia, initially there was a period of transient sinus bradycardia with a slow heart rate and premature atrial beats, this resolved quickly and has not recurred. Assessment & Plan 1. Bradycardia: I suspect this was vagal in etiology, he does not have a history of symptoms suggestive of bradycardia but he did feel this episode in the emergency room so I suspect if he had that at home he would feel it. I suspect it is related to his acute illness. Agree with discontinuation of the dopamine. I would probably discontinue his beta-juan ramon and continue the amiodarone, although holding his amiodarone for day or 2 until we sort this out should not be an issue. I suspect he will not need a pacemaker but we need to continue to monitor his rhythm. 2. Atrial fibrillation: Symptomatically he has done very well with his atrial arrhythmia on amiodarone, and we have no documentation that he has had much recurrence. He is tolerating amiodarone well (assuming that it was not a cause of his significant bradycardia). I would continue that, although holding it for a few days until his rhythm is sorted out should not be an issue. 3. Coronary disease: We have never proven that he has coronary disease, we have felt that it is likely but he has not had a catheterization to my knowledge. Despite his presentation his enzymes have been negative. I would not pursue further evaluation or treatment other than what we are doing already. Thank you for allowing me to participate in his care.
[2017-11-24 10:00] VITALS: BP 114/44; PULSE 57; O2SAT 95
[2017-11-24] MEDS: SODIUM CHLORIDE 0.9% 1000ML 1,000 ML IV SCH ×2 (10:17→19:05)
[2017-11-24 12:00] VITALS: BP 115/40; PULSE 53; TEMP 38.3; O2SAT 95
[2017-11-24] MEDS: FLUTICASONE/SALMETEROL (ADVAIR) 500/50 INH 14 PUFF INH SCH ×3 (12:35→20:52)
--- NOTE | 2017-11-24 12:36 | ECHOCARDIOGRAM REPORT ---
*NOTICE TO RECEIVING REPUBLICAN AGENCY This information is strictly Confidential and protected under [place] law. [place] law prohibits you from making any further disclosure of this information unless further disclosure is expressly permitted by the written consent of the person to whom it pertains or is authorized by law. A general authorization for the release of medical or other information is not sufficient for this purpose. Hospital accepts no responsibility if the information is made available to any other person, INCLUDING THE PATIENT. Interpretation Summary * Name: JARED MOSQUERA Study Date: 11/24/2017 08:12 AM BP: 119/49 mmHg * [facility] HR: 61 * : 1955 (M/d/yyyy) Gender: Male Height: 75 in * Age: 62 yrs Ethnicity: [place] Weight: 232 lb * Ordering Physician: Aurelio Faith * Referring Physician: Self, Referred * Performed By: Sarahi Funes [facility] * * Reason For Study: SYMPTOMATIC BRADYCARDIA * BSA: 2.3 m2 * -- Conclusions -- * 1. Mildly dilated left ventricle with hyperdynamic systolic function. EF > 70%. No regional wall motion abnormalities. Mild concentric left ventricular hypertrophy. No significant diastolic dysfunction. * 2. Moderately dilated right ventricle with normal systolic function. * 3. Moderate biatrial dilation. * 4. There is mild mitral regurgitation. * 5. Compared to prior study on 11/05/2016, right ventricle is less dilated with improved systolic function. Left ventricular systolic function is now hyperdynamic. Suggestion of RV volume overload is no longer present. Procedure Details * A complete two-dimensional transthoracic echocardiogram was performed (2D, M-mode, Doppler and color flow Doppler). Left Ventricle * Mildly dilated left ventricle with hyperdynamic systolic function. EF > 70%. No regional wall motion abnormalities. Mild concentric left ventricular hypertrophy. No significant diastolic dysfunction. Right Ventricle * Moderately dilated right ventricle with normal systolic function. * The right ventricular systolic function is normal as assessed by tricuspid annular plane systolic excursion (TAPSE) (normal >1.5 cm). Atria * The left atrium is moderately dilated. * The right atrium is moderately dilated. * There is no evidence of atrial septal defect, but resolution does not allow assessment for a patent foramen ovale. Mitral Valve * The mitral valve is grossly normal. * There is no mitral valve stenosis. * There is mild mitral regurgitation. Tricuspid Valve * The tricuspid valve is not well visualized, but is grossly normal. * There is no tricuspid stenosis. * There is trace tricuspid regurgitation. Aortic Valve * The aortic valve is trileaflet. * No hemodynamically significant valvular aortic stenosis. * No aortic regurgitation is present. Pulmonic Valve * The pulmonary valve is inadequately visualized, but the Doppler data is adequate for interpretation. * There is no pulmonic valvular stenosis. * There is no significant pulmonary regurgitation. Great Vessels * The aortic root is normal size. Pericardium/Pleural * There is no pericardial effusion. Great Vessels * Normal inferior vena cava size and collapsability with sniff indicates a normal right atrial pressure of 3 mmHg MMode 2D Measurements and Calculations IVSd 1.2 cm IVSs 1.6 cm LVIDd 5.9 cm LVIDs 3.3 cm LVPWd 1.2 cm LVPWs 1.5 cm IVS/LVPW 1.0 FS 43.6 % EDV(Teich) 173.1 ml ESV(Teich) 45.0 ml EF(Teich) 74.0 % EDV(cubed) 205.2 ml ESV(cubed) 36.8 ml EF(cubed) 82.1 % % IVS thick 35.6 % % LVPW thick 27.2 % LV mass(C)d 296.8 grams LV mass(C)dI 127.0 grams/m\S\2 LV mass(C)s 189.6 grams LV mass(C)sI 81.1 grams/m\S\2 SV(Teich) 128.1 ml SI(Teich) 54.8 ml/m\S\2 SV(cubed) 168.4 ml SI(cubed) 72.1 ml/m\S\2 Ao root diam 3.8 cm Ao root area 11.3 cm\S\2 LA dimension 4.1 cm LA/Ao 1.1 LVOT diam 2.1 cm LVOT area 3.6 cm\S\2 LVAd ap4 40.2 cm\S\2 LVLd ap4 9.0 cm EDV(MOD-sp4) 150.7 ml EDV(sp4-el) 153.0 ml LVAs ap4 15.5 cm\S\2 LVLs ap4 7.2 cm ESV(MOD-sp4) 27.9 ml ESV(sp4-el) 28.1 ml EF(MOD-sp4) 81.5 % EF(sp4-el) 81.6 % SV(MOD-sp4) 122.8 ml SI(MOD-sp4) 52.5 ml/m\S\2 SV(sp4-el) 124.8 ml SI(sp4-el) 53.4 ml/m\S\2 Doppler Measurements and Calculations MV E max roxanne 127.3 cm/sec MV A max roxanne 85.2 cm/sec MV E/A 1.5 MV P1/2t max roxanne 130.3 cm/sec MV P1/2t 99.6 msec MVA(P1/2t) 2.2 cm\S\2 MV dec slope 382.9 cm/sec\S\2 MV dec time 0.28 sec Ao V2 max 185.7 cm/sec Ao max PG 13.8 mmHg Ao max PG (full) 4.2 mmHg Ao V2 mean 121.1 cm/sec Ao mean PG 6.8 mmHg Ao V2 VTI 40.4 cm UMU(V,A) 3.0 cm\S\2 UMU(V,D) 3.0 cm\S\2 LV V1 max PG 9.5 mmHg LV V1 max 154.5 cm/sec SV(Ao) 455.9 ml SI(Ao) 195.1 ml/m\S\2 PA V2 max 133.7 cm/sec PA max PG 7.2 mmHg RAP systole 3.0 mmHg
[2017-11-24] MEDS ORDERED: ATROPINE SULFATE 0.1 MG/ML 10 ML SYR IV ONE (12:44)
[2017-11-24] MEDS: IPRATROPIUM BROMIDE/ALBUTEROL respimat INH INH SCH ×3 (13:24→20:52)
[2017-11-24] MEDS: CEFTRIAXONE SOD INJ 2,000 MG in DEXTROSE 5% 50ML 50 ML IV SCH (13:24)
[2017-11-24] MEDS ORDERED: PIPERACILL/TAZOBAC IV 3.375 GM in DEXTROSE 5% 100ML 100 ML IV SCH (14:00)
[2017-11-24 14:43] LABS: CKMB 1.1 ng/ml (0.5-3.6)
[2017-11-24 16:00] VITALS: BP 134/48; PULSE 54; TEMP 37; O2SAT 93
[2017-11-24 20:00] VITALS: BP 127/50; PULSE 55; TEMP 36.8; O2SAT 96
[2017-11-24] MEDS: APIXABAN 2.5 MG TAB PO SCH (20:52)
[2017-11-24] MEDS: ACETAMINOPHEN 325 MG TAB PO PRN (20:54)
[2017-11-24] MEDS ORDERED: AcetaZOLAMIDE 250 MG TAB PO SCH (21:00)
[2017-11-24 22:33] LABS: CKMB 0.8 ng/ml (0.5-3.6)
[2017-11-24] MEDS: SIMVASTATIN 40 MG TAB PO SCH (22:52)
[2017-11-25] VITALS (16 sets, daily range): BP systolic 128–161; BP diastolic 32–70; PULSE 49–56; TEMP 36.6–37.4; O2SAT 93–98
[2017-11-25] MEDS: SODIUM CHLORIDE 0.9% 1000ML 1,000 ML IV SCH ×2 (05:08→16:10)
[2017-11-25 05:35] LABS: INR 1.2 (0.9-1.1); PTT PATIENT 35.4 SECONDS (21.0-31.0)
[2017-11-25 05:48] LABS: HEMATOCRIT 37.5 % (42-52); HEMOGLOBIN 12.4 g/dL (14.0-18.0); MEAN CELL VOLUME 104.7 fL (80-100); MEAN CORPUSCULAR HEMOGLOBIN 34.6 pg (25-34); MEAN CORPUSCULAR HGB CONC 33.1 g/dl (32-36); MEAN PLATELET VOLUME 10.1 fL (7.4-10.4); PLATELET COUNT 82 K/uL (130-400); RED CELL DISTRIBUTION WIDTH CV 14.2 % (11.5-14.5); RED CELL DISTRIBUTION WIDTH SD 54.5 fL (36.4-46.3); WHITE BLOOD COUNT 5.44 K/uL (4.8-10.8)
[2017-11-25 05:50] LABS: BASO % 0.7 %; BASO ABS # 0.04 K/uL (0-0.2); EOS % 1.8 %; IG# 0.01 K/uL (0.00-0.02); LYMPH % 8.8 %; LYMPH ABS # 0.48 K/uL (1.2-3.4); MONO % 10.1 %; MONO ABS # 0.55 K/uL (0.11-0.59); NEUT % 78.4 %; NEUT ABS # 4.26 K/uL (1.4-6.5)
--- NOTE | 2017-11-25 06:57 | DIAGNOSTIC IMAGING REPORT ---
CHEST ONE VIEW PORTABLE CLINICAL HISTORY: pna/chf dyspnea COMPARISON STUDY: 11/24/2017 FINDINGS: Interval development of several basilar interstitial curly B lines. Mild cardiomegaly. Slight increase in pulmonary vasculature. The appearance suggests possibility of congestive failure versus developing pulmonary edema. IMPRESSION: Slightly progressive exam suggesting congestive failure versus developing pulmonary edema. The above report was generated using voice recognition software. It may contain grammatical, syntax or spelling errors. Electronically signed by: Raymundo Fitzgerald M.D. 11/25/2017 6:55 AM Dictated Date/Time: 11/25/2017 6:55 AM
[2017-11-25] MEDS: IPRATROPIUM BROMIDE/ALBUTEROL respimat INH INH SCH ×4 (09:06→20:07)
[2017-11-25] MEDS: FLUTICASONE/SALMETEROL (ADVAIR) 500/50 INH 14 PUFF INH SCH ×2 (09:06→20:06)
[2017-11-25] MEDS: APIXABAN 2.5 MG TAB PO SCH ×2 (09:07→20:08)
[2017-11-25] MEDS: DOXYCYCLINE HYCLATE 100 MG CAP PO SCH ×2 (09:07→20:08)
[2017-11-25] MEDS: FUROSEMIDE 40 MG TAB PO SCH ×2 (09:07→16:11)
--- NOTE | 2017-11-25 09:30 | Clinical Documentation Query ---
CLINICAL DOCUMENTATION QUERY 62 year old male who presents to the Emergency Room for evaluation of shortness of breath and right rib pain. Query #1/2 In your clinical opinion is this patient being managed for: ( ) Suspected MRSA pneumonia treated with IV Vancomycin ( ) Suspected Gram negative pneumonia treated with IV Zosyn & IV Ceftriaxone ( x ) Not Agree Multilobar pneumonia, treating with broad spectrum antibiotics initially ( ) Other explanation of clinical findings (Please Explain) ( ) Unable to determine (Please Define) ( ) Need to Discuss The medical record reflects the following clinical findings, treatment, and risk factors. Clinical Indicators: SOB, right rib pain, Hypoxia on 4L NC of 90%, fever of 38.1, Leukocytosis 14.17. Treatment: O2, IV Zosyn, IV Ceftriaxone, IV Vancomycin, Duonebs, ICU hemodynamic monitoring. Risk Factors: Age, COPD, Home O2 use, Query #2/2 In your clinical opinion is this patient being managed for: ( x ) Acute and chronic respiratory failure with hypoxia ( ) Not Agree ( ) Other explanation of clinical findings (Please Explain) ( ) Unable to determine (Please Define) ( ) Need to Discuss The medical record reflects the following clinical findings, treatment, and risk factors. Clinical Indicators: Hypoxia of 89% on 5L NC, ABG with PaO2 of 58 on 6L. Treatment: O2 via mask, IV antibiotics, Nebs, Risk Factors: Age, COPD, underlying pneumonia Please clarify and document your clinical opinion in the progress notes and discharge summary. Terms such as "probable", "suspected", "likely", "questionable", "possible", or "still to be ruled out" are acceptable. IF IN AGREEMENT, YOU MUST DOCUMENT ABOVE DIAGNOSTIC STATEMENT IN DAILY PROGRESS NOTES AND DISCHARGE SUMMARY. This document is not part of the patient's record. Thank You, Tee Lawson, RN [phone]
--- NOTE | 2017-11-25 09:41 | Cardiology Follow-Up ---
Subjective Date of Service: Nov 25, 2017. Pt evaluation today including: conversation w/ patient, physical exam, lab review, review of studies, review of inpatient medication list History of Present Illness This is a 61-year-old gentleman with a history of mild carotid disease, COPD with cor pulmonale, long-standing tobacco and alcohol abuse who presented with near syncope and was observed to be in atrial fibrillation with a rapid ventricular response on December 10, 2010. He also had some chest heaviness when he presented with that arrhythmia. He was feeling poorly throughout most of that day, it is likely that the arrhythmia started that morning and it subsequently terminated spontaneously the same day in the hospital. Evaluation in the hospital included echocardiography and stress testing. The echocardiogram suggested right ventricular dysfunction, the stress test suggested ischemia in the LAD distribution. Based on lack of any anginal symptoms other than during the arrhythmia invasive evaluation has not been performed however he is being treated medically for atherosclerosis. He was discharged from the hospital on low dose beta blockade given his COPD. He had a recurrence of his arrhythmia in December of 2010 (based on symptoms) with some dizziness therefore we added digoxin to his regimen. On a dose of 0.25 mg daily he had a level of 2.0 therefore this was reduced at 0.125 mg daily. He presented to [facility] 01/13/2015 in atrial flutter with a rapid heart rate. Additionally he had a respiratory illness which may have contributed to the rapid heart rate. He also had a rapid wide complex tachycardia at about 250 bpm which was likely 1-1 conduction of his atrial flutter with aberrancy. He tolerated it reasonably well. He was treated with amiodarone for control of the arrhythmia and spontaneously converted to sinus rhythm. His amiodarone has been continued. He was started on Coumadin, however his INR was elevated at 4.6 on 01/28/2015 and this was discontinued and switched to Eliquis which was started on 02/07/2015. He Has been tolerating Eliquis well. Since starting amiodarone his rhythm has not been much of an issue, He presented to the emergency room on November 24, 2017 with a week of what sounds like respiratory symptoms including an achy feeling and a dry cough, he then developed right sided rib discomfort and shakes as well as feeling cold. In the emergency room initially his heart rate was in the 60s his blood pressure was 160 systolic, however after arrival he became transiently bradycardic into the 20s for which she received atropine and a dopamine drip. On review this appears to be sinus bradycardia, not heart block and he recalls feeling lightheaded at that time but not other times. The dopamine has just been discontinued. He was febrile and had a leukocytosis and an elevated lactic acid, this is all consistent with infection. He was treated with broad- spectrum antibiotics. I reviewed medications with his , he is on amiodarone 200 mg twice a day, apixaban 5 mg twice a day and metoprolol tartrate, although that dose evidently was recently decreased as an outpatient, for unknown reasons (perhaps bradycardia?). He has not been having symptoms of lightheadedness or dizziness , he has not had symptoms of palpitations to suggest recurrent atrial arrhythmias. He notes that his heart rate is often low but has not had hemodynamic symptoms that I can elicit. Today he feels better, he is still having pulmonary symptoms. No cardiovascular symptoms, no lightheadedness or dizziness. Social History Smoking Status: Former Smoker History of Alcohol Use: Yes (3-4 BEERS/DAY) Review of Systems Respiratory: + see HPI, + cough, No wheezing, No shortness of breath, No dyspnea on exertion Cardiac: + see HPI, No chest pain, No orthopnea, No PND, No edema, No palpitations Medications Cardiovascular: Item Value Date Time Simvastatin 40 mg 11/24/17 2100 (Zocor Tab) QPM/PO 11/24/17 2252 Apixaban 5 mg 11/24/17 2100 (Eliquis Tab) BID/PO 11/25/17 0907 Furosemide 40 mg 11/24/17 0900 (Lasix Tab) BID17/PO 11/25/17 0907 Nitroglycerin 0.4 mg 11/24/17 0630 (Nitrostat Tab) TID PRN/UT Objective Vital Signs Past 12 Hours Date Time Temp Pulse Resp B/P (MAP) Pulse Ox O2 Delivery O2 Flow Rate FiO2 11/25/17 04:00 Oxymask 3.0 11/25/17 04:00 36.6 52 18 161/65 (97) 94 Oxymask 3.0 11/25/17 00:01 Oxymask 3.0 11/25/17 00:01 36.7 55 16 128/59 (82) 95 Oxymask 3.0 Last Recorded Weight-Kilograms: 104.600 Physical Exam Constitutional: General Apperance: heathly-appearing Level of Distress: NAD Lungs: Respiratory effort: no dyspnea, good air movement Auscultation: no wheezing, rales/crackles on the right Cardiovascular: Heart Auscultation: RRR, no murmurs, no rubs, no gallops, bradycardia Peripheral Pulses: Bruits: none appreciated Extremities: no edema Data Laboratory Results: Last 24 Hours Test 11/24/17 14:03 11/24/17 22:05 11/25/17 04:54 Total Creatine Kinase 35 U/L 30 U/L Creatine Kinase MB 1.1 ng/ml 0.8 ng/ml Creatine Kinase MB Ratio 3.1 2.7 Troponin I < 0.015 ng/ml < 0.015 ng/ml White Blood Count 5.44 K/uL Red Blood Count 3.58 M/uL Hemoglobin 12.4 g/dL Hematocrit 37.5 % Mean Corpuscular Volume 104.7 fL Mean Corpuscular Hemoglobin 34.6 pg Mean Corpuscular Hemoglobin Concent 33.1 g/dl Platelet Count 82 K/uL Mean Platelet Volume 10.1 fL Neutrophils (%) (Auto) 78.4 % Lymphocytes (%) (Auto) 8.8 % Monocytes (%) (Auto) 10.1 % Eosinophils (%) (Auto) 1.8 % Basophils (%) (Auto) 0.7 % Neutrophils # (Auto) 4.26 K/uL Lymphocytes # (Auto) 0.48 K/uL Monocytes # (Auto) 0.55 K/uL Eosinophils # (Auto) 0.10 K/uL Basophils # (Auto) 0.04 K/uL RDW Standard Deviation 54.5 fL RDW Coefficient of Variation 14.2 % Immature Granulocyte % (Auto) 0.2 % Immature Granulocyte # (Auto) 0.01 K/uL Platelet Estimate DECREASED Prothrombin Time 12.7 SECONDS Prothromb Time International Ratio 1.2 Activated Partial Thromboplast Time 35.4 SECONDS Partial Thromboplastin Ratio 1.4 Phosphorus Level 3.0 mg/dl Magnesium Level 2.0 mg/dl Imaging: Echo shows good LV function (hyperdynamic) Telemetry reviewed: Sinus bradycardia, running around 50 bpm, no significant slowing or tachycardia Assessment and Plan 1. Bradycardia: I suspect his presenting event was vagal in etiology, he does not have a history of symptoms suggestive of bradycardia but he did feel this episode in the emergency room so I suspect if he had that at home he would feel it. I suspect it is related to his acute illness. Agree with discontinuation of beta blockade, I do not know that he needs that. I would continue to hold his amiodarone for now. I suspect he will not need a pacemaker but we need to continue to monitor his rhythm. 2. Amiodarone therapy: He was on amiodarone at a fairly high dose, I do not know what his level currently is. He has some liver function abnormalities. I would hold off on amiodarone for the time being and I have drawn a level and I will check a TSH. 3. Atrial fibrillation: Symptomatically he has done very well with his atrial arrhythmia on amiodarone, and we have no documentation that he has had much recurrence. He is tolerating amiodarone well (assuming that it was not a cause of his significant bradycardia) but does have liver function abnormalities which may or may not be related. Holding it for a few days until his rhythm and liver functions are sorted out should not be an issue. If he has recurrent atrial fibrillation he is protected on Eliquis. 4. Coronary disease: We have never proven that he has coronary disease, we have felt that it is likely but he has not had a catheterization to my knowledge. Despite his presentation his enzymes have been negative. I would not pursue further evaluation or treatment other than what we are doing already. Thank you for allowing me to participate in his care.
[2017-11-25 10:41] LABS: ALBUMIN 2.6 gm/dl (3.4-5.0); TOTAL PROTEIN 5.8 gm/dl (6.4-8.2)
--- NOTE | 2017-11-25 13:14 | Progress Note ---
Subjective Date of Service: Nov 25, 2017. Subjective Pt evaluation today including: conversation w/ patient, physical exam, lab review, conversation w/ category consultant, review of inpatient medication list Pain: no pain PO Intake: adequate Voiding: no voiding problems doing well, breathing well, eating well, minimal cough no fever, normal WBC today HR in the 50's, no further bradycardia discussed with Dr Calderon, appreciate recommendations, holding Amiodarone for now Problem List Medical Problems: (1) Acute renal failure Status: Acute (2) Chest pressure Status: Acute (3) CHF (congestive heart failure) Status: Acute (4) CHF (congestive heart failure) Status: Chronic (5) CHF exacerbation Status: Chronic (6) COPD (chronic obstructive pulmonary disease) Status: Acute (7) COPD (chronic obstructive pulmonary disease) Status: Chronic (8) COPD exacerbation Status: Acute (9) Dehydration Status: Acute (10) Febrile illness Status: Acute (11) Hypokalemia Status: Acute (12) Sepsis Status: Acute (13) SIRS (systemic inflammatory response syndrome) Status: Acute (14) SOB (shortness of breath) Status: Acute (15) Symptomatic bradycardia Status: Acute Review of Systems Respiratory: + dyspnea on exertion All Other Systems: Reviewed and Negative Medications Current Inpatient Medications Medications (Trade) Dose Ordered Sig/[place] Route Start Time Stop Time Status Last Admin Dose Admin Salmeterol Xinafoate/ Fluticasone (Advair Diskus 500/50 Inh) 1 puff BID INH 11/24/17 09:00 12/24/17 08:59 11/25/17 09:06 1 PUFF Furosemide (Lasix Tab) 40 mg BID17 PO 11/24/17 09:00 12/24/17 08:59 11/25/17 09:07 40 MG Nitroglycerin (Nitrostat Tab) 0.4 mg TID PRN UT 11/24/17 06:30 12/24/17 06:29 Simvastatin (Zocor Tab) 40 mg QPM PO 11/24/17 21:00 12/24/17 20:59 11/24/17 22:52 40 MG Doxycycline Hyclate (Vibramycin Cap) 100 mg BID PO 11/25/17 09:00 12/02/17 08:59 11/25/17 09:07 100 MG Sodium Chloride 1,000 ml @ 100 mls/hr Q10H IV 11/24/17 10:15 12/24/17 10:14 11/25/17 05:08 100 MLS/HR Apixaban (Eliquis Tab) 5 mg BID PO 11/24/17 21:00 12/24/17 20:59 11/25/17 09:07 5 MG Ceftriaxone Sodium 2000 mg/ Dextrose 70 ml @ 100 mls/hr Q24H IV 11/24/17 14:00 12/01/17 13:59 11/24/17 13:24 100 MLS/HR Albuterol/ Ipratropium (Combivent Respimat Inh) 1 puffs QID INH 11/24/17 13:00 12/24/17 12:59 11/25/17 09:06 1 PUFFS Acetaminophen (Tylenol Tab) 650 mg Q4H PRN PO 11/24/17 19:30 12/24/17 19:29 11/24/17 20:54 650 MG Objective Vital Signs Date Time Temp Pulse Resp B/P (MAP) Pulse Ox O2 Delivery O2 Flow Rate FiO2 11/25/17 12:07 36.8 54 15 136/48 (77) 98 Nasal Cannula 2.0 11/25/17 12:00 56 17 97 11/25/17 12:00 95 Nasal Cannula 2.0 11/25/17 11:00 49 15 93 11/25/17 10:00 49 12 97 11/25/17 09:42 36.6 52 18 161/65 (97) 94 Oxymask 3.0 11/25/17 09:06 55 19 136/32 (66) 95 Oxymask 3.0 11/25/17 09:00 54 21 95 11/25/17 08:40 Oxymask 3.0 11/25/17 07:00 51 14 11/25/17 04:00 Oxymask 3.0 11/25/17 04:00 36.6 52 18 161/65 (97) 94 Oxymask 3.0 11/25/17 00:01 Oxymask 3.0 11/25/17 00:01 36.7 55 16 128/59 (82) 95 Oxymask 3.0 11/24/17 20:00 36.8 55 16 127/50 (75) 96 Oxymask 2.0 11/24/17 20:00 96 Oxymask 2.0 11/24/17 16:00 37.0 54 19 134/48 (76) 93 Nasal Cannula 2.0 11/24/17 16:00 93 Nasal Cannula 2.0 Physical Exam General Appearance: WD/WN, no apparent distress Eyes: normal inspection, EOMI, sclerae normal ENT: normal ENT inspection, hearing grossly normal, pharynx normal Neck: supple, no adenopathy, no JVD, trachea midline Respiratory/Chest: chest non-tender, normal breath sounds, no respiratory distress, no accessory muscle use, + crackles (right sided) Cardiovascular: no edema, no gallop, no JVD, no murmur, + bradycardia Abdomen: normal bowel sounds, non tender, soft, no organomegaly Extremities: normal range of motion, non-tender, normal inspection, no pedal edema, no calf tenderness, pelvis stable Neurologic/Psychiatric: medical assistant prn II-XII nml as tested, no motor/sensory deficits, alert, normal mood/affect, oriented x 3 Skin: normal color, warm/dry, no rash Lymphatic: no adenopathy Laboratory Results Last 24 Hours Test 11/24/17 14:03 11/24/17 22:05 11/25/17 04:54 11/25/17 09:47 Total Creatine Kinase 35 U/L 30 U/L Creatine Kinase MB 1.1 ng/ml 0.8 ng/ml Creatine Kinase MB Ratio 3.1 2.7 Troponin I < 0.015 ng/ml < 0.015 ng/ml White Blood Count 5.44 K/uL Red Blood Count 3.58 M/uL Hemoglobin 12.4 g/dL Hematocrit 37.5 % Mean Corpuscular Volume 104.7 fL Mean Corpuscular Hemoglobin 34.6 pg Mean Corpuscular Hemoglobin Concent 33.1 g/dl Platelet Count 82 K/uL Mean Platelet Volume 10.1 fL Neutrophils (%) (Auto) 78.4 % Lymphocytes (%) (Auto) 8.8 % Monocytes (%) (Auto) 10.1 % Eosinophils (%) (Auto) 1.8 % Basophils (%) (Auto) 0.7 % Neutrophils # (Auto) 4.26 K/uL Lymphocytes # (Auto) 0.48 K/uL Monocytes # (Auto) 0.55 K/uL Eosinophils # (Auto) 0.10 K/uL Basophils # (Auto) 0.04 K/uL RDW Standard Deviation 54.5 fL RDW Coefficient of Variation 14.2 % Immature Granulocyte % (Auto) 0.2 % Immature Granulocyte # (Auto) 0.01 K/uL Platelet Estimate DECREASED Prothrombin Time 12.7 SECONDS Prothromb Time International Ratio 1.2 Activated Partial Thromboplast Time 35.4 SECONDS Partial Thromboplastin Ratio 1.4 Phosphorus Level 3.0 mg/dl Magnesium Level 2.0 mg/dl Total Bilirubin 1.0 mg/dl Direct Bilirubin 0.4 mg/dl Aspartate Amino Transf (AST/SGOT) 38 U/L Alanine Aminotransferase (ALT/SGPT) 44 U/L Alkaline Phosphatase 129 U/L Total Protein 5.8 gm/dl Albumin 2.6 gm/dl Thyroid Stimulating Hormone (TSH) 1.440 uIu/ml Assessment and Plan 62 yo male with chronic hypoxia, presented with right sided pneumonia, had bradycardia in the ED - Multilobar pneumonia, right middle and lower afebrile, WBC now normal, minimal cough, breathing stable on 3L continue Doxycycline and Rocephin possible d/c tomorrow - Chronic hypoxia: stable at 3L - Bradycardia: due to increased vagal tone in the ED, dropped to 20 bpm, symptomatic resolved with Atropine, dopamine drip off for over 24 hours holding Amiodarone and beta blockers, cardiology following - Atrial fibrillation holding amiodarone, continue Eliquis continue on tele, possible d/c tomorrow if okay with cardiology
[2017-11-25] MEDS: CEFTRIAXONE SOD INJ 2,000 MG in DEXTROSE 5% 50ML 50 ML IV SCH (13:58)
--- NOTE | 2017-11-25 14:00 | Medical Student: [facility] ---
Med Student Progress Note Date of Service Nov 25, 2017. Subjective Pt evaluation today including: conversation w/ patient, physical exam, chart review Pain: denies pain PO Intake: normal diet Voiding: no voiding problems Manuel is a 62 year old male with a history of afib, CHF, and COPD who presented to the ED on 11/24/17 in the morning c/o shortness of breath, right rib pain, and shaking chills. Experienced a transient episode of bradycardia ( HRs were in the 60s --> 20s) shortly after arrival to the ED. Spiked a fever of 38.5 and had a WBC of 14. Resolved with atropine and a dopamine drip. Was discovered to have right-sided multilobar PNA involving the right middle and lower lobe. Today Manuel was seen at the bedside in the ICU. He is eating well and walking around without any problems. Reports no issues with urination. Had a BM this AM. Is not sleeping well. Denies chest pain. Denies pleuritic pain and dyspnea. Denies headache, dizziness and lightheadedness. Denies N/V/D/C. Has not had fever/chills/night sweats recently. Feels back to baseline and asked to leave today. Review of Systems Constitutional: + see HPI Respiratory: + see HPI Cardiac: + see HPI Abdomen: + see HPI Objective Vital Signs Date Time Temp Pulse Resp B/P (MAP) Pulse Ox O2 Delivery O2 Flow Rate FiO2 11/25/17 12:07 36.8 54 15 136/48 (77) 98 Nasal Cannula 2.0 11/25/17 12:00 56 17 97 11/25/17 12:00 95 Nasal Cannula 2.0 11/25/17 11:00 49 15 93 11/25/17 10:00 49 12 97 11/25/17 09:42 36.6 52 18 161/65 (97) 94 Oxymask 3.0 11/25/17 09:06 55 19 136/32 (66) 95 Oxymask 3.0 11/25/17 09:00 54 21 95 11/25/17 08:40 Oxymask 3.0 11/25/17 07:00 51 14 11/25/17 04:00 Oxymask 3.0 11/25/17 04:00 36.6 52 18 161/65 (97) 94 Oxymask 3.0 11/25/17 00:01 Oxymask 3.0 11/25/17 00:01 36.7 55 16 128/59 (82) 95 Oxymask 3.0 11/24/17 20:00 36.8 55 16 127/50 (75) 96 Oxymask 2.0 11/24/17 20:00 96 Oxymask 2.0 11/24/17 16:00 37.0 54 19 134/48 (76) 93 Nasal Cannula 2.0 11/24/17 16:00 93 Nasal Cannula 2.0 Physical Exam General Appearance: WD/WN, no apparent distress ENT: hearing grossly normal, pharynx normal Neck: supple, no adenopathy, thyroid normal, no JVD Respiratory/Chest: chest non-tender, no respiratory distress, no accessory muscle use, + wheezing (diffuse end expiratory wheezes ) Cardiovascular: no edema, no JVD, no murmur, + irregularly irregular Abdomen: normal bowel sounds, non tender, soft Extremities: non-tender, normal inspection, no pedal edema, no calf tenderness Neurologic/Psychiatric: alert, normal mood/affect, oriented x 3 Laboratory Results Last 24 Hours Test 11/24/17 14:03 11/24/17 22:05 11/25/17 04:54 11/25/17 09:47 Total Creatine Kinase 35 U/L 30 U/L Creatine Kinase MB 1.1 ng/ml 0.8 ng/ml Creatine Kinase MB Ratio 3.1 2.7 Troponin I < 0.015 ng/ml < 0.015 ng/ml White Blood Count 5.44 K/uL Red Blood Count 3.58 M/uL Hemoglobin 12.4 g/dL Hematocrit 37.5 % Mean Corpuscular Volume 104.7 fL Mean Corpuscular Hemoglobin 34.6 pg Mean Corpuscular Hemoglobin Concent 33.1 g/dl Platelet Count 82 K/uL Mean Platelet Volume 10.1 fL Neutrophils (%) (Auto) 78.4 % Lymphocytes (%) (Auto) 8.8 % Monocytes (%) (Auto) 10.1 % Eosinophils (%) (Auto) 1.8 % Basophils (%) (Auto) 0.7 % Neutrophils # (Auto) 4.26 K/uL Lymphocytes # (Auto) 0.48 K/uL Monocytes # (Auto) 0.55 K/uL Eosinophils # (Auto) 0.10 K/uL Basophils # (Auto) 0.04 K/uL RDW Standard Deviation 54.5 fL RDW Coefficient of Variation 14.2 % Immature Granulocyte % (Auto) 0.2 % Immature Granulocyte # (Auto) 0.01 K/uL Platelet Estimate DECREASED Prothrombin Time 12.7 SECONDS Prothromb Time International Ratio 1.2 Activated Partial Thromboplast Time 35.4 SECONDS Partial Thromboplastin Ratio 1.4 Phosphorus Level 3.0 mg/dl Magnesium Level 2.0 mg/dl Total Bilirubin 1.0 mg/dl Direct Bilirubin 0.4 mg/dl Aspartate Amino Transf (AST/SGOT) 38 U/L Alanine Aminotransferase (ALT/SGPT) 44 U/L Alkaline Phosphatase 129 U/L Total Protein 5.8 gm/dl Albumin 2.6 gm/dl Thyroid Stimulating Hormone (TSH) 1.440 uIu/ml Assessment and Plan Assessment and Plan: In summary, Manuel is a 62 year old male with a history of afib, chronic hypoxia , COPD, CHF who presented with a five day history of coughing, myalgias and one day history of shaking chills and right sided rib pain. Experienced an episode of bradycardia in the ED that has resolved and has right multilobar pneumonia. Right multilobar (middle and lower) pneumonia -continue IV ceftriaxone 2g and doxycycline 100 mg, oxygen at 3L -monitor temperature, oxygen saturation, WBC Transient bradycardia (HR in 60s in the ED --> 20s) -per cardiology consult, thought to be secondary to increased vagal tone -hold amiodarone 200 mg po BID and Lopressor 25 mg po TID -awaiting TSH ordered by cardiology Chronic hypoxia -continue on 3L of oxygen via mask Atrial fibrillation -continue on Eliquis 5 mg PO BID Transfer from ICU to Med/Surg. Monitor heart rate for one more day and can plan for discharge on 11/26/17 on oral antibiotics.
[2017-11-25] MEDS: SIMVASTATIN 40 MG TAB PO SCH (20:08)
[2017-11-25] MEDS: ACETAMINOPHEN 325 MG TAB PO PRN (20:13)
[2017-11-25] MEDS ORDERED: NURSING VERBAL MED ORDER ONE (22:30)
[2017-11-25] MEDS ORDERED: LORAZEPAM 0.5 MG TAB PO PRN (22:45)
[2017-11-26] MEDS: SODIUM CHLORIDE 0.9% 1000ML 1,000 ML IV SCH (02:32)
[2017-11-26 03:40] VITALS: BP 144/58; PULSE 59; TEMP 36.9; O2SAT 96
[2017-11-26 05:33] LABS: HEMATOCRIT 36.9 % (42-52); MEAN CELL VOLUME 105.1 fL (80-100); MEAN CORPUSCULAR HEMOGLOBIN 34.2 pg (25-34); MEAN CORPUSCULAR HGB CONC 32.5 g/dl (32-36); RED CELL DISTRIBUTION WIDTH CV 14.1 % (11.5-14.5); RED CELL DISTRIBUTION WIDTH SD 53.8 fL (36.4-46.3); WHITE BLOOD COUNT 4.71 K/uL (4.8-10.8)
[2017-11-26 05:44] LABS: MEAN PLATELET VOLUME 10.2 fL (7.4-10.4); PLATELET COUNT 86 K/uL (130-400)
[2017-11-26 05:58] LABS: BASO % 0.6 %; BASO ABS # 0.03 K/uL (0-0.2); EOS % 2.5 %; EOS ABS # 0.12 K/uL (0-0.5); IG# 0.02 K/uL (0.00-0.02); LYMPH % 10.4 %; LYMPH ABS # 0.49 K/uL (1.2-3.4); MONO % 11.7 %; MONO ABS # 0.55 K/uL (0.11-0.59); NEUT % 74.4 %
[2017-11-26 06:00] LABS: CALCIUM 7.9 mg/dl (8.5-10.1); CREATININE 1.09 mg/dl (0.60-1.40); POTASSIUM 3.5 mmol/L (3.5-5.1)
--- NOTE | 2017-11-26 07:01 | DIAGNOSTIC IMAGING REPORT ---
CHEST ONE VIEW PORTABLE CLINICAL HISTORY: pna/chf dyspnea COMPARISON STUDY: 11/25/2017 FINDINGS: Unchanging components of congestive failure. Slight increase in right basilar atelectatic change. Left hemidiaphragm remain smooth. Heart remains mildly enlarged. IMPRESSION: Stable exam with unchanging components of congestive failure. Slight increase in right basilar atelectatic change. The above report was generated using voice recognition software. It may contain grammatical, syntax or spelling errors. Electronically signed by: Raymundo Fitzgerald M.D. 11/26/2017 6:59 AM Dictated Date/Time: 11/26/2017 6:57 AM
[2017-11-26 07:21] VITALS: BP 165/78; PULSE 58; TEMP 36.9; O2SAT 93
[2017-11-26] MEDS: FLUTICASONE/SALMETEROL (ADVAIR) 500/50 INH 14 PUFF INH SCH (07:47)
[2017-11-26] MEDS: IPRATROPIUM BROMIDE/ALBUTEROL respimat INH INH SCH (07:48)
[2017-11-26] MEDS: DOXYCYCLINE HYCLATE 100 MG CAP PO SCH (07:48)
[2017-11-26] MEDS: FUROSEMIDE 40 MG TAB PO SCH (07:49)
[2017-11-26] MEDS: APIXABAN 2.5 MG TAB PO SCH (07:49)
[2017-11-26 11:03] VITALS: BP 155/72; PULSE 60; TEMP 36.8; O2SAT 93
[2017-11-26] MEDS ORDERED: LSN20 PO (11:19)
[2017-11-26] MEDS ORDERED: DXY100 PO (11:19)
[2017-11-26] MEDS ORDERED: CEFD300C3 PO (11:19)
--- NOTE | 2017-11-26 11:28 | Discharge Instructions ---
Discharge Instructions Date of Service Nov 26, 2017. Admission Reason for Admission: Acute Resp Failure W/ Hypoxia, Sympto. Bradycardia Discharge Discharge Diagnosis / Problem: Acute hypoxic respiratory failure, pneumonia, bradycardia Discharge Goals Goal(s): Decrease discomfort, Improve function Activity Recommendations Activity Limitations: resume your previous activity . Instructions / Follow-Up Instructions / Follow-Up Medications: - Doxycycline and Cefdinir: antibiotics for pneumonia, take for 4 more days then stop, this would be total of 7 days treatment - Metoprolol: stopped this medication due to slow heart rate - Lisinopril: new blood pressure medication since we stopped the metoprolol - Amiodarone: held during admission Pneumonia: breathing comfortably, no fever, normal WBC, responding well to antibiotics complete 4 more days of antibiotic therapy Bradycardia: evaluated by Dr. Calderon, most likely increased vagal tone in setting of infection, taking metoprolol holding metoprolol safe to resume Amiodarone Atrial fibrillation: in sinus rhythm, continue Amiodarone FOLLOW UP - Dr. Azevedo in 5-7 days, please call to schedule a hospital follow up - Dr. Calderon in 1-2 weeks, please call to schedule appointment, [phone] Current Hospital Diet Patient's current hospital diet: AHA Diet (Heart Healthy) Discharge Diet Recommended Diet: AHA Diet (Heart Healthy) Pending Studies Studies pending at discharge: yes List of pending studies: Amiodarone levels, Dr Calderon will have results Medical Emergencies . Who to Call and When: Medical Emergencies: If at any time you feel your situation is an emergency, please call 911 immediately. . Non-Emergent Contact Non-Emergency issues call your: Primary Care Provider, Senior Portfolio Manager Call Non-Emergent contact if: you have any medication questions . . "Provider Documentation" section prepared by Cory Rueda. . VTE Core Measure Inpt VTE Proph given/why not?: Other Anticoagulation, Contraindicated [place] Drug Monitoring Program Search Results: no issues identified
--- NOTE | 2017-11-26 11:42 | Cardiology Follow-Up ---
Subjective Date of Service: Nov 26, 2017. Pt evaluation today including: conversation w/ patient, conversation w/ family , physical exam, lab review, review of studies, review of inpatient medication list, conversation w/ attending History of Present Illness This is a 61-year-old gentleman with a history of mild carotid disease, COPD with cor pulmonale, long-standing tobacco and alcohol abuse who presented with near syncope and was observed to be in atrial fibrillation with a rapid ventricular response on December 10, 2010. He also had some chest heaviness when he presented with that arrhythmia. He was feeling poorly throughout most of that day, it is likely that the arrhythmia started that morning and it subsequently terminated spontaneously the same day in the hospital. Evaluation in the hospital included echocardiography and stress testing. The echocardiogram suggested right ventricular dysfunction, the stress test suggested ischemia in the LAD distribution. Based on lack of any anginal symptoms other than during the arrhythmia invasive evaluation has not been performed however he is being treated medically for atherosclerosis. He was discharged from the hospital on low dose beta blockade given his COPD. He had a recurrence of his arrhythmia in December of 2010 (based on symptoms) with some dizziness therefore we added digoxin to his regimen. On a dose of 0.25 mg daily he had a level of 2.0 therefore this was reduced at 0.125 mg daily. He presented to [facility] 01/13/2015 in atrial flutter with a rapid heart rate. Additionally he had a respiratory illness which may have contributed to the rapid heart rate. He also had a rapid wide complex tachycardia at about 250 bpm which was likely 1-1 conduction of his atrial flutter with aberrancy. He tolerated it reasonably well. He was treated with amiodarone for control of the arrhythmia and spontaneously converted to sinus rhythm. His amiodarone has been continued. He was started on Coumadin, however his INR was elevated at 4.6 on 01/28/2015 and this was discontinued and switched to Eliquis which was started on 02/07/2015. He Has been tolerating Eliquis well. Since starting amiodarone his rhythm has not been much of an issue, He presented to the emergency room on November 24, 2017 with a week of what sounds like respiratory symptoms including an achy feeling and a dry cough, he then developed right sided rib discomfort and shakes as well as feeling cold. In the emergency room initially his heart rate was in the 60s his blood pressure was 160 systolic, however after arrival he became transiently bradycardic into the 20s for which she received atropine and a dopamine drip. On review this appears to be sinus bradycardia, not heart block and he recalls feeling lightheaded at that time but not other times. The dopamine has just been discontinued. He was febrile and had a leukocytosis and an elevated lactic acid, this is all consistent with infection. He was treated with broad- spectrum antibiotics. I reviewed medications with his , he is on amiodarone 200 mg twice a day, apixaban 5 mg twice a day and metoprolol tartrate, although that dose evidently was recently decreased as an outpatient, for unknown reasons (perhaps bradycardia?). He has not been having symptoms of lightheadedness or dizziness , he has not had symptoms of palpitations to suggest recurrent atrial arrhythmias. He notes that his heart rate is often low but has not had hemodynamic symptoms that I can elicit. Today he feels well, he has very few pulmonary symptoms. No cardiovascular symptoms, no lightheadedness or dizziness. Social History Smoking Status: Former Smoker History of Alcohol Use: Yes (3-4 BEERS/DAY) Review of Systems Respiratory: + see HPI Cardiac: + see HPI Medications Cardiovascular: Item Value Date Time Simvastatin 40 mg 11/24/17 2100 (Zocor Tab) QPM/PO 11/25/172007 Apixaban 5 mg 11/24/17 2100 (Eliquis Tab) BID/PO 11/26/17 0749 Furosemide 40 mg 11/24/17 0900 (Lasix Tab) BID17/PO 11/26/17 0749 Objective Vital Signs Past 12 Hours Date Time Temp Pulse Resp B/P (MAP) Pulse Ox O2 Delivery O2 Flow Rate FiO2 11/26/17 11:03 36.8 60 19 155/72 (99) 93 Room Air 2.0 11/26/17 08:00 Nasal Cannula 3.0 11/26/17 07:21 36.9 58 24 165/78 (107) 93 Nasal Cannula 3.0 11/26/17 04:00 Nasal Cannula 3.0 11/26/17 03:40 36.9 59 17 144/58 (86) 96 Nasal Cannula 3.0 11/26/17 00:00 Nasal Cannula 3.0 Last Recorded Weight-Kilograms: 104.400 Physical Exam Constitutional: General Apperance: heathly-appearing Level of Distress: NAD Lungs: Respiratory effort: no dyspnea, good air movement Auscultation: no wheezing, rales/crackles on the right Cardiovascular: Heart Auscultation: RRR, no murmurs, no rubs, no gallops, bradycardia Peripheral Pulses: Bruits: none appreciated Extremities: no edema Data Laboratory Results: Last 24 Hours Test 11/26/17 05:14 White Blood Count 4.71 K/uL Red Blood Count 3.51 M/uL Hemoglobin 12.0 g/dL Hematocrit 36.9 % Mean Corpuscular Volume 105.1 fL Mean Corpuscular Hemoglobin 34.2 pg Mean Corpuscular Hemoglobin Concent 32.5 g/dl Platelet Count 86 K/uL Mean Platelet Volume 10.2 fL Neutrophils (%) (Auto) 74.4 % Lymphocytes (%) (Auto) 10.4 % Monocytes (%) (Auto) 11.7 % Eosinophils (%) (Auto) 2.5 % Basophils (%) (Auto) 0.6 % Neutrophils # (Auto) 3.50 K/uL Lymphocytes # (Auto) 0.49 K/uL Monocytes # (Auto) 0.55 K/uL Eosinophils # (Auto) 0.12 K/uL Basophils # (Auto) 0.03 K/uL RDW Standard Deviation 53.8 fL RDW Coefficient of Variation 14.1 % Immature Granulocyte % (Auto) 0.4 % Immature Granulocyte # (Auto) 0.02 K/uL Large Platelets 1+ Sodium Level 140 mmol/L Potassium Level 3.5 mmol/L Chloride Level 107 mmol/L Carbon Dioxide Level 27 mmol/L Anion Gap 6.0 mmol/L Blood Urea Nitrogen 18 mg/dl Creatinine 1.09 mg/dl Est Creatinine Clear Calc Drug Dose 90.8 ml/min Estimated GFR () 83.3 Estimated GFR (Non- 71.9 BUN/Creatinine Ratio 16.7 Random Glucose 106 mg/dl Calcium Level 7.9 mg/dl Telemetry reviewed: Predominantly sinus bradycardia, some sinus rhythm. No significant slowing. Assessment and Plan 1. Bradycardia: I suspect his presenting event was vagal in etiology, he does not have a history of symptoms suggestive of bradycardia but he did feel this episode in the emergency room so I suspect if he had that at home he would feel it. I suspect it is related to his acute illness. I would discontinue beta blockade, I do not know that he needs that. I suspect he will not need a pacemaker but we need to continue to monitor his rhythm. 2. Amiodarone therapy: He was on amiodarone at a fairly high dose, I do not know what his level currently is, it is still pending. He had some slight liver function abnormalities on admission, however those have improved. I would recommend restarting amiodarone at his outpatient dose, we will follow him up and adjust as needed based on his level. 3. Atrial fibrillation: Symptomatically he has done very well with his atrial arrhythmia on amiodarone, and we have no documentation that he has had much recurrence. He is tolerating amiodarone well (assuming that it was not a cause of his significant bradycardia) and I would continue it. If he has recurrent atrial fibrillation he is protected on Eliquis. 4. Coronary disease: We have never proven that he has coronary disease, we have felt that it is likely but he has not had a catheterization to my knowledge. Despite his presentation his enzymes have been negative. I would not pursue further evaluation or treatment other than what we are doing already. Thank you for allowing me to participate in his care.
[2017-11-26 11:58] VITALS: BP 155/72; PULSE 60; TEMP 36.8; O2SAT 93
--- NOTE | 2017-11-26 16:24 | Medical Student: [facility] ---
Med Student Progress Note Date of Service Nov 26, 2017. Subjective Pt evaluation today including: conversation w/ patient, conversation w/ family , physical exam, chart review, lab review Pain: none PO Intake: normal diet Voiding: no voiding problems Manuel is a 62 year old gentleman with a history of afib, COPD, and CHF admitted on 11/24 for a five day long history of myalgia, cough and development of shaking chills. He experienced a transient episode of bradycardia in the ED, which resolved with 0.5 mg atropine and a dopamine drip. Chest CT showed multilobar pneumonia in the right middle and lower lobe. Was started on doxycycline and ceftriaxone. On 11/25 seemed clinically improved, close to baseline. Today Manuel was seen at the bedside with his . He reported no pain or other complaints. His appetite is good and he is drinking easily. He is voiding adequately with his last BM this AM. Denies any lightheadedness or dizziness and had no episodes of bradycardia overnight. Denies fever, chills, or night sweats. Denies body aches. States that he has a dry cough today and that yesterday is cough was somewhat productive. He expectorated yellow sputum that was somewhat blood-tinged and was subsequently sent to the lab. Denies any chest pain. Has some shortness of breath but that it is at about baseline. Has been using his Advair and says it is helpful. Review of Systems Constitutional: No fever, No chills, No sweats Respiratory: + cough (occasional) Cardiac: No chest pain Abdomen: No pain, No nausea, No vomiting, No diarrhea, No constipation Objective Vital Signs Date Time Temp Pulse Resp B/P (MAP) Pulse Ox O2 Delivery O2 Flow Rate FiO2 11/26/17 11:58 36.8 60 19 93 Nasal Cannula 11/26/17 11:03 36.8 60 19 155/72 (99) 93 Room Air 2.0 11/26/17 08:00 Nasal Cannula 3.0 11/26/17 07:21 36.9 58 24 165/78 (107) 93 Nasal Cannula 3.0 11/26/17 04:00 Nasal Cannula 3.0 11/26/17 03:40 36.9 59 17 144/58 (86) 96 Nasal Cannula 3.0 11/26/17 00:00 Nasal Cannula 3.0 11/25/17 23:30 37.2 56 20 157/70 (99) 94 Nasal Cannula 3.0 11/25/17 20:00 Room Air 11/25/17 20:00 37.3 53 18 148/68 (94) 98 Oxymask 3.0 11/25/17 16:10 37.4 55 16 144/54 (84) 93 Oxymask 2.0 Physical Exam General Appearance: WD/WN, no apparent distress Neck: supple, no adenopathy, thyroid normal Respiratory/Chest: chest non-tender, lungs clear (heard less wheezing today ), normal breath sounds, no respiratory distress, no accessory muscle use Cardiovascular: regular rate, rhythm, no edema, no gallop, no JVD, no murmur Abdomen: normal bowel sounds, non tender, soft Extremities: non-tender, normal inspection, no pedal edema, no calf tenderness Neurologic/Psychiatric: alert, normal mood/affect, oriented x 3 Skin: normal color, warm/dry, no rash Laboratory Results Last 24 Hours Test 11/26/17 05:14 White Blood Count 4.71 K/uL Red Blood Count 3.51 M/uL Hemoglobin 12.0 g/dL Hematocrit 36.9 % Mean Corpuscular Volume 105.1 fL Mean Corpuscular Hemoglobin 34.2 pg Mean Corpuscular Hemoglobin Concent 32.5 g/dl Platelet Count 86 K/uL Mean Platelet Volume 10.2 fL Neutrophils (%) (Auto) 74.4 % Lymphocytes (%) (Auto) 10.4 % Monocytes (%) (Auto) 11.7 % Eosinophils (%) (Auto) 2.5 % Basophils (%) (Auto) 0.6 % Neutrophils # (Auto) 3.50 K/uL Lymphocytes # (Auto) 0.49 K/uL Monocytes # (Auto) 0.55 K/uL Eosinophils # (Auto) 0.12 K/uL Basophils # (Auto) 0.03 K/uL RDW Standard Deviation 53.8 fL RDW Coefficient of Variation 14.1 % Immature Granulocyte % (Auto) 0.4 % Immature Granulocyte # (Auto) 0.02 K/uL Large Platelets 1+ Sodium Level 140 mmol/L Potassium Level 3.5 mmol/L Chloride Level 107 mmol/L Carbon Dioxide Level 27 mmol/L Anion Gap 6.0 mmol/L Blood Urea Nitrogen 18 mg/dl Creatinine 1.09 mg/dl Est Creatinine Clear Calc Drug Dose 90.8 ml/min Estimated GFR () 83.3 Estimated GFR (Non- 71.9 BUN/Creatinine Ratio 16.7 Random Glucose 106 mg/dl Calcium Level 7.9 mg/dl Assessment and Plan Assessment and Plan: In summary, Manuel is a 62 year old male with a history of afib, chronic hypoxia , COPD, CHF who presented with a five day history of coughing, myalgias and one day history of shaking chills and right sided rib pain. Experienced an episode of bradycardia in the ED that has resolved and has right multilobar pneumonia. Right multilobar (middle and lower) pneumonia -Manuel is improved from admission and is doing much better. He has had no fevers, a normal WBC, an improving cough, and shortness of breath is back to baseline. Plan for discharge today. -switch him from IV ceftriaxone 2g to po cefdinir and continue doxycycline 100 mg po for four more days (total of seven days of antibiotic therapy) Transient bradycardia (HR in 60s in the ED --> 20s) -per cardiology consult, thought to be secondary to increased vagal tone from infection -hold Lopressor 25 mg po TID -TSH was ordered by cardiology - was normal HTN -pressures ran high in the 140s-150s overnight -start on lisinopril 20 mg po BID Chronic hypoxia -continue on 3L of oxygen via mask Atrial fibrillation -continue on Eliquis 5 mg PO BID -per cardiology, safe to restart amiodarone 200 mg po BID Plan for discharge today. Discharge planning: home
--- NOTE | 2017-11-27 07:50 | Discharge Summary ---
Discharge Summary Date of Service Nov 27, 2017. Discharge Summary Admission Date: Nov 24, 2017 at 06:12 Discharge Date: Nov 26, 2017 Discharge Disposition: Home Principal Diagnosis: Right lower and middle lobe pneumonia Problems/Secondary Diagnoses: Symptomatic bradycardia, increased vagal tone Atrial fibrillation Chronic hypoxic respiratory failure Immunizations: Have You Had Influenza Vaccine: Yes History of Tetanus Vaccine?: Yes History of Pneumococcal: Yes History of Hepatitis B Vaccine: No Procedures: none Consultations: Cardiology Critical care Medication Reconciliation New Medications: Cefdinir (Cefdinir) 300 Mg Cap 300 MG PO DAILY for 4 Days, #4 CAP 0 Refills Lisinopril (Lisinopril) 20 Mg Tab 20 MG PO DAILY for 30 Days, #30 TABS 1 Refill Doxycycline Hyclate (Doxycycline Hyclate) 100 Mg Cap 100 MG PO BID, #9 CAP 0 Refills Continued Medications: Acetazolamide (Acetazolamide) 250 Mg Tab 1 TAB PO QPM Amiodarone Hcl (Cordarone) 200 Mg Tab 200 MG PO BID Apixaban (Eliquis) 5 Mg Tab 5 MG PO BID Fluticasone Prop/Salmeterol (Advair Diskus 500/50 60 Dose) 1 Ea Aerp 1 PUFF INH BID Furosemide (Lasix) 40 Mg Tab 40 MG PO BID, TAB Home O2 Therapy (Oxygen) Gas 4 LITERS NA CONTINOUS Ipratropium-Albuterol (Combivent Respimat) 1 Aer Aer 1 PUFFS INH QID PRN for SOB/Wheezing Ipratropium-Albuterol (Duoneb) 3 Ml Nebu 1 TREATMENT INH BID, INHA Nitroglycerin (Nitrostat) 0.4 Mg Tab 0.4 MG UT DIRECTED PRN for chest pain, BTL Omeprazole (Prilosec) 20 Mg Cap 20 MG PO BID Potassium Chloride (K-Tab) 20 Meq Tab 1 TAB PO BID Simvastatin (Zocor) 40 Mg Tab 40 MG PO QPM, TAB Discontinued Medications: Metoprolol Tartrate (Lopressor) 25 Mg Tab 25 MG PO TID, TAB Discharge Exam Patient feeling well, breathing comfortably, minimal cough. Vitals stable, no bradycardia since admission. Discussed plans for discharge with Dr. Calderon, will continue Amiodarone, follow up in the office. Discussed medications with patient, stressed importance of finishing antibiotics. Discussed that metoprolol was stopped. Will start on Lisinopril for BP control, he said that he tolerated that in the past, was stopped when he started metoprolol. Review of Systems: Constitutional: No fever, No chills, No sweats, No weight loss, No weakness , No fatigue, No problem reported Eyes: No worsening of vision, No eye pain, No redness, No discharge, No diplopia, No problem reported ENT: No hearing loss, No unusual epistaxis, No nasal symptoms, No sore throat, No tinnitus, No dental problems, No trouble swallowing, No problem reported Respiratory: + cough, No sputum, No wheezing, No shortness of breath, No dyspnea on exertion, No dyspnea at rest, No hemoptysis, No problem reported Cardiovascular: No chest pain, No orthopnea, No PND, No edema, No claudication, No palpitations, No problem reported Abdomen: No pain, No nausea, No vomiting, No diarrhea, No constipation, No GI bleeding, No problem reported Musculoskeletal: No joint pain, No muscle pain, No swelling, No calf pain, No problem reported Genitourinary - Male: No hematuria, No dysuria, No urinary frequency, No urinary urgency Neurologic: No memory loss, No paralysis, No weakness, No numbness/tingling , No vertigo, No balance problems, No problem reported Psychiatric: No depression symptoms, No anhedonism, No anxiety, No insomnia , No substance abuse, No problem reported Endocrine: No fatigue, No excessive thirst, No excessive urination, No problem reported Hematologic / Lymphatic: No abnormal bleeding/bruising, No clotting problems , No swollen lymph nodes, No night sweats, No problem reported Integumentary: No rash, No itch, No new/changing skin lesions, No color change, No bleeding, No problem reported Physical Exam: General Appearance: no apparent distress, + obese Eyes: normal inspection, EOMI, sclerae normal ENT: normal ENT inspection, hearing grossly normal, pharynx normal Neck: supple, no adenopathy, no JVD, trachea midline Respiratory/Chest: chest non-tender, lungs clear, normal breath sounds, no respiratory distress, no accessory muscle use Cardiovascular: regular rate, rhythm, no edema, no gallop, no JVD, no murmur , normal peripheral pulses Abdomen / GI: normal bowel sounds, non tender, soft, no organomegaly Extremities: normal inspection, no calf tenderness, normal capillary refill , no pedal edema, normal range of motion, pelvis stable Neurologic/Psychiatric: armature bander II-XII nml as tested, no motor/sensory deficits , alert, normal mood/affect, normal reflexes, oriented x 3 Skin: normal color, warm/dry, no rash Hospital Course 62 yo male with chronic hypoxia, presented with right sided pneumonia, had bradycardia in the ED - Multilobar pneumonia, right middle and lower afebrile, WBC normal for two days, minimal cough, breathing stable on 3L which is what he wears at home continue Doxycycline 100mg BID x 4 more days on discharge, change to Cefdinir 300mg daily for 4 days to replace Rocephin will ultimately complete 7 days of antibiotics d/c to home, follow up with PCP next week - Chronic hypoxia: stable at 3L - Bradycardia: due to increased vagal tone in the ED, dropped to 20 bpm, symptomatic resolved with Atropine, dopamine drip (was only on drip for 2 hours) off for over 48 hours metoprolol stopped, will continue to be held on discharge Amiodarone was held during admission, d/w Dr. Calderon, lucho to resume on discharge - Atrial fibrillation resume amiodarone 200mg BID, continue Eliquis Total Time Spent: Greater than 30 minutes This includes examination of the patient, discharge planning, medication reconciliation, and communication with other providers. Discharge Instructions Please refer to the electronic Patient Visit Report (Discharge Instructions) for additional information. Follow-Up Dr. Azevedo in one week Dr. Calderon in 2-3 weeks Additional Copies To Luis Azevedo M.D.; Monty Calderon M.D.
--- NOTE | 2017-12-08 06:44 | History and Physical ---
History & Physical Date & Time of Service: Dec 08, 2017 at 06:40 Chief Complaint: Acute Resp Failure W/ Hypoxia, Sympto. Bradycardia Primary Care Physician: Luis Azevedo M.D. History of Present Illness Source: patient, hospital records The patient was directly admitted from the emergency department to the ICU by communication from emergency department staff to ICU staff. Family History Cancer Heart disease Hypertension Social History Smoking Status: Former Smoker Smokeless Tobacco Use: No Alcohol Use: heavy Drug Use: none Marital Status: Housing status: lives with significant other Occupational Status: employed Immunizations History of Influenza Vaccine: Yes History of Tetanus Vaccine?: Yes History of Pneumococcal: Yes History of Hepatitis B Vaccine: No Allergies Coded Allergies: No Known Allergies (Unverified , 12/15/16) Home Medications Scheduled Acetazolamide (Acetazolamide), 1 TAB PO QPM Amiodarone Hcl (Cordarone), 200 MG PO BID Apixaban (Eliquis), 5 MG PO BID Cefdinir (Cefdinir), 300 MG PO DAILY Doxycycline Hyclate (Doxycycline Hyclate), 100 MG PO BID Fluticasone Prop/Salmeterol (Advair Diskus 500/50 60 Dose), 1 PUFF INH BID Furosemide (Lasix), 40 MG PO BID Home O2 Therapy (Oxygen), 4 LITERS NA CONTINOUS Ipratropium-Albuterol (Duoneb), 1 TREATMENT INH BID Lisinopril (Lisinopril), 20 MG PO DAILY Omeprazole (Prilosec), 20 MG PO BID Potassium Chloride (K-Tab), 1 TAB PO BID Simvastatin (Zocor), 40 MG PO QPM Scheduled PRN Ipratropium-Albuterol (Combivent Respimat), 1 PUFFS INH QID PRN for SOB/Wheezing Nitroglycerin (Nitrostat), 0.4 MG UT DIRECTED PRN for chest pain Physical Exam Performed by ED staff and ICU staff Impression Assessment and Plan The patient was admitted by direct communication from emergency department staff to ICU staff. Admission to ICU order was completed. Complete care of the patient was undertaken by ICU staff. Advanced Directives Existing Living Will: Yes Existing Power of Clarity Specialists: Yes Resuscitation Status VTE Prophylaxis Will order VTE Prophylaxis: Yes
--- NOTE | 2017-12-10 06:06 | EDITING REQUIRED CODING QUERY ---
SEPSIS To promote full compliance with coding requirements relating to patient care, physician participation is requested in all cases of certified procedural coder uncertainty. Please assist us with the question(s) below: In responding to this query, please exercise your independent professional judgment. The fact that a question is asked does not imply that any particular answer is desired or expected. We appreciate your clarification on this issue. Coding Question: Sepsis was documented in ED note and Critical Care Consult; please clarify below to the best of your knowledge. Thank you for your help! (x) Sepsis, present on admission () Sepsis, ruled-out () Other, patient has:
--- NOTE | 2017-12-10 06:08 | EDITING REQUIRED CODING QUERY ---
CONGESTIVE HEART FAILURE To promote full compliance with coding requirements relating to patient care, physician participation is requested in all cases of supervisor cooperage shop uncertainty. Please assist us with the following questions. A diagnosis of Congestive Heart Failure is documented in the patient's medical record. To accurately code this diagnosis and to compare patient severity, we ask that you specify the type of heart failure by placing an X within the parenthesis (x). Thank you for your help! SYSTOLIC HEART FAILURE ( ) Acute ( ) Chronic ( ) Acute on Chronic ( ) Rheumatic ( ) Unknown DIASTOLIC HEART FAILURE ( ) Acute ( ) Chronic ( ) Acute on Chronic ( ) Rheumatic ( ) Unknown COMBINED SYSTOLIC AND DIASTOLIC HEART FAILURE ( ) Acute ( ) Chronic ( ) Acute on Chronic ( ) Rheumatic ( ) Unknown X history of right sided heart failure, on echo 11/24/17 he had normal LV function, no diastolic dysfunction and his RV was showing normal function as well, so the patient no longer has heart failure Thank you! Diana Montero
== END 2017-11-26 12:45 | disposition home or self-care (01) | DRG 871 ==
LOC: EDBD 04:27 → C.EDB 04:28 → C.MSICU 06:12 → EDBEDREQ 06:16 → ENRESERV 06:31 → C.2T 11-25 18:38
PROVIDERS: ADMIT Hospitalist; ATTEND Internal Medicine
DX: A41.9 Sepsis, unspecified organism (principal); J18.9 Pneumonia, unspecified organism; J96.11 Chronic respiratory failure with hypoxia; R00.1 Bradycardia, unspecified; I48.91 Unspecified atrial fibrillation; I27.81 Cor pulmonale (chronic); J44.9 Chronic obstructive pulmonary disease, unspecified; E86.0 Dehydration; F10.10 Alcohol abuse, uncomplicated; Z79.01 Long term (current) use of anticoagulants; Z79.899 Other long term (current) drug therapy; Z99.81 Dependence on supplemental oxygen; Z87.891 Personal history of nicotine dependence

== ENCOUNTER → 2017-12-29 | Outpatient (CLI) | payer BC ==
[~2017-12-29] MED LIST changes: +CEFD300C3 PO; +DXY100 PO; -LPR25 PO; +LSN20 PO; +NTRGSL/4 UT; -NTRSLP4 SL
--- NOTE | 2017-12-29 08:51 | DIAGNOSTIC IMAGING REPORT ---
CHEST 2 VIEWS ROUTINE CLINICAL HISTORY: 62 years-old Male presenting with J18.9 [id number]. TECHNIQUE: PA and lateral views of the chest were obtained. COMPARISON: 11/26/2017. FINDINGS: Atherosclerosis of the aortic arch. Cardiac silhouette top normal in size. Decreased patchy bibasilar opacities. Linear opacity in the left lung base noted. No pleural effusion or pneumothorax. Osseous structures normal. Upper abdomen normal. IMPRESSION: 1. Decreased patchy bibasilar opacities. Suggestion of scarring or atelectasis at the left lung base. No convincing evidence of acute cardiopulmonary disease. Electronically signed by: Gary Rick M.D. 12/29/2017 8:50 AM Dictated Date/Time: 12/29/2017 8:49 AM
== END ==
LOC: C.RAD 08:22
PROVIDERS: ATTEND Physician Assistant Medical
DX: J18.9 Pneumonia, unspecified organism (principal)

== ENCOUNTER → 2018-01-08 | Outpatient (CLI) | payer BC ==
[2018-01-08 12:21] LABS: BASO % 0.2 %; BASO ABS # 0.02 K/uL (0-0.2); EOS % 0.7 %; EOS ABS # 0.06 K/uL (0-0.5); HEMATOCRIT 40.5 % (42-52); HEMOGLOBIN 13.8 g/dL (14.0-18.0); IG# 0.02 K/uL (0.00-0.02); LYMPH ABS # 0.57 K/uL (1.2-3.4); MEAN CELL VOLUME 101.5 fL (80-100); MEAN CORPUSCULAR HEMOGLOBIN 34.6 pg (25-34); MEAN CORPUSCULAR HGB CONC 34.1 g/dl (32-36); MEAN PLATELET VOLUME 10.1 fL (7.4-10.4); MONO % 9.7 %; MONO ABS # 0.79 K/uL (0.11-0.59); NEUT % 82.2 %; NEUT ABS # 6.71 K/uL (1.4-6.5); PLATELET COUNT 135 K/uL (130-400); RED CELL DISTRIBUTION WIDTH CV 13.6 % (11.5-14.5); RED CELL DISTRIBUTION WIDTH SD 50.8 fL (36.4-46.3); WHITE BLOOD COUNT 8.17 K/uL (4.8-10.8)
[2018-01-08 15:29] LABS: ALBUMIN 3.2 gm/dl (3.4-5.0); ALT/SGPT 94 U/L (12-78); BLOOD UREA NITROGEN 18 mg/dl (7-18); CALCIUM 8.2 mg/dl (8.5-10.1); CARBON DIOXIDE 26 mmol/L (21-32); CHOLESTEROL 127 mg/dl (0-200); CREATININE 1.53 mg/dl (0.60-1.40); GLUCOSE 95 mg/dl (70-99); POTASSIUM 4.3 mmol/L (3.5-5.1); SODIUM 131 mmol/L (136-145)
[2018-01-08 15:40] LABS: ALKALINE PHOSPHATASE 199 U/L (45-117); AST/SGOT 80 U/L (15-37); LDL CHOLESTEROL CALCULATED 45 mg/dl; TOTAL PROTEIN 6.8 gm/dl (6.4-8.2)
== END | disposition home or self-care (01) ==
LOC: C.LABBFT 09:28
PROVIDERS: ATTEND Internal Medicine
DX: Z00.00 Encounter for general adult medical examination without abnormal findings (principal); R39.9 Unspecified symptoms and signs involving the genitourinary system; E78.5 Hyperlipidemia, unspecified; I10 Essential (primary) hypertension; D64.9 Anemia, unspecified; R25.1 Tremor, unspecified

== ENCOUNTER → 2018-01-22 | Outpatient (CLI) | payer BC ==
[2018-01-22 12:35] LABS: BASO % 0.4 %; BASO ABS # 0.03 K/uL (0-0.2); EOS % 4.1 %; EOS ABS # 0.28 K/uL (0-0.5); HEMATOCRIT 40.2 % (42-52); HEMOGLOBIN 13.7 g/dL (14.0-18.0); IG# 0.02 K/uL (0.00-0.02); LYMPH % 10.9 %; LYMPH ABS # 0.74 K/uL (1.2-3.4); MEAN CELL VOLUME 101.8 fL (80-100); MEAN CORPUSCULAR HEMOGLOBIN 34.7 pg (25-34); MEAN CORPUSCULAR HGB CONC 34.1 g/dl (32-36); MEAN PLATELET VOLUME 10.1 fL (7.4-10.4); MONO % 8.4 %; MONO ABS # 0.57 K/uL (0.11-0.59); NEUT % 75.9 %; NEUT ABS # 5.13 K/uL (1.4-6.5); PLATELET COUNT 113 K/uL (130-400); RED CELL DISTRIBUTION WIDTH CV 13.8 % (11.5-14.5); RED CELL DISTRIBUTION WIDTH SD 51.9 fL (36.4-46.3); WHITE BLOOD COUNT 6.77 K/uL (4.8-10.8)
[2018-01-22 12:53] LABS: ALBUMIN 3.1 gm/dl (3.4-5.0); ALT/SGPT 100 U/L (12-78); AST/SGOT 93 U/L (15-37); BLOOD UREA NITROGEN 10 mg/dl (7-18); CALCIUM 8.4 mg/dl (8.5-10.1); CARBON DIOXIDE 32 mmol/L (21-32); CREATININE 1.33 mg/dl (0.60-1.40); GLUCOSE 97 mg/dl (70-99); POTASSIUM 3.5 mmol/L (3.5-5.1); SODIUM 131 mmol/L (136-145)
[2018-01-22 12:56] LABS: ALKALINE PHOSPHATASE 215 U/L (45-117); TOTAL PROTEIN 6.5 gm/dl (6.4-8.2)
== END | disposition home or self-care (01) ==
LOC: C.LABBFT 07:39
PROVIDERS: ATTEND Internal Medicine
DX: E55.9 Vitamin D deficiency, unspecified (principal)

== ENCOUNTER → 2018-01-29 | Outpatient (CLI) | payer BC ==
[2018-01-29 16:39] LABS: BASO % 1.3 %; BASO ABS # 0.07 K/uL (0-0.2); EOS % 4.5 %; EOS ABS # 0.24 K/uL (0-0.5); HEMOGLOBIN 13.9 g/dL (14.0-18.0); IG# 0.01 K/uL (0.00-0.02); LYMPH % 9.8 %; LYMPH ABS # 0.52 K/uL (1.2-3.4); MEAN CELL VOLUME 102.3 fL (80-100); MEAN CORPUSCULAR HEMOGLOBIN 35.5 pg (25-34); MEAN CORPUSCULAR HGB CONC 34.8 g/dl (32-36); MEAN PLATELET VOLUME 10.6 fL (7.4-10.4); MONO % 9.8 %; MONO ABS # 0.52 K/uL (0.11-0.59); NEUT % 74.4 %; NEUT ABS # 3.97 K/uL (1.4-6.5); PLATELET COUNT 112 K/uL (130-400); RED CELL DISTRIBUTION WIDTH CV 14.1 % (11.5-14.5); RED CELL DISTRIBUTION WIDTH SD 52.3 fL (36.4-46.3); WHITE BLOOD COUNT 5.33 K/uL (4.8-10.8)
[2018-01-29 16:47] LABS: ALBUMIN 3.2 gm/dl (3.4-5.0); ALT/SGPT 96 U/L (12-78); AST/SGOT 105 U/L (15-37); BLOOD UREA NITROGEN 18 mg/dl (7-18); CALCIUM 8.2 mg/dl (8.5-10.1); CARBON DIOXIDE 32 mmol/L (21-32); CREATININE 1.56 mg/dl (0.60-1.40); GLUCOSE 106 mg/dl (70-99); POTASSIUM 3.3 mmol/L (3.5-5.1); SODIUM 138 mmol/L (136-145)
[2018-01-29 16:50] LABS: ALKALINE PHOSPHATASE 222 U/L (45-117); TOTAL PROTEIN 6.6 gm/dl (6.4-8.2)
== END | disposition home or self-care (01) ==
LOC: C.LABBFT 12:10
PROVIDERS: ATTEND Physician Assistant Medical
DX: E87.1 Hypo-osmolality and hyponatremia (principal); D64.9 Anemia, unspecified

== ENCOUNTER → 2018-02-08 | Outpatient (CLI) | payer BC ==
--- NOTE | 2018-02-08 07:35 | DIAGNOSTIC IMAGING REPORT ---
BILIARY ULTRASOUND CLINICAL HISTORY: R79.89 Elevated LFTs COMPARISON STUDY: 04/27/2016 FINDINGS: There is mild hepatomegaly (23 cm). There are no focal hepatic masses. There is no intrahepatic biliary ductal dilatation. There is trace perihepatic fluid. The pancreas is obscured by overlying bowel. There is adenomyomatosis of the gallbladder. In addition at least one shadowing calculus is visualized. There is mild gallbladder wall thickening likely secondary to adenomyomatosis. There is no right-sided hydronephrosis. There is a 7 cm upper pole right renal cyst. The common bile duct measures 1 cm in maximal diameter. IMPRESSION: 1. Adenomyomatosis of the gallbladder. Cholelithiasis. 2. Hepatomegaly. Trace perihepatic fluid. 3. Upper pole right renal cyst 4. Nondiagnostic evaluation of the pancreas 5. Mild dilatation of the common bile duct which measures up to 1 cm in maximal diameter Electronically signed by: Juan Luis Aguilar M.D. 02/08/2018 7:34 AM Dictated Date/Time: 02/08/2018 7:29 AM
== END | disposition home or self-care (01) ==
LOC: C.ULTR 06:39
PROVIDERS: ATTEND Physician Assistant Medical
DX: D13.5 Benign neoplasm of extrahepatic bile ducts (principal); K80.80 Other cholelithiasis without obstruction; N28.1 Cyst of kidney, acquired

== ENCOUNTER → 2018-02-17 | Outpatient (CLI) | payer BC ==
[2018-02-17 12:26] LABS: BASO % 0.7 %; BASO ABS # 0.05 K/uL (0-0.2); EOS ABS # 0.41 K/uL (0-0.5); HEMATOCRIT 39.4 % (42-52); HEMOGLOBIN 13.5 g/dL (14.0-18.0); IG# 0.01 K/uL (0.00-0.02); LYMPH % 11.6 %; LYMPH ABS # 0.79 K/uL (1.2-3.4); MEAN CORPUSCULAR HEMOGLOBIN 34.6 pg (25-34); MEAN CORPUSCULAR HGB CONC 34.3 g/dl (32-36); MEAN PLATELET VOLUME 10.1 fL (7.4-10.4); MONO ABS # 0.68 K/uL (0.11-0.59); NEUT % 71.6 %; NEUT ABS # 4.87 K/uL (1.4-6.5); PLATELET COUNT 131 K/uL (130-400); RED CELL DISTRIBUTION WIDTH CV 14.5 % (11.5-14.5); RED CELL DISTRIBUTION WIDTH SD 53.3 fL (36.4-46.3); WHITE BLOOD COUNT 6.81 K/uL (4.8-10.8)
[2018-02-17 13:09] LABS: ALBUMIN 2.8 gm/dl (3.4-5.0); ALKALINE PHOSPHATASE 272 U/L (45-117); AST/SGOT 123 U/L (15-37); BLOOD UREA NITROGEN 16 mg/dl (7-18); CALCIUM 8.3 mg/dl (8.5-10.1); CARBON DIOXIDE 31 mmol/L (21-32); CREATININE 1.65 mg/dl (0.60-1.40); GLUCOSE 98 mg/dl (70-99); SODIUM 133 mmol/L (136-145); TOTAL PROTEIN 6.4 gm/dl (6.4-8.2)
[2018-02-17 13:12] LABS: ALT/SGPT 79 U/L (12-78)
== END | disposition home or self-care (01) ==
LOC: C.LABBFT 07:39
PROVIDERS: ATTEND Physician Assistant
DX: R79.89 Other specified abnormal findings of blood chemistry (principal)

== ENCOUNTER → 2018-02-17 | Outpatient (CLI) | payer BC ==
[~2018-02-17] MED LIST changes: +OPTIRAY 320 IV PRN
--- NOTE | 2018-02-17 15:50 | DIAGNOSTIC IMAGING REPORT ---
CT ABD/PELVIS IV AND ORAL CONT CLINICAL HISTORY: Common bile duct dilatation. Elevated LFTs. COMPARISON STUDY: CT scan dated 11/24/2017, biliary ultrasound dated 02/08/2018 TECHNIQUE: Following the IV administration of 93 mL of Optiray-320, CT scan of the abdomen and pelvis was performed from the lung bases to the proximal femurs. Images are reviewed in the axial, sagittal, and coronal planes. IV contrast was administered without complication. A dose lowering technique was utilized adhering to the principles of ALARA. CT DOSE: 810.67 mGy.cm FINDINGS: Lower chest: There is pulmonary emphysema. There are mild dependent atelectatic changes. Liver: No focal masses are visualized. There is perihepatic fluid present. There is a subtle nodular contour of the liver suggesting cirrhosis. Gallbladder: There is cholelithiasis. There is gallbladder wall thickening. The common bile duct measures 8 mm. Spleen: The spleen is enlarged measuring 17.6 cm. There is a small amount of perisplenic fluid. No splenic masses are evident. Pancreas: Unremarkable. Adrenal glands: Unremarkable. Kidneys: There is a 7.9 cm right renal cyst. Renal calcifications are likely vascular. Bowel: There are no transition zones to indicate bowel obstruction. There is colonic diverticulosis. There are no acute peridiverticular inflammatory changes. There is no evidence of acute appendicitis. There is minor distal small bowel wall edema which may be secondary to the patient's cirrhotic state. Peritoneum: There is low volume ascites. Vasculature: The abdominal aorta is normal in course and caliber. Adenopathy: None. Pelvic viscera: The bladder, and pelvic viscera are unremarkable. Skeletal structures: No destructive osseous lesions are seen. IMPRESSION: 1. Suspected liver cirrhosis with associated splenomegaly and low volume ascites 2. Cholelithiasis and mild gallbladder wall thickening 3. No evidence of bowel obstruction. No evidence of free air 4. No evidence of acute appendicitis. No evidence of acute diverticulitis 5. Minor distal small bowel wall thickening, a nonspecific finding which may be secondary to the patient's cirrhotic state Electronically signed by: Juan Luis Aguilar M.D. 02/17/2018 3:49 PM Dictated Date/Time: 02/17/2018 3:43 PM
== END | disposition home or self-care (01) ==
LOC: C.CTS 13:27
PROVIDERS: ATTEND Physician Assistant
DX: K83.8 Other specified diseases of biliary tract (principal); R79.89 Other specified abnormal findings of blood chemistry; K80.20 Calculus of gallbladder without cholecystitis without obstruction; R16.1 Splenomegaly, not elsewhere classified; R18.8 Other ascites

== ENCOUNTER 2018-02-22 19:22 | Inpatient (IN) | payer BC ==
[~2018-02-22] VITALS: Ht 188 cm; Wt 94.7 kg
[~2018-02-22 19:22] MED LIST changes: -OPTIRAY 320 IV PRN
[2018-02-22] MEDS ORDERED: ALBUT/IPRATROP 3MG/0.5MG NEB 3 ML VIAL INH STA (19:45)
[2018-02-22] MEDS ORDERED: SODIUM CHLORIDE 0.9% 1000ML 500 ML IV STA (19:45)
[2018-02-22] MEDS ORDERED: METHYLPREDNISOLONE 125 MG VIAL IV STA (19:45)
[2018-02-22] MEDS ORDERED: PIPERACILLIN/TAZOBACTAM 4.5 GM/100ML D5W IV STA (19:45)
[2018-02-22] MEDS ORDERED: ACETAMINOPHEN 325 MG TAB PO STA (19:45)
--- NOTE | 2018-02-22 19:55 | EMERGENCY ROOM VISIT NOTE ---
History Report prepared by Katieibuvaldo: Emma Wu Under the Supervision of: Dr. Wilner Snyder M.D. First contact with patient: 19:39 Chief Complaint: OTHER COMPLAINT Stated Complaint: FEVER,SHAKEY,O2 LEVEL LOW,DISORIENTED History of Present Illness The patient is a 62 year old male who presents to the Emergency Room with complaints of worsening weakness. He admits to a history of COPD and reports he wears Oxygen while he is at work and at home to sleep. His O2 was low today when he checked at home, and his states he has seemed "disoriented". He had a fever, so they brought the patient to the ED. The patient states he uses inhalers and nebulizers as needed. He last used Albuterol around 1700 today. He denies feeling short of breath in the ED, stating "I feel fine". He denies any urinary symptoms. He notes he is supposed to have his gallbladder removed soon, and also undergo a liver biopsy after his liver enzymes were found to be "wacky ". He does take daily Eliquis. Source of History: patient Onset: past few days Position: other (global) Timing: worsening Associated Symptoms: + fevers, No SOB, No urinary symptoms Review of Systems See HPI for pertinent positives & negatives. A total of 10 systems reviewed and were otherwise negative. Past Medical & Surgical Medical Problems: (1) Acute renal insufficiency (2) Acute respiratory failure with hypoxia (3) Atrial fibrillation with RVR (4) Bilateral lower leg cellulitis (5) CHF (congestive heart failure) (6) CHF exacerbation (7) COPD (chronic obstructive pulmonary disease) (8) Hyponatremia (9) PNA (pneumonia) Family History Cancer Heart disease Hypertension Social History Smoking Status: Former Smoker Drug Use: none Marital Status: Housing Status: lives with significant other Occupation Status: employed Current/Historical Medications Scheduled Acetazolamide (Acetazolamide), 250 MG PO QPM Amiodarone Hcl (Cordarone), 200 MG PO BID Apixaban (Eliquis), 5 MG PO BID Ergocalciferol (Vitamin D 78567 Unit), 50,000 UNITS PO WK Fluticasone Prop/Salmeterol (Advair Diskus 500/50 60 Dose), 1 PUFF INH BID Furosemide (Lasix), 40 MG PO BID Omeprazole (Prilosec), 40 MG PO BID Potassium Ext Rel (Klor-Con), 20 MEQ PO BID Simvastatin (Simvastatin), 40 MG PO QPM Scheduled PRN Ipratropium-Albuterol (Combivent Respimat), 1 PUFFS INH QID PRN for SOB/Wheezing Nitroglycerin (Nitrostat), 0.4 MG UT DIRECTED PRN for chest pain Allergies Coded Allergies: No Known Allergies (Unverified , 12/15/16) Physical Exam Vital Signs Date Time Temp Pulse Resp B/P (MAP) Pulse Ox O2 Delivery O2 Flow Rate FiO2 02/22/18 21:08 76 16 122/59 Room Air 4.0 Nasal Cannula 02/22/18 20:50 73 02/22/18 19:57 Nasal Cannula 02/22/18 19:36 Nasal Cannula 2.0 02/22/18 19:33 36.9 83 20 113/60 86 Room Air Physical Exam GENERAL: Patient is in no acute distress. HEENT: No acute trauma, normocephalic atraumatic, mucous membranes moist, no nasal congestion, no scleral icterus. NECK: No stridor, no adenopathy, no meningismus, trachea is midline. LUNGS: Occasional crackles bilaterally, no wheezing, no respiratory distress, equal breath sounds, moist cough noted. HEART: Without murmurs gallops or rubs, regular rate and rhythm. ABDOMEN: Soft, nontender, bowel sounds positive, no hernias, no peritonitis. EXTREMITIES: Mild bilateral pedal edema with chronic skin changes. No cyanosis, full range of motion of all the joints without pain or difficulty, no signs for acute trauma. NEUROLOGIC: Oriented x 3, no acute motor or sensory deficits, no focal weakness. SKIN: Very warm to the touch. No rash, no jaundice, no diaphoresis. Medical Decision & Procedures ER Provider Diagnostic Interpretation: Radiology results as stated below per my review and radiologist interpretation: CHEST ONE VIEW PORTABLE HISTORY: 62 years-old Male EVALUATE RESPIRATORY DISTRESS.DYSPNEA acute respiratory distress COMPARISON: Chest radiograph 12/29/2017 TECHNIQUE: Portable AP view of the chest FINDINGS: Cardiomediastinal and hilar silhouettes are within normal limits. Mild pulmonary vascular congestion without overt pulmonary edema. No pneumothorax or pleural effusion. Linear subsegmental left basilar atelectasis/scarring. Ill-defined opacities about the left midlung, new from prior. Bones of the chest appear grossly intact. IMPRESSION: 1. Ill-defined alveolar opacities about the left midlung are suspicious for developing pneumonia. 2. Subsegmental left basilar opacities suggest atelectasis or scarring. The above report was generated using voice recognition software. It may contain grammatical, syntax or spelling errors. Electronically signed by: Fan Benjamin M.D. 02/22/2018 8:24 PM Laboratory Results 02/22/18 20:07 Red Blood Count 4.06, Mean Corpuscular Volume 101.2, Mean Corpuscular Hemoglobin 35.5, Mean Corpuscular Hemoglobin Concent 35.0, Mean Platelet Volume 10.1, Neutrophils (%) (Auto) 84.4, Lymphocytes (%) (Auto) 4.1, Monocytes (%) ( Auto) 10.4, Eosinophils (%) (Auto) 0.7, Basophils (%) (Auto) 0.2, Neutrophils # (Auto) 10.58, Lymphocytes # (Auto) 0.51, Monocytes # (Auto) 1.31, Eosinophils # (Auto) 0.09, Basophils # (Auto) 0.03 02/22/18 20:07 Test 02/22/18 20:07 White Blood Count 12.55 K/uL (4.8-10.8) Red Blood Count 4.06 M/uL (4.7-6.1) Hemoglobin 14.4 g/dL (14.0-18.0) Hematocrit 41.1 % (42-52) Mean Corpuscular Volume 101.2 fL (80-100) Mean Corpuscular Hemoglobin 35.5 pg (25-34) Mean Corpuscular Hemoglobin Concent 35.0 g/dl (32-36) Platelet Count 118 K/uL (130-400) Mean Platelet Volume 10.1 fL (7.4-10.4) Neutrophils (%) (Auto) 84.4 % Lymphocytes (%) (Auto) 4.1 % Monocytes (%) (Auto) 10.4 % Eosinophils (%) (Auto) 0.7 % Basophils (%) (Auto) 0.2 % Neutrophils # (Auto) 10.58 K/uL (1.4-6.5) Lymphocytes # (Auto) 0.51 K/uL (1.2-3.4) Monocytes # (Auto) 1.31 K/uL (0.11-0.59) Eosinophils # (Auto) 0.09 K/uL (0-0.5) Basophils # (Auto) 0.03 K/uL (0-0.2) RDW Standard Deviation 52.1 fL (36.4-46.3) RDW Coefficient of Variation 14.1 % (11.5-14.5) Immature Granulocyte % (Auto) 0.2 % Immature Granulocyte # (Auto) 0.03 K/uL (0.00-0.02) Prothrombin Time 13.4 SECONDS (9.0-12.0) Prothromb Time International Ratio 1.3 (0.9-1.1) Activated Partial Thromboplast Time 32.7 SECONDS (21.0-31.0) Partial Thromboplastin Ratio 1.3 Anion Gap 6.0 mmol/L (3-11) Est Creatinine Clear Calc Drug Dose 43.2 ml/min Estimated GFR () 47.0 Estimated GFR (Non- 40.5 BUN/Creatinine Ratio 12.7 (10-20) Lactic Acid Level 1.4 mmol/L (0.4-2.0) Calcium Level 7.7 mg/dl (8.5-10.1) Magnesium Level 2.2 mg/dl (1.8-2.4) Total Bilirubin 2.1 mg/dl (0.2-1) Aspartate Amino Transf (AST/SGOT) 124 U/L (15-37) Alanine Aminotransferase (ALT/SGPT) 89 U/L (12-78) Alkaline Phosphatase 268 U/L (45-117) Troponin I < 0.015 ng/ml (0-0.045) Pro-B-Type Natriuretic Peptide 1084 pg/ml (0-900) Total Protein 6.6 gm/dl (6.4-8.2) Albumin 2.7 gm/dl (3.4-5.0) Globulin 3.9 gm/dl (2.5-4.0) Albumin/Globulin Ratio 0.7 (0.9-2) Laboratory results reviewed by me. Medications Administered Medications (Trade) Dose Ordered Sig/Frank[place] Route Start Time Stop Time Status Last Admin Dose Admin Sodium Chloride 500 ml @ 999 mls/hr Q31M STAT IV 02/22/18 19:45 02/22/18 20:15 DC 5/21/18 20:16 999 MLS/HR Methylprednisolone Sodium Succinate (Solu-Medrol IV) 125 mg NOW STAT IV 02/22/18 19:45 02/22/18 19:50 DC 02/22/18 20:16 125 MG Piperacillin Sod/ Tazobactam Sod (Zosyn Iv) 4.5 gm NOW STAT IV 02/22/18 19:45 02/22/18 19:50 DC 02/22/18 20:29 4.5 GM Acetaminophen (Tylenol Tab) 650 mg NOW STAT PO 02/22/18 19:45 02/22/18 19:50 DC 02/22/18 20:17 650 MG Potassium Chloride (KCL 10 mEq / WTR) 10 meq NOW STAT IV 02/22/18 20:49 02/22/18 20:50 DC 02/22/18 21:25 10 MEQ Sodium Chloride 250 ml @ 999 mls/hr Q16M STAT IV 02/22/18 20:49 02/22/18 21:04 DC 02/22/18 21:25 999 MLS/HR ECG Per My Interpretation Indication: weakness Rate (beats per minute): 77 Rhythm: sinus rhythm Findings: 1st degree AV block, other (Diffuse nonspecific ST changes, baseline artifact, no ST elevation, possible old inferior infarct) ED Course 1939: The patient was evaluated in room C12. A complete history and physical exam was performed. 1944: Tylenol 650 mg PO, Zosyn 4.5 gm IV, Solu-Medrol 125 mg IV, NSS 500 ml @ 999 mls/hr IV. 2048: NSS 350 ml @ 999 mls/hr IV, Potassium Chloride 10 meq IV. 2049: I reevaluated the patient. He is resting comfortably. I discussed my recommendation he remain in the hospital for further evaluation and management and he verbalized complete understanding and agreement. 2108: I discussed the patients case with Dr. Knight, [facility] Hospitalist. The patient will be further evaluated. Medical Decision The differential diagnoses considered include pneumonia, bronchitis, sepsis, bacteremia, UTI, electrolyte imbalance, anemia, exacerbation of COPD and dehydration. There is a mild leukocytosis, this would be consistent with infection. No worrisome anemia. Renal panel testing shows a slight elevation to the creatinine, likely consistent with dehydration. Potassium was low at 2.7. The patient's liver enzymes were elevated but this has been an ongoing issue, he was already aware. There was a very subtle coagulopathy, likely consistent with his Eliquis use. Lactic acid level was not elevated making sepsis less likely. Blood cultures are pending. EKG showed a sinus rhythm with a first- degree AV block, no acute ischemic change. Cardiac enzyme testing 1 is not consistent with acute cardiac injury. Chest film shows what is possibly the start of a pneumonia on the left. No pneumothorax or CHF. The patient received a DuoNeb. He was given IV Solu-Medrol, IV saline, IV potassium. He was given IV Zosyn as antibiotic coverage. The patient requires a hospital stay. He has COPD, he presents hypoxic and short of breath with a workup suggesting a developing pneumonia. I spoke to the patient and case management. The on-call hospitalist was consulted. Medication Reconcilliation Current Medication List: was personally reviewed by me Blood Pressure Screening Patient's blood pressure: Normal blood pressure Blood pressure disposition: Did not require urgent referral Consults Time Called: 2104 Consulting Physician: Dr. Knight, [facility] Hospitalist Returned Call: 2108 I discussed the patients case with Dr. Knight, [facility] Hospitalist. The patient will be further evaluated. Impression Primary Impression: Hypoxia Additional Impressions: Pneumonia Hypokalemia Elevated liver enzymes Dehydration Scribe Attestation The scribe's documentation has been prepared under my direction and personally reviewed by me in its entirety. I confirm that the note above accurately reflects all work, treatment, procedures, and medical decision making performed by me. Departure Information Dispostion Being Evaluated By Hospitalist Referrals Luis Azevedo M.D. (PCP) Patient Instructions My [facility] Problem Qualifiers
[2018-02-22 20:24] LABS: BASO % 0.2 %; BASO ABS # 0.03 K/uL (0-0.2); EOS % 0.7 %; EOS ABS # 0.09 K/uL (0-0.5); HEMATOCRIT 41.1 % (42-52); HEMOGLOBIN 14.4 g/dL (14.0-18.0); IG# 0.03 K/uL (0.00-0.02); LYMPH % 4.1 %; LYMPH ABS # 0.51 K/uL (1.2-3.4); MEAN CELL VOLUME 101.2 fL (80-100); MEAN CORPUSCULAR HEMOGLOBIN 35.5 pg (25-34); MEAN PLATELET VOLUME 10.1 fL (7.4-10.4); MONO % 10.4 %; MONO ABS # 1.31 K/uL (0.11-0.59); NEUT % 84.4 %; NEUT ABS # 10.58 K/uL (1.4-6.5); PLATELET COUNT 118 K/uL (130-400); RED CELL DISTRIBUTION WIDTH CV 14.1 % (11.5-14.5); RED CELL DISTRIBUTION WIDTH SD 52.1 fL (36.4-46.3); WHITE BLOOD COUNT 12.55 K/uL (4.8-10.8)
--- NOTE | 2018-02-22 20:25 | DIAGNOSTIC IMAGING REPORT ---
CHEST ONE VIEW PORTABLE HISTORY: 62 years-old Male EVALUATE RESPIRATORY DISTRESS.DYSPNEA acute respiratory distress COMPARISON: Chest radiograph 12/29/2017 TECHNIQUE: Portable AP view of the chest FINDINGS: Cardiomediastinal and hilar silhouettes are within normal limits. Mild pulmonary vascular congestion without overt pulmonary edema. No pneumothorax or pleural effusion. Linear subsegmental left basilar atelectasis/scarring. Ill-defined opacities about the left midlung, new from prior. Bones of the chest appear grossly intact. IMPRESSION: 1. Ill-defined alveolar opacities about the left midlung are suspicious for developing pneumonia. 2. Subsegmental left basilar opacities suggest atelectasis or scarring. The above report was generated using voice recognition software. It may contain grammatical, syntax or spelling errors. Electronically signed by: Fan Benjamin M.D. 02/22/2018 8:24 PM Dictated Date/Time: 02/22/2018 8:22 PM
[2018-02-22 20:31] LABS: INR 1.3 (0.9-1.1); PTT PATIENT 32.7 SECONDS (21.0-31.0)
[2018-02-22 20:47] LABS: ALBUMIN 2.7 gm/dl (3.4-5.0); ALKALINE PHOSPHATASE 268 U/L (45-117); ALT/SGPT 89 U/L (12-78); AST/SGOT 124 U/L (15-37); BLOOD UREA NITROGEN 22 mg/dl (7-18); CALCIUM 7.7 mg/dl (8.5-10.1); CARBON DIOXIDE 35 mmol/L (21-32); CREATININE 1.75 mg/dl (0.60-1.40); GLUCOSE 96 mg/dl (70-99); POTASSIUM 2.7 mmol/L (3.5-5.1); SODIUM 135 mmol/L (136-145); TOTAL PROTEIN 6.6 gm/dl (6.4-8.2)
[2018-02-22] MEDS ORDERED: POTASSIUM CHLORIDE 10 MEQ / 100ML WTR IV STA (20:49)
[2018-02-22] MEDS ORDERED: SODIUM CHLORIDE 0.9% 250ML 250 ML IV STA (20:49)
[2018-02-22] MEDS ORDERED: DMX250 PO (21:05)
[2018-02-22] MEDS ORDERED: POTA-639 PO (21:05)
[2018-02-22] MEDS ORDERED: ERGO500011 PO (21:05)
[2018-02-22] MEDS ORDERED: ZCR40 PO (21:05)
--- NOTE | 2018-02-22 21:54 | History and Physical ---
History & Physical Date & Time of Service: February 22, 2018 at 21:36 Chief Complaint: Fever,Shakey,O2 Level Low,Disoriented Primary Care Physician: Luis Azevedo M.D. History of Present Illness Source: patient, family () Pt is a 62M with a PMHx of advanced COPD, PAF, diastolic CHF that presents with fevers and SOB x 1 day. He has an increased oxygen requirement to 4L /min at rest from his baseline of not being on oxygen. In the ER patient was given Methylprednisone, IV potassium and Zosyn. Patient measured his oxygen saturation yesterday evening and was around 82%. He also measured his temp and got 101.9F. Pt states that his LE might also be a little more edematous. Denies chest pain, denies vomiting, denies diarrhea, denies wheezing, states he doesn't even have a significant cough. PMHX: Elevated LFTs currently being worked up by Gastro, also possible future gallbladder removal. 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 Past Medical/Surgical History Medical Problems: (1) Acute renal failure (2) Acute renal insufficiency (3) Acute respiratory failure (4) Acute respiratory failure with hypoxia (5) Altered mental status (6) Atrial fibrillation with RVR (7) Bilateral lower leg cellulitis (8) Chest pressure (9) CHF (congestive heart failure) (10) CHF (congestive heart failure) (11) CHF exacerbation (12) COPD (chronic obstructive pulmonary disease) (13) COPD (chronic obstructive pulmonary disease) (14) COPD exacerbation (15) Dehydration (16) Febrile illness (17) Hypokalemia (18) Hyponatremia (19) Hypoxia (20) Lower extremity edema (21) pna (22) PNA (pneumonia) (23) Ruptured varicosity (24) Sepsis (25) SIRS (systemic inflammatory response syndrome) (26) SOB (shortness of breath) (27) Symptomatic bradycardia Family History Cancer Heart disease Hypertension Social History Smoking Status: Former Smoker Drug Use: none Marital Status: Housing status: lives with significant other Occupational Status: employed Immunizations History of Influenza Vaccine: Yes History of Tetanus Vaccine?: Yes History of Pneumococcal: Yes History of Hepatitis B Vaccine: No Allergies Coded Allergies: No Known Allergies (Unverified , 12/15/16) Home Medications Scheduled Acetazolamide (Acetazolamide), 250 MG PO QPM Amiodarone Hcl (Cordarone), 200 MG PO BID Apixaban (Eliquis), 5 MG PO BID Ergocalciferol (Vitamin D 28593 Unit), 50,000 UNITS PO WK Fluticasone Prop/Salmeterol (Advair Diskus 500/50 60 Dose), 1 PUFF INH BID Furosemide (Lasix), 40 MG PO BID Omeprazole (Prilosec), 40 MG PO BID Potassium Ext Rel (Klor-Con), 20 MEQ PO BID Simvastatin (Simvastatin), 40 MG PO QPM Scheduled PRN Ipratropium-Albuterol (Combivent Respimat), 1 PUFFS INH QID PRN for SOB/Wheezing Nitroglycerin (Nitrostat), 0.4 MG UT DIRECTED PRN for chest pain Review of Systems Constitutional: + fever, No chills Abdomen: No pain, No nausea, No vomiting, No diarrhea, No constipation Musculoskeletal: No joint pain Genitourinary - Male: No hematuria Neurologic: No memory loss Psychiatric: No depression symptoms Integumentary: + color change (pt is on eliquis and he bruises "when the wind blows") Physical Exam Vital Signs Date Time Temp Pulse Resp B/P (MAP) Pulse Ox O2 Delivery O2 Flow Rate FiO2 02/22/18 21:08 76 16 122/59 Room Air 4.0 Nasal Cannula 02/22/18 20:50 73 02/22/18 19:57 Nasal Cannula 02/22/18 19:36 Nasal Cannula 2.0 02/22/18 19:33 36.9 83 20 113/60 86 Room Air General Appearance: WD/WN, no apparent distress Head: normocephalic, atraumatic Eyes: normal inspection ENT: normal ENT inspection Neck: supple, no adenopathy Respiratory/Chest: chest non-tender, lungs clear, normal breath sounds, no respiratory distress, no accessory muscle use, + pertinent finding (pt is earing 4LNC) Cardiovascular: regular rate, rhythm, no gallop, no JVD, no murmur, normal peripheral pulses Abdomen/GI: normal bowel sounds, non tender, soft, no organomegaly, no pulsatile mass Back: normal inspection, no CVA tenderness Extremities/Musculoskelatal: normal inspection, no calf tenderness (2+ pitting edema in the LE bilaterally), normal range of motion, + pedal edema (2) Neurologic/Psych: wheel truing machine tender II-XII nml as tested, no motor/sensory deficits, alert, normal mood/affect, normal reflexes, oriented x 3 Skin: + pertinent finding (ecchymosis over the UE and LE bilaterally, evidence of venous status in the LE bilaterally. ) Diagnostics Laboratory Results Results Past 24 Hours Test 02/22/18 20:07 Range/Units White Blood Count 12.55 4.8-10.8 K/uL Red Blood Count 4.06 4.7-6.1 M/uL Hemoglobin 14.4 14.0-18.0 g/dL Hematocrit 41.1 42-52 % Mean Corpuscular Volume 101.2 80-100 fL Mean Corpuscular Hemoglobin 35.5 25-34 pg Mean Corpuscular Hemoglobin Concent 35.0 32-36 g/dl Platelet Count 118 130-400 K/uL Mean Platelet Volume 10.1 7.4-10.4 fL Neutrophils (%) (Auto) 84.4 % Lymphocytes (%) (Auto) 4.1 % Monocytes (%) (Auto) 10.4 % Eosinophils (%) (Auto) 0.7 % Basophils (%) (Auto) 0.2 % Neutrophils # (Auto) 10.58 1.4-6.5 K/uL Lymphocytes # (Auto) 0.51 1.2-3.4 K/uL Monocytes # (Auto) 1.31 0.11-0.59 K/uL Eosinophils # (Auto) 0.09 0-0.5 K/uL Basophils # (Auto) 0.03 0-0.2 K/uL RDW Standard Deviation 52.1 36.4-46.3 fL RDW Coefficient of Variation 14.1 11.5-14.5 % Immature Granulocyte % (Auto) 0.2 % Immature Granulocyte # (Auto) 0.03 0.00-0.02 K/uL Prothrombin Time 13.4 9.0-12.0 SECONDS Prothromb Time International Ratio 1.3 0.9-1.1 Activated Partial Thromboplast Time 32.7 21.0-31.0 SECONDS Partial Thromboplastin Ratio 1.3 Sodium Level 135 136-145 mmol/L Potassium Level 2.7 3.5-5.1 mmol/L Chloride Level 94 98-107 mmol/L Carbon Dioxide Level 35 21-32 mmol/L Anion Gap 6.0 3-11 mmol/L Blood Urea Nitrogen 22 7-18 mg/dl Creatinine 1.75 0.60-1.40 mg/dl Est Creatinine Clear Calc Drug Dose 43.2 ml/min Estimated GFR () 47.0 Estimated GFR (Non- 40.5 BUN/Creatinine Ratio 12.7 10-20 Random Glucose 96 70-99 mg/dl Lactic Acid Level 1.4 0.4-2.0 mmol/L Calcium Level 7.7 8.5-10.1 mg/dl Magnesium Level 2.2 1.8-2.4 mg/dl Total Bilirubin 2.1 0.2-1 mg/dl Aspartate Amino Transf (AST/SGOT) 124 15-37 U/L Alanine Aminotransferase (ALT/SGPT) 89 12-78 U/L Alkaline Phosphatase 268 45-117 U/L Troponin I < 0.015 0-0.045 ng/ml Total Protein 6.6 6.4-8.2 gm/dl Albumin 2.7 3.4-5.0 gm/dl Globulin 3.9 2.5-4.0 gm/dl Albumin/Globulin Ratio 0.7 0.9-2 Microbiology Results 02/22/18 Blood Culture, Received Pending 02/22/18 Blood Culture, Received Pending Diagnostic Radiology CHEST ONE VIEW PORTABLE HISTORY: 62 years-old Male EVALUATE RESPIRATORY DISTRESS.DYSPNEA acute respiratory distress COMPARISON: Chest radiograph 12/29/2017 TECHNIQUE: Portable AP view of the chest FINDINGS: Cardiomediastinal and hilar silhouettes are within normal limits. Mild pulmonary vascular congestion without overt pulmonary edema. No pneumothorax or pleural effusion. Linear subsegmental left basilar atelectasis/scarring. Ill-defined opacities about the left midlung, new from prior. Bones of the chest appear grossly intact. IMPRESSION: 1. Ill-defined alveolar opacities about the left midlung are suspicious for developing pneumonia. 2. Subsegmental left basilar opacities suggest atelectasis or scarring. Impression Assessment and Plan 62M with a PMHx of COPD, PAF, elevated LFTs p/w SOB and fevers of one day duration. X-ray is suggestion of Pneumonia. Starting patient on Zosyn. Pneumonia, Left Midlung Afebrile, Xray suggests pneumonia. Elevated WBC count, blood culture pending, Procalcitonin pending. Increased oxygen requirement. Wean O2 as needed. Zosyn Day #1. Pt has prolonged QT. Has tolerated Cefdinir and Doxy in the past for pneumonia. Will test for Lyme - pt was previously IGM positive in 2014, states he was never treated for it. COPD Given 125mg Prednisone in the ER. c/w Acetazolamide 250 MG PO QPM c/w Advair Diskus 500/50 60 Dose 1 PUFF INH BID c/w Combivent 1 PUFFS INH QID PRN for SOB/Wheezing DUONEBS QID scheduled + PRN Start on PO Prednisone 50mg QAM tomorrow. HLD c/w home Simvastatin. Paroxysmal A. Fib. Currently in Sinus rhythm. c/w home Amiodarone and Eliquis Elevated LFTs 2/2 Chronic Alcoholism vs Unknown Currently being worked up by GI outpatient. Equivocal Hep C Ab in chart - those were determined to be negative. Will monitor with Daily CMPs. ETOH Abuse 2-3 drinks per day. Patient stated that he has never had withdrawal symptoms in past hospitalizations. Diastolic CHF Pt noticed worsening LE edema, but measures his weights daily and those haven't increased or decreased. Last Echo was in 2017: Mildly dilated left ventricle with hyperdynamic systolic function. EF > 70%. c/w Lasix 40mg BID. Daily Weights Elevated Creatine Creatinine in ER is at 1.65, this may be the patient's baseline on his current Lasix dose. He states he drinks a lot of water. Will monitor creatinine. DVT Proph: Eliquis as above. Heart Healthy Diet Social - No concerns. Dispo - Admit, Med Surg Full Code Resident Physician Supervision Note: I was present with Dr. Abreu during the history and exam. I discussed the case with the resident and agree with the findings and plan as documented in the note. Any exceptions or clarifications are listed here: 62 y/o M Hx COPD, PAF, diastolic CHF - presenting with SOB and a fever - Hypoxic and febrile on arrival to ER OE AAO x 3 S1,2 R poor b/l air movement without clear crackles or wheezing NT, ND (+) edema No deficits P: Placed on Zosyn in ER, however, we will need to cover for atypicals and he does not currently require HCAP coverage We will treat for COPD exacerbation considering his hypoxia Cont Eliquis and Amio for AF Cont Lasix for CHF Documented By: Bala Cantu Resuscitation Status VTE Prophylaxis Will order VTE Prophylaxis: Yes Resident Involvement: Resident Care Provided Care Provided: Adult Hospital Medicine
[2018-02-22] MEDS ORDERED: ONDANSETRON INJ 2 MG/ML 2 ML VIAL IV PRN (22:00)
[2018-02-22] MEDS ORDERED: MAGNESIUM HYDROXIDE SUSP 30 ML UDC PO PRN (22:00)
[2018-02-22] MEDS ORDERED: ZOLPIDEM TARTRATE 5 MG TAB PO PRN (22:00)
[2018-02-22] MEDS ORDERED: ACETAMINOPHEN 325 MG TAB PO PRN (22:00)
[2018-02-22] MEDS ORDERED: ALUMINUM/MAGNESIUM/SIMETH (MAALOX MAX) 30 ML UDC PO PRN (22:00)
[2018-02-22] MEDS ORDERED: IPRATROPIUM BROMIDE/ALBUTEROL respimat INH INH PRN (22:15)
[2018-02-22] MEDS ORDERED: PIPERACILL/TAZOBAC CONSULT ACTIVE PRN (22:15)
[2018-02-22] MEDS ORDERED: POLYETHYLENE (MIRALAX) 17 GM PACK PO PRN (22:15)
[2018-02-23] VITALS (7 sets, daily range): BP systolic 112–134; BP diastolic 60–65; PULSE 60–71; TEMP 36.4; O2SAT 94–98; Ht 188 cm; Wt 94.7 kg
[2018-02-23] MEDS ORDERED: PIPERACILL/TAZOBAC IV 3.375 GM in DEXTROSE 5% 100ML 100 ML IV SCH (02:00)
[2018-02-23] MEDS: DOXYCYCLINE IV 100 MG in DEXTROSE 5% 100ML 100 ML IV SCH ×2 (02:25→13:26)
[2018-02-23 06:04] LABS: INR 1.3 (0.9-1.1)
[2018-02-23 06:36] LABS: ALBUMIN 2.3 gm/dl (3.4-5.0); CALCIUM 7.5 mg/dl (8.5-10.1); CREATININE 1.6 mg/dl (0.60-1.40); POTASSIUM 2.7 mmol/L (3.5-5.1); TOTAL PROTEIN 5.7 gm/dl (6.4-8.2)
[2018-02-23] MEDS: ALBUT/IPRATROP 3MG/0.5MG NEB 3 ML VIAL INH SCH ×3 (06:58→15:09)
[2018-02-23] MEDS: POTASSIUM CHLR 10 MEQ / WTR 100 ML IV SCH ×4 (08:18→11:32)
[2018-02-23] MEDS: METHYLPREDNISOLONE IV 60 MG in SYRINGE 0 ML IV SCH ×2 (08:18→19:44)
[2018-02-23] MEDS: LACTOBACILLUS ACIDOPHILUS 1 GM PACK PO SCH ×3 (08:19→16:34)
[2018-02-23] MEDS: FUROSEMIDE 40 MG TAB PO SCH ×2 (08:19→16:34)
[2018-02-23] MEDS: FLUTICASONE/SALMETEROL (ADVAIR) 500/50 INH 14 PUFF INH SCH ×2 (08:19→19:44)
[2018-02-23] MEDS: PANTOprazole SOD 40 MG TAB PO SCH ×2 (08:20→19:46)
[2018-02-23] MEDS: POTASSIUM CHLORIDE 20 MEQ TABCR PO SCH ×2 (08:20→19:46)
[2018-02-23] MEDS: APIXABAN 2.5 MG TAB PO SCH ×2 (08:21→19:45)
[2018-02-23] MEDS: AMIODARONE 200 MG TAB PO SCH ×2 (08:21→19:46)
--- NOTE | 2018-02-23 09:00 | Family Medicine Progress Note ---
Progress Note Date of Service February 23, 2018. Subjective Pt evaluation today including: conversation w/ patient, physical exam, chart review, lab review Pain: None Voiding: no voiding problems Today notes that he feels a little better No new issues since being admitted. No nursing concerns Patient states he does not like nebulizers. Feels it makes his COPD worse. Prefers to try Combivent Eating, drinking and voiding well. Additional Comments: A 10 point review of systems was negative unless stated above. Medications Current Inpatient Medications Medications (Trade) Dose Ordered Sig/Frank[place] Route Start Time Stop Time Status Last Admin Dose Admin Acetaminophen (Tylenol Tab) 650 mg Q4H PRN PO 02/22/18 22:00 03/24/18 21:59 Al Hydrox/Mg Hydrox/Simethicone (Maalox Max Susp) 15 ml Q4H PRN PO 02/22/18 22:00 03/24/18 21:59 Magnesium Hydroxide (Milk Of Magnesia Susp) 30 ml Q6H PRN PO 02/22/18 22:00 03/24/18 21:59 Polyethylene (Miralax Powder Packet) 17 gm DAILY PRN PO 02/22/18 22:15 03/24/18 22:14 Zolpidem Tartrate (Ambien Tab) 5 mg HSZ PRN PO 02/22/18 22:00 03/24/18 21:59 Ondansetron HCl (Zofran Inj) 4 mg Q6H PRN IV 02/22/18 22:00 03/24/18 21:59 Acetazolamide (Diamox Tab) 250 mg QPM PO 02/23/18 21:00 03/25/18 20:59 Amiodarone HCl (Cordarone Tab) 200 mg BID PO 02/23/18 08:00 03/25/18 08:59 02/23/18 08:21 200 MG Salmeterol Xinafoate/ Fluticasone (Advair Diskus 500/50 Inh) 1 puff BID INH 02/23/18 08:00 03/25/18 08:59 02/23/18 08:19 1 PUFF Furosemide (Lasix Tab) 40 mg BID17 PO 02/23/18 09:00 03/25/18 08:59 02/23/18 08:19 40 MG Albuterol/ Ipratropium (Combivent Respimat Inh) 1 puffs QID PRN INH 02/22/18 22:15 03/24/18 22:14 Potassium Chloride (Klor-Con Tab) 20 meq BID PO 02/23/18 08:00 03/25/18 08:59 02/23/18 08:20 20 MEQ Simvastatin (Zocor Tab) 40 mg QPM PO 02/23/18 21:00 03/25/18 20:59 Apixaban (Eliquis Tab) 5 mg BID PO 02/23/18 08:00 03/25/18 08:59 02/23/18 08:21 5 MG Pantoprazole Sodium (Protonix Tab) 40 mg BID PO 02/23/18 08:00 03/25/18 08:59 02/23/18 08:20 40 MG Albuterol/ Ipratropium (Duoneb) 3 ml QIDR INH 02/23/18 08:00 03/25/18 07:59 02/23/18 06:58 3 ML Doxycycline Hyclate 100 mg/ Dextrose 110 ml @ 50 mls/hr Q12H IV 02/23/18 02:00 03/02/18 01:59 02/23/18 02:25 50 MLS/HR Lactobacillus Acidophilus (Lactinex Granules Pack) 1 gm TIDM PO 02/23/18 08:00 02/26/18 07:59 02/23/18 08:19 1 GM Methylprednisolone Sodium Succinate 60 mg/Syringe 0.96 ml @ 1.5 mls/min BID IV 02/23/18 08:00 03/25/18 07:59 02/23/18 08:18 1.5 MLS/MIN Potassium Chloride 100 ml @ 100 mls/hr Q1H IV 02/23/18 08:00 02/23/18 11:59 02/23/18 09:23 100 MLS/HR Albuterol/ Ipratropium (Combivent Respimat Inh) 1 puffs QID INH 02/23/18 09:45 03/25/18 09:44 02/23/18 09:13 1 PUFFS Objective Vital Signs Date Time Temp Pulse Resp B/P (MAP) Pulse Ox O2 Delivery O2 Flow Rate FiO2 02/23/18 07:35 36.4 60 16 121/63 (82) 94 Nasal Cannula 2.5 02/23/18 06:58 60 16 96 Nasal Cannula 4.0 02/23/18 02:00 95 Nasal Cannula 4.0 02/23/18 00:08 36.4 71 20 112/60 Nasal Cannula 4.0 02/22/18 22:52 71 21 144/71 92 Nasal Cannula 3.5 02/22/18 21:08 76 16 122/59 Room Air 4.0 Nasal Cannula 02/22/18 20:50 73 02/22/18 19:57 Nasal Cannula 02/22/18 19:36 Nasal Cannula 2.0 02/22/18 19:33 36.9 83 20 113/60 86 Room Air Physical Exam General Appearance: WD/WN, no apparent distress Eyes: normal inspection, EOMI ENT: hearing grossly normal, pharynx normal Neck: supple, no adenopathy, no JVD Respiratory/Chest: no respiratory distress, + pertinent finding (slight coarse throughout lung wayne, L > R; mild wheezing) Cardiovascular: no gallop, no murmur Abdomen: normal bowel sounds, non tender, soft Extremities: non-tender, no pedal edema Neurologic/Psychiatric: alert, normal mood/affect, oriented x 3 Skin: normal color, warm/dry, no rash Lymphatic: no adenopathy Laboratory Results Last 24 Hours Test 02/22/18 20:07 02/23/18 05:23 White Blood Count 12.55 K/uL Red Blood Count 4.06 M/uL Hemoglobin 14.4 g/dL Hematocrit 41.1 % Mean Corpuscular Volume 101.2 fL Mean Corpuscular Hemoglobin 35.5 pg Mean Corpuscular Hemoglobin Concent 35.0 g/dl Platelet Count 118 K/uL Mean Platelet Volume 10.1 fL Neutrophils (%) (Auto) 84.4 % Lymphocytes (%) (Auto) 4.1 % Monocytes (%) (Auto) 10.4 % Eosinophils (%) (Auto) 0.7 % Basophils (%) (Auto) 0.2 % Neutrophils # (Auto) 10.58 K/uL Lymphocytes # (Auto) 0.51 K/uL Monocytes # (Auto) 1.31 K/uL Eosinophils # (Auto) 0.09 K/uL Basophils # (Auto) 0.03 K/uL RDW Standard Deviation 52.1 fL RDW Coefficient of Variation 14.1 % Immature Granulocyte % (Auto) 0.2 % Immature Granulocyte # (Auto) 0.03 K/uL Prothrombin Time 13.4 SECONDS 13.8 SECONDS Prothromb Time International Ratio 1.3 1.3 Activated Partial Thromboplast Time 32.7 SECONDS Partial Thromboplastin Ratio 1.3 Sodium Level 135 mmol/L 136 mmol/L Potassium Level 2.7 mmol/L 2.7 mmol/L Chloride Level 94 mmol/L 98 mmol/L Carbon Dioxide Level 35 mmol/L 31 mmol/L Anion Gap 6.0 mmol/L 7.0 mmol/L Blood Urea Nitrogen 22 mg/dl 24 mg/dl Creatinine 1.75 mg/dl 1.60 mg/dl Est Creatinine Clear Calc Drug Dose 43.2 ml/min 55.0 ml/min Estimated GFR () 47.0 52.4 Estimated GFR (Non- 40.5 45.2 BUN/Creatinine Ratio 12.7 15.3 Random Glucose 96 mg/dl 201 mg/dl Lactic Acid Level 1.4 mmol/L Calcium Level 7.7 mg/dl 7.5 mg/dl Magnesium Level 2.2 mg/dl Total Bilirubin 2.1 mg/dl 1.6 mg/dl Aspartate Amino Transf (AST/SGOT) 124 U/L 90 U/L Alanine Aminotransferase (ALT/SGPT) 89 U/L 72 U/L Alkaline Phosphatase 268 U/L 212 U/L Troponin I < 0.015 ng/ml Pro-B-Type Natriuretic Peptide 1084 pg/ml Total Protein 6.6 gm/dl 5.7 gm/dl Albumin 2.7 gm/dl 2.3 gm/dl Globulin 3.9 gm/dl 3.4 gm/dl Albumin/Globulin Ratio 0.7 0.7 C-Reactive Protein 4.88 mg/dl Lyme Disease IgG Antibody NEG Lyme Disease IgM Antibody NEG Assessment and Plan 62M with a PMHx of COPD, paroxysmal atrial fibrillation, transaminitis who presents for treatment for community-acquired pneumonia. Our plan for him is as follows: - Community Acquired Pneumonia / COPD Exacerbation: Patient is currently on Doxycycline and Rocephin. Patient is on Solumedrol IV 60 BID. Patient declining nebulizers so I will place him on Combivent QID. Continue home Advair inhalers. Continue Acetazolamide Patients baseline O2 needs are 2L at night. Patient currently requiring 4 L by nasal cannula. We will wean as tolerated. Patient will require outpatient repeat CXR in 4-6 weeks. - Prolonged QTc: 588 on admission. Will repeat EKG in AM. Quinolone and macrolide therapy contra-indicated due to prolonged QTc. - Hypokalemia: 2.7 on arrival. Given cardiac co-morbidities, goal is at least 4.0. 40 mEq IV KCl today and re-assess with AM labs. - Paroxysmal Atrial Fibrillation: Patient is currently rate controlled. Continue home dose of Amiodarone. Anticoagulation with Eliquis, per home dose. - Chronic Diastolic CHF: Clinically euvolemic. Continue PO Lasix. Daily weight and I/Os. AHA diet. - Transaminitis: Per history has had negative Hep C screening in the past. Likely 2/2 alcohol use (2-3 units nightly). Advised alcohol cessation. Avoid NSAIDs and Tylenol. Trend CMP daily - History of EtOH use: Denies history of abuse. Last drink 4 days ago. Denies ssx of withdrawal. Continue to monitor, can place on AWSS at risk protocol if needed - Hyperlipidemia: Continue Simvastatin - CKD 3: Stable. Cr 1.6 which is his baseline - DVT prophylaxis: SCD, ASTER, Eliquis. - Code Status: Level I - Disposition: Med/Surg Continued [facility] stay due to: abnormal vital signs Discharge planning: home Assessment/Plan Resident Physician Supervision Note: I was present with Dr. Turner during the history and exam. I discussed the case with the resident and agree with the findings and plan as documented in the note. Any exceptions or clarifications are listed here: Pt seen and examined at bedside. States that he feels comfortable on 2LNC approaching his normal baseline off O2. Spouse reports decrease O2 use overall at home, but still needing with exertion and qHS. Reports no fever, weakness, nausea, pharyngitis. Course breath sounds bilaterally with LLL rales. CAP with underlying COPD in exacerbation - continue doxycycline and solumedrol. Using combivent 2/2 previous intolerance of neb. Continue home COPD as above. Wean O2 as tolerated. Long QT - avoid QT prolonging medications Hypokalemia - replete to goal of 4 Else as noted above
[2018-02-23] MEDS: IPRATROPIUM BROMIDE/ALBUTEROL respimat INH INH SCH ×4 (09:13→19:44)
[2018-02-23] MEDS: CEFTRIAXONE SOD INJ 1 GM in DEXTROSE 5% ADD-VANTAGE 50ML 50 ML IV SCH (11:30)
[2018-02-23 12:30] LABS: INFLUENZA B ANTIGEN Neg for Influ B (NEG)
[2018-02-23] MEDS ORDERED: SIMVASTATIN 40 MG TAB PO SCH (21:00)
[2018-02-23] MEDS ORDERED: AcetaZOLAMIDE 250 MG TAB PO SCH (21:00)
[2018-02-24 00:38] VITALS: BP 116/61; PULSE 67; TEMP 36.6; O2SAT 95
[2018-02-24] MEDS: DOXYCYCLINE IV 100 MG in DEXTROSE 5% 100ML 100 ML IV SCH (02:56)
[2018-02-24 06:07] LABS: HEMATOCRIT 39.9 % (42-52); HEMOGLOBIN 13.6 g/dL (14.0-18.0); MEAN CELL VOLUME 101.8 fL (80-100); MEAN CORPUSCULAR HEMOGLOBIN 34.7 pg (25-34); MEAN CORPUSCULAR HGB CONC 34.1 g/dl (32-36); MEAN PLATELET VOLUME 9.9 fL (7.4-10.4); PLATELET COUNT 108 K/uL (130-400); RED CELL DISTRIBUTION WIDTH CV 14.5 % (11.5-14.5); RED CELL DISTRIBUTION WIDTH SD 54.1 fL (36.4-46.3); WHITE BLOOD COUNT 9.89 K/uL (4.8-10.8)
[2018-02-24 06:40] LABS: ALBUMIN 2.5 gm/dl (3.4-5.0); CALCIUM 7.9 mg/dl (8.5-10.1); CREATININE 1.52 mg/dl (0.60-1.40); POTASSIUM 3.5 mmol/L (3.5-5.1); TOTAL PROTEIN 6.4 gm/dl (6.4-8.2)
--- NOTE | 2018-02-24 07:39 | Family Medicine Progress Note ---
Progress Note Date of Service February 24, 2018. Medications Current Inpatient Medications Medications (Trade) Dose Ordered Sig/Franklyn Route Start Time Stop Time Status Last Admin Dose Admin Acetaminophen (Tylenol Tab) 650 mg Q4H PRN PO 02/22/18 22:00 03/24/18 21:59 Al Hydrox/Mg Hydrox/Simethicone (Maalox Max Susp) 15 ml Q4H PRN PO 02/22/18 22:00 03/24/18 21:59 Magnesium Hydroxide (Milk Of Magnesia Susp) 30 ml Q6H PRN PO 02/22/18 22:00 03/24/18 21:59 Polyethylene (Miralax Powder Packet) 17 gm DAILY PRN PO 02/22/18 22:15 03/24/18 22:14 Zolpidem Tartrate (Ambien Tab) 5 mg HSZ PRN PO 02/22/18 22:00 03/24/18 21:59 Ondansetron HCl (Zofran Inj) 4 mg Q6H PRN IV 02/22/18 22:00 03/24/18 21:59 Acetazolamide (Diamox Tab) 250 mg QPM PO 02/23/18 21:00 03/25/18 20:59 02/23/18 19:47 250 MG Amiodarone HCl (Cordarone Tab) 200 mg BID PO 02/23/18 08:00 03/25/18 08:59 02/23/18 19:46 200 MG Salmeterol Xinafoate/ Fluticasone (Advair Diskus 500/50 Inh) 1 puff BID INH 02/23/18 08:00 03/25/18 08:59 02/23/18 19:44 1 PUFF Furosemide (Lasix Tab) 40 mg BID17 PO 02/23/18 09:00 03/25/18 08:59 02/23/18 16:34 40 MG Albuterol/ Ipratropium (Combivent Respimat Inh) 1 puffs QID PRN INH 02/22/18 22:15 03/24/18 22:14 Potassium Chloride (Klor-Con Tab) 20 meq BID PO 02/23/18 08:00 03/25/18 08:59 02/23/18 19:46 20 MEQ Simvastatin (Zocor Tab) 40 mg QPM PO 02/23/18 21:00 03/25/18 20:59 02/23/18 19:46 40 MG Apixaban (Eliquis Tab) 5 mg BID PO 02/23/18 08:00 03/25/18 08:59 02/23/18 19:45 5 MG Pantoprazole Sodium (Protonix Tab) 40 mg BID PO 02/23/18 08:00 03/25/18 08:59 02/23/18 19:46 40 MG Doxycycline Hyclate 100 mg/ Dextrose 110 ml @ 50 mls/hr Q12H IV 02/23/18 02:00 03/02/18 01:59 02/24/18 02:56 50 MLS/HR Lactobacillus Acidophilus (Lactinex Granules Pack) 1 gm TIDM PO 02/23/18 08:00 02/26/18 07:59 02/23/18 16:34 1 GM Methylprednisolone Sodium Succinate 60 mg/Syringe 0.96 ml @ 1.5 mls/min BID IV 02/23/18 08:00 03/25/18 07:59 02/23/18 19:44 1.5 MLS/MIN Albuterol/ Ipratropium (Combivent Respimat Inh) 1 puffs QID INH 02/23/18 09:45 03/25/18 09:44 02/23/18 19:44 1 PUFFS Ceftriaxone Sodium 1 gm/ Dextrose 50 ml @ 100 mls/hr Q24H IV 02/23/18 11:00 03/02/18 10:59 02/23/18 11:30 100 MLS/HR Objective Vital Signs Date Time Temp Pulse Resp B/P (MAP) Pulse Ox O2 Delivery O2 Flow Rate FiO2 02/24/18 00:38 36.6 67 18 116/61 (79) 95 2.0 02/24/18 00:00 Nasal Cannula 2.0 02/23/18 20:00 Nasal Cannula 2.0 02/23/18 16:00 Nasal Cannula 2.0 02/23/18 15:09 36.4 69 18 134/65 (88) 95 Nasal Cannula 2.0 02/23/18 09:00 94 Nasal Cannula 2.0 02/23/18 08:00 98 Nasal Cannula 4.0 Laboratory Results 02/24/18 06:00 02/24/18 06:00 Test 02/23/18 11:35 02/23/18 21:56 02/24/18 06:00 Influenza Type A Antigen Neg for Influ A (NEG) Influenza Type B Antigen Neg for Influ B (NEG) Procalcitonin 0.33 ng/ml (0-0.5) Red Blood Count 3.92 M/uL (4.7-6.1) Mean Corpuscular Volume 101.8 fL (80-100) Mean Corpuscular Hemoglobin 34.7 pg (25-34) Mean Corpuscular Hemoglobin Concent 34.1 g/dl (32-36) RDW Standard Deviation 54.1 fL (36.4-46.3) RDW Coefficient of Variation 14.5 % (11.5-14.5) Mean Platelet Volume 9.9 fL (7.4-10.4) Anion Gap 5.0 mmol/L (3-11) Est Creatinine Clear Calc Drug Dose 57.9 ml/min Estimated GFR () 55.7 Estimated GFR (Non- 48.1 BUN/Creatinine Ratio 23.4 (10-20) Calcium Level 7.9 mg/dl (8.5-10.1) Total Bilirubin 0.9 mg/dl (0.2-1) Aspartate Amino Transf (AST/SGOT) 51 U/L (15-37) Alanine Aminotransferase (ALT/SGPT) 62 U/L (12-78) Alkaline Phosphatase 249 U/L (45-117) Total Protein 6.4 gm/dl (6.4-8.2) Albumin 2.5 gm/dl (3.4-5.0) Globulin 3.9 gm/dl (2.5-4.0) Albumin/Globulin Ratio 0.6 (0.9-2) Resident Tracking Resident Involvement: Resident Care Provided Care Provided: Adult Hospital Medicine (inpatient)
[2018-02-24] MEDS: IPRATROPIUM BROMIDE/ALBUTEROL respimat INH INH SCH ×2 (08:09→12:14)
[2018-02-24] MEDS: FLUTICASONE/SALMETEROL (ADVAIR) 500/50 INH 14 PUFF INH SCH (08:09)
[2018-02-24] MEDS: AMIODARONE 200 MG TAB PO SCH (08:10)
[2018-02-24] MEDS: METHYLPREDNISOLONE IV 60 MG in SYRINGE 0 ML IV SCH (08:10)
[2018-02-24] MEDS: PANTOprazole SOD 40 MG TAB PO SCH (08:10)
[2018-02-24] MEDS: FUROSEMIDE 40 MG TAB PO SCH (08:10)
[2018-02-24] MEDS: APIXABAN 2.5 MG TAB PO SCH (08:11)
[2018-02-24] MEDS: LACTOBACILLUS ACIDOPHILUS 1 GM PACK PO SCH ×2 (08:11→12:00)
[2018-02-24] MEDS: POTASSIUM CHLORIDE 20 MEQ TABCR PO SCH (08:11)
[2018-02-24 08:13] VITALS: BP 133/71; PULSE 64; TEMP 36.4; O2SAT 94
[2018-02-24 08:30] VITALS: O2SAT 94
[2018-02-24] MEDS ORDERED: POTASSIUM CHLORIDE 20 MEQ TABCR PO STA (10:28)
[2018-02-24] MEDS: CEFTRIAXONE SOD INJ 1 GM in DEXTROSE 5% ADD-VANTAGE 50ML 50 ML IV SCH (11:00)
[2018-02-24] MEDS ORDERED: PRED50TA PO (12:03)
[2018-02-24] MEDS ORDERED: DOXY100C76 PO (12:03)
--- NOTE | 2018-02-24 12:07 | Discharge Instructions ---
Discharge Instructions Date of Service February 24, 2018. Admission Reason for Admission: Acute Respiratory Failure W/ Hypoxia, Pna Discharge Discharge Diagnosis / Problem: Community-acquired pneumonia, COPD exacerbation Discharge Goals Goal(s): Improve disease control, Learn about illness Activity Recommendations Activity Limitations: per Instructions/Follow-up section . Instructions / Follow-Up Instructions / Follow-Up You were admitted to the hospital for community-acquired pneumonia and an exacerbation of your COPD. You are being sent home on an antibiotic call doxycycline. You are also being sent home on remainder of your steroid course for 3 more days, next dose tomorrow. Please follow-up with your primary care doctor soon as possible, ideally this coming Thursday, but if not possible early next week. Please return to the nearest emergency department if you develop any worsening difficulty breathing, chest pain, or any other acute concerns. Current Hospital Diet Patient's current hospital diet: AHA Diet (Heart Healthy) Discharge Diet Recommended Diet: AHA Diet (Heart Healthy) Pending Studies Studies pending at discharge: no Laboratory Results Lipid Panel Test 01/08/18 09:32 Range/Units Triglycerides Level 63 0-150 mg/dl Cholesterol Level 127 0-200 mg/dl HDL Cholesterol 69 mg/dl Cholesterol/HDL Ratio 1.8 LDL Cholesterol, Calculated 45 mg/dl Medical Emergencies . Who to Call and When: Medical Emergencies: If at any time you feel your situation is an emergency, please call 911 immediately. . Non-Emergent Contact Non-Emergency issues call your: Primary Care Provider .
[2018-02-24 12:23] VITALS: BP 133/71; PULSE 64; TEMP 36.4; O2SAT 94
--- NOTE | 2018-02-24 17:40 | Family Medicine Progress Note ---
Progress Note Date of Service February 24, 2018. History For full attending attestation, see discharge summary from day of examination. Pt seen and examined at bedside. Reports return of respiratory status to baseline - tolerating O2 qHS and with exertion but resting comfortably off in bed otherwise. Improved cough, wheeze and SOB. Lungs with mild end expiratory wheeze throughout with decreased BS overall. S1/S2 nl RRR no MCG, abd NT, ND, BS +. PNA in the setting of COPD w/ exacerbation - convert to PO doxycycline and oral prednisone burst to complete 5 day steroid course. Long QTc - avoiding exacerbating medications. Repeat EKG stable. Electrolytes - replete w/ goal of 4.0, will need recheck at outpatient f/u Transaminitis - underlying gallbladder disease with regular etOH use - reinforce need for cessation of latter, evaluation and treatment of former. Defers at this time. CKD III - at baseline Cr Paroxysmal AF - rate controlled on amiodarone w/ NOAC Diastolic CHF - continue lasix
--- NOTE | 2018-02-24 17:54 | Discharge Summary ---
Discharge Summary Date of Service February 24, 2018. Discharge Summary Admission Date: February 22, 2018 at 22:02 Discharge Date: February 24, 2018 Discharge Disposition: Home Principal Diagnosis: Community-acquired pneumonia Problems/Secondary Diagnoses: COPD exacerbation Prolonged QTc Hypokalemia Immunizations: Have You Had Influenza Vaccine: Yes History of Tetanus Vaccine?: Yes History of Pneumococcal: Yes History of Hepatitis B Vaccine: No Procedures: 22 Feb 2018 - CHEST ONE VIEW PORTABLE IMPRESSION: 1. Ill-defined alveolar opacities about the left midlung are suspicious for developing pneumonia. 2. Subsegmental left basilar opacities suggest atelectasis or scarring. Consultations: None Medication Reconciliation New Medications: Doxycycline Monohydrate (Monodox) 100 Mg Cap 100 MG PO BID for 7 Days, #14 CAP Prednisone (Prednisone) 50 Mg Tab 50 MG PO DAILY for 3 Days, #3 TAB first dose February 25 Continued Medications: Acetazolamide (Acetazolamide) 250 Mg Tab 250 MG PO QPM Amiodarone Hcl (Cordarone) 200 Mg Tab 200 MG PO BID Apixaban (Eliquis) 5 Mg Tab 5 MG PO BID Ergocalciferol (Vitamin D 24469 Unit) 50,000 Unit Cap 61584 UNITS PO WK Fluticasone Prop/Salmeterol (Advair Diskus 500/50 60 Dose) 1 Ea Aerp 1 PUFF INH BID Furosemide (Lasix) 40 Mg Tab 40 MG PO BID, TAB Ipratropium-Albuterol (Combivent Respimat) 1 Aer Aer 1 PUFFS INH QID PRN for SOB/Wheezing Nitroglycerin (Nitrostat) 0.4 Mg Tab 0.4 MG UT DIRECTED PRN for chest pain, BTL Omeprazole (Prilosec) 20 Mg Cap 40 MG PO BID Potassium Ext Rel (Klor-Con) 20 Meq Tabcr 20 MEQ PO BID Simvastatin (Simvastatin) 40 Mg Tab 40 MG PO QPM Discharge Exam General Appearance: Awake, alert & oriented, comfortable in general, NAD. CV: +S1S2 RRR, no murmur. Pulm: Minimal expiratory wheezing throughout. On room air. Abdomen: +BS, soft, non-tender, non-distended. Extremities: No pedal edema or calf tenderness. Moving all extremities naturally and easily. Neuro: No gross neuro deficits. Skin: Chronic forearm skin changes without evidence of acute infection. Review of Systems: Constitutional: No fever, No chills Respiratory: + cough, No shortness of breath Cardiovascular: No chest pain, No edema Abdomen: No pain, No nausea, No vomiting, No diarrhea Hospital Course HPI at time of admission on February 22, 2018 at 21:36 Pt is a 62M with a PMHx of advanced COPD, PAF, diastolic CHF that presents with fevers and SOB x 1 day. He has an increased oxygen requirement to 4L /min at rest from his baseline of not being on oxygen. In the ER patient was given Methylprednisone, IV potassium and Zosyn. Patient measured his oxygen saturation yesterday evening and was around 82%. He also measured his temp and got 101.9F. Pt states that his LE might also be a little more edematous. Denies chest pain, denies vomiting, denies diarrhea, denies wheezing, states he doesn't even have a significant cough. Discharge summary on 24 Feb 2018 62-year-old male admitted on 22 Feb 2018 for community-acquired pneumonia. PMH: COPD, paroxysmal atrial fibrillation, transaminitis Community-acquired pneumonia: As suggested by his increased oxygen requirement and chest x-ray suggestive of left midlung opacity. Given a dose of Zosyn in the ED, then transitioned to Rocephin and doxycycline as an inpatient. -Discharging on doxycycline. -Recommend outpatient chest x-ray in 4-6 weeks for resolution. COPD exacerbation: Placed on Solu-Medrol initially, then transitioned to prednisone burst for 5 total days of steroids. Patient did not want to have nebulizers, so he was placed on Combivent 4 times daily. He continued his home Advair. At time of discharge, the patient was still on his baseline 2 L of oxygen at night but none during the day. Hypokalemia: K of 2.7 on arrival. Likely some respiratory component to this. Was replaced as well with improvement to 3.5 at discharge. He remains on his home potassium 20 mEq twice daily scheduled. Prolonged QTc: Noted to be 588 on admission. Repeat EKG the following day noted a QTc of 522. Avoided quinolones and macrolides due to this. Chronic medical issues: - Paroxysmal atrial fibrillation: EKG on day of discharge noted sinus rhythm, rate of 60, with a first-degree AV block and prolonged QTc as noted above. He continued on his home dose of amiodarone. Is also anticoagulated with Eliquis. - Chronic diastolic CHF: Clinically euvolemic. Continued his home p.o. Lasix and AHA diet. - Transaminitis: Per history has had negative Hep C screening in the past. Likely 2/2 alcohol use (2-3 units nightly). Advised alcohol cessation. Avoid NSAIDs and Tylenol. - Hyperlipidemia: Continue Simvastatin - CKD 3: Stable. Cr 1.6 which is his baseline Total Time Spent: Greater than 30 minutes This includes examination of the patient, discharge planning, medication reconciliation, and communication with other providers. Discharge Instructions Please refer to the electronic Patient Visit Report (Discharge Instructions) for additional information. Additional Copies To Luis Azevedo M.D. Resident Tracking Resident Involvement: Resident Care Provided Care Provided: Adult Hospital Medicine (inpatient) Assessment/Plan Resident Physician Supervision Note: I was present with Dr. Fisher during the history and exam. I discussed the case with the resident and agree with the findings and plan as documented in the note. Any exceptions or clarifications are listed here: For full attending documentation, see note from day of discharge.
== END 2018-02-24 13:30 | disposition home or self-care (01) | DRG 190 ==
LOC: C.EDB 19:24 → C.4E 22:02 → ENRESERV 22:16
PROVIDERS: ADMIT Internal Medicine; ATTEND Family Medicine
DX: J44.1 Chronic obstructive pulmonary disease with (acute) exacerbation (principal); J18.9 Pneumonia, unspecified organism; I50.32 Chronic diastolic (congestive) heart failure; E87.6 Hypokalemia; E86.0 Dehydration; I48.0 Paroxysmal atrial fibrillation; F10.10 Alcohol abuse, uncomplicated; R74.0 Nonspecific elevation of levels of transaminase and lactic acid dehydrogenase [LDH]; N18.3 Chronic kidney disease, stage 3 (moderate); I45.81 Long QT syndrome; Z87.01 Personal history of pneumonia (recurrent); Z87.891 Personal history of nicotine dependence; Z99.81 Dependence on supplemental oxygen; Z80.9 Family history of malignant neoplasm, unspecified; Z82.49 Family history of ischemic heart disease and other diseases of the circulatory system

== ENCOUNTER → 2018-04-30 | Outpatient (CLI) | payer BC ==
[~2018-04-30] MED LIST changes: -ACET-1325 PO; -AMIO200T4 PO; -APIX1TAB3 PO; -CEFD300C3 PO; -DXY100 PO; +ERGO500011 PO; -IPRASOL4 INH; -LSN20 PO; +MIDO5TAB PO; +PANT1TAB4 PO; +POTA-639 PO; -POTA1TAB97 PO; +PRMT25 PO; -SIMV40TA2 PO
[2018-04-30 17:55] LABS: BLOOD UREA NITROGEN 36 mg/dl (7-18); CALCIUM 8.4 mg/dl (8.5-10.1); CARBON DIOXIDE 29 mmol/L (21-32); CREATININE 2.07 mg/dl (0.60-1.40); GLUCOSE 115 mg/dl (70-99); POTASSIUM 4.7 mmol/L (3.5-5.1); SODIUM 135 mmol/L (136-145)
== END | disposition home or self-care (01) ==
LOC: C.LABBFT 13:37
PROVIDERS: ATTEND Physician Assistant Medical
DX: Z00.00 Encounter for general adult medical examination without abnormal findings (principal); R60.0 Localized edema; R53.83 Other fatigue; E55.9 Vitamin D deficiency, unspecified

== ENCOUNTER 2018-05-04 20:06 | Inpatient (IN) | payer BC ==
[~2018-05-04] VITALS: Ht 188 cm; Wt 96.7 kg
[~2018-05-04 20:06] MED LIST changes: -ERGO500011 PO; -MIDO5TAB PO; -POTA-639 PO
[2018-05-04] MEDS ORDERED: MIDO5TAB PO (20:55)
--- NOTE | 2018-05-04 20:57 | DIAGNOSTIC IMAGING REPORT ---
CHEST ONE VIEW PORTABLE HISTORY: 63 years-old Male EVALUATE WEAKNESS acute weakness COMPARISON: Chest radiographs 04/06/2018 TECHNIQUE: Portable AP view of the chest FINDINGS: Cardiac silhouette is upper limits of normal in size. Calcification of the aorta. No pneumothorax or large pleural effusion. Emphysema with chronic interstitial coarsening. Subsegmental bibasilar opacities, left greater than right. Degenerative changes of the shoulders and spine. IMPRESSION: 1. Emphysema with chronic interstitial coarsening. 2. Subsegmental left greater than right bibasilar opacities suggest atelectasis or pneumonitis. The above report was generated using voice recognition software. It may contain grammatical, syntax or spelling errors. Electronically signed by: Fan Benjamin M.D. 05/04/2018 8:56 PM Dictated Date/Time: 05/04/2018 8:53 PM
[2018-05-04 20:59] LABS: HEMATOCRIT 33.7 % (42-52); HEMOGLOBIN 11.1 g/dL (14.0-18.0); MEAN CELL VOLUME 103.4 fL (80-100); MEAN CORPUSCULAR HGB CONC 32.9 g/dl (32-36); MEAN PLATELET VOLUME 9.5 fL (7.4-10.4); PLATELET COUNT 165 K/uL (130-400); RED CELL DISTRIBUTION WIDTH CV 17.6 % (11.5-14.5); RED CELL DISTRIBUTION WIDTH SD 66.7 fL (36.4-46.3); WHITE BLOOD COUNT 20.85 K/uL (4.8-10.8)
[2018-05-04] MEDS ORDERED: POTA-639 PO (21:05)
[2018-05-04] MEDS ORDERED: ERGO500011 PO (21:05)
[2018-05-04 21:10] LABS: INR 1.6 (0.9-1.1)
[2018-05-04 21:17] LABS: BASO % 0.1 %; BASO ABS # 0.03 K/uL (0-0.2); EOS % 0.3 %; EOS ABS # 0.07 K/uL (0-0.5); IG# 0.11 K/uL (0.00-0.02); LYMPH % 8.7 %; LYMPH ABS # 1.81 K/uL (1.2-3.4); MONO % 7.8 %; MONO ABS # 1.63 K/uL (0.11-0.59); NEUT % 82.6 %
[2018-05-04 21:18] LABS: ALBUMIN 2.8 gm/dl (3.4-5.0); ALT/SGPT 36 U/L (12-78); AST/SGOT 64 U/L (15-37); BLOOD UREA NITROGEN 47 mg/dl (7-18); CALCIUM 8.5 mg/dl (8.5-10.1); CARBON DIOXIDE 29 mmol/L (21-32); GLUCOSE 86 mg/dl (70-99); LIPASE 170 U/L (73-393); POTASSIUM 5.6 mmol/L (3.5-5.1); SODIUM 133 mmol/L (136-145)
[2018-05-04 21:34] LABS: ALKALINE PHOSPHATASE 213 U/L (45-117); TOTAL PROTEIN 6.4 gm/dl (6.4-8.2)
[2018-05-04] MEDS ORDERED: PIPERACILLIN/TAZOBACTAM 4.5 GM/100ML D5W IV STA (22:17)
[2018-05-04] MEDS ORDERED: SODIUM CHLORIDE 0.9% 500ML 500 ML IV STA (22:17)
[2018-05-04] MEDS ORDERED: SODIUM CHLORIDE 0.9% 1000ML 1,000 ML IV STA (22:17)
[2018-05-04] MEDS ORDERED: LEVAQUIN 750MG / 150ML D5W IV STA (22:17)
[2018-05-04] MEDS ORDERED: PIPERACILL/TAZOBAC CONSULT ACTIVE PRN (23:30)
[2018-05-04] MEDS ORDERED: VANCOMYCIN CONSULT ACTIVE PRN (23:30)
[2018-05-05] VITALS (8 sets, daily range): BP systolic 95–128; BP diastolic 48–59; PULSE 68–87; TEMP 36.3–36.5; O2SAT 89–94; Ht 188 cm; Wt 96.7 kg
--- NOTE | 2018-05-05 00:25 | History and Physical ---
History & Physical Date & Time of Service: May 04, 2018 at 23:19 Chief Complaint: Shortness Of Breath/Weakness Primary Care Physician: Luis Azevedo M.D. History of Present Illness Source: patient, family Manuel is a 63 year old male with a PMH of Decompensated Cirrhosis, COPD, CHF and Afib that presented to [facility] via EMS due to worsening fatigue and cough. He notes that he was sitting on his toilet this afternoon at approximately 4pm and he was unable to get off the toilet due to weakness. He therefore called EMS to come and take him to the hospital. He notes that he has been feeling very weak over the last several weeks. He has had a decreased appetite and does not feel like eating very much. He also notes that he has had a productive cough of white/yellow sputum for the past 3 weeks. He says the swelling in his lower extremities has gotten worse over the last few days. He does feel short of breath with ambulation. He has had diarrhea over the last few weeks. He denies any nausea, vomiting, hematuria, coughing of blood, fevers, chills, visual changes, headaches. Of note the patient was here 1 month ago and had a complicated hospital stay with acute blood loss anemia secondary to grade 1 esophageal varices and decompensated cirrhosis. On laboratory findings he his BELL positive and is positive for anti-smooth muscle antibody, however on repeat testing these labs were negative. While in hospital he developed hepatorenal syndrome and had worsening of his kidney function. He was therefore transferred to [place] for a possible liver transplant, but due to the fact that his last drink was in March he did not qualify for a liver transplant as he has to be 6 months from his last drink. His liver doctor is Dr. Houston. He plans to have a therapeutic paracentesis this Thursday at [facility] and he also instructed the patient to stop taking his lasix today. The patient no longer drinks alcohol. He said to me today that if he were to stop breathing or if his heart were to stop then he would not want any further intervention. Past Medical/Surgical History Medical Problems: (1) Acute renal failure (2) Acute renal insufficiency (3) Acute respiratory failure (4) Acute respiratory failure with hypoxia (5) DOMINIQUE (acute kidney injury) (6) Altered mental status (7) Anemia (8) Atrial fibrillation with RVR (9) Autoimmune hepatitis (10) Bilateral lower leg cellulitis (11) Chest pressure (12) CHF (congestive heart failure) (13) CHF (congestive heart failure) (14) CHF exacerbation (15) Cirrhosis (16) COPD (chronic obstructive pulmonary disease) (17) COPD (chronic obstructive pulmonary disease) (18) COPD exacerbation (19) Dehydration (20) Dehydration (21) Elevated liver enzymes (22) Febrile illness (23) Hepatorenal syndrome (24) Hypokalemia (25) Hypokalemia (26) Hypokalemia (27) Hyponatremia (28) Hyponatremia (29) Hypoxia (30) Lower extremity edema (31) pna (32) PNA (pneumonia) (33) Pneumonia (34) Ruptured varicosity (35) Sepsis (36) SIRS (systemic inflammatory response syndrome) (37) SOB (shortness of breath) (38) Symptomatic bradycardia (39) Upper GI bleed Family History Cancer Heart disease Hypertension Social History Smoking Status: Former Smoker Drug Use: none Marital Status: Housing status: lives with significant other Occupational Status: employed Immunizations History of Influenza Vaccine: Yes History of Tetanus Vaccine?: Yes History of Pneumococcal: Yes History of Hepatitis B Vaccine: No Allergies Coded Allergies: [place] (Verified Allergy, Intermediate, Hives, 05/04/18) From fresh strawberries Home Medications Scheduled Ergocalciferol (Vitamin D 90924 Unit), 50,000 INTER.UNIT PO WK Fluticasone Prop/Salmeterol (Advair Diskus 500/50 60 Dose), 1 PUFF INH BID Home O2 Therapy (Oxygen), 2 LITERS NA HS Midodrine Hcl (Midodrine Hcl), 5 MG PO TID Omeprazole (Prilosec), 40 MG PO BID Potassium Ext Rel (Klor-Con), 20 MEQ PO BID Scheduled PRN Ipratropium-Albuterol (Combivent Respimat), 1 PUFF INH QID PRN for SOB/Wheezing Nitroglycerin (Nitrostat), 0.4 MG UT UD PRN for Chest Pain Review of Systems 10 systems were reviewed and negative except as noted in the HPI Physical Exam Vital Signs Date Time Temp Pulse Resp B/P (MAP) Pulse Ox O2 Delivery O2 Flow Rate FiO2 05/04/18 21:45 85 135/50 93 Nasal Cannula 4.0 05/04/18 20:34 87 05/04/18 20:29 94 Nasal Cannula 4.0 05/04/18 20:28 36.8 88 19 138/58 94 Nasal Cannula 4.0 05/04/18 20:22 94 Nasal Cannula 4.0 General Appearance: WD/WN, no apparent distress Head: normocephalic Eyes: PERRL, + pertinent finding (scleral jaundice) ENT: + pertinent finding (dentures in place) Neck: supple, no adenopathy, no JVD, trachea midline Respiratory/Chest: chest non-tender, + decreased breath sounds (bilaterally), + wheezing (bilateral wheezes) Cardiovascular: + irregularly irregular, + pertinent finding (difficulty illiciting heart sounds) Abdomen/GI: normal bowel sounds, soft, + distended, + pertinent finding (+ ascites present, no warmth or redness on palpation of abdomen) Extremities/Musculoskelatal: no calf tenderness, + pedal edema (+3 edema to mid miller, with chronic venous changes and skin sloughing), + pertinent finding ( unable to palpate peripheral pulses due to swelling) Neurologic/Psych: alert, normal mood/affect, oriented x 3 Skin: + jaundice Diagnostics Laboratory Results Results Past 24 Hours Test 05/04/18 20:33 05/04/18 20:49 Range/Units White Blood Count 20.85 4.8-10.8 K/uL Red Blood Count 3.26 4.7-6.1 M/uL Hemoglobin 11.1 14.0-18.0 g/dL Hematocrit 33.7 42-52 % Mean Corpuscular Volume 103.4 80-100 fL Mean Corpuscular Hemoglobin 34.0 25-34 pg Mean Corpuscular Hemoglobin Concent 32.9 32-36 g/dl Platelet Count 165 130-400 K/uL Mean Platelet Volume 9.5 7.4-10.4 fL Neutrophils (%) (Auto) 82.6 % Lymphocytes (%) (Auto) 8.7 % Monocytes (%) (Auto) 7.8 % Eosinophils (%) (Auto) 0.3 % Basophils (%) (Auto) 0.1 % Neutrophils # (Auto) 17.20 1.4-6.5 K/uL Lymphocytes # (Auto) 1.81 1.2-3.4 K/uL Monocytes # (Auto) 1.63 0.11-0.59 K/uL Eosinophils # (Auto) 0.07 0-0.5 K/uL Basophils # (Auto) 0.03 0-0.2 K/uL RDW Standard Deviation 66.7 36.4-46.3 fL RDW Coefficient of Variation 17.6 11.5-14.5 % Immature Granulocyte % (Auto) 0.5 % Immature Granulocyte # (Auto) 0.11 0.00-0.02 K/uL Prothrombin Time 16.9 9.0-12.0 SECONDS Prothromb Time International Ratio 1.6 0.9-1.1 Activated Partial Thromboplast Time 39.0 21.0-31.0 SECONDS Partial Thromboplastin Ratio 1.5 Sodium Level 133 136-145 mmol/L Potassium Level 5.6 3.5-5.1 mmol/L Chloride Level 98 98-107 mmol/L Carbon Dioxide Level 29 21-32 mmol/L Anion Gap 7.0 3-11 mmol/L Blood Urea Nitrogen 47 7-18 mg/dl Creatinine 2.60 0.60-1.40 mg/dl Est Creatinine Clear Calc Drug Dose 37.5 ml/min Estimated GFR () 28.9 Estimated GFR (Non- 24.9 BUN/Creatinine Ratio 18.0 10-20 Random Glucose 86 70-99 mg/dl Calcium Level 8.5 8.5-10.1 mg/dl Magnesium Level 2.0 1.8-2.4 mg/dl Total Bilirubin 7.0 0.2-1 mg/dl Direct Bilirubin 2.6 0-0.2 mg/dl Aspartate Amino Transf (AST/SGOT) 64 15-37 U/L Alanine Aminotransferase (ALT/SGPT) 36 12-78 U/L Alkaline Phosphatase 213 45-117 U/L Ammonia 65.5 11-32 umol/L Total Creatine Kinase 92 39-308 U/L Creatine Kinase MB 3.0 0.5-3.6 ng/ml Creatine Kinase MB Ratio 3.3 0-3.0 Troponin I < 0.015 0-0.045 ng/ml Total Protein 6.4 6.4-8.2 gm/dl Albumin 2.8 3.4-5.0 gm/dl Lipase 170 73-393 U/L Thyroid Stimulating Hormone (TSH) 1.980 0.300-4.500 uIu/ml Bedside Lactic Acid Venous 2.96 0.90-1.70 mmol/L Microbiology Results 05/04/18 Blood Culture, Received Pending 05/04/18 Blood Culture, Received Pending Diagnostic Radiology CHEST ONE VIEW PORTABLE HISTORY: 63 years-old Male EVALUATE WEAKNESS acute weakness COMPARISON: Chest radiographs 04/06/2018 TECHNIQUE: Portable AP view of the chest FINDINGS: Cardiac silhouette is upper limits of normal in size. Calcification of the aorta. No pneumothorax or large pleural effusion. Emphysema with chronic interstitial coarsening. Subsegmental bibasilar opacities, left greater than right. Degenerative changes of the shoulders and spine. IMPRESSION: 1. Emphysema with chronic interstitial coarsening. 2. Subsegmental left greater than right bibasilar opacities suggest atelectasis or pneumonitis. Impression Assessment and Plan 62 year old male with a PMH of decompensated cirrhosis, CHF, COPD, Atrial fibrillation, HLD, HTN and stage 4 CKD that presented to [facility] with worsening fatigue and productive cough. Hospital acquired pneumonia/COPD exacerbation - levaquin and zosyn given in ED - add vanc for hospital pneumonia coverage - order sputum cultures - continue home inhalers, patient does not want duonebs - IV steroids 80mg - hold home inhalers for now - monitor WCC DOMINIQUE on CKD stage 4 likely secondary to prerenal azotemia - recently diagnosed with hepatorenal syndrome and put on midodrine, albumin and octreotide - was discharged on midodrine at last admission - hold lasix - 25% albumin 1 bottle to be given - order UA - continue Vit D Decompensated Cirrhosis likely secondary to alcoholic hepatitis - no official biopsy has been done - grade 1 esophageal varices on recent EGD, will restart coreg - negative diagnostic paracentesis last admission, plan for therapeutic paracentesis on Thursday - follows with Dr. Proctor at [facility] - will restart coreg at 3.125 bid for afib and portal hypertension - INR is elevated at 1.6, repeat in the AM - Consult GI - MELD score of 26, with 20% 3 month mortality - low sodium renal diet - will add lactulose and restart coreg, continue midodrine Elevated ammonia level and mild confusion today - 30ml PO tid of lactulose and titrate to 2-3 soft stools per day Hx of ulcerated gastric polyps and grade 1 esophageal varices - continue omeprazole 20mg bid - no further anticoagulation due to risk for recurrent GI bleed Paroxysmal afib - hold off on anticoagulation due to recent GI bleed - will restart coreg to help control HR - continue amiodarone Hyperlipidemia - statin stopped due to liver disease Hyperkalemia - hold PO potassium - no significant EKG changes - continue to monitor Diet - low fat, low salt diet - nutrition consult DVT prophylaxis - hold off on chemical anticoagulation due to recent GI bleed - hold off on mechanical SCD's due to lower extremity edema Dispo - lives with DNR Resuscitation Status VTE Prophylaxis Will order VTE Prophylaxis: No Reason for no VTE drug order: Contraindicated Reason no Mechanical VTE Order: Treatment not tolerated
--- NOTE | 2018-05-05 00:58 | EMERGENCY ROOM VISIT NOTE ---
History Report prepared by Vinayak: Rashaad Hill Under the Supervision of: Dr. Yann Villanueva M.D. First contact with patient: 20:07 Chief Complaint: SHORTNESS OF BREATH Stated Complaint: SHORTNESS OF BREATH/WEAKNESS History of Present Illness The patient is a 63 year old male who presents to the Emergency Room with complaints of constant weakness that began this afternoon. Per the patient's record, he was admitted in the hospital here at [facility] and had a paracentesis performed. He was discharged on April 06 to [place] due to decompensated cirrhosis. He states that while he was at [place], he had lab work done and was being observed. The patient states he did not have any procedures done during his time there. He notes that they did discuss a possible transplant if things did not turn over. He reports that he returned home on April 09. The patient states that since his return, he has felt has as if his abdomen has been distended. He reports that for the last week and a half he has been experiencing a productive cough. The patient states that he noticed his lower extremities have been swollen and erythematous recently as well. He reports his lower extremities have been intermittently swelling for a while but states the redness is new. The patient states that today he suddenly became weak. He states that he was sitting on the toilet and was not able to get up due to the weakness severity. The patient states his eventually found him an hour later. His notes that the patient has had a lack of appetite and a lack of sleep lately. The patient denies LOC, headache, fevers, chills, diaphoresis, visual changes, neck pain, chest pain, breathing difficulties, nausea, vomiting , abdominal pain, back pain, melena, hematochezia, urinary symptoms, numbness, lymphadenopathy, rash, or other complaints. Source of History: patient Onset: this afternoon Position: other (generalized) Quality: other (weakness) Timing: constant Associated Symptoms: + cough Note: Associated symptoms: lower extremity swelling and erythema, lack of sleep, lack of appetite Review of Systems See HPI for pertinent positives and negatives. A total of ten systems were reviewed and were otherwise negative. Past Medical & Surgical Medical Problems: (1) Acute renal insufficiency (2) Acute respiratory failure with hypoxia (3) DOMINIQUE (acute kidney injury) (4) Atrial fibrillation with RVR (5) Autoimmune hepatitis (6) Bilateral lower leg cellulitis (7) CHF (congestive heart failure) (8) CHF exacerbation (9) Cirrhosis (10) COPD (chronic obstructive pulmonary disease) (11) Hyponatremia (12) Hyponatremia (13) PNA (pneumonia) (14) Upper GI bleed (15) Weakness Family History Cancer Heart disease Hypertension Social History Smoking Status: Never Smoker Drug Use: none Marital Status: Housing Status: lives with significant other Occupation Status: employed Current/Historical Medications Scheduled Ergocalciferol (Vitamin D 87366 Unit), 50,000 INTER.UNIT PO WK Fluticasone Prop/Salmeterol (Advair Diskus 500/50 60 Dose), 1 PUFF INH BID Home O2 Therapy (Oxygen), 2 LITERS NA HS Midodrine Hcl (Midodrine Hcl), 5 MG PO TID Omeprazole (Prilosec), 40 MG PO BID Potassium Ext Rel (Klor-Con), 20 MEQ PO BID Scheduled PRN Ipratropium-Albuterol (Combivent Respimat), 1 PUFF INH QID PRN for SOB/Wheezing Nitroglycerin (Nitrostat), 0.4 MG UT UD PRN for Chest Pain Allergies Coded Allergies: [place] (Verified Allergy, Intermediate, Hives, 05/04/18) From fresh strawberries Physical Exam Vital Signs Date Time Temp Pulse Resp B/P (MAP) Pulse Ox O2 Delivery O2 Flow Rate FiO2 05/05/18 00:08 85 05/04/18 23:29 134/60 05/04/18 23:00 82 15 91 Nasal Cannula 4.0 05/04/18 21:45 85 135/50 93 Nasal Cannula 4.0 05/04/18 20:34 87 05/04/18 20:29 94 Nasal Cannula 4.0 05/04/18 20:28 36.8 88 19 138/58 94 Nasal Cannula 4.0 05/04/18 20:22 94 Nasal Cannula 4.0 Physical Exam GENERAL: Awake, alert, well-appearing, in mild distress HENT: Normocephalic, atraumatic. Oropharynx unremarkable. EYES: Normal conjunctiva. Sclera non-icteric. NECK: Supple. No nuchal rigidity. FROM. No masses. RESPIRATORY: Coarse breath sounds. No wheezes. No rales. Normal respiratory effort. CARDIAC: Normal rate. Normal rhythm. No murmurs. No rubs. Extremities warm and well perfused. Pulses equal. No JVD. GI: Soft, mildly distended. Fluid wave present. No tenderness to palpation. No rebound or guarding. No masses. RECTAL: Deferred. MUSCULOSKELETAL: Atraumatic. Chest examination reveals no tenderness. The back is symmetrical on inspection without obvious abnormality. There is no CVA tenderness to palpation. No joint edema. LOWER EXTREMITIES: Calves are equal size bilaterally and non-tender. 3+ pitting edema. Right lower extremity redness. NEURO: Normal sensorium. No sensory or motor deficits noted. SKIN: No rash or jaundice noted. Medical Decision & Procedures ER Provider Diagnostic Interpretation: X-ray: Per my interpretation, radiologist review. CHEST ONE VIEW PORTABLE HISTORY: 63 years-old Male EVALUATE WEAKNESS acute weakness COMPARISON: Chest radiographs 04/06/2018 TECHNIQUE: Portable AP view of the chest FINDINGS: Cardiac silhouette is upper limits of normal in size. Calcification of the aorta. No pneumothorax or large pleural effusion. Emphysema with chronic interstitial coarsening. Subsegmental bibasilar opacities, left greater than right. Degenerative changes of the shoulders and spine. IMPRESSION: 1. Emphysema with chronic interstitial coarsening. 2. Subsegmental left greater than right bibasilar opacities suggest atelectasis or pneumonitis. The above report was generated using voice recognition software. It may contain grammatical, syntax or spelling errors. Electronically signed by: Fan Benjamin M.D. 05/04/2018 8:56 PM Dictated Date/Time: 05/04/2018 8:53 PM Laboratory Results 05/04/18 20:33 Red Blood Count 3.26, Mean Corpuscular Volume 103.4, Mean Corpuscular Hemoglobin 34.0, Mean Corpuscular Hemoglobin Concent 32.9, Mean Platelet Volume 9.5, Neutrophils (%) (Auto) 82.6, Lymphocytes (%) (Auto) 8.7, Monocytes (%) ( Auto) 7.8, Eosinophils (%) (Auto) 0.3, Basophils (%) (Auto) 0.1, Neutrophils # ( Auto) 17.20, Lymphocytes # (Auto) 1.81, Monocytes # (Auto) 1.63, Eosinophils # ( Auto) 0.07, Basophils # (Auto) 0.03 05/04/18 20:33 Test 05/04/18 20:33 05/04/18 20:49 White Blood Count 20.85 K/uL (4.8-10.8) Red Blood Count 3.26 M/uL (4.7-6.1) Hemoglobin 11.1 g/dL (14.0-18.0) Hematocrit 33.7 % (42-52) Mean Corpuscular Volume 103.4 fL (80-100) Mean Corpuscular Hemoglobin 34.0 pg (25-34) Mean Corpuscular Hemoglobin Concent 32.9 g/dl (32-36) Platelet Count 165 K/uL (130-400) Mean Platelet Volume 9.5 fL (7.4-10.4) Neutrophils (%) (Auto) 82.6 % Lymphocytes (%) (Auto) 8.7 % Monocytes (%) (Auto) 7.8 % Eosinophils (%) (Auto) 0.3 % Basophils (%) (Auto) 0.1 % Neutrophils # (Auto) 17.20 K/uL (1.4-6.5) Lymphocytes # (Auto) 1.81 K/uL (1.2-3.4) Monocytes # (Auto) 1.63 K/uL (0.11-0.59) Eosinophils # (Auto) 0.07 K/uL (0-0.5) Basophils # (Auto) 0.03 K/uL (0-0.2) RDW Standard Deviation 66.7 fL (36.4-46.3) RDW Coefficient of Variation 17.6 % (11.5-14.5) Immature Granulocyte % (Auto) 0.5 % Immature Granulocyte # (Auto) 0.11 K/uL (0.00-0.02) Prothrombin Time 16.9 SECONDS (9.0-12.0) Prothromb Time International Ratio 1.6 (0.9-1.1) Activated Partial Thromboplast Time 39.0 SECONDS (21.0-31.0) Partial Thromboplastin Ratio 1.5 Anion Gap 7.0 mmol/L (3-11) Est Creatinine Clear Calc Drug Dose 37.5 ml/min Estimated GFR () 28.9 Estimated GFR (Non- 24.9 BUN/Creatinine Ratio 18.0 (10-20) Calcium Level 8.5 mg/dl (8.5-10.1) Magnesium Level 2.0 mg/dl (1.8-2.4) Total Bilirubin 7.0 mg/dl (0.2-1) Direct Bilirubin 2.6 mg/dl (0-0.2) Aspartate Amino Transf (AST/SGOT) 64 U/L (15-37) Alanine Aminotransferase (ALT/SGPT) 36 U/L (12-78) Alkaline Phosphatase 213 U/L (45-117) Ammonia 65.5 umol/L (11-32) Total Creatine Kinase 92 U/L (39-308) Creatine Kinase MB 3.0 ng/ml (0.5-3.6) Creatine Kinase MB Ratio 3.3 (0-3.0) Troponin I < 0.015 ng/ml (0-0.045) Total Protein 6.4 gm/dl (6.4-8.2) Albumin 2.8 gm/dl (3.4-5.0) Lipase 170 U/L (73-393) Thyroid Stimulating Hormone (TSH) 1.980 uIu/ml (0.300-4.500) Bedside Lactic Acid Venous 2.96 mmol/L (0.90-1.70) Laboratory results reviewed by me Medications Administered Medications (Trade) Dose Ordered Sig/Franklyn Route Start Time Stop Time Status Last Admin Dose Admin Sodium Chloride 500 ml @ 999 mls/hr Q31M STAT IV 05/04/18 22:17 05/04/18 22:47 DC 05/04/18 22:17 999 MLS/HR Piperacillin Sod/ Tazobactam Sod (Zosyn Iv) 4.5 gm NOW STAT IV 05/04/18 22:17 05/04/18 22:20 DC 05/04/18 22:46 4.5 GM Levofloxacin (Levaquin / D5W) 750 mg NOW STAT IV 05/04/18 22:17 05/04/18 22:20 DC 05/04/18 23:21 750 MG ECG Per My Interpretation Indication: weakness Rate (beats per minute): 87 Rhythm: normal sinus Findings: 1st degree AV block, Q waves (Anterior, Septal), other (No PVC, No PAC, No ST elevation) ED Course 2010: The patient was evaluated in room B09. A complete history and physical exam was performed. 2217: Ordered Levofloxacin 750 mg IV, Zosyn 4.5 gm IV, Sodium Chloride 1000 ml @ 125 mls/hr IV, Sodium Chloride 500 ml @ 999 mls/hr IV. 2233: Upon reexamination, the patient was resting comfortably. I discussed the test results and treatment plan with him. The patient will be evaluated for further management. 2244: I discussed the patients case with Dr. Love [facility] Hospitalist. She understands the patients condition and agrees to accept the patient. The patient will be evaluated for further management and care. Medical Decision Prior records/ancillary studies reviewed and summarized above. Nursing notes reviewed and agree them. Additional history obtained from the patient's . The patient's history was concerning for weakness. Differential diagnosis: Etiologies such as metabolic, infection, hypo/hyperglycemia, electrolyte abnormalities, cardiac sources, intracerebral event, toxicologic, neurologic, as well as others were entertained. Physical examination: As above. Benign abdomen. She was ER treatment provided: IV Lock Normal saline hydration IV Levaquin IV Zosyn On reassessment the patient felt better. Diagnostics interpretation by me: ECG: No acute ischemia. The labs revealed significant leukocytosis on CBC. Mild elevation of INR. Mild elevation of ammonia level however the patient is not encephalopathic. Blood cultures pending. Lactate moderately elevated. Mild elevation of LFTs. Imaging studies: X-ray as above. The patient has some redness of his lower extremity on the right. This is concerning for cellulitis given his history. He also has a moderate productive sounding cough present. Chest x-ray is concerning for pneumonitis. He was treated with the above antibiotics. He will need further management in the hospital. He is hemodynamically stable at this time. Consultation: A consultation was placed with the hospitalist, Dr. Love. The case was discussed and diagnostics were reviewed. The patient was evaluated in the ER for further treatment. Medication Reconcilliation Current Medication List: was personally reviewed by me Blood Pressure Screening Patient's blood pressure: Elevated blood pressure Referred to Hospitalist Consults Time Called: 2244 Consulting Physician: Dr. Love [facility] Hospitalist Returned Call: 2244 I discussed the patients case with Dr. Love [facility] Hospitalist. She understands the patients condition and agrees to accept the patient. The patient will be evaluated for further management and care. Impression Primary Impression: Weakness Additional Impressions: Pneumonia Lower extremity cellulitis Scribe Attestation The scribe's documentation has been prepared under my direction and personally reviewed by me in its entirety. I confirm that the note above accurately reflects all work, treatment, procedures, and medical decision making performed by me. Departure Information Dispostion Being Evaluated By Hospitalist Referrals Luis Azevedo M.D. (PCP) Patient Instructions My [facility] Problem Qualifiers
[2018-05-05] MEDS ORDERED: ALBUT/IPRATROP 3MG/0.5MG NEB 3 ML VIAL INH SCH (01:00)
[2018-05-05] MEDS ORDERED: ACETAMINOPHEN 325 MG TAB PO STA (01:00)
[2018-05-05] MEDS ORDERED: ACETAMINOPHEN 325 MG TAB ONE (01:20)
[2018-05-05] MEDS ORDERED: LEVOFLOXACIN CONSULT ACTIVE PRN (02:00)
[2018-05-05] MEDS ORDERED: VANCOMYCIN IV 2,000 MG in SODIUM CHLORIDE 0.9% 500ML 500 ML IV ONE (02:00)
[2018-05-05] MEDS: ALBUMIN HUMAN 25% 12.5 GM/50 ML VIAL IV SCH ×2 (02:13→08:02)
[2018-05-05] MEDS ORDERED: PANTOprazole SOD 40 MG TAB PO ONE (02:30)
[2018-05-05] MEDS: CARVEDILOL 3.125 MG TAB PO SCH ×3 (03:01→20:55)
[2018-05-05] MEDS: PIPERACILL/TAZOBAC IV 3.375 GM in DEXTROSE 5% 100ML 100 ML IV SCH ×3 (04:20→19:37)
[2018-05-05 06:53] LABS: HEMATOCRIT 27.1 % (42-52); MEAN CELL VOLUME 102.7 fL (80-100); MEAN CORPUSCULAR HEMOGLOBIN 34.1 pg (25-34); MEAN CORPUSCULAR HGB CONC 33.2 g/dl (32-36); MEAN PLATELET VOLUME 9.2 fL (7.4-10.4); PLATELET COUNT 116 K/uL (130-400); RED CELL DISTRIBUTION WIDTH CV 17.7 % (11.5-14.5); RED CELL DISTRIBUTION WIDTH SD 66.4 fL (36.4-46.3)
[2018-05-05 07:05] LABS: INR 1.8 (0.9-1.1)
[2018-05-05 07:26] LABS: BASO % 0.1 %; BASO ABS # 0.02 K/uL (0-0.2); EOS ABS # 0.16 K/uL (0-0.5); IG# 0.07 K/uL (0.00-0.02); LYMPH % 10.2 %; LYMPH ABS # 1.58 K/uL (1.2-3.4); MONO ABS # 1.24 K/uL (0.11-0.59); NEUT % 80.2 %; NEUT ABS # 12.43 K/uL (1.4-6.5)
--- NOTE | 2018-05-05 07:28 | Family Medicine Progress Note ---
Progress Note Date of Service May 05, 2018. Subjective Pt evaluation today including: conversation w/ patient, physical exam, lab review, review of inpatient medication list Pain: Patient reporting moderate pain in his legs bilaterally PO Intake: Tolerating well Voiding: no voiding problems Patient c/o moderate lower leg pain bilaterally this morning. His legs have become increasingly swollen in the past few days. Constitutional: No fever, No chills Respiratory: + cough, + sputum, + wheezing, + shortness of breath, + dyspnea on exertion, + dyspnea at rest, No hemoptysis Cardiovascular: + edema, No chest pain Abdomen: + pain Musculoskeletal: + swelling, + calf pain (bilaterally, related to swelling) Neurologic: + weakness Psychiatric: + anhedonism Endo: + fatigue Skin: + new/changing skin lesions (ulcer on back of left leg, increasing swelling in legs bilaterally) All Other Systems: Reviewed and Negative Medications Current Inpatient Medications Medications (Trade) Dose Ordered Sig/Franklyn Route Start Time Stop Time Status Last Admin Dose Admin Piperacillin Sod/ Tazobactam Sod 3.375 gm/Dextrose 115 ml @ 28.75 mls/ hr Q8H IV 05/05/18 04:00 05/12/18 03:59 05/05/18 04:20 28.75 MLS/HR Miscellaneous Information (Consult) 1 ea UD PRN N/A 05/04/18 23:30 06/03/18 23:29 Vancomycin HCl (Consult) 1 ea UD PRN N/A 05/04/18 23:30 06/03/18 23:29 Ondansetron HCl (Zofran Inj) 4 mg Q6H PRN IV 05/05/18 00:15 06/04/18 00:14 Levofloxacin 750 mg/Prmx 150 ml @ 100 mls/hr Q48H IV 05/06/18 23:00 05/13/18 22:59 Methylprednisolone Sodium Succinate 80 mg/Syringe 1.28 ml @ 1.5 mls/min DAILY IV 05/05/18 09:00 06/04/18 08:59 Albumin Human (Albumin 25%) 12.5 gm DAILY IV 05/05/18 01:00 05/08/18 00:59 05/05/18 02:13 12.5 GM Carvedilol (Coreg Tab) 3.125 mg BID PO 05/05/18 01:00 06/04/18 00:59 8/1/18 03:01 3.125 MG Lactulose (Chronulac Syrup) 20 gm TID PRN PO 05/05/18 09:00 06/04/18 08:59 Ergocalciferol (Vitamin D Cap) 50,000 interunit Fr@0900 PO 05/07/18 09:00 06/06/18 08:59 Midodrine (Proamatine Tab) 5 mg 0800,1200,1600 PO 05/05/18 08:00 06/04/18 07:59 Pantoprazole Sodium (Protonix Tab) 40 mg BID PO 05/05/18 09:00 06/04/18 08:59 Levofloxacin (Consult) 1 ea UD PRN N/A 05/05/18 02:00 06/04/18 01:59 Salmeterol Xinafoate/ Fluticasone (Advair Diskus 500/50 Inh) 1 puff BID INH 05/05/18 09:00 06/04/18 08:59 Albuterol/ Ipratropium (Combivent Respimat Inh) 1 puffs QID PRN INH 05/05/18 02:30 06/04/18 02:29 Objective Vital Signs Date Time Temp Pulse Resp B/P (MAP) Pulse Ox O2 Delivery O2 Flow Rate FiO2 05/05/18 03:58 36.4 87 22 127/54 (78) 92 Nasal Cannula 3.0 05/05/18 01:30 Nasal Cannula 4.0 05/05/18 01:27 36.4 84 22 125/57 92 Nasal Cannula 4.0 05/05/18 01:00 85 18 135/59 90 05/05/18 00:08 85 05/05/18 00:00 84 16 136/59 91 05/04/18 23:29 134/60 05/04/18 23:00 82 15 91 Nasal Cannula 4.0 05/04/18 21:45 85 135/50 93 Nasal Cannula 4.0 05/04/18 20:34 87 05/04/18 20:29 94 Nasal Cannula 4.0 05/04/18 20:28 36.8 88 19 138/58 94 Nasal Cannula 4.0 05/04/18 20:22 94 Nasal Cannula 4.0 Physical Exam General Appearance: WD/WN, no apparent distress Eyes: EOMI ENT: hearing grossly normal Neck: no carotid bruits, trachea midline Respiratory/Chest: no respiratory distress, no accessory muscle use, + decreased breath sounds, + crackles (bibasilar), + wheezing (diffuse, expiratory ) Cardiovascular: regular rate, rhythm, + systolic murmur Abdomen: + distended, + tenderness Extremities: + pedal edema (bilaterally 2+ to mid-calf), + swelling, + pertinent finding (chronic venous stasis with edema) Neurologic/Psychiatric: alert, oriented x 3 Skin: + pertinent finding (small 1.5 cm weeping ulcer on posterior left leg. ) Laboratory Results Last Resulted 05/05/18 06:41 Red Blood Count 2.64, Mean Corpuscular Volume 102.7, Mean Corpuscular Hemoglobin 34.1, Mean Corpuscular Hemoglobin Concent 33.2, Mean Platelet Volume 9.2, Neutrophils (%) (Auto) 80.2, Lymphocytes (%) (Auto) 10.2, Monocytes (%) ( Auto) 8.0, Eosinophils (%) (Auto) 1.0, Basophils (%) (Auto) 0.1, Neutrophils # ( Auto) 12.43, Lymphocytes # (Auto) 1.58, Monocytes # (Auto) 1.24, Eosinophils # ( Auto) 0.16, Basophils # (Auto) 0.02 Last Resulted 05/05/18 06:41 Past 24 Hours Test 05/04/18 20:33 05/05/18 06:41 Range/Units Creatine Kinase MB 3.0 0.5-3.6 ng/ml Creatine Kinase MB Ratio 3.3 H 0-3.0 Prothromb Time International Ratio 1.6 H 1.8 H 0.9-1.1 Prothrombin Time 16.9 H 18.9 H 9.0-12.0 SECONDS Total Creatine Kinase 92 39-308 U/L Troponin I < 0.015 0-0.045 ng/ml Assessment and Plan 63 year old male with a PMH of decompensated cirrhosis, CHF, COPD, Atrial fibrillation, HLD, HTN and stage 4 CKD that presented to [facility] with worsening fatigue and productive cough. Hospital acquired pneumonia, COPD exacerbation - CXR showed L>R bibasilar opacities - levaquin and zosyn given in ED - added vanc for hospital pneumonia coverage - sputum cultures pending - continue home inhalers, patient does not want duonebs, hold home inhalers for now - on 3L NC, wears 2LNC at night at home - IV solumedrol 80mg - monitor WCC 20-->15 DOMINIQUE on CKD stage 4 likely secondary to prerenal azotemia - don't suspect hepatorenal syndrome at this time though recently diagnosed with hepatorenal syndrome and put on midodrine, albumin and octreotide - hold lasix - 25% albumin x 1 bottle given - UA negative - continue Vit D - Cr 2.6-->2.48 Decompensated Cirrhosis likely secondary to alcoholic hepatitis - no official biopsy performed per overnight team - grade 1 esophageal varices on recent EGD, will restart coreg at 3.125 bid for afib and portal hypertension - negative diagnostic paracentesis last admission, plan for therapeutic paracentesis on Thursday - follows with Dr. Proctor at [place] - INR was elevated at 1.6 on admission, repeat today 1.8 - Consult GI to determine if paracentesis can be performed earlier - MELD score of 26, with 20% 3 month mortality - low sodium renal diet - started lactulose and restarted coreg, continue midodrine Elevated ammonia level and mild confusion, likely hepatic encephalopathy - 30ml PO tid of lactulose and titrate to 2-3 soft stools per day H/O ulcerated gastric polyps and grade 1 esophageal varices - continue omeprazole 20mg bid - no further anticoagulation due to risk for recurrent GI bleed Paroxysmal afib - hold off on anticoagulation due to recent GI bleed - restarted coreg to help control HR - continue amiodarone Hyperlipidemia - statin stopped due to liver disease Hyperkalemia - hold PO potassium - no significant EKG changes - continue to monitor, K+ 5.6-->5.3 today Diet - low fat, low salt diet - nutrition consult DVT prophylaxis - hold off on chemical anticoagulation due to recent GI bleed - hold off on mechanical SCD's due to lower extremity edema Dispo: med/surg, lives with Code: DNR Resident Tracking Resident Involvement: Resident Care Provided Care Provided: Adult Hospital Medicine Reviewed: Pt Seen/Exam by Me History breathing better worried about his ascites Constitutional: denies: fever Cardiovascular: denies chest pain General Appearance: no apparent distress Respiratory: crackles (more on right lower lung), rhonchi Cardiovascular: regular rate, rhythm Gastrointestinal: distended Neurologic/Psychiatric: alert, oriented x 3 Skin Characteristics: warm/dry Assessment/Plan Resident Physician Supervision Note: I independently interviewed and examined the patient and verified the augustine history and physical, reviewed labs and image studies, discussed the case with the resident Dr. Carreno and agree with the findings and care plan.
[2018-05-05 07:29] LABS: ALBUMIN 2.3 gm/dl (3.4-5.0); CALCIUM 7.9 mg/dl (8.5-10.1); CREATININE 2.48 mg/dl (0.60-1.40); POTASSIUM 5.3 mmol/L (3.5-5.1)
[2018-05-05 07:37] LABS: TOTAL PROTEIN 5.2 gm/dl (6.4-8.2)
[2018-05-05] MEDS: FLUTICASONE/SALMETEROL (ADVAIR) 500/50 INH 14 PUFF INH SCH ×2 (07:42→20:55)
[2018-05-05] MEDS: METHYLPREDNISOLONE IV 80 MG in SYRINGE 0 ML IV SCH (07:42)
[2018-05-05] MEDS: PANTOprazole SOD 40 MG TAB PO SCH ×2 (07:43→20:55)
[2018-05-05] MEDS: MIDODRINE 2.5 MG TAB PO SCH ×3 (07:43→15:57)
--- NOTE | 2018-05-05 08:41 | Pharmacy Progress Note ---
Pharmacy Abx Initial Consult Date of Service May 05, 2018. Pharmacy Dosing Scope Date of Consult: 05/04/18 Consultation requested by: Dr. Crouch Pharmacy is consulted to initiate Vancomycin/Zosyn/Levaquin IV dosing therapy, order appropriate labs and adjust drug dose/frequency. Subjective The patient is a 63 year old male admitted on May 05, 2018 at 00:52. Objective Height (Feet): 6 Height (Inches): 2.00 Weight (Kilograms): 104.900 (BMI 29.7) Vital Signs (Past 12Hrs) Vital Signs Past 12 Hours Date Time Temp Pulse Resp B/P (MAP) Pulse Ox O2 Delivery O2 Flow Rate FiO2 05/05/18 08:00 36.5 79 18 101/55 (70) 90 Nasal Cannula 3.0 05/05/18 03:58 36.4 87 22 127/54 (78) 92 Nasal Cannula 3.0 05/05/18 01:30 Nasal Cannula 4.0 05/05/18 01:27 36.4 84 22 125/57 92 Nasal Cannula 4.0 05/05/18 01:00 85 18 135/59 90 05/05/18 00:08 85 05/05/18 00:00 84 16 136/59 91 05/04/18 23:29 134/60 05/04/18 23:00 82 15 91 Nasal Cannula 4.0 05/04/18 21:45 85 135/50 93 Nasal Cannula 4.0 Lab Results (24Hrs) Laboratory Tests (24 Hours) Test 05/04/18 20:33 05/05/18 06:41 Total Creatine Kinase 92 U/L (39-308) Lactic Acid Level 1.5 mmol/L (0.4-2.0) White Blood Count 15.50 K/uL (4.8-10.8) H Red Blood Count 2.64 M/uL (4.7-6.1) L Hemoglobin 9.0 g/dL (14.0-18.0) L Hematocrit 27.1 % (42-52) L Mean Corpuscular Volume 102.7 fL (80-100) H Mean Corpuscular Hemoglobin 34.1 pg (25-34) H Mean Corpuscular Hemoglobin Concent 33.2 g/dl (32-36) Platelet Count 116 K/uL (130-400) L Mean Platelet Volume 9.2 fL (7.4-10.4) Neutrophils (%) (Auto) 80.2 % Lymphocytes (%) (Auto) 10.2 % Monocytes (%) (Auto) 8.0 % Eosinophils (%) (Auto) 1.0 % Basophils (%) (Auto) 0.1 % Neutrophils # (Auto) 12.43 K/uL (1.4-6.5) H Lymphocytes # (Auto) 1.58 K/uL (1.2-3.4) Monocytes # (Auto) 1.24 K/uL (0.11-0.59) H Eosinophils # (Auto) 0.16 K/uL (0-0.5) Basophils # (Auto) 0.02 K/uL (0-0.2) Item Value Date Time Creatinine 2.48 mg/dl H 05/05/18 0641 Est Creatinine Clear Calc Drug Dose 38.9 ml/min 05/05/18 0641 Micro Results Date/Time Source Procedure Growth Status 05/04/18 21:46 Blood Blood Culture Pending Received 05/04/18 20:33 Blood Blood Culture Pending Received 05/05/18 02:00 Nasal MRSA DNA Surveillance Screen - Final Specimen Negative for MRSA by DNA Probe Complete Risk Factors for Resistance * Hospitalization for 48 hours or more within the past 90 days * Antimicrobial use within the last 90 days Rocephin Assessment & Plan Assessment 63 year old male has been feeling weak over the last several weeks. Has decreased appetite/productive cough (white/yellow sputum) x 3 weeks. Had recent hospital stay for acute blood loss secondary to esophageal varicies and decompensated cirrhosis. Has swelling in lower extremities that has gotten worse over the last few days. CXR shows bibasilar opacities left side greater than right. Plan Vancomycin/Zosyn/Levaquin for treatment of HCAP Vancomycin IV * Estimated Pkinetics: Vd 0.7L/kg; Cristino ~.037 hr-1; T1/2~18.7 hr; CrCl 38.9 * Loading dose: 2000 mg (~20 mg/kg) * Maintenance dose: 1500 mg IV (~14.4 mg/kg) every 24 hours * Goal trough level for pneumonia : 15 to 20 mcg/mL * Trough level ordered for 05/07/18 @ 2330 * Patients baseline Cr is ~2.0 (over the last 3 months). Will continue to monitor renal function and adjust dosing frequency if necessary. Piperacillin/tazobactam * 4.5 g bolus administered over 30 minutes, then 3.375 g IV extended infusion every 8 hours for CrCl greater than 20 mL/min OR every 12 hours for CrCl 20 mL/ min or less and dialysis. Patient also on Levaquin Pharmacy will continue to follow and will adjust dose/frequency as necessary. Thank you.
[2018-05-05] MEDS: HYDROmorphone INJ 1 MG/ML SYR IV PRN ×2 (08:58→23:43)
[2018-05-05] MEDS ORDERED: LACTULOSE SYRUP 20 GM/30 ML UDC PO PRN (09:00)
[2018-05-05] MEDS ORDERED: AMIODARONE 200 MG TAB PO ONE (14:30)
--- NOTE | 2018-05-05 21:05 | DIAGNOSTIC IMAGING REPORT ---
LIMITED ABDOMINAL ULTRASOUND FOR ASCITES EVALUATION. CLINICAL HISTORY: Cirrhosis. Ascites. COMPARISON STUDY: 04/05/2018 FINDINGS: A four-quadrant survey was performed. Ascitic fluid is visualized within each quadrant. There is a moderate volume of ascites, similar to the prior April 05, 2018 study. IMPRESSION: Moderate volume of ascites, similar to the prior April 05, 2018 study. Electronically signed by: Juan Luis Aguilar M.D. 05/05/2018 9:04 PM Dictated Date/Time: 05/05/2018 9:02 PM
--- NOTE | 2018-05-05 21:10 | DIAGNOSTIC IMAGING REPORT ---
BILIARY ULTRASOUND CLINICAL HISTORY: elevated WBC, cirrhosis, jaundice COMPARISON STUDY: 04/03/2018 FINDINGS: The pancreas was not well-visualized. No definite pancreatic masses were evident. The liver has a cirrhotic morphology. There is ascites. There is a 6.6 cm upper pole right renal cyst. There is no hydronephrosis. There is no ductal dilatation. There are calculi and sludge within the gallbladder. There is no gallbladder wall thickening. The common bile duct is dilated measuring 12 mm. IMPRESSION: 1. Cholelithiasis 2. Cirrhotic morphology of the liver 3. Ascites 4. 12 mm common bile duct Electronically signed by: Juan Luis Aguilar M.D. 05/05/2018 9:09 PM Dictated Date/Time: 05/05/2018 9:06 PM
--- NOTE | 2018-05-05 21:12 | DIAGNOSTIC IMAGING REPORT ---
DUPLEX ULTRASOUND THE PORTAL AND HEPATIC VEINS. CLINICAL HISTORY: cirrhosis COMPARISON STUDY: No previous studies for comparison. FINDINGS: Grayscale, color flow, and spectral waveform analysis was performed. The liver has a cirrhotic morphology. There is ascites. The portal veins are patent with normal directional flow. Hepatic veins are patent with normal directional flow. Hepatic arteries are patent. The IVC is patent. The portal splenic confluence could not be visualized due to bowel gas shadowing IMPRESSION: 1. No evidence of portal vein or hepatic vein thrombosis. 2. Normal directional flow within the portal and hepatic veins. Electronically signed by: Juan Luis Aguilar M.D. 05/05/2018 9:11 PM Dictated Date/Time: 05/05/2018 9:09 PM
--- NOTE | 2018-05-05 21:58 | GASTROINTESTINAL CONSULTATION ---
DATE OF CONSULTATION: 05/05/2018 CHIEF COMPLAINT: Fatigue, alcoholic liver disease, abnormal LFTs, abdominal distention, leukocytosis. HISTORY OF PRESENT ILLNESS: Mr. Crowley is a 63-year-old white male with a history of alcoholic hepatitis and cirrhosis recently evaluated this week by Dr. Rosemarie lockhart at [facility] for liver transplantation consideration. The patient was admitted last evening with complaints of increasing fatigue, cough. The patient has also had a diminished appetite and presented to the Emergency Room by EMS. In addition, lower extremity swelling and increased abdominal girth with shortness of breath was reported. The patient denies any melena, bright red blood per rectum, hematemesis, coffee-ground emesis, or rigors or shaking chills, but is unaware if he had a fever at home. Patient had a recent hospitalization with decompensated liver disease, anemia, grade 1 esophageal varices, BELL positive and smooth muscle antibody positivity that apparently upon repeat testing were negative. During the hospitalization, he developed hepatorenal syndrome with worsening kidney function. His last alcohol intake was March of this year. PAST MEDICAL HISTORY: Significant for acute renal failure, possible hepatorenal syndrome type 2, anemia, atrial fibrillation, autoimmune hepatitis/alcoholic hepatitis, congestive heart failure, COPD, electrolyte abnormalities, abnormal liver tests, and prior episode of SIRS and sepsis. HOME MEDICATIONS: Included vitamin D, fluticasone, salmeterol, midodrine, omeprazole, and potassium replacement. ALLERGIES: HE IS ALLERGIC TO STRAWBERRIES, but reports no medication allergies. FAMILY HISTORY: Noncontributory. SOCIAL HISTORY: The patient is a former smoker, , and is employed. REVIEW OF SYSTEMS: Otherwise noncontributory based on 13-point exam except for mentioned above. PHYSICAL EXAMINATION: VITAL SIGNS: This afternoon shows a temperature of 36.4, blood pressure 107/53, respirations 18, heart rate 71. He is 92% on 3 liters. GENERAL: The patient is awake, alert, and oriented to year, place, month and president, but could not initially recall the community service officer. There is no asterixis at this time. HEENT: Sclerae are icteric. The oral mucosa is moist. NECK: There is no cervical or supraclavicular adenopathy. I do not appreciate thyromegaly. HEART: Normal S1, S2. LUNGS: Overall clear to auscultation, although poor effort is noted and there are perhaps diminished breath sounds at the bases. There are no wheezes or crackles, however. ABDOMEN: Protuberant but not tense. There is no tenderness noted. There are positive bowel sounds. I do not appreciate any hepatic masses by palpation. I do not appreciate a spleen tip. There are positive bowel sounds, no rebound or guarding. I do not appreciate caput. EXTREMITIES: Show evidence of chronic venous stasis with a quarter-sized wound on the right ankle and buttocks sacral area with a small erythematous quarter sized area for which the overlying skin is intact. There is +1 to +2 pitting edema bilaterally. RECTAL: Deferred. MEDICATIONS: Include vitamin D, levofloxacin, amiodarone, vancomycin, methylprednisolone, lactulose, pantoprazole, midodrine, Zosyn, albumin, Zofran p.r.n. LABORATORY STUDIES: On admission, white count 20.8, hemoglobin 11.1, MCV 103.4, platelets 165,000, the RDW is expanded at 17.6. Patient's repeat white count today was down to 15.5, hemoglobin 9.0, MCV 102.7, 116,000 platelets. Serum chemistry on admission, sodium 133, potassium 5.6, today 132 and potassium 5.3, BUN and creatinine were 47 and 2.6 on admission and today 48 and 2.48. Lactate level 1.5, magnesium 2.0, total bilirubin yesterday mostly indirect, was 7.0 with a direct fraction of 2.6, AST 64, ALT 36, alkaline phosphatase 213, ammonia 65.5. CKs are negative. TSH normal 1.98, lipase of 170 and normal, albumin is low at 2.8. Repeat LFTs today show bilirubin down to 6.2, AST 54, ALT 30, and alkaline phosphatase down to 171. Coagulation status, his INR is 1.6 on admission and currently 1.8. IMAGING STUDIES: Chest x-ray showed emphysema with chronic interstitial coarsening and subsegmental left greater than right bibasilar opacity suggesting atelectasis or pneumonitis. IMPRESSION AND PLAN: Patient with history of alcoholic hepatitis. Initial thoughts of autoimmune markers, although apparently repeat studies did not reveal this. The patient's last EGD at [facility] performed by Dr. Johnston showed grade 1 varices in the middle third of the esophagus, sessile polyps with no bleeding but ulcerated in the gastric body, evidence of portal hypertensive gastropathy was found in the entire stomach. Also a question of a candidal esophagitis. At that time, the patient had melena. The patient had scheduled for high volume paracentesis with albumin replacement on Thursday as an outpatient. Given these current changes, his abdominal exam, and some limitations with lung excursion, I would obtain an abdominal ultrasound tonight along with portal Dopplers and assess if there was significant ascites for which he would benefit from paracentesis, both diagnostic and therapeutic. Portal Dopplers would be helpful to exclude any portal vein thrombosis. Currently, on antibiotics for a variety of reasons that include pneumonia that may be hospital acquired and possibly the lower extremity wound from venous stasis. Would continue his current therapies. Monitor white count and hemoglobin. A paracentesis if performed may be unreliable to exclude SBP given the antibiotics, but nevertheless should be performed for culture and for a cell differential. Would monitor potassium, renal function, hemoglobin, and if high volume paracentesis performed, replacement with albumin 10 grams of salt poor albumin for each liter removed. All questions answered to the patient. Recommendations also discussed with Dr. Carreno from the primary team. SUNG
[2018-05-06] VITALS (7 sets, daily range): BP systolic 89–108; BP diastolic 41–50; PULSE 60–77; TEMP 36.3–36.6; O2SAT 90–94
[2018-05-06] MEDS ORDERED: VANCOMYCIN IV 1,500 MG in SODIUM CHLORIDE 0.9% 500ML 500 ML IV SCH ×2
[2018-05-06] MEDS: PIPERACILL/TAZOBAC IV 3.375 GM in DEXTROSE 5% 100ML 100 ML IV SCH ×3 (04:13→20:03)
[2018-05-06 06:43] LABS: CREATININE 2.52 mg/dl (0.60-1.40)
[2018-05-06 07:22] LABS: BASO % 0.1 %; BASO ABS # 0.01 K/uL (0-0.2); HEMATOCRIT 29.1 % (42-52); HEMOGLOBIN 9.6 g/dL (14.0-18.0); IG# 0.06 K/uL (0.00-0.02); LYMPH % 2.6 %; LYMPH ABS # 0.41 K/uL (1.2-3.4); MEAN CELL VOLUME 103.9 fL (80-100); MEAN CORPUSCULAR HEMOGLOBIN 34.3 pg (25-34); MEAN PLATELET VOLUME 10.1 fL (7.4-10.4); MONO % 8.2 %; MONO ABS # 1.27 K/uL (0.11-0.59); NEUT % 88.7 %; NEUT ABS # 13.75 K/uL (1.4-6.5); PLATELET COUNT 108 K/uL (130-400); RED CELL DISTRIBUTION WIDTH CV 17.4 % (11.5-14.5); RED CELL DISTRIBUTION WIDTH SD 65.6 fL (36.4-46.3)
[2018-05-06 07:28] LABS: ALBUMIN 2.2 gm/dl (3.4-5.0); CALCIUM 7.9 mg/dl (8.5-10.1); CREATININE 2.44 mg/dl (0.60-1.40); POTASSIUM 5.6 mmol/L (3.5-5.1); TOTAL PROTEIN 5.3 gm/dl (6.4-8.2)
[2018-05-06] MEDS: MIDODRINE 2.5 MG TAB PO SCH ×3 (08:47→15:45)
[2018-05-06 09:16] LABS: INR 1.7 (0.9-1.1)
--- NOTE | 2018-05-06 10:22 | Clinical Documentation Query ---
QUERY 1 OF [address] ALLEN, In your clinical opinion is this patient being managed for: (x ) possible gram negative pneumonia ( ) Not Agree ( ) Other explanation of clinical findings (No explanation is considered a No Response) ( ) Unable to determine ( ) Need to Discuss (Phone CDS or qliq) (No discussion is considered a No Response) The medical record reflects the following clinical findings, treatment, and risk factors. Clinical Indicators:63 yo male presenting with productive cough for white/yellow sputum x 3 weeks. WBC 20.85, neut 17.20. Treatment: NSS bolus, IV zosyn, IV levaquin, IV vancomycin, O2 support Risk Factors: age, cirrhosis, recent hospital stay, COPD First suggested as a category of pneumonia in 2005 by the [place] [employer] and the Infectious Diseases Society of [place], HCAP is defined as category of pneumonia in individuals with recent close contact with the healthcare system (hospital, Senior Care, extended care facility, cancer treatment center, dialysis center, outpatient surgery center). HCAP is more likely to be caused by bacteria resistant to first line antibiotics, such as MRSA and Pseudomonas. Symptoms: severe cough producing yellow/green mucus or blood, fever and shaking chills, shortness of breath, pleuritic chest pain, and confusion, tachypnea, tachycardia, elevated WBC. The elderly or demented patient may present with atypical symptoms. Risk: immunosuppression, inpatient hospitalization for 2 or more days within 90 days of admission, residence in a [place] or long-term care facility, outpatient therapy within 30 days of admission, outpatient wound care within 30 days of admission, exposure to a family member with known multi-drug resistant pathogens. Treatment: Patients with HCAP are more likely than those with CAP to receive inappropriate antibiotics that do not target the bacteria causing their disease. In 2005, ATS and IDSA published guidelines suggesting antibiotics specifically for HCAP. The guideline recommended combination therapy to cover both Pseudomonas and MRSA (cefepime, ceftazidime, imipenem, or piperacillin-tazobactam + ciprofloxacin, levofloxacin, amikacin, gentamycin or tobramycin + vancomycin). Prognosis: HCAP seems to have fatality rates worse than CAP but less severe than VAP and may be influenced by underlying co-morbid conditions. QUERY 2 OF 3 In your clinical opinion is this patient being managed for: ( ) Acute hepatic encephalopathy ( ) Chronic hepatic encephalopathy ( x ) Not Agree: patient has hx of hepatic encephalopathy but has been fully oriented on every visit I have had with him ( ) Other explanation of clinical findings (No explanation is considered a No Response) ( ) Unable to determine ( ) Need to Discuss (Phone CDS or qliq) (No discussion is considered a No Response) The medical record reflects the following clinical findings, treatment, and risk factors. Clinical Indicators: Documentation in the clinical record (from the attending sign off note) indicates mild hepatic encephalopathy. For accurate coding please indicate acuity of this diagnosis Treatment: does not take chronic lactulose, ammonia level 65.5, started on lactulose Risk Factors: pneumonia, cirrhosis, DOMINIQUE/CKD QUERY 3 OF 3 In your clinical opinion is this patient being managed for: (x ) Moderate protein-calorie malnutrition ( ) Severe protein-calorie malnutrition ( ) Not Agree ( ) Other explanation of clinical findings (No explanation is considered a No Response) ( ) Unable to determine ( ) Need to Discuss (Phone CDS or qliq) (No discussion is considered a No Response) The medical record reflects the following clinical findings, treatment, and risk factors. Clinical Indicators:Dietary consult indicates pt with bilateral temporal wasting, buccal wasting, loss of muscle mass seen in the clavicle bone region. He has significant fluid retention in LE and abdomen. Pt reports "I'm not hungry--only consumed 25% of lunch." Wt not accurate assessment tool d/t fluctuations related to edema/ascites from cirrhosis Treatment: assist with meals, lab and wt monitoring, I/O, CBE bid mixed with ice cream Risk Factors: cirrhosis, pneumonia, COPD, CKD Moderate Malnutrition Criteria: (2 criteria needed) Energy intake: <75% of estimated energy requirement for > 7 days Wt loss: 1-2% in 1 wk, 5% in 1 month, or 7.5% in 3 months Body fat: mild loss of SQ fat from the orbits, triceps or fat overlying the ribs Muscle mass: mild muscle wasting at the temples, clavicles, shoulders, interosseous spaces, scapula, thigh, calf Fluid accumulation: mild localized or generalized edema of the extremities, vulva, scrotum-wt loss may be masked by edema Daub Color Mixer strength: Not applicable Severe Malnutrition Criteria: (2 criteria needed) Energy intake: <50% of estimated energy requirement for > 5 days Wt loss: 1-2% in 1 wk, 5% in 1 month, or 7.5% in 3 months Body fat: moderate loss of SQ fat from the orbits, triceps or fat overlying the ribs Muscle mass: moderate muscle wasting at the temples, clavicles, shoulders, interosseous spaces, scapula, thigh, calf Fluid accumulation: moderate to severe localized or generalized edema of the extremities, vulva, scrotum-wt loss may be masked by edema Please clarify and document your clinical opinion in the progress notes and discharge summary. Terms such as "probable", "suspected", "likely", "questionable", "possible", or "still to be ruled out" are acceptable. IF IN AGREEMENT, YOU MUST DOCUMENT ABOVE DIAGNOSTIC STATEMENT IN DAILY PROGRESS NOTES AND DISCHARGE SUMMARY. This document is not part of the patient's record. Thank You, Liana Napoles RN [phone]
[2018-05-06] MEDS: FLUTICASONE/SALMETEROL (ADVAIR) 500/50 INH 14 PUFF INH SCH ×2 (11:00→20:50)
[2018-05-06] MEDS: METHYLPREDNISOLONE IV 80 MG in SYRINGE 0 ML IV SCH (11:01)
[2018-05-06] MEDS: PANTOprazole SOD 40 MG TAB PO SCH ×2 (11:01→20:50)
[2018-05-06] MEDS: AMIODARONE 200 MG TAB PO SCH (11:04)
[2018-05-06] MEDS: CARVEDILOL 3.125 MG TAB PO SCH ×2 (11:04→20:50)
[2018-05-06] MEDS: ALBUMIN HUMAN 25% 12.5 GM/50 ML VIAL IV SCH (11:07)
--- NOTE | 2018-05-06 11:16 | DIAGNOSTIC IMAGING REPORT ---
ULTRASOUND-GUIDED DIAGNOSTIC AND THERAPEUTIC PARACENTESIS: HISTORY: Ascites. Procedure: The procedure and its risks, benefits and alternatives were discussed with the patient and written informed consent was obtained. Preliminary ultrasound of the abdomen was performed to determine a safe needle entry site. The left lower quadrant was prepped and draped in the usual sterile fashion. 1% Lidocaine was used for local anesthesia. A paracentesis needle-sheath was inserted into the peritoneal space using ultrasound guidance. The needle was removed and the sheath was connected to tubing and a vacuum suction device. A total of 6 liters of yellow ascites was aspirated. The sheath was removed and a sterile dressing applied. The patient tolerated the procedure well and there were no immediate complications. IMPRESSION: Ultrasound-guided therapeutic and diagnostic paracentesis with aspiration of 6 liters of ascites. A total of 1 L was sent to the laboratory for further evaluation. Electronically signed by: Skyler Lamar M.D. 05/06/2018 11:14 AM Dictated Date/Time: 05/06/2018 11:14 AM
[2018-05-06] MEDS ORDERED: ALBUMIN HUMAN 25% 12.5 GM/50 ML VIAL IV SCH ×2 (16:00→19:00)
--- NOTE | 2018-05-06 16:51 | Family Medicine Progress Note ---
Progress Note Date of Service May 06, 2018. Subjective Pt evaluation today including: conversation w/ patient, conversation w/ family , physical exam, chart review, lab review, conversation w/ cognos consultant Pain: Improving pain in LE bilaterally from edema PO Intake: Tolerating well Voiding: no voiding problems Patient feels about the same as yesterday. He is eager for paracentesis today. Does report some blood at tip of penis after voiding, but states he thinks he cut himself on urinal Constitutional: No fever, No chills Respiratory: + cough, + sputum, + wheezing, + shortness of breath, + dyspnea on exertion, + dyspnea at rest Cardiovascular: + edema, No chest pain Abdomen: No pain, No nausea, No vomiting, No diarrhea Neurologic: + weakness Endo: + fatigue All Other Systems: Reviewed and Negative Medications Current Inpatient Medications Medications (Trade) Dose Ordered Sig/[place] Route Start Time Stop Time Status Last Admin Dose Admin Piperacillin Sod/ Tazobactam Sod 3.375 gm/Dextrose 115 ml @ 28.75 mls/ hr Q8H IV 05/05/18 04:00 05/12/18 03:59 05/06/18 12:11 28.75 MLS/HR Miscellaneous Information (Consult) 1 ea UD PRN N/A 05/04/18 23:30 06/03/18 23:29 Ondansetron HCl (Zofran Inj) 4 mg Q6H PRN IV 05/05/18 00:15 06/04/18 00:14 Levofloxacin 750 mg/Prmx 150 ml @ 100 mls/hr Q48H IV 05/06/18 23:00 05/13/18 22:59 Methylprednisolone Sodium Succinate 80 mg/Syringe 1.28 ml @ 1.5 mls/min DAILY IV 05/05/18 09:00 06/04/18 08:59 05/06/18 11:01 1.5 MLS/MIN Carvedilol (Coreg Tab) 3.125 mg BID PO 05/05/18 01:00 06/04/18 00:59 05/06/18 11:04 3.125 MG Lactulose (Chronulac Syrup) 20 gm TID PRN PO 05/05/18 09:00 06/04/18 08:59 Ergocalciferol (Vitamin D Cap) 50,000 interunit Fr@0900 PO 05/07/18 09:00 06/06/18 08:59 Midodrine (Proamatine Tab) 5 mg 0800,1200,1600 PO 05/05/18 08:00 06/04/18 07:59 05/06/18 15:45 5 MG Pantoprazole Sodium (Protonix Tab) 40 mg BID PO 05/05/18 09:00 06/04/18 08:59 05/06/18 11:01 40 MG Levofloxacin (Consult) 1 ea UD PRN N/A 05/05/18 02:00 06/04/18 01:59 Salmeterol Xinafoate/ Fluticasone (Advair Diskus 500/50 Inh) 1 puff BID INH 05/05/18 09:00 06/04/18 08:59 05/06/18 11:00 1 PUFF Albuterol/ Ipratropium (Combivent Respimat Inh) 1 puffs QID PRN INH 05/05/18 02:30 06/04/18 02:29 Hydromorphone HCl (Dilaudid Inj) 1 mg Q4H PRN IV 05/05/18 08:00 05/19/18 07:59 05/05/18 23:43 1 MG Amiodarone HCl (Cordarone Tab) 200 mg QAM PO 05/06/18 09:00 06/05/18 08:59 05/06/18 11:04 200 MG Objective Vital Signs Date Time Temp Pulse Resp B/P (MAP) Pulse Ox O2 Delivery O2 Flow Rate FiO2 05/06/18 16:30 36.5 66 18 89/43 (58) 93 Room Air 05/06/18 15:35 77 90 05/06/18 11:00 36.5 65 16 108/47 (67) 91 Nasal Cannula 3.0 05/06/18 08:00 Nasal Cannula 3.0 05/06/18 07:46 36.4 65 20 96/49 (65) 90 Nasal Cannula 3.0 05/06/18 04:09 36.6 66 20 106/50 (68) 92 Nasal Cannula 3.0 05/05/18 23:59 Nasal Cannula 3.0 05/05/18 23:39 109/52 (71) 05/05/18 23:36 36.3 68 18 95/48 (64) 89 Nasal Cannula 3.0 05/05/18 19:00 36.3 70 22 113/55 (74) 94 Nasal Cannula 3.0 Physical Exam General Appearance: WD/WN, no apparent distress Eyes: EOMI ENT: hearing grossly normal Neck: no adenopathy, no carotid bruits, trachea midline Respiratory/Chest: no respiratory distress, no accessory muscle use, + wheezing (diffuse, expiratory, improving) Cardiovascular: regular rate, rhythm, no murmur Abdomen: non tender, soft, + distended Extremities: + pedal edema (2+ bilaterally to calf) Neurologic/Psychiatric: alert, normal mood/affect, oriented x 3 Skin: + pertinent finding (quarter sized ulcer on posterior right calf. Sacral decubitus ulcer) Laboratory Results Last Resulted 05/06/18 05:56 Red Blood Count 2.80, Mean Corpuscular Volume 103.9, Mean Corpuscular Hemoglobin 34.3, Mean Corpuscular Hemoglobin Concent 33.0, Mean Platelet Volume 10.1, Neutrophils (%) (Auto) 88.7, Lymphocytes (%) (Auto) 2.6, Monocytes (%) ( Auto) 8.2, Eosinophils (%) (Auto) 0.0, Basophils (%) (Auto) 0.1, Neutrophils # ( Auto) 13.75, Lymphocytes # (Auto) 0.41, Monocytes # (Auto) 1.27, Eosinophils # ( Auto) 0.00, Basophils # (Auto) 0.01 Last Resulted 05/06/18 05:56 Past 24 Hours Test 05/06/18 08:58 Range/Units Prothromb Time International Ratio 1.7 H 0.9-1.1 Prothrombin Time 18.1 H 9.0-12.0 SECONDS Assessment and Plan 63 year old male with a PMH of decompensated cirrhosis, CHF, COPD, Atrial fibrillation, HLD, HTN and stage 4 CKD that presented to [facility] with worsening fatigue and productive cough. Hospital acquired (possibly gram negative) pneumonia, COPD exacerbation - CXR showed L>R bibasilar opacities - levaquin and zosyn given in ED - Discontinued vancomycin - sputum cultures pending - patient does not want duonebs as he feels they don't help, hold home inhalers for now - on 3L NC, wears 2LNC at night at home - IV solumedrol 80mg - monitor WCC stable at 15 DOMINIQUE on CKD stage 4 likely secondary to prerenal azotemia - don't suspect hepatorenal syndrome at this time though recently diagnosed with hepatorenal syndrome and put on midodrine, albumin and octreotide - continue to hold lasix - 25% albumin daily, extra doses today post-paracentesis - UA negative - continue Vit D - Cr 2.48-2.44 - Will order urine electrolytes for FeNa calculation Decompensated Cirrhosis likely secondary to alcoholic hepatitis - no official biopsy performed per overnight team - grade 1 esophageal varices on recent EGD, will restart coreg at 3.125 bid for afib and portal hypertension - negative diagnostic paracentesis last admission, awaiting results from paracentesis today - follows with Dr. Proctor at [facility]. Dr. Hopkins to reach out and discuss - INR was elevated at 1.6 on admission, today 1.7 - Successful paracentesis drawing off 6L of fluid today - MELD score of 26, with 20% 3 month mortality - low sodium renal diet - started lactulose and restarted coreg, continue midodrine - Discussed MRCP considering dilated ducts on US, however pt claustrophobic and Dr. Hopkins would like to avoid benzo. - Pt possibly for EUS tomorrow AM. NPO from midnight Elevated ammonia level and mild confusion, likely hepatic encephalopathy - 30ml PO tid of lactulose and titrate to 2-3 soft stools per day H/O ulcerated gastric polyps and grade 1 esophageal varices - continue omeprazole 20mg bid - no further anticoagulation due to risk for recurrent GI bleed Paroxysmal afib - hold off on anticoagulation due to recent GI bleed - restarted coreg to help control HR - continue amiodarone Hyperlipidemia - statin stopped due to liver disease Hyperkalemia - hold PO potassium - no significant EKG changes - continue to monitor, K+ stable at 5.6 Diet, possible moderate malnutrition - low fat, low salt diet - nutrition consult DVT prophylaxis - hold off on chemical anticoagulation due to recent GI bleed - hold off on mechanical SCD's due to lower extremity edema Dispo: med/surg, lives with Code: DNR Resident Tracking Resident Involvement: Resident Care Provided Care Provided: Adult Hospital Medicine Reviewed: Pt Seen/Exam by Me History breathing better Constitutional: denies: fever Cardiovascular: denies chest pain General Appearance: no apparent distress Respiratory: no respiratory distress, decreased breath sounds (base) Cardiovascular: regular rate, rhythm Neurologic/Psychiatric: alert, oriented x 3 Skin Characteristics: warm/dry Assessment/Plan Resident Physician Supervision Note: I independently interviewed and examined the patient and verified the augustine history and physical, reviewed labs and image studies, discussed the case with the resident Dr. Carreno and agree with the findings and care plan.
[2018-05-06 18:09] LABS: SODIUM RANDOM URINE < 5 mEq/L
[2018-05-06 19:47] LABS: OSMOLALITY,URINE 468 mOms/kg (500-800)
[2018-05-06] MEDS: LEVOFLOXACIN / D5W 750 MG in PREMIXED IN D5W 150 ML IV SCH (23:01)
[2018-05-07 03:26] VITALS: BP 105/55; PULSE 58; TEMP 36.4; O2SAT 93
[2018-05-07] MEDS: PIPERACILL/TAZOBAC IV 3.375 GM in DEXTROSE 5% 100ML 100 ML IV SCH ×3 (03:38→22:28)
[2018-05-07 03:59] LABS: HEMATOCRIT 29.2 % (42-52); HEMOGLOBIN 9.7 g/dL (14.0-18.0); MEAN CELL VOLUME 102.8 fL (80-100); MEAN CORPUSCULAR HEMOGLOBIN 34.2 pg (25-34); MEAN CORPUSCULAR HGB CONC 33.2 g/dl (32-36); RED CELL DISTRIBUTION WIDTH CV 17.1 % (11.5-14.5); RED CELL DISTRIBUTION WIDTH SD 64.2 fL (36.4-46.3); WHITE BLOOD COUNT 13.65 K/uL (4.8-10.8)
[2018-05-07 04:15] LABS: INR 1.6 (0.9-1.1)
[2018-05-07 04:27] LABS: MEAN PLATELET VOLUME 9.3 fL (7.4-10.4); PLATELET COUNT 95 K/uL (130-400)
[2018-05-07 04:30] LABS: ALBUMIN 2.2 gm/dl (3.4-5.0); CALCIUM 7.7 mg/dl (8.5-10.1); CREATININE 2.5 mg/dl (0.60-1.40); POTASSIUM 5.4 mmol/L (3.5-5.1); TOTAL PROTEIN 5.4 gm/dl (6.4-8.2)
--- NOTE | 2018-05-07 05:17 | GASTROENTEROLOGY PROGRESS NOTE ---
DATE: 05/06/2018 GASTROENTEROLOGY INPATIENT PROGRESS NOTE SUBJECTIVE: Chart reviewed, patient examined. The patient looks comfortable in the chair reading. He is awake, alert and oriented x3. He underwent a high volume paracentesis today with removal of 6 liters of fluid. The cell count showed clear fluid with a total white count of 82, 74% mononuclear. His laboratory today includes sodium of 134, which is slightly improved. The potassium has crept up to 5.6. BUN and creatinine show a BUN of 57, creatinine 2.44, total bilirubin 4.0, AST 52, alkaline phosphatase 165. These all showed downward trend. The patient reports no recent recurrent abdominal pain that would suggest a biliary source. CURRENT MEDICATIONS: Include vitamin D, levofloxacin and Zosyn, vancomycin has been discontinued. Amiodarone, he remains on methylprednisolone. He also is on lactulose, pantoprazole and reports only a single bowel movement. He has been on midodrine, carvedilol 3.125 twice daily. No diuretic therapy. Fluids yesterday show 2150 mL out. REVIEW OF SYSTEMS: Otherwise noncontributory based on 13-point exam except for mentioned above. He is tolerating oral intake. PHYSICAL EXAMINATION: VITAL SIGNS: Today afebrile 36.5, 89/43 blood pressure, respirations 18, pulse ox 93% on room air, heart rate 66. GENERAL: The patient is awake, alert and oriented x3. Sclerae are mildly icteric. Conjunctivae moist. Oral mucosa moist. HEART: Normal S1, S2. LUNGS: Decreased breath sounds at the bases, but no wheezes or rhonchi. ABDOMEN: Soft without evidence of tense ascites. There is no rebound or guarding. I do not appreciate abdominal masses. There are positive bowel sounds. EXTREMITIES: Showed changes of venous stasis with trace to +1 pitting edema bilaterally. RECTAL: Deferred. The patient's ultrasound last night suggested bile duct dilation. I reviewed prior reports of that are available in [place] and this seems to be a size that is slowly progressing, although there is no comment of bile duct stones. There are gallstones, although he is without evidence of biliary dilation. I made the following recommendations and spoke with the resident on service. Ideally, it would be helpful to know that the bile duct is free of any debris or filling defects; however, after further discussion with the patient. He is claustrophobic and therefore, MR and CT is not an option. I do not advocate the use of the sedative as this may cause cognitive function to be impaired. One other option is endoscopic ultrasound, but this is in the setting of declining liver function in the past, which may represent resolving acute alcoholic hepatitis and not necessarily an obstructive pattern. I therefore made the following recommendations, we will tentatively plan for an EUS, plus/minus ERCP tomorrow on Thursday based on whether his liver tests either rebound or remain stable in their decline. If, however, there is ongoing resolution of the numbers on Thursday morning, then we will continue to observe. His white count remains stable at 15.5. Will continue to follow with you. I did have an opportunity to speak with Dr. Houston, the refractory products supervisor at [place] who has seen the patient and patient prior to further transplant workup and potential listing must have 6 months total of sobriety, which places this sometime in September. Moreover, the patient does have other comorbidities including possible cor pulmonale, COPD and the renal function that will make transplant candidacy challenging. I would continue to refrain from the use of diuretic agents and manage this with albumin and we discussed the placement of albumin following the large volume paracentesis today and the plan to go albumin 12.5 grams q. 6 hours for 24 hours and monitor his urine output and renal function. In addition, it may be reasonable for nephrology to see the patient if this have to assess with the probable hepatorenal versus prerenal syndrome. All questions answered. SUNG
--- NOTE | 2018-05-07 07:12 | Family Medicine Progress Note ---
Progress Note Date of Service May 07, 2018. Subjective Pt evaluation today including: conversation w/ patient, physical exam, chart review, lab review, conversation w/ internal consultant Pain: Improving LE pain bilaterally PO Intake: Tolerating well Voiding: no voiding problems Patient reports he is feeling a little better after having fluid drained. He thinks his legs were getting better but are now swelling up again. He does report decreased discomfort in his abdomen Constitutional: No fever, No chills ENT: + trouble swallowing Respiratory: + cough, + sputum, + wheezing, + shortness of breath Abdomen: + diarrhea, No pain, No nausea, No vomiting Male : No dysuria Neurologic: No numbness/tingling Medications Current Inpatient Medications Medications (Trade) Dose Ordered Sig/[place] Route Start Time Stop Time Status Last Admin Dose Admin Piperacillin Sod/ Tazobactam Sod 3.375 gm/Dextrose 115 ml @ 28.75 mls/ hr Q8H IV 05/05/18 04:00 05/12/18 03:59 05/07/18 03:38 28.75 MLS/HR Miscellaneous Information (Consult) 1 ea UD PRN N/A 05/04/18 23:30 06/03/18 23:29 Ondansetron HCl (Zofran Inj) 4 mg Q6H PRN IV 05/05/18 00:15 06/04/18 00:14 Levofloxacin 750 mg/Prmx 150 ml @ 100 mls/hr Q48H IV 05/06/18 23:00 05/13/18 22:59 05/06/18 23:01 100 MLS/HR Methylprednisolone Sodium Succinate 80 mg/Syringe 1.28 ml @ 1.5 mls/min DAILY IV 05/05/18 09:00 06/04/18 08:59 05/06/18 11:01 1.5 MLS/MIN Carvedilol (Coreg Tab) 3.125 mg BID PO 05/05/18 01:00 06/04/18 00:59 05/06/18 20:50 3.125 MG Lactulose (Chronulac Syrup) 20 gm TID PRN PO 05/05/18 09:00 06/04/18 08:59 Ergocalciferol (Vitamin D Cap) 50,000 interunit Fr@0900 PO 05/07/18 09:00 06/06/18 08:59 Midodrine (Proamatine Tab) 5 mg 0800,1200,1600 PO 05/05/18 08:00 06/04/18 07:59 05/06/18 15:45 5 MG Pantoprazole Sodium (Protonix Tab) 40 mg BID PO 05/05/18 09:00 06/04/18 08:59 05/06/18 20:50 40 MG Levofloxacin (Consult) 1 ea UD PRN N/A 05/05/18 02:00 06/04/18 01:59 Salmeterol Xinafoate/ Fluticasone (Advair Diskus 500/50 Inh) 1 puff BID INH 05/05/18 09:00 06/04/18 08:59 05/06/18 20:50 1 PUFF Albuterol/ Ipratropium (Combivent Respimat Inh) 1 puffs QID PRN INH 05/05/18 02:30 06/04/18 02:29 Hydromorphone HCl (Dilaudid Inj) 1 mg Q4H PRN IV 05/05/18 08:00 05/19/18 07:59 05/05/18 23:43 1 MG Amiodarone HCl (Cordarone Tab) 200 mg QAM PO 05/06/18 09:00 06/05/18 08:59 05/06/18 11:04 200 MG Objective Vital Signs Date Time Temp Pulse Resp B/P (MAP) Pulse Ox O2 Delivery O2 Flow Rate FiO2 05/07/18 03:26 36.4 58 20 105/55 (72) 93 Nasal Cannula 3.0 05/06/18 22:40 36.6 60 21 103/48 (66) 92 Nasal Cannula 3.0 05/06/18 20:00 Nasal Cannula 3.0 05/06/18 19:19 36.3 64 22 104/50 (68) 94 Nasal Cannula 3.0 05/06/18 16:30 36.5 66 18 89/43 (58) 93 Room Air 05/06/18 16:00 Nasal Cannula 3.0 05/06/18 15:35 77 90 05/06/18 11:00 36.5 65 16 108/47 (67) 91 Nasal Cannula 3.0 05/06/18 08:00 Nasal Cannula 3.0 8/2/18 07:46 36.4 65 20 96/49 (65) 90 Nasal Cannula 3.0 Physical Exam General Appearance: WD/WN, no apparent distress Eyes: PERRL, EOMI, + abnormal sclerae exam (icteric) ENT: hearing grossly normal Neck: no JVD, no carotid bruits, trachea midline Respiratory/Chest: chest non-tender, no respiratory distress, no accessory muscle use, + wheezing (diffusely) Cardiovascular: regular rate, rhythm, no murmur Abdomen: non tender, soft, no organomegaly, + distended Extremities: + pedal edema (2+bilat toes to mid calf) Neurologic/Psychiatric: alert, normal mood/affect, oriented x 3 Skin: + pertinent finding (Ulcer on R posterior calf) Laboratory Results Last Resulted 05/07/18 03:50 Last Resulted 05/07/18 03:50 Past 24 Hours Test 05/06/18 08:58 05/07/18 03:50 Range/Units Prothromb Time International Ratio 1.7 H 1.6 H 0.9-1.1 Prothrombin Time 18.1 H 17.1 H 9.0-12.0 SECONDS Assessment and Plan 63 year old male with a PMH of decompensated cirrhosis, CHF, COPD, Atrial fibrillation, HLD, HTN and stage 4 CKD that presented to [facility] with worsening fatigue and productive cough. Hospital acquired (possibly gram negative) pneumonia, COPD exacerbation - CXR showed L>R bibasilar opacities - levaquin and zosyn, day 3 - Discontinued vancomycin - sputum cultures pending - patient does not want duonebs as he feels they don't help, hold home inhalers for now - on 3L NC, wears 2LNC at night at home, will try and wean - IV solumedrol 80mg - monitor WCC stable at 13 DOMINIQUE on CKD stage 4 likely secondary to prerenal azotemia - don't suspect hepatorenal syndrome at this time though recently diagnosed with hepatorenal syndrome and put on midodrine, albumin and octreotide - continue to hold lasix - 25% albumin daily, extra doses today post-paracentesis (had not been administered yesterday) - UA negative - continue Vit D - Cr holding around 2.5 Decompensated Cirrhosis likely secondary to alcoholic hepatitis Ascites - no official biopsy performed per admitting team - grade 1 esophageal varices on recent EGD, will restart coreg at 3.125 bid for afib and portal hypertension - Ascites fluid cultures have NGTD - follows with Dr. Proctor at [place]. Dr. Hopkins to reach out and discuss: [place] unlikely to do any changes - INR was elevated at 1.6 on admission, today 1.6 - Successful paracentesis drawing off 6L of fluid - MELD score of 26, with 20% 3 month mortality - low sodium renal diet - started lactulose and restarted coreg, continue midodrine - Discussed MRCP considering dilated ducts on US, however pt claustrophobic and Dr. Hopkins would like to avoid benzo. - EUS cancelled as liver enzymes have decreased today. Elevated ammonia level and mild confusion POA, likely hepatic encephalopathy - 30ml PO tid of lactulose and titrate to 2-3 soft stools per day - Patient reports one episode of diarrhea today, consider cutting back, or possibly r/t abx? - Patient has been A/O x 3 during our visits H/O ulcerated gastric polyps and grade 1 esophageal varices - continue omeprazole 20mg bid - no further anticoagulation due to risk for recurrent GI bleed Paroxysmal afib - hold off on anticoagulation due to recent GI bleed - restarted coreg to help control HR - continue amiodarone Hyperlipidemia - statin stopped due to liver disease Hyperkalemia - hold PO potassium - no significant EKG changes - continue to monitor, K+ stable at 5.4 Diet, possible moderate malnutrition - low fat, low salt diet - nutrition consult DVT prophylaxis - hold off on chemical anticoagulation due to recent GI bleed - hold off on mechanical SCD's due to lower extremity edema Dispo: med/surg, lives with Code: DNR Resident Tracking Resident Involvement: Resident Care Provided Care Provided: Adult Hospital Medicine Reviewed: Pt Seen/Exam by Me History breathing much improved getting albumin infusion due to having large volume paracentesis Constitutional: denies: fever Respiratory: negative: short of breath Cardiovascular: denies chest pain General Appearance: no apparent distress Respiratory: lungs clear, no respiratory distress Cardiovascular: regular rate, rhythm Gastrointestinal: soft Neurologic/Psychiatric: alert, oriented x 3 Skin Characteristics: warm/dry Assessment/Plan Resident Physician Supervision Note: I independently interviewed and examined the patient and verified the augustine history and physical, reviewed labs and image studies, discussed the case with the resident Dr. Carreno and agree with the findings and care plan.
[2018-05-07 08:00] VITALS: BP 109/53; PULSE 58; TEMP 36.5; O2SAT 91
[2018-05-07] MEDS: MIDODRINE 2.5 MG TAB PO SCH ×3 (08:00→16:34)
[2018-05-07] MEDS: FLUTICASONE/SALMETEROL (ADVAIR) 500/50 INH 14 PUFF INH SCH ×2 (08:13→22:29)
[2018-05-07] MEDS: METHYLPREDNISOLONE IV 80 MG in SYRINGE 0 ML IV SCH (08:13)
[2018-05-07] MEDS: ERGOCALCIFEROL 50,000 INTER.UNIT CAP PO SCH (10:57)
[2018-05-07] MEDS: PANTOprazole SOD 40 MG TAB PO SCH ×2 (10:57→22:30)
[2018-05-07] MEDS: CARVEDILOL 3.125 MG TAB PO SCH ×2 (10:57→22:31)
[2018-05-07] MEDS: AMIODARONE 200 MG TAB PO SCH (10:57)
[2018-05-07 11:52] VITALS: BP 93/41; PULSE 56; TEMP 36.3; O2SAT 97
--- NOTE | 2018-05-07 12:28 | GASTROENTEROLOGY PROGRESS NOTE ---
DATE: 05/07/2018 INPATIENT GASTROENTEROLOGY PROGRESS NOTE SUBJECTIVE: Chart reviewed, patient examined. The patient is doing well overnight. Has lost approximately 6 kilograms consistent with paracentesis of 6 liters removed. The patient denies any fever or shaking chills. Has no abdominal pain and began to have loose stools. The patient had had lactulose ordered, but has not received any as a p.r.n. dose for constipation. He is on antibiotics, Levaquin and Zosyn. Vancomycin has been discontinued. Appetite is good. LFTs today actually are improved. ALLERGIES: No known drug allergies. CURRENT MEDICATIONS: List was reviewed. In addition to the antibiotics above, the patient is also midodrine and received two doses of albumin since yesterday afternoon. PHYSICAL EXAMINATION: VITAL SIGNS: Today blood pressure 109/53, respirations 18, heart rate 58, 36.5, 91% nasal cannula. GENERAL: The patient is awake, alert and oriented, resting comfortably in bed. HEENT: Sclerae minimally icteric. HEART: Normal S1, S2. LUNGS: Clear to auscultation. ABDOMEN: Soft, protuberant, but not tense. There is no rebound or guarding. There is no focal tenderness. EXTREMITIES: Without clubbing, cyanosis. Edema is significantly less with trace 1 edema. IMPRESSION AND PLAN: Regarding renal function, would consider a nephrology consult. BUN is elevated compared to yesterday, although creatinine remained stable. Prerenal versus hepatorenal are likely etiologies. No diuretics have been administered since this hospitalization began. The patient is receiving no extra IV fluids other than those associated with his IV medications. Continue albumin 12.5 grams q. 6 hours. for at least 24 hours in order to maintain a reasonable intravascular oncotic pressure. Regarding the biliary system and liver tests, his liver tests actually continue to resolve and currently today are bilirubin of 2.8 down from 4.0, AST 62 up from 52 and ALT 37 up from 30, alkaline phosphatase minimally elevated at 168 up from 165. Albumin is 2.2 and stable. Potassium is also slightly decreased at 5.4. There are no cultures positive to date, although culture from ascites fluid and sputum are pending. The increase in his stool output, which is loose may be related to antibiotic use and if persists or pattern changes, would check for C. diff. Currently, there is no evidence for encephalopathy. However, if diarrhea does become more profuse and watery, this may contribute to intravascular depletion. Await the urine studies and urine consultation. At the present time, I have postponed endoscopic ultrasound given the patient's resolving white count and liver panel and absence of symptoms. In addition, Anesthesiology had evaluated and was concerned about his cardiopulmonary status. In the absence of clinical findings to suggest cholangitis, we will observe and we plan to repeat an ultrasound early next week to address ductal size as well as for ascites that may require additional paracentesis with albumin replacement. Would ambulate as tolerated. All questions answered. We will discuss with primary team. SUNG
[2018-05-07] MEDS: ALBUMIN HUMAN 25% 12.5 GM/50 ML VIAL IV SCH ×2 (15:04→22:32)
[2018-05-07 16:00] VITALS: BP 105/51; PULSE 57; TEMP 36.4; O2SAT 97
[2018-05-07 19:58] VITALS: BP_SYST 100; BP_SYST 180; BP_DIAS 48; PULSE 58; TEMP 36.3; O2SAT 96
[2018-05-07 20:00] VITALS: O2SAT 96
[2018-05-07] MEDS ORDERED: VANCOMYCIN TROUGH ONE (23:30)
[2018-05-08] VITALS (10 sets, daily range): BP systolic 102–114; BP diastolic 49–69; PULSE 50–60; TEMP 36.3–36.4; O2SAT 91–97
[2018-05-08] MEDS: ALBUMIN HUMAN 25% 12.5 GM/50 ML VIAL IV SCH ×6 (02:14→19:57)
[2018-05-08] MEDS: PIPERACILL/TAZOBAC IV 3.375 GM in DEXTROSE 5% 100ML 100 ML IV SCH ×3 (04:30→20:20)
[2018-05-08] MEDS: MIDODRINE 2.5 MG TAB PO SCH ×3 (07:55→16:00)
[2018-05-08] MEDS: FLUTICASONE/SALMETEROL (ADVAIR) 500/50 INH 14 PUFF INH SCH ×2 (07:56→20:22)
[2018-05-08] MEDS: CARVEDILOL 3.125 MG TAB PO SCH ×2 (07:56→20:23)
[2018-05-08] MEDS: AMIODARONE 200 MG TAB PO SCH (07:57)
[2018-05-08] MEDS: PANTOprazole SOD 40 MG TAB PO SCH ×2 (07:57→20:24)
--- NOTE | 2018-05-08 08:09 | Family Medicine Progress Note ---
Progress Note Date of Service May 08, 2018. Subjective Pt evaluation today including: conversation w/ patient Found patient resting comfortably. Says that his abdomen continues to feel less distended than before. He says his leg swelling is also improved. He notes some mild shortness of breath when walking to the commode but none at rest. He also notes that some previous bleeding after voiding has resolved. He denies any other acute concerns. Constitutional: No fever, No chills Respiratory: + dyspnea on exertion, No cough, No dyspnea at rest Cardiovascular: + edema Abdomen: No pain, No nausea, No vomiting, No diarrhea Medications Current Inpatient Medications Medications (Trade) Dose Ordered Sig/[place] Route Start Time Stop Time Status Last Admin Dose Admin Piperacillin Sod/ Tazobactam Sod 3.375 gm/Dextrose 115 ml @ 28.75 mls/ hr Q8H IV 05/05/18 04:00 05/12/18 03:59 05/08/18 04:30 28.75 MLS/HR Miscellaneous Information (Consult) 1 ea UD PRN N/A 05/04/18 23:30 06/03/18 23:29 Ondansetron HCl (Zofran Inj) 4 mg Q6H PRN IV 05/05/18 00:15 06/04/18 00:14 Levofloxacin 750 mg/Prmx 150 ml @ 100 mls/hr Q48H IV 05/06/18 23:00 05/13/18 22:59 05/06/18 23:01 100 MLS/HR Methylprednisolone Sodium Succinate 80 mg/Syringe 1.28 ml @ 1.5 mls/min DAILY IV 05/05/18 09:00 06/04/18 08:59 05/07/18 08:13 1.5 MLS/MIN Carvedilol (Coreg Tab) 3.125 mg BID PO 05/05/18 01:00 06/04/18 00:59 05/08/18 07:56 3.125 MG Lactulose (Chronulac Syrup) 20 gm TID PRN PO 05/05/18 09:00 06/04/18 08:59 Ergocalciferol (Vitamin D Cap) 50,000 interunit Fr@0900 PO 05/07/18 09:00 06/06/18 08:59 05/07/18 10:57 50,000 INTERUNIT Midodrine (Proamatine Tab) 5 mg 0800,1200,1600 PO 05/05/18 08:00 06/04/18 07:59 05/08/18 07:55 5 MG Pantoprazole Sodium (Protonix Tab) 40 mg BID PO 05/05/18 09:00 06/04/18 08:59 05/08/18 07:57 40 MG Levofloxacin (Consult) 1 ea UD PRN N/A 05/05/18 02:00 06/04/18 01:59 Salmeterol Xinafoate/ Fluticasone (Advair Diskus 500/50 Inh) 1 puff BID INH 05/05/18 09:00 06/04/18 08:59 05/08/18 07:56 1 PUFF Albuterol/ Ipratropium (Combivent Respimat Inh) 1 puffs QID PRN INH 05/05/18 02:30 06/04/18 02:29 Hydromorphone HCl (Dilaudid Inj) 1 mg Q4H PRN IV 05/05/18 08:00 05/19/18 07:59 05/05/18 23:43 1 MG Amiodarone HCl (Cordarone Tab) 200 mg QAM PO 05/06/18 09:00 06/05/18 08:59 05/08/18 07:57 200 MG Albumin Human (Albumin 25%) 12.5 gm Q6H IV 05/07/18 14:30 05/08/18 08:31 05/08/18 07:55 12.5 GM Objective Vital Signs Date Time Temp Pulse Resp B/P (MAP) Pulse Ox O2 Delivery O2 Flow Rate FiO2 05/08/18 07:48 36.3 53 16 102/50 (67) 91 Nasal Cannula 3.0 05/08/18 04:22 36.4 56 17 107/69 (82) 94 Nasal Cannula 3.0 05/08/18 00:37 36.3 57 18 109/50 (69) 93 Nasal Cannula 3.0 05/07/18 20:00 96 Nasal Cannula 3.0 05/07/18 19:58 36.3 58 16 100/48 (65) 96 Nasal Cannula 3.0 05/07/18 16:00 36.4 57 16 105/51 (69) 97 Nasal Cannula 3.0 05/07/18 11:52 36.3 56 16 93/41 (58) 97 Room Air Physical Exam Notes: General Appearance: Awake, alert & oriented, comfortable in general, NAD. CV: +S1S2 RRR, no murmur. Pulm: Mild diffuse wheezing. Nasal cannula oxygen in place. Abdomen: +BS, soft, non-tender, moderately distended. Small dressing in LLQ is c/d/i at site of previous paracentesis. Extremities: Bilateral 1-2+ pedal and calf edema. No calf tenderness. Moving all extremities naturally and easily. Neuro: No gross neuro deficits. Skin: Ulcer on right posterior calf. Laboratory Results 05/08/18 08:02 05/08/18 08:02 Test 05/08/18 08:02 Red Blood Count 3.08 M/uL (4.7-6.1) Mean Corpuscular Volume 102.9 fL (80-100) Mean Corpuscular Hemoglobin 34.4 pg (25-34) Mean Corpuscular Hemoglobin Concent 33.4 g/dl (32-36) RDW Standard Deviation 64.4 fL (36.4-46.3) RDW Coefficient of Variation 17.4 % (11.5-14.5) Mean Platelet Volume 9.7 fL (7.4-10.4) Anion Gap 8.0 mmol/L (3-11) Est Creatinine Clear Calc Drug Dose 33.6 ml/min Estimated GFR () 29.2 Estimated GFR (Non- 25.2 BUN/Creatinine Ratio 31.1 (10-20) Calcium Level 8.0 mg/dl (8.5-10.1) Total Bilirubin 2.6 mg/dl (0.2-1) Aspartate Amino Transf (AST/SGOT) 77 U/L (15-37) Alanine Aminotransferase (ALT/SGPT) 50 U/L (12-78) Alkaline Phosphatase 189 U/L (45-117) Ammonia 28.9 umol/L (11-32) Total Protein 5.7 gm/dl (6.4-8.2) Albumin 2.6 gm/dl (3.4-5.0) Globulin 3.1 gm/dl (2.5-4.0) Albumin/Globulin Ratio 0.8 (0.9-2) Assessment and Plan 63-year-old male admitted on 04 May 2018 for worsening fatigue and cough over the past few weeks. PMH: Decompensated cirrhosis, CHF, COPD, Atrial fibrillation, HLD, HTN, stage 4 CKD, electrolyte issues (sodium and potassium), pneumonia, upper GI bleed Hospital-acquired pneumonia: Admit chest x-ray concerning for atelectasis or pneumonitis. Stopped empiric vancomycin. 05 May began Levaquin and Zosyn. Sputum cultures pending. Repeat chest x-ray on 08 May was suggestive of pneumonia or aspiration pneumonitis. 04 May BCx NGTD. COPD exacerbation: Is on baseline 2 L nasal cannula at night only at home. On his home Advair. 05 May was started on Solu-Medrol 80 mg IV daily. Patient has declined DuoNeb's, preferring as needed Combivent. - Did have an episode of some increased WOB and chest tightness on 08 May afternoon. EKG was sinus magdy 52. Troponin negative. Repeat pCXR without acute change. Given albuterol neb. - There is a question of some aspiration, so requested speech therapy eval for same. - Overall, working to wean off oxygen requirement. 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 Proctor at [place]. GI onboard here, see related notes. Overall, although patient's meld score is 26. [place] is pending six months of sobriety (September) before initiating liver transplant workup. - Discussion here of MRCP for evaluation of elevated alk phos but patient is claustrophobic. Liver enzymes have varied between improvement and worsening. Continue discussions on timing of EUS. - S/p paracentesis on 06 May, removing 6 L of fluid. Related ascites fluid culture NGTD. Was (delayed) given four doses of albumin. - May need paracentesis every 1-2 weeks going forward with related albumin replacement. HPI with history of stage IV CKD: Admit Cr 2.6, presently 2.58. Prior Cr roughly in the mid 1's (1.5 around Nov & January 2018). UA on this admit not suggestive of UTI. FeNa suggests prerenal source, but concerns with rehydration and possible hepatorenal syndrome. Both BUN and creatinine have mildly worsened since yesterday. - Nephrology consulted, see related notes. Recommended continued albumin and 1 liter IVF as well as ongoing midodrine and octreotide. Mild confusion and elevated ammonia level: Likely hepatic encephalopathy. Lactulose was initially ordered as TID prn (with no doses to date). Exam this morning was alert and oriented without confusion. Ammonia levels trended down to normal. Hyperkalemia: Admit K 5.6. EKG was NSR with first-degree AV block. Has since improved to K 4.9. Monitoring. Possible moderate malnutrition: Recommend low-fat, low-salt diet. Nutrition consulted. - Esophageal varices and PUD: Is on Coreg. INR has remained stable around 1.6. Is off anticoagulation due to risk of recurrent GI bleed. - Portal hypertension: On Coreg. - CHF: No evidence of the same on chest imaging. Monitoring. - Paroxysmal A. fib: On Coreg and amiodarone. - Hyperlipidemia: Not on statin due to liver disease. Code status: DO NOT RESUSCITATE Diet: Low-fat, low-sodium diet. DVT prophy: Holding chemical anticoagulation due to recent GI bleed and holding SCD's due to lower extremity edema. PT/OT: Ongoing. Disbo: Admitted to [facility]. Lives with at home. Resident Tracking Resident Involvement: Resident Care Provided Care Provided: Adult Hospital Medicine (inpatient) Reviewed: Pt Seen/Exam by Me History became short of breath in the afternoon but improved on his own later Constitutional: denies: fever Respiratory: negative: short of breath Cardiovascular: denies chest pain General Appearance: no apparent distress Respiratory: no respiratory distress, decreased breath sounds, wheezing ( occasional) Cardiovascular: regular rate, rhythm Neurologic/Psychiatric: alert, oriented x 3 Assessment/Plan Resident Physician Supervision Note: I independently interviewed and examined the patient and verified the augustine history and physical, reviewed labs and image studies, discussed the case with the resident Dr. Abbasi and agree with the findings and care plan.
[2018-05-08 08:17] LABS: HEMATOCRIT 31.7 % (42-52); HEMOGLOBIN 10.6 g/dL (14.0-18.0); MEAN CELL VOLUME 102.9 fL (80-100); MEAN CORPUSCULAR HEMOGLOBIN 34.4 pg (25-34); MEAN CORPUSCULAR HGB CONC 33.4 g/dl (32-36); RED CELL DISTRIBUTION WIDTH CV 17.4 % (11.5-14.5); RED CELL DISTRIBUTION WIDTH SD 64.4 fL (36.4-46.3); WHITE BLOOD COUNT 16.38 K/uL (4.8-10.8)
[2018-05-08 08:23] LABS: MEAN PLATELET VOLUME 9.7 fL (7.4-10.4); PLATELET COUNT 91 K/uL (130-400)
[2018-05-08] MEDS: METHYLPREDNISOLONE IV 80 MG in SYRINGE 0 ML IV SCH (08:34)
[2018-05-08 08:52] LABS: ALBUMIN 2.6 gm/dl (3.4-5.0); CREATININE 2.58 mg/dl (0.60-1.40); POTASSIUM 4.9 mmol/L (3.5-5.1); TOTAL PROTEIN 5.7 gm/dl (6.4-8.2)
--- NOTE | 2018-05-08 11:09 | DIAGNOSTIC IMAGING REPORT ---
TWO VIEW CHEST CLINICAL HISTORY: Pneumonia. FINDINGS: AP and lateral chest radiographs are compared to study dated 05/04/2018 and correlated with chest CT dated 11/24/2017. The AP view is degraded by patient rotation. The heart is enlarged and there is atherosclerotic calcification of the thoracic aorta. The pulmonary vasculature is noncongested. Enlargement of the main pulmonary arteries is unchanged and suggests pulmonary artery hypertension. Emphysema and chronic interstitial thickening are similar to previous. Bibasilar airspace consolidation persists. No large pleural effusion is identified. There is no pneumothorax. The skeletal structures are osteopenic. The bony thorax appears intact. IMPRESSION: 1. Cardiomegaly and emphysema. There is no radiographic evidence of congestive failure. 2. Bibasilar airspace consolidation is identified and typical in appearance for pneumonia/aspiration pneumonitis. Clinical correlation will be required and radiographic follow-up to resolution is recommended. Electronically signed by: Wilner Riddle M.D. 05/08/2018 11:08 AM Dictated Date/Time: 05/08/2018 11:06 AM
--- NOTE | 2018-05-08 12:42 | GASTROENTEROLOGY PROGRESS NOTE ---
DATE: 05/08/2018 SUBJECTIVE: Chart reviewed. Patient examined. First, the patient's gastroenterology progress note dictation from yesterday was inadvertently placed with the wrong name and account number, and I have asked medical records to correct this. I will summarize briefly the note for review. Yesterday, the patient's LFTs were trending downward as was his white count and therefore the decision for endoscopic ultrasound, along with input from anesthesia was to postpone it. The plan for that was to perform a transabdominal ultrasound early next week with review of the patient's ascites burden that may warrant additional paracentesis as well as to reimage the bile duct to see if there is any progressive change or if this reading was an anomaly as prior studies this year did not suggest bile duct dilation. The patient's renal function yesterday showed a slight increase in BUN, although creatinine was relatively stable. The patient was receiving albumin for replacement purposes from the 6 liter paracentesis. Additionally, the patient also is on midodrine. He has been on no lactulose or diuretics. At that time, nephrology was recommended evaluation given that there has been a slight increase in the BUN and to help decide on therapeutic measures for prerenal versus hepatorenal syndrome. Today, chart reviewed, patient examined from yesterday. The patient overall is doing about the same, although he believes that the fluid in his belly is perhaps slightly worse than it had been. His legs are less tense and although there is some mild pitting edema, this is considerably less than admission. His appetite is good. He has no fevers or shaking chills. Reports no abdominal pain and the diarrhea, which was more profuse yesterday has slowed slightly today. He has not been on lactulose. His medications were reviewed. VITAL SIGNS: The patient's blood pressure 102/50, respirations 16, heart rate 53, 36.3 temperature, 91% on 3 liters. His laboratory studies today show white count of 16.3, hemoglobin 10.6, platelets 91,000. His BUN and creatinine are up to 80 and 2.58 from 70 and 2.50 yesterday. Potassium 4.9, sodium 133. His LFTs show some decline and some elevation. Today, his bilirubin is down to 2.6, although AST is up to 77, ALT is up from 37-50 today and alkaline phosphatase from 168-189. CURRENT MEDICATIONS: Include vitamin D, levofloxacin, amiodarone, methylprednisolone, lactulose, pantoprazole, Midodrine, Advair, Zosyn, levofloxacin, carvedilol 3.125 twice daily, Zofran. REVIEW OF SYSTEMS: Otherwise noncontributory based on 13-point exam except for mentioned above. The patient's is accompanying the patient today. PHYSICAL EXAMINATION: HEENT: Sclerae are minimally icteric. HEART: Normal S1, S2. LUNGS: Show distant breath sounds without rhonchi. There are perhaps trace wheezes. HEART: Normal S1, S2. ABDOMEN: Slightly more firm than yesterday with positive bowel sounds. No tenderness, rebound, or guarding noted. EXTREMITIES: Show trace to +1 pitting edema, although less tense than they were yesterday, which is a continued improvement from admission. RECTAL: Deferred. IMPRESSION AND PLAN: 1. Regarding the patient's respiratory status, I spoke with the primary team today and will recommend a chest x-ray given that he has had some tightness that is crept into his breathing pattern. He has at times apparently has declined nebulizer treatments, but I think that this should be encouraged. 2. Regarding the patient's liver tests, currently the patient has no features to suggest cholangitis or right upper quadrant pain/biliary colic. Bilirubin is declining, although alkaline phosphatase is slightly increasing as are the transaminases today. There is also a sense of more firmer abdomen suggesting reaccumulation of ascites. For this either over the weekend tomorrow or certainly early next week, I recommend repeat transabdominal ultrasound to address the ascites burden as well as the pattern of the biliary system including remeasurement of the bile duct. If this is persistently elevated and particularly if LFTs seem to be in an upward trend, then may need to pursue endoscopic ultrasound to interrogate this area for retained stones and if necessary ERCP. (Patient is claustrophobic and therefore cannot undergo MRCP). Awaiting input from nephrology regarding the current condition, but this is a challenge and I spoke with the patient and his at length today over 20 minutes regarding the necessity for strict observation of fluid and sodium restrictions in his daily dietary aspects and as well as monitoring weights. Continue paracentesis intermittently, perhaps every 1-2 weeks may be needed in order to get this down, but has to be cautiously performed in concert with measurement of the patient's renal function. He will require albumin infusion based on the volume of fluid removed. Would check a stool for C. diff today given that his white count did increase slightly and he has been on antibiotics for several days. We did again go over our discussion that I had with Dr. Houston on regarding the importance of continued alcohol sobriety and abstinence as well as continued followup and compliance with recommendations that hopefully will permit continued evaluation for transplantation. All questions answered. Recommendations discussed with Dr. Simms and Dr. Reina. Will await nephrology input. SUNG
--- NOTE | 2018-05-08 12:49 | Nephrology Consultation ---
Nephrology Consultation Date & Providers Date of Consultation: May 08, 2018. Primary Care Provider: Luis Azevedo M.D. Referring Provider: Reason for Consultation DOMINIQUE / CKD, HRS History of Present Illness Mr. Crowley is a 63 year old white male who is seen at the request of Dr. Reina for evaluation of DOMINIQUE / CKD, HRS. Medical records in the hospital EMR were reviewed today and are summarized as follows: Mr. Crowley has a known h/o COPD, pulmonary HTN w/ cor pulmonale, MARK, ASCVD, HTN, atrial fibrillation and prison alcohol abuse. He has CKD w/ baseline creatinine 1.1 - 1.6. Mr. Crowley was last hospitalized at [facility] 04/02 - 04/06 due to weakness associated w/ hyponatremia from aggressive diuretic therapy. Metolazone was discontinued and serum sodium was gradually corrected. Following discharge from the hospital he was [place] [facility] [place]. He will begin transplant evaluation once he has been sober for 6 months (last drink was 03/22) . COPD and poor cardiac status may limit transplant options. Mr. Crowley has suffered from progressive ascites. On 05/05 Mr. Crowley was readmitted to [facility] due to cough and progressive fatigue. On 05/06 he underwent paracentesis w/ 6 L volume removal. Serum creatinine has been 2.6 since admission w/ urine sodium < 5. Patient notes that his ascites is quickly reaccumulating and again he is developing tense ascites. 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 Surgical: Hernia repair Allergies Coded Allergies: No Known Allergies (Unverified , 05/06/18) Inpatient Medications Current Inpatient Medications Medications (Trade) Dose Ordered Sig/[place] Route Start Time Stop Time Status Last Admin Dose Admin Piperacillin Sod/ Tazobactam Sod 3.375 gm/Dextrose 115 ml @ 28.75 mls/ hr Q8H IV 05/05/18 04:00 05/12/18 03:59 05/08/18 12:22 28.75 MLS/HR Miscellaneous Information (Consult) 1 ea UD PRN N/A 05/04/18 23:30 06/03/18 23:29 Ondansetron HCl (Zofran Inj) 4 mg Q6H PRN IV 05/05/18 00:15 06/04/18 00:14 Levofloxacin 750 mg/Prmx 150 ml @ 100 mls/hr Q48H IV 05/06/18 23:00 05/13/18 22:59 05/06/18 23:01 100 MLS/HR Methylprednisolone Sodium Succinate 80 mg/Syringe 1.28 ml @ 1.5 mls/min DAILY IV 05/05/18 09:00 06/04/18 08:59 05/08/18 08:34 1.5 MLS/MIN Carvedilol (Coreg Tab) 3.125 mg BID PO 05/05/18 01:00 06/04/18 00:59 05/08/18 07:56 3.125 MG Lactulose (Chronulac Syrup) 20 gm TID PRN PO 05/05/18 09:00 06/04/18 08:59 Ergocalciferol (Vitamin D Cap) 50,000 interunit Fr@0900 PO 05/07/18 09:00 06/06/18 08:59 05/07/18 10:57 50,000 INTERUNIT Pantoprazole Sodium (Protonix Tab) 40 mg BID PO 05/05/18 09:00 06/04/18 08:59 05/08/18 07:57 40 MG Levofloxacin (Consult) 1 ea UD PRN N/A 05/05/18 02:00 06/04/18 01:59 Salmeterol Xinafoate/ Fluticasone (Advair Diskus 500/50 Inh) 1 puff BID INH 05/05/18 09:00 06/04/18 08:59 05/08/18 07:56 1 PUFF Albuterol/ Ipratropium (Combivent Respimat Inh) 1 puffs QID PRN INH 05/05/18 02:30 06/04/18 02:29 Hydromorphone HCl (Dilaudid Inj) 1 mg Q4H PRN IV 05/05/18 08:00 05/19/18 07:59 05/05/18 23:43 1 MG Amiodarone HCl (Cordarone Tab) 200 mg QAM PO 05/06/18 09:00 06/05/18 08:59 84/18 07:57 200 MG Midodrine (Proamatine Tab) 7.5 mg 0800,1200,1600 PO 05/08/18 16:00 06/04/18 07:59 UNV Albumin Human (Albumin 25%) 25 gm 4XDQ4H IV 05/08/18 15:00 05/10/18 14:59 UNV Octreotide Acetate (Sandostatin Inj) 100 mcg Q8H SQ 05/08/18 12:45 06/07/18 12:44 UNV Family History Cancer Heart disease Hypertension Negative for CKD / ESRD Social History Smoking Status: Never Smoker Drug Use: none Marital Status: Housing Status: lives with significant other 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 H/o heavy alcohol use (last drink 03/22). Review of Systems Constitutional: No fever Respiratory: + cough Cardiovascular: No chest pain Abdomen: + problem reported (abdominal distention), No pain Integumentary: No rash A complete review of systems was performed. Pertinent positives are noted above. All other systems are negative. Physical Exam Date Time Temp Pulse Resp B/P (MAP) Pulse Ox O2 Delivery O2 Flow Rate FiO2 05/08/18 12:16 36.4 60 18 107/55 (72) 96 Nasal Cannula 05/08/18 08:00 92 Nasal Cannula 2.0 05/08/18 07:48 36.3 53 16 102/50 (67) 91 Nasal Cannula 3.0 05/08/18 04:22 36.4 56 17 107/69 (82) 94 Nasal Cannula 3.0 05/08/18 00:37 36.3 57 18 109/50 (69) 93 Nasal Cannula 3.0 05/07/18 20:00 96 Nasal Cannula 3.0 05/07/18 19:58 36.3 58 16 100/48 (65) 96 Nasal Cannula 3.0 05/07/18 16:00 36.4 57 16 105/51 (69) 97 Nasal Cannula 3.0 General Appearance: + pertinent finding (frail, chronically ill appearing) Head: atraumatic (temporal muscle wasting) Eyes: PERRL, EOMI Neck: no adenopathy Respiratory/Chest: + wheezing Cardiovascular: + tachycardia Abdomen/GI: + pertinent finding (distended, nontender, + BS) Extremities/Musculoskelatal: + pertinent finding (1+ pretibial pitting edema, pretibial hemosiderin staining) Neurologic/Psych: alert Laboratory Results Last 24 Hours Test 05/08/18 08:02 White Blood Count 16.38 K/uL Red Blood Count 3.08 M/uL Hemoglobin 10.6 g/dL Hematocrit 31.7 % Mean Corpuscular Volume 102.9 fL Mean Corpuscular Hemoglobin 34.4 pg Mean Corpuscular Hemoglobin Concent 33.4 g/dl RDW Standard Deviation 64.4 fL RDW Coefficient of Variation 17.4 % Platelet Count 91 K/uL Mean Platelet Volume 9.7 fL Sodium Level 133 mmol/L Potassium Level 4.9 mmol/L Chloride Level 99 mmol/L Carbon Dioxide Level 26 mmol/L Anion Gap 8.0 mmol/L Blood Urea Nitrogen 80 mg/dl Creatinine 2.58 mg/dl Est Creatinine Clear Calc Drug Dose 33.6 ml/min Estimated GFR () 29.2 Estimated GFR (Non- 25.2 BUN/Creatinine Ratio 31.1 Random Glucose 147 mg/dl Calcium Level 8.0 mg/dl Total Bilirubin 2.6 mg/dl Aspartate Amino Transf (AST/SGOT) 77 U/L Alanine Aminotransferase (ALT/SGPT) 50 U/L Alkaline Phosphatase 189 U/L Ammonia 28.9 umol/L Total Protein 5.7 gm/dl Albumin 2.6 gm/dl Globulin 3.1 gm/dl Albumin/Globulin Ratio 0.8 Impression (1) Hepatorenal syndrome (2) DOMINIQUE (acute kidney injury) (3) Chronic kidney disease (4) Cirrhosis (5) Hyponatremia Recommendations Time course for increase in creatinine is difficult to discern, however patient has DOMINIQUE on CKD with a bland urine sediment and urine sodium < 5 mmol/L. Clinical presentation is suggestive of HRS. Will increase intravascular volume by providing SPA 25 g IV QID x 2 days and infusing 1 L 0.9NS. Will provide Midodrine and Octreotide to improve renal perfusion. Orders written to monitor serial PRP. If renal function declines will need to reassess goals of care due to patient's multiple comorbidities and questionable transplant candidacy.
[2018-05-08] MEDS ORDERED: SODIUM CHLORIDE 0.9% 1000ML 1,000 ML IV SCH (13:15)
[2018-05-08] MEDS: IPRATROPIUM BROMIDE/ALBUTEROL respimat INH INH PRN (14:31)
[2018-05-08] MEDS ORDERED: ALBUTEROL 0.083% NEBU SOLN 3 ML VIAL INH STA (14:44)
[2018-05-08] MEDS: OCTREOTIDE ACETATE 100 MCG/ML VIAL SQ SCH ×2 (14:51→22:44)
--- NOTE | 2018-05-08 15:53 | DIAGNOSTIC IMAGING REPORT ---
SINGLE VIEW CHEST CLINICAL HISTORY: Pneumonia. FINDINGS: 2 AP, portable, upright chest radiographs R compared to study performed earlier the same day 05/08/2018 and correlated with chest CT dated 11/24/2017. The The examination is degraded by portable technique and apical lordotic positioning. . The heart is enlarged and there is atherosclerotic calcification of the thoracic aorta. The pulmonary vasculature is noncongested. Enlargement of the main pulmonary arteries is unchanged and suggests pulmonary artery hypertension. Emphysema and chronic interstitial thickening are similar to previous. There is improved aeration at the right lung base. Consolidative change is again seen at the left lung base in the retrocardiac region. No large pleural effusion is identified. There is no pneumothorax. The skeletal structures are osteopenic. The bony thorax appears intact. IMPRESSION: 1. Cardiomegaly and emphysema. There is no radiographic evidence of congestive failure. 2. There is improved aeration of the right lung base. Persistent consolidation is seen at the left lung base and suggests pneumonia. Continued follow-up to resolution is recommended. Electronically signed by: Wilner Riddle M.D. 05/08/2018 3:52 PM Dictated Date/Time: 05/08/2018 3:50 PM
[2018-05-09] VITALS (8 sets, daily range): BP systolic 101–121; BP diastolic 51–94; PULSE 50–55; TEMP 36.3–36.7; O2SAT 92–96
[2018-05-09] MEDS: LEVOFLOXACIN / D5W 750 MG in PREMIXED IN D5W 150 ML IV SCH (00:32)
[2018-05-09] MEDS: PIPERACILL/TAZOBAC IV 3.375 GM in DEXTROSE 5% 100ML 100 ML IV SCH ×3 (04:03→20:36)
[2018-05-09] MEDS: OCTREOTIDE ACETATE 100 MCG/ML VIAL SQ SCH ×3 (05:26→21:03)
[2018-05-09 05:44] LABS: HEMATOCRIT 28.4 % (42-52); HEMOGLOBIN 9.4 g/dL (14.0-18.0); MEAN CORPUSCULAR HEMOGLOBIN 34.4 pg (25-34); MEAN CORPUSCULAR HGB CONC 33.1 g/dl (32-36); RED CELL DISTRIBUTION WIDTH CV 17.5 % (11.5-14.5); WHITE BLOOD COUNT 11.02 K/uL (4.8-10.8)
[2018-05-09 05:55] LABS: INR 1.7 (0.9-1.1)
[2018-05-09 06:05] LABS: MEAN PLATELET VOLUME 9.6 fL (7.4-10.4); PLATELET COUNT 68 K/uL (130-400)
[2018-05-09 06:14] LABS: ALBUMIN 2.6 gm/dl (3.4-5.0); CALCIUM 7.6 mg/dl (8.5-10.1); CREATININE 2.62 mg/dl (0.60-1.40); POTASSIUM 5.4 mmol/L (3.5-5.1); TOTAL PROTEIN 5.3 gm/dl (6.4-8.2)
[2018-05-09 06:25] LABS: IG# 0.05 K/uL (0.00-0.02); LYMPH % 4.2 %; LYMPH ABS # 0.46 K/uL (1.2-3.4); MONO % 3.6 %; NEUT % 91.7 %; NEUT ABS # 10.11 K/uL (1.4-6.5)
[2018-05-09] MEDS: ALBUMIN HUMAN 25% 12.5 GM/50 ML VIAL IV SCH ×7 (06:25→20:24)
[2018-05-09] MEDS: AMIODARONE 200 MG TAB PO SCH (07:48)
[2018-05-09] MEDS: MIDODRINE 2.5 MG TAB PO SCH ×3 (07:48→15:14)
[2018-05-09] MEDS: FLUTICASONE/SALMETEROL (ADVAIR) 500/50 INH 14 PUFF INH SCH ×2 (07:48→20:36)
[2018-05-09] MEDS: PANTOprazole SOD 40 MG TAB PO SCH ×2 (07:49→20:37)
[2018-05-09] MEDS: CARVEDILOL 3.125 MG TAB PO SCH ×2 (07:49→20:37)
--- NOTE | 2018-05-09 09:07 | Family Medicine Progress Note ---
Progress Note Date of Service May 09, 2018. Subjective Pt evaluation today including: conversation w/ patient Found patient sitting at the side of the bed, eating some of his breakfast, after ambulating to the commode. He says that his abdomen feels a little more distended than yesterday. The albuterol neb helped his shortness of breath and chest pressure significantly yesterday. At present, he feels a little short of breath with exertion but not at rest. Presently denies any chest pain or discomfort. Says his current respiratory medication frequency is sufficient for him. He denies any focal pains or other acute concerns. Constitutional: No fever, No chills Respiratory: + dyspnea on exertion, No cough, No dyspnea at rest Cardiovascular: + edema, No chest pain Abdomen: + see HPI, No pain, No nausea, No vomiting, No diarrhea Medications Current Inpatient Medications Medications (Trade) Dose Ordered Sig/Frank[place] Route Start Time Stop Time Status Last Admin Dose Admin Piperacillin Sod/ Tazobactam Sod 3.375 gm/Dextrose 115 ml @ 28.75 mls/ hr Q8H IV 05/05/18 04:00 05/12/18 03:59 05/09/18 04:03 28.75 MLS/HR Miscellaneous Information (Consult) 1 ea UD PRN N/A 05/04/18 23:30 06/03/18 23:29 Ondansetron HCl (Zofran Inj) 4 mg Q6H PRN IV 05/05/18 00:15 06/04/18 00:14 Levofloxacin 750 mg/Prmx 150 ml @ 100 mls/hr Q48H IV 05/06/18 23:00 05/13/18 22:59 05/09/18 00:32 100 MLS/HR Methylprednisolone Sodium Succinate 80 mg/Syringe 1.28 ml @ 1.5 mls/min DAILY IV 05/05/18 09:00 06/04/18 08:59 05/08/18 08:34 1.5 MLS/MIN Carvedilol (Coreg Tab) 3.125 mg BID PO 05/05/18 01:00 06/04/18 00:59 05/09/18 07:49 3.125 MG Lactulose (Chronulac Syrup) 20 gm TID PRN PO 05/05/18 09:00 8/31/18 08:59 Ergocalciferol (Vitamin D Cap) 50,000 interunit Fr@0900 PO 05/07/18 09:00 06/06/18 08:59 05/07/18 10:57 50,000 INTERUNIT Pantoprazole Sodium (Protonix Tab) 40 mg BID PO 05/05/18 09:00 06/04/18 08:59 05/09/18 07:49 40 MG Levofloxacin (Consult) 1 ea UD PRN N/A 05/05/18 02:00 06/04/18 01:59 Salmeterol Xinafoate/ Fluticasone (Advair Diskus 500/50 Inh) 1 puff BID INH 05/05/18 09:00 06/04/18 08:59 05/09/18 07:48 1 PUFF Albuterol/ Ipratropium (Combivent Respimat Inh) 1 puffs QID PRN INH 05/05/18 02:30 06/04/18 02:29 05/08/18 14:31 1 PUFFS Hydromorphone HCl (Dilaudid Inj) 1 mg Q4H PRN IV 05/05/18 08:00 05/19/18 07:59 05/05/18 23:43 1 MG Amiodarone HCl (Cordarone Tab) 200 mg QAM PO 05/06/18 09:00 06/05/18 08:59 05/09/18 07:48 200 MG Midodrine (Proamatine Tab) 7.5 mg 0800,1200,1600 PO 05/08/18 16:00 06/04/18 07:59 05/09/18 07:48 7.5 MG Albumin Human (Albumin 25%) 25 gm 4XDQ4H IV 05/08/18 15:00 05/10/18 14:59 05/09/18 06:25 25 GM Octreotide Acetate (Sandostatin Inj) 100 mcg Q8H SQ 05/08/18 14:00 06/07/18 13:59 05/09/18 05:26 100 MCG Objective Vital Signs Date Time Temp Pulse Resp B/P (MAP) Pulse Ox O2 Delivery O2 Flow Rate FiO2 05/09/18 07:47 36.5 52 16 111/57 (75) 94 Nasal Cannula 05/09/18 04:00 36.7 52 18 101/51 (68) 92 Nasal Cannula 4.0 05/08/18 23:07 36.3 51 18 111/49 (69) 95 Nasal Cannula 4.0 05/08/18 20:00 97 Nasal Cannula 4.0 05/08/18 19:20 36.4 52 14 114/53 (73) 97 Nasal Cannula 4.0 05/08/18 15:46 51 20 112/50 (70) 95 Nasal Cannula 4.0 05/08/18 15:17 50 18 95 Nasal Cannula 4.0 05/08/18 12:16 36.4 60 18 107/55 (72) 96 Nasal Cannula Physical Exam Notes: General Appearance: Awake, alert & oriented, comfortable in general, NAD. CV: +S1S2 regular bradycardia, no murmur. Pulm: Mild diffuse wheezing, unchanged from yesterday. Nasal cannula oxygen in place. Abdomen: +BS, soft, non-tender, moderately distended (a bit more than yesterday ). Small dressing in LLQ is c/d/i at site of previous paracentesis. Extremities: Bilateral 1+ pedal and calf edema. No calf tenderness. Moving all extremities naturally and easily. Neuro: No gross neuro deficits. Skin: Ulcer on right posterior calf. Laboratory Results 05/09/18 05:18 Red Blood Count 2.73, Mean Corpuscular Volume 104.0, Mean Corpuscular Hemoglobin 34.4, Mean Corpuscular Hemoglobin Concent 33.1, Mean Platelet Volume 9.6, Neutrophils (%) (Auto) 91.7, Lymphocytes (%) (Auto) 4.2, Monocytes (%) ( Auto) 3.6, Eosinophils (%) (Auto) 0.0, Basophils (%) (Auto) 0.0, Neutrophils # ( Auto) 10.11, Lymphocytes # (Auto) 0.46, Monocytes # (Auto) 0.40, Eosinophils # ( Auto) 0.00, Basophils # (Auto) 0.00 05/09/18 05:18 Test 05/08/18 14:51 05/09/18 05:18 Troponin I < 0.015 ng/ml (0-0.045) White Blood Count 11.02 K/uL (4.8-10.8) Red Blood Count 2.73 M/uL (4.7-6.1) Hemoglobin 9.4 g/dL (14.0-18.0) Hematocrit 28.4 % (42-52) Mean Corpuscular Volume 104.0 fL (80-100) Mean Corpuscular Hemoglobin 34.4 pg (25-34) Mean Corpuscular Hemoglobin Concent 33.1 g/dl (32-36) Platelet Count 68 K/uL (130-400) Mean Platelet Volume 9.6 fL (7.4-10.4) Neutrophils (%) (Auto) 91.7 % Lymphocytes (%) (Auto) 4.2 % Monocytes (%) (Auto) 3.6 % Eosinophils (%) (Auto) 0.0 % Basophils (%) (Auto) 0.0 % Neutrophils # (Auto) 10.11 K/uL (1.4-6.5) Lymphocytes # (Auto) 0.46 K/uL (1.2-3.4) Monocytes # (Auto) 0.40 K/uL (0.11-0.59) Eosinophils # (Auto) 0.00 K/uL (0-0.5) Basophils # (Auto) 0.00 K/uL (0-0.2) RDW Standard Deviation 65.0 fL (36.4-46.3) RDW Coefficient of Variation 17.5 % (11.5-14.5) Immature Granulocyte % (Auto) 0.5 % Immature Granulocyte # (Auto) 0.05 K/uL (0.00-0.02) Prothrombin Time 17.4 SECONDS (9.0-12.0) Prothromb Time International Ratio 1.7 (0.9-1.1) Anion Gap 6.0 mmol/L (3-11) Est Creatinine Clear Calc Drug Dose 33.1 ml/min Estimated GFR () 28.6 Estimated GFR (Non- 24.7 BUN/Creatinine Ratio 32.3 (10-20) Calcium Level 7.6 mg/dl (8.5-10.1) Total Bilirubin 2.5 mg/dl (0.2-1) Aspartate Amino Transf (AST/SGOT) 53 U/L (15-37) Alanine Aminotransferase (ALT/SGPT) 49 U/L (12-78) Alkaline Phosphatase 156 U/L (45-117) Total Protein 5.3 gm/dl (6.4-8.2) Albumin 2.6 gm/dl (3.4-5.0) Globulin 2.7 gm/dl (2.5-4.0) Albumin/Globulin Ratio 1.0 (0.9-2) Assessment and Plan 63-year-old male admitted on 04 May 2018 for worsening fatigue and cough over the past few weeks. PMH: Decompensated cirrhosis, CHF, COPD, Atrial fibrillation, HLD, HTN, CKD stage 4, electrolyte issues (sodium and potassium), pneumonia, upper GI bleed Hospital-acquired pneumonia: Admit chest x-ray concerning for atelectasis or pneumonitis. Stopped empiric vancomycin. 05 May began Levaquin and Zosyn. Sputum cultures noted heavy normal silvestre. Repeat chest x-ray on 08 May was suggestive of left base pneumonia or aspiration pneumonitis. 04 May BCx NGTD. - Prior speech evaluations did not note evidence of aspiration risk (see related note). We will not pursue further workup at this time. COPD exacerbation: Is on baseline 2 L nasal cannula at night only at home. On his home Advair. 05 May was started on Solu-Medrol 80 mg IV daily. Patient has declined DuoNeb's, preferring as needed Combivent. Some acute episodes of shortness of breath as inpatient, responding well to albuterol nebs. - Overall, working to wean off oxygen requirement. 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 Proctor at [facility]. GI onboard here, see related notes. Overall, although patient's meld score is 26. [facility] is pending six months of sobriety (September) before initiating liver transplant workup. - Discussion here of MRCP for evaluation of elevated alk phos but patient is claustrophobic. Liver enzymes have varied between improvement and worsening. Continue discussions on timing of EUS. - S/p paracentesis on 06 May, removing 6 L of fluid. Related ascites fluid culture NGTD. Ongoing albumin dosing. May need paracentesis every 1-2 weeks going forward with related albumin replacement. - GI recommended repeat transabdominal ultrasound to address the ascites burden as well as the pattern of the biliary system including re-measurement of the bile duct. DOMINIQUE with history of stage IV CKD: Admit Cr 2.6, presently 2.62. Prior Cr roughly in the mid 1's (1.5 around Nov & January 2018). UA on this admit not suggestive of UTI. FeNa suggests prerenal source, but also concerns with rehydration and hepatorenal syndrome. Both BUN and creatinine have continued to worsen over 48 hours. - Nephrology consulted, see related notes. Recommended continued albumin and 1 liter IVF as well as ongoing midodrine and octreotide. Mild confusion and elevated ammonia level: Likely hepatic encephalopathy. Lactulose was initially ordered as TID prn (with no doses to date). Remains alert and oriented without confusion over past 48 hours. Ammonia levels trended down to normal. Thrombocytopenia: Platelets down to 68. No evidence of acute bleeding. Monitoring. Hyperkalemia: Admit K 5.6. EKG was NSR with first-degree AV block. Up to K 5.4 today. Monitoring. Possible moderate malnutrition: Recommend low-fat, low-salt diet. Nutrition consulted. - Esophageal varices and PUD: Is on Coreg. INR has remained stable around 1.6 - 1.7. Is off anticoagulation due to risk of recurrent GI bleed. - Portal hypertension: On Coreg. - CHF: No evidence of the same on chest imaging. Monitoring. - Paroxysmal A. fib: On Coreg and amiodarone. - Hyperlipidemia: Not on statin due to liver disease. Code status: DO NOT RESUSCITATE Diet: Low-fat, low-sodium diet. DVT prophy: Holding chemical anticoagulation due to recent GI bleed and holding SCD's due to lower extremity edema. PT/OT: Ongoing. Disbo: Admitted to [facility]. Lives with at home. Resident Tracking Resident Involvement: Resident Care Provided Care Provided: Adult Hospital Medicine (inpatient) Reviewed: Pt Seen/Exam by Me History breathing same abdomen feels more distended Constitutional: denies: fever Cardiovascular: denies chest pain Gastrointestinal/Abdominal: negative: abdominal pain General Appearance: no apparent distress Respiratory: lungs clear, no respiratory distress Cardiovascular: regular rate, rhythm Gastrointestinal: soft, distended Neurologic/Psychiatric: alert, oriented x 3 Assessment/Plan Resident Physician Supervision Note: I independently interviewed and examined the patient and verified the augustine history and physical, reviewed labs and image studies, discussed the case with the resident Dr. Abbasi and agree with the findings and care plan.
[2018-05-09] MEDS: METHYLPREDNISOLONE IV 80 MG in SYRINGE 0 ML IV SCH (09:15)
--- NOTE | 2018-05-09 11:01 | Nephrology Progress Note ---
Nephrology Progress Note Date of Service May 09, 2018. Chief Complaint DOMINIQUE / CKD, HRS Subjective Mr. Crowley was seen & examined in his hospital room this morning. He complains of mild dyspnea, wheezing and progressive abdominal distention. He has not been collecting his urine for RN to measure volume Review of Systems Constitutional: No fever Cardiovascular: No chest pain Respiratory: No dyspnea at rest Abdomen: No pain, No diarrhea Genitourinary - Male: No dysuria, No gross hematuria Extremities: + leg edema A complete review of systems was performed. Pertinent positives are noted above. All other systems are negative. Vital Signs Last 8 Hrs Date Time Temp Pulse Resp B/P (MAP) Pulse Ox O2 Delivery O2 Flow Rate FiO2 05/09/18 08:00 95 Nasal Cannula 2.0 05/09/18 07:47 36.5 52 16 111/57 (75) 94 Nasal Cannula 05/09/18 04:00 36.7 52 18 101/51 (68) 92 Nasal Cannula 4.0 Last Recorded Weight Weight (Kilograms): 86.800 Physical Exam General Appearance: + pertinent finding (weak, frail, chronically ill appearing ) Head: atraumatic Eyes: PERRL, EOMI Neck: no adenopathy Respiratory/Chest: + wheezing Cardiovascular: regular rate, rhythm Abdomen/GI: non tender (distended) Extremities/Musculoskelatal: + swelling (1+ pretibial pitting edema, + pretibial hemosiderin staining) Neurologic/Psych: alert, oriented x 3 Family History Cancer Heart disease Hypertension Negative for CKD / ESRD Social History Smoking Status: Current every day smoker Drug Use: none Marital Status: Housing Status: lives with significant other Occupation: employed . 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 H/o heavy alcohol use (last drink 03/22). Laboratory Results Past 24 Hours 05/09/18 05:18 Red Blood Count 2.73, Mean Corpuscular Volume 104.0, Mean Corpuscular Hemoglobin 34.4, Mean Corpuscular Hemoglobin Concent 33.1, Mean Platelet Volume 9.6, Neutrophils (%) (Auto) 91.7, Lymphocytes (%) (Auto) 4.2, Monocytes (%) ( Auto) 3.6, Eosinophils (%) (Auto) 0.0, Basophils (%) (Auto) 0.0, Neutrophils # ( Auto) 10.11, Lymphocytes # (Auto) 0.46, Monocytes # (Auto) 0.40, Eosinophils # ( Auto) 0.00, Basophils # (Auto) 0.00 05/09/18 05:18 Test 05/08/18 14:51 05/09/18 05:18 Troponin I < 0.015 ng/ml (0-0.045) White Blood Count 11.02 K/uL (4.8-10.8) Red Blood Count 2.73 M/uL (4.7-6.1) Hemoglobin 9.4 g/dL (14.0-18.0) Hematocrit 28.4 % (42-52) Mean Corpuscular Volume 104.0 fL (80-100) Mean Corpuscular Hemoglobin 34.4 pg (25-34) Mean Corpuscular Hemoglobin Concent 33.1 g/dl (32-36) Platelet Count 68 K/uL (130-400) Mean Platelet Volume 9.6 fL (7.4-10.4) Neutrophils (%) (Auto) 91.7 % Lymphocytes (%) (Auto) 4.2 % Monocytes (%) (Auto) 3.6 % Eosinophils (%) (Auto) 0.0 % Basophils (%) (Auto) 0.0 % Neutrophils # (Auto) 10.11 K/uL (1.4-6.5) Lymphocytes # (Auto) 0.46 K/uL (1.2-3.4) Monocytes # (Auto) 0.40 K/uL (0.11-0.59) Eosinophils # (Auto) 0.00 K/uL (0-0.5) Basophils # (Auto) 0.00 K/uL (0-0.2) RDW Standard Deviation 65.0 fL (36.4-46.3) RDW Coefficient of Variation 17.5 % (11.5-14.5) Immature Granulocyte % (Auto) 0.5 % Immature Granulocyte # (Auto) 0.05 K/uL (0.00-0.02) Prothrombin Time 17.4 SECONDS (9.0-12.0) Prothromb Time International Ratio 1.7 (0.9-1.1) Anion Gap 6.0 mmol/L (3-11) Est Creatinine Clear Calc Drug Dose 33.1 ml/min Estimated GFR () 28.6 Estimated GFR (Non- 24.7 BUN/Creatinine Ratio 32.3 (10-20) Calcium Level 7.6 mg/dl (8.5-10.1) Total Bilirubin 2.5 mg/dl (0.2-1) Aspartate Amino Transf (AST/SGOT) 53 U/L (15-37) Alanine Aminotransferase (ALT/SGPT) 49 U/L (12-78) Alkaline Phosphatase 156 U/L (45-117) Total Protein 5.3 gm/dl (6.4-8.2) Albumin 2.6 gm/dl (3.4-5.0) Globulin 2.7 gm/dl (2.5-4.0) Albumin/Globulin Ratio 1.0 (0.9-2) Allergies Coded Allergies: No Known Allergies (Unverified , 05/06/18) Medications Current Inpatient Medications Medications (Trade) Dose Ordered Sig/Franklyn Route Start Time Stop Time Status Last Admin Dose Admin Piperacillin Sod/ Tazobactam Sod 3.375 gm/Dextrose 115 ml @ 28.75 mls/ hr Q8H IV 05/05/18 04:00 05/12/18 03:59 05/09/18 04:03 28.75 MLS/HR Miscellaneous Information (Consult) 1 ea UD PRN N/A 05/04/18 23:30 06/03/18 23:29 Ondansetron HCl (Zofran Inj) 4 mg Q6H PRN IV 05/05/18 00:15 06/04/18 00:14 Levofloxacin 750 mg/Prmx 150 ml @ 100 mls/hr Q48H IV 05/06/18 23:00 05/13/18 22:59 05/09/18 00:32 100 MLS/HR Methylprednisolone Sodium Succinate 80 mg/Syringe 1.28 ml @ 1.5 mls/min DAILY IV 05/05/18 09:00 06/04/18 08:59 05/09/18 09:15 1.5 MLS/MIN Carvedilol (Coreg Tab) 3.125 mg BID PO 05/05/18 01:00 06/04/18 00:59 05/09/18 07:49 3.125 MG Lactulose (Chronulac Syrup) 20 gm TID PRN PO 05/05/18 09:00 06/04/18 08:59 Ergocalciferol (Vitamin D Cap) 50,000 interunit Fr@0900 PO 05/07/18 09:00 06/06/18 08:59 05/07/18 10:57 50,000 INTERUNIT Pantoprazole Sodium (Protonix Tab) 40 mg BID PO 05/05/18 09:00 06/04/18 08:59 05/09/18 07:49 40 MG Levofloxacin (Consult) 1 ea UD PRN N/A 05/05/18 02:00 06/04/18 01:59 Salmeterol Xinafoate/ Fluticasone (Advair Diskus 500/50 Inh) 1 puff BID INH 05/05/18 09:00 06/04/18 08:59 05/09/18 07:48 1 PUFF Albuterol/ Ipratropium (Combivent Respimat Inh) 1 puffs QID PRN INH 05/05/18 02:30 06/04/18 02:29 05/08/18 14:31 1 PUFFS Hydromorphone HCl (Dilaudid Inj) 1 mg Q4H PRN IV 05/05/18 08:00 05/19/18 07:59 05/05/18 23:43 1 MG Amiodarone HCl (Cordarone Tab) 200 mg QAM PO 05/06/18 09:00 06/05/18 08:59 05/09/18 07:48 200 MG Midodrine (Proamatine Tab) 7.5 mg 0800,1200,1600 PO 05/08/18 16:00 06/04/18 07:59 05/09/18 07:48 7.5 MG Albumin Human (Albumin 25%) 25 gm 4XDQ4H IV 05/08/18 15:00 05/10/18 14:59 05/09/18 06:25 25 GM Octreotide Acetate (Sandostatin Inj) 100 mcg Q8H SQ 05/08/18 14:00 06/07/18 13:59 05/09/18 05:26 100 MCG Impression (1) Hepatorenal syndrome (2) DOMINIQUE (acute kidney injury) (3) Chronic kidney disease (4) Cirrhosis (5) Hyponatremia Recommendations Creatinine continues to slowly increase despite 1 L 0.9NS IV and 1 g / kg albumin infusion yesterday. Lack of improvement is suggestive of HRS. Will continue SPA 25 g IV QID, Midodrine and Octreotide today. Will recheck PRP in am. Prognosis is guarded. If renal function fails to improve or declines, will need to reassess goals of care due to patient's multiple comorbidities and questionable transplant candidacy.
[2018-05-09] MEDS ORDERED: ALBUTEROL 0.083% NEBU SOLN 3 ML VIAL INH PRN (12:45)
[2018-05-09] MEDS: HYDROmorphone INJ 0.5 MG/0.5 ML SYR IV PRN ×2 (15:13→21:01)
[2018-05-10] MEDS: PIPERACILL/TAZOBAC IV 3.375 GM in DEXTROSE 5% 100ML 100 ML IV SCH ×2 (04:25→13:07)
[2018-05-10] MEDS: OCTREOTIDE ACETATE 100 MCG/ML VIAL SQ SCH ×3 (05:45→23:01)
[2018-05-10 06:20] LABS: HEMATOCRIT 28.7 % (42-52); HEMOGLOBIN 9.9 g/dL (14.0-18.0); MEAN CORPUSCULAR HEMOGLOBIN 35.9 pg (25-34); MEAN CORPUSCULAR HGB CONC 34.5 g/dl (32-36); RED CELL DISTRIBUTION WIDTH CV 17.9 % (11.5-14.5); RED CELL DISTRIBUTION WIDTH SD 67.4 fL (36.4-46.3); WHITE BLOOD COUNT 11.97 K/uL (4.8-10.8)
[2018-05-10 06:40] LABS: MEAN PLATELET VOLUME 9.4 fL (7.4-10.4); PLATELET COUNT 59 K/uL (130-400)
[2018-05-10 06:54] LABS: ALBUMIN 2.9 gm/dl (3.4-5.0); CALCIUM 7.8 mg/dl (8.5-10.1); CREATININE 2.61 mg/dl (0.60-1.40); POTASSIUM 5.1 mmol/L (3.5-5.1); TOTAL PROTEIN 5.4 gm/dl (6.4-8.2)
[2018-05-10 07:14] VITALS: BP 117/61; PULSE 50; TEMP 36.8; O2SAT 93
--- NOTE | 2018-05-10 07:27 | Family Medicine Progress Note ---
Progress Note Date of Service May 10, 2018. Subjective Pt evaluation today including: conversation w/ patient, conversation w/ family , physical exam, chart review, conversation w/ organizational research consultant Pain: Improved LE pain PO Intake: Tolerating well Voiding: no voiding problems Patient in better spirits, more agreeable to treatment plan. Reports belly is becoming more swollen and uncomfortable today. Constitutional: No fever ENT: + trouble swallowing Respiratory: + shortness of breath, + dyspnea on exertion Cardiovascular: + edema Abdomen: + pain (from distension) Neurologic: + numbness/tingling, + balance problems All Other Systems: Reviewed and Negative Medications Current Inpatient Medications Medications (Trade) Dose Ordered Sig/Franklyn Route Start Time Stop Time Status Last Admin Dose Admin Piperacillin Sod/ Tazobactam Sod 3.375 gm/Dextrose 115 ml @ 28.75 mls/ hr Q8H IV 05/05/18 04:00 05/12/18 03:59 05/10/18 04:25 28.75 MLS/HR Miscellaneous Information (Consult) 1 ea UD PRN N/A 05/04/18 23:30 06/03/18 23:29 Ondansetron HCl (Zofran Inj) 4 mg Q6H PRN IV 05/05/18 00:15 06/04/18 00:14 Levofloxacin 750 mg/Prmx 150 ml @ 100 mls/hr Q48H IV 05/06/18 23:00 05/13/18 22:59 05/09/18 00:32 100 MLS/HR Methylprednisolone Sodium Succinate 80 mg/Syringe 1.28 ml @ 1.5 mls/min DAILY IV 05/05/18 09:00 06/04/18 08:59 05/09/18 09:15 1.5 MLS/MIN Carvedilol (Coreg Tab) 3.125 mg BID PO 05/05/18 01:00 06/04/18 00:59 05/09/18 20:37 3.125 MG Lactulose (Chronulac Syrup) 20 gm TID PRN PO 05/05/18 09:00 06/04/18 08:59 Ergocalciferol (Vitamin D Cap) 50,000 interunit Fr@0900 PO 05/07/18 09:00 06/06/18 08:59 05/07/18 10:57 50,000 INTERUNIT Pantoprazole Sodium (Protonix Tab) 40 mg BID PO 05/05/18 09:00 06/04/18 08:59 05/09/18 20:37 40 MG Levofloxacin (Consult) 1 ea UD PRN N/A 05/05/18 02:00 06/04/18 01:59 Salmeterol Xinafoate/ Fluticasone (Advair Diskus 500/50 Inh) 1 puff BID INH 05/05/18 09:00 06/04/18 08:59 05/09/18 20:36 1 PUFF Albuterol/ Ipratropium (Combivent Respimat Inh) 1 puffs QID PRN INH 05/05/18 02:30 06/04/18 02:29 05/08/18 14:31 1 PUFFS Amiodarone HCl (Cordarone Tab) 200 mg QAM PO 05/06/18 09:00 06/05/18 08:59 05/09/18 07:48 200 MG Midodrine (Proamatine Tab) 7.5 mg 0800,1200,1600 PO 05/08/18 16:00 06/04/18 07:59 05/09/18 15:14 7.5 MG Octreotide Acetate (Sandostatin Inj) 100 mcg Q8H SQ 05/08/18 14:00 06/07/18 13:59 05/10/18 05:45 100 MCG Albumin Human (Albumin 25%) 12.5 gm DAILY@1100,1101 IV 05/09/18 11:00 05/10/18 11:02 05/09/18 12:48 12.5 GM Albuterol Sulfate (Ventolin 0.083% 2.5MG/3ML Neb) 5 mg Q6R PRN INH 05/09/18 12:45 06/08/18 12:44 Hydromorphone HCl (Dilaudid Inj) 0.5 mg Q4H PRN IV 05/09/18 15:15 05/19/18 07:59 05/09/18 21:01 0.5 MG Objective Vital Signs Date Time Temp Pulse Resp B/P (MAP) Pulse Ox O2 Delivery O2 Flow Rate FiO2 05/10/18 07:14 36.8 50 19 117/61 (79) 93 Nasal Cannula 4.0 05/09/18 23:50 36.3 50 18 111/54 (73) 93 Nasal Cannula 4.0 05/09/18 20:00 94 Nasal Cannula 4.0 05/09/18 15:45 36.3 53 18 121/51 (74) 94 Nasal Cannula 4.0 05/09/18 12:53 55 18 96 Nasal Cannula 4.0 05/09/18 12:00 36.5 55 16 104/51 (68) 94 Nasal Cannula 05/09/18 08:00 95 Nasal Cannula 2.0 05/09/18 07:47 36.5 52 16 111/57 (75) 94 Nasal Cannula Physical Exam General Appearance: WD/WN, no apparent distress Eyes: PERRL, EOMI, + abnormal sclerae exam (icterus) ENT: hearing grossly normal Neck: trachea midline Respiratory/Chest: chest non-tender, lungs clear, normal breath sounds, no respiratory distress, no accessory muscle use Cardiovascular: regular rate, rhythm, no murmur Abdomen: non tender, + distended Extremities: + pedal edema (2+ bilat) Neurologic/Psychiatric: no motor/sensory deficits, alert, normal mood/affect, oriented x 3 Skin: + jaundice Laboratory Results Last Resulted 05/10/18 06:06 Last Resulted 05/10/18 06:06 Assessment and Plan 63-year-old male admitted on 04 May 2018 for worsening fatigue and cough over the past few weeks. PMH: Decompensated cirrhosis, CHF, COPD, Atrial fibrillation, HLD, HTN, CKD stage 4, electrolyte issues (sodium and potassium), pneumonia, upper GI bleed Healthcare acquired pneumonia: Admit chest x-ray concerning for atelectasis or pneumonitis. Stopped empiric vancomycin. Kept on Levaquin, DCd Zosyn today. Sputum cultures noted heavy normal silvestre. Repeat chest x-ray on 08 May was suggestive of left base pneumonia or aspiration pneumonitis. BCx NGTD. - Prior speech evaluations did not note evidence of aspiration risk (see related note). We will not pursue further workup at this time. COPD exacerbation: Baseline 2 L nasal cannula at night only at home. On his home Advair. Solu-Medrol 80 mg IV daily. Patient has declined DuoNeb's, preferring as needed Combivent. Some acute episodes of shortness of breath as inpatient, responding well to albuterol nebs. - Overall, working to wean off oxygen requirement. 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 Proctor at [facility]. GI onboard here, see related notes. Overall, although patient's meld score is 26. [facility] is pending six months of sobriety (September) before initiating liver transplant workup. - Discussion here of MRCP for evaluation of elevated alk phos but patient is claustrophobic. Liver enzymes have varied between improvement and worsening. Continue discussions on timing of EUS. - S/p paracentesis on 06 May, removing 6 L of fluid. Related ascites fluid culture NGTD. Ongoing albumin dosing. - Repeat paracentesis tomorrow AM - GI recommended possible repeat transabdominal ultrasound to address the ascites burden as well as the pattern of the biliary system including re- measurement of the bile duct. - Repeat therapeutic paracentesis tomorrow DOMINIQUE with history of stage IV CKD: Admit Cr 2.6, presently 2.61 Prior Cr roughly in the mid 1's (1.5 around Nov & January 2018). UA on this admit not suggestive of UTI. FeNa suggests prerenal source, but also concerns with rehydration and hepatorenal syndrome. - Nephrology consulted, see related notes. - Recommended decreased albumin and DC IVF as well as ongoing midodrine and octreotide. Mild confusion and elevated ammonia level: Likely hepatic encephalopathy. Lactulose was initially ordered as TID prn ( with no doses to date). Remains alert and oriented without confusion over past 48 hours. Ammonia levels trended down to normal. Thrombocytopenia: Platelets down to 59. No evidence of acute bleeding. Monitoring. Hyperkalemia: Admit K 5.6. EKG was NSR with first-degree AV block. K 5.1 today. Monitoring. Possible moderate malnutrition: Recommend low-fat, low-salt diet. Nutrition consulted. - Esophageal varices and PUD: Is on Coreg. INR has remained stable around 1.6 - 1.7. Is off anticoagulation due to risk of recurrent GI bleed. - Portal hypertension: On Coreg. - CHF: No evidence of the same on chest imaging. Monitoring. - Paroxysmal A. fib: On Coreg and amiodarone. - Hyperlipidemia: Not on statin due to liver disease. Code status: DO NOT RESUSCITATE Diet: Low-fat, low-sodium diet. DVT prophy: Holding chemical anticoagulation due to recent GI bleed and holding SCD's due to lower extremity edema. PT/OT: Ongoing. Dispo: Admitted to Tele. Lives with at home Resident Physician Supervision Note: I interviewed and examined the patient. Discussed with Dr. Carreno and agree with findings and plan as documented in the note. Any exceptions or clarifications are listed here: None Documented By: Sanford Rodrigues feeling better with breathing no new complaints vitals noted nad breathing unlabored lungs suprisingly clear HCAP - improving - can streamline abx to levaquin alone cirrhosis w ascites, severe liver disease - pt exploring palliative options - which appears quite reasonable. otheriwse as above Resident Tracking Resident Involvement: Resident Care Provided Care Provided: Adult Hospital Medicine
--- NOTE | 2018-05-10 08:03 | GASTROENTEROLOGY PROGRESS NOTE ---
DATE: 05/09/2018 GASTROENTEROLOGY INPATIENT NOTE SUBJECTIVE: Chart reviewed. Patient examined. Patient sitting in bed comfortably, eating lunch. Overall, no acute issues overnight. Patient had evaluation by nephrology. Patient denies any shortness of breath and breathing is comfortable for him. He does continue to have loose stools. MEDICATIONS: Patient underwent a change and increasing albumin dosing to 25 grams IV q. 6, up from 12.5 grams q. 6 and a saline challenge of 1 liter. He continues on levofloxacin and Zosyn. He is also on methylprednisolone daily. I's and O's, patient reports 7 bowel movements yesterday with urine output of approximately 922 mL yesterday, the day before through midnight was 1890. OBJECTIVE: GENERAL: Patient is awake, alert and oriented x3. HEENT: Sclerae are anicteric, conjunctiva moist. HEART: Normal S1, S2. LUNGS: Overall clear to auscultation without wheezes. ABDOMEN: Slightly more tense than yesterday. There is no tenderness. There are positive bowel sounds. EXTREMITIES: Still show +1 edema, although again less tense than the past several days. He continues with features of chronic venous stasis. LABORATORY STUDIES: Today show a decline in white count down to 11. His hemoglobin is 9.4 and overall stable since admission. Platelets are 68,000, which are decreased from yesterday at 91. His LFTs show improvement from yesterday with total bilirubin down to 2.5 from 2.6, AST at 53, down from 77, ALT essentially stable at 49 (50 yesterday) and alkaline phosphatase has declined at 156 (yesterday 189). Albumin is stable at 2.6. However, his BUN and creatinine, continued to rise and today is 85 with creatinine of 2.62, (yesterday 80 and 2.58). IMPRESSION AND PLAN: Renal input noted, adjustments to albumin dosing, addition of octreotide made. From a liver and LFT standpoint, I do not suspect that there is a pattern of ongoing biliary obstruction. However, with his increasing ascites, I believe it is reasonable to repeat paracentesis tomorrow with ultrasound guidance along with an abdominal ultrasound to reassess the biliary tree for either progressive dilation or resolution. It would appear that hepatorenal syndrome is the more likely culprit here. I would continue present medications and obtained a stool for Clostridium difficile given the ongoing loose pattern, although this likely reflects antibiotic-induced diarrhea, sort of Clostridium difficile infection. There is no fever and the white count is resolving. We will continue to follow with you. SUNG
[2018-05-10] MEDS: ALBUMIN HUMAN 25% 12.5 GM/50 ML VIAL IV SCH ×5 (08:41→20:28)
[2018-05-10] MEDS: FLUTICASONE/SALMETEROL (ADVAIR) 500/50 INH 14 PUFF INH SCH ×2 (08:42→20:29)
[2018-05-10] MEDS: MIDODRINE 2.5 MG TAB PO SCH ×3 (08:42→15:41)
[2018-05-10] MEDS: METHYLPREDNISOLONE IV 80 MG in SYRINGE 0 ML IV SCH (08:42)
[2018-05-10] MEDS: PANTOprazole SOD 40 MG TAB PO SCH ×2 (08:43→20:30)
[2018-05-10] MEDS: AMIODARONE 200 MG TAB PO SCH (08:43)
[2018-05-10] MEDS: CARVEDILOL 3.125 MG TAB PO SCH ×2 (08:44→20:30)
[2018-05-10] MEDS: IPRATROPIUM BROMIDE/ALBUTEROL respimat INH INH PRN (08:45)
--- NOTE | 2018-05-10 09:43 | Nephrology Progress Note ---
Nephrology Progress Note Date of Service May 10, 2018. Chief Complaint DOMINIQUE / CKD, HRS Subjective Mr. Crowley was seen & examined in his hospital room this morning. He complains of weakness and abdominal distention. He has begun leaking ascitic fluid from his previous paracentesis site. He reports that his diarrhea has resolved Review of Systems Constitutional: No fever Cardiovascular: No chest pain Respiratory: + dyspnea at rest Abdomen: No pain Extremities: + leg edema A complete review of systems was performed. Pertinent positives are noted above. All other systems are negative. Vital Signs Last 8 Hrs Date Time Temp Pulse Resp B/P (MAP) Pulse Ox O2 Delivery O2 Flow Rate FiO2 05/10/18 07:14 36.8 50 19 117/61 (79) 93 Nasal Cannula 4.0 Last Recorded Weight Weight (Kilograms): 86.600 Physical Exam General Appearance: + pertinent finding (frail, chronically ill appearing) Head: atraumatic (temporal muscle wasting) Eyes: PERRL, sclerae normal Neck: no adenopathy Respiratory/Chest: + wheezing Cardiovascular: regular rate, rhythm Abdomen/GI: non tender (hypoactive bowel sounds), + distended Extremities/Musculoskelatal: + pertinent finding (1+ pretibial pitting edema. 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 H/o heavy alcohol use (last drink 03/22). Laboratory Results Past 24 Hours 05/10/18 06:06 05/10/18 06:06 Test 05/10/18 06:06 Red Blood Count 2.76 M/uL (4.7-6.1) Mean Corpuscular Volume 104.0 fL (80-100) Mean Corpuscular Hemoglobin 35.9 pg (25-34) Mean Corpuscular Hemoglobin Concent 34.5 g/dl (32-36) RDW Standard Deviation 67.4 fL (36.4-46.3) RDW Coefficient of Variation 17.9 % (11.5-14.5) Mean Platelet Volume 9.4 fL (7.4-10.4) Anion Gap 6.0 mmol/L (3-11) Est Creatinine Clear Calc Drug Dose 33.2 ml/min Estimated GFR () 28.8 Estimated GFR (Non- 24.8 BUN/Creatinine Ratio 35.0 (10-20) Calcium Level 7.8 mg/dl (8.5-10.1) Total Bilirubin 2.7 mg/dl (0.2-1) Aspartate Amino Transf (AST/SGOT) 36 U/L (15-37) Alanine Aminotransferase (ALT/SGPT) 46 U/L (12-78) Alkaline Phosphatase 128 U/L (45-117) Total Protein 5.4 gm/dl (6.4-8.2) Albumin 2.9 gm/dl (3.4-5.0) Globulin 2.5 gm/dl (2.5-4.0) Albumin/Globulin Ratio 1.2 (0.9-2) Allergies Coded Allergies: No Known Allergies (Unverified , 05/06/18) Medications Current Inpatient Medications Medications (Trade) Dose Ordered Sig/Franklyn Route Start Time Stop Time Status Last Admin Dose Admin Piperacillin Sod/ Tazobactam Sod 3.375 gm/Dextrose 115 ml @ 28.75 mls/ hr Q8H IV 05/05/18 04:00 05/12/18 03:59 05/10/18 04:25 28.75 MLS/HR Miscellaneous Information (Consult) 1 ea UD PRN N/A 05/04/18 23:30 06/03/18 23:29 Ondansetron HCl (Zofran Inj) 4 mg Q6H PRN IV 05/05/18 00:15 06/04/18 00:14 Levofloxacin 750 mg/Prmx 150 ml @ 100 mls/hr Q48H IV 05/06/18 23:00 05/13/18 22:59 05/09/18 00:32 100 MLS/HR Methylprednisolone Sodium Succinate 80 mg/Syringe 1.28 ml @ 1.5 mls/min DAILY IV 05/05/18 09:00 06/04/18 08:59 05/10/18 08:42 1.5 MLS/MIN Carvedilol (Coreg Tab) 3.125 mg BID PO 05/05/18 01:00 06/04/18 00:59 05/10/18 08:44 3.125 MG Lactulose (Chronulac Syrup) 20 gm TID PRN PO 05/05/18 09:00 06/04/18 08:59 Ergocalciferol (Vitamin D Cap) 50,000 interunit Fr@0900 PO 05/07/18 09:00 06/06/18 08:59 05/07/18 10:57 50,000 INTERUNIT Pantoprazole Sodium (Protonix Tab) 40 mg BID PO 05/05/18 09:00 06/04/18 08:59 05/10/18 08:43 40 MG Levofloxacin (Consult) 1 ea UD PRN N/A 05/05/18 02:00 06/04/18 01:59 Salmeterol Xinafoate/ Fluticasone (Advair Diskus 500/50 Inh) 1 puff BID INH 05/05/18 09:00 06/04/18 08:59 05/10/18 08:42 1 PUFF Albuterol/ Ipratropium (Combivent Respimat Inh) 1 puffs QID PRN INH 05/05/18 02:30 06/04/18 02:29 05/10/18 08:45 1 PUFFS Amiodarone HCl (Cordarone Tab) 200 mg QAM PO 05/06/18 09:00 06/05/18 08:59 05/10/18 08:43 200 MG Midodrine (Proamatine Tab) 7.5 mg 0800,1200,1600 PO 05/08/18 16:00 06/04/18 07:59 05/10/18 08:42 7.5 MG Octreotide Acetate (Sandostatin Inj) 100 mcg Q8H SQ 05/08/18 14:00 06/07/18 13:59 05/10/18 05:45 100 MCG Albumin Human (Albumin 25%) 12.5 gm DAILY@1100,1101 IV 05/09/18 11:00 05/10/18 11:02 05/09/18 12:48 12.5 GM Albuterol Sulfate (Ventolin 0.083% 2.5MG/3ML Neb) 5 mg Q6R PRN INH 05/09/18 12:45 06/08/18 12:44 Hydromorphone HCl (Dilaudid Inj) 0.5 mg Q4H PRN IV 05/09/18 15:15 05/19/18 07:59 05/09/18 21:01 0.5 MG Impression (1) Hepatorenal syndrome (2) DOMINIQUE (acute kidney injury) (3) Chronic kidney disease (4) Cirrhosis (5) Hyponatremia Recommendations Creatinine unchanged despite 1 L 0.9NS IV and 1 g / kg albumin infusion. Lack of improvement is suggestive of HRS. Will reduce SPA to 12.5 g IV QID and continuje Midodrine and Octreotide. Blood pressure and electrolyte balance remain acceptable at this time. Will ask staffing assistant to place elizabeth catheter to allow measurement of UO. BUN is slowly trending upward. Will recheck PRP in am. Prognosis is guarded. If renal function fails to improve or declines, will need to reassess goals of care due to patient's multiple comorbidities and questionable transplant candidacy. HD likely will not improve patient's functional status or quality of life. Primary service has requested palliative care consultation.
[2018-05-10 11:55] VITALS: BP 99/41; PULSE 51; TEMP 36.3; O2SAT 94
--- NOTE | 2018-05-10 15:29 | Palliative Care Consultation ---
Consultation Date of Consultation: May 10, 2018. Requesting Physician: Dr. Abbasi Attending Physician: Dr. Carreno Reason for Consultation: Goals of care History of Present Illness This 63 year old male patient with PMH alcoholic hepatitis, cirrhosis with ascites, COPD, CHF, Afib, and others listed below, presented to the ED six days ago with c/o weakness and SOB. 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 Unfortunately, patient is decompensating and now has hepatorenal syndrome. Paracentesis was performed during this admission, 6L fluid removed. His abdomen remains distended. He is followed here by GI and nephro, also follows with GI at [facility] as outpatient. Blood pressures are marginal. Receiving albumin infusions daily, his albumin level is 2.9 today. Creatinine is 2.61. Dialysis not likely to improve functional status or quality of life if it gets to that point. Palliative care is consulted to establish goals of care. I met with the patient, his Keira Mejia, and his brother in room 212. Patient is awake, alert and oriented x4. He c/o weakness and SOB that worsens with any activity. He appears chronically ill and deconditioned, abdomen is very large and distended. Patient stated, "I still have a little fight left in me," when we discussed goals of care. He states he wants to continue full treatment for now in hopes that he might improve enough to get back home with his and eventually get on transplant list. At the same time, patient states that he would never want his life to be prolonged in a state of poor quality. He says that when he gets to the point of "no return," he would want to go home with his for hospice care. He just does not feel like he is there yet. Past Medical/Surgical History Medical History: (1) Acute renal failure (2) Acute renal insufficiency (3) Acute respiratory failure (4) Acute respiratory failure with hypoxia (5) DOMINIQUE (acute kidney injury) (6) Altered mental status (7) Anemia (8) Atrial fibrillation with RVR (9) Autoimmune hepatitis (10) Bilateral lower leg cellulitis (11) Chest pressure (12) CHF (congestive heart failure) (13) CHF (congestive heart failure) (14) CHF exacerbation (15) Cirrhosis (16) COPD (chronic obstructive pulmonary disease) (17) COPD (chronic obstructive pulmonary disease) (18) COPD exacerbation (19) Dehydration (20) Dehydration (21) Elevated liver enzymes (22) Febrile illness (23) Hepatorenal syndrome (24) Hypokalemia (25) Hypokalemia (26) Hypokalemia (27) Hyponatremia (28) Hyponatremia (29) Hypoxia (30) Lower extremity edema (31) pna (32) PNA (pneumonia) (33) Pneumonia (34) Ruptured varicosity (35) Sepsis (36) SIRS (systemic inflammatory response syndrome) (37) SOB (shortness of breath) (38) Symptomatic bradycardia (39) Upper GI bleed Social History Smoking Status: Never Smoker History of Alcohol Use: No Drug Use: none Marital Status: Housing Status: lives with significant other Occupation Status: employed Review of Systems Constitutional: + weakness, + fatigue ENT: No trouble swallowing Respiratory: + dyspnea on exertion, No cough, No sputum Cardiac: + edema, No chest pain Abdomen: + see HPI, No pain, No nausea, No vomiting Male : No problem reported Psychiatric: No depression symptoms, No anxiety Allergies Coded Allergies: No Known Allergies (Unverified , 05/06/18) Medications Current Inpatient Medications Medications (Trade) Dose Ordered Sig/Franklyn Route Start Time Stop Time Status Last Admin Dose Admin Piperacillin Sod/ Tazobactam Sod 3.375 gm/Dextrose 115 ml @ 28.75 mls/ hr Q8H IV 05/05/18 04:00 05/12/18 03:59 05/10/18 04:25 28.75 MLS/HR Miscellaneous Information (Consult) 1 ea UD PRN N/A 05/04/18 23:30 06/03/18 23:29 Ondansetron HCl (Zofran Inj) 4 mg Q6H PRN IV 05/05/18 00:15 06/04/18 00:14 Levofloxacin 750 mg/Prmx 150 ml @ 100 mls/hr Q48H IV 05/06/18 23:00 05/13/18 22:59 05/09/18 00:32 100 MLS/HR Methylprednisolone Sodium Succinate 80 mg/Syringe 1.28 ml @ 1.5 mls/min DAILY IV 05/05/18 09:00 06/04/18 08:59 05/10/18 08:42 1.5 MLS/MIN Carvedilol (Coreg Tab) 3.125 mg BID PO 05/05/18 01:00 06/04/18 00:59 05/10/18 08:44 3.125 MG Lactulose (Chronulac Syrup) 20 gm TID PRN PO 05/05/18 09:00 06/04/18 08:59 Ergocalciferol (Vitamin D Cap) 50,000 interunit Fr@0900 PO 05/07/18 09:00 06/06/18 08:59 05/07/18 10:57 50,000 INTERUNIT Pantoprazole Sodium (Protonix Tab) 40 mg BID PO 05/05/18 09:00 06/04/18 08:59 05/10/18 08:43 40 MG Levofloxacin (Consult) 1 ea UD PRN N/A 05/05/18 02:00 06/04/18 01:59 Salmeterol Xinafoate/ Fluticasone (Advair Diskus 500/50 Inh) 1 puff BID INH 05/05/18 09:00 06/04/18 08:59 05/10/18 08:42 1 PUFF Albuterol/ Ipratropium (Combivent Respimat Inh) 1 puffs QID PRN INH 05/05/18 02:30 06/04/18 02:29 05/10/18 08:45 1 PUFFS Amiodarone HCl (Cordarone Tab) 200 mg QAM PO 05/06/18 09:00 06/05/18 08:59 05/10/18 08:43 200 MG Midodrine (Proamatine Tab) 7.5 mg 0800,1200,1600 PO 05/08/18 16:00 06/04/18 07:59 05/10/18 08:42 7.5 MG Octreotide Acetate (Sandostatin Inj) 100 mcg Q8H SQ 05/08/18 14:00 06/07/18 13:59 05/10/18 05:45 100 MCG Albuterol Sulfate (Ventolin 0.083% 2.5MG/3ML Neb) 5 mg Q6R PRN INH 05/09/18 12:45 06/08/18 12:44 Hydromorphone HCl (Dilaudid Inj) 0.5 mg Q4H PRN IV 05/09/18 15:15 05/19/18 07:59 05/09/18 21:01 0.5 MG Albumin Human (Albumin 25%) 12.5 gm 4XDQ4H IV 05/10/18 11:00 05/12/18 07:01 Physical Exam Date Time Temp Pulse Resp B/P (MAP) Pulse Ox O2 Delivery O2 Flow Rate FiO2 05/10/18 07:14 36.8 50 19 117/61 (79) 93 Nasal Cannula 4.0 05/09/18 23:50 36.3 50 18 111/54 (73) 93 Nasal Cannula 4.0 05/09/18 20:00 94 Nasal Cannula 4.0 05/09/18 15:45 36.3 53 18 121/51 (74) 94 Nasal Cannula 4.0 05/09/18 12:53 55 18 96 Nasal Cannula 4.0 05/09/18 12:00 36.5 55 16 104/51 (68) 94 Nasal Cannula General Appearance: no apparent distress, + pertinent finding (deconditioned, chronically ill-appearing) ENT: hearing grossly normal Neck: supple, no JVD Respiratory: no respiratory distress, no accessory muscle use, + decreased breath sounds (bilateral bases), + wheezing (expiratory) Cardiovascular: regular rate, rhythm, + normal peripheral pulses Abdomen: normal bowel sounds, + distended Neurologic/Psychiatric: alert, normal mood/affect, oriented x 3 Skin: normal color Laboratory Results Last 24 Hours Test 05/10/18 06:06 White Blood Count 11.97 K/uL Red Blood Count 2.76 M/uL Hemoglobin 9.9 g/dL Hematocrit 28.7 % Mean Corpuscular Volume 104.0 fL Mean Corpuscular Hemoglobin 35.9 pg Mean Corpuscular Hemoglobin Concent 34.5 g/dl RDW Standard Deviation 67.4 fL RDW Coefficient of Variation 17.9 % Platelet Count 59 K/uL Mean Platelet Volume 9.4 fL Sodium Level 135 mmol/L Potassium Level 5.1 mmol/L Chloride Level 102 mmol/L Carbon Dioxide Level 27 mmol/L Anion Gap 6.0 mmol/L Blood Urea Nitrogen 91 mg/dl Creatinine 2.61 mg/dl Est Creatinine Clear Calc Drug Dose 33.2 ml/min Estimated GFR () 28.8 Estimated GFR (Non- 24.8 BUN/Creatinine Ratio 35.0 Random Glucose 149 mg/dl Calcium Level 7.8 mg/dl Total Bilirubin 2.7 mg/dl Aspartate Amino Transf (AST/SGOT) 36 U/L Alanine Aminotransferase (ALT/SGPT) 46 U/L Alkaline Phosphatase 128 U/L Total Protein 5.4 gm/dl Albumin 2.9 gm/dl Globulin 2.5 gm/dl Albumin/Globulin Ratio 1.2 Assessment & Plan Palliative Performance Scale: 50 % Problem list: Weakness Pneumonia Cirrhosis with ascites Goals of care Palliative care recs: -Patient is DNR, as ordered on admission. -Discussed with patient, his , and his brother. Patient wishes to continue on with full treatment at this time. -He did state that if he gets to the point of little quality of life or without chance of meaningful recovery, he would want to go home with his on hospice care. However, he "still has a little fight left" in him. I explained hospice care so that he and family know options. -Patient has signs of end stage liver disease with large amount of ascites, hepatorenal syndrome, and elevated PT/INR. Will follow during hospitalization as patient may not be able to turn the corner. Prognosis remains guarded. -POLST form would be helpful prior to discharge which I will offer. -For now, continue current medical management. Thank you kindly for this consult. I will follow as needed. Total time spent 70 minutes with >50% of time spent at bedside with patient and family counseling and discussing goals of care.
[2018-05-10 15:48] VITALS: BP 107/51; PULSE 50; TEMP 36.4; O2SAT 94
[2018-05-10 20:19] VITALS: BP 121/54; PULSE 51; TEMP 36.4; O2SAT 92
[2018-05-10] MEDS: HYDROmorphone INJ 0.5 MG/0.5 ML SYR IV PRN (23:02)
[2018-05-10] MEDS: LEVOFLOXACIN / D5W 750 MG in PREMIXED IN D5W 150 ML IV SCH (23:46)
[2018-05-11] VITALS (10 sets, daily range): BP systolic 111–131; BP diastolic 50–73; PULSE 50–56; TEMP 36.2–36.8; O2SAT 92–97
--- NOTE | 2018-05-11 00:44 | GASTROENTEROLOGY PROGRESS NOTE ---
DATE: 05/10/2018 SUBJECTIVE: Chart reviewed, patient examined. The patient clinically doing a little bit better, although feels a more full sense in the abdomen. His stools have become slightly more thickened. There is no blood described. His appetite is good. He does report urine output and his albumin dose was increased. Additionally, his albumin is continued at 12.5 g 4 times daily. OTHER MEDICATIONS: Include albuterol, midodrine, octreotide drip has been started, vitamin D, levofloxacin, amiodarone, methylprednisolone 80 mg daily, pantoprazole, lactulose, albuterol, carvedilol, and ondansetron. LABORATORY STUDIES: Today, white count 11.97, up slightly from yesterday. Hemoglobin stable at 9.9, platelets 59,000, which are slightly decreased. LFTs show that bilirubin is slightly up at 2.7, although AST continues to fall and is 36 today, ALT 46, and alkaline phosphatase also continue to decline at 128. Albumin is increased to 2.9 from 2.6 yesterday. Potassium is normal at 5.1 with a sodium of 135. However, BUN is slightly elevated at 91 compared with 85, but creatinine is 2.61, stable from 2.62 yesterday. PHYSICAL EXAMINATION: VITAL SIGNS: Today, the patient is afebrile at 36.4, blood pressure 107/51, respirations 15, pulse 50, pulse ox 94% on 4.5 liters. The patient is using a metered dose inhaler. GENERAL: The patient is awake, alert, and oriented x3. HEENT: Sclerae are anicteric. Oral mucosa is moist. HEART: Normal S1, S2. LUNGS: Breath sounds show wheezes throughout the chest bilaterally. There are no crackles, although breath sounds at the bases are somewhat diminished. ABDOMEN: More tense than yesterday, but nontender. There is no rebound or guarding. There are positive bowel sounds. EXTREMITIES: Show +1 pitting edema, unchanged from yesterday. IMPRESSION AND PLAN: Regarding his renal function, Nephrology input noted. In addition, a palliative care consultation has been requested and performed. The patient is currently DNR. At the present time with his end-stage renal disease, hepatorenal syndrome, and elevated INR, the patient is realistic about his overall prognosis. Nevertheless, he would like to continue with current therapy to see if his overall health status can stabilize and perhaps improve. We will plan for a paracentesis tomorrow with albumin replacement. Would continue current therapy as outlined by nephrology regarding his renal function. All questions answered. Dr. Nuno will be covering the service over the next few days starting tomorrow. SUNG
[2018-05-11] MEDS: OCTREOTIDE ACETATE 100 MCG/ML VIAL SQ SCH ×3 (06:09→21:23)
--- NOTE | 2018-05-11 06:55 | Family Medicine Progress Note ---
Progress Note Date of Service May 11, 2018. Subjective Pt evaluation today including: conversation w/ patient, physical exam, chart review, lab review, review of inpatient medication list Pain: Reports some tightening in his stomach causing discomfort PO Intake: NPO from midnight for paracentesis today Voiding: no voiding problems Patient reports he is a little confused this am, mostly about what is happening this morning. When asked if he knows where he is, he states that he does but does not offer an answer. Upon reminder, he does note that he recalls that we are going to be taking fluid off of belly today. Constitutional: No fever, No chills Respiratory: + cough, + sputum, + wheezing, + dyspnea at rest Cardiovascular: + edema, No chest pain Abdomen: + pain Male : No dysuria Neurologic: + numbness/tingling Psychiatric: + anhedonism All Other Systems: Reviewed and Negative Medications Current Inpatient Medications Medications (Trade) Dose Ordered Sig/Franklyn Route Start Time Stop Time Status Last Admin Dose Admin Ondansetron HCl (Zofran Inj) 4 mg Q6H PRN IV 05/05/18 00:15 06/04/18 00:14 Levofloxacin 750 mg/Prmx 150 ml @ 100 mls/hr Q48H IV 05/06/18 23:00 05/13/18 22:59 05/10/18 23:46 100 MLS/HR Methylprednisolone Sodium Succinate 80 mg/Syringe 1.28 ml @ 1.5 mls/min DAILY IV 05/05/18 09:00 06/04/18 08:59 05/10/18 08:42 1.5 MLS/MIN Carvedilol (Coreg Tab) 3.125 mg BID PO 05/05/18 01:00 06/04/18 00:59 05/10/18 08:44 3.125 MG Lactulose (Chronulac Syrup) 20 gm TID PRN PO 05/05/18 09:00 06/04/18 08:59 Ergocalciferol (Vitamin D Cap) 50,000 interunit Fr@0900 PO 05/07/18 09:00 06/06/18 08:59 05/07/18 10:57 50,000 INTERUNIT Pantoprazole Sodium (Protonix Tab) 40 mg BID PO 05/05/18 09:00 06/04/18 08:59 05/10/18 20:30 40 MG Levofloxacin (Consult) 1 ea UD PRN N/A 05/05/18 02:00 06/04/18 01:59 Salmeterol Xinafoate/ Fluticasone (Advair Diskus 500/50 Inh) 1 puff BID INH 05/05/18 09:00 06/04/18 08:59 05/10/18 20:29 1 PUFF Albuterol/ Ipratropium (Combivent Respimat Inh) 1 puffs QID PRN INH 05/05/18 02:30 06/04/18 02:29 05/10/18 08:45 1 PUFFS Amiodarone HCl (Cordarone Tab) 200 mg QAM PO 05/06/18 09:00 06/05/18 08:59 05/10/18 08:43 200 MG Midodrine (Proamatine Tab) 7.5 mg 0800,1200,1600 PO 05/08/18 16:00 06/04/18 07:59 05/10/18 15:41 7.5 MG Octreotide Acetate (Sandostatin Inj) 100 mcg Q8H SQ 05/08/18 14:00 06/07/18 13:59 05/11/18 06:09 100 MCG Albuterol Sulfate (Ventolin 0.083% 2.5MG/3ML Neb) 5 mg Q6R PRN INH 05/09/18 12:45 06/08/18 12:44 Hydromorphone HCl (Dilaudid Inj) 0.5 mg Q4H PRN IV 05/09/18 15:15 05/19/18 07:59 05/10/18 23:02 0.5 MG Albumin Human (Albumin 25%) 12.5 gm 4XDQ4H IV 05/10/18 11:00 05/12/18 07:01 05/10/18 20:28 12.5 GM Objective Vital Signs Date Time Temp Pulse Resp B/P (MAP) Pulse Ox O2 Delivery O2 Flow Rate FiO2 05/11/18 03:46 36.8 56 17 112/52 (72) 95 Nasal Cannula 4.5 05/11/18 00:15 36.7 52 19 114/53 (73) 96 Nasal Cannula 4.5 05/10/18 20:19 36.4 51 16 121/54 (76) 92 Nasal Cannula 4.5 05/10/18 20:00 Nasal Cannula 3.0 05/10/18 15:48 36.4 50 15 107/51 (69) 94 Nasal Cannula 4.5 05/10/18 11:55 36.3 51 24 99/41 (60) 94 Nasal Cannula 4.0 05/10/18 08:00 Nasal Cannula 4.0 05/10/18 07:14 36.8 50 19 117/61 (79) 93 Nasal Cannula 4.0 Physical Exam General Appearance: WD/WN, no apparent distress Eyes: PERRL, EOMI, + abnormal sclerae exam (icterus) ENT: hearing grossly normal Neck: no carotid bruits, trachea midline Respiratory/Chest: no respiratory distress, no accessory muscle use, + wheezing (expiratory) Cardiovascular: + bradycardia (SR with 1st degree HB on monitor) Abdomen: non tender, + distended Extremities: no calf tenderness, + pedal edema (2+ to shins) Neurologic/Psychiatric: + depressed affect Skin: + jaundice Laboratory Results Last Resulted 05/11/18 06:55 Last Resulted 05/11/18 06:55 Assessment and Plan 63-year-old male admitted on 04 May 2018 for worsening fatigue and cough over the past few weeks. PMH: Decompensated cirrhosis, CHF, COPD, Atrial fibrillation, HLD, HTN, CKD stage 4, electrolyte issues (sodium and potassium), pneumonia, upper GI bleed Healthcare acquired pneumonia: Admit chest x-ray concerning for atelectasis or pneumonitis. DCd empiric vancomycin, zosyn. Currently on Levaquin Sputum cultures noted heavy normal silvestre. Repeat chest x-ray on 08 May was suggestive of left base pneumonia or aspiration pneumonitis. BCx NGTD. - Prior speech evaluations did not note evidence of aspiration risk (see related note). We will not pursue further workup at this time. COPD exacerbation: -Baseline 2 L nasal cannula at night only at home. Has been on 3-4.5L NC -On his home Advair. -Solu-Medrol 80 mg IV daily. -Patient has declined DuoNeb's, preferring as needed Combivent. Some acute episodes of shortness of breath as inpatient, responding well to albuterol nebs. -Overall, working to wean off oxygen requirement. 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 Proctor at [facility]. GI onboard here, see related notes. Overall, although patient's meld score is 26. [facility] is pending six months of sobriety (September) before initiating liver transplant workup. - Discussion here of MRCP for evaluation of elevated alk phos but patient is claustrophobic. Liver enzymes have varied between improvement and worsening. Continue discussions on timing of EUS. - S/p paracentesis on 06 May, removing 6 L of fluid. Related ascites fluid culture NGTD. - Due for paracentesis today and will receive ongoing albumin dosing. - GI recommended repeat transabdominal ultrasound to address the ascites burden as well as the pattern of the biliary system including re-measurement of the bile duct. DOMINIQUE with history of stage IV CKD: - Admit Cr 2.6, presently 2.56 - Prior Cr roughly in the mid 1's (January 2018). UA on admit not suggestive of UTI. FeNa suggests prerenal source, but also concerns with rehydration and hepatorenal syndrome. - Nephrology consulted, see related notes. - Recommended decreased albumin and DC IVF as well as ongoing midodrine and octreotide. Mild confusion and elevated ammonia level: Likely hepatic encephalopathy. Lactulose was initially ordered as TID prn ( with no doses to date). Remains A&O w/o confusion over past 48 hrs. Ammonia levels trended down to nl. Thrombocytopenia: Platelets down to 57. No evidence of acute bleeding. Monitoring. Hyperkalemia: Admit K 5.6. EKG was NSR with first-degree AV block. K 5.0 today. Monitoring. Possible moderate malnutrition: Recommend low-fat, low-salt diet. Nutrition consulted. - Esophageal varices and PUD: Is on Coreg. INR has remained stable around 1.6 - 1.7. Is off anticoagulation due to risk of recurrent GI bleed. - Portal hypertension: On Coreg. - CHF: No evidence of the same on chest imaging. Monitoring. - Paroxysmal A. fib: On Coreg and amiodarone. - Hyperlipidemia: Not on statin due to liver disease. Code status: DO NOT RESUSCITATE Diet: Low-fat, low-sodium diet. DVT prophy: Holding chemical anticoagulation due to recent GI bleed and holding SCD's due to lower extremity edema. PT/OT: Ongoing. Dispo: Admitted to Tele. Lives with at home Resident Physician Supervision Note: I interviewed and examined the patient. Discussed with Dr. Carreno and agree with findings and plan as documented in the note. Any exceptions or clarifications are listed here: None Documented By: Sanford Rodrigues breathing feels good, belly feels better after 5L vitals noted nad breathing unlabored lungs suprisingly clear HCAP - improving - stable for med surg, wean O2, may need at home cirrhosis w ascites, severe liver disease - currently wants to see how he does sober, with hopes that his function may stabilize or improve some. not ready for a fully palliative approach otherwise as above Resident Tracking Resident Involvement: Resident Care Provided Care Provided: Adult Hospital Medicine
[2018-05-11 07:07] LABS: HEMATOCRIT 29.8 % (42-52); HEMOGLOBIN 9.8 g/dL (14.0-18.0); MEAN CELL VOLUME 104.6 fL (80-100); MEAN CORPUSCULAR HEMOGLOBIN 34.4 pg (25-34); MEAN CORPUSCULAR HGB CONC 32.9 g/dl (32-36); RED CELL DISTRIBUTION WIDTH SD 67.5 fL (36.4-46.3); WHITE BLOOD COUNT 16.37 K/uL (4.8-10.8)
[2018-05-11 07:19] LABS: MEAN PLATELET VOLUME 10.7 fL (7.4-10.4); PLATELET COUNT 57 K/uL (130-400)
[2018-05-11 07:43] LABS: CALCIUM 7.8 mg/dl (8.5-10.1); CREATININE 2.56 mg/dl (0.60-1.40)
[2018-05-11] MEDS: ALBUMIN HUMAN 25% 12.5 GM/50 ML VIAL IV SCH ×3 (08:14→18:02)
[2018-05-11] MEDS: CARVEDILOL 3.125 MG TAB PO SCH ×2 (09:00→21:00)
[2018-05-11] MEDS: FLUTICASONE/SALMETEROL (ADVAIR) 500/50 INH 14 PUFF INH SCH ×2 (10:00→21:22)
[2018-05-11] MEDS: METHYLPREDNISOLONE IV 80 MG in SYRINGE 0 ML IV SCH (10:00)
[2018-05-11] MEDS: PANTOprazole SOD 40 MG TAB PO SCH ×2 (10:01→21:22)
[2018-05-11] MEDS: MIDODRINE 2.5 MG TAB PO SCH ×3 (10:01→16:09)
[2018-05-11] MEDS: AMIODARONE 200 MG TAB PO SCH (10:01)
--- NOTE | 2018-05-11 11:02 | DIAGNOSTIC IMAGING REPORT ---
PARACENTESIS ABDOMEN W/IMAGING CLINICAL HISTORY: Cirrhotic liver disease ascites COMPARISON STUDY: No previous studies for comparison. PROCEDURE: The risks, benefits, and alternatives to the procedure were discussed with the patient including the risk of bleeding, infection and injury to adjacent structures. The patient agreed to the procedure and informed written consent was obtained. The procedure was performed by Dr. Fitzgerald following a time out. Following real-time ultrasound localization, the skin was prepped and draped. Following local anesthesia with Xylocaine, the sheath paracentesis needle was inserted and approximately 5 liters of straw-colored fluid was removed by vacuum suction. The patient tolerated the procedure well and no immediate complications were evident. IMPRESSION: Ultrasound-guided paracentesis with removal of 5 liters of ascites. The above report was generated using voice recognition software. It may contain grammatical, syntax or spelling errors. Electronically signed by: Raymundo Fitzgerald M.D. 05/11/2018 11:00 AM Dictated Date/Time: 05/11/2018 11:00 AM
--- NOTE | 2018-05-11 11:08 | DIAGNOSTIC IMAGING REPORT ---
BILIARY ABDOMEN LIMITED CLINICAL HISTORY: elevated LFTs, enlarged CBD on prev exam TECHNIQUE: Ultrasound COMPARISON STUDY: 05/05/2018 FINDINGS: Small amount of ascites. Somewhat heterogeneous liver configuration without a cortical scarring suggesting cirrhotic change. , A show a moderate amount of sludge and small gallstones within the gallbladder lumen. Common bile duct to 1.3 cm essentially unchanged in the prior study. No intrahepatic biliary distention. Right kidney is negative for hydronephrosis. 6 cm upper pole exophytic cyst. IMPRESSION: 1. Hepatic cirrhosis unchanged. 2. Gallbladder contains gallstones and sludge similar to the prior study. 3. Common bile duct is distended to 1.3 cm essentially unaltered from the prior study. 4. Trace upper quadrant ascites. 5. 6 cm upper pole right renal cyst. The above report was generated using voice recognition software. It may contain grammatical, syntax or spelling errors. Electronically signed by: Raymundo Fitzgerald M.D. 05/11/2018 11:07 AM Dictated Date/Time: 05/11/2018 11:03 AM
--- NOTE | 2018-05-11 12:08 | Nephrology Progress Note ---
Nephrology Progress Note Date of Service May 11, 2018. Chief Complaint DOMINIQUE / CKD, HRS Subjective Mr. Crowley was seen & examined in his hospital room this afternoon. He refuses Devries catheter insertion but notes that he has "good urine output". He has just returned from paracentesis. He reports 5 L volume removal this morning. Review of Systems Constitutional: No fever Cardiovascular: No chest pain Respiratory: No dyspnea at rest Abdomen: No nausea, No vomiting Extremities: + leg edema A complete review of systems was performed. Pertinent positives are noted above. All other systems are negative. Vital Signs Last 8 Hrs Date Time Temp Pulse Resp B/P (MAP) Pulse Ox O2 Delivery O2 Flow Rate FiO2 05/11/18 11:50 36.3 50 18 118/51 (73) 97 Nasal Cannula 3.0 05/11/18 07:40 36.3 50 18 111/50 (70) 96 Nasal Cannula 5.0 Last Recorded Weight Weight (Kilograms): 103.700 Physical Exam General Appearance: no apparent distress Head: atraumatic (temporal muscle wasting) Eyes: PERRL, EOMI Respiratory/Chest: lungs clear, no respiratory distress Cardiovascular: regular rate, rhythm Abdomen/GI: non tender (less distended. 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 H/o heavy alcohol use (last drink 03/22). Laboratory Results Past 24 Hours 05/11/18 06:55 05/11/18 06:55 Test 05/11/18 06:55 Red Blood Count 2.85 M/uL (4.7-6.1) Mean Corpuscular Volume 104.6 fL (80-100) Mean Corpuscular Hemoglobin 34.4 pg (25-34) Mean Corpuscular Hemoglobin Concent 32.9 g/dl (32-36) RDW Standard Deviation 67.5 fL (36.4-46.3) RDW Coefficient of Variation 18.0 % (11.5-14.5) Mean Platelet Volume 10.7 fL (7.4-10.4) Anion Gap 8.0 mmol/L (3-11) Est Creatinine Clear Calc Drug Dose 37.4 ml/min Estimated GFR () 29.5 Estimated GFR (Non- 25.4 BUN/Creatinine Ratio 38.0 (10-20) Calcium Level 7.8 mg/dl (8.5-10.1) Allergies Coded Allergies: No Known Allergies (Unverified , 05/06/18) Medications Current Inpatient Medications Medications (Trade) Dose Ordered Sig/Franklyn Route Start Time Stop Time Status Last Admin Dose Admin Ondansetron HCl (Zofran Inj) 4 mg Q6H PRN IV 05/05/18 00:15 06/04/18 00:14 Levofloxacin 750 mg/Prmx 150 ml @ 100 mls/hr Q48H IV 05/06/18 23:00 05/13/18 22:59 05/10/18 23:46 100 MLS/HR Methylprednisolone Sodium Succinate 80 mg/Syringe 1.28 ml @ 1.5 mls/min DAILY IV 05/05/18 09:00 06/04/18 08:59 05/11/18 10:00 1.5 MLS/MIN Carvedilol (Coreg Tab) 3.125 mg BID PO 05/05/18 01:00 06/04/18 00:59 05/10/18 08:44 3.125 MG Lactulose (Chronulac Syrup) 20 gm TID PRN PO 05/05/18 09:00 06/04/18 08:59 Ergocalciferol (Vitamin D Cap) 50,000 interunit Fr@0900 PO 05/07/18 09:00 06/06/18 08:59 05/07/18 10:57 50,000 INTERUNIT Pantoprazole Sodium (Protonix Tab) 40 mg BID PO 05/05/18 09:00 06/04/18 08:59 05/11/18 10:01 40 MG Levofloxacin (Consult) 1 ea UD PRN N/A 05/05/18 02:00 06/04/18 01:59 Salmeterol Xinafoate/ Fluticasone (Advair Diskus 500/50 Inh) 1 puff BID INH 05/05/18 09:00 06/04/18 08:59 05/11/18 10:00 1 PUFF Albuterol/ Ipratropium (Combivent Respimat Inh) 1 puffs QID PRN INH 05/05/18 02:30 06/04/18 02:29 05/10/18 08:45 1 PUFFS Amiodarone HCl (Cordarone Tab) 200 mg QAM PO 05/06/18 09:00 06/05/18 08:59 05/11/18 10:01 200 MG Midodrine (Proamatine Tab) 7.5 mg 0800,1200,1600 PO 05/08/18 16:00 06/04/18 07:59 05/11/18 10:01 7.5 MG Octreotide Acetate (Sandostatin Inj) 100 mcg Q8H SQ 05/08/18 14:00 06/07/18 13:59 05/11/18 06:09 100 MCG Albuterol Sulfate (Ventolin 0.083% 2.5MG/3ML Neb) 5 mg Q6R PRN INH 05/09/18 12:45 06/08/18 12:44 Hydromorphone HCl (Dilaudid Inj) 0.5 mg Q4H PRN IV 05/09/18 15:15 05/19/18 07:59 05/10/18 23:02 0.5 MG Albumin Human (Albumin 25%) 12.5 gm Q6H IV 05/11/18 12:00 05/12/18 06:01 Impression (1) Hepatorenal syndrome (2) DOMINIQUE (acute kidney injury) (3) Chronic kidney disease (4) Cirrhosis (5) Hyponatremia Recommendations Creatinine unchanged despite 1 L 0.9NS IV and 1 g / kg albumin infusion. Lack of improvement is suggestive of HRS. Will reduce SPA to 25 g IV daily and continue until serum albumin is 3.0 or greater. Will continue Midodrine and Octreotide for additional 48 hours and then stop Octreotide. Blood pressure and electrolyte balance remain acceptable at this time. Patient refused Devries catheter. I have asked that he use a urinal to allow measurement of UO. BUN continues to slowly trending upward. Will recheck PRP in am. Prognosis is guarded. If renal function fails to improve or declines, will need to reassess goals of care due to patient's multiple comorbidities and questionable transplant candidacy. HD likely will not improve patient's functional status or quality of life. Palliative care consult has been reviewed - patient is requiring large volume paracentesis every 5 days. Mr. Crowley and his family understand his poor prognosis and are considering home hospice care.
--- NOTE | 2018-05-11 14:11 | Palliative Care Progress Note ---
Palliative Care Progress Note Date of Service May 11, 2018. Subjective Pt evaluation today including: conversation w/ patient, physical exam, chart review, conversation w/ managed services consultant (Dr. Rodrigues) Pain: none Patient was tired this morning after his paracentesis, but reports great relief of discomfort after 5L ascitic fluid drained. Patient was somewhat confused about palliative vs. hospice care. We discussed this again. Patient states he is still wanting to pursue full treatment for now, but not CPR/intubation. Review of Systems Constitutional: + weakness ENT: No trouble swallowing Respiratory: + dyspnea on exertion, No cough, No shortness of breath Cardiac: + edema, No chest pain Abdomen: No pain, No nausea, No vomiting Male : No problem reported Psychiatric: No anxiety Objective Vital Signs Date Time Temp Pulse Resp B/P (MAP) Pulse Ox O2 Delivery O2 Flow Rate FiO2 05/11/18 12:48 50 16 128/59 (82) 94 Nasal Cannula 3.0 05/11/18 11:50 36.3 50 18 118/51 (73) 97 Nasal Cannula 3.0 05/11/18 08:00 Nasal Cannula 3.0 05/11/18 07:40 36.3 50 18 111/50 (70) 96 Nasal Cannula 5.0 05/11/18 03:46 36.8 56 17 112/52 (72) 95 Nasal Cannula 4.5 05/11/18 00:15 36.7 52 19 114/53 (73) 96 Nasal Cannula 4.5 05/10/18 20:19 36.4 51 16 121/54 (76) 92 Nasal Cannula 4.5 05/10/18 20:00 Nasal Cannula 3.0 05/10/18 15:48 36.4 50 15 107/51 (69) 94 Nasal Cannula 4.5 Physical Exam General Appearance: no apparent distress, + pertinent finding (chronically ill appearing) ENT: hearing grossly normal Neck: supple, no JVD Respiratory/Chest: no respiratory distress, no accessory muscle use, + decreased breath sounds, + wheezing (expiratory, faint) Cardiovascular: regular rate, rhythm, + normal peripheral pulses, + pertinent finding (pitting edema to BLE) Abdomen: normal bowel sounds, soft, + distended Neurologic/Psychiatric: alert, normal mood/affect, oriented x 3 (some mild forgetfulness) Laboratory Results Last 24 Hours Test 05/11/18 06:55 White Blood Count 16.37 K/uL Red Blood Count 2.85 M/uL Hemoglobin 9.8 g/dL Hematocrit 29.8 % Mean Corpuscular Volume 104.6 fL Mean Corpuscular Hemoglobin 34.4 pg Mean Corpuscular Hemoglobin Concent 32.9 g/dl RDW Standard Deviation 67.5 fL RDW Coefficient of Variation 18.0 % Platelet Count 57 K/uL Mean Platelet Volume 10.7 fL Sodium Level 137 mmol/L Potassium Level 5.0 mmol/L Chloride Level 102 mmol/L Carbon Dioxide Level 27 mmol/L Anion Gap 8.0 mmol/L Blood Urea Nitrogen 97 mg/dl Creatinine 2.56 mg/dl Est Creatinine Clear Calc Drug Dose 37.4 ml/min Estimated GFR () 29.5 Estimated GFR (Non- 25.4 BUN/Creatinine Ratio 38.0 Random Glucose 120 mg/dl Calcium Level 7.8 mg/dl Assessment and Plan Problem list: Weakness Pneumonia Cirrhosis with ascites Goals of care Palliative care recs: -Patient is DNR/DNI. -His goal is to "get better and stronger" and continue with treatment. His ultimate goal is to make it till September when he can get on the transplant list. At the same time, patient is realistic and understands that he may not be well enough for that to happen. For now, he DOES NOT want to pursue hospice- type care. -Continue current medical management. -Many hurdles before patient can be discharged-- he is on albumin infusions, need to come up with plan for paracenteses as outpatient, etc. Uncertain if patient is strong enough to get home at this time. -Will follow peripherally for now. Total time spent 25 minutes with >50% of time spent at bedside with patient discussing goals of care. Palliative Performance Scale: 50 %
[2018-05-11] MEDS: HYDROmorphone INJ 0.5 MG/0.5 ML SYR IV PRN ×2 (14:30→21:23)
--- NOTE | 2018-05-11 16:48 | PROGRESS NOTE ---
DATE: 05/11/2018 SUBJECTIVE: The patient reports that he is feeling better following a 5-liter paracentesis earlier today. He is having less abdominal discomfort. His mental status is actually fairly coherent without any gross evidence of encephalopathy. PHYSICAL EXAMINATION: EXTREMITIES: The patient has multiple ecchymoses on his upper arms and forearms. He has got severe venous stasis in his lower extremities with 3+ edema. There is no scrotal edema. ABDOMEN: Shows evidence of some leakage at the paracentesis sites, both in the left and right lower quadrants. There is no abdominal tenderness. VITAL SIGNS: Blood pressure is 128/59, pulse 50, respirations 16, hemoglobin 9.8, white count 16.37, platelets are 57,000. LABORATORY DATA: Sodium 137, potassium 5, BUN 97, creatinine is 2.56. 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 His liver disease is also complicated by refractory ascites. Obviously, he has a bad prognosis. His renal insufficiency is being managed by the nephrologists and appears relatively stable at this point in time, but his prospects for liver transplant in September are poor given his current condition and underlying health problems. The patient is aware of this and has been seen by palliative care physician who has made him DNR, but is getting palliative care, but not hospice. We will continue to follow the patient. SUNG
[2018-05-12] VITALS (9 sets, daily range): BP systolic 116–124; BP diastolic 57–65; PULSE 49–53; TEMP 36.3–36.4; O2SAT 90–95
[2018-05-12] MEDS: ALBUMIN HUMAN 25% 12.5 GM/50 ML VIAL IV SCH ×2 (00:32→05:50)
[2018-05-12] MEDS: OCTREOTIDE ACETATE 100 MCG/ML VIAL SQ SCH ×3 (05:49→21:30)
[2018-05-12] MEDS: CARVEDILOL 3.125 MG TAB PO SCH ×2 (08:04→21:00)
[2018-05-12] MEDS: PANTOprazole SOD 40 MG TAB PO SCH ×2 (08:04→21:29)
[2018-05-12 08:05] LABS: HEMATOCRIT 31.3 % (42-52); HEMOGLOBIN 10.4 g/dL (14.0-18.0); MEAN CELL VOLUME 104.3 fL (80-100); MEAN CORPUSCULAR HEMOGLOBIN 34.7 pg (25-34); MEAN CORPUSCULAR HGB CONC 33.2 g/dl (32-36); RED CELL DISTRIBUTION WIDTH SD 68.6 fL (36.4-46.3); WHITE BLOOD COUNT 18.39 K/uL (4.8-10.8)
[2018-05-12] MEDS: FLUTICASONE/SALMETEROL (ADVAIR) 500/50 INH 14 PUFF INH SCH ×3 (08:05→21:29)
[2018-05-12] MEDS: METHYLPREDNISOLONE IV 80 MG in SYRINGE 0 ML IV SCH (08:05)
[2018-05-12] MEDS: AMIODARONE 200 MG TAB PO SCH (08:05)
[2018-05-12] MEDS: MIDODRINE 2.5 MG TAB PO SCH ×3 (08:05→16:55)
[2018-05-12 08:09] LABS: MEAN PLATELET VOLUME 10.9 fL (7.4-10.4); PLATELET COUNT 57 K/uL (130-400)
[2018-05-12 08:43] LABS: CREATININE 2.4 mg/dl (0.60-1.40); POTASSIUM 5.5 mmol/L (3.5-5.1)
[2018-05-12] MEDS ORDERED: FUROSEMIDE INJ 40 MG in SYRINGE 0 ML IV ONE (10:15)
--- NOTE | 2018-05-12 10:21 | Nephrology Progress Note ---
Nephrology Progress Note Date of Service May 12, 2018. Chief Complaint DOMINIQUE / CKD, HRS Subjective Mr. Crowley was seen & examined in his hospital room this morning. He complains of fatigue and notes that he is again developing abdominal distention and worsening LE edema. Review of Systems Constitutional: No fever Cardiovascular: No chest pain Respiratory: No dyspnea at rest Abdomen: + problem reported (abdominal distention), No pain, No nausea, No vomiting, No diarrhea Extremities: + leg edema A complete review of systems was performed. Pertinent positives are noted above. All other systems are negative. Vital Signs Last 8 Hrs Date Time Temp Pulse Resp B/P (MAP) Pulse Ox O2 Delivery O2 Flow Rate FiO2 05/12/18 08:00 Nasal Cannula 2.0 05/12/18 07:05 36.3 51 20 120/59 (79) 91 Nasal Cannula 05/12/18 06:50 36.3 50 20 116/60 (78) 91 Nasal Cannula 3.0 05/12/18 06:02 36.3 51 16 123/57 (79) 90 Nasal Cannula 3.0 Last Recorded Weight Weight (Kilograms): 103.700 Physical Exam General Appearance: + thin (frail, chronically ill appearing) Head: normocephalic, + pertinent finding (temporal muscle wasting) Eyes: PERRL, EOMI Neck: no adenopathy Respiratory/Chest: + wheezing Cardiovascular: regular rate, rhythm, no murmur Abdomen/GI: non tender (distended, hypoactive bowel sounds) Extremities/Musculoskelatal: + swelling (2+ pretibial pitting edema) Neurologic/Psych: alert, oriented x 3 Family History Cancer Heart disease Hypertension Negative for CKD / ESRD Social History Smoking Status: Current every day smoker Drug Use: none Marital Status: Housing Status: lives with significant other 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 H/o heavy alcohol use (last drink 03/22). Laboratory Results Past 24 Hours 05/12/18 07:49 05/12/18 07:49 Test 05/12/18 07:49 Red Blood Count 3.00 M/uL (4.7-6.1) Mean Corpuscular Volume 104.3 fL (80-100) Mean Corpuscular Hemoglobin 34.7 pg (25-34) Mean Corpuscular Hemoglobin Concent 33.2 g/dl (32-36) RDW Standard Deviation 68.6 fL (36.4-46.3) RDW Coefficient of Variation 18.0 % (11.5-14.5) Mean Platelet Volume 10.9 fL (7.4-10.4) Anion Gap 8.0 mmol/L (3-11) Est Creatinine Clear Calc Drug Dose 39.9 ml/min Estimated GFR () 31.8 Estimated GFR (Non- 27.5 BUN/Creatinine Ratio 45.5 (10-20) Calcium Level 8.0 mg/dl (8.5-10.1) Allergies Coded Allergies: No Known Allergies (Unverified , 05/06/18) Medications Current Inpatient Medications Medications (Trade) Dose Ordered Sig/Franklyn Route Start Time Stop Time Status Last Admin Dose Admin Ondansetron HCl (Zofran Inj) 4 mg Q6H PRN IV 05/05/18 00:15 06/04/18 00:14 Levofloxacin 750 mg/Prmx 150 ml @ 100 mls/hr Q48H IV 05/06/18 23:00 05/13/18 22:59 05/10/18 23:46 100 MLS/HR Methylprednisolone Sodium Succinate 80 mg/Syringe 1.28 ml @ 1.5 mls/min DAILY IV 05/05/18 09:00 06/04/18 08:59 05/12/18 08:05 1.5 MLS/MIN Carvedilol (Coreg Tab) 3.125 mg BID PO 05/05/18 01:00 06/04/18 00:59 05/10/18 08:44 3.125 MG Lactulose (Chronulac Syrup) 20 gm TID PRN PO 05/05/18 09:00 06/04/18 08:59 Ergocalciferol (Vitamin D Cap) 50,000 interunit Fr@0900 PO 05/07/18 09:00 06/06/18 08:59 05/07/18 10:57 50,000 INTERUNIT Pantoprazole Sodium (Protonix Tab) 40 mg BID PO 05/05/18 09:00 06/04/18 08:59 05/12/18 08:04 40 MG Levofloxacin (Consult) 1 ea UD PRN N/A 05/05/18 02:00 05/13/18 22:59 Salmeterol Xinafoate/ Fluticasone (Advair Diskus 500/50 Inh) 1 puff BID INH 05/05/18 09:00 06/04/18 08:59 05/12/18 08:05 1 PUFF Albuterol/ Ipratropium (Combivent Respimat Inh) 1 puffs QID PRN INH 05/05/18 02:30 06/04/18 02:29 05/10/18 08:45 1 PUFFS Amiodarone HCl (Cordarone Tab) 200 mg QAM PO 05/06/18 09:00 06/05/18 08:59 05/12/18 08:05 200 MG Midodrine (Proamatine Tab) 7.5 mg 0800,1200,1600 PO 05/08/18 16:00 06/04/18 07:59 05/12/18 08:05 7.5 MG Octreotide Acetate (Sandostatin Inj) 100 mcg Q8H SQ 05/08/18 14:00 06/07/18 13:59 05/12/18 05:49 100 MCG Albuterol Sulfate (Ventolin 0.083% 2.5MG/3ML Neb) 5 mg Q6R PRN INH 05/09/18 12:45 06/08/18 12:44 Hydromorphone HCl (Dilaudid Inj) 0.5 mg Q4H PRN IV 05/09/18 15:15 05/19/18 07:59 05/11/18 21:23 0.5 MG Furosemide 40 mg/ Syringe 4 ml @ 4 mls/min NOW ONCE IV 05/12/18 10:15 05/12/18 10:16 UNV Impression (1) Hepatorenal syndrome (2) DOMINIQUE (acute kidney injury) (3) Chronic kidney disease (4) Cirrhosis (5) Hyponatremia Recommendations Creatinine unchanged despite 1 L 0.9NS IV and 1 g / kg albumin infusion. Lack of improvement is suggestive of HRS. Will continue SPA 25 g IV daily until serum albumin is 3.0 or greater. Will continue Midodrine and Octreotide ( Octreotide started 05/08/18). Blood pressure and electrolyte balance remain acceptable at this time. Patient refused Devries catheter. He is now using a urinal to allow measurement of UO. He is oliguric. BUN continues to slowly trending upward. Azotemia is in part related to steroid therapy. Recommend tapering steroids if possible. Overall prognosis is guarded. Patient may not be a liver transplant candidate due to his cardiopulmonary disease. I have spoken to Mr. Crowley at length this am about FRAME [employer]ER. Indications/benefits/risks and alternatives discussed in detail. I have explained the dialysis is usually instituted in the setting of advanced liver disease to serve as a bridge to allow for transplantation. I have explained that initiation of HD in the setting of advanced liver disease may be complicated by low blood pressure, bleeding complications, difficulty obtaining and maintaining vascular access and potentially repeated hospitalization due to infection. It likely will not prolong his life or provide quality of life. We spoke briefly about conservative care and hospice. Mr. Crowley indicated that he wishes to discuss his plan of care further with his family.
[2018-05-12] MEDS: HYDROmorphone INJ 0.5 MG/0.5 ML SYR IV PRN ×2 (11:35→21:33)
--- NOTE | 2018-05-12 13:27 | Family Medicine Progress Note ---
Progress Note Date of Service May 12, 2018. Subjective Pt evaluation today including: conversation w/ patient, physical exam, chart review, lab review, review of inpatient medication list Pain: Some abdominal discomfort PO Intake: Decreased appetite but tolerating well Voiding: no voiding problems Patient reports he is "bummed out" today after his discussion with Dr. Bain about his poor prognosis. He states the discomfort in his abdomen is already starting to return. He reports lack of appetite and would like to rest and discuss future plans with his family before deciding on anything. Constitutional: No fever, No chills Respiratory: + cough, + sputum, + wheezing, + shortness of breath Cardiovascular: + edema, No chest pain Abdomen: + pain Musculoskeletal: + swelling Neurologic: + memory loss All Other Systems: Reviewed and Negative Medications Current Inpatient Medications Medications (Trade) Dose Ordered Sig/[place] Route Start Time Stop Time Status Last Admin Dose Admin Ondansetron HCl (Zofran Inj) 4 mg Q6H PRN IV 05/05/18 00:15 06/04/18 00:14 Levofloxacin 750 mg/Prmx 150 ml @ 100 mls/hr Q48H IV 05/06/18 23:00 05/13/18 22:59 05/10/18 23:46 100 MLS/HR Carvedilol (Coreg Tab) 3.125 mg BID PO 05/05/18 01:00 06/04/18 00:59 05/10/18 08:44 3.125 MG Lactulose (Chronulac Syrup) 20 gm TID PRN PO 05/05/18 09:00 06/04/18 08:59 Ergocalciferol (Vitamin D Cap) 50,000 interunit Fr@0900 PO 05/07/18 09:00 06/06/18 08:59 05/07/18 10:57 50,000 INTERUNIT Pantoprazole Sodium (Protonix Tab) 40 mg BID PO 05/05/18 09:00 06/04/18 08:59 05/12/18 08:04 40 MG Levofloxacin (Consult) 1 ea UD PRN N/A 05/05/18 02:00 05/13/18 22:59 Salmeterol Xinafoate/ Fluticasone (Advair Diskus 500/50 Inh) 1 puff BID INH 05/05/18 09:00 06/04/18 08:59 8/8/18 08:05 1 PUFF Albuterol/ Ipratropium (Combivent Respimat Inh) 1 puffs QID PRN INH 05/05/18 02:30 06/04/18 02:29 05/10/18 08:45 1 PUFFS Amiodarone HCl (Cordarone Tab) 200 mg QAM PO 05/06/18 09:00 06/05/18 08:59 05/12/18 08:05 200 MG Midodrine (Proamatine Tab) 7.5 mg 0800,1200,1600 PO 05/08/18 16:00 06/04/18 07:59 05/12/18 11:36 7.5 MG Octreotide Acetate (Sandostatin Inj) 100 mcg Q8H SQ 05/08/18 14:00 06/07/18 13:59 05/12/18 05:49 100 MCG Albuterol Sulfate (Ventolin 0.083% 2.5MG/3ML Neb) 5 mg Q6R PRN INH 05/09/18 12:45 06/08/18 12:44 Hydromorphone HCl (Dilaudid Inj) 0.5 mg Q4H PRN IV 05/09/18 15:15 05/19/18 07:59 05/12/18 11:35 0.5 MG Prednisone (PredniSONE TAB) 20 mg DAILY PO 05/13/18 09:00 06/12/18 08:59 Objective Vital Signs Date Time Temp Pulse Resp B/P (MAP) Pulse Ox O2 Delivery O2 Flow Rate FiO2 05/12/18 15:26 36.4 51 16 120/59 (79) 92 Room Air 05/12/18 11:33 52 124/65 (84) 05/12/18 08:00 Nasal Cannula 2.0 05/12/18 07:05 36.3 51 20 120/59 (79) 91 Nasal Cannula 05/12/18 06:50 36.3 50 20 116/60 (78) 91 Nasal Cannula 3.0 05/12/18 06:02 36.3 51 16 123/57 (79) 90 Nasal Cannula 3.0 05/12/18 01:40 36.3 49 18 116/61 (79) 91 Nasal Cannula 2.0 05/12/18 00:30 36.3 50 18 119/62 (81) 92 Nasal Cannula 2.0 05/12/18 00:00 Nasal Cannula 2.0 05/11/18 23:05 36.2 18 131/64 (86) 92 Nasal Cannula 3.0 05/11/18 19:32 52 20 112/51 (71) 93 Nasal Cannula 3.0 05/11/18 18:06 36.3 52 20 118/66 (83) 97 Nasal Cannula 3.0 Physical Exam General Appearance: WD/WN, no apparent distress Eyes: PERRL, EOMI, + abnormal sclerae exam (icterus) ENT: hearing grossly normal Neck: no carotid bruits, trachea midline Respiratory/Chest: no respiratory distress, no accessory muscle use, + decreased breath sounds, + wheezing Cardiovascular: regular rate, rhythm, no murmur Abdomen: normal bowel sounds, non tender, soft, + distended Extremities: + pedal edema Neurologic/Psychiatric: alert, oriented x 3, + depressed affect Skin: + jaundice Laboratory Results Last Resulted 05/12/18 07:49 Last Resulted 05/12/18 07:49 Assessment and Plan 63-year-old male admitted on 04 May 2018 for worsening fatigue and cough over the past few weeks. PMH: Decompensated cirrhosis, CHF, COPD, Atrial fibrillation, HLD, HTN, CKD stage 4, electrolyte issues (sodium and potassium), pneumonia, upper GI bleed Healthcare acquired pneumonia: - Admit chest x-ray concerning for atelectasis or pneumonitis. DCd empiric vancomycin, zosyn. - Currently on Levaquin - Sputum cultures noted heavy normal silvestre. Repeat chest x-ray on 08 May was suggestive of left base pneumonia or aspiration pneumonitis. - BCx NGTD. - Prior speech evaluations did not note evidence of aspiration risk (see related note). We will not pursue further workup at this time. COPD exacerbation: -Baseline 2 L nasal cannula at night only at home. Has been on 3-4.5L NC while in hospital -On his home Advair. -Tapering solumedrol 2/2 azotemia, started on prednisone 20 -Patient has declined DuoNeb's, preferring as needed Combivent. Some acute episodes of shortness of breath as inpatient, responding well to albuterol nebs. -Overall, working to wean off oxygen requirement. 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 Proctor at [facility]. GI onboard here, see related notes. Patient's meld score is 26. [facility] is pending six months of sobriety (September ) before initiating liver transplant workup. - Discussion here of MRCP for evaluation of elevated alk phos but patient is claustrophobic. Liver enzymes have varied between improvement and worsening. Continue discussions on timing of EUS. - S/p paracentesis on 06 May, removing 6 L of fluid and 05/11/18, removing 5L of fluid Related ascites fluid culture NGTD. DOMINIQUE with history of stage IV CKD: - Admit Cr 2.6, presently 2.48 - Prior Cr roughly in the mid 1's (January 2018). UA on admit not suggestive of UTI. FeNa suggests prerenal source, but also concerns with rehydration and hepatorenal syndrome. - Nephrology consulted, see related notes. - Recommended decreased albumin and DC IVF as well as ongoing midodrine and octreotide. Mild confusion and elevated ammonia level: -Likely hepatic encephalopathy. Lactulose was initially ordered as TID prn ( with no doses to date). -Remains A&O w/o confusion in past 48 hrs. Ammonia levels trended down to nl. Thrombocytopenia: Platelets down to 57. No evidence of acute bleeding. Monitoring. Hyperkalemia: Admit K 5.6. EKG was NSR with first-degree AV block. K 5.5 today. Monitoring. Possible moderate malnutrition: Recommend low-fat, low-salt diet. Nutrition consulted. - Esophageal varices and PUD: Is on Coreg. INR has remained stable around 1.6 - 1.7. Is off anticoagulation due to risk of recurrent GI bleed. - Portal hypertension: On Coreg. - CHF: No evidence of the same on chest imaging. Monitoring. - Paroxysmal A. fib: On Coreg and amiodarone. - Hyperlipidemia: Not on statin due to liver disease. Code status: DO NOT RESUSCITATE Diet: Low-fat, low-sodium diet. DVT prophy: Holding chemical anticoagulation due to recent GI bleed and holding SCD's due to lower extremity edema. PT/OT: Ongoing. Dispo: Admitted to Tele. Lives with at home Resident Physician Supervision Note: I interviewed and examined the patient. Discussed with Dr. Schneekloth and agree with findings and plan as documented in the note. Any exceptions or clarifications are listed here: None Documented By: Sanford Rodrigues breathing feels good, emotionally feeling down after discussions with nephro. vitals noted nad breathing unlabored no pallor or icterus HCAP - improving - finish course of levaquin, wean O2, may need at home - 2 step tomorrow. cirrhosis w ascites, severe liver disease - currently wants to see how he does sober, with hopes that his function may stabilize or improve some. not ready for a fully palliative approach- seems reasonable. understands overall grim prognosis, but emotionally not ready to move fully to hospice/comfort otherwise as above Resident Tracking Resident Involvement: Resident Care Provided Care Provided: Adult [facility]
--- NOTE | 2018-05-12 16:49 | PROGRESS NOTE ---
DATE: 05/12/2018 SUBJECTIVE: The patient appears a little bit more alert today. He is actually walking in the room. Vital signs are stable. He is not complaining of any abdominal pain, nausea or vomiting. Laboratory shows that his creatinine is dropping ever so slightly but BUN is stable or slightly elevated despite the albumin infusions. IMPRESSION: The patient has end-stage kidney disease with hepatorenal syndrome. His discussion with Dr. Bain today indicates that he is probably not a candidate for renal transplant or dialysis or liver transplant for that matter. I agree with this assessment and that his prognosis is guarded. I do agree that switching him from IV methylprednisolone to oral prednisone is a good step to try to transition him to home care. Will continue to follow the patient.
[2018-05-12] MEDS: LEVOFLOXACIN / D5W 750 MG in PREMIXED IN D5W 150 ML IV SCH (21:36)
[2018-05-13] MEDS: OCTREOTIDE ACETATE 100 MCG/ML VIAL SQ SCH ×3 (05:27→20:28)
[2018-05-13] MEDS: HYDROmorphone INJ 0.5 MG/0.5 ML SYR IV PRN ×2 (05:37→21:45)
[2018-05-13 07:37] VITALS: BP 142/65; PULSE 62; TEMP 36.3; O2SAT 94
[2018-05-13 07:56] LABS: HEMATOCRIT 32.8 % (42-52); MEAN CELL VOLUME 103.1 fL (80-100); MEAN CORPUSCULAR HEMOGLOBIN 34.6 pg (25-34); MEAN CORPUSCULAR HGB CONC 33.5 g/dl (32-36); RED CELL DISTRIBUTION WIDTH CV 18.2 % (11.5-14.5); RED CELL DISTRIBUTION WIDTH SD 68.3 fL (36.4-46.3); WHITE BLOOD COUNT 23.97 K/uL (4.8-10.8)
[2018-05-13] MEDS: MIDODRINE 2.5 MG TAB PO SCH ×3 (07:56→15:58)
[2018-05-13] MEDS: AMIODARONE 200 MG TAB PO SCH (07:56)
[2018-05-13] MEDS: CARVEDILOL 3.125 MG TAB PO SCH ×2 (07:56→20:27)
[2018-05-13] MEDS: PANTOprazole SOD 40 MG TAB PO SCH ×2 (07:56→20:28)
[2018-05-13] MEDS: FLUTICASONE/SALMETEROL (ADVAIR) 500/50 INH 14 PUFF INH SCH ×2 (07:56→20:26)
[2018-05-13 07:59] LABS: MEAN PLATELET VOLUME 10.4 fL (7.4-10.4); PLATELET COUNT 66 K/uL (130-400)
[2018-05-13 08:29] LABS: ALBUMIN 3.3 gm/dl (3.4-5.0); CALCIUM 8.5 mg/dl (8.5-10.1); CREATININE 2.28 mg/dl (0.60-1.40); POTASSIUM 5.5 mmol/L (3.5-5.1); TOTAL PROTEIN 5.5 gm/dl (6.4-8.2)
[2018-05-13] MEDS ORDERED: RANITIDINE HCL 150 MG TAB PO PRN ×2 (09:45→10:30)
--- NOTE | 2018-05-13 09:53 | Nephrology Progress Note ---
Nephrology Progress Note Date of Service May 13, 2018. Chief Complaint DOMINIQUE / CKD, HRS Subjective Mr. Crowley was seen & examined in his hospital room this morning. He reports brisk UO and denies nausea or uremic symptoms. His primary concern today is fatigue. Review of Systems Constitutional: No fever Cardiovascular: No chest pain Respiratory: + dyspnea on exertion, No dyspnea at rest Abdomen: No pain, No vomiting, No hematochezia, No diarrhea, No melena Extremities: + leg edema A complete review of systems was performed. Pertinent positives are noted above. All other systems are negative. Vital Signs Last 8 Hrs Date Time Temp Pulse Resp B/P (MAP) Pulse Ox O2 Delivery O2 Flow Rate FiO2 05/13/18 08:00 Nasal Cannula 3.0 05/13/18 07:37 36.3 62 18 142/65 (90) 94 Nasal Cannula 2.5 Last Recorded Weight Weight (Kilograms): 103.700 Physical Exam General Appearance: no apparent distress Head: atraumatic (temporal muscle wasting) Eyes: PERRL, EOMI Neck: + JVD Respiratory/Chest: + rales Cardiovascular: regular rate, rhythm Abdomen/GI: non tender (hypoactive bowel sounds), soft, + distended Extremities/Musculoskelatal: + swelling (2+ pretibial pitting edema) Neurologic/Psych: alert, oriented x 3 Family History Cancer Heart disease Hypertension Negative for CKD / ESRD Social History Smoking Status: Current every day smoker Drug Use: none Marital Status: Housing Status: lives with significant other 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 H/o heavy alcohol use (last drink 03/22). Laboratory Results Past 24 Hours 05/13/18 07:46 05/13/18 07:46 Test 05/13/18 07:46 Red Blood Count 3.18 M/uL (4.7-6.1) Mean Corpuscular Volume 103.1 fL (80-100) Mean Corpuscular Hemoglobin 34.6 pg (25-34) Mean Corpuscular Hemoglobin Concent 33.5 g/dl (32-36) RDW Standard Deviation 68.3 fL (36.4-46.3) RDW Coefficient of Variation 18.2 % (11.5-14.5) Mean Platelet Volume 10.4 fL (7.4-10.4) Anion Gap 9.0 mmol/L (3-11) Est Creatinine Clear Calc Drug Dose 42.0 ml/min Estimated GFR () 33.9 Estimated GFR (Non- 29.2 BUN/Creatinine Ratio 52.7 (10-20) Calcium Level 8.5 mg/dl (8.5-10.1) Total Bilirubin 3.5 mg/dl (0.2-1) Aspartate Amino Transf (AST/SGOT) 40 U/L (15-37) Alanine Aminotransferase (ALT/SGPT) 48 U/L (12-78) Alkaline Phosphatase 126 U/L (45-117) Total Protein 5.5 gm/dl (6.4-8.2) Albumin 3.3 gm/dl (3.4-5.0) Globulin 2.2 gm/dl (2.5-4.0) Albumin/Globulin Ratio 1.5 (0.9-2) Allergies Coded Allergies: No Known Allergies (Unverified , 05/06/18) Medications Current Inpatient Medications Medications (Trade) Dose Ordered Sig/Franklyn Route Start Time Stop Time Status Last Admin Dose Admin Ondansetron HCl (Zofran Inj) 4 mg Q6H PRN IV 05/05/18 00:15 06/04/18 00:14 Levofloxacin 750 mg/Prmx 150 ml @ 100 mls/hr Q48H IV 05/06/18 23:00 05/13/18 22:59 05/12/18 21:36 100 MLS/HR Carvedilol (Coreg Tab) 3.125 mg BID PO 05/05/18 01:00 06/04/18 00:59 05/13/18 07:56 3.125 MG Lactulose (Chronulac Syrup) 20 gm TID PRN PO 05/05/18 09:00 06/04/18 08:59 Ergocalciferol (Vitamin D Cap) 50,000 interunit Fr@0900 PO 05/07/18 09:00 06/06/18 08:59 05/07/18 10:57 50,000 INTERUNIT Pantoprazole Sodium (Protonix Tab) 40 mg BID PO 05/05/18 09:00 06/04/18 08:59 05/13/18 07:56 40 MG Levofloxacin (Consult) 1 ea UD PRN N/A 05/05/18 02:00 05/13/18 22:59 Salmeterol Xinafoate/ Fluticasone (Advair Diskus 500/50 Inh) 1 puff BID INH 05/05/18 09:00 06/04/18 08:59 05/13/18 07:56 1 PUFF Albuterol/ Ipratropium (Combivent Respimat Inh) 1 puffs QID PRN INH 05/05/18 02:30 06/04/18 02:29 05/10/18 08:45 1 PUFFS Amiodarone HCl (Cordarone Tab) 200 mg QAM PO 05/06/18 09:00 06/05/18 08:59 05/13/18 07:56 200 MG Midodrine (Proamatine Tab) 7.5 mg 0800,1200,1600 PO 05/08/18 16:00 06/04/18 07:59 05/13/18 07:56 7.5 MG Octreotide Acetate (Sandostatin Inj) 100 mcg Q8H SQ 05/08/18 14:00 06/07/18 13:59 05/13/18 05:27 100 MCG Albuterol Sulfate (Ventolin 0.083% 2.5MG/3ML Neb) 5 mg Q6R PRN INH 05/09/18 12:45 06/08/18 12:44 Hydromorphone HCl (Dilaudid Inj) 0.5 mg Q4H PRN IV 05/09/18 15:15 05/19/18 07:59 05/13/18 05:37 0.5 MG Prednisone (PredniSONE TAB) 20 mg DAILY PO 05/13/18 09:00 06/12/18 08:59 05/13/18 07:56 20 MG Impression (1) Hepatorenal syndrome (2) DOMINIQUE (acute kidney injury) (3) Chronic kidney disease (4) Cirrhosis (5) Hyponatremia Recommendations Kidney function is mildly improved this am. Creatinine has dropped from 2.6 to 2.3. Patient is nonoliguric. He diuresed 1 L overnight in response to IV Furosemide. Patient has progressive azotemia likely related to steroid therapy. He has no nausea, pericardial friction rub or other symptom to suggest uremia. Low potassium diet has been ordered. Will provide additional 40 mg Furosemide IV x 1 today and monitor UO, electrolytes and kidney function. Continue SPA 25 g IV daily, Midodrine and Octreotide (Octreotide started 05/08). Prognosis remains guarded. No acute indication for HD at this time. Indications/benefits/risks/alternatives to [employer] discussed in detail w/ patient yesterday. He has not reached a decision but is encouraged that creatinine is mildly improved this am.
[2018-05-13] MEDS ORDERED: FUROSEMIDE INJ 40 MG in SYRINGE 0 ML IV ONE (10:15)
--- NOTE | 2018-05-13 11:30 | Family Medicine Progress Note ---
Progress Note Date of Service May 13, 2018. Subjective Pt evaluation today including: conversation w/ patient, physical exam, chart review, review of inpatient medication list Pain: Abdominal and lower extremity discomfort PO Intake: Decreased appetite Voiding: no voiding problems (feels some urgency and gets concerned with weakness and making to toilet on time) Patient feeling about the same. Is tired. Does not feel strong enough to go home at this time. Continues to report sensation of mucous stuck in throat. Constitutional: No fever, No chills Respiratory: + shortness of breath, No cough, No sputum, No dyspnea at rest Cardiovascular: + edema, No chest pain Abdomen: + pain, + problem reported (heartburn) Musculoskeletal: + joint pain, + muscle pain Neurologic: + numbness/tingling Psychiatric: + depression symptoms, + anhedonism Heme: + abnormal bleeding/bruising All Other Systems: Reviewed and Negative Medications Current Inpatient Medications Medications (Trade) Dose Ordered Sig/Franklyn Route Start Time Stop Time Status Last Admin Dose Admin Ondansetron HCl (Zofran Inj) 4 mg Q6H PRN IV 05/05/18 00:15 06/04/18 00:14 Levofloxacin 750 mg/Prmx 150 ml @ 100 mls/hr Q48H IV 05/06/18 23:00 05/13/18 22:59 05/12/18 21:36 100 MLS/HR Carvedilol (Coreg Tab) 3.125 mg BID PO 05/05/18 01:00 06/04/18 00:59 05/13/18 07:56 3.125 MG Lactulose (Chronulac Syrup) 20 gm TID PRN PO 05/05/18 09:00 06/04/18 08:59 Ergocalciferol (Vitamin D Cap) 50,000 interunit Fr@0900 PO 05/07/18 09:00 06/06/18 08:59 05/07/18 10:57 50,000 INTERUNIT Pantoprazole Sodium (Protonix Tab) 40 mg BID PO 05/05/18 09:00 06/04/18 08:59 05/13/18 07:56 40 MG Levofloxacin (Consult) 1 ea UD PRN N/A 05/05/18 02:00 05/13/18 22:59 Salmeterol Xinafoate/ Fluticasone (Advair Diskus 500/50 Inh) 1 puff BID INH 05/05/18 09:00 06/04/18 08:59 05/13/18 07:56 1 PUFF Albuterol/ Ipratropium (Combivent Respimat Inh) 1 puffs QID PRN INH 05/05/18 02:30 06/04/18 02:29 05/10/18 08:45 1 PUFFS Amiodarone HCl (Cordarone Tab) 200 mg QAM PO 05/06/18 09:00 06/05/18 08:59 05/13/18 07:56 200 MG Midodrine (Proamatine Tab) 7.5 mg 0800,1200,1600 PO 05/08/18 16:00 06/04/18 07:59 05/13/18 07:56 7.5 MG Octreotide Acetate (Sandostatin Inj) 100 mcg Q8H SQ 05/08/18 14:00 06/07/18 13:59 05/13/18 05:27 100 MCG Albuterol Sulfate (Ventolin 0.083% 2.5MG/3ML Neb) 5 mg Q6R PRN INH 05/09/18 12:45 06/08/18 12:44 Hydromorphone HCl (Dilaudid Inj) 0.5 mg Q4H PRN IV 05/09/18 15:15 05/19/18 07:59 05/13/18 05:37 0.5 MG Prednisone (PredniSONE TAB) 20 mg DAILY PO 05/13/18 09:00 06/12/18 08:59 05/13/18 07:56 20 MG Guaifenesin (Mucinex Contr Rel Tab) 600 mg Q12 PO 05/13/18 21:00 06/12/18 20:59 Ranitidine HCl (zANTac TAB) 150 mg Q24H PRN PO 05/13/18 10:30 06/12/18 10:29 Objective Vital Signs Date Time Temp Pulse Resp B/P (MAP) Pulse Ox O2 Delivery O2 Flow Rate FiO2 05/13/18 08:00 Nasal Cannula 3.0 05/13/18 07:37 36.3 62 18 142/65 (90) 94 Nasal Cannula 2.5 05/13/18 01:00 Nasal Cannula 3.0 8/8/18 22:06 36.3 53 18 120/58 (78) 95 Nasal Cannula 3.0 05/12/18 16:00 92 Room Air 3.0 05/12/18 15:26 36.4 51 16 120/59 (79) 92 Room Air 05/12/18 11:33 52 124/65 (84) Physical Exam General Appearance: WD/WN, no apparent distress Eyes: PERRL, + abnormal sclerae exam (icterus) ENT: hearing grossly normal Neck: no carotid bruits, trachea midline Respiratory/Chest: lungs clear, normal breath sounds, no respiratory distress, no accessory muscle use Cardiovascular: no murmur, + bradycardia Abdomen: normal bowel sounds, non tender, soft, + distended Extremities: + pedal edema (2+ bl) Neurologic/Psychiatric: alert, oriented x 3, + depressed affect Skin: + jaundice Laboratory Results Last Resulted 05/13/18 07:46 Last Resulted 05/13/18 07:46 Assessment and Plan 63-year-old male admitted on 04 May 2018 for worsening fatigue and cough over the past few weeks. PMH: Decompensated cirrhosis, CHF, COPD, Atrial fibrillation, HLD, HTN, CKD stage 4, electrolyte issues (sodium and potassium), pneumonia, upper GI bleed Healthcare acquired pneumonia: - Admit chest x-ray concerning for atelectasis or pneumonitis. DCd empiric vancomycin, zosyn. - DCd Levaquin - Sputum cultures noted heavy normal silvestre. Repeat chest x-ray on 08 May was suggestive of left base pneumonia or aspiration pneumonitis. - BCx NGTD. - Prior speech evaluations did not note evidence of aspiration risk (see related note). We will not pursue further workup at this time. - WBC climbing in past few days; will order CRP to trend. COPD exacerbation: -Baseline 2 L nasal cannula at night only at home. Has been on 3-4.5L NC while in hospital. Will 2-step prior to discharge -On his home Advair. -Tapering solumedrol 2/2 azotemia, started on prednisone 20 -Patient has declined DuoNeb's, preferring as needed Combivent. Some acute episodes of shortness of breath as inpatient, responding well to albuterol nebs. -Overall, working to wean off oxygen requirement. 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 Proctor at [place]. GI onboard here, see related notes. Patient's meld score is 26. [facility] is pending six months of sobriety (September ) before initiating liver transplant workup. - Discussion here of MRCP for evaluation of elevated alk phos but patient is claustrophobic. Liver enzymes have varied between improvement and worsening. Continue discussions on timing of EUS. - S/p paracentesis on 06 May, removing 6 L of fluid and 05/11/18, removing 5L of fluid Related ascites fluid culture NGTD. - Continuing albumin per nephrology/GI recommendations DOMINIQUE with history of stage IV CKD: - Admit Cr 2.6, presently 2.28 - Prior Cr roughly in the mid 1's (January 2018). UA on admit not suggestive of UTI. FeNa suggests prerenal source, but also concerns with rehydration and hepatorenal syndrome. - Nephrology consulted, see related notes. - Recommended decreased albumin and DC IVF as well as ongoing midodrine and octreotide. Mild confusion and elevated ammonia level: -Likely hepatic encephalopathy. Lactulose was initially ordered as TID prn ( with no doses to date). -Remains A&O w/o confusion in past 48 hrs. Ammonia levels trended down to nl. Thrombocytopenia: Platelets down to 66. No evidence of acute bleeding. Monitoring. Hyperkalemia: Admit K 5.6. EKG was NSR with first-degree AV block. K 5.5 today. Monitoring. Possible moderate malnutrition: Recommend low-fat, low-salt diet. Nutrition consulted. - Esophageal varices and PUD: Is on Coreg. INR has remained stable around 1.6 - 1.7. Is off anticoagulation due to risk of recurrent GI bleed. - Portal hypertension: On Coreg. - CHF: No evidence of the same on chest imaging. Monitoring. - Paroxysmal A. fib: On Coreg and amiodarone. - Hyperlipidemia: Not on statin due to liver disease. Code status: DO NOT RESUSCITATE Diet: Low-fat, low-sodium diet. DVT prophy: Holding chemical anticoagulation due to recent GI bleed and holding SCD's due to lower extremity edema. PT/OT: Ongoing. Dispo: Admitted to Tele. Lives with at home Resident Physician Supervision Note: I interviewed and examined the patient. Discussed with Dr. Carreno and agree with findings and plan as documented in the note. Any exceptions or clarifications are listed here: None Documented By: Sanford Rodrigues mucous, making breathing feel worse vitals noted nad breathing unlabored no r/r/w good effort no pallor or icterus HCAP - improving - finish course of levaquin, wean O2, may need at home, add mucolytics, continue supportive care cirrhosis w ascites, severe liver disease - currently wants to see how he does sober, with hopes that his function may stabilize or improve some. not ready for a fully palliative approach- seems reasonable. understands overall grim prognosis, but emotionally not ready to move fully to hospice/comfort otherwise as above Resident Tracking Resident Involvement: Resident Care Provided Care Provided: Adult Hospital Medicine
[2018-05-13] MEDS: ONDANSETRON INJ 2 MG/ML 2 ML VIAL IV PRN (14:00)
[2018-05-13 14:49] VITALS: BP 109/56; PULSE 52; TEMP 36.2; O2SAT 94
--- NOTE | 2018-05-13 17:44 | PROGRESS NOTE ---
DATE: 05/13/2018 The patient reports no abdominal pain and a little bit increased energy today. Objectively his creatinine is slowly improving; today it is 2.28. BUN is increasing however, up to 120. Liver profile is stable. He has been switched from IV methylprednisolone to oral prednisone yesterday. At this point, the patient will be looking at placement either home or in some facility depending on his situation and his health status. We will continue to follow the patient as needed.
[2018-05-13 20:28] VITALS: BP 133/62; PULSE 58
[2018-05-13] MEDS: GUAIFENESIN 600 MG TABCR PO SCH (20:28)
[2018-05-13 23:29] VITALS: BP 127/63; PULSE 51; TEMP 36.3; O2SAT 94
[2018-05-14] MEDS: OCTREOTIDE ACETATE 100 MCG/ML VIAL SQ SCH ×3 (06:00→21:33)
[2018-05-14 07:32] LABS: HEMATOCRIT 32.4 % (42-52); HEMOGLOBIN 10.7 g/dL (14.0-18.0); MEAN CELL VOLUME 104.5 fL (80-100); MEAN CORPUSCULAR HEMOGLOBIN 34.5 pg (25-34); RED CELL DISTRIBUTION WIDTH CV 18.4 % (11.5-14.5); RED CELL DISTRIBUTION WIDTH SD 69.3 fL (36.4-46.3); WHITE BLOOD COUNT 21.74 K/uL (4.8-10.8)
[2018-05-14 07:33] VITALS: BP 112/61; PULSE 51; TEMP 36.3; O2SAT 91
[2018-05-14 07:33] LABS: PLATELET COUNT 52 K/uL (130-400)
[2018-05-14 07:55] VITALS: PULSE 62
[2018-05-14] MEDS: ERGOCALCIFEROL 50,000 INTER.UNIT CAP PO SCH (07:55)
[2018-05-14] MEDS: FLUTICASONE/SALMETEROL (ADVAIR) 500/50 INH 14 PUFF INH SCH ×2 (07:55→21:31)
[2018-05-14] MEDS: CARVEDILOL 3.125 MG TAB PO SCH ×2 (07:55→21:00)
[2018-05-14] MEDS: GUAIFENESIN 600 MG TABCR PO SCH ×2 (07:55→21:32)
[2018-05-14] MEDS: AMIODARONE 200 MG TAB PO SCH (07:55)
[2018-05-14] MEDS: MIDODRINE 2.5 MG TAB PO SCH ×3 (07:55→16:25)
[2018-05-14] MEDS: PANTOprazole SOD 40 MG TAB PO SCH ×2 (07:55→21:32)
[2018-05-14 08:00] LABS: CALCIUM 8.1 mg/dl (8.5-10.1); CREATININE 2.04 mg/dl (0.60-1.40); POTASSIUM 5.3 mmol/L (3.5-5.1)
--- NOTE | 2018-05-14 09:25 | Nephrology Progress Note ---
Nephrology Progress Note Date of Service May 14, 2018. Chief Complaint DOMINIQUE / CKD, HRS Subjective Mr. Crowley was seen and examined in his hospital room this morning. He reports drinking orange juice each morning. His potassium is elevated but he has had brisk UO in response to IV Furosemide. Mr. Crowley notes that his abdominal ascites is relatively stable. He has not been accumulating fluid as quickly as he had in the past. Review of Systems Constitutional: No fever Cardiovascular: No chest pain Respiratory: No dyspnea at rest Abdomen: No pain, No vomiting, No diarrhea Extremities: + leg edema A complete review of systems was performed. Pertinent positives are noted above. All other systems are negative. Vital Signs Last 8 Hrs Date Time Temp Pulse Resp B/P (MAP) Pulse Ox O2 Delivery O2 Flow Rate FiO2 05/14/18 08:00 Nasal Cannula 3.0 05/14/18 07:55 62 05/14/18 07:33 36.3 51 16 112/61 (78) 91 Nasal Cannula 3.0 Last Recorded Weight Weight (Kilograms): 97.100 Physical Exam General Appearance: no apparent distress Head: atraumatic (temporal muscle wasting) Eyes: PERRL, EOMI Neck: no adenopathy Respiratory/Chest: lungs clear, no respiratory distress Cardiovascular: regular rate, rhythm Abdomen/GI: non tender (hypoactive bowel sounds), + distended Extremities/Musculoskelatal: + swelling (2+ pretibial pitting edema w/ hemosiderin staining) Neurologic/Psych: alert, oriented x 3 Family History Cancer Heart disease Hypertension Negative for CKD / ESRD Social History Smoking Status: Current every day smoker Drug Use: none Marital Status: Housing Status: lives with significant other 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 H/o heavy alcohol use (last drink 03/22). Laboratory Results Past 24 Hours 05/14/18 06:47 05/14/18 06:47 Test 05/14/18 06:47 Red Blood Count 3.10 M/uL (4.7-6.1) Mean Corpuscular Volume 104.5 fL (80-100) Mean Corpuscular Hemoglobin 34.5 pg (25-34) Mean Corpuscular Hemoglobin Concent 33.0 g/dl (32-36) RDW Standard Deviation 69.3 fL (36.4-46.3) RDW Coefficient of Variation 18.4 % (11.5-14.5) Mean Platelet Volume 11.0 fL (7.4-10.4) Anion Gap 8.0 mmol/L (3-11) Est Creatinine Clear Calc Drug Dose 42.5 ml/min Estimated GFR () 38.8 Estimated GFR (Non- 33.4 BUN/Creatinine Ratio 61.7 (10-20) Calcium Level 8.1 mg/dl (8.5-10.1) C-Reactive Protein 0.93 mg/dl (0-0.29) Allergies Coded Allergies: No Known Allergies (Unverified , 05/06/18) Medications Current Inpatient Medications Medications (Trade) Dose Ordered Sig/Franklyn Route Start Time Stop Time Status Last Admin Dose Admin Ondansetron HCl (Zofran Inj) 4 mg Q6H PRN IV 05/05/18 00:15 06/04/18 00:14 05/13/18 14:00 4 MG Carvedilol (Coreg Tab) 3.125 mg BID PO 05/05/18 01:00 06/04/18 00:59 05/14/18 07:55 3.125 MG Lactulose (Chronulac Syrup) 20 gm TID PRN PO 05/05/18 09:00 06/04/18 08:59 Ergocalciferol (Vitamin D Cap) 50,000 interunit Fr@0900 PO 05/07/18 09:00 06/06/18 08:59 05/14/18 07:55 50,000 INTERUNIT Pantoprazole Sodium (Protonix Tab) 40 mg BID PO 05/05/18 09:00 06/04/18 08:59 05/14/18 07:55 40 MG Salmeterol Xinafoate/ Fluticasone (Advair Diskus 500/50 Inh) 1 puff BID INH 05/05/18 09:00 06/04/18 08:59 05/14/18 07:55 1 PUFF Albuterol/ Ipratropium (Combivent Respimat Inh) 1 puffs QID PRN INH 05/05/18 02:30 06/04/18 02:29 05/10/18 08:45 1 PUFFS Amiodarone HCl (Cordarone Tab) 200 mg QAM PO 05/06/18 09:00 06/05/18 08:59 05/14/18 07:55 200 MG Midodrine (Proamatine Tab) 7.5 mg 0800,1200,1600 PO 05/08/18 16:00 06/04/18 07:59 05/14/18 07:55 7.5 MG Octreotide Acetate (Sandostatin Inj) 100 mcg Q8H SQ 05/08/18 14:00 06/07/18 13:59 05/13/18 05:27 100 MCG Albuterol Sulfate (Ventolin 0.083% 2.5MG/3ML Neb) 5 mg Q6R PRN INH 05/09/18 12:45 06/08/18 12:44 Hydromorphone HCl (Dilaudid Inj) 0.5 mg Q4H PRN IV 05/09/18 15:15 05/19/18 07:59 05/13/18 21:45 0.5 MG Prednisone (PredniSONE TAB) 20 mg DAILY PO 05/13/18 09:00 06/12/18 08:59 05/14/18 07:55 20 MG Guaifenesin (Mucinex Contr Rel Tab) 600 mg Q12 PO 05/13/18 21:00 06/12/18 20:59 05/14/18 07:55 600 MG Ranitidine HCl (zANTac TAB) 150 mg Q24H PRN PO 05/13/18 10:30 06/12/18 10:29 Impression (1) Hepatorenal syndrome (2) DOMINIQUE (acute kidney injury) (3) Chronic kidney disease (4) Cirrhosis (5) Hyponatremia Recommendations Patient appears to be in recovery phase. Creatinine has dropped from 2.6 to 2.0. Patient is nonoliguric. He diuresed 1350 cc overnight in response to IV Furosemide. Patient has progressive azotemia likely related to steroid therapy. He has no nausea, pericardial friction rub or other symptom to suggest uremia. Low potassium diet has been ordered. Will provide additional 40 mg Furosemide IV x 1 today and monitor UO, electrolytes and kidney function. Albumin infusions were discontinued 05/12/18. Will continue Midodrine and Octreotide (Octreotide started 05/08/18). SBP has been acceptable at 100 - 130 mm HG. No acute indication for HD at this time. Prognosis remains guarded. Patient requires continued hospitalization until azotemia is clearly improving. He will also benefit from education on low sodium diet and alcohol abstinence prior to discharge.
[2018-05-14] MEDS ORDERED: FUROSEMIDE INJ 40 MG in SYRINGE 0 ML IV ONE (09:30)
--- NOTE | 2018-05-14 11:55 | Palliative Care Progress Note ---
Palliative Care Progress Note Date of Service May 14, 2018. Subjective Pt evaluation today including: conversation w/ patient, conversation w/ family , physical exam, chart review, conversation w/ successfactors consultant (Dr. Rodrigues, Dr. Carreno) Disucssed goals of care with patient and his , Keira Mejia, separately today. Both agree that they would like patient to go home with hospice. Review of Systems Constitutional: + weakness, + fatigue ENT: No trouble swallowing Respiratory: + shortness of breath (when abdomen is full/distended) Cardiac: + edema, No chest pain Abdomen: + problem reported (distention), No pain, No nausea, No vomiting Male : No problem reported Psychiatric: + problem reported (feeling down about situation), No anxiety Objective Vital Signs Date Time Temp Pulse Resp B/P (MAP) Pulse Ox O2 Delivery O2 Flow Rate FiO2 05/14/18 08:00 Nasal Cannula 3.0 05/14/18 07:55 62 05/14/18 07:33 36.3 51 16 112/61 (78) 91 Nasal Cannula 3.0 05/14/18 00:25 Nasal Cannula 3.0 05/13/18 23:29 36.3 51 16 127/63 (84) 94 05/13/18 20:28 58 133/62 (85) 05/13/18 16:00 Nasal Cannula 3.0 05/13/18 14:49 36.2 52 18 109/56 (73) 94 Nasal Cannula 2.5 Physical Exam General Appearance: no apparent distress, + pertinent finding (chronically ill appearing) ENT: hearing grossly normal Neck: supple, no JVD Respiratory/Chest: no respiratory distress, no accessory muscle use, + decreased breath sounds, + wheezing (faint expiratory) Cardiovascular: regular rate, rhythm, + pertinent finding (pitting edema to bilateral lower extremities) Abdomen: normal bowel sounds, soft, + distended Neurologic/Psychiatric: alert, oriented x 3, + depressed affect Skin: normal color Laboratory Results Last 24 Hours Test 05/14/18 06:47 White Blood Count 21.74 K/uL Red Blood Count 3.10 M/uL Hemoglobin 10.7 g/dL Hematocrit 32.4 % Mean Corpuscular Volume 104.5 fL Mean Corpuscular Hemoglobin 34.5 pg Mean Corpuscular Hemoglobin Concent 33.0 g/dl RDW Standard Deviation 69.3 fL RDW Coefficient of Variation 18.4 % Platelet Count 52 K/uL Mean Platelet Volume 11.0 fL Sodium Level 139 mmol/L Potassium Level 5.3 mmol/L Chloride Level 104 mmol/L Carbon Dioxide Level 27 mmol/L Anion Gap 8.0 mmol/L Blood Urea Nitrogen 126 mg/dl Creatinine 2.04 mg/dl Est Creatinine Clear Calc Drug Dose 42.5 ml/min Estimated GFR () 38.8 Estimated GFR (Non- 33.4 BUN/Creatinine Ratio 61.7 Random Glucose 98 mg/dl Calcium Level 8.1 mg/dl C-Reactive Protein 0.93 mg/dl Assessment and Plan Problem list: Weakness Pneumonia Cirrhosis with ascites Goals of care Palliative care recs: -After discussion with patient and , plan is for home with hospice. -Should utilize hospice agency who will allow for palliative paracenteses. Ascites not reaccumulating fast enough to where a abdominal pleur-x is warranted , especially with risk of complication of these catheters. -data warehousing manager is setting up hospice with [facility]. -POLST form would be helpful, but I was unable to connect in person with patient 's today and patient prefers her to do this. Total time spent 35 minutes with >50% of time spent at bedside with patient and on phone with discussing goals of care. Palliative Performance Scale: 50 % Discharge planning: home with Hospice
[2018-05-14] MEDS ORDERED: CALCIUM CARBONATE 500 MG CHEWABLE PO PRN (12:45)
[2018-05-14] MEDS ORDERED: CALCIUM CARBONATE 500 MG CHEWABLE PO ONE (13:30)
--- NOTE | 2018-05-14 14:41 | Family Medicine Progress Note ---
Progress Note Date of Service May 14, 2018. Subjective Pt evaluation today including: conversation w/ patient, physical exam, chart review, lab review, conversation w/ outside sales consultant, review of inpatient medication list Pain: Denies pain PO Intake: Decreased appetite, but tolerating well Voiding: voiding difficulty (Urgency) Patient in low spirits today. Reports his breathing is a little better. Upset because he wants to go home but does not want to go home and have to return to the hospital soon after discharge. Constitutional: No fever, No chills ENT: No hearing loss, No sore throat Respiratory: + cough, + sputum, + shortness of breath Cardiovascular: No chest pain Abdomen: + pain, No nausea, No vomiting, No diarrhea Neurologic: + weakness, + numbness/tingling Psychiatric: + depression symptoms, + anhedonism All Other Systems: Reviewed and Negative Medications Current Inpatient Medications Medications (Trade) Dose Ordered Sig/[place] Route Start Time Stop Time Status Last Admin Dose Admin Ondansetron HCl (Zofran Inj) 4 mg Q6H PRN IV 05/05/18 00:15 06/04/18 00:14 05/13/18 14:00 4 MG Carvedilol (Coreg Tab) 3.125 mg BID PO 05/05/18 01:00 06/04/18 00:59 05/14/18 07:55 3.125 MG Lactulose (Chronulac Syrup) 20 gm TID PRN PO 05/05/18 09:00 06/04/18 08:59 Ergocalciferol (Vitamin D Cap) 50,000 interunit Fr@0900 PO 05/07/18 09:00 06/06/18 08:59 05/14/18 07:55 50,000 INTERUNIT Pantoprazole Sodium (Protonix Tab) 40 mg BID PO 05/05/18 09:00 06/04/18 08:59 05/14/18 07:55 40 MG Salmeterol Xinafoate/ Fluticasone (Advair Diskus 500/50 Inh) 1 puff BID INH 05/05/18 09:00 06/04/18 08:59 05/14/18 07:55 1 PUFF Albuterol/ Ipratropium (Combivent Respimat Inh) 1 puffs QID PRN INH 05/05/18 02:30 06/04/18 02:29 05/10/18 08:45 1 PUFFS Amiodarone HCl (Cordarone Tab) 200 mg QAM PO 05/06/18 09:00 06/05/18 08:59 05/14/18 07:55 200 MG Midodrine (Proamatine Tab) 7.5 mg 0800,1200,1600 PO 05/08/18 16:00 06/04/18 07:59 05/14/18 12:59 7.5 MG Octreotide Acetate (Sandostatin Inj) 100 mcg Q8H SQ 05/08/18 14:00 06/07/18 13:59 05/13/18 05:27 100 MCG Albuterol Sulfate (Ventolin 0.083% 2.5MG/3ML Neb) 5 mg Q6R PRN INH 05/09/18 12:45 06/08/18 12:44 Hydromorphone HCl (Dilaudid Inj) 0.5 mg Q4H PRN IV 05/09/18 15:15 05/19/18 07:59 05/13/18 21:45 0.5 MG Prednisone (PredniSONE TAB) 20 mg DAILY PO 05/13/18 09:00 06/12/18 08:59 05/14/18 07:55 20 MG Guaifenesin (Mucinex Contr Rel Tab) 600 mg Q12 PO 05/13/18 21:00 06/12/18 20:59 05/14/18 07:55 600 MG Ranitidine HCl (zANTac TAB) 150 mg Q24H PRN PO 05/13/18 10:30 06/12/18 10:29 Calcium Carbonate (Tums Chew Tab) 500 mg QID PRN PO 05/14/18 12:45 06/13/18 12:44 Objective Vital Signs Date Time Temp Pulse Resp B/P (MAP) Pulse Ox O2 Delivery O2 Flow Rate FiO2 05/14/18 08:00 Nasal Cannula 3.0 05/14/18 07:55 62 05/14/18 07:33 36.3 51 16 112/61 (78) 91 Nasal Cannula 3.0 05/14/18 00:25 Nasal Cannula 3.0 05/13/18 23:29 36.3 51 16 127/63 (84) 94 05/13/18 20:28 58 133/62 (85) Physical Exam General Appearance: WD/WN, no apparent distress Eyes: PERRL, EOMI, + abnormal sclerae exam (icterus) ENT: hearing grossly normal Neck: no carotid bruits, trachea midline Respiratory/Chest: no respiratory distress, no accessory muscle use, + decreased breath sounds, + wheezing (improving) Cardiovascular: no murmur, + bradycardia Abdomen: non tender, soft, + distended Extremities: no calf tenderness, + pedal edema (2+ bilat to knees) Neurologic/Psychiatric: alert, oriented x 3, + depressed affect Skin: + jaundice Laboratory Results Last Resulted 05/14/18 06:47 Last Resulted 05/14/18 06:47 Assessment and Plan 63-year-old male admitted on 04 May 2018 for worsening fatigue and cough over the past few weeks. PMH: Decompensated cirrhosis, CHF, COPD, Atrial fibrillation, HLD, HTN, CKD stage 4, electrolyte issues (sodium and potassium), pneumonia, upper GI bleed Healthcare acquired pneumonia: - Admit chest x-ray concerning for atelectasis or pneumonitis. DCd empiric vancomycin, zosyn. DCd Levaquin - Sputum cultures noted heavy normal silvestre. Repeat chest x-ray on 08 May was suggestive of left base pneumonia or aspiration pneumonitis. - BCx NGTD. - Prior speech evaluations did not note evidence of aspiration risk (see related note). We will not pursue further workup at this time. - WBC elevated; CRP trend not concerning COPD exacerbation: -Baseline 2 L nasal cannula at night only at home. Has been on 3-4.5L NC while in hospital. -On his home Advair. -Tapering solumedrol 2/2 azotemia, started on prednisone 20 -Patient has declined DuoNeb's, preferring as needed Combivent. Some acute episodes of shortness of breath as inpatient, responding well to albuterol nebs. -Overall, working to wean off oxygen requirement. 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 Proctor at [facility]. GI onboard here, see related notes. Patient's meld score is 26. [facility] is pending six months of sobriety (September ) before initiating liver transplant workup. - Discussion here of MRCP for evaluation of elevated alk phos but patient is claustrophobic. Liver enzymes have varied between improvement and worsening. Continue discussions on timing of EUS. - S/p paracentesis on 06 May, removing 6 L of fluid and 05/11/18, removing 5L of fluid Related ascites fluid culture NGTD. - Continuing albumin per nephrology/GI recommendations - Patient has elected to go home on hospice as of 05/14/18. CM set up with [facility], who can perform palliative paracentesis. Patient and family not ready for him to return home but will be soon. DOMINIQUE with history of stage IV CKD: - Admit Cr 2.6, presently 2.04 - Prior Cr roughly in the mid 1's (January 2018). UA on admit not suggestive of UTI. FeNa suggests prerenal source, but also concerns with rehydration and hepatorenal syndrome. - Nephrology consulted, see related notes. Mild confusion and elevated ammonia level: -Likely hepatic encephalopathy. Lactulose was initially ordered as TID prn ( with no doses to date). -Remains A&O w/o confusion in past 48 hrs. Ammonia levels trended down to nl. Thrombocytopenia: Platelets decreased. No evidence of acute bleeding. Monitoring. Hyperkalemia: Admit K 5.6. EKG was NSR with first-degree AV block. K 5.3 today. Monitoring. Possible moderate malnutrition: Recommend low-fat, low-salt diet. Nutrition consulted. - Esophageal varices and PUD: Is on Coreg. INR has remained stable around 1.6 - 1.7. Is off anticoagulation due to risk of recurrent GI bleed. - Portal hypertension: On Coreg. - CHF: No evidence of the same on chest imaging. Monitoring. - Paroxysmal A. fib: On Coreg and amiodarone. - Hyperlipidemia: Not on statin due to liver disease. Code status: DO NOT RESUSCITATE Diet: Low-fat, low-sodium diet. DVT prophy: Holding chemical anticoagulation due to recent GI bleed and holding SCD's due to lower extremity edema. PT/OT: Ongoing. Dispo: Admitted to Tele. Lives with at home, possibly home tomorrow. Resident Physician Supervision Note: I interviewed and examined the patient. Discussed with Dr. Carreno and agree with findings and plan as documented in the note. Any exceptions or clarifications are listed here: None Documented By: Sanford Rodrigues breathing feeling better vitals noted nad breathing unlabored no r/r/w good effort no pallor or icterus HCAP - improving - finish course of levaquin, wean O2, may need at home, added mucolytics, continue supportive care, no new needs now cirrhosis w ascites, severe liver disease - moving to more palliative approach otherwise as above Resident Tracking Resident Involvement: Resident Care Provided Care Provided: Adult Hospital Medicine
[2018-05-14 16:00] VITALS: BP 105/61; PULSE 51; TEMP 36.2; O2SAT 95
--- NOTE | 2018-05-14 18:37 | GASTROENTEROLOGY PROGRESS NOTE ---
DATE: 05/14/2018 SUBJECTIVE: Chart reviewed, patient examined. The patient resting comfortably in bed. Minimal tenderness around the umbilicus is reported. He reports tolerating meals well. There is no melena or bright red blood per rectum and actually he had his first bowel movement since Thursday, which is not overly loose. His respiratory status is satisfactory to him. MEDICATIONS: List includes calcium carbonate, guaifenesin, ranitidine, prednisone, albuterol, midodrine, octreotide drip, ergocalciferol, amiodarone, lactulose p.r.n. constipation, pantoprazole, fluticasone, Advair, carvedilol b.i.d. He is no longer on antibiotics or albumin. LABORATORY STUDIES: Today, white count is elevated at 21.7, but down from 23.9 yesterday, hemoglobin stable at 10.7. Serum chemistry, BUN and creatinine are 126 and 2.04, which although elevated the creatinine is down from yesterday at 2.28. The high point appears to be 2.62. His urinary intake and output showed a urine total of 1350 mL through midnight last night. Currently, he has taken in 660 twice daily. PHYSICAL EXAMINATION: VITAL SIGNS: Currently blood pressure 105/61, 95% on 3 liters, 36.2 oral, respirations 16. Weight is down from 05/11/2018, and is currently 97.1 kg. GENERAL: The patient is awake, alert, and oriented x3. HEENT: Sclerae are anicteric, conjunctiva moist. Oral mucosa moist. HEART: Normal S1, S2. LUNGS: Decreased breath sounds at bases. ABDOMEN: Soft, nontender, nondistended with positive bowel sounds. I do not appreciate tense ascites. EXTREMITIES: Showed trace to +1 pitting edema, but clearly have improved over the week. RECTAL: Deferred. IMPRESSION: The patient's major issues at the present time are his likely hepatorenal syndrome and the leukocytosis of unclear origin. The patient did have a paracentesis on 05/06/2018 as well as on 05/11/2018. The bile duct is unchanged at 1.3 cm without intrahepatic ductal dilation and only a small amount of ascites was appreciated, particularly around the liver. There are gallstones and sludge present. PLAN: Would continue the results of paracentesis that removed 5 liters of fluid. If white count persists and if ascites recurs, it may be prudent to re-tap this with cultures and cell count to exclude SBP. There is no evidence of diarrhea presently, but if this occurs assessment for C. diff is prudent. Dr. Johnston will be covering this weekend. ROMELIAD
[2018-05-14] MEDS: HYDROmorphone INJ 0.5 MG/0.5 ML SYR IV PRN (21:33)
[2018-05-14 23:00] VITALS: BP 128/62; PULSE 51; TEMP 36.2; O2SAT 94
[2018-05-15] MEDS: OCTREOTIDE ACETATE 100 MCG/ML VIAL SQ SCH ×3 (04:54→21:22)
[2018-05-15 06:17] LABS: HEMATOCRIT 32.6 % (42-52); MEAN CELL VOLUME 103.5 fL (80-100); MEAN CORPUSCULAR HEMOGLOBIN 34.9 pg (25-34); MEAN CORPUSCULAR HGB CONC 33.7 g/dl (32-36); RED CELL DISTRIBUTION WIDTH CV 18.4 % (11.5-14.5); RED CELL DISTRIBUTION WIDTH SD 69.6 fL (36.4-46.3); WHITE BLOOD COUNT 20.38 K/uL (4.8-10.8)
[2018-05-15 06:23] LABS: MEAN PLATELET VOLUME 10.5 fL (7.4-10.4); PLATELET COUNT 46 K/uL (130-400)
[2018-05-15 06:58] LABS: ALBUMIN 2.8 gm/dl (3.4-5.0); CALCIUM 8.1 mg/dl (8.5-10.1); CREATININE 1.99 mg/dl (0.60-1.40); POTASSIUM 5.1 mmol/L (3.5-5.1); TOTAL PROTEIN 5.1 gm/dl (6.4-8.2)
[2018-05-15] MEDS: FLUTICASONE/SALMETEROL (ADVAIR) 500/50 INH 14 PUFF INH SCH ×2 (08:02→21:22)
[2018-05-15] MEDS: PANTOprazole SOD 40 MG TAB PO SCH ×2 (08:03→21:21)
[2018-05-15] MEDS: CARVEDILOL 3.125 MG TAB PO SCH ×2 (08:03→21:21)
[2018-05-15] MEDS: MIDODRINE 2.5 MG TAB PO SCH ×3 (08:04→15:52)
[2018-05-15] MEDS: GUAIFENESIN 600 MG TABCR PO SCH ×2 (08:04→21:21)
[2018-05-15] MEDS: AMIODARONE 200 MG TAB PO SCH (08:05)
[2018-05-15 08:17] VITALS: BP 105/60; PULSE 54; O2SAT 94
--- NOTE | 2018-05-15 10:32 | Nephrology Progress Note ---
Nephrology Progress Note Date of Service May 15, 2018. Chief Complaint DOMINIQUE Subjective No acute events overnight. Patient and his working through palliative care to detail goals of care. Referral for hospice has been made. Manuel is breathing comfortably on supplemental O2. Ascites not uncomfortable. Appetite poor. No lightheadedness or dizziness. No fevers or chills. Review of Systems A complete review of systems was performed. Pertinent positives are noted above. All other systems are negative. Vital Signs Last 8 Hrs Date Time Temp Pulse Resp B/P (MAP) Pulse Ox O2 Delivery O2 Flow Rate FiO2 05/15/18 08:17 54 20 105/60 (75) 94 Nasal Cannula 3.0 Last Recorded Weight Weight (Kilograms): 95.100 Physical Exam General Appearance: no apparent distress, + thin Head: normocephalic, atraumatic Eyes: normal inspection, + abnormal sclerae exam ENT: normal ENT inspection, pharynx normal Neck: supple, no JVD Respiratory/Chest: lungs clear, no respiratory distress, no accessory muscle use Cardiovascular: regular rate, rhythm, no gallop Abdomen/GI: non tender, + distended Extremities/Musculoskelatal: + pedal edema, + swelling Neurologic/Psych: alert, + depressed affect Family History Cancer Heart disease Hypertension Negative for CKD / ESRD Social History Smoking Status: Current every day smoker Drug Use: none Marital Status: Housing Status: lives with significant other 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 H/o heavy alcohol use (last drink 03/22). Laboratory Results Past 24 Hours 05/15/18 05:35 05/15/18 05:35 Test 05/15/18 05:35 Red Blood Count 3.15 M/uL (4.7-6.1) Mean Corpuscular Volume 103.5 fL (80-100) Mean Corpuscular Hemoglobin 34.9 pg (25-34) Mean Corpuscular Hemoglobin Concent 33.7 g/dl (32-36) RDW Standard Deviation 69.6 fL (36.4-46.3) RDW Coefficient of Variation 18.4 % (11.5-14.5) Mean Platelet Volume 10.5 fL (7.4-10.4) Anion Gap 7.0 mmol/L (3-11) Est Creatinine Clear Calc Drug Dose 43.6 ml/min Estimated GFR () 39.9 Estimated GFR (Non- 34.5 BUN/Creatinine Ratio 61.6 (10-20) Calcium Level 8.1 mg/dl (8.5-10.1) Total Bilirubin 4.3 mg/dl (0.2-1) Aspartate Amino Transf (AST/SGOT) 53 U/L (15-37) Alanine Aminotransferase (ALT/SGPT) 60 U/L (12-78) Alkaline Phosphatase 145 U/L (45-117) Total Protein 5.1 gm/dl (6.4-8.2) Albumin 2.8 gm/dl (3.4-5.0) Globulin 2.3 gm/dl (2.5-4.0) Albumin/Globulin Ratio 1.2 (0.9-2) Allergies Coded Allergies: No Known Allergies (Unverified , 05/06/18) Medications Current Inpatient Medications Medications (Trade) Dose Ordered Sig/Frank[place] Route Start Time Stop Time Status Last Admin Dose Admin Ondansetron HCl (Zofran Inj) 4 mg Q6H PRN IV 05/05/18 00:15 06/04/18 00:14 05/13/18 14:00 4 MG Carvedilol (Coreg Tab) 3.125 mg BID PO 05/05/18 01:00 06/04/18 00:59 05/14/18 07:55 3.125 MG Lactulose (Chronulac Syrup) 20 gm TID PRN PO 05/05/18 09:00 06/04/18 08:59 Ergocalciferol (Vitamin D Cap) 50,000 interunit Fr@0900 PO 05/07/18 09:00 06/06/18 08:59 05/14/18 07:55 50,000 INTERUNIT Pantoprazole Sodium (Protonix Tab) 40 mg BID PO 05/05/18 09:00 06/04/18 08:59 05/15/18 08:03 40 MG Salmeterol Xinafoate/ Fluticasone (Advair Diskus 500/50 Inh) 1 puff BID INH 05/05/18 09:00 06/04/18 08:59 05/15/18 08:02 1 PUFF Albuterol/ Ipratropium (Combivent Respimat Inh) 1 puffs QID PRN INH 05/05/18 02:30 8/31/18 02:29 05/10/18 08:45 1 PUFFS Amiodarone HCl (Cordarone Tab) 200 mg QAM PO 05/06/18 09:00 06/05/18 08:59 05/15/18 08:05 200 MG Midodrine (Proamatine Tab) 7.5 mg 0800,1200,1600 PO 05/08/18 16:00 06/04/18 07:59 05/15/18 08:04 7.5 MG Octreotide Acetate (Sandostatin Inj) 100 mcg Q8H SQ 05/08/18 14:00 06/07/18 13:59 05/13/18 05:27 100 MCG Albuterol Sulfate (Ventolin 0.083% 2.5MG/3ML Neb) 5 mg Q6R PRN INH 05/09/18 12:45 06/08/18 12:44 Hydromorphone HCl (Dilaudid Inj) 0.5 mg Q4H PRN IV 05/09/18 15:15 05/19/18 07:59 05/14/18 21:33 0.5 MG Prednisone (PredniSONE TAB) 20 mg DAILY PO 05/13/18 09:00 06/12/18 08:59 05/15/18 08:03 20 MG Guaifenesin (Mucinex Contr Rel Tab) 600 mg Q12 PO 05/13/18 21:00 06/12/18 20:59 05/15/18 08:04 600 MG Ranitidine HCl (zANTac TAB) 150 mg Q24H PRN PO 05/13/18 10:30 06/12/18 10:29 Calcium Carbonate (Tums Chew Tab) 500 mg QID PRN PO 05/14/18 12:45 06/13/18 12:44 Impression (1) Hepatorenal syndrome (2) DOMINIQUE (acute kidney injury) (3) Chronic kidney disease (4) Cirrhosis (5) Hyponatremia Recommendations Creatinine remains stable/improved. Metabolic profile otherwise acceptable with persistent azotemia. Urine output remains nonoliguric. Potassium (hyperkalemia) improved. Remains on a low K diet. Tolerated Furosemide. Slightly negative fluid balance this AM and eating and drinking little. He has no nausea, pericardial friction rub or other symptom to suggest uremia. Low potassium diet has been ordered. Albumin infusions were discontinued 05/12/18. Will continue Midodrine and Octreotide (Octreotide started 05/08/18) for now while inpatient. SBP has been acceptable at 100 - 130 mm HG. Carvedilol held and dosing of midodrine appears to be adequate. Prognosis remains guarded. No current indication for dialysis. 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
--- NOTE | 2018-05-15 13:11 | Gastroenterology Progress Note ---
Progress Note Date of Service: May 15, 2018 Subjective Pt evaluation today including: conversation w/ patient, conversation w/ family (), physical exam, chart review, lab review, review of studies, review of inpatient medication list cc f/u cirrhosis, ascites HPI Pt denies abd pain. Tolerating diet. Review of Systems Respiratory: No shortness of breath Cardiac: No chest pain Medications Current Inpatient Medications Medications (Trade) Dose Ordered Sig/[place] Route Start Time Stop Time Status Last Admin Dose Admin Ondansetron HCl (Zofran Inj) 4 mg Q6H PRN IV 05/05/18 00:15 06/04/18 00:14 05/13/18 14:00 4 MG Carvedilol (Coreg Tab) 3.125 mg BID PO 05/05/18 01:00 06/04/18 00:59 05/14/18 07:55 3.125 MG Lactulose (Chronulac Syrup) 20 gm TID PRN PO 05/05/18 09:00 06/04/18 08:59 Ergocalciferol (Vitamin D Cap) 50,000 interunit Fr@0900 PO 05/07/18 09:00 06/06/18 08:59 05/14/18 07:55 50,000 INTERUNIT Pantoprazole Sodium (Protonix Tab) 40 mg BID PO 05/05/18 09:00 06/04/18 08:59 05/15/18 08:03 40 MG Salmeterol Xinafoate/ Fluticasone (Advair Diskus 500/50 Inh) 1 puff BID INH 05/05/18 09:00 06/04/18 08:59 05/15/18 08:02 1 PUFF Albuterol/ Ipratropium (Combivent Respimat Inh) 1 puffs QID PRN INH 05/05/18 02:30 06/04/18 02:29 05/10/18 08:45 1 PUFFS Amiodarone HCl (Cordarone Tab) 200 mg QAM PO 05/06/18 09:00 06/05/18 08:59 05/15/18 08:05 200 MG Midodrine (Proamatine Tab) 7.5 mg 0800,1200,1600 PO 05/08/18 16:00 06/04/18 07:59 05/15/18 12:07 7.5 MG Octreotide Acetate (Sandostatin Inj) 100 mcg Q8H SQ 05/08/18 14:00 06/07/18 13:59 05/13/18 05:27 100 MCG Albuterol Sulfate (Ventolin 0.083% 2.5MG/3ML Neb) 5 mg Q6R PRN INH 05/09/18 12:45 06/08/18 12:44 Hydromorphone HCl (Dilaudid Inj) 0.5 mg Q4H PRN IV 05/09/18 15:15 05/19/18 07:59 05/14/18 21:33 0.5 MG Prednisone (PredniSONE TAB) 20 mg DAILY PO 05/13/18 09:00 06/12/18 08:59 05/15/18 08:03 20 MG Guaifenesin (Mucinex Contr Rel Tab) 600 mg Q12 PO 05/13/18 21:00 06/12/18 20:59 05/15/18 08:04 600 MG Ranitidine HCl (zANTac TAB) 150 mg Q24H PRN PO 05/13/18 10:30 06/12/18 10:29 Calcium Carbonate (Tums Chew Tab) 500 mg QID PRN PO 05/14/18 12:45 06/13/18 12:44 Objective Vital Signs Date Time Temp Pulse Resp B/P (MAP) Pulse Ox O2 Delivery O2 Flow Rate FiO2 05/15/18 08:17 54 20 105/60 (75) 94 Nasal Cannula 3.0 05/15/18 08:00 Nasal Cannula 3.0 05/15/18 00:00 Nasal Cannula 3.0 05/14/18 23:00 36.2 51 18 128/62 (84) 94 Nasal Cannula 3.0 05/14/18 16:00 36.2 51 16 105/61 (76) 95 Nasal Cannula 3.0 05/14/18 16:00 Nasal Cannula 3.0 Physical Exam General Appearance: WD/WN, no apparent distress Respiratory/Chest: lungs clear, no respiratory distress Cardiovascular: regular rate, rhythm, no murmur Abdomen: normal bowel sounds, + pertinent finding (distended but soft, no guarding nor rebound) Neurologic/Psych: alert, oriented x 3 Skin: normal color Laboratory Results Last 24 Hours Test 05/15/18 05:35 White Blood Count 20.38 K/uL Red Blood Count 3.15 M/uL Hemoglobin 11.0 g/dL Hematocrit 32.6 % Mean Corpuscular Volume 103.5 fL Mean Corpuscular Hemoglobin 34.9 pg Mean Corpuscular Hemoglobin Concent 33.7 g/dl RDW Standard Deviation 69.6 fL RDW Coefficient of Variation 18.4 % Platelet Count 46 K/uL Mean Platelet Volume 10.5 fL Sodium Level 140 mmol/L Potassium Level 5.1 mmol/L Chloride Level 105 mmol/L Carbon Dioxide Level 28 mmol/L Anion Gap 7.0 mmol/L Blood Urea Nitrogen 123 mg/dl Creatinine 1.99 mg/dl Est Creatinine Clear Calc Drug Dose 43.6 ml/min Estimated GFR () 39.9 Estimated GFR (Non- 34.5 BUN/Creatinine Ratio 61.6 Random Glucose 103 mg/dl Calcium Level 8.1 mg/dl Total Bilirubin 4.3 mg/dl Aspartate Amino Transf (AST/SGOT) 53 U/L Alanine Aminotransferase (ALT/SGPT) 60 U/L Alkaline Phosphatase 145 U/L Total Protein 5.1 gm/dl Albumin 2.8 gm/dl Globulin 2.3 gm/dl Albumin/Globulin Ratio 1.2 Assessment and Plan ascites-s/p paracentesis 05/06 and 05/11/18--WBC on 05/06 82 so no indication of SBP. Emphasized low Na diet at home and watch labels. elevated WBC--slightly improved--workup per hospitlist--steroids would not explect to go this high, if does not improve or worsen then would recommend repeat paraacentesis with cell count to make sure has not developed SBP. cirrhosis--secondary to ETOH but patient not a candidate for transplant evaluatiion until 09/2018 hepatorenal syndrome--improving slowly on octreotide and midodrine hepatic encephalopathy--patient alert. Continue lactulose, ammonia on 05/08 normal. dilated bile duct--1.3 cm--cannot do MRCP secondary to claustrophobia
[2018-05-15] MEDS: ONDANSETRON INJ 2 MG/ML 2 ML VIAL IV PRN (14:09)
[2018-05-15 14:25] VITALS: BP 134/67; PULSE 89; TEMP 36.7; O2SAT 95
--- NOTE | 2018-05-15 15:11 | Family Medicine Progress Note ---
Progress Note Date of Service May 15, 2018. Subjective Pt evaluation today including: conversation w/ patient, conversation w/ family , physical exam, chart review, lab review, review of studies Voiding: no voiding problems, no incontinence Patient reports doing well this morning. Denies abdominal pain, n/v/d. He had a normal bowel movement this am and says that he is tolerating meals fine. Constitutional: No fever, No chills, No sweats, No weight loss Respiratory: No cough, No sputum, No wheezing, No shortness of breath Cardiovascular: No chest pain, No edema, No palpitations Abdomen: No pain, No nausea, No vomiting, No diarrhea, No constipation, No GI bleeding Male : + urinary frequency, + nocturia more than once/night, + slowing stream, No dysuria, No incontinence, No hematuria Medications Current Inpatient Medications Medications (Trade) Dose Ordered Sig/Franklyn Route Start Time Stop Time Status Last Admin Dose Admin Ondansetron HCl (Zofran Inj) 4 mg Q6H PRN IV 05/05/18 00:15 06/04/18 00:14 05/15/18 14:09 4 MG Carvedilol (Coreg Tab) 3.125 mg BID PO 05/05/18 01:00 06/04/18 00:59 05/14/18 07:55 3.125 MG Lactulose (Chronulac Syrup) 20 gm TID PRN PO 05/05/18 09:00 06/04/18 08:59 Ergocalciferol (Vitamin D Cap) 50,000 interunit Fr@0900 PO 05/07/18 09:00 06/06/18 08:59 05/14/18 07:55 50,000 INTERUNIT Pantoprazole Sodium (Protonix Tab) 40 mg BID PO 05/05/18 09:00 06/04/18 08:59 05/15/18 08:03 40 MG Salmeterol Xinafoate/ Fluticasone (Advair Diskus 500/50 Inh) 1 puff BID INH 05/05/18 09:00 06/04/18 08:59 05/15/18 08:02 1 PUFF Albuterol/ Ipratropium (Combivent Respimat Inh) 1 puffs QID PRN INH 05/05/18 02:30 06/04/18 02:29 05/10/18 08:45 1 PUFFS Amiodarone HCl (Cordarone Tab) 200 mg QAM PO 05/06/18 09:00 06/05/18 08:59 05/15/18 08:05 200 MG Midodrine (Proamatine Tab) 7.5 mg 0800,1200,1600 PO 05/08/18 16:00 06/04/18 07:59 05/15/18 12:07 7.5 MG Octreotide Acetate (Sandostatin Inj) 100 mcg Q8H SQ 05/08/18 14:00 06/07/18 13:59 05/13/18 05:27 100 MCG Albuterol Sulfate (Ventolin 0.083% 2.5MG/3ML Neb) 5 mg Q6R PRN INH 05/09/18 12:45 06/08/18 12:44 Hydromorphone HCl (Dilaudid Inj) 0.5 mg Q4H PRN IV 05/09/18 15:15 05/19/18 07:59 05/14/18 21:33 0.5 MG Prednisone (PredniSONE TAB) 20 mg DAILY PO 05/13/18 09:00 06/12/18 08:59 05/15/18 08:03 20 MG Guaifenesin (Mucinex Contr Rel Tab) 600 mg Q12 PO 05/13/18 21:00 06/12/18 20:59 05/15/18 08:04 600 MG Ranitidine HCl (zANTac TAB) 150 mg Q24H PRN PO 05/13/18 10:30 06/12/18 10:29 Calcium Carbonate (Tums Chew Tab) 500 mg QID PRN PO 05/14/18 12:45 06/13/18 12:44 Objective Vital Signs Date Time Temp Pulse Resp B/P (MAP) Pulse Ox O2 Delivery O2 Flow Rate FiO2 05/15/18 14:25 36.7 89 18 134/67 (89) 95 05/15/18 08:17 54 20 105/60 (75) 94 Nasal Cannula 3.0 05/15/18 08:00 Nasal Cannula 3.0 05/15/18 00:00 Nasal Cannula 3.0 05/14/18 23:00 36.2 51 18 128/62 (84) 94 Nasal Cannula 3.0 05/14/18 16:00 36.2 51 16 105/61 (76) 95 Nasal Cannula 3.0 05/14/18 16:00 Nasal Cannula 3.0 Physical Exam General Appearance: WD/WN, no apparent distress Neck: supple, no adenopathy, thyroid normal Respiratory/Chest: chest non-tender, lungs clear, normal breath sounds, no respiratory distress, no accessory muscle use Cardiovascular: regular rate, rhythm, no edema, no murmur Abdomen: normal bowel sounds, non tender, no organomegaly, no pulsatile mass, + distended Extremities: non-tender, normal inspection, + pedal edema (+2 ), + pertinent finding (hyperpigementation of bilateral LE, consistent with stasis dermatitis ) Neurologic/Psychiatric: alert, normal mood/affect, oriented x 3 Skin: normal color, warm/dry, no rash Laboratory Results 05/15/18 05:35 05/15/18 05:35 Test 05/15/18 05:35 Red Blood Count 3.15 M/uL (4.7-6.1) Mean Corpuscular Volume 103.5 fL (80-100) Mean Corpuscular Hemoglobin 34.9 pg (25-34) Mean Corpuscular Hemoglobin Concent 33.7 g/dl (32-36) RDW Standard Deviation 69.6 fL (36.4-46.3) RDW Coefficient of Variation 18.4 % (11.5-14.5) Mean Platelet Volume 10.5 fL (7.4-10.4) Anion Gap 7.0 mmol/L (3-11) Est Creatinine Clear Calc Drug Dose 43.6 ml/min Estimated GFR () 39.9 Estimated GFR (Non- 34.5 BUN/Creatinine Ratio 61.6 (10-20) Calcium Level 8.1 mg/dl (8.5-10.1) Total Bilirubin 4.3 mg/dl (0.2-1) Aspartate Amino Transf (AST/SGOT) 53 U/L (15-37) Alanine Aminotransferase (ALT/SGPT) 60 U/L (12-78) Alkaline Phosphatase 145 U/L (45-117) Total Protein 5.1 gm/dl (6.4-8.2) Albumin 2.8 gm/dl (3.4-5.0) Globulin 2.3 gm/dl (2.5-4.0) Albumin/Globulin Ratio 1.2 (0.9-2) Assessment and Plan 63-year-old male admitted on 04 May 2018 for worsening fatigue and cough over the past few weeks. PMH: Decompensated cirrhosis, CHF, COPD, Atrial fibrillation, HLD, HTN, CKD stage 4, electrolyte issues (sodium and potassium), pneumonia, upper GI bleed Leukocytosis 2/2 SBP vs steroids - Patient is not exhibiting abdominal tenderness on exam, remains afebrile and previous paracentesis w/o signs of infx - Will continue to follow white count and clinical condition Healthcare acquired pneumonia: - Treated initially with Vanc/Zosyn based on admission Xray, Dc'ed following continued clinical stability and normal exam. CXR showed signs of aspiration pneumonitis - Prior speech evaluations did not note evidence of aspiration risk (see related note). We will not pursue further workup at this time. COPD exacerbation: -Baseline 2 L nasal cannula at night only at home. - On 3 L currently -On his home Advair. -Tapering solumedrol 2/2 azotemia, started on prednisone 20 -Patient has declined DuoNeb's, preferring as needed Combivent. Some acute episodes of shortness of breath as inpatient, responding well to albuterol nebs. -Overall, working to wean off oxygen requirement. 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 Proctor at [place]. GI following - Patient's meld score is 26. [place] is pending six months of sobriety ( September) before initiating liver transplant workup. - Discussion here of MRCP for evaluation of elevated alk phos but patient is claustrophobic. - Liver enzymes have varied between improvement and worsening. Continue discussions on timing of EUS. - S/p paracentesis on 06 May, removing 6 L of fluid and 05/11/18, removing 5L of fluid Related ascites fluid culture NGTD. Continue albumin - Patient has elected to go home on hospice as of 05/14/18. CM set up with [facility], who can perform palliative paracentesis. - Esophageal varices, portal hypertension, PUD: Is on Coreg. INR has remained stable around 1.6 - 1.7. Is off anticoagulation due to risk of recurrent GI bleed. DOMINIQUE with history of stage IV CKD: - Admit Cr 2.6, improving, 1.99 today - Prior Cr roughly in the mid 1's (January 2018). - UA on admit not suggestive of UTI. - FeNa suggests prerenal cause, but also concerns with rehydration and hepatorenal syndrome. - Nephrology consulted, see related notes. Mild confusion and elevated ammonia level: -Likely hepatic encephalopathy. Lactulose was initially ordered as TID prn ( with no doses to date). -Remains A&O w/o confusion in past 48 hrs. Ammonia levels trended down to nl. Thrombocytopenia: - Platelets decreased. No evidence of acute bleeding. Monitoring. Hyperkalemia: - Admit K 5.6. EKG was NSR with first-degree AV block. K 5.3 today. Monitoring. Possible moderate malnutrition - Recommend low-fat, low-salt diet. Nutrition consulted. CHF: - No evidence on chest imaging. Monitoring. Paroxysmal A. fib: - On Coreg and amiodarone. Hyperlipidemia: - Not on statin due to liver disease. Code status: DO NOT RESUSCITATE Diet: Low-fat, low-sodium diet. DVT prophy: Holding chemical anticoagulation due to recent GI bleed and holding SCD's due to lower extremity edema. PT/OT: Ongoing. Dispo: Admitted to Tele. Lives with at home, possibly home tomorrow.
[2018-05-15 23:22] VITALS: BP 121/64; PULSE 53; TEMP 36.5; O2SAT 93
[2018-05-16] MEDS: HYDROmorphone INJ 0.5 MG/0.5 ML SYR IV PRN (04:59)
[2018-05-16] MEDS: OCTREOTIDE ACETATE 100 MCG/ML VIAL SQ SCH (05:40)
[2018-05-16 06:17] LABS: HEMATOCRIT 31.2 % (42-52); HEMOGLOBIN 10.2 g/dL (14.0-18.0); MEAN CELL VOLUME 105.1 fL (80-100); MEAN CORPUSCULAR HEMOGLOBIN 34.3 pg (25-34); MEAN CORPUSCULAR HGB CONC 32.7 g/dl (32-36); RED CELL DISTRIBUTION WIDTH CV 18.5 % (11.5-14.5); RED CELL DISTRIBUTION WIDTH SD 71.4 fL (36.4-46.3); WHITE BLOOD COUNT 19.87 K/uL (4.8-10.8)
[2018-05-16 06:21] LABS: MEAN PLATELET VOLUME 11.2 fL (7.4-10.4); PLATELET COUNT 47 K/uL (130-400)
[2018-05-16 06:25] LABS: INR 1.7 (0.9-1.1)
[2018-05-16 06:35] LABS: EOS % 0.3 %; EOS ABS # 0.06 K/uL (0-0.5); IG# 0.07 K/uL (0.00-0.02); LYMPH % 6.9 %; LYMPH ABS # 1.38 K/uL (1.2-3.4); MONO % 2.8 %; MONO ABS # 0.55 K/uL (0.11-0.59); NEUT % 89.6 %; NEUT ABS # 17.81 K/uL (1.4-6.5)
[2018-05-16 06:56] LABS: ALBUMIN 2.7 gm/dl (3.4-5.0); CREATININE 1.78 mg/dl (0.60-1.40)
[2018-05-16] MEDS: PANTOprazole SOD 40 MG TAB PO SCH ×2 (08:17→20:46)
[2018-05-16] MEDS: MIDODRINE 2.5 MG TAB PO SCH ×3 (08:18→16:23)
[2018-05-16] MEDS: CARVEDILOL 3.125 MG TAB PO SCH ×2 (08:18→20:46)
[2018-05-16] MEDS: FLUTICASONE/SALMETEROL (ADVAIR) 500/50 INH 14 PUFF INH SCH ×2 (08:19→20:46)
[2018-05-16] MEDS: AMIODARONE 200 MG TAB PO SCH (08:19)
[2018-05-16] MEDS: GUAIFENESIN 600 MG TABCR PO SCH ×2 (08:19→20:47)
--- NOTE | 2018-05-16 11:34 | Family Medicine Progress Note ---
Progress Note Date of Service May 16, 2018. Subjective Doing well this morning, tolerating food, ambulating to the bathroom. Patient does report fractured sleep last night, relates it to not getting much sun light. Says he will keep the shades open today. Denies abdominal pain, n/v/d. No fevers or chills Constitutional: + weakness, + fatigue, No fever, No chills, No sweats, No weight loss Respiratory: No cough, No sputum, No wheezing, No shortness of breath, No dyspnea on exertion Cardiovascular: No chest pain, No orthopnea, No palpitations Abdomen: No pain, No nausea, No vomiting, No diarrhea, No constipation Male : + urinary frequency, + nocturia more than once/night, No dysuria, No hematuria Medications Current Inpatient Medications Medications (Trade) Dose Ordered Sig/Franklyn Route Start Time Stop Time Status Last Admin Dose Admin Ondansetron HCl (Zofran Inj) 4 mg Q6H PRN IV 05/05/18 00:15 06/04/18 00:14 05/15/18 14:09 4 MG Carvedilol (Coreg Tab) 3.125 mg BID PO 05/05/18 01:00 06/04/18 00:59 05/15/18 21:21 3.125 MG Lactulose (Chronulac Syrup) 20 gm TID PRN PO 05/05/18 09:00 06/04/18 08:59 Ergocalciferol (Vitamin D Cap) 50,000 interunit Fr@0900 PO 05/07/18 09:00 06/06/18 08:59 05/14/18 07:55 50,000 INTERUNIT Pantoprazole Sodium (Protonix Tab) 40 mg BID PO 05/05/18 09:00 06/04/18 08:59 05/16/18 08:17 40 MG Salmeterol Xinafoate/ Fluticasone (Advair Diskus 500/50 Inh) 1 puff BID INH 05/05/18 09:00 06/04/18 08:59 05/16/18 08:19 1 PUFF Albuterol/ Ipratropium (Combivent Respimat Inh) 1 puffs QID PRN INH 05/05/18 02:30 06/04/18 02:29 05/10/18 08:45 1 PUFFS Amiodarone HCl (Cordarone Tab) 200 mg QAM PO 05/06/18 09:00 06/05/18 08:59 05/16/18 08:19 200 MG Midodrine (Proamatine Tab) 7.5 mg 0800,1200,1600 PO 05/08/18 16:00 06/04/18 07:59 05/16/18 11:41 7.5 MG Albuterol Sulfate (Ventolin 0.083% 2.5MG/3ML Neb) 5 mg Q6R PRN INH 05/09/18 12:45 06/08/18 12:44 Hydromorphone HCl (Dilaudid Inj) 0.5 mg Q4H PRN IV 05/09/18 15:15 05/19/18 07:59 05/16/18 04:59 0.5 MG Prednisone (PredniSONE TAB) 20 mg DAILY PO 05/13/18 09:00 06/12/18 08:59 05/16/18 08:19 20 MG Guaifenesin (Mucinex Contr Rel Tab) 600 mg Q12 PO 05/13/18 21:00 06/12/18 20:59 05/16/18 08:19 600 MG Ranitidine HCl (zANTac TAB) 150 mg Q24H PRN PO 05/13/18 10:30 06/12/18 10:29 05/16/18 11:40 150 MG Calcium Carbonate (Tums Chew Tab) 500 mg QID PRN PO 05/14/18 12:45 06/13/18 12:44 Objective Vital Signs Date Time Temp Pulse Resp B/P (MAP) Pulse Ox O2 Delivery O2 Flow Rate FiO2 05/16/18 08:00 Nasal Cannula 3.0 05/16/18 00:00 Nasal Cannula 3.0 05/15/18 23:22 36.5 53 18 121/64 (83) 93 Nasal Cannula 3.0 05/15/18 16:00 Nasal Cannula 3.0 05/15/18 14:25 36.7 89 18 134/67 (89) 95 Physical Exam General Appearance: WD/WN, no apparent distress Neck: supple, no adenopathy, no JVD Respiratory/Chest: chest non-tender, lungs clear, no respiratory distress, no accessory muscle use, + decreased breath sounds, + crackles Cardiovascular: regular rate, rhythm, no edema, no murmur Abdomen: normal bowel sounds, no organomegaly, no pulsatile mass, + distended Extremities: non-tender, no calf tenderness, + pedal edema (+2) Neurologic/Psychiatric: alert, normal mood/affect, oriented x 3 Skin: normal color, warm/dry, no rash Laboratory Results 05/16/18 05:46 Red Blood Count 2.97, Mean Corpuscular Volume 105.1, Mean Corpuscular Hemoglobin 34.3, Mean Corpuscular Hemoglobin Concent 32.7, Mean Platelet Volume 11.2, Neutrophils (%) (Auto) 89.6, Lymphocytes (%) (Auto) 6.9, Monocytes (%) ( Auto) 2.8, Eosinophils (%) (Auto) 0.3, Basophils (%) (Auto) 0.0, Neutrophils # ( Auto) 17.81, Lymphocytes # (Auto) 1.38, Monocytes # (Auto) 0.55, Eosinophils # ( Auto) 0.06, Basophils # (Auto) 0.00 05/16/18 05:46 Test 05/16/18 05:46 White Blood Count 19.87 K/uL (4.8-10.8) Red Blood Count 2.97 M/uL (4.7-6.1) Hemoglobin 10.2 g/dL (14.0-18.0) Hematocrit 31.2 % (42-52) Mean Corpuscular Volume 105.1 fL (80-100) Mean Corpuscular Hemoglobin 34.3 pg (25-34) Mean Corpuscular Hemoglobin Concent 32.7 g/dl (32-36) Platelet Count 47 K/uL (130-400) Mean Platelet Volume 11.2 fL (7.4-10.4) Neutrophils (%) (Auto) 89.6 % Lymphocytes (%) (Auto) 6.9 % Monocytes (%) (Auto) 2.8 % Eosinophils (%) (Auto) 0.3 % Basophils (%) (Auto) 0.0 % Neutrophils # (Auto) 17.81 K/uL (1.4-6.5) Lymphocytes # (Auto) 1.38 K/uL (1.2-3.4) Monocytes # (Auto) 0.55 K/uL (0.11-0.59) Eosinophils # (Auto) 0.06 K/uL (0-0.5) Basophils # (Auto) 0.00 K/uL (0-0.2) RDW Standard Deviation 71.4 fL (36.4-46.3) RDW Coefficient of Variation 18.5 % (11.5-14.5) Immature Granulocyte % (Auto) 0.4 % Immature Granulocyte # (Auto) 0.07 K/uL (0.00-0.02) Toxic Vacuolation 1+ Echinocytes 3+ Prothrombin Time 17.8 SECONDS (9.0-12.0) Prothromb Time International Ratio 1.7 (0.9-1.1) Anion Gap 5.0 mmol/L (3-11) Est Creatinine Clear Calc Drug Dose 48.7 ml/min Estimated GFR () 45.7 Estimated GFR (Non- 39.4 BUN/Creatinine Ratio 63.0 (10-20) Calcium Level 8.0 mg/dl (8.5-10.1) Total Bilirubin 4.6 mg/dl (0.2-1) Aspartate Amino Transf (AST/SGOT) 51 U/L (15-37) Alanine Aminotransferase (ALT/SGPT) 58 U/L (12-78) Alkaline Phosphatase 153 U/L (45-117) Total Protein 5.0 gm/dl (6.4-8.2) Albumin 2.7 gm/dl (3.4-5.0) Globulin 2.3 gm/dl (2.5-4.0) Albumin/Globulin Ratio 1.2 (0.9-2) Assessment and Plan 63-year-old male admitted on 04 May 2018 for worsening fatigue and cough over the past few weeks. PMH: Decompensated cirrhosis, CHF, COPD, Atrial fibrillation, HLD, HTN, CKD stage 4, electrolyte issues (sodium and potassium), pneumonia, upper GI bleed Leukocytosis 2/2 steroid treatment vs SBP - Patient is not exhibiting abdominal tenderness on exam, remains afebrile and previous paracentesis w/o signs of infx - Will continue to follow white count and clinical condition - Following GI recommendations, will tap the patient if his condition deteriorates Healthcare acquired pneumonia: - Treated initially with Vanc/Zosyn based on admission Xray, Dc'ed following continued clinical stability and normal exam. CXR showed signs of aspiration pneumonitis - Prior speech evaluations did not note evidence of aspiration risk (see related note). We will not pursue further workup at this time. COPD exacerbation: -Baseline 2 L nasal cannula at night only at home, on 3 L currently -On his home Advair. -Tapering solumedrol 2/2 azotemia, started on prednisone 20 -Patient has declined DuoNeb's, preferring as needed Combivent. Some acute episodes of shortness of breath as inpatient, responding well to albuterol nebs. -Overall, working to wean off oxygen requirement. 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 Proctor at [place]. GI following - Patient's meld score is 26. [place] is pending six months of sobriety ( September) before initiating liver transplant workup. - Discussion here of MRCP for evaluation of elevated alk phos but patient is claustrophobic. - Liver enzymes have varied between improvement and worsening. Continue discussions on timing of EUS. - S/p paracentesis on 06 May, removing 6 L of fluid and 05/11/18, removing 5L of fluid Related ascites fluid culture NGTD. Continue albumin - Patient has elected to go home on hospice as of 05/14/18. CM set up with [facility], who can perform palliative paracentesis. - Esophageal varices, portal hypertension, PUD: Is on Coreg. INR has remained stable around 1.6 - 1.7. Is off anticoagulation due to risk of recurrent GI bleed. DOMINIQUE with history of stage IV CKD: - Admit Cr 2.6, improving, 1.73 today - Prior Cr roughly in the mid 1's (January 2018). - UA on admit not suggestive of UTI. - FeNa suggests prerenal cause, but also concerns with rehydration and hepatorenal syndrome. - Nephrology consulted, see related notes. Mild confusion and elevated ammonia level: -Likely hepatic encephalopathy. Lactulose was initially ordered as TID prn ( with no doses to date). -Remains A&O w/o confusion in past 48 hrs. Ammonia levels trended down to nl. Thrombocytopenia: - Platelets decreased. No evidence of acute bleeding. Monitoring. Hyperkalemia: - Admit K 5.6. EKG was NSR with first-degree AV block. Monitoring. - Improving Possible moderate malnutrition - Recommend low-fat, low-salt diet. Nutrition consulted. CHF: - No evidence on chest imaging. Monitoring. Paroxysmal A. fib: - On Coreg and amiodarone. Hyperlipidemia: - Not on statin due to liver disease. Code status: DO NOT RESUSCITATE Diet: Low-fat, low-sodium diet. DVT prophy: Holding chemical anticoagulation due to recent GI bleed and holding SCD's due to lower extremity edema. PT/OT: Ongoing. Dispo: Lives with at home, awaiting dc following home hospice set up, contact caseworker protective services
--- NOTE | 2018-05-16 12:04 | Nephrology Progress Note ---
Nephrology Progress Note Date of Service May 16, 2018. Chief Complaint DOMINIQUE Subjective No acute events overnight. Mr. Crowley feels reasonably well this morning. He notes that his appetite has improved slightly. He denies any abdominal pain. He denies fevers or chills. Plan for discharge home with hospice tomorrow. Maintaining negative fluid balance. Patient has been refusing octreotide. Review of Systems A complete review of systems was performed. Pertinent positives are noted above. All other systems are negative. Vital Signs Last 8 Hrs Date Time Temp Pulse Resp B/P (MAP) Pulse Ox O2 Delivery O2 Flow Rate FiO2 05/16/18 08:00 Nasal Cannula 3.0 Last Recorded Weight Weight (Kilograms): 94.600 Physical Exam General Appearance: no apparent distress, + pertinent finding (chronically ill appearing) Head: normocephalic, atraumatic, + pertinent finding (temporal wasting) Eyes: normal inspection, + pertinent finding (mildly icteric sclera) Neck: supple Respiratory/Chest: lungs clear, no respiratory distress, no accessory muscle use Cardiovascular: regular rate, rhythm, no gallop Abdomen/GI: non tender, + distended Extremities/Musculoskelatal: + pedal edema, + pertinent finding (chroninc stasis changes) Neurologic/Psych: alert, normal mood/affect Family History Cancer Heart disease Hypertension Negative for CKD / ESRD Social History Smoking Status: Current every day smoker Drug Use: none Marital Status: Housing Status: lives with significant other 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 H/o heavy alcohol use (last drink 03/22). Laboratory Results Past 24 Hours 05/16/18 05:46 Red Blood Count 2.97, Mean Corpuscular Volume 105.1, Mean Corpuscular Hemoglobin 34.3, Mean Corpuscular Hemoglobin Concent 32.7, Mean Platelet Volume 11.2, Neutrophils (%) (Auto) 89.6, Lymphocytes (%) (Auto) 6.9, Monocytes (%) ( Auto) 2.8, Eosinophils (%) (Auto) 0.3, Basophils (%) (Auto) 0.0, Neutrophils # ( Auto) 17.81, Lymphocytes # (Auto) 1.38, Monocytes # (Auto) 0.55, Eosinophils # ( Auto) 0.06, Basophils # (Auto) 0.00 05/16/18 05:46 Test 05/16/18 05:46 White Blood Count 19.87 K/uL (4.8-10.8) Red Blood Count 2.97 M/uL (4.7-6.1) Hemoglobin 10.2 g/dL (14.0-18.0) Hematocrit 31.2 % (42-52) Mean Corpuscular Volume 105.1 fL (80-100) Mean Corpuscular Hemoglobin 34.3 pg (25-34) Mean Corpuscular Hemoglobin Concent 32.7 g/dl (32-36) Platelet Count 47 K/uL (130-400) Mean Platelet Volume 11.2 fL (7.4-10.4) Neutrophils (%) (Auto) 89.6 % Lymphocytes (%) (Auto) 6.9 % Monocytes (%) (Auto) 2.8 % Eosinophils (%) (Auto) 0.3 % Basophils (%) (Auto) 0.0 % Neutrophils # (Auto) 17.81 K/uL (1.4-6.5) Lymphocytes # (Auto) 1.38 K/uL (1.2-3.4) Monocytes # (Auto) 0.55 K/uL (0.11-0.59) Eosinophils # (Auto) 0.06 K/uL (0-0.5) Basophils # (Auto) 0.00 K/uL (0-0.2) RDW Standard Deviation 71.4 fL (36.4-46.3) RDW Coefficient of Variation 18.5 % (11.5-14.5) Immature Granulocyte % (Auto) 0.4 % Immature Granulocyte # (Auto) 0.07 K/uL (0.00-0.02) Toxic Vacuolation 1+ Echinocytes 3+ Prothrombin Time 17.8 SECONDS (9.0-12.0) Prothromb Time International Ratio 1.7 (0.9-1.1) Anion Gap 5.0 mmol/L (3-11) Est Creatinine Clear Calc Drug Dose 48.7 ml/min Estimated GFR () 45.7 Estimated GFR (Non- 39.4 BUN/Creatinine Ratio 63.0 (10-20) Calcium Level 8.0 mg/dl (8.5-10.1) Total Bilirubin 4.6 mg/dl (0.2-1) Aspartate Amino Transf (AST/SGOT) 51 U/L (15-37) Alanine Aminotransferase (ALT/SGPT) 58 U/L (12-78) Alkaline Phosphatase 153 U/L (45-117) Total Protein 5.0 gm/dl (6.4-8.2) Albumin 2.7 gm/dl (3.4-5.0) Globulin 2.3 gm/dl (2.5-4.0) Albumin/Globulin Ratio 1.2 (0.9-2) Allergies Coded Allergies: No Known Allergies (Unverified , 05/06/18) Medications Current Inpatient Medications Medications (Trade) Dose Ordered Sig/Franklyn Route Start Time Stop Time Status Last Admin Dose Admin Ondansetron HCl (Zofran Inj) 4 mg Q6H PRN IV 05/05/18 00:15 06/04/18 00:14 05/15/18 14:09 4 MG Carvedilol (Coreg Tab) 3.125 mg BID PO 05/05/18 01:00 06/04/18 00:59 05/15/18 21:21 3.125 MG Lactulose (Chronulac Syrup) 20 gm TID PRN PO 05/05/18 09:00 06/04/18 08:59 Ergocalciferol (Vitamin D Cap) 50,000 interunit Fr@0900 PO 05/07/18 09:00 06/06/18 08:59 05/14/18 07:55 50,000 INTERUNIT Pantoprazole Sodium (Protonix Tab) 40 mg BID PO 05/05/18 09:00 06/04/18 08:59 05/16/18 08:17 40 MG Salmeterol Xinafoate/ Fluticasone (Advair Diskus 500/50 Inh) 1 puff BID INH 05/05/18 09:00 06/04/18 08:59 05/16/18 08:19 1 PUFF Albuterol/ Ipratropium (Combivent Respimat Inh) 1 puffs QID PRN INH 05/05/18 02:30 06/04/18 02:29 05/10/18 08:45 1 PUFFS Amiodarone HCl (Cordarone Tab) 200 mg QAM PO 05/06/18 09:00 06/05/18 08:59 05/16/18 08:19 200 MG Midodrine (Proamatine Tab) 7.5 mg 0800,1200,1600 PO 05/08/18 16:00 06/04/18 07:59 05/16/18 11:41 7.5 MG Octreotide Acetate (Sandostatin Inj) 100 mcg Q8H SQ 05/08/18 14:00 06/07/18 13:59 05/13/18 05:27 100 MCG Albuterol Sulfate (Ventolin 0.083% 2.5MG/3ML Neb) 5 mg Q6R PRN INH 05/09/18 12:45 06/08/18 12:44 Hydromorphone HCl (Dilaudid Inj) 0.5 mg Q4H PRN IV 05/09/18 15:15 05/19/18 07:59 05/16/18 04:59 0.5 MG Prednisone (PredniSONE TAB) 20 mg DAILY PO 05/13/18 09:00 06/12/18 08:59 05/16/18 08:19 20 MG Guaifenesin (Mucinex Contr Rel Tab) 600 mg Q12 PO 05/13/18 21:00 06/12/18 20:59 05/16/18 08:19 600 MG Ranitidine HCl (zANTac TAB) 150 mg Q24H PRN PO 05/13/18 10:30 06/12/18 10:29 05/16/18 11:40 150 MG Calcium Carbonate (Tums Chew Tab) 500 mg QID PRN PO 05/14/18 12:45 06/13/18 12:44 Impression (1) Hepatorenal syndrome (2) DOMINIQUE (acute kidney injury) (3) Chronic kidney disease (4) Cirrhosis (5) Hyponatremia Recommendations Mr. Crowley developed DOMINIQUE consistent with HRS 1. Thankfully renal function has stabilized/improved. Metabolic profile otherwise acceptable with persistent azotemia. Urine output remains nonoliguric. Octreotide can be discontinued at this time. Patient has been refusing the medication. BP is acceptable on current dose of midodrine. I would encourage continues use of midodrine and holding carvedilol at discharge. Importance of appropriate dietary protein intake reviewed. Medications are appropriate for kidney function.
--- NOTE | 2018-05-16 15:12 | Gastroenterology Progress Note ---
Progress Note Date of Service: May 16, 2018 Subjective Pt evaluation today including: conversation w/ patient, conversation w/ family (), physical exam, chart review, lab review, review of studies, review of inpatient medication list CC f/u ascites, cirrrhosis HPI Pt denies abd guerrero. States he is finding some things he can eat so appetite improving somewhat. States he is having one stool daily. Review of Systems Respiratory: + shortness of breath (stable) Cardiac: No chest pain Medications Current Inpatient Medications Medications (Trade) Dose Ordered Sig/Franklyn Route Start Time Stop Time Status Last Admin Dose Admin Ondansetron HCl (Zofran Inj) 4 mg Q6H PRN IV 05/05/18 00:15 06/04/18 00:14 05/15/18 14:09 4 MG Carvedilol (Coreg Tab) 3.125 mg BID PO 05/05/18 01:00 06/04/18 00:59 05/15/18 21:21 3.125 MG Lactulose (Chronulac Syrup) 20 gm TID PRN PO 05/05/18 09:00 06/04/18 08:59 Ergocalciferol (Vitamin D Cap) 50,000 interunit Fr@0900 PO 05/07/18 09:00 06/06/18 08:59 05/14/18 07:55 50,000 INTERUNIT Pantoprazole Sodium (Protonix Tab) 40 mg BID PO 05/05/18 09:00 06/04/18 08:59 05/16/18 08:17 40 MG Salmeterol Xinafoate/ Fluticasone (Advair Diskus 500/50 Inh) 1 puff BID INH 05/05/18 09:00 06/04/18 08:59 05/16/18 08:19 1 PUFF Albuterol/ Ipratropium (Combivent Respimat Inh) 1 puffs QID PRN INH 05/05/18 02:30 06/04/18 02:29 05/10/18 08:45 1 PUFFS Amiodarone HCl (Cordarone Tab) 200 mg QAM PO 05/06/18 09:00 06/05/18 08:59 05/16/18 08:19 200 MG Midodrine (Proamatine Tab) 7.5 mg 0800,1200,1600 PO 05/08/18 16:00 06/04/18 07:59 05/16/18 11:41 7.5 MG Albuterol Sulfate (Ventolin 0.083% 2.5MG/3ML Neb) 5 mg Q6R PRN INH 05/09/18 12:45 06/08/18 12:44 Hydromorphone HCl (Dilaudid Inj) 0.5 mg Q4H PRN IV 05/09/18 15:15 05/19/18 07:59 05/16/18 04:59 0.5 MG Prednisone (PredniSONE TAB) 20 mg DAILY PO 05/13/18 09:00 06/12/18 08:59 05/16/18 08:19 20 MG Guaifenesin (Mucinex Contr Rel Tab) 600 mg Q12 PO 05/13/18 21:00 06/12/18 20:59 05/16/18 08:19 600 MG Ranitidine HCl (zANTac TAB) 150 mg Q24H PRN PO 05/13/18 10:30 06/12/18 10:29 05/16/18 11:40 150 MG Calcium Carbonate (Tums Chew Tab) 500 mg QID PRN PO 05/14/18 12:45 06/13/18 12:44 Objective Vital Signs Date Time Temp Pulse Resp B/P (MAP) Pulse Ox O2 Delivery O2 Flow Rate FiO2 05/16/18 08:00 Nasal Cannula 3.0 05/16/18 00:00 Nasal Cannula 3.0 05/15/18 23:22 36.5 53 18 121/64 (83) 93 Nasal Cannula 3.0 05/15/18 16:00 Nasal Cannula 3.0 Physical Exam General Appearance: WD/WN, no apparent distress Cardiovascular: regular rate, rhythm, no murmur Abdomen: normal bowel sounds, + pertinent finding (distended but not tense, no guarding nor rebound) Laboratory Results Last 24 Hours Test 05/16/18 05:46 White Blood Count 19.87 K/uL Red Blood Count 2.97 M/uL Hemoglobin 10.2 g/dL Hematocrit 31.2 % Mean Corpuscular Volume 105.1 fL Mean Corpuscular Hemoglobin 34.3 pg Mean Corpuscular Hemoglobin Concent 32.7 g/dl Platelet Count 47 K/uL Mean Platelet Volume 11.2 fL Neutrophils (%) (Auto) 89.6 % Lymphocytes (%) (Auto) 6.9 % Monocytes (%) (Auto) 2.8 % Eosinophils (%) (Auto) 0.3 % Basophils (%) (Auto) 0.0 % Neutrophils # (Auto) 17.81 K/uL Lymphocytes # (Auto) 1.38 K/uL Monocytes # (Auto) 0.55 K/uL Eosinophils # (Auto) 0.06 K/uL Basophils # (Auto) 0.00 K/uL RDW Standard Deviation 71.4 fL RDW Coefficient of Variation 18.5 % Immature Granulocyte % (Auto) 0.4 % Immature Granulocyte # (Auto) 0.07 K/uL Toxic Vacuolation 1+ Echinocytes 3+ Prothrombin Time 17.8 SECONDS Prothromb Time International Ratio 1.7 Sodium Level 138 mmol/L Potassium Level 5.0 mmol/L Chloride Level 106 mmol/L Carbon Dioxide Level 27 mmol/L Anion Gap 5.0 mmol/L Blood Urea Nitrogen 112 mg/dl Creatinine 1.78 mg/dl Est Creatinine Clear Calc Drug Dose 48.7 ml/min Estimated GFR () 45.7 Estimated GFR (Non- 39.4 BUN/Creatinine Ratio 63.0 Random Glucose 94 mg/dl Calcium Level 8.0 mg/dl Total Bilirubin 4.6 mg/dl Aspartate Amino Transf (AST/SGOT) 51 U/L Alanine Aminotransferase (ALT/SGPT) 58 U/L Alkaline Phosphatase 153 U/L Total Protein 5.0 gm/dl Albumin 2.7 gm/dl Globulin 2.3 gm/dl Albumin/Globulin Ratio 1.2 Assessment and Plan ascites-s/p paracentesis 05/06 and 05/11/18--WBC on 05/06 82 so no indication of SBP. Emphasized low Na diet at home and watch labels. elevated WBC--improving slowly --workup per hospitlist--steroids would not explect to go this high, if does not improve or worsen then would recommend repeat paraacentesis with cell count to make sure has not developed SBP. cirrhosis--secondary to ETOH but patient not a candidate for transplant evaluatiion until 09/2018 hepatorenal syndrome--improving slowly--patient apprently refusing octreotide so it was stopped. hepatic encephalopathy--patient alert. Continue lactulose, ammonia on 05/08 normal. dilated bile duct--1.3 cm--cannot do MRCP secondary to claustrophobia
[2018-05-16 15:30] LABS: HEMATOCRIT 33.5 % (42-52); HEMOGLOBIN 10.9 g/dL (14.0-18.0); MEAN CORPUSCULAR HEMOGLOBIN 34.2 pg (25-34); RED CELL DISTRIBUTION WIDTH CV 18.3 % (11.5-14.5); RED CELL DISTRIBUTION WIDTH SD 70.7 fL (36.4-46.3); WHITE BLOOD COUNT 23.36 K/uL (4.8-10.8)
[2018-05-16 15:45] LABS: EOS % 0.1 %; EOS ABS # 0.03 K/uL (0-0.5); IG# 0.11 K/uL (0.00-0.02); LYMPH % 3.2 %; LYMPH ABS # 0.75 K/uL (1.2-3.4); MEAN CORPUSCULAR HGB CONC 32.5 g/dl (32-36); MEAN PLATELET VOLUME 11.4 fL (7.4-10.4); MONO % 2.2 %; MONO ABS # 0.52 K/uL (0.11-0.59); NEUT ABS # 21.95 K/uL (1.4-6.5); PLATELET COUNT 56 K/uL (130-400)
[2018-05-16 17:34] VITALS: BP 121/63; PULSE 54; TEMP 36.6; O2SAT 98
[2018-05-16 23:04] VITALS: BP 118/57; PULSE 52; TEMP 36.5; O2SAT 84; O2SAT 93
--- NOTE | 2018-05-17 07:09 | Family Medicine Progress Note ---
Progress Note Date of Service May 17, 2018. Subjective Pt evaluation today including: conversation w/ patient, physical exam, chart review, lab review, review of inpatient medication list Pain: No pain reported PO Intake: Tolerating PO intake Voiding: no voiding problems Mr. Crowley reports he feels fine today and is eager to be discharged. He denies being in any pain, specifically over his abdomen. He denies fever, chills, nausea or vomiting. He does report having regular bowel movements. Constitutional: No fever, No chills Abdomen: No pain, No nausea, No vomiting All Other Systems: Reviewed and Negative Medications Current Inpatient Medications Medications (Trade) Dose Ordered Sig/Franklyn Route Start Time Stop Time Status Last Admin Dose Admin Ondansetron HCl (Zofran Inj) 4 mg Q6H PRN IV 05/05/18 00:15 06/04/18 00:14 05/15/18 14:09 4 MG Carvedilol (Coreg Tab) 3.125 mg BID PO 05/05/18 01:00 06/04/18 00:59 05/17/18 08:42 3.125 MG Lactulose (Chronulac Syrup) 20 gm TID PRN PO 05/05/18 09:00 06/04/18 08:59 Ergocalciferol (Vitamin D Cap) 50,000 interunit Fr@0900 PO 05/07/18 09:00 06/06/18 08:59 05/14/18 07:55 50,000 INTERUNIT Pantoprazole Sodium (Protonix Tab) 40 mg BID PO 05/05/18 09:00 06/04/18 08:59 05/17/18 08:44 40 MG Salmeterol Xinafoate/ Fluticasone (Advair Diskus 500/50 Inh) 1 puff BID INH 05/05/18 09:00 06/04/18 08:59 05/17/18 08:45 1 PUFF Albuterol/ Ipratropium (Combivent Respimat Inh) 1 puffs QID PRN INH 05/05/18 02:30 06/04/18 02:29 05/17/18 08:51 1 PUFFS Amiodarone HCl (Cordarone Tab) 200 mg QAM PO 05/06/18 09:00 06/05/18 08:59 05/17/18 08:39 200 MG Midodrine (Proamatine Tab) 7.5 mg 0800,1200,1600 PO 05/08/18 16:00 06/04/18 07:59 05/17/18 12:06 7.5 MG Albuterol Sulfate (Ventolin 0.083% 2.5MG/3ML Neb) 5 mg Q6R PRN INH 05/09/18 12:45 06/08/18 12:44 Hydromorphone HCl (Dilaudid Inj) 0.5 mg Q4H PRN IV 05/09/18 15:15 05/19/18 07:59 05/16/18 04:59 0.5 MG Guaifenesin (Mucinex Contr Rel Tab) 600 mg Q12 PO 05/13/18 21:00 06/12/18 20:59 05/17/18 08:43 600 MG Ranitidine HCl (zANTac TAB) 150 mg Q24H PRN PO 05/13/18 10:30 06/12/18 10:29 05/16/18 11:40 150 MG Calcium Carbonate (Tums Chew Tab) 500 mg QID PRN PO 05/14/18 12:45 06/13/18 12:44 Prednisone (PredniSONE TAB) 10 mg DAILY PO 05/17/18 09:00 06/12/18 08:59 05/17/18 08:42 10 MG Furosemide (Lasix Tab) 10 mg QAM PO 05/18/18 09:00 06/17/18 08:59 Objective Vital Signs Date Time Temp Pulse Resp B/P (MAP) Pulse Ox O2 Delivery O2 Flow Rate FiO2 05/17/18 08:43 56 05/17/18 07:53 Nasal Cannula 3.0 05/17/18 07:17 36.5 54 20 117/65 (82) 95 Nasal Cannula 3.0 05/17/18 00:00 Nasal Cannula 3.0 05/16/18 23:04 36.5 52 16 118/57 (77) 93 Nasal Cannula 3.0 05/16/18 17:34 36.6 54 18 121/63 (82) 98 Nasal Cannula 3.0 05/16/18 16:30 Nasal Cannula 3.0 Physical Exam General Appearance: WD/WN, no apparent distress Eyes: + pertinent finding (scleral icterus) Respiratory/Chest: lungs clear, normal breath sounds, no respiratory distress, no accessory muscle use Cardiovascular: regular rate, rhythm, no murmur Abdomen: non tender, soft, + distended Extremities: non-tender, + pertinent finding (2+ edema bilaterally) Neurologic/Psychiatric: alert, normal mood/affect, oriented x 3 Laboratory Results Last 24 Hours Test 05/16/18 15:19 05/17/18 07:05 White Blood Count 23.36 K/uL 16.88 K/uL Red Blood Count 3.19 M/uL 2.94 M/uL Hemoglobin 10.9 g/dL 10.2 g/dL Hematocrit 33.5 % 30.5 % Mean Corpuscular Volume 105.0 fL 103.7 fL Mean Corpuscular Hemoglobin 34.2 pg 34.7 pg Mean Corpuscular Hemoglobin Concent 32.5 g/dl 33.4 g/dl Platelet Count 56 K/uL 46 K/uL Mean Platelet Volume 11.4 fL 11.3 fL Neutrophils (%) (Auto) 94.0 % 87.7 % Lymphocytes (%) (Auto) 3.2 % 7.2 % Monocytes (%) (Auto) 2.2 % 4.2 % Eosinophils (%) (Auto) 0.1 % 0.5 % Basophils (%) (Auto) 0.0 % 0.0 % Neutrophils # (Auto) 21.95 K/uL 14.80 K/uL Lymphocytes # (Auto) 0.75 K/uL 1.22 K/uL Monocytes # (Auto) 0.52 K/uL 0.71 K/uL Eosinophils # (Auto) 0.03 K/uL 0.09 K/uL Basophils # (Auto) 0.00 K/uL 0.00 K/uL RDW Standard Deviation 70.7 fL 69.3 fL RDW Coefficient of Variation 18.3 % 18.3 % Immature Granulocyte % (Auto) 0.5 % 0.4 % Immature Granulocyte # (Auto) 0.11 K/uL 0.06 K/uL Prothrombin Time 17.5 SECONDS Prothromb Time International Ratio 1.7 Sodium Level 139 mmol/L Potassium Level 5.0 mmol/L Chloride Level 103 mmol/L Carbon Dioxide Level 31 mmol/L Anion Gap 5.0 mmol/L Blood Urea Nitrogen 101 mg/dl Creatinine 1.61 mg/dl Est Creatinine Clear Calc Drug Dose 53.9 ml/min Estimated GFR () 51.6 Estimated GFR (Non- 44.5 BUN/Creatinine Ratio 62.4 Random Glucose 86 mg/dl Calcium Level 7.8 mg/dl Total Bilirubin 5.2 mg/dl Aspartate Amino Transf (AST/SGOT) 57 U/L Alanine Aminotransferase (ALT/SGPT) 61 U/L Alkaline Phosphatase 161 U/L Total Protein 5.0 gm/dl Albumin 2.8 gm/dl Globulin 2.2 gm/dl Albumin/Globulin Ratio 1.3 Assessment and Plan Mr. Crowley is a 63-year-old male admitted on 04 May 2018 for worsening fatigue and cough over the past few weeks. PMH: Decompensated cirrhosis, CHF, COPD, Atrial fibrillation, HLD, HTN, CKD stage 4, electrolyte issues (sodium and potassium), pneumonia, upper GI bleed Leukocytosis secondary to steroid treatment vs SBP - leukocytosis does not relate to steroid exposure given the increasing WCC counts while tapering down steroids - Patient is not exhibiting abdominal tenderness on exam, remains afebrile and previous paracentesis on May 06 and May 11 w/o signs of infection - repeat CBC tomorrow -> if WCC continues to downtrend, stable for d/c - will discuss w/GI whether patient would benefit from abx prophylaxis for SBP Healthcare acquired pneumonia: - Treated with Vanc/Zosyn based on admission Xray - resolved COPD exacerbation: -Baseline 2 L nasal cannula at night only at home, on 3 L currently -On his home Advair. -Tapering steroids - currently on 10mg of prednisone. d/c on discharge -Patient has declined DuoNeb's, preferring as needed Combivent. Some acute episodes of shortness of breath as inpatient, responding well to albuterol nebs. 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 Proctor at [facility]. - Patient's meld score is 26. [facility] is pending six months of sobriety ( September) before initiating liver transplant workup. - Patient has elected to go home on hospice as of 05/14/18. CM set up with [facility], who can perform palliative paracentesis. - Esophageal varices, portal hypertension, PUD: Is on Coreg. INR has remained stable around 1.6 - 1.7. Is off anticoagulation due to risk of recurrent GI bleed. DOMINIQUE with history of stage IV CKD: - Admit Cr 2.6, improving, 1.61 today - Baseline appears to be roughly 1.5 (January 2018). - FeNa suggests prerenal cause, but also concerns with rehydration and hepatorenal syndrome. - Nephrology consulted, see related notes. -> continue midodrine for BP control -> hold coreg on d/c - will start low dose (10mg daily PO Lasix) for diuresis Mild confusion and elevated ammonia level: - Likely hepatic encephalopathy - resolved Thrombocytopenia: - Platelets stable at 46 - No evidence of acute bleeding. Monitoring. Hyperkalemia: - Admit K 5.6, currently with a K of 5 Possible moderate malnutrition - Recommend low-fat, low-salt diet. Nutrition consulted. Paroxysmal A. fib: - On Coreg and amiodarone. Hyperlipidemia: - Not on statin due to liver disease. Code status: DO NOT RESUSCITATE DVT prophylaxis: Holding chemical anticoagulation due to recent GI bleed and holding SCD's due to lower extremity edema. Dispo: Anticipate d/c tomorrow provided downtrending [facility] Resident Physician Supervision Note: I was present with the resident physician during the history and exam. I discussed the case with the resident and agree with the findings and plan as documented in the note. Any exceptions or clarifications are listed here: Patient desires discharge; the current plan is to go home with hospice. I discussed with the patient that his enrollment in hospice does not preclude him from being placed on a liver transplant list -patients can remain in hospice if there are symptoms warrant up into the date of surgery. The patient is realistic, however, in that his current condition may not allow him to make it to that point in time. Agree with addition of low-dose loop diuretic. His hyperkalemia precludes addition of Aldactone. His leukocytosis could be secondary to steroids, although the greater fear would be SBP. Clinically he looks well today; will trend WBC and discussed with gastroenterology. Documented By: Terrance Andrade Resident Tracking Resident Involvement: Resident Care Provided Care Provided: Adult [facility]
[2018-05-17 07:17] VITALS: BP 117/65; PULSE 54; TEMP 36.5; O2SAT 95
[2018-05-17 07:17] LABS: HEMATOCRIT 30.5 % (42-52); HEMOGLOBIN 10.2 g/dL (14.0-18.0); MEAN CELL VOLUME 103.7 fL (80-100); MEAN CORPUSCULAR HEMOGLOBIN 34.7 pg (25-34); MEAN CORPUSCULAR HGB CONC 33.4 g/dl (32-36); RED CELL DISTRIBUTION WIDTH CV 18.3 % (11.5-14.5); RED CELL DISTRIBUTION WIDTH SD 69.3 fL (36.4-46.3); WHITE BLOOD COUNT 16.88 K/uL (4.8-10.8)
[2018-05-17 07:25] LABS: MEAN PLATELET VOLUME 11.3 fL (7.4-10.4); PLATELET COUNT 46 K/uL (130-400)
[2018-05-17 07:26] LABS: INR 1.7 (0.9-1.1)
[2018-05-17 07:38] LABS: EOS % 0.5 %; EOS ABS # 0.09 K/uL (0-0.5); IG# 0.06 K/uL (0.00-0.02); LYMPH % 7.2 %; LYMPH ABS # 1.22 K/uL (1.2-3.4); MONO % 4.2 %; MONO ABS # 0.71 K/uL (0.11-0.59); NEUT % 87.7 %
[2018-05-17 08:00] LABS: ALBUMIN 2.8 gm/dl (3.4-5.0); CALCIUM 7.8 mg/dl (8.5-10.1); CREATININE 1.61 mg/dl (0.60-1.40)
[2018-05-17] MEDS: AMIODARONE 200 MG TAB PO SCH (08:39)
[2018-05-17] MEDS: CARVEDILOL 3.125 MG TAB PO SCH ×2 (08:42→20:47)
[2018-05-17 08:43] VITALS: PULSE 56
[2018-05-17] MEDS: GUAIFENESIN 600 MG TABCR PO SCH ×2 (08:43→20:46)
[2018-05-17] MEDS: PANTOprazole SOD 40 MG TAB PO SCH ×2 (08:44→20:46)
[2018-05-17] MEDS: MIDODRINE 2.5 MG TAB PO SCH ×3 (08:45→16:13)
[2018-05-17] MEDS: FLUTICASONE/SALMETEROL (ADVAIR) 500/50 INH 14 PUFF INH SCH ×2 (08:45→20:46)
[2018-05-17] MEDS: IPRATROPIUM BROMIDE/ALBUTEROL respimat INH INH PRN ×2 (08:51→15:18)
--- NOTE | 2018-05-17 10:06 | Nephrology Progress Note ---
Nephrology Progress Note Date of Service May 17, 2018. Chief Complaint DOMINIQUE Subjective No acute events overnight. No significant change in abdominal ascites or LE edema. Breathing comfortably. Manuel remains weak. No fevers or chills. Appetite fair. Review of Systems A complete review of systems was performed. Pertinent positives are noted above. All other systems are negative. Vital Signs Last 8 Hrs Date Time Temp Pulse Resp B/P (MAP) Pulse Ox O2 Delivery O2 Flow Rate FiO2 05/17/18 08:43 56 05/17/18 07:53 Nasal Cannula 3.0 05/17/18 07:17 36.5 54 20 117/65 (82) 95 Nasal Cannula 3.0 Last Recorded Weight Weight (Kilograms): 96.700 Physical Exam General Appearance: + thin, + pertinent finding (chronically ill appearing) Head: normocephalic, atraumatic, + pertinent finding (temporal wasting) Eyes: normal inspection, + pertinent finding (mildly icteric sclera) Respiratory/Chest: no respiratory distress, no accessory muscle use, + decreased breath sounds Cardiovascular: regular rate, rhythm Abdomen/GI: non tender, + distended Extremities/Musculoskelatal: no calf tenderness, + pedal edema Neurologic/Psych: alert, + depressed affect Family History Cancer Heart disease Hypertension Negative for CKD / ESRD Social History Smoking Status: Current every day smoker Drug Use: none Marital Status: Housing Status: lives with significant other 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 H/o heavy alcohol use (last drink 03/22). Laboratory Results Past 24 Hours 05/16/18 15:19 Red Blood Count 3.19, Mean Corpuscular Volume 105.0, Mean Corpuscular Hemoglobin 34.2, Mean Corpuscular Hemoglobin Concent 32.5, Mean Platelet Volume 11.4, Neutrophils (%) (Auto) 94.0, Lymphocytes (%) (Auto) 3.2, Monocytes (%) ( Auto) 2.2, Eosinophils (%) (Auto) 0.1, Basophils (%) (Auto) 0.0, Neutrophils # ( Auto) 21.95, Lymphocytes # (Auto) 0.75, Monocytes # (Auto) 0.52, Eosinophils # ( Auto) 0.03, Basophils # (Auto) 0.00 05/17/18 07:05 Red Blood Count 2.94, Mean Corpuscular Volume 103.7, Mean Corpuscular Hemoglobin 34.7, Mean Corpuscular Hemoglobin Concent 33.4, Mean Platelet Volume 11.3, Neutrophils (%) (Auto) 87.7, Lymphocytes (%) (Auto) 7.2, Monocytes (%) ( Auto) 4.2, Eosinophils (%) (Auto) 0.5, Basophils (%) (Auto) 0.0, Neutrophils # ( Auto) 14.80, Lymphocytes # (Auto) 1.22, Monocytes # (Auto) 0.71, Eosinophils # ( Auto) 0.09, Basophils # (Auto) 0.00 05/17/18 07:05 Test 05/16/18 15:19 05/17/18 07:05 White Blood Count 23.36 K/uL (4.8-10.8) 16.88 K/uL (4.8-10.8) Red Blood Count 3.19 M/uL (4.7-6.1) 2.94 M/uL (4.7-6.1) Hemoglobin 10.9 g/dL (14.0-18.0) 10.2 g/dL (14.0-18.0) Hematocrit 33.5 % (42-52) 30.5 % (42-52) Mean Corpuscular Volume 105.0 fL (80-100) 103.7 fL (80-100) Mean Corpuscular Hemoglobin 34.2 pg (25-34) 34.7 pg (25-34) Mean Corpuscular Hemoglobin Concent 32.5 g/dl (32-36) 33.4 g/dl (32-36) Platelet Count 56 K/uL (130-400) 46 K/uL (130-400) Mean Platelet Volume 11.4 fL (7.4-10.4) 11.3 fL (7.4-10.4) Neutrophils (%) (Auto) 94.0 % 87.7 % Lymphocytes (%) (Auto) 3.2 % 7.2 % Monocytes (%) (Auto) 2.2 % 4.2 % Eosinophils (%) (Auto) 0.1 % 0.5 % Basophils (%) (Auto) 0.0 % 0.0 % Neutrophils # (Auto) 21.95 K/uL (1.4-6.5) 14.80 K/uL (1.4-6.5) Lymphocytes # (Auto) 0.75 K/uL (1.2-3.4) 1.22 K/uL (1.2-3.4) Monocytes # (Auto) 0.52 K/uL (0.11-0.59) 0.71 K/uL (0.11-0.59) Eosinophils # (Auto) 0.03 K/uL (0-0.5) 0.09 K/uL (0-0.5) Basophils # (Auto) 0.00 K/uL (0-0.2) 0.00 K/uL (0-0.2) RDW Standard Deviation 70.7 fL (36.4-46.3) 69.3 fL (36.4-46.3) RDW Coefficient of Variation 18.3 % (11.5-14.5) 18.3 % (11.5-14.5) Immature Granulocyte % (Auto) 0.5 % 0.4 % Immature Granulocyte # (Auto) 0.11 K/uL (0.00-0.02) 0.06 K/uL (0.00-0.02) Prothrombin Time 17.5 SECONDS (9.0-12.0) Prothromb Time International Ratio 1.7 (0.9-1.1) Anion Gap 5.0 mmol/L (3-11) Est Creatinine Clear Calc Drug Dose 53.9 ml/min Estimated GFR () 51.6 Estimated GFR (Non- 44.5 BUN/Creatinine Ratio 62.4 (10-20) Calcium Level 7.8 mg/dl (8.5-10.1) Total Bilirubin 5.2 mg/dl (0.2-1) Aspartate Amino Transf (AST/SGOT) 57 U/L (15-37) Alanine Aminotransferase (ALT/SGPT) 61 U/L (12-78) Alkaline Phosphatase 161 U/L (45-117) Total Protein 5.0 gm/dl (6.4-8.2) Albumin 2.8 gm/dl (3.4-5.0) Globulin 2.2 gm/dl (2.5-4.0) Albumin/Globulin Ratio 1.3 (0.9-2) Allergies Coded Allergies: No Known Allergies (Unverified , 05/06/18) Medications Current Inpatient Medications Medications (Trade) Dose Ordered Sig/Franklyn Route Start Time Stop Time Status Last Admin Dose Admin Ondansetron HCl (Zofran Inj) 4 mg Q6H PRN IV 05/05/18 00:15 06/04/18 00:14 05/15/18 14:09 4 MG Carvedilol (Coreg Tab) 3.125 mg BID PO 05/05/18 01:00 06/04/18 00:59 05/17/18 08:42 3.125 MG Lactulose (Chronulac Syrup) 20 gm TID PRN PO 05/05/18 09:00 06/04/18 08:59 Ergocalciferol (Vitamin D Cap) 50,000 interunit Fr@0900 PO 05/07/18 09:00 06/06/18 08:59 05/14/18 07:55 50,000 INTERUNIT Pantoprazole Sodium (Protonix Tab) 40 mg BID PO 05/05/18 09:00 06/04/18 08:59 05/17/18 08:44 40 MG Salmeterol Xinafoate/ Fluticasone (Advair Diskus 500/50 Inh) 1 puff BID INH 05/05/18 09:00 06/04/18 08:59 05/17/18 08:45 1 PUFF Albuterol/ Ipratropium (Combivent Respimat Inh) 1 puffs QID PRN INH 05/05/18 02:30 06/04/18 02:29 05/17/18 08:51 1 PUFFS Amiodarone HCl (Cordarone Tab) 200 mg QAM PO 05/06/18 09:00 06/05/18 08:59 05/17/18 08:39 200 MG Midodrine (Proamatine Tab) 7.5 mg 0800,1200,1600 PO 05/08/18 16:00 06/04/18 07:59 05/17/18 08:45 7.5 MG Albuterol Sulfate (Ventolin 0.083% 2.5MG/3ML Neb) 5 mg Q6R PRN INH 05/09/18 12:45 06/08/18 12:44 Hydromorphone HCl (Dilaudid Inj) 0.5 mg Q4H PRN IV 05/09/18 15:15 05/19/18 07:59 05/16/18 04:59 0.5 MG Guaifenesin (Mucinex Contr Rel Tab) 600 mg Q12 PO 05/13/18 21:00 06/12/18 20:59 05/17/18 08:43 600 MG Ranitidine HCl (zANTac TAB) 150 mg Q24H PRN PO 05/13/18 10:30 06/12/18 10:29 05/16/18 11:40 150 MG Calcium Carbonate (Tums Chew Tab) 500 mg QID PRN PO 05/14/18 12:45 06/13/18 12:44 Prednisone (PredniSONE TAB) 10 mg DAILY PO 05/17/18 09:00 06/12/18 08:59 05/17/18 08:42 10 MG Impression (1) Hepatorenal syndrome (2) DOMINIQUE (acute kidney injury) (3) Chronic kidney disease (4) Cirrhosis (5) Hyponatremia Recommendations Mr. Crowley developed DOMINIQUE consistent with HRS 1. Thankfully renal function has stabilized/improved. Metabolic profile otherwise acceptable with persistent azotemia. Urine output remains nonoliguric. Octreotide has been discontinued. BP is acceptable on current dose of midodrine. I would encourage continues use of midodrine and holding carvedilol at discharge. Importance of appropriate dietary protein intake reviewed. Medications are appropriate for kidney function. Diuretics held and Manuel does not feel compelled to restart at this time. I would consider a low dose loop diuretic to encourage some natriuresis if fluid retention notable. Therapeutic paracentesis planned. Will monitor off diuretics for now. Avoid K sparing due to hyperkalemia.
--- NOTE | 2018-05-17 11:27 | Palliative Care Progress Note ---
Palliative Care Progress Note Date of Service May 17, 2018. Subjective Pt evaluation today including: conversation w/ patient, physical exam, chart review Patient is feeling a little better today, anxious to go home. More talkative and not as flat today. Patient admits to being nervous about going home, "I just don't know what I'm going to be able to do as far as physical activity." We discussed hospice, code status and POLST form. Patient confirmed his goal is to go home with hospice and that he is DNR/DNI. He would prefer to wait for his to be present to completed POLST. He will have call me when she arrives today or tomorrow. Patient has no pain, SOB, N/V Review of Systems Constitutional: + weakness, + fatigue ENT: No trouble swallowing Respiratory: + shortness of breath (only when abdomen is distended) Cardiac: + edema, No chest pain Abdomen: No pain, No nausea, No vomiting Male : No problem reported Psychiatric: + anxiety (mild anxiety related to going home) Objective Vital Signs Date Time Temp Pulse Resp B/P (MAP) Pulse Ox O2 Delivery O2 Flow Rate FiO2 05/17/18 08:43 56 05/17/18 07:53 Nasal Cannula 3.0 05/17/18 07:17 36.5 54 20 117/65 (82) 95 Nasal Cannula 3.0 05/17/18 00:00 Nasal Cannula 3.0 05/16/18 23:04 36.5 52 16 118/57 (77) 93 Nasal Cannula 3.0 05/16/18 17:34 36.6 54 18 121/63 (82) 98 Nasal Cannula 3.0 05/16/18 16:30 Nasal Cannula 3.0 Physical Exam General Appearance: no apparent distress, + pertinent finding (deconditioned, chronically ill appearing) ENT: hearing grossly normal Neck: supple, no JVD Respiratory/Chest: no respiratory distress, no accessory muscle use, + decreased breath sounds (bilateral bases) Cardiovascular: regular rate, rhythm, + pertinent finding (+4 pitting edema to BL feet, +3 pitting edema to BL ankles) Abdomen: normal bowel sounds, non tender, + distended, + pertinent finding ( softer than last week, still somewhat firm) Neurologic/Psychiatric: alert, normal mood/affect, oriented x 3 Skin: + pertinent finding (brown/dark discoloration to BLE) Laboratory Results Last 24 Hours Test 05/16/18 15:19 05/17/18 07:05 White Blood Count 23.36 K/uL 16.88 K/uL Red Blood Count 3.19 M/uL 2.94 M/uL Hemoglobin 10.9 g/dL 10.2 g/dL Hematocrit 33.5 % 30.5 % Mean Corpuscular Volume 105.0 fL 103.7 fL Mean Corpuscular Hemoglobin 34.2 pg 34.7 pg Mean Corpuscular Hemoglobin Concent 32.5 g/dl 33.4 g/dl Platelet Count 56 K/uL 46 K/uL Mean Platelet Volume 11.4 fL 11.3 fL Neutrophils (%) (Auto) 94.0 % 87.7 % Lymphocytes (%) (Auto) 3.2 % 7.2 % Monocytes (%) (Auto) 2.2 % 4.2 % Eosinophils (%) (Auto) 0.1 % 0.5 % Basophils (%) (Auto) 0.0 % 0.0 % Neutrophils # (Auto) 21.95 K/uL 14.80 K/uL Lymphocytes # (Auto) 0.75 K/uL 1.22 K/uL Monocytes # (Auto) 0.52 K/uL 0.71 K/uL Eosinophils # (Auto) 0.03 K/uL 0.09 K/uL Basophils # (Auto) 0.00 K/uL 0.00 K/uL RDW Standard Deviation 70.7 fL 69.3 fL RDW Coefficient of Variation 18.3 % 18.3 % Immature Granulocyte % (Auto) 0.5 % 0.4 % Immature Granulocyte # (Auto) 0.11 K/uL 0.06 K/uL Prothrombin Time 17.5 SECONDS Prothromb Time International Ratio 1.7 Sodium Level 139 mmol/L Potassium Level 5.0 mmol/L Chloride Level 103 mmol/L Carbon Dioxide Level 31 mmol/L Anion Gap 5.0 mmol/L Blood Urea Nitrogen 101 mg/dl Creatinine 1.61 mg/dl Est Creatinine Clear Calc Drug Dose 53.9 ml/min Estimated GFR () 51.6 Estimated GFR (Non- 44.5 BUN/Creatinine Ratio 62.4 Random Glucose 86 mg/dl Calcium Level 7.8 mg/dl Total Bilirubin 5.2 mg/dl Aspartate Amino Transf (AST/SGOT) 57 U/L Alanine Aminotransferase (ALT/SGPT) 61 U/L Alkaline Phosphatase 161 U/L Total Protein 5.0 gm/dl Albumin 2.8 gm/dl Globulin 2.2 gm/dl Albumin/Globulin Ratio 1.3 Assessment and Plan Problem list: Weakness Pneumonia Cirrhosis with ascites, end-stage Goals of care Palliative care recs: -Patient confirmed today that he is DNR/DNI. His is in agreement with this. -After discussion with patient and , plan is for home with hospice when medically stable. -Should utilize hospice agency who will allow for palliative paracenteses. Ascites not reaccumulating fast enough to where a abdominal pleur-x is warranted , especially with risk of complication of these catheters. Plan is to be reactive if ascites reaccumulates causing discomfort. -manager talent is setting up hospice. -POLST form would be helpful, waiting for to be available to complete it at patient's request. Spoke with about this, she will call me if she comes in. Total time spent 35 minutes with >50% of time spent at bedside with patient and on phone with discussing goals of care, code status, and plan of care. Palliative Performance Scale: 50 % Discharge planning: home with Hospice
[2018-05-17] MEDS ORDERED: FUROSEMIDE 20 MG TAB PO ONE (13:20)
[2018-05-17 15:23] VITALS: BP 115/62; PULSE 51; TEMP 36.5; O2SAT 95
--- NOTE | 2018-05-17 16:05 | PROGRESS NOTE ---
DATE: 05/17/2018 SUBJECTIVE: The patient was seen in the room. We discussed his prognosis and plan. The plan is as outlined by the palliative care nurse to have him go home with hospice and potentially do a paracentesis for palliation if needed. PHYSICAL EXAMINATION: VITAL SIGNS: Show blood pressure 115/62, pulse 51. LABORATORY: Show an improvement in his renal function. His creatinine is 1.61, BUN 101. IMPRESSION AND PLAN: The patient has got liver failure with hepatorenal syndrome. Plan is for him to go home on hospice with palliative paracenteses as an outpatient if needed. I discussed this with the patient and he is in agreement with the plan. His will be assisting in filling out the papers in order to get this accomplished in the next day or so with the patient. We will sign off the patient at this time unless there is further input needed. Please contact us.
[2018-05-17 20:44] VITALS: BP 115/62; PULSE 54
[2018-05-17 23:07] VITALS: BP 144/70; PULSE 56; TEMP 36.5; O2SAT 94
[2018-05-18 06:38] LABS: HEMATOCRIT 31.4 % (42-52); HEMOGLOBIN 10.1 g/dL (14.0-18.0); MEAN CELL VOLUME 104.7 fL (80-100); MEAN CORPUSCULAR HEMOGLOBIN 33.7 pg (25-34); MEAN CORPUSCULAR HGB CONC 32.2 g/dl (32-36); RED CELL DISTRIBUTION WIDTH CV 18.2 % (11.5-14.5); RED CELL DISTRIBUTION WIDTH SD 69.4 fL (36.4-46.3); WHITE BLOOD COUNT 21.57 K/uL (4.8-10.8)
[2018-05-18 06:40] LABS: MEAN PLATELET VOLUME 11.4 fL (7.4-10.4); PLATELET COUNT 57 K/uL (130-400)
[2018-05-18 07:13] LABS: ALBUMIN 2.7 gm/dl (3.4-5.0); CALCIUM 7.8 mg/dl (8.5-10.1); CREATININE 1.54 mg/dl (0.60-1.40); POTASSIUM 4.9 mmol/L (3.5-5.1)
[2018-05-18 07:17] LABS: TOTAL PROTEIN 5.1 gm/dl (6.4-8.2)
[2018-05-18 07:25] VITALS: BP 123/61; PULSE 56; TEMP 36.4; O2SAT 93
[2018-05-18 07:26] LABS: BASO ABS # 0.01 K/uL (0-0.2); EOS % 0.8 %; EOS ABS # 0.18 K/uL (0-0.5); IG# 0.11 K/uL (0.00-0.02); LYMPH % 9.3 %; MONO % 3.4 %; MONO ABS # 0.74 K/uL (0.11-0.59); NEUT ABS # 18.53 K/uL (1.4-6.5)
[2018-05-18] MEDS: GUAIFENESIN 600 MG TABCR PO SCH (07:46)
[2018-05-18] MEDS: CARVEDILOL 3.125 MG TAB PO SCH (07:46)
[2018-05-18] MEDS: PANTOprazole SOD 40 MG TAB PO SCH (07:46)
[2018-05-18] MEDS: FLUTICASONE/SALMETEROL (ADVAIR) 500/50 INH 14 PUFF INH SCH (07:46)
[2018-05-18] MEDS: MIDODRINE 2.5 MG TAB PO SCH ×2 (07:47→11:47)
[2018-05-18] MEDS: AMIODARONE 200 MG TAB PO SCH (07:47)
[2018-05-18] MEDS ORDERED: FUROSEMIDE 20 MG TAB PO SCH (09:00)
--- NOTE | 2018-05-18 09:21 | Nephrology Progress Note ---
Nephrology Progress Note Date of Service May 18, 2018. Chief Complaint DOMINIQUE Subjective No acute events overnight. Reports back pain this morning. Unable to rest overnight. Frustrated regarding delayed discharge. No fever or chills. Denies significant change in ascites. Review of Systems A complete review of systems was performed. Pertinent positives are noted above. All other systems are negative. Vital Signs Last 8 Hrs Date Time Temp Pulse Resp B/P (MAP) Pulse Ox O2 Delivery O2 Flow Rate FiO2 05/18/18 08:00 Nasal Cannula 3.0 05/18/18 07:25 36.4 56 18 123/61 (81) 93 Nasal Cannula 3.0 Last Recorded Weight Weight (Kilograms): 96.700 Physical Exam General Appearance: no apparent distress, + pertinent finding (chronically ill appearing) Head: normocephalic, atraumatic Eyes: normal inspection, + pertinent finding (mildly icteric) ENT: normal ENT inspection, pharynx normal Neck: supple, no JVD Respiratory/Chest: no respiratory distress, no accessory muscle use, + decreased breath sounds Cardiovascular: regular rate, rhythm Abdomen/GI: non tender, + distended Extremities/Musculoskelatal: normal inspection, + pedal edema Neurologic/Psych: alert, normal mood/affect Family History Cancer Heart disease Hypertension Negative for CKD / ESRD Social History Smoking Status: Current every day smoker Drug Use: none Marital Status: Housing Status: lives with significant other 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 H/o heavy alcohol use (last drink 03/22). Laboratory Results Past 24 Hours 05/18/18 05:56 Red Blood Count 3.00, Mean Corpuscular Volume 104.7, Mean Corpuscular Hemoglobin 33.7, Mean Corpuscular Hemoglobin Concent 32.2, Mean Platelet Volume 11.4, Neutrophils (%) (Auto) 86.0, Lymphocytes (%) (Auto) 9.3, Monocytes (%) ( Auto) 3.4, Eosinophils (%) (Auto) 0.8, Basophils (%) (Auto) 0.0, Neutrophils # ( Auto) 18.53, Lymphocytes # (Auto) 2.00, Monocytes # (Auto) 0.74, Eosinophils # ( Auto) 0.18, Basophils # (Auto) 0.01 05/18/18 05:56 Test 05/18/18 05:56 White Blood Count 21.57 K/uL (4.8-10.8) Red Blood Count 3.00 M/uL (4.7-6.1) Hemoglobin 10.1 g/dL (14.0-18.0) Hematocrit 31.4 % (42-52) Mean Corpuscular Volume 104.7 fL (80-100) Mean Corpuscular Hemoglobin 33.7 pg (25-34) Mean Corpuscular Hemoglobin Concent 32.2 g/dl (32-36) Platelet Count 57 K/uL (130-400) Mean Platelet Volume 11.4 fL (7.4-10.4) Neutrophils (%) (Auto) 86.0 % Lymphocytes (%) (Auto) 9.3 % Monocytes (%) (Auto) 3.4 % Eosinophils (%) (Auto) 0.8 % Basophils (%) (Auto) 0.0 % Neutrophils # (Auto) 18.53 K/uL (1.4-6.5) Lymphocytes # (Auto) 2.00 K/uL (1.2-3.4) Monocytes # (Auto) 0.74 K/uL (0.11-0.59) Eosinophils # (Auto) 0.18 K/uL (0-0.5) Basophils # (Auto) 0.01 K/uL (0-0.2) RDW Standard Deviation 69.4 fL (36.4-46.3) RDW Coefficient of Variation 18.2 % (11.5-14.5) Immature Granulocyte % (Auto) 0.5 % Immature Granulocyte # (Auto) 0.11 K/uL (0.00-0.02) Anion Gap 6.0 mmol/L (3-11) Est Creatinine Clear Calc Drug Dose 56.3 ml/min Estimated GFR () 54.5 Estimated GFR (Non- 47.0 BUN/Creatinine Ratio 59.7 (10-20) Calcium Level 7.8 mg/dl (8.5-10.1) Total Bilirubin 5.7 mg/dl (0.2-1) Aspartate Amino Transf (AST/SGOT) 60 U/L (15-37) Alanine Aminotransferase (ALT/SGPT) 65 U/L (12-78) Alkaline Phosphatase 189 U/L (45-117) Total Protein 5.1 gm/dl (6.4-8.2) Albumin 2.7 gm/dl (3.4-5.0) Globulin 2.3 gm/dl (2.5-4.0) Albumin/Globulin Ratio 1.1 (0.9-2) Allergies Coded Allergies: No Known Allergies (Unverified , 05/06/18) Medications Current Inpatient Medications Medications (Trade) Dose Ordered Sig/[place] Route Start Time Stop Time Status Last Admin Dose Admin Ondansetron HCl (Zofran Inj) 4 mg Q6H PRN IV 05/05/18 00:15 06/04/18 00:14 05/15/18 14:09 4 MG Carvedilol (Coreg Tab) 3.125 mg BID PO 05/05/18 01:00 06/04/18 00:59 05/18/18 07:46 3.125 MG Lactulose (Chronulac Syrup) 20 gm TID PRN PO 05/05/18 09:00 06/04/18 08:59 Ergocalciferol (Vitamin D Cap) 50,000 interunit Fr@0900 PO 05/07/18 09:00 06/06/18 08:59 05/14/18 07:55 50,000 INTERUNIT Pantoprazole Sodium (Protonix Tab) 40 mg BID PO 05/05/18 09:00 06/04/18 08:59 05/18/18 07:46 40 MG Salmeterol Xinafoate/ Fluticasone (Advair Diskus 500/50 Inh) 1 puff BID INH 05/05/18 09:00 06/04/18 08:59 05/18/18 07:46 1 PUFF Albuterol/ Ipratropium (Combivent Respimat Inh) 1 puffs QID PRN INH 05/05/18 02:30 06/04/18 02:29 05/17/18 15:18 1 PUFFS Amiodarone HCl (Cordarone Tab) 200 mg QAM PO 05/06/18 09:00 06/05/18 08:59 05/18/18 07:47 200 MG Midodrine (Proamatine Tab) 7.5 mg 0800,1200,1600 PO 05/08/18 16:00 06/04/18 07:59 05/18/18 07:47 7.5 MG Albuterol Sulfate (Ventolin 0.083% 2.5MG/3ML Neb) 5 mg Q6R PRN INH 05/09/18 12:45 06/08/18 12:44 Hydromorphone HCl (Dilaudid Inj) 0.5 mg Q4H PRN IV 05/09/18 15:15 05/19/18 07:59 05/16/18 04:59 0.5 MG Guaifenesin (Mucinex Contr Rel Tab) 600 mg Q12 PO 05/13/18 21:00 06/12/18 20:59 05/18/18 07:46 600 MG Ranitidine HCl (zANTac TAB) 150 mg Q24H PRN PO 05/13/18 10:30 06/12/18 10:29 05/16/18 11:40 150 MG Calcium Carbonate (Tums Chew Tab) 500 mg QID PRN PO 05/14/18 12:45 06/13/18 12:44 Prednisone (PredniSONE TAB) 10 mg DAILY PO 05/17/18 09:00 06/12/18 08:59 05/18/18 07:46 10 MG Furosemide (Lasix Tab) 10 mg QAM PO 05/18/18 09:00 06/17/18 08:59 05/18/18 07:46 10 MG Impression (1) Hepatorenal syndrome (2) DOMINIQUE (acute kidney injury) (3) Chronic kidney disease (4) Cirrhosis (5) Hyponatremia Recommendations Mr. Crowley developed non oliguric DOMINIQUE consistent with HRS 1. Thankfully renal function has stabilized/improved. Metabolic profile otherwise acceptable with persistent azotemia. BP is acceptable on current dose of midodrine. Patient is tolerating low dose furosemide which may be increased as needed to encourage slightly negative fluid balance. Medications are appropriate for kidney function.
[2018-05-18] MEDS ORDERED: LSX20 PO (10:15)
[2018-05-18] MEDS ORDERED: PRMT25 PO (10:15)
[2018-05-18] MEDS ORDERED: CRG3125 PO (10:15)
[2018-05-18] MEDS ORDERED: CRD200 PO (10:15)
--- NOTE | 2018-05-18 10:24 | Discharge Instructions ---
Discharge Instructions Date of Service May 18, 2018. Admission Reason for Admission: Weakness Discharge Discharge Diagnosis / Problem: Liver Cirrhosis and Pneumonia Discharge Goals Goal(s): Decrease discomfort, Improve function, Increase independence Activity Recommendations Activity Limitations: resume your previous activity . Instructions / Follow-Up Instructions / Follow-Up You were seen at [facility] for feeling weak, fatigued and having a cough. You were initially treated with antibiotics for a pneumonia (infection in your lungs). This resolved and we have stopped the antibiotics. We also treated you with steroids to help with your breathing. The steroids may have caused an elevated white cell count (part of your blood that responds to infection and increases when your body is fighting an infection), however we do recommend that you have this rechecked when you follow up with your primary care doctor, to ensure that it is resolving. You were also seen by a GI and kidney doctor, who were working on optimizing medical management for your liver and kidney disease. You had 2 paracenteses ( procedure where they drain fluid out of your abdomen) and in both cases, this fluid did not show any signs of an infection. Some of your medications were altered, includin) midodrine -> to help your blood pressure. Dose was increased to 7.5mg three times a day 2) Coreg -> to prevent worsening of the dilated veins in your esophagus. Dose decreased to once a day instead of twice a day 3) Lasix -> we started you on Lasix (water pill) to help with the fluid accumulation in your abdomen and legs. You can take 10mg (1/2 a tablet) once a day. This can be increased by your primary care doctor if you feel your swelling is worsening. 4) Amiodarone -> Started for your irregular heart rate. Take one tablet every morning. If you have fever, chills, nausea/vomiting, or worsening belly pain, please seek medical attention. Current Hospital Diet Patient's current hospital diet: Low Fat Diet, Low Sodium Diet (2gm Na), Low Potassium Diet (2g K) Discharge Diet Recommended Diet: Low Sodium Diet (2gm Na), Low Fat Diet, Low Potassium Diet ( 2g K) Pending Studies Studies pending at discharge: no Medical Emergencies . Who to Call and When: Medical Emergencies: If at any time you feel your situation is an emergency, please call 911 immediately. . Non-Emergent Contact Non-Emergency issues call your: Primary Care Provider . . "Provider Documentation" section prepared by José Miguel Dc. .
--- NOTE | 2018-05-18 11:11 | Palliative Care Progress Note ---
Palliative Care Progress Note Date of Service May 18, 2018. Subjective Pt evaluation today including: conversation w/ patient, conversation w/ family , physical exam, chart review, conversation w/ c consultant (Dr. Dc and Dr. Andrade) Patient sitting in chair feeling okay today. Patient stated, "I can't stay here in this bed one more night." He is ready to go home today. He is aware his WBC are elevated, he states he still wants to go home and would be okay with continuing an abx at home. Review of Systems Constitutional: + weakness ENT: No trouble swallowing Respiratory: + dyspnea on exertion, No cough, No wheezing, No shortness of breath Cardiac: + edema, No chest pain Abdomen: No pain, No nausea, No vomiting Male : No problem reported Psychiatric: No anxiety Objective Vital Signs Date Time Temp Pulse Resp B/P (MAP) Pulse Ox O2 Delivery O2 Flow Rate FiO2 05/18/18 08:00 Nasal Cannula 3.0 05/18/18 07:25 36.4 56 18 123/61 (81) 93 Nasal Cannula 3.0 05/18/18 00:00 Nasal Cannula 3.0 05/17/18 23:07 36.5 56 18 144/70 (94) 94 Nasal Cannula 3.0 05/17/18 20:44 54 115/62 (79) 05/17/18 18:04 Nasal Cannula 3.0 05/17/18 15:23 36.5 51 20 115/62 (79) 95 Nasal Cannula 2.0 Physical Exam General Appearance: no apparent distress, + pertinent finding (chronically ill appearing) ENT: hearing grossly normal Neck: supple, no JVD Respiratory/Chest: no respiratory distress, no accessory muscle use, + decreased breath sounds, + crackles (few, fine in RLL) Cardiovascular: regular rate, rhythm, + pertinent finding (+3-4 pitting edema to BL ankles and feet) Abdomen: normal bowel sounds, non tender, soft, + distended Neurologic/Psychiatric: alert, normal mood/affect, oriented x 3 Laboratory Results Last 24 Hours Test 05/18/18 05:56 White Blood Count 21.57 K/uL Red Blood Count 3.00 M/uL Hemoglobin 10.1 g/dL Hematocrit 31.4 % Mean Corpuscular Volume 104.7 fL Mean Corpuscular Hemoglobin 33.7 pg Mean Corpuscular Hemoglobin Concent 32.2 g/dl Platelet Count 57 K/uL Mean Platelet Volume 11.4 fL Neutrophils (%) (Auto) 86.0 % Lymphocytes (%) (Auto) 9.3 % Monocytes (%) (Auto) 3.4 % Eosinophils (%) (Auto) 0.8 % Basophils (%) (Auto) 0.0 % Neutrophils # (Auto) 18.53 K/uL Lymphocytes # (Auto) 2.00 K/uL Monocytes # (Auto) 0.74 K/uL Eosinophils # (Auto) 0.18 K/uL Basophils # (Auto) 0.01 K/uL RDW Standard Deviation 69.4 fL RDW Coefficient of Variation 18.2 % Immature Granulocyte % (Auto) 0.5 % Immature Granulocyte # (Auto) 0.11 K/uL Sodium Level 138 mmol/L Potassium Level 4.9 mmol/L Chloride Level 103 mmol/L Carbon Dioxide Level 29 mmol/L Anion Gap 6.0 mmol/L Blood Urea Nitrogen 92 mg/dl Creatinine 1.54 mg/dl Est Creatinine Clear Calc Drug Dose 56.3 ml/min Estimated GFR () 54.5 Estimated GFR (Non- 47.0 BUN/Creatinine Ratio 59.7 Random Glucose 91 mg/dl Calcium Level 7.8 mg/dl Total Bilirubin 5.7 mg/dl Aspartate Amino Transf (AST/SGOT) 60 U/L Alanine Aminotransferase (ALT/SGPT) 65 U/L Alkaline Phosphatase 189 U/L Total Protein 5.1 gm/dl Albumin 2.7 gm/dl Globulin 2.3 gm/dl Albumin/Globulin Ratio 1.1 Assessment and Plan Problem list: Weakness Pneumonia Cirrhosis with ascites, end-stage Goals of care Palliative care recs: -Patient is DNR/DNI. His is in agreement with this. -After discussion with patient and , plan is for home with hospice when medically stable. -Ascites not reaccumulating fast enough to where a abdominal pleur-x is warranted, especially with risk of complication of these catheters. Plan is to be reactive if ascites reaccumulates causing discomfort. [facility] will do palliative paracentesis if needed. -Possible discharge today, home with hospice. WBC elevated to 21.57 today, hospitalist will speak with GI about possibly sending patient home with PO abx. Patient is fine with this. -POLST form would be helpful, waiting for to be available to complete it at patient's request. Spoke with about this, she will call me if she comes in. Total time spent 35 minutes with >50% of time spent at bedside with patient and on phone with discussing goals of care, code status, and plan of care. Palliative Performance Scale: 50 % Discharge planning: home with Hospice
[2018-05-18] MEDS ORDERED: OXYCODONE HCL IR 5 MG TAB (IMMEDIATE RELEASE) PO ONE (11:45)
[2018-05-18 11:57] VITALS: BP 123/61; PULSE 56; TEMP 36.4; O2SAT 93
--- NOTE | 2018-05-18 13:32 | Discharge Summary ---
Discharge Summary Date of Service May 18, 2018. Discharge Summary Admission Date: May 05, 2018 at 00:52 Discharge Date: May 18, 2018 Discharge Disposition: Home with services Principal Diagnosis: Liver Cirrhosis and Pneumonia Immunizations: Have You Had Influenza Vaccine: Yes History of Tetanus Vaccine?: Yes History of Pneumococcal: Yes History of Hepatitis B Vaccine: No Procedures: BILIARY ABDOMEN LIMITED CLINICAL HISTORY: elevated LFTs, enlarged CBD on prev exam TECHNIQUE: Ultrasound COMPARISON STUDY: 05/05/2018 FINDINGS: Small amount of ascites. Somewhat heterogeneous liver configuration without a cortical scarring suggesting cirrhotic change. , A show a moderate amount of sludge and small gallstones within the gallbladder lumen. Common bile duct to 1.3 cm essentially unchanged in the prior study. No intrahepatic biliary distention. Right kidney is negative for hydronephrosis. 6 cm upper pole exophytic cyst. IMPRESSION: 1. Hepatic cirrhosis unchanged. 2. Gallbladder contains gallstones and sludge similar to the prior study. 3. Common bile duct is distended to 1.3 cm essentially unaltered from the prior study. 4. Trace upper quadrant ascites. 5. 6 cm upper pole right renal cyst. SINGLE VIEW CHEST CLINICAL HISTORY: Pneumonia. FINDINGS: 2 AP, portable, upright chest radiographs R compared to study performed earlier the same day 05/08/2018 and correlated with chest CT dated 11/24/2017. The The examination is degraded by portable technique and apical lordotic positioning. . The heart is enlarged and there is atherosclerotic calcification of the thoracic aorta. The pulmonary vasculature is noncongested. Enlargement of the main pulmonary arteries is unchanged and suggests pulmonary artery hypertension. Emphysema and chronic interstitial thickening are similar to previous. There is improved aeration at the right lung base. Consolidative change is again seen at the left lung base in the retrocardiac region. No large pleural effusion is identified. There is no pneumothorax. The skeletal structures are osteopenic. The bony thorax appears intact. IMPRESSION: 1. Cardiomegaly and emphysema. There is no radiographic evidence of congestive failure. 2. There is improved aeration of the right lung base. Persistent consolidation is seen at the left lung base and suggests pneumonia. Continued follow-up to resolution is recommended. Consultations: Gastroenterology, Nephrology, Palliative care Medication Reconciliation New Medications: Amiodarone HCl (Amiodarone HCl) 200 Mg Tab 200 MG PO QAM for 30 Days, #30 TAB 3 Refills Carvedilol (Carvedilol) 3.125 Mg Tab 3.125 MG PO DAILY for 30 Days, #30 TAB 3 Refills Furosemide (Furosemide) 20 Mg Tab 10 MG PO QAM for 30 Days, #15 TAB 3 Refills Midodrine (Midodrine HCl) 2.5 Mg Tab 7.5 MG PO 0800,1200,1600 for 30 Days, #90 TAB 4 Refills Continued Medications: Ergocalciferol (Vitamin D 75465 Unit) 50,000 Unit Cap 46731 INTER.UNIT PO WK TAKE THIS MEDICATION EVERY THURSDAY Fluticasone Prop/Salmeterol (Advair Diskus 500/50 60 Dose) 1 Ea Aerp 1 PUFF INH BID Home O2 Therapy (Oxygen) Gas 2 LITERS NA HS, BTL Ipratropium-Albuterol (Combivent Respimat) 1 Aer Aer 1 PUFF INH QID PRN for SOB/Wheezing Nitroglycerin (Nitrostat) 0.4 Mg Tab 0.4 MG UT UD PRN for Chest Pain, BTL Omeprazole (Prilosec) 20 Mg Cap 40 MG PO BID Discontinued Medications: Midodrine Hcl (Midodrine Hcl) 5 Mg Tab 5 MG PO TID Potassium Ext Rel (Klor-Con) 20 Meq Tabcr 20 MEQ PO BID Discharge Exam Mr. Crowley reports he feels fine today and is very eager to be discharged. He denies chest pain, shortness of breath, abdominal pain, nausea or vomiting. Review of Systems: Constitutional: No fever, No chills Respiratory: No shortness of breath Cardiovascular: No chest pain Abdomen: No nausea, No vomiting Physical Exam: General Appearance: WD/WN, no apparent distress Eyes: + pertinent finding (scleral icterus) Respiratory/Chest: lungs clear, normal breath sounds, no respiratory distress, no accessory muscle use Cardiovascular: regular rate, rhythm, no edema, no gallop, no murmur, + pertinent finding (bilateral 1-2+ edema) Neurologic/Psychiatric: alert, normal mood/affect, oriented x 3 Hospital Course Mr. Crowley is a 63-year-old male admitted on 04 May 2018 for worsening fatigue and cough over a few weeks. PMH: Decompensated cirrhosis, CHF, COPD, Atrial fibrillation, HLD, HTN, CKD stage 4, electrolyte issues (sodium and potassium), pneumonia, upper GI bleed Healthcare acquired pneumonia: - Treated with Vanc/Zosyn based on admission xray - resolved COPD exacerbation: -Baseline 2 L nasal cannula at night only at home, on 3 L currently - On his home Advair ad combivent - Treated with high dose IV steroids, tapered too d/c on discharge. 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 Proctor at [place]. - Patient's meld score is 26. [place] is pending six months of sobriety ( September) before initiating liver transplant workup. - Patient has elected to go home on hospice. CM set up with [facility], who can perform palliative paracentesis if necessary - Esophageal varices, portal hypertension, PUD: Is on Coreg. INR has remained stable around 1.6 - 1.7. Is off anticoagulation due to risk of recurrent GI bleed. Leukocytosis secondary to steroid treatment vs SBP - persistent leukocytosis since admission -> reactive due to steroid treatment vs. SBP? Discussed w/GI who felt that pt did not require treatment given afebrile w/out abdominal tenderness and previous paracentesis on May 06 and May 11 w/o signs of infection DOMINIQUE with history of stage IV CKD: - Admit Cr 2.6, improved back to baseline, 1.5 on discharge - Nephrology consulted -> continue increased dose of midodrine for BP control - will decrease dose of Coreg to daily from BID given lower BP - will start low dose (10mg daily PO Lasix) for diuresis -> can increase if worsening abdominal/leg swelling Mild confusion and elevated ammonia level: - Likely hepatic encephalopathy - resolved Thrombocytopenia: - Platelets stable at 57 - No evidence of acute bleeding. Hyperkalemia: - Admit K 5.6, currently with a K of 4.9. - d/c potassium supplements Possible moderate malnutrition - Recommend low-fat, low-salt diet. Paroxysmal A. fib: - On Coreg and amiodarone. - no anticoagulation due to recent GI bleed Hyperlipidemia: - Not on statin due to liver disease. Resident Physician Supervision Note: I interviewed and examined the patient. Discussed with the resident physician and agree with findings and plan as documented in the note. Any exceptions or clarifications are listed here: Patient is without complaint today and looking forward to discharge. He is agreeable to home hospice services; he may be a candidate for liver transplant consideration if he maintains 6 months of sobriety. He understands that he can revoke hospice privileges at any point, otherwise I think he would be well served in hospice in terms of symptom control up until the point of liver transplantation if that is indeed deemed a appropriate. The patient does have a leukocytosis but does no other signs and symptoms to suggest SBP; signs and symptoms of this were again discussed with the patient. Documented By: Terrance Andrade Total Time Spent: Greater than 30 minutes This includes examination of the patient, discharge planning, medication reconciliation, and communication with other providers. Discharge Instructions Please refer to the electronic Patient Visit Report (Discharge Instructions) for additional information. Additional Copies To Luis Azevedo M.D. Resident Tracking Resident Involvement: Resident Care Provided Care Provided: Adult [facility]
== END 2018-05-18 13:50 | disposition hospice, home (50) | DRG 177 ==
LOC: C.EDB 20:06 → EDBD 20:06 → C.2E 05-05 00:52 → ENRESERV 05-05 00:59 → C.MS2W 05-11 11:59
PROVIDERS: ADMIT Internal Medicine; ATTEND Hospitalist
DX: J15.6 Pneumonia due to other Gram-negative bacteria (principal); K76.7 Hepatorenal syndrome; N17.9 Acute kidney failure, unspecified; J44.0 Chronic obstructive pulmonary disease with (acute) lower respiratory infection; N18.4 Chronic kidney disease, stage 4 (severe); J44.1 Chronic obstructive pulmonary disease with (acute) exacerbation; I48.0 Paroxysmal atrial fibrillation; K76.6 Portal hypertension; I50.30 Unspecified diastolic (congestive) heart failure; E44.0 Moderate protein-calorie malnutrition; I85.10 Secondary esophageal varices without bleeding; I48.92 Unspecified atrial flutter; K70.31 Alcoholic cirrhosis of liver with ascites; K74.60 Unspecified cirrhosis of liver; Z82.49 Family history of ischemic heart disease and other diseases of the circulatory system; E87.1 Hypo-osmolality and hyponatremia; Z51.5 Encounter for palliative care; I12.9 Hypertensive chronic kidney disease with stage 1 through stage 4 chronic kidney disease, or unspecified chronic kidney disease; K70.10 Alcoholic hepatitis without ascites; E78.5 Hyperlipidemia, unspecified; K70.40 Alcoholic hepatic failure without coma; D69.6 Thrombocytopenia, unspecified; E87.5 Hyperkalemia; K75.4 Autoimmune hepatitis; Z66 Do not resuscitate; F17.200 Nicotine dependence, unspecified, uncomplicated